=== PATIENT | female | born 1935 | race Caucasian/White ===

== ENCOUNTER 2016-07-31 08:41 | Outpatient (RCR) | payer MEDICARE ==
--- OUTSIDE RECORDS SUMMARY | 2016-07-03 09:04 | XMS REPORT | Continuity of Care Document ---
Author Author [facility] Organization [facility] Address Unknown Phone Unavailable Care Team Providers Care Senior Java Web Developer Name Role Phone Eugene Mcneill PCP [phone] Source Comments Some departments are not documenting in the electronic medical record. If you do not see the information that you expected, contact Release of Information in the Health Information Management department at [phone] for further assistance in locating additional records.[facility] Active Allergies and Adverse Reactions No Known Allergies Current Medications Prescription Sig. Disp. Refills Start End Date Status Date insulin glargine (LANTUS Inject 40 Units into Active SOLOSTAR) 100 unit/mL (3 area(s) as directed at mL) injection PEN bedtime daily. insulin lispro(+) Inject 12 Units into Active (HUMALOG) 100 unit/mL area(s) as directed three injection times daily before meals. amLODIPine (NORVASC) 10 Take 10 mg by mouth Active mg tablet daily. telmisartan (MICARDIS) 80 Take 80 mg by mouth Active mg tablet daily. levothyroxine (SYNTHROID) Take 150 mcg by mouth Active 150 mcg tablet daily. simvastatin (ZOCOR) 20 mg Take 20 mg by mouth at Active tablet bedtime daily. estrogens, conjugated Take 1.25 mg by mouth Active (PREMARIN) 1.25 mg tablet daily. esomeprazole DR(+) Take 40 mg by mouth every Active (NEXIUM) 40 mg capsule morning. tolterodine LA(+) (DETROL Take 4 mg by mouth daily. Active LA) 4 mg capsule clorazepate (TRANXENE Take 7.5 mg by mouth Active T-TAB) 7.5 mg tablet twice daily. gabapentin (NEURONTIN) Take 300 mg by mouth Active 300 mg capsule three times daily. carbidopa/levodopa Take 1 Tab by mouth three Active (SINEMET) 25/100 mg times daily. tablet oxyCODONE SR (OXYCONTIN) Take 20 mg by mouth every Active 20 mg tablet 12 hours oxyCODONE SR (OXYCONTIN) Take 10 mg by mouth every Active 10 mg tablet 12 hours [place]-3 Acid Ethyl Esters Take 1 g by mouth twice Active (LOVAZA) 1 gram cap daily with meals. GUAIFENESIN (MUCINEX PO) Take 600 mg by mouth. Active ascorbic acid (VITAMIN-C) Take 500 mg by mouth Active 500 mg tablet daily. CALCIUM CARBONATE/VITAMIN Take by mouth. Active D3 (CALCIUM + D PO) MULTIVITAMINS W/C PO Take by mouth. Active BLOOD GLUCOSE CONTROL Use as directed. Active HIGH&LOW (ASCENSIA AUTODISC MISC) ALPRAZolam (XANAX) 0.25 Take 0.25 mg by mouth at Active mg tablet bedtime as needed. fexofenadine(+) (DAGOBERTO) Take 180 mg by mouth Active 180 mg tablet daily. furosemide (LASIX) 20 mg Take 20 mg by mouth Active tablet daily. potassium chloride SR Take 20 mEq by mouth Active (K-DUR) 20 mEq tablet daily. hydrOXYzine (ATARAX) 25 Take 25 mg by mouth three Active mg tablet times daily as needed. diazepam (VALIUM) 5 mg Take 1 tab with only 1 oz 1 Tab 0 08/17/19 Active tablet of water 1 hour before 15 your MRI. Active Problems Problem Noted Date Abdominal pain 11/15/2014 Hypertension 07/28/2014 Diabetes mellitus (HCC) 07/28/2014 Social History Tobacco Use Types Packs/Day Years Used Date Never Smoker Alcohol Use Drinks/Week oz/Week Comments No Last Filed Vital Signs Vital Sign Reading Time Taken Blood Pressure 173/74 11/09/2014 11:06 AM CDT Pulse 70 11/09/2014 11:06 AM CDT Temperature 36.8 C (98.3 F) 11/09/2014 11:01 AM CDT Respiratory Rate 14 11/09/2014 11:01 AM CDT Height 1.58 m (5' 2.21") 11/09/2014 11:01 AM CDT Weight 94.348 kg (208 lb) 11/09/2014 11:01 AM CDT Body Mass Index 37.79 11/09/2014 11:01 AM CDT Oxygen Saturation - - Plan of Care Health Maintenance Due Date Last Done Comments Physical (Comprehensive) 1942 Exam Pertussis Vaccine 1946 Tetanus Vaccine 1952 Breast Cancer Screening 1975 Shingles Vaccine 1995 Osteoporosis Screening 2000 Prevnar/Pneumovax (#1) 2000 Influenza Vaccine 03/21/2015 Results from Last 3 Months Not on file
[~2016-07-31 08:41] MED LIST: ACCURETIC PO; ALPR.25T PO; ALPR0.254 PO; ALPR0.5T22; AML5T PO; AMLO10TA2 PO; AMLO10TA82 PO; AMOX-355 PO; ASCO10006 PO; ATR20T; AZEL137S2 NS; C250T PO; CARB1TAB19 PO; CARB1TAB6 PO; CARV12.5; CLD600T PO; CLN.1T; CLOB15OI2 TOP; CLON0.1T PO; CLOR7.5T3 PO; CLR7.5T PO; CTLP20T PO; DICL100G20 TOP; DM/P1CAP51 PO; ESOM40CA52 PO; EST1.25T PO; FEXO180T PO; FURO20TA4 PO; GABA-488 PO; GBPN100C; GBPN100C PO; GBPN300C PO; GFN600TCR; GFN600TCR PO; GLUCOVANCE; GUAI120013 PO; HYDR-34; HYDR-707 PO; INSASP10V; INSASP10V SQ; INSU100C4 SQ; INSU100I10 SQ; INSU100I23 SQ; INSU100V6 SQ; INSU100V8; LEVO125T PO; LEVO125T6 PO; LEVO137T17 PO; LEVO150T PO; LEVO25TA5 PO; LOVAZA; LVCR25100; LVT.1T; MULT1TAB63 PO; NF-ESOM40C PO; NF-LOVAZAC PO; NF-METANX; OMEG-105 PO; ONDA8TAB9 PO; OXYC10TA7 PO; OXYC20TA63 PO; OXYM30SP NS; PATANOL 0.1%; POLY17PO23 PO; POTA20TA15 PO; POTA20TA8 PO; PRD1T PO; PRD20T PO; PROP1TAB77; SCR1T1 PO; SIMV20TA3 PO; SIMV40TA2 PO; TELM80TA5 PO; TOLT4CAP13 PO; TOLTA4 PO; VITAMIN C 1000MG PO; [UNRECOGNIZED DRUG - CODE] PO; [UNRECOGNIZED DRUG - CODE] TOP
== END 2016-07-31 16:00 | disposition home or self-care (01) ==
LOC: WOUNDCARE 08:41
PROVIDERS: ATTEND Surgery
DX: L12.0 Bullous pemphigoid (principal); L97.222 Non-pressure chronic ulcer of left calf with fat layer exposed; D69.3 Immune thrombocytopenic purpura
CPT/HCPCS: 11042; 87070; 87075; 87077; 87186; 87205; 99212

== ENCOUNTER → 2016-08-07 | Outpatient (CLI) | payer MEDICARE ==
--- OUTSIDE RECORDS SUMMARY | 2016-08-07 08:55 | XMS REPORT | Continuity of Care Document ---
Author Author [facility] Organization [facility] Address Unknown Phone Unavailable Care Team Providers Care Agent Ticketing Gate Name Role Phone Eugene Mcneill PCP [phone] Source Comments Some departments are not documenting in the electronic medical record. If you do not see the information that you expected, contact Release of Information in the Health Information Management department at [phone] for further assistance in locating additional records.[facility] Active Allergies and Adverse Reactions No Known [...] every Active 10 mg tablet 12 hours [place]-3 Acid Ethyl Esters Take 1 g by [...]
--- NOTE | 2016-08-07 10:03 | Diagnostic Imaging Report ---
PROCEDURE: US abdomen complete. TECHNIQUE: Multiple real-time grayscale images were obtained over the abdomen in various projections. INDICATION: Abdominal pain after eating. FINDINGS: The dome of the liver is not well visualized due to patient's body habitus. There is diffuse increased echogenicity of the liver compatible with fatty infiltration. The gallbladder is surgically absent. There is mild prominence of the common bile duct up to 8 mm. This is likely reflective of previous cholecystectomy and the patient's age. The pancreas is obscured by bowel gas. Spleen is normal in size. The distal aorta is normal in caliber; however, the proximal aorta is not well seen. IVC is not well seen. Both kidneys are unremarkable. There is no ascites. IMPRESSION: Fatty infiltration of the liver. Previous cholecystectomy. Otherwise unremarkable abdominal ultrasound. Dictated by: Dictated on workstation # [id number]
== END ==
LOC: RAD 08:52
PROVIDERS: ATTEND Internal Medicine
DX: K55.9 Vascular disorder of intestine, unspecified (principal)
CPT/HCPCS: 76700

== ENCOUNTER → 2016-08-19 | Outpatient (CLI) | payer MEDICARE, BC ==
--- OUTSIDE RECORDS SUMMARY | 2016-08-19 09:52 | XMS REPORT | Continuity of Care Document ---
Author Author [facility] Organization [facility] Address Unknown Phone Unavailable Care Team Providers Care Instrument Tech Name Role Phone Eugene Mcneill PCP [phone] Source Comments Some departments are not documenting in the electronic medical record. If you do not see the information that you expected, contact Release of Information in the Health Information Management department at [phone] for further assistance in locating additional records.[facility] Active Allergies and Adverse Reactions [...] every Active 10 mg tablet 12 hours [place]-3 Acid Ethyl Esters Take 1 g by [...]
--- NOTE | 2016-08-19 13:28 | Diagnostic Imaging Report ---
INDICATION: Abdominal pain. TECHNIQUE: Duplex evaluation of the aorta and mesenteric branches was performed. FINDINGS: The aorta is normal in caliber and has normal blood flow. There is detectable flow in the superior mesenteric artery. The celiac axis could not be located or assessed. IMPRESSION: The upper abdominal ultrasound to evaluate the vascular structures is limited. The aorta is patent but its branches are obscured by bowel gas. Dictated by: Dictated on workstation # [id number]
== END ==
LOC: RAD 09:49
PROVIDERS: ATTEND Internal Medicine
DX: R10.84 Generalized abdominal pain (principal)
CPT/HCPCS: 93975

== ENCOUNTER → 2017-01-14 | Outpatient (CLI) | payer MEDICARE, BC ==
--- NOTE | 2017-01-14 17:19 | Diagnostic Imaging Report ---
INDICATION: Right foot pain and swelling. TECHNIQUE: AP, oblique, and lateral views of the right foot are obtained. FINDINGS: There are minimally displaced fractures involving the proximal shafts of the second and third metatarsal bones. There is associated degenerative change of the first through third tarsometatarsal joints. There is also rather advanced degenerative change in the great toe with flexion contractures of second through fifth toes. There is plantar calcaneal spurring. Swelling is noted about the midfoot. IMPRESSION: Minimally displaced fractures involving the proximal shafts of second and third metatarsal bones. Intra-articular extension is not excluded. Otherwise, there are degenerative changes in the right foot without other acute fracture or dislocation detected. Dictated by: Dictated on workstation # [id number]
== END ==
LOC: RAD 14:22
PROVIDERS: ATTEND Internal Medicine
DX: S92.321A Displaced fracture of second metatarsal bone, right foot, initial encounter for closed fracture (principal); S92.331A Displaced fracture of third metatarsal bone, right foot, initial encounter for closed fracture; M19.071 Primary osteoarthritis, right ankle and foot; X58.XXXA Exposure to other specified factors, initial encounter; Y99.8 Other external cause status
CPT/HCPCS: 73630

== ENCOUNTER → 2017-02-06 | Outpatient (CLI) | payer MEDICARE, BC ==
[2017-02-06 10:11] LABS: BASOPHILS # (AUTO) 0.1 10^3/uL (0.0-0.1); BASOPHILS % (AUTO) 1 % (0-10); EOSINOPHILS # (AUTO) 0.2 10^3/uL (0.0-0.3); EOSINOPHILS % (AUTO) 3 % (0-10); LYMPHOCYTES # (AUTO) 2.1 X 10^3 (1.0-4.0); LYMPHOCYTES % (AUTO) 32 % (12-44); MEAN CORPUSCULAR HEMOGLOBIN 29 PG (25-34); MEAN CORPUSCULAR HGB CONC 32 G/DL (32-36); MEAN CORPUSCULAR VOLUME 91 FL (80-99); MONOCYTES # (AUTO) 0.6 X 10^3 (0.0-1.0); MONOCYTES % (AUTO) 9 % (0-12); NEUTROPHILS # (AUTO) 3.7 X 10^3 (1.8-7.8); NEUTROPHILS % (AUTO) 55 % (42-75); PLATELET COUNT 206 10^3/uL (130-400); RED BLOOD COUNT 4.66 10^6/uL (4.35-5.85); RED CELL DISTRIBUTION WIDTH 14.6 % (10.0-14.5); WHITE BLOOD COUNT 6.7 10^3/uL (4.3-11.0)
[2017-02-06 10:39] LABS: ALANINE AMINOTRANSFERASE 17 U/L (0-55); ALBUMIN 3.5 GM/DL (3.2-4.5); ANION GAP 9 MMOL/L (5-14); ASPARTATE AMINO TRANSFERASE 15 U/L (5-34); BILIRUBIN,TOTAL 0.5 MG/DL (0.1-1.0); BLOOD UREA NITROGEN 13 MG/DL (7-18); BUN/CREATININE RATIO 15; CARBON DIOXIDE 29 MMOL/L (21-32); CHLORIDE 102 MMOL/L (98-107); CREATININE SERUM 0.89 MG/DL (0.60-1.30); GFR ESTIMATED > 60; GLUCOSE 275 MG/DL (70-105); LACTATE DEHYDROGENASE 183 U/L (125-220); POTASSIUM 3.6 MMOL/L (3.6-5.0); SODIUM 140 MMOL/L (135-145); TOTAL PROTEIN 6.7 GM/DL (6.4-8.2)
== END ==
LOC: ONC 09:43
PROVIDERS: ATTEND Internal Medicine Hematology & Oncology
DX: D69.3 Immune thrombocytopenic purpura (principal); D64.9 Anemia, unspecified; E11.9 Type 2 diabetes mellitus without complications; Z79.4 Long term (current) use of insulin; Z79.899 Other long term (current) drug therapy
CPT/HCPCS: 36415; 80053; 83615; 85025; 99213

== ENCOUNTER → 2017-10-08 | Outpatient (CLI) | payer MEDICARE, BC | LOC: WOUNDCARE 12:40 | PROVIDERS: ATTEND Surgery | DX: L98.491 Non-pressure chronic ulcer of skin of other sites limited to breakdown of skin (principal); L22 Diaper dermatitis | CPT/HCPCS: 99213 ==

== ENCOUNTER → 2017-10-13 | Outpatient (CLI) | payer MEDICARE, BC | LOC: WOUNDCARE 09:37 | PROVIDERS: ATTEND Surgery | DX: L98.491 Non-pressure chronic ulcer of skin of other sites limited to breakdown of skin (principal); L22 Diaper dermatitis | CPT/HCPCS: 99212 ==

== ENCOUNTER 2018-02-16 09:24 | Outpatient (RCR) | payer MEDICARE, BC ==
[~2018-02-16 09:24] MED LIST changes: -AMLO10TA2 PO; +AMLO10TA6 PO; -TELM80TA5 PO; +TELM80TA8 PO
[2018-02-16 09:38] LABS: BASOPHILS # (AUTO) 0.1 10^3/uL (0.0-0.1); BASOPHILS % (AUTO) 1 % (0-10); EOSINOPHILS # (AUTO) 0.2 10^3/uL (0.0-0.3); EOSINOPHILS % (AUTO) 3 % (0-10); HEMATOCRIT 41 % (35-52); HEMOGLOBIN 13.9 G/DL (11.5-16.0); LYMPHOCYTES # (AUTO) 2.3 X 10^3 (1.0-4.0); LYMPHOCYTES % (AUTO) 29 % (12-44); MEAN CORPUSCULAR HEMOGLOBIN 31 PG (25-34); MEAN CORPUSCULAR HGB CONC 34 G/DL (32-36); MEAN CORPUSCULAR VOLUME 91 FL (80-99); MEAN PLATELET VOLUME 11.2 FL (7.4-10.4); MONOCYTES # (AUTO) 0.6 X 10^3 (0.0-1.0); MONOCYTES % (AUTO) 7 % (0-12); NEUTROPHILS # (AUTO) 4.6 X 10^3 (1.8-7.8); NEUTROPHILS % (AUTO) 60 % (42-75); PLATELET COUNT 178 10^3/uL (130-400); RED BLOOD COUNT 4.51 10^6/uL (4.35-5.85); RED CELL DISTRIBUTION WIDTH 13.6 % (10.0-14.5); WHITE BLOOD COUNT 7.7 10^3/uL (4.3-11.0)
[2018-02-16 09:55] LABS: ALBUMIN 3.7 GM/DL (3.2-4.5); BILIRUBIN,TOTAL 0.3 MG/DL (0.1-1.0); CALCIUM 8.9 MG/DL (8.5-10.1); POTASSIUM 4.1 MMOL/L (3.6-5.0); TOTAL PROTEIN 6.9 GM/DL (6.4-8.2)
[2018-02-16] MEDS ORDERED: inSUlin (REGULAR) HUMAN 1 UNIT/0.01 ML (CHARGE PER UNIT) SC ONE (11:05)
== END 2018-02-17 | disposition home or self-care (01) ==
LOC: ONC 09:24
PROVIDERS: ATTEND Internal Medicine Hematology & Oncology
DX: D69.3 Immune thrombocytopenic purpura (principal); D64.9 Anemia, unspecified; E11.9 Type 2 diabetes mellitus without complications; Z79.4 Long term (current) use of insulin; Z79.899 Other long term (current) drug therapy
CPT/HCPCS: 36415; 80053; 83615; 85025; 96372

== ENCOUNTER → 2018-04-09 | Outpatient (CLI) | payer MEDICARE, BC ==
[~2018-04-09] MED LIST changes: +IOHEXOL 350 MG/ML 100 ML (OMNIPAQUE 350) VIAL IV ONE; +NS 250 ML (IVPB) BAG IV ONE
[2018-04-09 08:08] LABS: BASOPHILS # (AUTO) 0.1 10^3/uL (0.0-0.1); BASOPHILS % (AUTO) 1 % (0-10); EOSINOPHILS # (AUTO) 0.3 10^3/uL (0.0-0.3); EOSINOPHILS % (AUTO) 4 % (0-10); HEMATOCRIT 40 % (35-52); LYMPHOCYTES # (AUTO) 3.4 X 10^3 (1.0-4.0); LYMPHOCYTES % (AUTO) 48 % (12-44); MEAN CORPUSCULAR HEMOGLOBIN 31 PG (25-34); MEAN CORPUSCULAR HGB CONC 35 G/DL (32-36); MEAN CORPUSCULAR VOLUME 88 FL (80-99); MEAN PLATELET VOLUME 10.7 FL (7.4-10.4); MONOCYTES # (AUTO) 0.5 X 10^3 (0.0-1.0); MONOCYTES % (AUTO) 7 % (0-12); NEUTROPHILS # (AUTO) 2.9 X 10^3 (1.8-7.8); NEUTROPHILS % (AUTO) 41 % (42-75); PLATELET COUNT 193 10^3/uL (130-400); RED BLOOD COUNT 4.57 10^6/uL (4.35-5.85); RED CELL DISTRIBUTION WIDTH 14.2 % (10.0-14.5)
[2018-04-09 08:33] LABS: ALBUMIN 3.7 GM/DL (3.2-4.5); BILIRUBIN,TOTAL 0.3 MG/DL (0.1-1.0); CALCIUM 9.4 MG/DL (8.5-10.1); CREATININE SERUM 0.96 MG/DL (0.60-1.30); POTASSIUM 3.3 MMOL/L (3.6-5.0); TOTAL PROTEIN 6.6 GM/DL (6.4-8.2)
--- NOTE | 2018-04-09 10:50 | Diagnostic Imaging Report ---
PROCEDURE: CT abdomen and pelvis with contrast. TECHNIQUE: Multiple contiguous axial images were obtained through the abdomen and pelvis after administration of intravenous contrast. INDICATION: Mid and upper abdominal pain. Comparison is made with prior CT from 06/09/2014. The lung bases are clear. Areas of hypodensity noted on previous exam within the liver are not apparent on today's study. No discrete liver mass is seen. Gallbladder is surgically absent. The pancreas is atrophic. The spleen is unremarkable. No adrenal mass is detected. The kidneys are unremarkable. There appear to be post surgical changes to the abdomen of a right hemicolectomy with ileocolic anastomosis. The visualized small bowel loops are normal caliber. No definite small bowel obstruction is seen. There is some moderate fluid-filled distention of the colon. No free fluid is identified. No inflammatory process is seen. Aorta is non-aneurysmal. Bladder is unremarkable. No abdominal or pelvic lymphadenopathy is seen. IMPRESSION: 1. Postsurgical changes in abdomen. No acute feature in the abdomen or pelvis is seen. Dictated by: Dictated on workstation # [id number]
== END ==
LOC: RAD 07:49
PROVIDERS: ATTEND Internal Medicine
DX: R10.84 Generalized abdominal pain (principal); E11.65 Type 2 diabetes mellitus with hyperglycemia; E03.9 Hypothyroidism, unspecified; E78.00 Pure hypercholesterolemia, unspecified
CPT/HCPCS: 36415; 74177; 80053; 82150; 83690; 85025

== ENCOUNTER 2018-04-10 05:36 | Outpatient (CLI) | payer MEDICARE, BC ==
[~2018-04-10] VITALS: Ht 157.5 cm; Wt 101.6 kg
[~2018-04-10 05:36] MED LIST changes: -IOHEXOL 350 MG/ML 100 ML (OMNIPAQUE 350) VIAL IV ONE; -NS 250 ML (IVPB) BAG IV ONE
== END 2018-04-10 09:28 | disposition home or self-care (01) ==
LOC: PREOP 05:36
PROVIDERS: ATTEND Surgery
DX: Z01.818 Encounter for other preprocedural examination (principal)

== ENCOUNTER 2018-04-13 06:30 | Day surgery (SDC) | payer MEDICARE, BC ==
[~2018-04-13] VITALS: Ht 157.5 cm; Wt 101.6 kg
--- OUTSIDE RECORDS SUMMARY | 2018-04-13 06:36 | XMS REPORT | Clinical Summary ---
Author Author [facility] Organization [facility] Address Unknown Phone Unavailable Care Team Providers Care Structural Steel Painter Name Role Phone Eugene Mcneill MD Unavailable Eugene Mcneill MD PCP Devin Stevens MD Unavailable Source Comments Some departments are not documenting in the electronic medical record. If you do not see the information that you expected, contact Release of Information in the Health Information Management department at [phone] for further assistance in locating additional records.[facility] Allergies No Known Allergies Current Medications Prescription Sig. [...] every Active 10 mg tablet 12 hours [place]-3 Acid Ethyl Esters Take 1 g by [...] 11/15/2014 Hypertension 07/28/2014 Diabetes mellitus (HCC) 07/28/2014 Family History Relation Name Status Comments Social History Tobacco Use Types Packs/Day Years Used Date Never Smoker Alcohol Use Drinks/Week oz/Week Comments No Sex Assigned at Date Recorded Not on file Last Filed Vital Signs Vital Sign Reading Time Taken Blood Pressure 173/74 11/09/2014 11:06 AM CDT Pulse 70 11/09/2014 11:06 AM CDT Temperature 36.8 C (98.3 F) 11/09/2014 11:01 AM CDT Respiratory Rate 14 11/09/2014 11:01 AM CDT Oxygen Saturation - - Inhaled Oxygen - - Concentration Weight 94.3 kg (208 lb) 11/09/2014 11:01 AM CDT Height 158 cm (5' 2.21") 11/09/2014 11:01 AM CDT Body Mass Index 37.79 11/09/2014 11:01 AM CDT Plan of Treatment Health Maintenance Due Date Last Done Comments PHYSICAL (COMPREHENSIVE) 1942 EXAM PERTUSSIS VACCINE 1946 TETANUS VACCINE 1952 SHINGLES RECOMBINANT 1985 VACCINE (1 of 2) OSTEOPOROSIS SCREENING 2000 PNEUMONIA (PCV13/PPSV23) 2000 VACCINES (1 of 2 - PCV13) INFLUENZA VACCINE 04/20/2018 Results Not on filefrom Last 3 Months
--- OUTSIDE RECORDS SUMMARY | 2018-04-13 06:38 | XMS REPORT | Clinical Summary ---
Author Author User, ALEXANDREA Organization [facility] Physician [place] Address Unknown Phone Unavailable Allergies, Adverse Reactions, Alerts Allergy Name Reaction Description Start Date Severity Status Provider ANNETTE Critical No Longer Active Tressa Stephens Conditions or Problems Problem Name Problem Code Onset Date Status Entry Date Provider Comment Standard Description Annotate DIABETES MELLITUS, TYPE II, UNCONTROLLED, W/VASCULAR COMPS 250.72 Active Tressa Stephens Diabetes mellitus with peripheral circulatory disorders, type II or unspecified type, uncontrolled HYPOTHYROIDISM 244.9 Active Tressa Stephens Unspecified hypothyroidism HYPERCHOLESTEROLEMIA 272.0 Active Tressa Stephens Pure hypercholesterolemia HYPERTENSION, ACCELERATED OR MALIGNANT 401.0 Active Tressa Stephens Malignant essential hypertension OSTEOARTHRITIS 715.90 Active Tressa Stephens Osteoarthrosis, unspecified whether generalized or localized, involving unspecified site GASTROESOPHAGEAL REFLUX DISEASE, CHRONIC 530.81 Active Tressa Stephens Esophageal reflux HRT V07.4 Active Tressa Stephens Hormone replacement therapy (postmenopausal) BACK PAIN 724.5 Resolved Tressa Stephens Backache, unspecified FOOT PAIN, RIGHT 729.5 Resolved Tressa Stephens Pain in limb DIARRHEA, ACUTE 787.91 Resolved Tressa Stephens Diarrhea DISORDER, VOLUME DEPLETION, HYPOVOLEMIA 276.52 Resolved Tressa Stephens Hypovolemia 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 Resolved Tressa Stephens Herpes zoster with other nervous system complications right shoulder DYSPNEA 786.09 Resolved Tressa Stephens Other dyspnea and respiratory abnormality HYPERTONICITY, BLADDER 596.51 Resolved Tressa Stephens Hypertonicity of bladder EDEMA LEG 782.3 Resolved Tressa Stephens Edema SINUS CONGESTION, CHRONIC 478.1 Resolved Tressa Stephens Other diseases of nasal cavity and sinuses SLEEP APNEA, OBSTRUCTIVE 780.57 Active Tressa Stephens Unspecified sleep apnea CYST, SYNOVIAL, OTHER 727.49 Resolved Tressa Stephens Other ganglion and cyst of synovium, tendon, and bursa right wrist VACCINE AGAINST INFLUENZA V04.81 Resolved Tressa Stephens Need for prophylactic vaccination and inoculation against influenza DYSPHAGIA 787.2 Resolved Tressa Stephens Dysphagia OTHER DYSPHAGIA 787.29 Resolved Tressa Stephens Other dysphagia PNEUMONIA 486 Resolved Tressa Stephens Pneumonia, organism unspecified DEHYDRATION 276.51 Resolved Tressa Stephens Dehydration WHEEZING 786.07 Resolved Tressa Stephens Wheezing BRONCHIECTASIS 494.0 Resolved Tressa Stephens Bronchiectasis without acute exacerbation COUGH 786.2 Resolved Tressa Stephens Cough LEG PAIN, BILATERAL 729.5 Resolved Tressa Stephens Pain in limb SINUSITIS, SPHENOIDAL, ACUTE 461.3 Resolved Tressa Stephens Acute sphenoidal sinusitis 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 Resolved Tressa Stephens Benign neoplasm of adrenal gland PETECHIAE 782.7 Resolved Tressa Stephens Spontaneous ecchymoses 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 Tressa Stephens 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 Tressa Stephens Pemphigoid LYMPHEDEMA 457.1 Active Tressa Stephens Other lymphedema ABDOMINAL PAIN, EPIGASTRIC 789.06 Resolved Tressa Stephens Abdominal pain, epigastric VACCINE AGAINST STREPTOCOCCUS PNEUMONIAE V03.82 Resolved Tressa Stephens Need for prophylactic vaccination against Streptococcus pneumoniae [pneumococcus] SYNCOPE 780.2 Resolved Tressa Stephens Syncope and collapse SICK SINUS SYNDROME 427.81 Resolved Tressa Stephens Sinoatrial node dysfunction CHRONIC PAIN V15.89 Active Tressa Stephens Other specified personal history presenting hazards to health MUSCLE PAIN 729.1 Resolved Tressa Stephens Myalgia and myositis, unspecified POLYMYALGIA RHEUMATICA 725 Resolved Tressa Stephens Polymyalgia rheumatica EDEMA LEG 782.3 Active Tressa Stephens Edema DEHYDRATION 276.51 Resolved Tressa Stephens Dehydration VOMITING, PERSISTENT 536.2 Resolved Tressa Stephens Persistent vomiting PHLEBITIS, SUPERFICIAL ARM VEINS 451.82 Resolved Tressa Stephens Phlebitis and thrombophlebitis of superficial veins of upper extremities COLITIS 558.9 Resolved Tressa Stephens Other and unspecified noninfectious gastroenteritis and colitis ENCEPHALOPATHY, UNSPECIFIED 348.30 Resolved Tressa Stephens Encephalopathy, unspecified COLONIC POLYPS 211.3 Resolved Tressa Stephens Benign neoplasm of colon CELLULITIS 682.9 Inactive Tressa Stephens Cellulitis and abscess of unspecified sites CELLULITIS 682.9 Resolved Tressa Stephens Cellulitis and abscess of unspecified sites KNEE PAIN 719.46 Resolved Tressa Stephesn Pain in joint involving lower leg PETECHIAE 782.7 Resolved Tressa Stephens Spontaneous ecchymoses ABDOMINAL PAIN, EPIGASTRIC 789.06 Active Tressa Stephens Abdominal pain, epigastric POLYMYALGIA RHEUMATICA 725 Resolved Tressa Stephens Polymyalgia rheumatica KNEE PAIN 719.46 Active Tressa Stephens Pain in joint involving lower leg 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 DIARRHEA, RECURRENT 787.91 Active Tressa Stephens Diarrhea Medication List Medication Instructions Start Date Stop Date Generic Name NDC Status Provider Patient Instruction POTASSIUM CHLORIDE ER 20 MEQ CR-TABS 1 PO DAILY POTASSIUM CHLORIDE 61509199093 Active Carlyn Marks HYDROXYZINE HCL 25 MG TABS 1 PO TID prn HYDROXYZINE HCL 82354116923 No Longer Active Tressa Stephens VALIUM 2 MG TAB 1-2 PO before MRI procedure DIAZEPAM 63818199158 No Longer Active Tressa Stephens OXYCONTIN 20 MG [id number] 1 PO Q 12hrs scheduled OXYCODONE HCL No Longer Active Tressa Stephens HUMALOG KWIKPEN 100 UNIT/ML SOPN 12 units before each meal INSULIN LISPRO (HUMAN) 97745570145 Active Tressa Danica Setphens PREDNISONE 20 MG TAB 3 PO at one time daily PREDNISONE 63425384729 No Longer Active Tressa Danica Stephens ZOSTAVAX 38301 UNT/0.65ML SOLR 1 injection once to prevent Shingles ZOSTER VACCINE LIVE 83985028322 No Longer Active Tressa Danica Stephens VOLTAREN 1 % GEL Apply to affected area twice daily prn pain. DICLOFENAC SODIUM 78579980100 No Longer Active Tressaino Stephens ASTEPRO 0.15 % SOLN 1 puff each nostril TID AZELASTINE HCL 30807136420 No Longer Active Tressa Danica Stephens CELEXA 20 MG TABS 1 PO daily CITALOPRAM HYDROBROMIDE 12276910085 No Longer Active Tressa Danica Stephens KEFLEX 500 MG CAP 1 PO TID for 7 days CEPHALEXIN 27473318697 No Longer Active Carlyn Marks SYNTHROID 150 MCG TABS 1 PO Daily LEVOTHYROXINE SODIUM 86853808211 Active Carlyn Marks NEURONTIN 300 MG CAP 1-2 PO BID GABAPENTIN 99866677273 Active Tressa Danica ACEVEDO ODT 8 MG TBDP 1 po q 6hrs prn nausea ONDANSETRON 07940921782 No Longer Active Tressa Danica Stephens CARAFATE 1 GM TABS 1 PO 30 minutes before meals and at bedtime SUCRALFATE 12043050373 No Longer Active Tressa Danica Stephens SYNTHROID 150 MCG TABS 1 PO every other day alternating with 137mcg LEVOTHYROXINE SODIUM 19291999241 No Longer Active Tressa Danica Stephens INDOMETHACIN 50 MG CAPS 1 PO TID for 5 days INDOMETHACIN 83234986588 No Longer Active Tressaino Stephens PREDNISONE 5 MG TABS 2 Po daily for 2 weeks and then change to 1 PO daily for 2 weeks. PREDNISONE 96547674487 No Longer Active Tressa Danica Stephens XANAX 0.25 MG TABS 1-2 PO Q6hrs prn ALPRAZOLAM 58640163416 Active Tressa Danica Stephens LASIX 20 MG TAB 1 PO BID prn swelling FUROSEMIDE 88331823983 Active Tressa Danica Stephens PREDNISONE 20 MG TAB 1 PO daily PREDNISONE 54931897095 No Longer Active Tressaino Stephens FLUDROCORTISONE ACETATE 0.1 MG TABS 1 PO daily FLUDROCORTISONE ACETATE 40123302001 No Longer Active Tressaino Stephens ACCURETIC 20-12.5 MG TABS 1 PO daily QUINAPRIL- HYDROCHLOROTHIAZIDE 55157375586 No Longer Active Tressaino Stephens SYNTHROID 150 MCG TABS 1 PO alternating with 137 mcg every other day LEVOTHYROXINE SODIUM 25590367646 No Longer Active Tressaino Stephens OXYCODONE HCL 10 MG TABS 2 PO Q4hrs prn OXYCODONE HCL 98208203837 Active Tressaino Stephens OXYCONTIN 20 MG [id number] 1 PO Q12hrs scheduled OXYCODONE HCL 90437981043 No Longer Active Tressa Danica Stephens COREG 12.5 MG TABS 1 PO BID for Blood pressure (on hold 04/30) CARVEDILOL 65453360135 No Longer Active Tressa Danica Stephens DAGOBERTO 180 MG TABS 1 PO QD FEXOFENADINE HCL Active Tressaino Stephens ZOCOR 20 MG TAB 1 PO daily SIMVASTATIN 49805554752 Active Tressa Danica Stephens MIRALAX POWD 1 scoop in 4oz of water PO BID POLYETHYLENE GLYCOL 3350 16883065047 Active Susanna Bruno DARVOCET-N 100 100-650 MG TAB 1 PO Q6hrs prn pain PROPOXYPHENE N-APAP 35040414606 No Longer Active Tressa Danica LAW'Wero NASAL SPRAY (DEXAMETHASONE, GENTAMICIN, SALINE) 2 puffs each nostril TID x [address] MYERS NASAL SPRAY ( DEXAMETHASONE, GENTAMICIN, SALINE) No Longer Active Tressa Danica Stephens SINEMET 25-100 MG TABS 1 po TID CARBIDOPA-LEVODOPA 86658941676 Active Tressa Danica Stephens BENADRYL 25 MG CAP 1 PO Q6hrs prn itching DIPHENHYDRAMINE HCL 23052783410 No Longer Active Tressa Danica Stephens NEXIUM 40 MG CPDR 1 PO daily ESOMEPRAZOLE MAGNESIUM 39304971590 Active Tressa Danica Stephens K-PHOS TABS 1 po BID POTASSIUM PHOSPHATE MONOBASIC TABS 89601795101 No Longer Active Tressa Danica Stephens MICARDIS 80 MG TABS 1 po daily TELMISARTAN 05535280104 Active Tressa Danica Stephens MULTIVITAMINS TABS 1 PO QD MULTIPLE VITAMIN 51350440082 No Longer Active Tressaino Stephens LANTUS SOLOSTAR 100 UNIT/ML SOLN 40 units SQ QHS INSULIN GLARGINE 10385812234 Active Tressa Danica Stephens PATANOL 0.1 % SOLN 2 drops in each eye BID prn OLOPATADINE HCL 74145286160 No Longer Active Tressa Danica Stephens FISH OIL 1000 MG CAPS 2 tabs po TID OMEGA-3 FATTY ACIDS 43772464644 No Longer Active Tressa Danica Stephens PREMARIN 1.25 MG TAB 1 PO daily ESTROGENS CONJUGATED 56487738463 Active Tressa Danica Stephens PEN NEEDLES 1/2" 29G X 12MM MISC as directed on the Lantus Pen INSULIN PEN NEEDLE 31330043787 No Longer Active Tressa Danica Stephens BD INSULIN SYRINGE ULTRAFINE 29G X 1/2" 1 ML MISC as directed DX: Diabetes INSULIN SYRINGE-NEEDLE U-100 41434854273 No Longer Active Tressa Danica Stephens LOVAZA 1 GM CAPS 2 po BID [id number] ETHYL ESTERS 06038998222 Active Tressa Danica Stephens PREDNISONE 10 MG TAB 1 PO daily PREDNISONE 47990521915 No Longer Active Tressa Danica Stephens ALPRAZOLAM 0.25 MG TABS 1/2 to 1 tab po q 8 hrs prn anxiety 07/24 ALPRAZOLAM 33475868799 No Longer Active Tressa Danica Stephens TRANXENE-T 7.5 MG TABS 1 po BID prn CLORAZEPATE DIPOTASSIUM 46371190162 Active Tressa Danica Stephens ZESTRIL 20 MG TABS 1 po daily LISINOPRIL 97581253101 No Longer Active Tressa Danica Stephens MUCINEX 600 MG [id number] 1 po TID GUAIFENESIN 81574936950 Active Tressa Danica Stephens DARVOCET-N 100 100-650 MG TAB 1 PO Q6hrs prn pain PROPOXYPHENE N-APAP 87793250907 No Longer Active Tressa Danica Stephens METANX 2.8-25-2 MG TABS 1 PO daily [id number] 14065242607 No Longer Active Tressa Danica Stephens SINEMET 25-100 MG TABS 2 PO BID prn CARBIDOPA-LEVODOPA 45139074945 No Longer Active Tressa Danica Stephens LOVAZA 1 GM CAPS 2 po BID [id number] ETHYL ESTERS 49594167914 No Longer Active Tressa Danica Stephens LORTAB 10 TABS 1 po q 4 hrs prn pain HYDROCODONE- ACETAMINOPHEN TABS 47189758623 No Longer Active Tressa Danica Stephens CALCIUM 600 + D 600-200 MG-UNIT TABS 1 po daily CALCIUM CARBONATE-VITAMIN D 88026333213 Active Tressa Danica Stephens VITAMIN C 500 MG TABS 1 po BID ASCORBIC ACID 93672896628 Active Tressa Danica Stephens CLORAZEPATE DIPOTASSIUM 3.75 MG TABS 1 tab 2 times daily prn CLORAZEPATE DIPOTASSIUM 89137050477 No Longer Active Tressa Danica Stephens PRILOSEC 20 MG CAP CR 1 PO QD OMEPRAZOLE 31453414186 No Longer Active Tressa Danica Stephens PREMARIN 1.25 MG TABS 1 po daily ESTROGENS CONJUGATED 73778144020 No Longer Active Tressa Danica Stephens LIPITOR 20 MG TABS 1 po daily ATORVASTATIN CALCIUM 47913633457 No Longer Active Tressa Danica Stephens CLONIDINE HCL 0.1 MG TAB 1 po BID CLONIDINE HCL 68299170721 No Longer Active Tressa Danica Stephens ACCURETIC 20-12.5 MG TABS 2 PO QAM QUINAPRIL- HYDROCHLOROTHIAZIDE 55471949997 No Longer Active Tressa Danica Stephens MICARDIS 80 MG TABS 1 PO QPM TELMISARTAN 85731704703 No Longer Active Tressa Danica Stephens GLUCOVANCE 5-500 MG TABS 1 tab po BID GLYBURIDE-METFORMIN 11102655413 No Longer Active Tressa Danica Stephens LEVEMIR 100 UNIT/ML SOLN 40 units at HS INSULIN DETEMIR 20741889630 No Longer Active Tressa Danica Stephens TAMIFLU 75 MG CAPS 1 PO daily for 10 days OSELTAMIVIR PHOSPHATE 97759764606 No Longer Active Matthieu Dawson PREDNISONE 10 MG TABS 1 PO Daily PREDNISONE 82184958486 No Longer Active Tressa Danica Stephens LANTUS 100 UNIT/ML SOLN (INSULIN GLARGINE) PEN Take 32 units SQ QHS LANTUS 100 UNIT/ML SOLN (INSULIN GLARGINE) PEN No Longer Active Tressa Stephens CEFTIN 250 MG TABS 1 PO BID CEFUROXIME AXETIL 97062466519 No Longer Active Tressa Danica LAW'Wero NASAL SPRAY (DEXAMETHASONE, GENTAMICIN, SALINE) 2 puffs each nostril TID for [address] MYERS NASAL SPRAY ( DEXAMETHASONE, GENTAMICIN, SALINE) No Longer Active Tressaino Stephens ATROVENT 0.06 % SOLN 2 puffs each nostril TID prn runny nose and sinus drainage IPRATROPIUM BROMIDE 04916817997 No Longer Active Tressaino Stephens MUCINEX DM 30-600 MG TB12 1 PO Q12hrs DEXTROMETHORPHAN- GUAIFENESIN 53401953440 No Longer Active Tressa Stephens ADVAIR DISKUS 100-50 MCG/DOSE MISC 1 puff BID FLUTICASONE-SALMETEROL 90945587748 No Longer Active Tressaino Stephens ROBITUSSIN A-C 10-100 MG/5ML SYRUP 1 teaspoon PO Q 4-6 hr prn ROBITUSSIN A-C 10-100 MG/5ML SYRUP 30775742499 No Longer Active Tressaino Stephens TESSALON 200 MG CAPS 1 PO TID prn cough BENZONATATE 80892099991 No Longer Active Bhumi Merando ROBITUSSIN A-C 10-100 MG/5ML SYRUP 1 teaspoon PO Q 4-6 hr prn ROBITUSSIN A-C 10-100 MG/5ML SYRUP 86257052871 No Longer Active Bhumi Mermayao DARVOCET-N 100 100-650 MG TABS 1 po q 4 hrs. prn PROPOXYPHENE N-APAP 17239191564 No Longer Active Tressa Danica Stephens SALSALATE 750 MG TABS 1 po QID prn SALSALATE 55047118047 No Longer Active Tressa Danica Stephens DAGOBERTO 180 MG TABS 1 PO QD FEXOFENADINE HCL 60109588090 No Longer Active Tressa Danica LAW'Wero NASAL SPRAY (DEXAMETHASONE, GENTAMICIN, SALINE) 2 puffs each nostril TID DR. MYERS NASAL SPRAY (DEXAMETHASONE, GENTAMICIN, SALINE) No Longer Active Tressa Danica Stephens AMOXICILLIN 500 MG CAP 1 PO TID AMOXICILLIN 17963792009 No Longer Active Tressa Danica Stephens AVANDIA 8 MG TABS 1 po daily ROSIGLITAZONE MALEATE 94156203640 No Longer Active Tressa Danica Stephens DICLOFENAC POTASSIUM 50 MG TABS 1 po TID DICLOFENAC POTASSIUM 48452718132 No Longer Active Tressa Danica Stephens DAGOBERTO 180 MG TABS 1 PO QD FEXOFENADINE HCL 44531676625 No Longer Active Tressa Danica Stephens DRIXORAL 6-120 MG TB12 1 sparingly DEXBROMPHENIRAMINE -PSEUDOEPH 56487984153 No Longer Active Tressa Danica Stephens TOY PLUS EXTRA STRENGTH 500 MG TABS 1 PO daily ASPIRIN BUFFERED 15293915707 No Longer Active Tressa Danica Stephens DETROL LA 4 MG CP24 1 PO daily TOLTERODINE TARTRATE 13402976368 Active Tressa Danica Stephens B-D U/F PEN NEEDLE 31G X 8 MM MISC 1 PO daily Dx: DM Type II INSULIN PEN NEEDLE 93467097705 Active Tressa Danica Stephens OMACOR 1 PO daily OMACOR No Longer Active Tressa Danica Stephens ASCENSIA AUTODISC STRIPS STRP as directed TID Dx: DM Type II GLUCOSE BLOOD 79852444730 Active Narayan Fortune LOVENOX 40 MG/0.4ML SOLN 1 injection daily. Begin Friday05/03/05. ENOXAPARIN SODIUM 10166224641 No Longer Active Tressa Stephens FLUVIRIN INJ done at health dept INFLUENZA VAC TYP A& B SURF ANT 10501061962 No Longer Active Tressa Stephens PNEUMOVAX 23 25 MCG/0.5ML INJ done from health dept PNEUMOCOCCAL VAC POLYVALENT 52863113743 No Longer Active Tressa Stephens MUCINEX 600 MG TB12 1 PO Q12hrs GUAIFENESIN 11414944265 No Longer Active Tressa Stephens HUMALOG MIX 75/25 75-25 % SUSP 26 units in am, 19 units in pm INSULIN LISP & LISP PROT (HUM) 31557267383 No Longer Active Tressa Stephens MULTIVITAMINS TABS 1 po daily MULTIPLE VITAMIN 13934617590 Active Tressa Stephens NEXIUM 40 MG CPDR 1 po daily ESOMEPRAZOLE MAGNESIUM 84625628602 No Longer Active Tressa Stephens NORVASC 10 MG TABS 1 po daily AMLODIPINE BESYLATE 14021051464 Active Tressa Stephens Immunizations Vaccine Administration Date Value Standard Description Influenza vaccine given DONE influenza virus vaccine, unspecified formulation Influenza vaccine given received influenza virus vaccine, unspecified formulation pneumococcal immunization administered Dr. Stephens pneumococcal polysaccharide vaccine, 23 valent Influenza vaccine given Done influenza virus vaccine, unspecified formulation Comvax, combined Hemophilus influenza B and Hepatitis B virus vaccine Done Haemophilus influenzae type b conjugate and Hepatitis B vaccine Vital Signs Date Name Value Unit Range Description blood pressure, diastolic - 8462-4 70 mm[Hg] BP gallardo blood pressure, systolic - 8480-6 140 mm[Hg] BP sys pulse rate E&M - 8867-4 60 /min Heart rate respiratory rate E&M - 9279-1 14 /min Resp rate weight E&M - 3141-9 208 [lb_av] Weight Measured blood pressure, diastolic - 8462-4 65 mm[Hg] BP gallardo blood pressure, systolic - 8480-6 132 mm[Hg] BP sys pulse rate E&M - 8867-4 50 /min Heart rate respiratory rate E&M - 9279-1 14 /min Resp rate temperature E&M 97.7 [degF] Body temperature weight E&M - 3141-9 210 [lb_av] Weight Measured blood pressure, diastolic - 8462-4 84 mm[Hg] BP gallardo blood pressure, systolic - 8480-6 134 mm[Hg] BP sys pulse rate E&M - 8867-4 60 /min Heart rate respiratory rate E&M - 9279-1 13 /min Resp rate temperature E&M 98.6 [degF] Body temperature weight E&M - 3141-9 201 [lb_av] Weight Measured blood pressure, diastolic - 8462-4 94 mm[Hg] BP gallardo blood pressure, systolic - 8480-6 152 mm[Hg] BP sys pulse rate E&M - 8867-4 60 /min Heart rate respiratory rate E&M - 9279-1 14 /min Resp rate weight E&M - 3141-9 198 [lb_av] Weight Measured blood pressure, diastolic - 8462-4 94 mm[Hg] BP gallardo blood pressure, systolic - 8480-6 122 mm[Hg] BP sys pulse rate E&M - 8867-4 72 /min Heart rate respiratory rate E&M - 9279-1 12 /min Resp rate temperature E&M 97.9 [degF] Body temperature weight E&M - 3141-9 210 [lb_av] Weight Measured blood pressure, diastolic - 8462-4 80 mm[Hg] BP gallardo blood pressure, systolic - 8480-6 128 mm[Hg] BP sys pulse rate E&M - 8867-4 60 /min Heart rate respiratory rate E&M - 9279-1 14 /min Resp rate temperature E&M 97.2 [degF] Body temperature weight E&M - 3141-9 210 [lb_av] Weight Measured blood pressure, diastolic - 8462-4 90 mm[Hg] BP gallardo blood pressure, systolic - 8480-6 152 mm[Hg] BP sys pulse rate E&M - 8867-4 66 /min Heart rate respiratory rate E&M - 9279-1 14 /min Resp rate temperature E&M 98.6 [degF] Body temperature weight E&M - 3141-9 211 [lb_av] Weight Measured blood pressure, diastolic - 8462-4 82 mm[Hg] BP gallardo blood pressure, systolic - 8480-6 162 mm[Hg] BP sys pulse rate E&M - 8867-4 70 /min Heart rate respiratory rate E&M - 9279-1 16 /min Resp rate temperature E&M 98.6 [degF] Body temperature blood pressure, diastolic - 8462-4 74 mm[Hg] BP gallardo blood pressure, systolic - 8480-6 118 mm[Hg] BP sys pulse rate E&M - 8867-4 60 /min Heart rate respiratory rate E&M - 9279-1 14 /min Resp rate temperature E&M 98.6 [degF] Body temperature weight E&M - 3141-9 221 [lb_av] Weight Measured blood pressure, diastolic - 8462-4 70 mm[Hg] BP gallardo blood pressure, systolic - 8480-6 140 mm[Hg] BP sys pulse rate E&M - 8867-4 64 /min Heart rate respiratory rate E&M - 9279-1 14 /min Resp rate temperature E&M 98.6 [degF] Body temperature weight E&M - 3141-9 200 [lb_av] Weight Measured Diagnostic Results Date Name Value Unit Range Description Clinical Lists Update: CBC,CMP,Chol,Trig,TSH,Free T4 - Chemistry Estimated Glomerular Filtration Rate (calc) >60 mL/min/1.73m2 albumin, serum 3.5 g/dL sodium, serum 141 mmol/L triglyceride, serum, fasting 193 mg/dL bilirubin, serum, total 0.5 mg/dL alanine aminotransferase (SGPT), serum 19 U/L aspartate aminotransferase (SGOT), serum 17 U/L protein, total, serum 6.7 g/dL potassium, serum 4.1 mmol/L thyroid stimulating hormone, serum 2.37 u[iU]/mL thyroxine, serum, free 1.13 ng/dL creatinine, serum 0.76 mg/dL carbon dioxide, venous blood 25 mmol/L cholesterol, serum 127 mg/dL chloride, serum 106 mmol/L calcium, serum 8.8 mg/dL urea nitrogen, blood 13 mg/dL alkaline phosphatase, serum 80 U/L glucose, plasma fasting 162 mg/dL Clinical Lists Update: CBC,CMP,Chol,Trig,TSH,Free T4 - Hematology platelet count 187 10*3/mm3 hemoglobin, blood 13.4 g/dL hematocrit, blood 41.6 % red blood cell distribution width 14.9 % mean corpuscular volume, RBC 92.7 fL leukocyte count, blood 6.0 10*3/mm3 erythrocyte (RBC) count 4.49 10*6/mm3 Clinical Lists Update: CBC,CMP,ESR - Chemistry protein, total, serum 0.6 g/dL aspartate aminotransferase (SGOT), serum 19 U/L albumin, serum 3.4 g/dL alkaline phosphatase, serum 82 U/L urea nitrogen, blood 16 mg/dL calcium, serum 8.8 mg/dL chloride, serum 100 mmol/L carbon dioxide, venous blood 29 mmol/L creatinine, serum 0.79 mg/dL alanine aminotransferase (SGPT), serum 16 U/L bilirubin, serum, total 6.8 mg/dL sodium, serum 138 mmol/L glucose, plasma fasting 291 mg/dL Estimated Glomerular Filtration Rate (calc) >60 mL/min/1.73m2 potassium, serum 4.2 mmol/L Clinical Lists Update: CBC,CMP,ESR - Hematology mean corpuscular volume, RBC 92.4 fL red blood cell distribution width 14.4 % erythrocyte sedimentation rate 10 mm/h hemoglobin, blood 13.8 g/dL platelet count 157 10*3/mm3 erythrocyte (RBC) count 4.61 10*6/mm3 leukocyte count, blood 5.6 10*3/mm3 hematocrit, blood 42.6 % Clinical Lists Update: CBC,CMP,PT,INR - Chemistry albumin, serum 3.7 g/dL alkaline phosphatase, serum 149 U/L urea nitrogen, blood 18 mg/dL calcium, serum 9.4 mg/dL chloride, serum 99 mmol/L carbon dioxide, venous blood 32 mmol/L creatinine, serum 1.1 mg/dL potassium, serum 3.7 mmol/L protein, total, serum 8.0 g/dL aspartate aminotransferase (SGOT), serum 14 U/L alanine aminotransferase (SGPT), serum 38 U/L bilirubin, serum, total 0.3 mg/dL sodium, serum 136 mmol/L Estimated Glomerular Filtration Rate (calc) 48 mL/min/1.73m2 glucose, plasma fasting 294 mg/dL Clinical Lists Update: CBC,CMP,PT,INR - Coagulation PTT patient 25 s international normalized ratio (INR) 1.0 prothrombin time (patient) 12.7 s Clinical Lists Update: CBC,CMP,PT,INR - Hematology leukocyte count, blood 6.9 10*3/mm3 mean corpuscular volume, RBC 91 fL red blood cell distribution width 14.6 % erythrocyte (RBC) count 4.74 10*6/mm3 hemoglobin, blood 14.0 g/dL hematocrit, blood 43 % platelet count 168 10*3/mm3 Clinical Lists Update: CMP,CHOL,TRIG,TSH,FREE T4,HGA1C - Chemistry Estimated Glomerular Filtration Rate (calc) >60 mL/min/1.73m2 glucose, plasma fasting 172 mg/dL sodium, serum 138 mmol/L triglyceride, serum, fasting 202 mg/dL bilirubin, serum, total 0.3 mg/dL alanine aminotransferase (SGPT), serum 17 U/L aspartate aminotransferase (SGOT), serum 23 U/L protein, total, serum 7.0 g/dL potassium, serum 3.8 mmol/L thyroid stimulating hormone, serum 6.44 u[iU]/mL hemoglobin A1C, blood, as % of total hemoglobin 9.1 % thyroxine, serum, free 0.85 ng/dL creatinine, serum 0.71 mg/dL carbon dioxide, venous blood 29 mmol/L cholesterol, serum 146 mg/dL chloride, serum 101 mmol/L calcium, serum 8.9 mg/dL urea nitrogen, blood 13 mg/dL alkaline phosphatase, serum 88 U/L albumin, serum 3.2 g/dL Estimated Glomerular Filtration Rate (calc) >60 mL/min/1.73m2 albumin, serum 3.1 g/dL sodium, serum 139 mmol/L triglyceride, serum, fasting 152 mg/dL bilirubin, serum, total 0.6 mg/dL alanine aminotransferase (SGPT), serum 15 U/L aspartate aminotransferase (SGOT), serum 16 U/L protein, total, serum 6.6 g/dL potassium, serum 4.2 mmol/L thyroid stimulating hormone, serum 8.58 u[iU]/mL hemoglobin A1C, blood, as % of total hemoglobin 9.3 % thyroxine, serum, free 1.08 ng/dL creatinine, serum 0.74 mg/dL carbon dioxide, venous blood 30 mmol/L cholesterol, serum 111 mg/dL chloride, serum 104 mmol/L calcium, serum 8.4 mg/dL urea nitrogen, blood 9 mg/dL alkaline phosphatase, serum 69 U/L glucose, plasma fasting 197 mg/dL Clinical Lists Update: CMP,FLP,HgA1c,TSH,Free T4,Microalbumin - Chemistry glucose, plasma fasting 257 mg/dL anion gap, serum 7 albumin, serum 3.3 g/dL sodium, serum 137 mmol/L triglyceride, serum, fasting 211 mg/dL bilirubin, serum, total 0.3 mg/dL alanine aminotransferase (SGPT), serum 17 U/L aspartate aminotransferase (SGOT), serum 22 U/L protein, total, serum 6.4 g/dL potassium, serum 4.0 mmol/L LDL cholesterol, serum 33 mg/dL thyroid stimulating hormone, serum 3.62 u[iU]/mL hemoglobin A1C, blood, as % of total hemoglobin 9.4 % HDL cholesterol, serum 62 mg/dL thyroxine, serum, free 1.11 ng/dL creatinine, serum 0.83 mg/dL carbon dioxide, venous blood 29 mmol/L cholesterol, serum 137 mg/dL chloride, serum 101 mmol/L calcium, serum 8.7 mg/dL urea nitrogen, blood 13 mg/dL alkaline phosphatase, serum 76 U/L Clinical Lists Update: CMP,FLP,HgA1c,TSH,Free T4,Microalbumin - Urinalysis microalbumin, urine, semiquantitative 1.5 mg/dL Clinical Lists Update: HgA1c - Chemistry hemoglobin A1C, blood, as % of total hemoglobin 8.6 % Encounters Code Encounter Date Provider Facility CPT-41747 Ofc Vst, Est Level III 15:18:13 CDT Tressa Stephens DO, FACP CPT-16997 Ofc Vst, Est Level IV 17:19:02 [employer] Tressa Stephens DO, FACP CPT-88749 Ofc Vst, Est Level IV 16:15:30 [employer] Tressa Stephens DO, FACP CPT-35628 Ofc Vst, Est Level IV 17:12:11 [employer] Tressa Stephens DO, FACP CPT-60017 Ofc Vst, Est Level IV 16:52:17 [employer] Tressaino Conteh Stephens, DO, FACP CPT-82663 Ofc Vst, Est Level III 16:30:23 CDT Tressa Danica Conteh Stephens, DO, FACP CPT-09368 Ofc Vst, Est Level III 17:01:51 CDT Tressa Danica Conteh Stephens, DO, FACP CPT-78780 Ofc Vst, Est Level IV 17:35:57 CDT Tressa Danica Conteh Stephens, DO, FACP CPT-83770 Ofc Vst, Est Level III 12:47:22 CDT Tressa Danica Conteh Stephens, DO, FACP CPT-94146 Ofc Vst, Est Level IV 13:16:37 CDT Tressa Danica Conteh Stephens, DO, FACP CPT-98784 Ofc Vst, Est Level III 21:22:47 CDT Tressa Danica Conteh Stephens, DO, FACP CPT-98355 Ofc Vst, Est Level III 20:42:44 [employer] Tressa Conteh Stephens, DO, FACP CPT-20788 Ofc Vst, Est Level III 13:42:40 [employer] Tressa Danica Conteh Stephens, DO, FACP CPT-87193 Ofc Vst, Est Level IV 12:48:28 [employer] Tressa Danica Conteh Stephens, DO, FACP CPT-79662 Ofc Vst, Est Level III 15:04:48 CDT Tressa Danica Bustillos S Stephens, DO, FACP CPT-01641 Ofc Vst, Est Level IV 17:19:18 CDT Tressa Danica Conteh Kat, DO, FACP CPT-08547 Ofc Vst, Est Level III 09:04:25 CDT Tressa Conteh Stephens, DO, FACP CPT-91164 Ofc Vst, Est Level III 16:10:44 CDT Tressa Danica Conteh Stephens, DO, FACP CPT-78538 Ofc Vst, Est Level IV 20:58:16 [employer] Tressa Conteh Stephens, DO, FACP CPT-68130 Ofc Vst, Est Level IV 10:28:49 [employer] Tressa Conteh Stephens, DO, FACP CPT-90159 Ofc Vst, Est Level III 14:30:37 [employer] Tressa Conteh Stephens, DO, FACP CPT-29588 Ofc Vst, Est Level IV 11:15:48 CDT Tressaino Conteh Stephens, DO, FACP CPT-95470 Ofc Vst, Est Level IV 11:15:33 CDT Tressaino Conteh Stephens, DO, FACP CPT-14767 Ofc Vst, Est Level IV 11:30:32 CDT Tressa Danica Conteh Stephens, DO, FACP CPT-46201 Ofc Vst, Est Level IV 11:44:55 CDT Tressa Conteh Stephens, DO, FACP CPT-36514 Ofc Vst, Est Level IV 14:27:05 CDT Tressa Danica Conteh Stephens, DO, FACP CPT-94838 Ofc Vst, Est Level V 14:28:06 [employer] Tressa Bustillos S Stephens, DO, FACP CPT-54172 Ofc Vst, Est Level IV 12:03:43 [employer] Tressa Conteh Stephens, DO, FACP CPT-84500 Ofc Vst, Est Level V 15:06:48 [employer] Tressa Conteh Stephens, DO, FACP CPT-51717 Ofc Vst, Est Level III 15:36:23 [employer] Tressa Conteh Kat, DO, FACP CPT-86532 Ofc Vst, Est Level V 15:39:00 CDT Tressa Danica Conteh Kat, DO, FACP CPT-96514 Ofc Vst, Est Level V 14:02:35 CDT Tressa Danica Conteh Kat, DO, FACP CPT-69849 Ofc Vst, Est Level III 15:00:21 CDT Tressa Danica Conteh Kat, DO, FACP CPT-75042 Ofc Vst, Est Level IV 13:45:16 CDT Tressaino Conteh Kat, DO, FACP CPT-85977 Ofc Vst, Est Level IV 14:31:48 CDT Tressa Danica Conteh Kat, DO, FACP CPT-43121 Ofc Vst, Est Level IV 11:14:51 CDT Tressa Danica Conteh Kat, DO, FACP CPT-86734 Ofc Vst, Est Level IV 14:36:19 CDT Tressa Conteh Kat, DO, FACP CPT-55051 Ofc Vst, Est Level IV 15:56:12 [employer] Tressaino Conteh Kat, DO, FACP CPT-58292 Ofc Vst, Est Level IV 11:37:02 CDT Tressa Danica Conteh Kat, DO, FACP CPT-93009 Ofc Vst, Est Level III 11:05:27 CDT Tressa Danica Conteh Kat, DO, FACP CPT-84022 Ofc Vst, Est Level IV 12:12:37 CDT Tressa Danica Conteh Kat, DO, FACP CPT-28716 Ofc Vst, Est Level IV 11:55:51 CDT Tressaino Conteh Stephens, DO, FACP CPT-01336 Ofc Vst, Est Level V 13:46:43 CDT Tressa Danica Conteh Stephens, DO, FACP CPT-70767 Ofc Vst, Est Level IV 14:23:36 CDT Tressa Danica Conteh Stephens, DO, FACP CPT-24923 Ofc Vst, Est Level III 14:59:12 CDT Tressa Danica Conteh Stephens, DO, FACP CPT-80402 Ofc Vst, Est Level IV 16:01:19 CDT Tressa Conteh Stephens, DO, FACP CPT-69027 Ofc Vst, Est Level IV 15:21:33 [employer] Tressa Conteh Kat, DO, FACP CPT-69158 Ofc Vst, Est Level IV 10:21:01 [employer] Tressa Conteh Stephens, DO, FACP CPT-67964 Ofc Vst, Est Level V 12:53:03 [employer] Tressa Conteh Stephens, DO, FACP CPT-37155 Ofc Vst, Est Level IV 10:54:43 CDT Tressaino Conteh Stephens, DO, FACP CPT-78221 Ofc Vst, Est Level V 10:18:33 CDT Tressaino Conteh Stephens, DO, FACP CPT-18022 Ofc Vst, Est Level V 14:14:31 CDT Tressa Danica Conteh Stephens, DO, FACP CPT-33692 Ofc Vst, Est Level IV 12:25:33 CDT Tressaino Conteh Kat, DO, FACP CPT-58135 Ofc Vst, Est Level IV 15:27:17 CDT Tressa Danica Conteh Stephens, DO, FACP CPT-09522 Ofc Vst, Est Level IV 14:47:24 CDT Tressa Danica Conteh Stephens, DO, FACP CPT-17414 Ofc Vst, Est Level V 15:19:25 CDT Tressa Danica [facility] CPT-50269 Ofc Vst, Est Level V 11:41:37 CDT Tressa Danica Conteh Stephens, DO, FACP CPT-53994 Ofc Vst, Est Level V 11:12:22 CDT Tressa Danica Conteh Stephens, DO, FACP CPT-91383 Ofc Vst, Est Level IV 14:51:16 [employer] Tressa Danica Conteh Stephens, DO, FACP CPT-06313 Ofc Vst, Est Level IV 11:31:20 [employer] Tressa Danica Conteh Stephens, DO, FACP CPT-48473 Ofc Vst, Est Level IV 10:35:51 [employer] Tressa Danica Conteh Stephens, DO, FACP CPT-56124 Ofc Vst, Est Level IV 11:46:27 [employer] Tressa Danica Conteh Stephens, DO, FACP CPT-44467 Ofc Vst, Est Level IV 09:34:16 [employer] Tressa Danica Conteh Stephens, DO, FACP CPT-27301 Ofc Vst, Est Level V 11:34:06 [employer] Tressa Danica Nicki S Stephens, DO, FACP CPT-87345 Ofc Vst, Est Level IV 13:57:23 CDT Tressa Danica Bustillos S Stephens, DO, FACP CPT-42418 Ofc Vst, Est Level IV 12:34:42 CDT Tressa Danica Conteh Stephens, DO, FACP CPT-20351 Ofc Vst, Est Level IV 10:18:20 CDT Tressa Danica Kat Tressa Conteh Kat, DO, FACP CPT-40227 Ofc Vst, Est Level IV 10:10:02 [employer] Tressa Mishra Kat Tressa Wero Kat, DO, FACP CPT-58054 Ofc Vst, Est Level IV 15:36:41 [employer] Tressa Jorgensenner Tressa Conteh Kat, DO, FACP CPT-14746 Ofc Vst, Est Level III 10:41:26 [employer] Tressa Mishra Kat Tressa Wero Kat, DO, FACP CPT-97239 Ofc Vst, Est Level IV 13:29:32 CDT Tressa Danica Kat Bustillos Wero Kat, DO, FACP CPT-99507 Ofc Vst, Est Level IV 10:30:12 CDT Tressaino Stephens [facility] [place] CPT-43357 Ofc Vst, Est Level IV 11:11:37 [employer] Tressa Stephens [facility] [place] CPT-05266 Ofc Vst, Est Level IV 11:06:40 [employer] Tressa Stephens [facility] [place] CPT-15593 Ofc Vst, Est Level IV 12:01:24 CDT Tressa Stephens [facility] [place] CPT-75774 Ofc Vst, Est Level IV 11:43:30 CDT Tressa Stephens [facility] [place] CPT-21275 Ofc Vst, Est Level IV 14:22:04 CDT Tressa Stephens [facility] [place] CPT-63575 Ofc Vst, Est Level IV 13:59:46 CDT Tressa Stephens [facility] [place] CPT-75851 Ofc Vst, Est Level IV 14:02:19 [employer] Tressa Stephens [facility] [place] CPT-87337 Ofc Vst, Est Level IV 15:07:12 [employer] Tressa Danicamahsa Stephens [facility] [place] CPT-66053 Ofc Vst, Est Level IV 15:11:06 [employer] Tressa Davisanndre JorgensenStephens [facility] [place] CPT-46703 Ofc Vst, Est Level IV 15:30:27 [employer] Tressa Davisanndre JorgensenStephens [facility] [place] CPT-70632 Ofc Vst, Est Level IV 11:04:18 [employer] Tressa Davisanndre JorgensenStephens [facility] [place] CPT-70998 Ofc Vst, Est Level IV 13:50:55 [employer] Tressa Davisanne Stephens [facility] [place] CPT-69444 Ofc Vst, Est Level IV 16:27:37 CDT Tressa Danica Jorgensenner [facility] [place] CPT-46316 Ofc Vst, Est Level IV 14:19:58 CDT Tressa Danica Stephens [facility] [place] CPT-71922 Ofc Vst, New Level IV 14:53:27 CDT Tressa Davisanndre JorgensenStephens [facility] [place] Procedures Code Procedure Name Date Entry Date Standard Description CPT-G0439 Medicare Annual Wellness Visit 17:05:42 [employer] CPT-G8446 E-Prescribing not done due to controlled substance 21:22 :47 CDT CPT-G8446 E-Prescribing not done due to controlled substance 20:42 :44 [employer] CPT-G8445 E-Prescribing Not sent due to no medication given 13:42: 40 [employer] CPT-G8445 E-Prescribing Not sent due to no medication given 12:48: 28 [employer] CPT-G8445 E-Prescribing Not sent due to no medication given 21:29: 51 [employer] CPT-G0439 Medicare Annual Wellness Visit 21:29:51 [employer] CPT-G8443 E-Prescribing Medication Sent 15:04:48 CDT CPT-G8446 E-Prescribing not done due to controlled substance 17:19 :18 CDT CPT-G8446 E-Prescribing not done due to controlled substance 09:04 :25 CDT CPT-G8445 E-Prescribing Not sent due to no medication given 16:10: 44 CDT CPT-G8445 E-Prescribing Not sent due to no medication given 20:58: 16 [employer] CPT-G8446 E-Prescribing not done due to controlled substance 10:28 :49 [employer] CPT-G8443 E-Prescribing Medication Sent 14:30:37 [employer] CPT-G8446 E-Prescribing not done due to controlled substance 15:30 :57 CDT CPT-G0438 Medicare Annual Wellness Visit Initial 15:30:57 CDT CPT-32785 Injection, Pneumovax 11:37:02 CDT CPT-8445 E-Prescribing Not sent due to no medication given 15:19: 25 CDT CPT-8445 E-Prescribing Not sent due to no medication given 11:41: 37 CDT CPT-83751 Influenza Vaccine 10:38:35 [employer] CPT-G0008 Administration Influenza Vaccine 10:38:35 [employer] CPT-71483 Influenza Vaccine 10:03:07 CDT CPT-G0008 Administration Influenza Vaccine 10:03:07 CDT
--- OUTSIDE RECORDS SUMMARY | 2018-04-13 06:39 | XMS REPORT | Clinical Summary ---
Author Author User, [employer] Organization [facility] [place] Address Unknown Phone Unavailable Allergies, Adverse Reactions, [...] Pain in limb DIARRHEA, ACUTE 787.91 Resolved Terssa Stephens Diarrhea DISORDER, VOLUME DEPLETION, HYPOVOLEMIA 276.52 [...] unspecified sites KNEE PAIN 719.46 Resolved Tressa Stephens Pain in joint involving lower leg PETECHIAE 782.7 Resolved Tressa Stephens Spontaneous ecchymoses ABDOMINAL PAIN, EPIGASTRIC 789.06 Active Tressa Stephens Abdominal pain, epigastric POLYMYALGIA RHEUMATICA 725 Resolved Tressa Stephnes Polymyalgia rheumatica KNEE PAIN 719.46 Active Tressa Stephens Pain in joint involving lower leg 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 DIARRHEA, RECURRENT 787.91 Active Tressa Stephens Diarrhea Medication List Medication Instructions Start Date Stop Date Generic Name NDC Status Provider Patient Instruction POTASSIUM CHLORIDE ER 20 MEQ CR-TABS 1 PO DAILY POTASSIUM CHLORIDE 38463327537 Active Carlyn Marks HYDROXYZINE HCL 25 MG TABS 1 PO TID prn HYDROXYZINE HCL 40608219707 No Longer Active Tressa Stephens VALIUM 2 MG TAB 1-2 PO before MRI procedure DIAZEPAM 15370054339 No Longer Active Tressa Stephens OXYCONTIN 20 MG [id number] 1 PO Q 12hrs scheduled OXYCODONE HCL No Longer Active Tressa Stephens HUMALOG KWIKPEN 100 UNIT/ML SOPN 12 units before each meal INSULIN LISPRO (HUMAN) 20845072544 Active Tressa Danica Stephens PREDNISONE 20 MG TAB 3 PO at one time daily PREDNISONE 42814429303 No Longer Active Tressa Danica Stephens ZOSTAVAX 57104 UNT/0.65ML SOLR 1 injection once to prevent Shingles ZOSTER VACCINE LIVE 26697247138 No Longer Active Tressa Danica Stephens VOLTAREN 1 % GEL Apply to affected area twice daily prn pain. DICLOFENAC SODIUM 88029054528 No Longer Active Tressaino Stephens ASTEPRO 0.15 % SOLN 1 puff each nostril TID AZELASTINE HCL 52704741577 No Longer Active Tressa Danica Stephens CELEXA 20 MG TABS 1 PO daily CITALOPRAM HYDROBROMIDE 61150313098 No Longer Active Tressa Danica Stephens KEFLEX 500 MG CAP 1 PO TID for 7 days CEPHALEXIN 98918304269 No Longer Active Carlyn Marks SYNTHROID 150 MCG TABS 1 PO Daily LEVOTHYROXINE SODIUM 75389750001 Active Carlyn Marks NEURONTIN 300 MG CAP 1-2 PO BID GABAPENTIN 97978621675 Active Tressa Danica ACEVEDO ODT 8 MG TBDP 1 po q 6hrs prn nausea ONDANSETRON 67872568838 No Longer Active Tressa Danica Stephens CARAFATE 1 GM TABS 1 PO 30 minutes before meals and at bedtime SUCRALFATE 49737317681 No Longer Active Tressa Danica Stephens SYNTHROID 150 MCG TABS 1 PO every other day alternating with 137mcg LEVOTHYROXINE SODIUM 87667261486 No Longer Active Tressa Danica Stephens INDOMETHACIN 50 MG CAPS 1 PO TID for 5 days INDOMETHACIN 70478798566 No Longer Active Tressa Stephens PREDNISONE 5 MG TABS 2 Po daily for 2 weeks and then change to 1 PO daily for 2 weeks. PREDNISONE 73261346645 No Longer Active Tressa Stephens XANAX 0.25 MG TABS 1-2 PO Q6hrs prn ALPRAZOLAM 45883688350 Active Tressa Stephens LASIX 20 MG TAB 1 PO BID prn swelling FUROSEMIDE 96784097104 Active Tressaino Stephens PREDNISONE 20 MG TAB 1 PO daily PREDNISONE 50364380086 No Longer Active Tressa Stephens FLUDROCORTISONE ACETATE 0.1 MG TABS 1 PO daily FLUDROCORTISONE ACETATE 27640202547 No Longer Active Tressa Stephens ACCURETIC 20-12.5 MG TABS 1 PO daily QUINAPRIL- HYDROCHLOROTHIAZIDE 19447864298 No Longer Active Tressa Stephens SYNTHROID 150 MCG TABS 1 PO alternating with 137 mcg every other day LEVOTHYROXINE SODIUM 99580014269 No Longer Active Tressa Stephens OXYCODONE HCL 10 MG TABS 2 PO Q4hrs prn OXYCODONE HCL 28159489316 Active Carlyn Marks OXYCONTIN 20 MG [id number] 1 PO Q12hrs scheduled OXYCODONE HCL 68786327355 No Longer Active Tressa Stephens COREG 12.5 MG TABS 1 PO BID for Blood pressure (on hold 04/30) CARVEDILOL 19846880782 No Longer Active Tressa Stephens DAGOBERTO 180 MG TABS 1 PO QD FEXOFENADINE HCL Active Tressaino Stephens ZOCOR 20 MG TAB 1 PO daily SIMVASTATIN 40333549228 Active Tressa Stephens MIRALAX POWD 1 scoop in 4oz of water PO BID POLYETHYLENE GLYCOL 3350 85048521510 Active Susanna Bruno DARVOCET-N 100 100-650 MG TAB 1 PO Q6hrs prn pain PROPOXYPHENE N-APAP 11813803663 No Longer Active Tressa Danica LAW'Wero NASAL SPRAY (DEXAMETHASONE, GENTAMICIN, SALINE) 2 puffs each nostril TID x [address] MYERS NASAL SPRAY ( DEXAMETHASONE, GENTAMICIN, SALINE) No Longer Active Tressa Danica Stephens SINEMET 25-100 MG TABS 1 po TID CARBIDOPA-LEVODOPA 28834357164 Active Tressa Danica Stephens BENADRYL 25 MG CAP 1 PO Q6hrs prn itching DIPHENHYDRAMINE HCL 75608993246 No Longer Active Tressa Danica Stephens NEXIUM 40 MG CPDR 1 PO daily ESOMEPRAZOLE MAGNESIUM 48155450999 Active Tressa Danica Stephens K-PHOS TABS 1 po BID POTASSIUM PHOSPHATE MONOBASIC TABS 45427113297 No Longer Active Tressa Danica Stephens MICARDIS 80 MG TABS 1 po daily TELMISARTAN 05809773318 Active Tressa Danica Stephens MULTIVITAMINS TABS 1 PO QD MULTIPLE VITAMIN 87533905168 No Longer Active Tressaino Stephens LANTUS SOLOSTAR 100 UNIT/ML SOLN 40 units SQ QHS INSULIN GLARGINE 05038435918 Active Tressa Danica Stephens PATANOL 0.1 % SOLN 2 drops in each eye BID prn OLOPATADINE HCL 24148595620 No Longer Active Tressa Danica Stephens FISH OIL 1000 MG CAPS 2 tabs po TID OMEGA-3 FATTY ACIDS 24339303616 No Longer Active Tressa Danica Stephens PREMARIN 1.25 MG TAB 1 PO daily ESTROGENS CONJUGATED 41483406862 Active Tressa Danica Stephens PEN NEEDLES 1/2" 29G X 12MM MISC as directed on the Lantus Pen INSULIN PEN NEEDLE 58716687153 No Longer Active Tressa Danica Stephens BD INSULIN SYRINGE ULTRAFINE 29G X 1/2" 1 ML MISC as directed DX: Diabetes INSULIN SYRINGE-NEEDLE U-100 82898901129 No Longer Active Tressa Danica Stephens LOVAZA 1 GM CAPS 2 po BID [id number] ETHYL ESTERS 58909166596 Active Tressa Danica Stephens PREDNISONE 10 MG TAB 1 PO daily PREDNISONE 50143611453 No Longer Active Tressa Danica Stephens ALPRAZOLAM 0.25 MG TABS 1/2 to 1 tab po q 8 hrs prn anxiety 07/24 ALPRAZOLAM 17020873107 No Longer Active Tressa Danica Stephens TRANXENE-T 7.5 MG TABS 1 po BID prn CLORAZEPATE DIPOTASSIUM 81121611043 Active Tressa Danica Stephens ZESTRIL 20 MG TABS 1 po daily LISINOPRIL 05324629456 No Longer Active Tressa Danica Stephens MUCINEX 600 MG BK43G-IFT 1 po TID GUAIFENESIN 91722646560 Active Tressa Danica Stephens DARVOCET-N 100 100-650 MG TAB 1 PO Q6hrs prn pain PROPOXYPHENE N-APAP 00587072587 No Longer Active Tressa Danica Stephens METANX 2.8-25-2 MG TABS 1 PO daily [id number] 58042236774 No Longer Active Tressa Danica Stephens SINEMET 25-100 MG TABS 2 PO BID prn CARBIDOPA-LEVODOPA 24183589633 No Longer Active Tressa Danica Stephens LOVAZA 1 GM CAPS 2 po BID OXRHP-5-[id number] ETHYL ESTERS 78407117746 No Longer Active Tressa Danica Stephens LORTAB 10 TABS 1 po q 4 hrs prn pain HYDROCODONE- ACETAMINOPHEN TABS 43755209585 No Longer Active Tressa Danica Stephens CALCIUM 600 + D 600-200 MG-UNIT TABS 1 po daily CALCIUM CARBONATE-VITAMIN D 11531408669 Active Tressa Danica Stephens VITAMIN C 500 MG TABS 1 po BID ASCORBIC ACID 59003002892 Active Tressa Danica Stephens CLORAZEPATE DIPOTASSIUM 3.75 MG TABS 1 tab 2 times daily prn CLORAZEPATE DIPOTASSIUM 19956769144 No Longer Active Tressa Danica Stephens PRILOSEC 20 MG CAP CR 1 PO QD OMEPRAZOLE 35625310668 No Longer Active Tressa Danica Stephens PREMARIN 1.25 MG TABS 1 po daily ESTROGENS CONJUGATED 97913479441 No Longer Active Tressa Danica Stephens LIPITOR 20 MG TABS 1 po daily ATORVASTATIN CALCIUM 57000304797 No Longer Active Tressa Danica Stephens CLONIDINE HCL 0.1 MG TAB 1 po BID CLONIDINE HCL 19118933113 No Longer Active Tressa Danica Stephens ACCURETIC 20-12.5 MG TABS 2 PO QAM QUINAPRIL- HYDROCHLOROTHIAZIDE 07485279800 No Longer Active Tressa Danica Stephens MICARDIS 80 MG TABS 1 PO QPM TELMISARTAN 20903670639 No Longer Active Tressa Danica Stephens GLUCOVANCE 5-500 MG TABS 1 tab po BID GLYBURIDE-METFORMIN 81623809703 No Longer Active Tressa Danica Stephens LEVEMIR 100 UNIT/ML SOLN 40 units at HS INSULIN DETEMIR 65821318793 No Longer Active Tressa Danica Stephens TAMIFLU 75 MG CAPS 1 PO daily for 10 days OSELTAMIVIR PHOSPHATE 28576551512 No Longer Active Matthieu Sonya PREDNISONE 10 MG TABS 1 PO Daily PREDNISONE 06329659745 No Longer Active Tressa Danica Stephens LANTUS 100 UNIT/ML SOLN (INSULIN GLARGINE) PEN Take 32 units SQ QHS LANTUS 100 UNIT/ML SOLN (INSULIN GLARGINE) PEN No Longer Active Tressa Stephens CEFTIN 250 MG TABS 1 PO BID CEFUROXIME AXETIL 80314824641 No Longer Active Tressaino LAW'Wero NASAL SPRAY (DEXAMETHASONE, GENTAMICIN, SALINE) 2 puffs each nostril TID for [address] MYERS NASAL SPRAY ( DEXAMETHASONE, GENTAMICIN, SALINE) No Longer Active Tressaino Stephens ATROVENT 0.06 % SOLN 2 puffs each nostril TID prn runny nose and sinus drainage IPRATROPIUM BROMIDE 58274700238 No Longer Active Tressaino Stephens MUCINEX DM 30-600 MG TB12 1 PO Q12hrs DEXTROMETHORPHAN- GUAIFENESIN 03196055725 No Longer Active Tressa Stephens ADVAIR DISKUS 100-50 MCG/DOSE MISC 1 puff BID FLUTICASONE-SALMETEROL 83448922871 No Longer Active Tressaino Stephens ROBITUSSIN A-C 10-100 MG/5ML SYRUP 1 teaspoon PO Q 4-6 hr prn ROBITUSSIN A-C 10-100 MG/5ML SYRUP 73805557103 No Longer Active Tressaino Stephens TESSALON 200 MG CAPS 1 PO TID prn cough BENZONATATE 07222127479 No Longer Active Bhumi Merando ROBITUSSIN A-C 10-100 MG/5ML SYRUP 1 teaspoon PO Q 4-6 hr prn ROBITUSSIN A-C 10-100 MG/5ML SYRUP 07600132241 No Longer Active Bhumi Mermayao DARVOCET-N 100 100-650 MG TABS 1 po q 4 hrs. prn PROPOXYPHENE N-APAP 26909761689 No Longer Active Tressa Danica Stephens SALSALATE 750 MG TABS 1 po QID prn SALSALATE 21751649969 No Longer Active Tressa Danica Stephens DAGOBERTO 180 MG TABS 1 PO QD FEXOFENADINE HCL 95502413900 No Longer Active Tressa Danica LAW'S NASAL SPRAY (DEXAMETHASONE, GENTAMICIN, SALINE) 2 puffs each nostril TID DR. MYERS NASAL SPRAY (DEXAMETHASONE, GENTAMICIN, SALINE) No Longer Active Tressa Danica Stephens AMOXICILLIN 500 MG CAP 1 PO TID AMOXICILLIN 69520773041 No Longer Active Tressa Danica Stephens AVANDIA 8 MG TABS 1 po daily ROSIGLITAZONE MALEATE 80739231065 No Longer Active Tressa Danica Stephens DICLOFENAC POTASSIUM 50 MG TABS 1 po TID DICLOFENAC POTASSIUM 11424612910 No Longer Active Tressa Danica Stephens DAGOBERTO 180 MG TABS 1 PO QD FEXOFENADINE HCL 75016929969 No Longer Active Tressa Danica Stephens DRIXORAL 6-120 MG TB12 1 sparingly DEXBROMPHENIRAMINE -PSEUDOEPH 89070123052 No Longer Active Tressa Danica Stephens TOY PLUS EXTRA STRENGTH 500 MG TABS 1 PO daily ASPIRIN BUFFERED 56425679995 No Longer Active Tressa Danica Stephens DETROL LA 4 MG CP24 1 PO daily TOLTERODINE TARTRATE 04096161177 Active Tressa Danica Stephens B-Aba U/F PEN NEEDLE 31G X 8 MM MISC 1 PO daily Dx: DM Type II INSULIN PEN NEEDLE 43747719934 Active Tressa Danica Stephens OMACOR 1 PO daily OMACOR No Longer Active Tressa Danica Stephens ASCENSIA AUTODISC STRIPS STRP as directed TID Dx: DM Type II GLUCOSE BLOOD 99165691073 Active Narayan Fortune LOVENOX 40 MG/0.4ML SOLN 1 injection daily. Begin Friday05/03/05. ENOXAPARIN SODIUM 91703954948 No Longer Active Tressa Stephens FLUVIRIN INJ done at health dept INFLUENZA VAC TYP A& B SURF ANT 45318875692 No Longer Active Tressa Stephens PNEUMOVAX 23 25 MCG/0.5ML INJ done from health dept PNEUMOCOCCAL VAC POLYVALENT 81871285219 No Longer Active Tressa Stephens MUCINEX 600 MG TB12 1 PO Q12hrs GUAIFENESIN 53264997757 No Longer Active Tressa Stephens HUMALOG MIX 75/25 75-25 % SUSP 26 units in am, 19 units in pm INSULIN LISP & LISP PROT (HUM) 32982387973 No Longer Active Tressa Stephens MULTIVITAMINS TABS 1 po daily MULTIPLE VITAMIN 39200694813 Active Tressa Stephens NEXIUM 40 MG CPDR 1 po daily ESOMEPRAZOLE MAGNESIUM 33189571903 No Longer Active Tressa Stephens NORVASC 10 MG TABS 1 po daily AMLODIPINE BESYLATE 50173710384 Active Tressa Stephens Immunizations Vaccine Administration Date [...] Range Description blood pressure, diastolic - 8462-4 65 mm[Hg] [...] E&M - 3141-9 200 [lb_av] Weight Measured blood pressure, diastolic - 8462-4 68 mm[Hg] BP gallardo blood pressure, systolic - 8480-6 140 mm[Hg] BP sys pulse rate E&M - 8867-4 50 /min Heart rate respiratory rate E&M - 9279-1 14 /min Resp rate weight E&M - 3141-9 204 [lb_av] Weight Measured Diagnostic Results Date Name Value Unit Range Description Clinical Lists Update: CBC,CMP,Chol,Trig,TSH,Free T4 - Chemistry potassium, serum 4.1 mmol/L aspartate aminotransferase (SGOT), serum 17 U/L thyroid stimulating hormone, serum 2.37 u[iU]/mL alkaline phosphatase, serum 80 U/L albumin, serum 3.5 g/dL urea nitrogen, blood 13 mg/dL calcium, serum 8.8 mg/dL Estimated Glomerular Filtration Rate (calc) >60 mL/min/1.73m2 chloride, serum 106 mmol/L glucose, plasma fasting 162 mg/dL cholesterol, serum 127 mg/dL sodium, serum 141 mmol/L carbon dioxide, venous blood 25 mmol/L triglyceride, serum, fasting 193 mg/dL bilirubin, serum, total 0.5 mg/dL creatinine, serum 0.76 mg/dL alanine aminotransferase (SGPT), serum 19 U/L thyroxine, serum, free 1.13 ng/dL protein, total, serum 6.7 g/dL Clinical Lists Update: CBC,CMP,Chol,Trig,TSH,Free T4 - Hematology hematocrit, blood 41.6 % hemoglobin, blood 13.4 g/dL platelet count 187 10*3/mm3 erythrocyte (RBC) count 4.49 10*6/mm3 leukocyte count, blood 6.0 10*3/mm3 mean corpuscular volume, RBC 92.7 fL red blood cell distribution width 14.9 % Clinical Lists Update: CBC,CMP,ESR - Chemistry bilirubin, serum, total 6.8 mg/dL protein, total, serum 0.6 g/dL sodium, serum 138 mmol/L carbon dioxide, venous blood 29 mmol/L glucose, plasma fasting 291 mg/dL Estimated Glomerular Filtration Rate (calc) >60 mL/min/1.73m2 chloride, serum 100 mmol/L creatinine, serum 0.79 mg/dL potassium, serum 4.2 mmol/L aspartate aminotransferase (SGOT), serum 19 U/L alanine aminotransferase (SGPT), serum 16 U/L albumin, serum 3.4 g/dL alkaline phosphatase, serum 82 U/L urea nitrogen, blood 16 mg/dL calcium, serum 8.8 mg/dL Clinical Lists Update: CBC,CMP,ESR - Hematology mean corpuscular volume, RBC 92.4 fL platelet count 157 10*3/mm3 leukocyte count, blood 5.6 10*3/mm3 hemoglobin, blood 13.8 g/dL red blood cell distribution width 14.4 % hematocrit, blood 42.6 % erythrocyte (RBC) count 4.61 10*6/mm3 erythrocyte sedimentation rate 10 mm/h Clinical Lists Update: CBC,CMP,PT,INR - Chemistry Estimated Glomerular Filtration Rate (calc) 48 mL/min/1.73m2 glucose, plasma fasting 294 mg/dL sodium, serum 136 mmol/L bilirubin, serum, total 0.3 mg/dL alanine aminotransferase (SGPT), serum 38 U/L aspartate aminotransferase (SGOT), serum 14 U/L protein, total, serum 8.0 g/dL potassium, serum 3.7 mmol/L creatinine, serum 1.1 mg/dL carbon dioxide, venous blood 32 mmol/L chloride, serum 99 mmol/L calcium, serum 9.4 mg/dL urea nitrogen, blood 18 mg/dL alkaline phosphatase, serum 149 U/L albumin, serum 3.7 g/dL Clinical Lists Update: CBC,CMP,PT,INR - Coagulation PTT patient 25 s prothrombin time (patient) 12.7 s international normalized ratio (INR) 1.0 Clinical Lists Update: CBC,CMP,PT,INR - Hematology mean corpuscular volume, RBC 91 fL erythrocyte (RBC) count 4.74 10*6/mm3 leukocyte count, blood 6.9 10*3/mm3 red blood cell distribution width 14.6 % hematocrit, blood 43 % hemoglobin, blood 14.0 g/dL platelet count 168 10*3/mm3 Clinical Lists Update: CMP,CHOL,TRIG,TSH,FREE T4,HGA1C - Chemistry Estimated Glomerular Filtration Rate (calc) >60 mL/min/1.73m2 albumin, serum 3.2 g/dL sodium, serum 138 mmol/L triglyceride, serum, fasting [...] 13 mg/dL alkaline phosphatase, serum 88 U/L glucose, plasma fasting 172 mg/dL Clinical Lists Update: CMP,Chol,Trig,HgA1c,TSH,Free T4 - Chemistry Estimated Glomerular Filtration Rate (calc) >60 mL/min/1.73m2 glucose, plasma fasting 192 mg/dL sodium, serum 135 mmol/L triglyceride, serum, fasting 264 mg/dL bilirubin, serum, total 0.4 mg/dL alanine aminotransferase (SGPT), serum 33 U/L aspartate aminotransferase (SGOT), serum 36 U/L protein, total, serum 7.0 g/dL potassium, serum 4.6 mmol/L thyroid stimulating hormone, serum 5.68 u[iU]/mL hemoglobin A1C, blood, as % of total hemoglobin 9.1 % thyroxine, serum, free 0.94 ng/dL creatinine, serum 0.80 mg/dL carbon dioxide, venous blood 28 mmol/L cholesterol, serum 143 mg/dL chloride, serum 98 mmol/L calcium, serum 9.1 mg/dL urea nitrogen, blood 15 mg/dL alkaline phosphatase, serum 113 U/L albumin, serum 3.5 g/dL Clinical Lists Update: CMP,FLP,HgA1c,TSH,Free T4,Microalbumin - Chemistry [...] % Encounters Code Encounter Date Provider Facility CPT-77452 Ofc Vst, Est Level IV 17:19:02 TO[facility] REPAIR[facility]EN[facility] Tressa Stephens DO, FACP CPT-53675 Ofc Vst, Est Level IV 16:15:30 [facility] Tressa Stephens DO, FACP CPT-06744 Ofc Vst, Est Level IV 17:12:11 [facility] [employer] Tressa Stephens DO, FACP CPT-49415 Ofc Vst, Est Level IV 16:52:17 [facility] REPA[facility] Tressa Danica Stephens Tressa S Stephens, DO, FACP CPT-15694 Ofc Vst, Est Level III 16:30:23 CDT Tressa Danica Conteh Setphens, DO, FACP CPT-36967 Ofc Vst, Est Level III 17:01:51 CDT Tressa Danica Conteh Stephens, DO, FACP CPT-70356 Ofc Vst, Est Level IV 17:35:57 CDT Tressa Danica Conteh Stephens, DO, FACP CPT-29037 Ofc Vst, Est Level III 12:47:22 CDT Tressa Danica Conteh Kat, DO, FACP CPT-66808 Ofc Vst, Est Level IV 13:16:37 CDT Tressa Danica Conteh Kat, DO, FACP CPT-32155 Ofc Vst, Est Level III 21:22:47 CDT Tressa Danica Conteh Kat, DO, FACP CPT-78807 Ofc Vst, Est Level III 20:42:44 [facility] [employer] Tressa Danica Conteh Kat, DO, FACP CPT-69721 Ofc Vst, Est Level III 13:42:40 [employer] REPA[employer] Tressa Danica Conteh Stephens, DO, FACP CPT-70491 Ofc Vst, Est Level IV 12:48:28 [employer] REPA[employer] [facility] Tressa Danica Conteh Kat, DO, FACP CPT-46099 Ofc Vst, Est Level III 15:04:48 CDT Tressa Danica Bustillos S Kat, DO, FACP CPT-18446 Ofc Vst, Est Level IV 17:19:18 CDT Tressa Danica Conteh Kat, DO, FACP CPT-91509 Ofc Vst, Est Level III 09:04:25 CDT Tressa Danica Conteh Kat, DO, FACP CPT-60463 Ofc Vst, Est Level III 16:10:44 CDT Tressaino Conteh Stephens, DO, FACP CPT-61834 Ofc Vst, Est Level IV 20:58:16 [employer] REPAIR[facility] Tressa Conteh Stephens, DO, FACP CPT-21861 Ofc Vst, Est Level IV 10:28:49 TO[employer] REPAIR[employer] [facility] Tressa Conteh Stephens, DO, FACP CPT-16793 Ofc Vst, Est Level III 14:30:37 TOOL REPAIR[employer] [facility] Tressa Conteh Stephens, DO, FACP CPT-50428 Ofc Vst, Est Level IV 11:15:48 CDT Tressa Conteh Stephens, DO, FACP CPT-63188 Ofc Vst, Est Level IV 11:15:33 CDT Tressa Danica Conteh Stephens, DO, FACP CPT-42723 Ofc Vst, Est Level IV 11:30:32 CDT Tressaino Conteh Stephens, DO, FACP CPT-49257 Ofc Vst, Est Level IV 11:44:55 CDT Tressaino Conteh Stephens, DO, FACP CPT-34283 Ofc Vst, Est Level IV 14:27:05 CDT Tressaino Conteh Stephens, DO, FACP CPT-71951 Ofc Vst, Est Level V 14:28:06 TOOL REPAIR[employer] [facility]ENCH Tressa Conteh Stephens, DO, FACP CPT-95348 Ofc Vst, Est Level IV 12:03:43 TOOL REPAIR[employer] [facility]ENCH Tressa Conteh Stephens, DO, FACP CPT-53463 Ofc Vst, Est Level V 15:06:48 TOOL REPAIR[employer] [facility]ENCH Tressa Conteh Stephens, DO, FACP CPT-62891 Ofc Vst, Est Level III 15:36:23 TOOL REPAIRER BENCH Tressa Conteh Stephens, DO, FACP CPT-07142 Ofc Vst, Est Level V 15:39:00 CDT Tressa Danica Conteh Stephens, DO, FACP CPT-65698 Ofc Vst, Est Level V 14:02:35 CDT Tressa Danica Conteh Stephens, DO, FACP CPT-50389 Ofc Vst, Est Level III 15:00:21 CDT Tressaino Conteh Stephens, DO, FACP CPT-70197 Ofc Vst, Est Level IV 13:45:16 CDT Tressa Danica Conteh Kat, DO, FACP CPT-63798 Ofc Vst, Est Level IV 14:31:48 CDT Tressaino Conteh Kat, DO, FACP CPT-28364 Ofc Vst, Est Level IV 11:14:51 CDT Tressaino Conteh Kat, DO, FACP CPT-67839 Ofc Vst, Est Level IV 14:36:19 CDT Tressaino Conteh Kat, DO, FACP CPT-06256 Ofc Vst, Est Level IV 15:56:12 TOOL REPAIRER BENCH Tressa Conteh Kat, DO, FACP CPT-99658 Ofc Vst, Est Level IV 11:37:02 CDT Tressa Danica Conteh Stephens, DO, FACP CPT-91677 Ofc Vst, Est Level III 11:05:27 CDT Tressa Danica Bustillos S Stephens, DO, FACP CPT-83603 Ofc Vst, Est Level IV 12:12:37 CDT Tressaino Conteh Kat, DO, FACP CPT-05165 Ofc Vst, Est Level IV 11:55:51 CDT Tressa Danica Conteh Stephens, DO, FACP CPT-75687 Ofc Vst, Est Level V 13:46:43 CDT Tressa Danica Conteh Stephens, DO, FACP CPT-16177 Ofc Vst, Est Level IV 14:23:36 CDT Tressa Danica Conteh Stephens, DO, FACP CPT-17359 Ofc Vst, Est Level III 14:59:12 CDT Tressa Danica Conteh Kat, DO, FACP CPT-11611 Ofc Vst, Est Level IV 16:01:19 CDT Tressa Danica Conteh Kat, DO, FACP CPT-46210 Ofc Vst, Est Level IV 15:21:33 TOOL REPAIRER BENCH Tressa Conteh Kat, DO, FACP CPT-22282 Ofc Vst, Est Level IV 10:21:01 TOOL REPAIRER BENCH Tressaino Conteh Kat, DO, FACP CPT-60356 Ofc Vst, Est Level V 12:53:03 TOOL REPAIRER [facility]ENCH Tressa Conteh Stephens, DO, FACP CPT-22644 Ofc Vst, Est Level IV 10:54:43 CDT Tressaino Conteh Kat, DO, FACP CPT-66673 Ofc Vst, Est Level V 10:18:33 CDT Tressa Danica Conteh Kat, DO, FACP CPT-57139 Ofc Vst, Est Level V 14:14:31 CDT Tressa Danica Conteh Kat, DO, FACP CPT-30965 Ofc Vst, Est Level IV 12:25:33 CDT Tressa Danica Conteh Kat, DO, FACP CPT-05373 Ofc Vst, Est Level IV 15:27:17 CDT Tressa Danica Conteh Kat, DO, FACP CPT-32932 Ofc Vst, Est Level IV 14:47:24 CDT Tressaino Conteh Stephens, DO, FACP CPT-83449 Ofc Vst, Est Level V 15:19:25 CDT Tressa Danica [facility] CPT-62084 Ofc Vst, Est Level V 11:41:37 CDT Tressa Danica Conteh Stephens, DO, FACP CPT-75821 Ofc Vst, Est Level V 11:12:22 CDT Tressa Danica Conteh Stephens, DO, FACP CPT-47049 Ofc Vst, Est Level IV 14:51:16 TOOL REPAIRER BENCH Tressa Conteh Kat, DO, FACP CPT-18883 Ofc Vst, Est Level IV 11:31:20 TOOL REPAIRER BENCH Tressaino Conteh Kat, DO, FACP CPT-63048 Ofc Vst, Est Level IV 10:35:51 TOOL REPAIRER BENCH Tressaino Conteh Stephens, DO, FACP CPT-30429 Ofc Vst, Est Level IV 11:46:27 TOOL REPAIRER BENCH Tressa Conteh Stephens, DO, FACP CPT-26405 Ofc Vst, Est Level IV 09:34:16 TOOL REPAIRER BENCH Tressa Conteh Stephens, DO, FACP CPT-85182 Ofc Vst, Est Level V 11:34:06 TOOL REPAIRER BENCH Tressa Conteh Stephens, DO, FACP CPT-87767 Ofc Vst, Est Level IV 13:57:23 CDT Tressa Conteh Stephens, DO, FACP CPT-97062 Ofc Vst, Est Level IV 12:34:42 CDT Tressaino Conteh Kat, DO, FACP CPT-73264 Ofc Vst, Est Level IV 10:18:20 CDT Tressa Stephens, DO, FACP CPT-43910 Ofc Vst, Est Level IV 10:10:02 TOOL REPAIRER BENCH Tressa Danica Kat Stephens, DO, FACP CPT-47424 Ofc Vst, Est Level IV 15:36:41 TOOL REPAIR[employer] [facility]ENCH Tressa Danica Kat Stephens, DO, FACP CPT-09504 Ofc Vst, Est Level III 10:41:26 TOOL REPAIR[employer] [facility]CH Tressa Mishra Kat Stephens, DO, FACP CPT-90588 Ofc Vst, Est Level IV 13:29:32 CDT Tressa Danica Kat Stephens, DO, FACP CPT-71185 Ofc Vst, Est Level IV 10:30:12 CDT Tressa Stephens [facility] [place] CPT-38750 Ofc Vst, Est Level IV 11:11:37 TOOL REPAIRER BENCH Tressa Stephens [facility] [place] CPT-25948 Ofc Vst, Est Level IV 11:06:40 TOOL REPAIRER BENCH Tressa Stephens [facility] [place] CPT-57081 Ofc Vst, Est Level IV 12:01:24 CDT Tressa Stephens [facility] [place] CPT-09849 Ofc Vst, Est Level IV 11:43:30 CDT Tressa Stephens [facility] [place] CPT-06598 Ofc Vst, Est Level IV 14:22:04 CDT Tressa Stephens [facility] [place] CPT-11508 Ofc Vst, Est Level IV 13:59:46 CDT Tressa Stephens [facility] [place] CPT-28171 Ofc Vst, Est Level IV 14:02:19 TOOL REPAIRER BENCH Tressa Stephens [facility] [place] CPT-66223 Ofc Vst, Est Level IV 15:07:12 TOOL REPAIRER BENCH Tressa Stephens [facility] [place] CPT-89234 Ofc Vst, Est Level IV 15:11:06 TOOL REPAIRER BENCH Tressa Davisanndre JorgensenStephens [facility] [place] CPT-07614 Ofc Vst, Est Level IV 15:30:27 TOOL REPAIRER BENCH Tressa Jorgensenner [facility] [place] CPT-25910 Ofc Vst, Est Level IV 11:04:18 TOOL REPAIRER BENCH Tressa Davisanndre JorgensenStephens [facility] [place] CPT-18025 Ofc Vst, Est Level IV 13:50:55 TOOL REPAIRER BENCH Tressa Jorgensenner [facility] [place] CPT-58984 Ofc Vst, Est Level IV 16:27:37 CDT Tressa Danica Jorgensenner [facility] State Physician [place] CPT-54815 Ofc Vst, Est Level IV 14:19:58 CDT Tressa Jorgensenner [facility] State Phys[place] CPT-02932 Ofc Vst, New Level IV 14:53:27 CDT Tressa Danica Stephens [facility] State Phys[place] Procedures Code Procedure Name Date Entry Date Standard Description CPT-G0439 Medicare Annual Wellness Visit 17:05:42 TOOL REPAIRER [facility] CPT-G8446 E-Prescribing not done due to controlled substance 21:22 :47 CDT CPT-G8446 E-Prescribing not done due to controlled substance 20:42 :44 TOOL REPAIRER [facility] CPT-G8445 E-Prescribing Not sent due to no medication given 13:42: 40 TOOL REPAIRER [facility] CPT-G8445 E-Prescribing Not sent due to no medication given 12:48: 28 TOOL REPAIRER [facility] CPT-G8445 E-Prescribing Not sent due to no medication given 21:29: 51 TOOL REPAIRER [facility] CPT-G0439 Medicare Annual Wellness Visit 21:29:51 TOOL REPAIRER [facility] CPT-G8443 E-Prescribing Medication Sent 15:04:48 CDT CPT-G8446 E-Prescribing not done due to controlled substance 17:19 :18 CDT CPT-G8446 E-Prescribing not done due to controlled substance 09:04 :25 CDT CPT-G8445 E-Prescribing Not sent due to no medication given 16:10: 44 CDT CPT-G8445 E-Prescribing Not sent due to no medication given 20:58: 16 TOOL REPAIRER [facility] CPT-G8446 E-Prescribing not done due to controlled substance 10:28 :49 TOOL REPAIRER [facility] CPT-G8443 E-Prescribing Medication Sent 14:30:37 TOOL REPAIRER [facility] CPT-G8446 E-Prescribing not done due to controlled substance 15:30 :57 CDT CPT-G0438 Medicare Annual Wellness Visit Initial 15:30:57 CDT CPT-23461 Injection, Pneumovax 11:37:02 CDT CPT-8445 E-Prescribing Not sent due to no medication given 15:19: 25 CDT CPT-8445 E-Prescribing Not sent due to no medication given 11:41: 37 CDT CPT-65773 Influenza Vaccine 10:38:35 TOOL REPAIRER [facility] CPT-G0008 Administration Influenza Vaccine 10:38:35 TOOL REPAIRER [facility] CPT-90870 Influenza Vaccine 10:03:07 CDT CPT-G0008 Administration Influenza Vaccine 10:03:07 CDT
--- OUTSIDE RECORDS SUMMARY | 2018-04-13 06:40 | XMS REPORT ---
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 Tressa Stehpens Sinoatrial node dysfunction CHRONIC PAIN V15.89 Active [...] Generic Name NDC Status Provider Patient Instruction DURAGESIC-25 25 MCG/HR PT72 1 patch Q72 hours FENTANYL 25057834134 Active Tressa Stephens SYNTHROID 0.025 MG TAB 1 PO Daily along with 150mcg to equal 175mcg daily LEVOTHYROXINE SODIUM 68902682401 Active Tressa Stephens POTASSIUM CHLORIDE ER 20 MEQ CR-TABS 1 PO DAILY POTASSIUM CHLORIDE 43856574189 Active Carlyn Marks HYDROXYZINE HCL 25 MG TABS 1 PO TID prn HYDROXYZINE HCL 42715128160 No Longer Active Tressa Stephens VALIUM 2 MG TAB 1-2 PO before MRI procedure DIAZEPAM 11444089452 No Longer Active Tressa Stephens OXYCONTIN 20 MG [id number] 1 PO Q 12hrs scheduled OXYCODONE HCL No Longer Active Tressa Stephens HUMALOG KWIKPEN 100 UNIT/ML SOPN 12 units before each meal INSULIN LISPRO (HUMAN) 98198042887 Active Tressaino Stephens PREDNISONE 20 MG TAB 3 PO at one time daily PREDNISONE 53607272679 No Longer Active Tressa Stephens ZOSTAVAX 04786 UNT/0.65ML SOLR 1 injection once to prevent Shingles ZOSTER VACCINE LIVE 97981244406 No Longer Active Tressaino Stephens VOLTAREN 1 % GEL Apply to affected area twice daily prn pain. DICLOFENAC SODIUM 43973557387 No Longer Active Tressa Stephens ASTEPRO 0.15 % SOLN 1 puff each nostril TID AZELASTINE HCL 68515774926 No Longer Active Tressa Stephens CELEXA 20 MG TABS 1 PO daily CITALOPRAM HYDROBROMIDE 88661763737 No Longer Active Tressa Stephens KEFLEX 500 MG CAP 1 PO TID for 7 days CEPHALEXIN 60147110516 No Longer Active Carlyn Thompsontis SYNTHROID 150 MCG TABS 1 PO Daily LEVOTHYROXINE SODIUM 02581133305 Active Carlyn Thompsontis NEURONTIN 300 MG CAP 1-2 PO BID GABAPENTIN 11580497993 Active Tressa TRANAN ODT 8 MG TBDP 1 po q 6hrs prn nausea ONDANSETRON 45953987195 No Longer Active Tressa Stephens CARAFATE 1 GM TABS 1 PO 30 minutes before meals and at bedtime SUCRALFATE 84601726770 No Longer Active Tressa Danica Stephens SYNTHROID 150 MCG TABS 1 PO every other day alternating with 137mcg LEVOTHYROXINE SODIUM 86059505442 No Longer Active Tressa Danica Stephens INDOMETHACIN 50 MG CAPS 1 PO TID for 5 days INDOMETHACIN 60921628384 No Longer Active Tressa Danica Stephens PREDNISONE 5 MG TABS 2 Po daily for 2 weeks and then change to 1 PO daily for 2 weeks. PREDNISONE 12482009653 No Longer Active Tressa Danica Stephens XANAX 0.25 MG TABS 1-2 PO Q6hrs prn ALPRAZOLAM 61908766487 Active Carlyn [place] LASIX 20 MG TAB 1 PO BID prn swelling FUROSEMIDE 24727972006 Active Tressa Danica Stephens PREDNISONE 20 MG TAB 1 PO daily PREDNISONE 64790795677 No Longer Active Tressa Danica Stephens FLUDROCORTISONE ACETATE 0.1 MG TABS 1 PO daily FLUDROCORTISONE ACETATE 05073299102 No Longer Active Tressa Danica Stephens ACCURETIC 20-12.5 MG TABS 1 PO daily QUINAPRIL- HYDROCHLOROTHIAZIDE 50750876416 No Longer Active Tressaino Stephens SYNTHROID 150 MCG TABS 1 PO alternating with 137 mcg every other day LEVOTHYROXINE SODIUM 75574318829 No Longer Active Tressa Danica Stephens OXYCODONE HCL 10 MG TABS 2 PO Q4hrs prn OXYCODONE HCL 23737694668 Active Tressa Danica Stephens OXYCONTIN 20 MG [id number] 1 PO Q12hrs scheduled OXYCODONE HCL 93787119953 No Longer Active Tressa Danica Stephens COREG 12.5 MG TABS 1 PO BID for Blood pressure (on hold 04/30) CARVEDILOL 89314133953 No Longer Active Tressa Danica Stephens DAGOBERTO 180 MG TABS 1 PO QD FEXOFENADINE HCL Active Tressa Danica Stephens ZOCOR 20 MG TAB 1 PO daily SIMVASTATIN 27825141707 Active Tressa Danica Stephens MIRALAX POWD 1 scoop in 4oz of water PO BID POLYETHYLENE GLYCOL 3350 70113366426 Active Susanna Bruno DARVOCET-N 100 100-650 MG TAB 1 PO Q6hrs prn pain PROPOXYPHENE N-APAP 04324665099 No Longer Active Tressa Danica LAW'S NASAL SPRAY (DEXAMETHASONE, GENTAMICIN, SALINE) 2 puffs each nostril TID x [address] LAW'Wero NASAL SPRAY ( DEXAMETHASONE, GENTAMICIN, SALINE) No Longer Active Tressa Danica Stephens SINEMET 25-100 MG TABS 1 po TID CARBIDOPA-LEVODOPA 98995155731 Active Tressa Danica Stephens BENADRYL 25 MG CAP 1 PO Q6hrs prn itching DIPHENHYDRAMINE HCL 75598391118 No Longer Active Tressa Danica Stephens NEXIUM 40 MG CPDR 1 PO daily ESOMEPRAZOLE MAGNESIUM 11678871960 Active Tressaino Stephens K-PHOS TABS 1 po BID POTASSIUM PHOSPHATE MONOBASIC TABS 65935549321 No Longer Active Tressa Danica Stephens MICARDIS 80 MG TABS 1 po daily TELMISARTAN 45948599657 Active Tressa Danica Stephens MULTIVITAMINS TABS 1 PO QD MULTIPLE VITAMIN 38962447401 No Longer Active Tressa Danica Stephens LANTUS SOLOSTAR 100 UNIT/ML SOLN 40 units SQ QHS INSULIN GLARGINE 73122770620 Active Tressa Danica Stephens PATANOL 0.1 % SOLN 2 drops in each eye BID prn OLOPATADINE HCL 47942988645 No Longer Active Tressa Danica Stephens FISH OIL 1000 MG CAPS 2 tabs po TID OMEGA-3 FATTY ACIDS 15611689653 No Longer Active Tressa Danica Stephens PREMARIN 1.25 MG TAB 1 PO daily ESTROGENS CONJUGATED 68299273001 Active Tressa Danica Stephens PEN NEEDLES 1/2" 29G X 12MM MISC as directed on the Lantus Pen INSULIN PEN NEEDLE 91487673388 No Longer Active Tressa Danica Stephens BD INSULIN SYRINGE ULTRAFINE 29G X 1/2" 1 ML MISC as directed DX: Diabetes INSULIN SYRINGE-NEEDLE U-100 61105391423 No Longer Active Tressa Danica Stephens LOVAZA 1 GM CAPS 2 po BID DTODC-1-ILQH ETHYL ESTERS 81430503387 Active Tressa Danica Stephens PREDNISONE 10 MG TAB 1 PO daily PREDNISONE 06438335704 No Longer Active Tressa Danica Stephens ALPRAZOLAM 0.25 MG TABS 1/2 to 1 tab po q 8 hrs prn anxiety 07/24 ALPRAZOLAM 44008651042 No Longer Active Tressa Danica Stephens TRANXENE-T 7.5 MG TABS 1 po BID prn CLORAZEPATE DIPOTASSIUM 92721503225 Active Carlyn Marks ZESTRIL 20 MG TABS 1 po daily LISINOPRIL 43243490034 No Longer Active Tressa Danica Stephens MUCINEX 600 MG [id number] 1 po TID GUAIFENESIN 51800988963 Active Tressa Danica Stephens DARVOCET-N 100 100-650 MG TAB 1 PO Q6hrs prn pain PROPOXYPHENE N-APAP 04066088911 No Longer Active Tressa Danica Stephens METANX 2.8-25-2 MG TABS 1 PO daily [id number] 60775052216 No Longer Active Tressa Danica Stephens SINEMET 25-100 MG TABS 2 PO BID prn CARBIDOPA-LEVODOPA 56933841674 No Longer Active Tressa Danica Stephens LOVAZA 1 GM CAPS 2 po BID [id number] ETHYL ESTERS 46460010308 No Longer Active Tressa Danica Stephens LORTAB 10 TABS 1 po q 4 hrs prn pain HYDROCODONE- ACETAMINOPHEN TABS 17140489430 No Longer Active Tressa Danica Stephens CALCIUM 600 + D 600-200 MG-UNIT TABS 1 po daily CALCIUM CARBONATE-VITAMIN D 21414624654 Active Tressa Danica Stephens VITAMIN C 500 MG TABS 1 po BID ASCORBIC ACID 62202682957 Active Tressa Danica Stephens CLORAZEPATE DIPOTASSIUM 3.75 MG TABS 1 tab 2 times daily prn CLORAZEPATE DIPOTASSIUM 55987791189 No Longer Active Tressa Danica Stephens PRILOSEC 20 MG CAP CR 1 PO QD OMEPRAZOLE 90330589953 No Longer Active Tressa Danica Stephens PREMARIN 1.25 MG TABS 1 po daily ESTROGENS CONJUGATED 23264212484 No Longer Active Tressa Danica Stephens LIPITOR 20 MG TABS 1 po daily ATORVASTATIN CALCIUM 38204696703 No Longer Active Tressa Danica Stephens CLONIDINE HCL 0.1 MG TAB 1 po BID CLONIDINE HCL 10311532079 No Longer Active Tressa Danica Stephens ACCURETIC 20-12.5 MG TABS 2 PO QAM QUINAPRIL- HYDROCHLOROTHIAZIDE 94187134800 No Longer Active Tressa Danica Stephens MICARDIS 80 MG TABS 1 PO QPM TELMISARTAN 56359482410 No Longer Active Tressa Danica Stephens GLUCOVANCE 5-500 MG TABS 1 tab po BID GLYBURIDE-METFORMIN 20468959493 No Longer Active Tressa Danica Stephens LEVEMIR 100 UNIT/ML SOLN 40 units at HS INSULIN DETEMIR 26723370586 No Longer Active Tressa Danica Stephens TAMIFLU 75 MG CAPS 1 PO daily for 10 days OSELTAMIVIR PHOSPHATE 10283774905 No Longer Active Matthieu Sonya PREDNISONE 10 MG TABS 1 PO Daily PREDNISONE 31316808474 No Longer Active Tressaino Stephens LANTUS 100 UNIT/ML SOLN (INSULIN GLARGINE) PEN Take 32 units SQ QHS LANTUS 100 UNIT/ML SOLN (INSULIN GLARGINE) PEN No Longer Active Tressa Danica Stephens CEFTIN 250 MG TABS 1 PO BID CEFUROXIME AXETIL 85541859713 No Longer Active Tressa Danica LAW'S NASAL SPRAY (DEXAMETHASONE, GENTAMICIN, SALINE) 2 puffs each nostril TID for [address] LAW'Wero NASAL SPRAY ( DEXAMETHASONE, GENTAMICIN, SALINE) No Longer Active Tressa Danica Stephens ATROVENT 0.06 % SOLN 2 puffs each nostril TID prn runny nose and sinus drainage IPRATROPIUM BROMIDE 34720441507 No Longer Active Tressa Danica Stephens MUCINEX DM 30-600 MG TB12 1 PO Q12hrs DEXTROMETHORPHAN- GUAIFENESIN 47456996758 No Longer Active Tressaino Stephens ADVAIR DISKUS 100-50 MCG/DOSE MISC 1 puff BID FLUTICASONE-SALMETEROL 71154880477 No Longer Active Tressaino Stephens ROBITUSSIN A-C 10-100 MG/5ML SYRUP 1 teaspoon PO Q 4-6 hr prn ROBITUSSIN A-C 10-100 MG/5ML SYRUP 83827991187 No Longer Active Tressa Danica Stephens TESSALON 200 MG CAPS 1 PO TID prn cough BENZONATATE 55047561786 No Longer Active Bhumi Ryan ROBITUSSIN A-C 10-100 MG/5ML SYRUP 1 teaspoon PO Q 4-6 hr prn ROBITUSSIN A-C 10-100 MG/5ML SYRUP 86802519391 No Longer Active Bhumi URRUTIACET-N 100 100-650 MG TABS 1 po q 4 hrs. prn PROPOXYPHENE N-APAP 56292675266 No Longer Active Tressa Danica Stephens SALSALATE 750 MG TABS 1 po QID prn SALSALATE 93287294987 No Longer Active Tressa Danica Stephens DAGOBERTO 180 MG TABS 1 PO QD FEXOFENADINE HCL 54955924863 No Longer Active Tressa Danica LAW'S NASAL SPRAY (DEXAMETHASONE, GENTAMICIN, SALINE) 2 puffs each nostril TID DR. LAW'Wero NASAL SPRAY (DEXAMETHASONE, GENTAMICIN, SALINE) No Longer Active Tressa Danica Stephens AMOXICILLIN 500 MG CAP 1 PO TID AMOXICILLIN 09890405819 No Longer Active Tressa Danica Stephens AVANDIA 8 MG TABS 1 po daily ROSIGLITAZONE MALEATE 77341806973 No Longer Active Tressa Danica Stephens DICLOFENAC POTASSIUM 50 MG TABS 1 po TID DICLOFENAC POTASSIUM 38131964029 No Longer Active Tressa Danica Stephens DAGOBERTO 180 MG TABS 1 PO QD FEXOFENADINE HCL 16503529155 No Longer Active Tressa Danica Stephens DRIXORAL 6-120 MG TB12 1 sparingly DEXBROMPHENIRAMINE -PSEUDOEPH 83286934971 No Longer Active Tressa Danica Stephens TOY PLUS EXTRA STRENGTH 500 MG TABS 1 PO daily ASPIRIN BUFFERED 05121588177 No Longer Active Tressa Danica Stephens DETROL LA 4 MG CP24 1 PO daily TOLTERODINE TARTRATE 70842164926 Active Tressa Danica Stephens B-D U/F PEN NEEDLE 31G X 8 MM MISC 1 PO daily Dx: DM Type II INSULIN PEN NEEDLE 43311629067 Active Tressa Stephens OMACOR 1 PO daily OMACOR No Longer Active Tressa Stephens ASCENSIA AUTODISC STRIPS STRP as directed TID Dx: DM Type II GLUCOSE BLOOD 16656446912 Active Narayan Fortune LOVENOX 40 MG/0.4ML SOLN 1 injection daily. Begin Friday05/03/05. ENOXAPARIN SODIUM 78114187727 No Longer Active Tressa Stephens FLUVIRIN INJ done at health dept INFLUENZA VAC TYP A& B SURF ANT 51158868589 No Longer Active Tressa Stephens PNEUMOVAX 23 25 MCG/0.5ML INJ done from health dept PNEUMOCOCCAL VAC POLYVALENT 60404551580 No Longer Active Tressa Stephens MUCINEX 600 MG TB12 1 PO Q12hrs GUAIFENESIN 93934634575 No Longer Active Tressa Stephens HUMALOG MIX 75/25 75-25 % SUSP 26 units in am, 19 units in pm INSULIN LISP & LISP PROT (HUM) 21762316323 No Longer Active Tressa Stephens MULTIVITAMINS TABS 1 po daily MULTIPLE VITAMIN 25698759142 Active Tressa Stephens NEXIUM 40 MG CPDR 1 po daily ESOMEPRAZOLE MAGNESIUM 32274889824 No Longer Active Tressa Stephesn NORVASC 10 MG TABS 1 po daily AMLODIPINE BESYLATE 93649526651 Active Tressa Stephens Immunizations Vaccine Administration Date [...] Range Description blood pressure, diastolic - 8462-4 80 mm[Hg] BP gallardo blood pressure, systolic - 8480-6 146 mm[Hg] BP sys pulse rate E&M - 8867-4 60 /min Heart rate respiratory rate E&M - 9279-1 14 /min Resp rate weight E&M - 3141-9 211 [lb_av] Weight Measured blood pressure, diastolic - 8462-4 78 mm[Hg] BP gallardo blood pressure, systolic - 8480-6 152 mm[Hg] BP sys pulse rate E&M - 8867-4 66 /min Heart rate respiratory rate E&M - 9279-1 14 /min Resp rate temperature E&M 98.6 [degF] Body temperature weight E&M - 3141-9 212 [lb_av] Weight Measured blood pressure, diastolic - [...] E&M - 3141-9 221 [lb_av] Weight Measured Diagnostic Results Date Name Value Unit Range Description Clinical Lists Update: CBC,CMP,Chol,Trig,TSH,Free T4 - Chemistry albumin, serum 3.5 g/dL triglyceride, serum, fasting 193 mg/dL urea nitrogen, blood 13 mg/dL calcium, serum 8.8 mg/dL chloride, serum 106 mmol/L cholesterol, serum 127 mg/dL carbon dioxide, venous blood 25 mmol/L creatinine, serum 0.76 mg/dL thyroxine, serum, free 1.13 ng/dL thyroid stimulating hormone, serum 2.37 u[iU]/mL potassium, serum 4.1 mmol/L protein, total, serum 6.7 g/dL aspartate aminotransferase (SGOT), serum 17 U/L alanine aminotransferase (SGPT), serum 19 U/L bilirubin, serum, total 0.5 mg/dL Estimated Glomerular Filtration Rate (calc) >60 mL/min/1.73m2 glucose, plasma fasting 162 mg/dL sodium, serum 141 mmol/L alkaline phosphatase, serum 80 U/L Clinical Lists Update: CBC,CMP,Chol,Trig,TSH,Free T4 - Hematology hemoglobin, blood 13.4 g/dL hematocrit, blood 41.6 % platelet count 187 10*3/mm3 erythrocyte (RBC) count 4.49 10*6/mm3 leukocyte count, blood 6.0 10*3/mm3 mean corpuscular volume, RBC 92.7 fL red blood cell distribution width 14.9 % Clinical Lists Update: CBC,CMP,ESR - Chemistry potassium, serum 4.2 mmol/L albumin, serum 3.4 g/dL aspartate aminotransferase (SGOT), serum 19 U/L alanine aminotransferase (SGPT), serum 16 U/L bilirubin, serum, total 6.8 mg/dL sodium, serum 138 mmol/L glucose, plasma fasting 291 mg/dL Estimated Glomerular Filtration Rate (calc) >60 mL/min/1.73m2 protein, total, serum 0.6 g/dL alkaline phosphatase, serum 82 U/L urea nitrogen, blood 16 mg/dL calcium, serum 8.8 mg/dL chloride, serum 100 mmol/L carbon dioxide, venous blood 29 mmol/L creatinine, serum 0.79 mg/dL Clinical Lists Update: CBC,CMP,ESR - Hematology erythrocyte sedimentation rate 10 mm/h hematocrit, blood 42.6 % hemoglobin, blood 13.8 g/dL platelet count 157 10*3/mm3 erythrocyte (RBC) count 4.61 10*6/mm3 leukocyte count, blood 5.6 10*3/mm3 mean corpuscular volume, RBC 92.4 fL red blood cell distribution width 14.4 % Clinical Lists Update: CMP,CHOL,TRIG,HGA1C - Chemistry Estimated Glomerular Filtration Rate (calc) >60 mL/min/1.73m2 glucose, plasma fasting 234 mg/dL albumin, serum 3.4 g/dL alkaline phosphatase, serum 78 U/L urea nitrogen, blood 20 mg/dL calcium, serum 8.9 mg/dL chloride, serum 101 mmol/L cholesterol, serum 121 mg/dL carbon dioxide, venous blood 27 mmol/L creatinine, serum 0.85 mg/dL thyroxine, serum, free 1.19 ng/dL hemoglobin A1C, blood, as % of total hemoglobin 8.3 % thyroid stimulating hormone, serum 3.34 u[iU]/mL potassium, serum 4.0 mmol/L protein, total, serum 6.7 g/dL aspartate aminotransferase (SGOT), serum 24 U/L alanine aminotransferase (SGPT), serum 20 U/L bilirubin, serum, total 0.5 mg/dL triglyceride, serum, fasting 233 mg/dL sodium, serum 136 mmol/L anion gap, serum 8 Clinical Lists Update: CMP,CHOL,TRIG,TSH,FREE T4,HGA1C - Chemistry alkaline phosphatase, serum 88 U/L albumin, serum 3.2 g/dL calcium, serum 8.9 mg/dL chloride, serum 101 mmol/L cholesterol, serum 146 mg/dL carbon dioxide, venous blood 29 mmol/L creatinine, serum 0.71 mg/dL thyroxine, serum, free 0.85 ng/dL hemoglobin A1C, blood, as % of total hemoglobin 9.1 % thyroid stimulating hormone, serum 6.44 u[iU]/mL potassium, serum 3.8 mmol/L protein, total, serum 7.0 g/dL aspartate aminotransferase (SGOT), serum 23 U/L alanine aminotransferase (SGPT), serum 17 U/L bilirubin, serum, total 0.3 mg/dL triglyceride, serum, fasting 202 mg/dL sodium, serum 138 mmol/L glucose, plasma fasting 172 mg/dL Estimated Glomerular Filtration Rate (calc) >60 mL/min/1.73m2 urea nitrogen, blood 13 mg/dL Estimated Glomerular Filtration Rate (calc) >60 mL/min/1.73m2 glucose, plasma fasting 197 mg/dL sodium, serum 139 mmol/L triglyceride, serum, fasting [...] 9 mg/dL alkaline phosphatase, serum 69 U/L albumin, serum 3.1 g/dL Clinical Lists Update: CMP,FLP,HgA1c,TSH,Free T4,Microalbumin - [...] % Encounters Code Encounter Date Provider Facility CPT-46500 Ofc Vst, Est Level III 18:13:30 CDT Tressa Stephens DO, FACP CPT-66760 Ofc Vst, Est Level III 16:51:35 CDT Tressaino Conteh Stephens, DO, FACP CPT-55153 Ofc Vst, Est Level III 15:18:13 CDT Tressa Danica Conteh Stephens, DO, FACP CPT-78810 Ofc Vst, Est Level IV 17:19:02 PROCESS SPECIALIST Tressa Conteh Stephens, DO, FACP CPT-23891 Ofc Vst, Est Level IV 16:15:30 PROCESS SPECIALIST Tressa Conteh Stephens, DO, FACP CPT-10633 Ofc Vst, Est Level IV 17:12:11 PROCESS SPECIALIST Tressa Bustillos S Stephens, DO, FACP CPT-21868 Ofc Vst, Est Level IV 16:52:17 PROCESS SPECIALIST Tressa Conteh Stephens, DO, FACP CPT-86096 Ofc Vst, Est Level III 16:30:23 CDT Tressaino Conteh Stephens, DO, FACP CPT-27212 Ofc Vst, Est Level III 17:01:51 CDT Tressaino Conteh Stephens, DO, FACP CPT-53102 Ofc Vst, Est Level IV 17:35:57 CDT Tressa Conteh Stephens, DO, FACP CPT-74464 Ofc Vst, Est Level III 12:47:22 CDT Tressa Danica Conteh Stephens, DO, FACP CPT-86386 Ofc Vst, Est Level IV 13:16:37 CDT Tressa Danica Bustillos S Stephens, DO, FACP CPT-61702 Ofc Vst, Est Level III 21:22:47 CDT Tressaino Bustillos S Stephens, DO, FACP CPT-76401 Ofc Vst, Est Level III 20:42:44 PROCESS SPECIALIST Tressa Danica Conteh Stephens, DO, FACP CPT-14236 Ofc Vst, Est Level III 13:42:40 PROCESS SPECIALIST Tressa Conteh Stephens, DO, FACP CPT-28166 Ofc Vst, Est Level IV 12:48:28 PROCESS SPECIALIST Tressa Conteh Stephens, DO, FACP CPT-77611 Ofc Vst, Est Level III 15:04:48 CDT Tressa Danica Conteh Stephens, DO, FACP CPT-11992 Ofc Vst, Est Level IV 17:19:18 CDT Tressa Danica Conteh Stephens, DO, FACP CPT-79041 Ofc Vst, Est Level III 09:04:25 CDT Tressa Danica Conteh Stephens, DO, FACP CPT-28450 Ofc Vst, Est Level III 16:10:44 CDT Tressaino Conteh Stephens, DO, FACP CPT-44143 Ofc Vst, Est Level IV 20:58:16 PROCESS SPECIALIST Tressa Conteh Stephens, DO, FACP CPT-98645 Ofc Vst, Est Level IV 10:28:49 PROCESS SPECIALIST Tressa Conteh Stephens, DO, FACP CPT-19200 Ofc Vst, Est Level III 14:30:37 PROCESS SPECIALIST Tressa Conteh Stephens, DO, FACP CPT-91210 Ofc Vst, Est Level IV 11:15:48 CDT Tressa Danica Conteh Stephens, DO, FACP CPT-16966 Ofc Vst, Est Level IV 11:15:33 CDT Tressa Danica Conteh Stephens, DO, FACP CPT-22027 Ofc Vst, Est Level IV 11:30:32 CDT Tressa Danica Conteh Kat, DO, FACP CPT-70790 Ofc Vst, Est Level IV 11:44:55 CDT Tressaino Conteh Stephens, DO, FACP CPT-30280 Ofc Vst, Est Level IV 14:27:05 CDT Tressa Danica Conteh Stephens, DO, FACP CPT-22599 Ofc Vst, Est Level V 14:28:06 PROCESS SPECIALIST Tressaino Conteh Stephens, DO, FACP CPT-44291 Ofc Vst, Est Level IV 12:03:43 PROCESS SPECIALIST Tressa Conteh Stephens, DO, FACP CPT-66937 Ofc Vst, Est Level V 15:06:48 PROCESS SPECIALIST Tressa Conteh Kat, DO, FACP CPT-83235 Ofc Vst, Est Level III 15:36:23 PROCESS SPECIALIST Tressa Conteh Kat, DO, FACP CPT-83951 Ofc Vst, Est Level V 15:39:00 CDT Tressaino Conteh Kat, DO, FACP CPT-82807 Ofc Vst, Est Level V 14:02:35 CDT Tressaino Conteh Kat, DO, FACP CPT-70113 Ofc Vst, Est Level III 15:00:21 CDT Tressaino Conteh Kat, DO, FACP CPT-84649 Ofc Vst, Est Level IV 13:45:16 CDT Tressaino Conteh Kat, DO, FACP CPT-93658 Ofc Vst, Est Level IV 14:31:48 CDT Tressaino Conteh Kat, DO, FACP CPT-28812 Ofc Vst, Est Level IV 11:14:51 CDT Tressaino Conteh Kat, DO, FACP CPT-26852 Ofc Vst, Est Level IV 14:36:19 CDT Tressaino Conteh Stephens, DO, FACP CPT-65316 Ofc Vst, Est Level IV 15:56:12 PROCESS SPECIALIST Tressa Danica Conteh Stephens, DO, FACP CPT-23819 Ofc Vst, Est Level IV 11:37:02 CDT Tressa Danica Conteh Stephens, DO, FACP CPT-03347 Ofc Vst, Est Level III 11:05:27 CDT Tressaino Conteh Stephens, DO, FACP CPT-98629 Ofc Vst, Est Level IV 12:12:37 CDT Tressa Danica Conteh Stephens, DO, FACP CPT-62093 Ofc Vst, Est Level IV 11:55:51 CDT Tressa Danica Conteh Kat, DO, FACP CPT-15558 Ofc Vst, Est Level V 13:46:43 CDT Tressaino Conteh Stephens, DO, FACP CPT-79993 Ofc Vst, Est Level IV 14:23:36 CDT Tressa Danica Conteh Stephens, DO, FACP CPT-53996 Ofc Vst, Est Level III 14:59:12 CDT Tressaino Conteh Kat, DO, FACP CPT-40802 Ofc Vst, Est Level IV 16:01:19 CDT Tressaino Conteh Stephens, DO, FACP CPT-56895 Ofc Vst, Est Level IV 15:21:33 PROCESS SPECIALIST Tressa Danica Conteh Stephens, DO, FACP CPT-29507 Ofc Vst, Est Level IV 10:21:01 PROCESS SPECIALIST Tressa Bustillos S Stephens, DO, FACP CPT-09924 Ofc Vst, Est Level V 12:53:03 PROCESS SPECIALIST Tressa Danica Conteh Stephens, DO, FACP CPT-36914 Ofc Vst, Est Level IV 10:54:43 CDT Tressa Danica Conteh Stephens, DO, FACP CPT-58923 Ofc Vst, Est Level V 10:18:33 CDT Tressa Danica Conteh Stephens, DO, FACP CPT-05460 Ofc Vst, Est Level V 14:14:31 CDT Tressa Danica Conteh Stephens, DO, FACP CPT-73145 Ofc Vst, Est Level IV 12:25:33 CDT Tressa Danica Conteh Stephens, DO, FACP CPT-92076 Ofc Vst, Est Level IV 15:27:17 CDT Tressa Danica Conteh Stephens, DO, FACP CPT-61901 Ofc Vst, Est Level IV 14:47:24 CDT Tressa Danica Stephens, DO, FACP CPT-94714 Ofc Vst, Est Level V 15:19:25 CDT Tressa Danica [facility] CPT-09821 Ofc Vst, Est Level V 11:41:37 CDT Tressa Danica Conteh Stephens, DO, FACP CPT-10129 Ofc Vst, Est Level V 11:12:22 CDT Tressa Danica Conteh Stephens, DO, FACP CPT-32416 Ofc Vst, Est Level IV 14:51:16 PROCESS SPECIALIST Tressa Danica Conteh Stephens, DO, FACP CPT-37847 Ofc Vst, Est Level IV 11:31:20 PROCESS SPECIALIST Tressa Danica Conteh Stephens, DO, FACP CPT-10736 Ofc Vst, Est Level IV 10:35:51 PROCESS SPECIALIST Tressa Danica Conteh Stephens, DO, FACP CPT-78480 Ofc Vst, Est Level IV 11:46:27 PROCESS SPECIALIST Tressa Danica Conteh Stephens, DO, FACP CPT-15452 Ofc Vst, Est Level IV 09:34:16 PROCESS SPECIALIST Tressa Danica Conteh Stephens, DO, FACP CPT-89222 Ofc Vst, Est Level V 11:34:06 PROCESS SPECIALIST Tressa Danica Conteh Stephens, DO, FACP CPT-96265 Ofc Vst, Est Level IV 13:57:23 CDT Tressa Danica Conteh Kat, DO, FACP CPT-63536 Ofc Vst, Est Level IV 12:34:42 CDT Tressa Danica Conteh Kat, DO, FACP CPT-99889 Ofc Vst, Est Level IV 10:18:20 CDT Tressa Danica Conteh Kat, DO, FACP CPT-04692 Ofc Vst, Est Level IV 10:10:02 PROCESS SPECIALIST Tressa Danica Conteh Stephens, DO, FACP CPT-28635 Ofc Vst, Est Level IV 15:36:41 PROCESS SPECIALIST Tressa Conteh Kat, DO, FACP CPT-83376 Ofc Vst, Est Level III 10:41:26 PROCESS SPECIALIST Tressa Mishra Stephens Tressa Conteh Kat, DO, FACP CPT-00016 Ofc Vst, Est Level IV 13:29:32 CDT Tressa Danica Jorgensenner Tressa Conteh Kat, DO, FACP CPT-97132 Ofc Vst, Est Level IV 10:30:12 CDT Tressa Stephens [facility] [place] CPT-60294 Ofc Vst, Est Level IV 11:11:37 PROCESS SPECIALIST Tressa Stephens [facility] [place] CPT-80938 Ofc Vst, Est Level IV 11:06:40 PROCESS SPECIALIST Tressa Stephens [facility] [place] CPT-83410 Ofc Vst, Est Level IV 12:01:24 CDT Tressa Stephens [facility] [place] CPT-54615 Ofc Vst, Est Level IV 11:43:30 CDT Tressa Stephens [facility] [place] CPT-01840 Ofc Vst, Est Level IV 14:22:04 CDT Tressa Stephens [facility] [place] CPT-64832 Ofc Vst, Est Level IV 13:59:46 CDT Tressa Danica Stephens [facility] [place] CPT-02228 Ofc Vst, Est Level IV 14:02:19 PROCESS SPECIALIST Tressa Stephens [facility] [place] CPT-60953 Ofc Vst, Est Level IV 15:07:12 PROCESS SPECIALIST Tressa Stephens [facility] [place] CPT-78457 Ofc Vst, Est Level IV 15:11:06 PROCESS SPECIALIST Tressa Stephens [facility] [place] CPT-41403 Ofc Vst, Est Level IV 15:30:27 PROCESS SPECIALIST Tressa Stephens [facility] [place] CPT-34154 Ofc Vst, Est Level IV 11:04:18 PROCESS SPECIALIST Tressa Stephens [facility] [place] CPT-45316 Ofc Vst, Est Level IV 13:50:55 PROCESS SPECIALIST Tressa Stephens [facility] [place] CPT-40665 Ofc Vst, Est Level IV 16:27:37 CDT Tressa Stephens [facility] [place] CPT-98328 Ofc Vst, Est Level IV 14:19:58 CDT Tressa Stephens [facility] [place] CPT-96075 Ofc Vst, New Level IV 14:53:27 CDT Tressa Stephens [facility] [place] Procedures Code Procedure Name Date Entry Date Standard Description CPT-G0439 Medicare Annual Wellness Visit 17:05:42 PROCESS SPECIALIST CPT-G8446 E-Prescribing not done due to controlled substance 21:22 :47 CDT CPT-G8446 E-Prescribing not done due to controlled substance 20:42 :44 PROCESS SPECIALIST CPT-G8445 E-Prescribing Not sent due to no medication given 13:42: 40 PROCESS SPECIALIST CPT-G8445 E-Prescribing Not sent due to no medication given 12:48: 28 PROCESS SPECIALIST CPT-G8445 E-Prescribing Not sent due to no medication given 21:29: 51 PROCESS SPECIALIST CPT-G0439 Medicare Annual Wellness Visit 21:29:51 PROCESS SPECIALIST CPT-G8443 E-Prescribing Medication Sent 15:04:48 CDT CPT-G8446 E-Prescribing not done due to controlled substance 17:19 :18 CDT CPT-G8446 E-Prescribing not done due to controlled substance 09:04 :25 CDT CPT-G8445 E-Prescribing Not sent due to no medication given 16:10: 44 CDT CPT-G8445 E-Prescribing Not sent due to no medication given 20:58: 16 PROCESS SPECIALIST CPT-G8446 E-Prescribing not done due to controlled substance 10:28 :49 PROCESS SPECIALIST CPT-G8443 E-Prescribing Medication Sent 14:30:37 PROCESS SPECIALIST CPT-G8446 E-Prescribing not done due to controlled substance 15:30 :57 CDT CPT-G0438 Medicare Annual Wellness Visit Initial 15:30:57 CDT CPT-58186 Injection, Pneumovax 11:37:02 CDT CPT-8445 E-Prescribing Not sent due to no medication given 15:19: 25 CDT CPT-8445 E-Prescribing Not sent due to no medication given 11:41: 37 CDT CPT-26212 Influenza Vaccine 10:38:35 PROCESS SPECIALIST CPT-G0008 Administration Influenza Vaccine 10:38:35 PROCESS SPECIALIST CPT-52682 Influenza Vaccine 10:03:07 CDT CPT-G0008 Administration Influenza Vaccine 10:03:07 CDT
--- OUTSIDE RECORDS SUMMARY | 2018-04-13 06:41 | XMS REPORT | Clinical Summary ---
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 Tressa [...] Generic Name NDC Status Provider Patient Instruction HYDROXYZINE HCL 25 MG TABS 1 PO TID prn HYDROXYZINE HCL 47880894962 No Longer Active Tressa Stephens VALIUM 2 MG TAB 1-2 PO before MRI procedure DIAZEPAM 55230168630 No Longer Active Tressa Stephens OXYCONTIN 20 MG [id number] 1 PO Q 12hrs scheduled OXYCODONE HCL No Longer Active Tressa Stephens HUMALOG KWIKPEN 100 UNIT/ML SOPN 12 units before each meal INSULIN LISPRO (HUMAN) 56506521258 Active Tressa Stephens PREDNISONE 20 MG TAB 3 PO at one time daily PREDNISONE 07576473827 No Longer Active Tressa Danica Stephens ZOSTAVAX 75862 UNT/0.65ML SOLR 1 injection once to prevent Shingles ZOSTER VACCINE LIVE 55718030847 No Longer Active Tressaino Stephens VOLTAREN 1 % GEL Apply to affected area twice daily prn pain. DICLOFENAC SODIUM 86105028913 No Longer Active Tressa Danica Stephens ASTEPRO 0.15 % SOLN 1 puff each nostril TID AZELASTINE HCL 12899632783 No Longer Active Tressa Danica Stephens CELEXA 20 MG TABS 1 PO daily CITALOPRAM HYDROBROMIDE 10539784004 No Longer Active Tressa Danica Stephens KEFLEX 500 MG CAP 1 PO TID for 7 days CEPHALEXIN 42645664263 No Longer Active Carlyn Marks SYNTHROID 150 MCG TABS 1 PO Daily LEVOTHYROXINE SODIUM 26727361647 Active Carlyn Marks NEURONTIN 300 MG CAP 1-2 PO BID GABAPENTIN 28925741557 Active Tressaino ACEVEDO ODT 8 MG TBDP 1 po q 6hrs prn nausea ONDANSETRON 59456525018 No Longer Active Tressaino Stephens CARAFATE 1 GM TABS 1 PO 30 minutes before meals and at bedtime SUCRALFATE 58461423654 No Longer Active Tressa Danica Stephens SYNTHROID 150 MCG TABS 1 PO every other day alternating with 137mcg LEVOTHYROXINE SODIUM 05896319732 No Longer Active Tressaino Stephens INDOMETHACIN 50 MG CAPS 1 PO TID for 5 days INDOMETHACIN 52775335650 No Longer Active Tressaino Stephens PREDNISONE 5 MG TABS 2 Po daily for 2 weeks and then change to 1 PO daily for 2 weeks. PREDNISONE 31880400087 No Longer Active Tressa Stephens XANAX 0.25 MG TABS 1-2 PO Q6hrs prn ALPRAZOLAM 24220722787 Active Tressaino Stephens LASIX 20 MG TAB 1 PO BID prn swelling FUROSEMIDE 29494596690 Active Tressaino Stephens K-DUR 20 MEQ TAB CR 1 PO daily POTASSIUM CHLORIDE Active Tressaino Stephens PREDNISONE 20 MG TAB 1 PO daily PREDNISONE 37949703337 No Longer Active Tressa Stephens FLUDROCORTISONE ACETATE 0.1 MG TABS 1 PO daily FLUDROCORTISONE ACETATE 00515753229 No Longer Active Tressa Stephens ACCURETIC 20-12.5 MG TABS 1 PO daily QUINAPRIL- HYDROCHLOROTHIAZIDE 35852962587 No Longer Active Tressa Stephens SYNTHROID 150 MCG TABS 1 PO alternating with 137 mcg every other day LEVOTHYROXINE SODIUM 70779973173 No Longer Active Tressa Stephens OXYCODONE HCL 10 MG TABS 2 PO Q4hrs prn OXYCODONE HCL 10004237105 Active Carlyn Marks OXYCONTIN 20 MG [id number] 1 PO Q12hrs scheduled OXYCODONE HCL 41388589803 No Longer Active Tressa Stephens COREG 12.5 MG TABS 1 PO BID for Blood pressure (on hold 04/30) CARVEDILOL 04640615569 No Longer Active Tressa Stephens DAGOBERTO 180 MG TABS 1 PO QD FEXOFENADINE HCL Active Tressaino Stephens ZOCOR 20 MG TAB 1 PO daily SIMVASTATIN 92213788425 Active Tressaino Stephens MIRALAX POWD 1 scoop in 4oz of water PO BID POLYETHYLENE GLYCOL 3350 22719200296 Active Susanna Bruno DARVOCET-N 100 100-650 MG TAB 1 PO Q6hrs prn pain PROPOXYPHENE N-APAP 52932425945 No Longer Active Tressa Danica LAW'Wero NASAL SPRAY (DEXAMETHASONE, GENTAMICIN, SALINE) 2 puffs each nostril TID x [address] MYERS NASAL SPRAY ( DEXAMETHASONE, GENTAMICIN, SALINE) No Longer Active Tressa Danica Stephens SINEMET 25-100 MG TABS 1 po TID CARBIDOPA-LEVODOPA 88132965836 Active Tressa Danica Stephens BENADRYL 25 MG CAP 1 PO Q6hrs prn itching DIPHENHYDRAMINE HCL 80995188816 No Longer Active Tressa Danica Stephens NEXIUM 40 MG CPDR 1 PO daily ESOMEPRAZOLE MAGNESIUM 32542949968 Active Tressa Danica Stephens K-PHOS TABS 1 po BID POTASSIUM PHOSPHATE MONOBASIC TABS 30337899586 No Longer Active Tressa Danica Stephens MICARDIS 80 MG TABS 1 po daily TELMISARTAN 68964425311 Active Tressa Danica Stephens MULTIVITAMINS TABS 1 PO QD MULTIPLE VITAMIN 39076148599 No Longer Active Tressaino Stephens LANTUS SOLOSTAR 100 UNIT/ML SOLN 40 units SQ QHS INSULIN GLARGINE 26166413339 Active Tressa Danica Stephens PATANOL 0.1 % SOLN 2 drops in each eye BID prn OLOPATADINE HCL 01646136568 No Longer Active Tressa Danica Stephens FISH OIL 1000 MG CAPS 2 tabs po TID OMEGA-3 FATTY ACIDS 79758711005 No Longer Active Tressa Danica Stephens PREMARIN 1.25 MG TAB 1 PO daily ESTROGENS CONJUGATED 57401239285 Active Tressa Danica Stephens PEN NEEDLES 1/2" 29G X 12MM MISC as directed on the Lantus Pen INSULIN PEN NEEDLE 77809695377 No Longer Active Tressa Danica Stephens BD INSULIN SYRINGE ULTRAFINE 29G X 1/2" 1 ML MISC as directed DX: Diabetes INSULIN SYRINGE-NEEDLE U-100 69725089735 No Longer Active Tressa Danica Stephens LOVAZA 1 GM CAPS 2 po BID [id number] ETHYL ESTERS 30636651570 Active Tressa Danica Stephens PREDNISONE 10 MG TAB 1 PO daily PREDNISONE 15261341477 No Longer Active Tressa Danica Stephens ALPRAZOLAM 0.25 MG TABS 1/2 to 1 tab po q 8 hrs prn anxiety 07/24 ALPRAZOLAM 44559422766 No Longer Active Tressa Danica Stephens TRANXENE-T 7.5 MG TABS 1 po BID prn CLORAZEPATE DIPOTASSIUM 21579129467 Active Tressa Danica Stephens ZESTRIL 20 MG TABS 1 po daily LISINOPRIL 91964520606 No Longer Active Tressa Danica Stephens MUCINEX 600 MG [id number] 1 po TID GUAIFENESIN 94948484746 Active Tressa Danica Stephens DARVOCET-N 100 100-650 MG TAB 1 PO Q6hrs prn pain PROPOXYPHENE N-APAP 30928843253 No Longer Active Tressa Danica Stephens METANX 2.8-25-2 MG TABS 1 PO daily [id number] 22805876239 No Longer Active Tressa Danica Stephens SINEMET 25-100 MG TABS 2 PO BID prn CARBIDOPA-LEVODOPA 40955851390 No Longer Active Tressa Danica Stephens LOVAZA 1 GM CAPS 2 po BID [id number] ETHYL ESTERS 10317527426 No Longer Active Tressa Danica Stephens LORTAB 10 TABS 1 po q 4 hrs prn pain HYDROCODONE- ACETAMINOPHEN TABS 02546476521 No Longer Active Tressa Danica Stephens CALCIUM 600 + D 600-200 MG-UNIT TABS 1 po daily CALCIUM CARBONATE-VITAMIN D 20201186666 Active Tressa Danica Stephens VITAMIN C 500 MG TABS 1 po BID ASCORBIC ACID 55837704901 Active Tressa Danica Stephens CLORAZEPATE DIPOTASSIUM 3.75 MG TABS 1 tab 2 times daily prn CLORAZEPATE DIPOTASSIUM 25779480394 No Longer Active Tressa Danica Stephens PRILOSEC 20 MG CAP CR 1 PO QD OMEPRAZOLE 56215856940 No Longer Active Tressa Daniac Stephens PREMARIN 1.25 MG TABS 1 po daily ESTROGENS CONJUGATED 33857245408 No Longer Active Tressa Danica Stephens LIPITOR 20 MG TABS 1 po daily ATORVASTATIN CALCIUM 02743587309 No Longer Active Tressa Danica Stephens CLONIDINE HCL 0.1 MG TAB 1 po BID CLONIDINE HCL 05566292847 No Longer Active Tressa Danica Stephens ACCURETIC 20-12.5 MG TABS 2 PO QAM QUINAPRIL- HYDROCHLOROTHIAZIDE 90687885199 No Longer Active Tressa Danica Stephens MICARDIS 80 MG TABS 1 PO QPM TELMISARTAN 71174558648 No Longer Active Tressa Danica Stephens GLUCOVANCE 5-500 MG TABS 1 tab po BID GLYBURIDE-METFORMIN 22307184770 No Longer Active Tressa Danica Stephens LEVEMIR 100 UNIT/ML SOLN 40 units at HS INSULIN DETEMIR 90031353550 No Longer Active Tressa Danica Stephens TAMIFLU 75 MG CAPS 1 PO daily for 10 days OSELTAMIVIR PHOSPHATE 50668969239 No Longer Active Matthieu Sonya PREDNISONE 10 MG TABS 1 PO Daily PREDNISONE 63645642799 No Longer Active Tressa Danica Stephens LANTUS 100 UNIT/ML SOLN (INSULIN GLARGINE) PEN Take 32 units SQ QHS LANTUS 100 UNIT/ML SOLN (INSULIN GLARGINE) PEN No Longer Active Tressa Stephens CEFTIN 250 MG TABS 1 PO BID CEFUROXIME AXETIL 22395143682 No Longer Active Tressa Danica LAW'S NASAL SPRAY (DEXAMETHASONE, GENTAMICIN, SALINE) 2 puffs each nostril TID for [address] MYERS NASAL SPRAY ( DEXAMETHASONE, GENTAMICIN, SALINE) No Longer Active Tressa Danica Stephens ATROVENT 0.06 % SOLN 2 puffs each nostril TID prn runny nose and sinus drainage IPRATROPIUM BROMIDE 79535995878 No Longer Active Tressa Danica Stephens MUCINEX DM 30-600 MG TB12 1 PO Q12hrs DEXTROMETHORPHAN- GUAIFENESIN 81055243019 No Longer Active Tressaino Stephens ADVAIR DISKUS 100-50 MCG/DOSE MISC 1 puff BID FLUTICASONE-SALMETEROL 85515716096 No Longer Active Tressaino Stephens ROBITUSSIN A-C 10-100 MG/5ML SYRUP 1 teaspoon PO Q 4-6 hr prn ROBITUSSIN A-C 10-100 MG/5ML SYRUP 10910551827 No Longer Active Tressa Danica Stephens TESSALON 200 MG CAPS 1 PO TID prn cough BENZONATATE 71382727316 No Longer Active Bhumi Merando ROBITUSSIN A-C 10-100 MG/5ML SYRUP 1 teaspoon PO Q 4-6 hr prn ROBITUSSIN A-C 10-100 MG/5ML SYRUP 05117009024 No Longer Active Bhumi Merando DARVOCET-N 100 100-650 MG TABS 1 po q 4 hrs. prn PROPOXYPHENE N-APAP 63855231391 No Longer Active Tressa Danica Stephens SALSALATE 750 MG TABS 1 po QID prn SALSALATE 55966977945 No Longer Active Tressa Danica Stephens DAGOBERTO 180 MG TABS 1 PO QD FEXOFENADINE HCL 15543764188 No Longer Active Tressa Danica LAW'Wero NASAL SPRAY (DEXAMETHASONE, GENTAMICIN, SALINE) 2 puffs each nostril TID DR. MYERS NASAL SPRAY (DEXAMETHASONE, GENTAMICIN, SALINE) No Longer Active Tressaino Stephens AMOXICILLIN 500 MG CAP 1 PO TID AMOXICILLIN 87181722671 No Longer Active Tressa Danica Stephens AVANDIA 8 MG TABS 1 po daily ROSIGLITAZONE MALEATE 59922928619 No Longer Active Tressa Danica Stephens DICLOFENAC POTASSIUM 50 MG TABS 1 po TID DICLOFENAC POTASSIUM 49164906070 No Longer Active Tressa Danica Stephens DAGOBERTO 180 MG TABS 1 PO QD FEXOFENADINE HCL 74120056481 No Longer Active Tressa Danica Stephens DRIXORAL 6-120 MG TB12 1 sparingly DEXBROMPHENIRAMINE -PSEUDOEPH 87266999958 No Longer Active Tressa Danica Stephens TOY PLUS EXTRA STRENGTH 500 MG TABS 1 PO daily ASPIRIN BUFFERED 59211666486 No Longer Active Tressa Danica Stephens DETROL LA 4 MG CP24 1 PO daily TOLTERODINE TARTRATE 24589525107 Active Tressa Danica Stephens B-D U/F PEN NEEDLE 31G X 8 MM MISC 1 PO daily Dx: DM Type II INSULIN PEN NEEDLE 95694248468 Active Tressa Danica Stephens OMACOR 1 PO daily OMACOR No Longer Active Tressa Danica Stephens [employer] STRIPS STRP as directed TID Dx: DM Type II GLUCOSE BLOOD 64716839106 Active Narayan Fortune LOVENOX 40 MG/0.4ML SOLN 1 injection daily. Begin Friday05/03/05. ENOXAPARIN SODIUM 16214956618 No Longer Active Tressa Stephens FLUVIRIN INJ done at health dept INFLUENZA VAC TYP A& B SURF ANT 62263584801 No Longer Active Tressa Stephens PNEUMOVAX 23 25 MCG/0.5ML INJ done from health dept PNEUMOCOCCAL VAC POLYVALENT 02886236555 No Longer Active Tressa Stephens MUCINEX 600 MG TB12 1 PO Q12hrs GUAIFENESIN 52334457117 No Longer Active Tressa Stephens HUMALOG MIX 75/25 75-25 % SUSP 26 units in am, 19 units in pm INSULIN LISP & LISP PROT (HUM) 36928350347 No Longer Active Tressa Stephens MULTIVITAMINS TABS 1 po daily MULTIPLE VITAMIN 06470171775 Active Tressa Stephens NEXIUM 40 MG CPDR 1 po daily ESOMEPRAZOLE MAGNESIUM 76440400985 No Longer Active Tressa Stephens NORVASC 10 MG TABS 1 po daily AMLODIPINE BESYLATE 32121006940 Active Tressa Stephens Immunizations Vaccine Administration Date [...] % Encounters Code Encounter Date Provider Facility CPT-13679 Ofc Vst, Est Level IV 17:19:02 FOOD TECHNOLOGIST Tressa Stephens DO, FACP CPT-97463 Ofc Vst, Est Level IV 16:15:30 FOOD TECHNOLOGIST Tressa Stephens DO, FACP CPT-32091 Ofc Vst, Est Level IV 17:12:11 FOOD TECHNOLOGIST Tressa Stephens DO, FACP CPT-22751 Ofc Vst, Est Level IV 16:52:17 FOOD TECHNOLOGIST Tressa Danica Stephens Tressa S Stephens, DO, FACP CPT-86213 Ofc Vst, Est Level III 16:30:23 CDT Tressa Danica Conteh Stephens, DO, FACP CPT-63433 Ofc Vst, Est Level III 17:01:51 CDT Tressa Danica Conteh Stephens, DO, FACP CPT-02879 Ofc Vst, Est Level IV 17:35:57 CDT Tressa Danica Conteh Stephens, DO, FACP CPT-88636 Ofc Vst, Est Level III 12:47:22 CDT Tressa Danica Conteh Stephens, DO, FACP CPT-96965 Ofc Vst, Est Level IV 13:16:37 CDT Tressa Danica Conteh Stephens, DO, FACP CPT-51547 Ofc Vst, Est Level III 21:22:47 CDT Tressa Danica Conteh Stephens, DO, FACP CPT-10761 Ofc Vst, Est Level III 20:42:44 FOOD TECHNOLOGIST Tressa Danica Conteh Stephens, DO, FACP CPT-20097 Ofc Vst, Est Level III 13:42:40 FOOD TECHNOLOGIST Tressa Danica Conteh Stephens, DO, FACP CPT-90318 Ofc Vst, Est Level IV 12:48:28 FOOD TECHNOLOGIST Tressa Danica Conteh Stephens, DO, FACP CPT-76058 Ofc Vst, Est Level III 15:04:48 CDT Tressa Danica Conteh Stephens, DO, FACP CPT-97465 Ofc Vst, Est Level IV 17:19:18 CDT Tressa Danica Bustillos S Stephens, DO, FACP CPT-43613 Ofc Vst, Est Level III 09:04:25 CDT Tressa Danica Conteh Kat, DO, FACP CPT-93640 Ofc Vst, Est Level III 16:10:44 CDT Tressa Danica Conteh Stephens, DO, FACP CPT-49055 Ofc Vst, Est Level IV 20:58:16 FOOD TECHNOLOGIST Tressa Danica Conteh Stephens, DO, FACP CPT-03919 Ofc Vst, Est Level IV 10:28:49 FOOD TECHNOLOGIST Tressa Danica Conteh Stephens, DO, FACP CPT-21450 Ofc Vst, Est Level III 14:30:37 FOOD TECHNOLOGIST Tressa Danica Conteh Stephens, DO, FACP CPT-13426 Ofc Vst, Est Level IV 11:15:48 CDT Tressa Danica Conteh Kat, DO, FACP CPT-87394 Ofc Vst, Est Level IV 11:15:33 CDT Tressa Danica Conteh Kat, DO, FACP CPT-17129 Ofc Vst, Est Level IV 11:30:32 CDT Tressa Danica Conteh Stephens, DO, FACP CPT-76575 Ofc Vst, Est Level IV 11:44:55 CDT Tressa Danica Conteh Kat, DO, FACP CPT-02513 Ofc Vst, Est Level IV 14:27:05 CDT Tressaino Conteh Kat, DO, FACP CPT-17737 Ofc Vst, Est Level V 14:28:06 FOOD TECHNOLOGIST Tressa Danica Conteh Stephens, DO, FACP CPT-84443 Ofc Vst, Est Level IV 12:03:43 FOOD TECHNOLOGIST Tressa Bustillos S Kat, DO, FACP CPT-95780 Ofc Vst, Est Level V 15:06:48 FOOD TECHNOLOGIST Tressa Conteh Kat, DO, FACP CPT-06501 Ofc Vst, Est Level III 15:36:23 FOOD TECHNOLOGIST Tressa Conteh Stephens, DO, FACP CPT-03519 Ofc Vst, Est Level V 15:39:00 CDT Tressa Danica Conteh Stephens, DO, FACP CPT-08999 Ofc Vst, Est Level V 14:02:35 CDT Tressaino Conteh Stephens, DO, FACP CPT-34734 Ofc Vst, Est Level III 15:00:21 CDT Tressaino Conteh Stephens, DO, FACP CPT-22619 Ofc Vst, Est Level IV 13:45:16 CDT Tressa Danica Conteh Stephens, DO, FACP CPT-97726 Ofc Vst, Est Level IV 14:31:48 CDT Tressaino Conteh Kat, DO, FACP CPT-15920 Ofc Vst, Est Level IV 11:14:51 CDT Tressaino Conteh Kat, DO, FACP CPT-19368 Ofc Vst, Est Level IV 14:36:19 CDT Tressaino Conteh Stephens, DO, FACP CPT-68544 Ofc Vst, Est Level IV 15:56:12 FOOD TECHNOLOGIST Tressa Conteh Kat, DO, FACP CPT-16291 Ofc Vst, Est Level IV 11:37:02 CDT Tressaino Conteh Stephens, DO, FACP CPT-65039 Ofc Vst, Est Level III 11:05:27 CDT Tressa Danica Conteh Stephens, DO, FACP CPT-45796 Ofc Vst, Est Level IV 12:12:37 CDT Tressaino Conteh Stephens, DO, FACP CPT-57537 Ofc Vst, Est Level IV 11:55:51 CDT Tressaino Conteh Stephens, DO, FACP CPT-80830 Ofc Vst, Est Level V 13:46:43 CDT Tressa Danica Conteh Stephens, DO, FACP CPT-87080 Ofc Vst, Est Level IV 14:23:36 CDT Tressa Danica Conteh Stephens, DO, FACP CPT-44352 Ofc Vst, Est Level III 14:59:12 CDT Tressa Danica Conteh Stephens, DO, FACP CPT-49510 Ofc Vst, Est Level IV 16:01:19 CDT Tressa Danica Conteh Kat, DO, FACP CPT-82302 Ofc Vst, Est Level IV 15:21:33 FOOD TECHNOLOGIST Tressa Conteh Kat, DO, FACP CPT-20498 Ofc Vst, Est Level IV 10:21:01 FOOD TECHNOLOGIST Tressa Conteh Kat, DO, FACP CPT-84945 Ofc Vst, Est Level V 12:53:03 FOOD TECHNOLOGIST Tressa Conteh Kat, DO, FACP CPT-72457 Ofc Vst, Est Level IV 10:54:43 CDT Tressa Conteh Kat, DO, FACP CPT-87092 Ofc Vst, Est Level V 10:18:33 CDT Tressaino Conteh Kat, DO, FACP CPT-64043 Ofc Vst, Est Level V 14:14:31 CDT Tressa Danica Conteh Kat, DO, FACP CPT-80327 Ofc Vst, Est Level IV 12:25:33 CDT Tressa Conteh Kat, DO, FACP CPT-60211 Ofc Vst, Est Level IV 15:27:17 CDT Tressa Danica Conteh Kat, DO, FACP CPT-70423 Ofc Vst, Est Level IV 14:47:24 CDT Tressa Danica Conteh Kat, DO, FACP CPT-10507 Ofc Vst, Est Level V 15:19:25 CDT Tressa Danica [facility] CPT-09118 Ofc Vst, Est Level V 11:41:37 CDT Tressa Danica Conteh Stephens, DO, FACP CPT-19174 Ofc Vst, Est Level V 11:12:22 CDT Tressa Danica Conteh Kat, DO, FACP CPT-17516 Ofc Vst, Est Level IV 14:51:16 FOOD TECHNOLOGIST Tressa Conteh Kat, DO, FACP CPT-42534 Ofc Vst, Est Level IV 11:31:20 FOOD TECHNOLOGIST Tressa Danica Conteh Kat, DO, FACP CPT-96126 Ofc Vst, Est Level IV 10:35:51 FOOD TECHNOLOGIST Tressa Conteh Kat, DO, FACP CPT-46682 Ofc Vst, Est Level IV 11:46:27 FOOD TECHNOLOGIST Tressa Conteh Kat, DO, FACP CPT-91136 Ofc Vst, Est Level IV 09:34:16 FOOD TECHNOLOGIST Tressa Conteh Kat, DO, FACP CPT-90982 Ofc Vst, Est Level V 11:34:06 FOOD TECHNOLOGIST Tressa Conteh Kat, DO, FACP CPT-07949 Ofc Vst, Est Level IV 13:57:23 CDT Tressa Danica Bustillos S Kat, DO, FACP CPT-75083 Ofc Vst, Est Level IV 12:34:42 CDT Tressa Danica Conteh Kat, DO, FACP CPT-49500 Ofc Vst, Est Level IV 10:18:20 CDT Tressa Stephens, DO, FACP CPT-30192 Ofc Vst, Est Level IV 10:10:02 FOOD TECHNOLOGIST Tressa Davisanne Kat Stephens, DO, FACP CPT-64408 Ofc Vst, Est Level IV 15:36:41 FOOD TECHNOLOGIST Tressa Stephens, DO, FACP CPT-61314 Ofc Vst, Est Level III 10:41:26 FOOD TECHNOLOGIST Tressa Danica Kat Stephens, DO, FACP CPT-72616 Ofc Vst, Est Level IV 13:29:32 CDT Tressa Stephens, DO, FACP CPT-61043 Ofc Vst, Est Level IV 10:30:12 CDT Tressa Stephens [facility] CPT-33005 Ofc Vst, Est Level IV 11:11:37 FOOD TECHNOLOGIST Tressa Stephens [facility] [place] CPT-53816 Ofc Vst, Est Level IV 11:06:40 FOOD TECHNOLOGIST Tressa Stephens [facility] [place] CPT-69380 Ofc Vst, Est Level IV 12:01:[address] [facility] [place] CPT-35481 Ofc Vst, Est Level IV 11:43:30 CDT Tressa Stephens [facility] [place] CPT-18267 Ofc Vst, Est Level IV 14:22:04 CDT Tressa Stephens [facility] [place] CPT-05544 Ofc Vst, Est Level IV 13:59:46 CDT Tressa Stephens [facility] [place] CPT-97094 Ofc Vst, Est Level IV 14:02:19 FOOD TECHNOLOGIST Tressa Stephens [facility] [place] CPT-72538 Ofc Vst, Est Level IV 15:07:12 FOOD TECHNOLOGIST Tressa Stephens [facility] [place] CPT-78395 Ofc Vst, Est Level IV 15:11:06 FOOD TECHNOLOGIST Tressa Davisanndre JorgensenStephens [facility] [place] CPT-30889 Ofc Vst, Est Level IV 15:30:27 FOOD TECHNOLOGIST Tressa Jorgensenner [facility] [place] CPT-95230 Ofc Vst, Est Level IV 11:04:18 FOOD TECHNOLOGIST Tressa Davisanndre JorgensenStephens [facility] [place] CPT-46911 Ofc Vst, Est Level IV 13:50:55 FOOD TECHNOLOGIST Tressa Davisanndre JorgensenStephens [facility] [place] CPT-49486 Ofc Vst, Est Level IV 16:27:[address] [facility] [place] CPT-53639 Ofc Vst, Est Level IV 14:19:[address] [facility] [place] CPT-52254 Ofc Vst, New Level IV 14:53:27 CDT Tressa Davisanndre JorgensenStephens [facility] [place] Procedures Code Procedure Name Date Entry Date Standard Description CPT-G0439 Medicare Annual Wellness Visit 17:05:42 FOOD TECHNOLOGIST CPT-G8446 E-Prescribing not done due to controlled substance 21:22 :47 CDT CPT-G8446 E-Prescribing not done due to controlled substance 20:42 :44 FOOD TECHNOLOGIST CPT-G8445 E-Prescribing Not sent due to no medication given 13:42: 40 FOOD TECHNOLOGIST CPT-G8445 E-Prescribing Not sent due to no medication given 12:48: 28 FOOD TECHNOLOGIST CPT-G8445 E-Prescribing Not sent due to no medication given 21:29: 51 FOOD TECHNOLOGIST CPT-G0439 Medicare Annual Wellness Visit 21:29:51 FOOD TECHNOLOGIST CPT-G8443 E-Prescribing Medication Sent 15:04:48 CDT CPT-G8446 E-Prescribing not done due to controlled substance 17:19 :18 CDT CPT-G8446 E-Prescribing not done due to controlled substance 09:04 :25 CDT CPT-G8445 E-Prescribing Not sent due to no medication given 16:10: 44 CDT CPT-G8445 E-Prescribing Not sent due to no medication given 20:58: 16 FOOD TECHNOLOGIST CPT-G8446 E-Prescribing not done due to controlled substance 10:28 :49 FOOD TECHNOLOGIST CPT-G8443 E-Prescribing Medication Sent 14:30:37 FOOD TECHNOLOGIST CPT-G8446 E-Prescribing not done due to controlled substance 15:30 :57 CDT CPT-G0438 Medicare Annual Wellness Visit Initial 15:30:57 CDT CPT-61423 Injection, Pneumovax 11:37:02 CDT CPT-8445 E-Prescribing Not sent due to no medication given 15:19: 25 CDT CPT-8445 E-Prescribing Not sent due to no medication given 11:41: 37 CDT CPT-44527 Influenza Vaccine 10:38:35 FOOD TECHNOLOGIST CPT-G0008 Administration Influenza Vaccine 10:38:35 FOOD TECHNOLOGIST CPT-17542 Influenza Vaccine 10:03:07 CDT CPT-G0008 Administration Influenza Vaccine 10:03:07 CDT
--- OUTSIDE RECORDS SUMMARY | 2018-04-13 06:42 | XMS REPORT | Clinical Summary ---
Author Author User, ALEXANDREA Organization [facility] Address Unknown Phone Unavailable Allergies, Adverse Reactions, [...] and colitis ENCEPHALOPATHY, UNSPECIFIED 348.30 Resolved Tressa Stephnes Encephalopathy, unspecified COLONIC POLYPS 211.3 Resolved Tressa [...] TABS 1 PO TID prn HYDROXYZINE HCL 98089318429 No Longer Active Tressa Stephens VALIUM 2 MG TAB 1-2 PO before MRI procedure DIAZEPAM 73111092542 No Longer Active Tressa Stephens OXYCONTIN 20 MG [id number] 1 PO Q 12hrs scheduled OXYCODONE HCL No Longer Active Tressa Stephens HUMALOG KWIKPEN 100 UNIT/ML SOPN 12 units before each meal INSULIN LISPRO (HUMAN) 77749689954 Active Tressa Stephens PREDNISONE 20 MG TAB 3 PO at one time daily PREDNISONE 63203075892 No Longer Active Tressa Danica Stephens ZOSTAVAX 85504 UNT/0.65ML SOLR 1 injection once to prevent Shingles ZOSTER VACCINE LIVE 18773130358 No Longer Active Tressaino Stephens VOLTAREN 1 % GEL Apply to affected area twice daily prn pain. DICLOFENAC SODIUM 02284898506 No Longer Active Tressa Danica Stephens ASTEPRO 0.15 % SOLN 1 puff each nostril TID AZELASTINE HCL 59771132598 No Longer Active Tressa Danica Stephens CELEXA 20 MG TABS 1 PO daily CITALOPRAM HYDROBROMIDE 86611458384 No Longer Active Tressa Danica Stephens KEFLEX 500 MG CAP 1 PO TID for 7 days CEPHALEXIN 49432553092 No Longer Active Carlyn Marks SYNTHROID 150 MCG TABS 1 PO Daily LEVOTHYROXINE SODIUM 06060222456 Active Carlyn Marks NEURONTIN 300 MG CAP 1-2 PO BID GABAPENTIN 17543891866 Active Tressaino ACEVEDO ODT 8 MG TBDP 1 po q 6hrs prn nausea ONDANSETRON 43714785626 No Longer Active Tressaino Stephens CARAFATE 1 GM TABS 1 PO 30 minutes before meals and at bedtime SUCRALFATE 64899650689 No Longer Active Tressa Danica Stephens SYNTHROID 150 MCG TABS 1 PO every other day alternating with 137mcg LEVOTHYROXINE SODIUM 12147118673 No Longer Active Tressaino Stephens INDOMETHACIN 50 MG CAPS 1 PO TID for 5 days INDOMETHACIN 91962152887 No Longer Active Tressaino Stephens PREDNISONE 5 MG TABS 2 Po daily for 2 weeks and then change to 1 PO daily for 2 weeks. PREDNISONE 47861783482 No Longer Active Tressa Stephens XANAX 0.25 MG TABS 1-2 PO Q6hrs prn ALPRAZOLAM 23110697784 Active Tressaino Stephens LASIX 20 MG TAB 1 PO BID prn swelling FUROSEMIDE 23480786023 Active Tressaino Stephens K-DUR 20 MEQ TAB CR 1 PO daily POTASSIUM CHLORIDE Active Tressaino Stephens PREDNISONE 20 MG TAB 1 PO daily PREDNISONE 15492977198 No Longer Active Tressa Stephens FLUDROCORTISONE ACETATE 0.1 MG TABS 1 PO daily FLUDROCORTISONE ACETATE 56304528934 No Longer Active Tressa Stephens ACCURETIC 20-12.5 MG TABS 1 PO daily QUINAPRIL- HYDROCHLOROTHIAZIDE 64204789169 No Longer Active Tressa Stephens SYNTHROID 150 MCG TABS 1 PO alternating with 137 mcg every other day LEVOTHYROXINE SODIUM 51567146351 No Longer Active Tressa Stephens OXYCODONE HCL 10 MG TABS 2 PO Q4hrs prn OXYCODONE HCL 83660334949 Active Carlyn Marks OXYCONTIN 20 MG [id number] 1 PO Q12hrs scheduled OXYCODONE HCL 65625156462 No Longer Active Tressa Stephens COREG 12.5 MG TABS 1 PO BID for Blood pressure (on hold 04/30) CARVEDILOL 67814816484 No Longer Active Tressa Stephens DAGOBERTO 180 MG TABS 1 PO QD FEXOFENADINE HCL Active Tressaino Stephens ZOCOR 20 MG TAB 1 PO daily SIMVASTATIN 62829349440 Active Tressaino Stephens MIRALAX POWD 1 scoop in 4oz of water PO BID POLYETHYLENE GLYCOL 3350 48776894127 Active Susanna Bruno DARVOCET-N 100 100-650 MG TAB 1 PO Q6hrs prn pain PROPOXYPHENE N-APAP 00279975954 No Longer Active Tressa Dancia LAW'Wero NASAL SPRAY (DEXAMETHASONE, GENTAMICIN, SALINE) 2 puffs each nostril TID x [address] MYERS NASAL SPRAY ( DEXAMETHASONE, GENTAMICIN, SALINE) No Longer Active Tressa Danica Stephens SINEMET 25-100 MG TABS 1 po TID CARBIDOPA-LEVODOPA 63032866879 Active Tressa Danica Stephens BENADRYL 25 MG CAP 1 PO Q6hrs prn itching DIPHENHYDRAMINE HCL 15749289233 No Longer Active Tressa Danica Stephens NEXIUM 40 MG CPDR 1 PO daily ESOMEPRAZOLE MAGNESIUM 96102619301 Active Tressa Danica Stephens K-PHOS TABS 1 po BID POTASSIUM PHOSPHATE MONOBASIC TABS 65082601937 No Longer Active Tressa Danica Stephens MICARDIS 80 MG TABS 1 po daily TELMISARTAN 96274363776 Active Tressa Danica Stephens MULTIVITAMINS TABS 1 PO QD MULTIPLE VITAMIN 03478566609 No Longer Active Tressaino Stephens LANTUS SOLOSTAR 100 UNIT/ML SOLN 40 units SQ QHS INSULIN GLARGINE 60073968085 Active Tressa Danica Stephens PATANOL 0.1 % SOLN 2 drops in each eye BID prn OLOPATADINE HCL 04719184626 No Longer Active Tressa Danica Stephens FISH OIL 1000 MG CAPS 2 tabs po TID OMEGA-3 FATTY ACIDS 04259662943 No Longer Active Tressa Danica Stephens PREMARIN 1.25 MG TAB 1 PO daily ESTROGENS CONJUGATED 21839917611 Active Tressa Danica Stephens PEN NEEDLES 1/2" 29G X 12MM MISC as directed on the Lantus Pen INSULIN PEN NEEDLE 78054556719 No Longer Active Tressa Danica Stephens BD INSULIN SYRINGE ULTRAFINE 29G X 1/2" 1 ML MISC as directed DX: Diabetes INSULIN SYRINGE-NEEDLE U-100 15768151831 No Longer Active Tressa Danica Stephens LOVAZA 1 GM CAPS 2 po BID [id number] ETHYL ESTERS 46241026072 Active Tressa Danica Stephens PREDNISONE 10 MG TAB 1 PO daily PREDNISONE 12327228854 No Longer Active Tressa Danica Stephens ALPRAZOLAM 0.25 MG TABS 1/2 to 1 tab po q 8 hrs prn anxiety 07/24 ALPRAZOLAM 99979361456 No Longer Active Tressa Danica Stephens TRANXENE-T 7.5 MG TABS 1 po BID prn CLORAZEPATE DIPOTASSIUM 47042482448 Active Tressa Danica Stephens ZESTRIL 20 MG TABS 1 po daily LISINOPRIL 96532936889 No Longer Active Tressa Danica Stephens MUCINEX 600 MG [id number] 1 po TID GUAIFENESIN 20392401784 Active Tressa Danica Stephens DARVOCET-N 100 100-650 MG TAB 1 PO Q6hrs prn pain PROPOXYPHENE N-APAP 21132984428 No Longer Active Tressa Danica Stephens METANX 2.8-25-2 MG TABS 1 PO daily [id number] 70412029524 No Longer Active Tressa Danica Stephens SINEMET 25-100 MG TABS 2 PO BID prn CARBIDOPA-LEVODOPA 57733283707 No Longer Active Tressa Danica Stephens LOVAZA 1 GM CAPS 2 po BID [id number] ETHYL ESTERS 44744087458 No Longer Active Tressa Danica Stephens LORTAB 10 TABS 1 po q 4 hrs prn pain HYDROCODONE- ACETAMINOPHEN TABS 75861772380 No Longer Active Tressa Danica Stephens CALCIUM 600 + D 600-200 MG-UNIT TABS 1 po daily CALCIUM CARBONATE-VITAMIN D 53481981730 Active Tressa Danica Stephens VITAMIN C 500 MG TABS 1 po BID ASCORBIC ACID 80774871072 Active Tressa Danica Stephens CLORAZEPATE DIPOTASSIUM 3.75 MG TABS 1 tab 2 times daily prn CLORAZEPATE DIPOTASSIUM 58522248010 No Longer Active Tressa Danica Stephens PRILOSEC 20 MG CAP CR 1 PO QD OMEPRAZOLE 52942253769 No Longer Active Tressa Danica Stephens PREMARIN 1.25 MG TABS 1 po daily ESTROGENS CONJUGATED 64265929289 No Longer Active Tressa Danica Stephens LIPITOR 20 MG TABS 1 po daily ATORVASTATIN CALCIUM 42407126943 No Longer Active Tressa Danica Stephens CLONIDINE HCL 0.1 MG TAB 1 po BID CLONIDINE HCL 95810112625 No Longer Active Tressa Danica Stephens ACCURETIC 20-12.5 MG TABS 2 PO QAM QUINAPRIL- HYDROCHLOROTHIAZIDE 68603166993 No Longer Active Tressa Danica Stephens MICARDIS 80 MG TABS 1 PO QPM TELMISARTAN 02991891497 No Longer Active Tressa Danica Stephens GLUCOVANCE 5-500 MG TABS 1 tab po BID GLYBURIDE-METFORMIN 04523157561 No Longer Active Tressa Danica Stephens LEVEMIR 100 UNIT/ML SOLN 40 units at HS INSULIN DETEMIR 88026286753 No Longer Active Tressa Danica Stephens TAMIFLU 75 MG CAPS 1 PO daily for 10 days OSELTAMIVIR PHOSPHATE 22173551175 No Longer Active Matthieu Sonya PREDNISONE 10 MG TABS 1 PO Daily PREDNISONE 69749245581 No Longer Active Tressa Danica Stephens LANTUS 100 UNIT/ML SOLN (INSULIN GLARGINE) PEN Take 32 units SQ QHS LANTUS 100 UNIT/ML SOLN (INSULIN GLARGINE) PEN No Longer Active Tressa Stephens CEFTIN 250 MG TABS 1 PO BID CEFUROXIME AXETIL 36826298468 No Longer Active Tressa Danica LAW'S NASAL SPRAY (DEXAMETHASONE, GENTAMICIN, SALINE) 2 puffs each nostril TID for [address] MYERS NASAL SPRAY ( DEXAMETHASONE, GENTAMICIN, SALINE) No Longer Active Tressa Danica Stephens ATROVENT 0.06 % SOLN 2 puffs each nostril TID prn runny nose and sinus drainage IPRATROPIUM BROMIDE 37586015119 No Longer Active Tressa Danica Stephens MUCINEX DM 30-600 MG TB12 1 PO Q12hrs DEXTROMETHORPHAN- GUAIFENESIN 21589763854 No Longer Active Tressaino Stephens ADVAIR DISKUS 100-50 MCG/DOSE MISC 1 puff BID FLUTICASONE-SALMETEROL 98480158043 No Longer Active Tressaino Stephens ROBITUSSIN A-C 10-100 MG/5ML SYRUP 1 teaspoon PO Q 4-6 hr prn ROBITUSSIN A-C 10-100 MG/5ML SYRUP 58846238206 No Longer Active Tressa Danica Stephens TESSALON 200 MG CAPS 1 PO TID prn cough BENZONATATE 77286951626 No Longer Active Bhumi Merando ROBITUSSIN A-C 10-100 MG/5ML SYRUP 1 teaspoon PO Q 4-6 hr prn ROBITUSSIN A-C 10-100 MG/5ML SYRUP 58390701622 No Longer Active Bhumi Merando DARVOCET-N 100 100-650 MG TABS 1 po q 4 hrs. prn PROPOXYPHENE N-APAP 36007718370 No Longer Active Tressa Danica Stephens SALSALATE 750 MG TABS 1 po QID prn SALSALATE 62015140227 No Longer Active Tressa Danica Stephens DAGOBERTO 180 MG TABS 1 PO QD FEXOFENADINE HCL 40447607014 No Longer Active Tressa Danica LAW'Wero NASAL SPRAY (DEXAMETHASONE, GENTAMICIN, SALINE) 2 puffs each nostril TID DR. MYERS NASAL SPRAY (DEXAMETHASONE, GENTAMICIN, SALINE) No Longer Active Tressaino Stephens AMOXICILLIN 500 MG CAP 1 PO TID AMOXICILLIN 31571619782 No Longer Active Tressa Danica Stephens AVANDIA 8 MG TABS 1 po daily ROSIGLITAZONE MALEATE 14670816993 No Longer Active Tressa Danica Stephens DICLOFENAC POTASSIUM 50 MG TABS 1 po TID DICLOFENAC POTASSIUM 89482429441 No Longer Active Tressa Danica Stephens DAGOBERTO 180 MG TABS 1 PO QD FEXOFENADINE HCL 84268553667 No Longer Active Tressa Danica Stephens DRIXORAL 6-120 MG TB12 1 sparingly DEXBROMPHENIRAMINE -PSEUDOEPH 42109600200 No Longer Active Tressa Danica Stephens TOY PLUS EXTRA STRENGTH 500 MG TABS 1 PO daily ASPIRIN BUFFERED 73539923948 No Longer Active Tressa Danica Stephens DETROL LA 4 MG CP24 1 PO daily TOLTERODINE TARTRATE 81828269357 Active Tressa Danica Stephens B-D U/F PEN NEEDLE 31G X 8 MM MISC 1 PO daily Dx: DM Type II INSULIN PEN NEEDLE 90350297470 Active Tressa Danica Stephens OMACOR 1 PO daily OMACOR No Longer Active Tressa Danica Stephens [employer] STRIPS STRP as directed TID Dx: DM Type II GLUCOSE BLOOD 57842340057 Active Narayan Fortune LOVENOX 40 MG/0.4ML SOLN 1 injection daily. Begin Friday05/03/05. ENOXAPARIN SODIUM 39527980291 No Longer Active Tressa Stephens FLUVIRIN INJ done at health dept INFLUENZA VAC TYP A& B SURF ANT 18086088853 No Longer Active Tressa Stephens PNEUMOVAX 23 25 MCG/0.5ML INJ done from health dept PNEUMOCOCCAL VAC POLYVALENT 01475496629 No Longer Active Tressa Stephens MUCINEX 600 MG TB12 1 PO Q12hrs GUAIFENESIN 31035183524 No Longer Active Tressa Stephens HUMALOG MIX 75/25 75-25 % SUSP 26 units in am, 19 units in pm INSULIN LISP & LISP PROT (HUM) 89618794097 No Longer Active Tressa Stephens MULTIVITAMINS TABS 1 po daily MULTIPLE VITAMIN 98758093834 Active Tressa Stephens NEXIUM 40 MG CPDR 1 po daily ESOMEPRAZOLE MAGNESIUM 59953520174 No Longer Active Tressa Stephens NORVASC 10 MG TABS 1 po daily AMLODIPINE BESYLATE 18863935324 Active Tressa Stephens Immunizations Vaccine Administration Date [...] % Encounters Code Encounter Date Provider Facility CPT-55191 Ofc Vst, Est Level IV 17:19:02 OPERATIONAL METEOROLOGIST Tressa Stephens DO, FACP CPT-91645 Ofc Vst, Est Level IV 16:15:30 OPERATIONAL METEOROLOGIST Tressa Stephens DO, FACP CPT-25568 Ofc Vst, Est Level IV 17:12:11 OPERATIONAL METEOROLOGIST Tressa Stephens DO, FACP CPT-02106 Ofc Vst, Est Level IV 16:52:17 OPERATIONAL METEOROLOGIST Tressa Danica Stephens Tressa S Stephens, DO, FACP CPT-94585 Ofc Vst, Est Level III 16:30:23 CDT Tressa Danica Conteh Stephens, DO, FACP CPT-35616 Ofc Vst, Est Level III 17:01:51 CDT Tressa Danica Conteh Stephens, DO, FACP CPT-38527 Ofc Vst, Est Level IV 17:35:57 CDT Tressa Danica Conteh Stephens, DO, FACP CPT-62151 Ofc Vst, Est Level III 12:47:22 CDT Tressa Danica Conteh Stephens, DO, FACP CPT-29126 Ofc Vst, Est Level IV 13:16:37 CDT Tressa Danica Conteh Stephens, DO, FACP CPT-15780 Ofc Vst, Est Level III 21:22:47 CDT Tressa Danica Conteh Stephens, DO, FACP CPT-70918 Ofc Vst, Est Level III 20:42:44 OPERATIONAL METEOROLOGIST Tressa Danica Conteh Stephens, DO, FACP CPT-66165 Ofc Vst, Est Level III 13:42:40 OPERATIONAL METEOROLOGIST Tressa Danica Conteh Stephens, DO, FACP CPT-19004 Ofc Vst, Est Level IV 12:48:28 OPERATIONAL METEOROLOGIST Tressa Danica Conteh Stephens, DO, FACP CPT-70646 Ofc Vst, Est Level III 15:04:48 CDT Tressa Danica Conteh Stephens, DO, FACP CPT-28307 Ofc Vst, Est Level IV 17:19:18 CDT Tressa Danica Bustillos S Stephens, DO, FACP CPT-53609 Ofc Vst, Est Level III 09:04:25 CDT Tressa Danica Conteh Kat, DO, FACP CPT-10452 Ofc Vst, Est Level III 16:10:44 CDT Tressa Danica Conteh Stephens, DO, FACP CPT-00736 Ofc Vst, Est Level IV 20:58:16 OPERATIONAL METEOROLOGIST Tressa Danica Conteh Stephens, DO, FACP CPT-97226 Ofc Vst, Est Level IV 10:28:49 OPERATIONAL METEOROLOGIST Tressa Danica Conteh Stephens, DO, FACP CPT-93559 Ofc Vst, Est Level III 14:30:37 OPERATIONAL METEOROLOGIST Tressa Danica Conteh Stephens, DO, FACP CPT-82305 Ofc Vst, Est Level IV 11:15:48 CDT Tressa Danica Conteh Kat, DO, FACP CPT-97236 Ofc Vst, Est Level IV 11:15:33 CDT Tressa Danica Conteh Kat, DO, FACP CPT-86519 Ofc Vst, Est Level IV 11:30:32 CDT Tressa Danica Conteh Stephens, DO, FACP CPT-45311 Ofc Vst, Est Level IV 11:44:55 CDT Tressa Danica Conteh Kat, DO, FACP CPT-48359 Ofc Vst, Est Level IV 14:27:05 CDT Tressaino Conteh Kat, DO, FACP CPT-14646 Ofc Vst, Est Level V 14:28:06 OPERATIONAL METEOROLOGIST Tressa Danica Conteh Stephens, DO, FACP CPT-58570 Ofc Vst, Est Level IV 12:03:43 OPERATIONAL METEOROLOGIST Tressa Bustillos S Kat, DO, FACP CPT-98520 Ofc Vst, Est Level V 15:06:48 OPERATIONAL METEOROLOGIST Tressa Conteh Kat, DO, FACP CPT-12624 Ofc Vst, Est Level III 15:36:23 OPERATIONAL METEOROLOGIST Tressa Conteh Stephens, DO, FACP CPT-25306 Ofc Vst, Est Level V 15:39:00 CDT Tressa Danica Conteh Stephens, DO, FACP CPT-92681 Ofc Vst, Est Level V 14:02:35 CDT Tressaino Conteh Stephens, DO, FACP CPT-36911 Ofc Vst, Est Level III 15:00:21 CDT Tressaino Conteh Stephens, DO, FACP CPT-35993 Ofc Vst, Est Level IV 13:45:16 CDT Tressa Danica Conteh Stephens, DO, FACP CPT-19655 Ofc Vst, Est Level IV 14:31:48 CDT Tressaino Conteh Kat, DO, FACP CPT-66483 Ofc Vst, Est Level IV 11:14:51 CDT Tressaino Conteh Kat, DO, FACP CPT-14501 Ofc Vst, Est Level IV 14:36:19 CDT Tressaino Conteh Stephens, DO, FACP CPT-25056 Ofc Vst, Est Level IV 15:56:12 OPERATIONAL METEOROLOGIST Tressa Conteh Kat, DO, FACP CPT-67049 Ofc Vst, Est Level IV 11:37:02 CDT Tressaino Conteh Stephens, DO, FACP CPT-77044 Ofc Vst, Est Level III 11:05:27 CDT Tressa Danica Conteh Stephens, DO, FACP CPT-87449 Ofc Vst, Est Level IV 12:12:37 CDT Tressaino Conteh Stephens, DO, FACP CPT-84221 Ofc Vst, Est Level IV 11:55:51 CDT Tressaino Conteh Stephens, DO, FACP CPT-44824 Ofc Vst, Est Level V 13:46:43 CDT Tressa Danica Conteh Stephens, DO, FACP CPT-00304 Ofc Vst, Est Level IV 14:23:36 CDT Tressa Danica Conteh Stephens, DO, FACP CPT-19255 Ofc Vst, Est Level III 14:59:12 CDT Tressa Danica Conteh Stephens, DO, FACP CPT-31259 Ofc Vst, Est Level IV 16:01:19 CDT Tressa Danica Conteh Kat, DO, FACP CPT-50767 Ofc Vst, Est Level IV 15:21:33 OPERATIONAL METEOROLOGIST Trsesa Conteh Kat, DO, FACP CPT-60355 Ofc Vst, Est Level IV 10:21:01 OPERATIONAL METEOROLOGIST Tressa Conteh Kat, DO, FACP CPT-52762 Ofc Vst, Est Level V 12:53:03 OPERATIONAL METEOROLOGIST Tressa Conteh Kat, DO, FACP CPT-04992 Ofc Vst, Est Level IV 10:54:43 CDT Tressa Conteh Kat, DO, FACP CPT-95932 Ofc Vst, Est Level V 10:18:33 CDT Tressaino Conteh Kat, DO, FACP CPT-09677 Ofc Vst, Est Level V 14:14:31 CDT Tressa Danica Conteh Kat, DO, FACP CPT-73052 Ofc Vst, Est Level IV 12:25:33 CDT Tressa Conteh Kat, DO, FACP CPT-79972 Ofc Vst, Est Level IV 15:27:17 CDT Tressa Danica Conteh Kat, DO, FACP CPT-02490 Ofc Vst, Est Level IV 14:47:24 CDT Tressa Danica Conteh Kat, DO, FACP CPT-65884 Ofc Vst, Est Level V 15:19:25 CDT Tressa Danica [facility] CPT-93221 Ofc Vst, Est Level V 11:41:37 CDT Tressa Danica Conteh Stephens, DO, FACP CPT-02314 Ofc Vst, Est Level V 11:12:22 CDT Tressa Danica Conteh Kat, DO, FACP CPT-27177 Ofc Vst, Est Level IV 14:51:16 OPERATIONAL METEOROLOGIST Tressa Conteh Kat, DO, FACP CPT-94660 Ofc Vst, Est Level IV 11:31:20 OPERATIONAL METEOROLOGIST Tressa Danica Conteh Kat, DO, FACP CPT-65776 Ofc Vst, Est Level IV 10:35:51 OPERATIONAL METEOROLOGIST Tressa Conteh Kat, DO, FACP CPT-04000 Ofc Vst, Est Level IV 11:46:27 OPERATIONAL METEOROLOGIST Tressa Conteh Kat, DO, FACP CPT-08172 Ofc Vst, Est Level IV 09:34:16 OPERATIONAL METEOROLOGIST Tressa Conteh Kat, DO, FACP CPT-36732 Ofc Vst, Est Level V 11:34:06 OPERATIONAL METEOROLOGIST Tressa Conteh Kat, DO, FACP CPT-44253 Ofc Vst, Est Level IV 13:57:23 CDT Tressa Danica Bustillos S Kat, DO, FACP CPT-69111 Ofc Vst, Est Level IV 12:34:42 CDT Tressa Danica Conteh Kat, DO, FACP CPT-45521 Ofc Vst, Est Level IV 10:18:20 CDT Tressa Stephens, DO, FACP CPT-96433 Ofc Vst, Est Level IV 10:10:02 OPERATIONAL METEOROLOGIST Tressa Davisanne Kat Stephens, DO, FACP CPT-02437 Ofc Vst, Est Level IV 15:36:41 OPERATIONAL METEOROLOGIST Tressa Stephens, DO, FACP CPT-39492 Ofc Vst, Est Level III 10:41:26 OPERATIONAL METEOROLOGIST Tressa Danica Kat Stephens, DO, FACP CPT-52452 Ofc Vst, Est Level IV 13:29:32 CDT Tressa Stephens, DO, FACP CPT-36804 Ofc Vst, Est Level IV 10:30:12 CDT Tressa Stephens [facility] CPT-60606 Ofc Vst, Est Level IV 11:11:37 OPERATIONAL METEOROLOGIST Tressa Stephens [facility] CPT-92060 Ofc Vst, Est Level IV 11:06:40 OPERATIONAL METEOROLOGIST Tressa Stephens [facility] CPT-98326 Ofc Vst, Est Level IV 12:01:24 CDT Tressa Stephens [facility] CPT-45478 Ofc Vst, Est Level IV 11:43:30 CDT Tressa Stephens [facility] CPT-53553 Ofc Vst, Est Level IV 14:22:04 CDT Tressa Stephens [facility] CPT-30956 Ofc Vst, Est Level IV 13:59:46 CDT Tressa Stephens [facility] CPT-94586 Ofc Vst, Est Level IV 14:02:19 OPERATIONAL METEOROLOGIST Tressa Stephens [facility] CPT-00586 Ofc Vst, Est Level IV 15:07:12 OPERATIONAL METEOROLOGIST Tressa Stephens [facility] CPT-44333 Ofc Vst, Est Level IV 15:11:06 OPERATIONAL METEOROLOGIST Tressa Davisanndre JorgensenStephens [facility] CPT-37400 Ofc Vst, Est Level IV 15:30:27 OPERATIONAL METEOROLOGIST Tressa Jorgensenner [facility] CPT-62008 Ofc Vst, Est Level IV 11:04:18 OPERATIONAL METEOROLOGIST Tressa Davisanndre JorgensenStephens [facility] CPT-63566 Ofc Vst, Est Level IV 13:50:55 OPERATIONAL METEOROLOGIST Tressa Davisanndre JorgensenStephens [facility] CPT-36958 Ofc Vst, Est Level IV 16:27:37 CDT Tressa Danica Stephens [facility] CPT-13330 Ofc Vst, Est Level IV 14:19:58 CDT Tressa Jorgensenner [facility] CPT-13370 Ofc Vst, New Level IV 14:53:27 CDT Tressa Davisanndre JorgensenStephens [facility] Procedures Code Procedure Name Date Entry Date Standard Description CPT-G0439 Medicare Annual Wellness Visit 17:05:42 OPERATIONAL METEOROLOGIST CPT-G8446 E-Prescribing not done due to controlled substance 21:22 :47 CDT CPT-G8446 E-Prescribing not done due to controlled substance 20:42 :44 OPERATIONAL METEOROLOGIST CPT-G8445 E-Prescribing Not sent due to no medication given 13:42: 40 OPERATIONAL METEOROLOGIST CPT-G8445 E-Prescribing Not sent due to no medication given 12:48: 28 OPERATIONAL METEOROLOGIST CPT-G8445 E-Prescribing Not sent due to no medication given 21:29: 51 OPERATIONAL METEOROLOGIST CPT-G0439 Medicare Annual Wellness Visit 21:29:51 OPERATIONAL METEOROLOGIST CPT-G8443 E-Prescribing Medication Sent 15:04:48 CDT CPT-G8446 E-Prescribing not done due to controlled substance 17:19 :18 CDT CPT-G8446 E-Prescribing not done due to controlled substance 09:04 :25 CDT CPT-G8445 E-Prescribing Not sent due to no medication given 16:10: 44 CDT CPT-G8445 E-Prescribing Not sent due to no medication given 20:58: 16 OPERATIONAL METEOROLOGIST CPT-G8446 E-Prescribing not done due to controlled substance 10:28 :49 OPERATIONAL METEOROLOGIST CPT-G8443 E-Prescribing Medication Sent 14:30:37 OPERATIONAL METEOROLOGIST CPT-G8446 E-Prescribing not done due to controlled substance 15:30 :57 CDT CPT-G0438 Medicare Annual Wellness Visit Initial 15:30:57 CDT CPT-14388 Injection, Pneumovax 11:37:02 CDT CPT-8445 E-Prescribing Not sent due to no medication given 15:19: 25 CDT CPT-8445 E-Prescribing Not sent due to no medication given 11:41: 37 CDT CPT-19463 Influenza Vaccine 10:38:35 OPERATIONAL METEOROLOGIST CPT-G0008 Administration Influenza Vaccine 10:38:35 OPERATIONAL METEOROLOGIST CPT-41959 Influenza Vaccine 10:03:07 CDT CPT-G0008 Administration Influenza Vaccine 10:03:07 CDT
--- OUTSIDE RECORDS SUMMARY | 2018-04-13 06:44 | XMS REPORT | Clinical Summary ---
Author Author User, ALEXANDREA Organization [facility] [place] Address Unknown Phone Unavailable Allergies, Adverse Reactions, [...] TABS 1 PO TID prn HYDROXYZINE HCL 99438053225 No Longer Active Tressa Stephens VALIUM 2 MG TAB 1-2 PO before MRI procedure DIAZEPAM 24171913811 No Longer Active Tressa Stephens OXYCONTIN 20 MG [id number] 1 PO Q 12hrs scheduled OXYCODONE HCL No Longer Active Tressa Stephens HUMALOG KWIKPEN 100 UNIT/ML SOPN 12 units before each meal INSULIN LISPRO (HUMAN) 70549485202 Active Tressa Stephens PREDNISONE 20 MG TAB 3 PO at one time daily PREDNISONE 79529136597 No Longer Active Tressa Danica Stephens ZOSTAVAX 36668 UNT/0.65ML SOLR 1 injection once to prevent Shingles ZOSTER VACCINE LIVE 24180697499 No Longer Active Tressaino Stephens VOLTAREN 1 % GEL Apply to affected area twice daily prn pain. DICLOFENAC SODIUM 37197515818 No Longer Active Tressa Danica Stephens ASTEPRO 0.15 % SOLN 1 puff each nostril TID AZELASTINE HCL 56061961539 No Longer Active Tressa Danica Stephens CELEXA 20 MG TABS 1 PO daily CITALOPRAM HYDROBROMIDE 31469712279 No Longer Active Tressa Danica Stephens KEFLEX 500 MG CAP 1 PO TID for 7 days CEPHALEXIN 85155872579 No Longer Active Carlyn Marks SYNTHROID 150 MCG TABS 1 PO Daily LEVOTHYROXINE SODIUM 61264162640 Active Carlyn Marks NEURONTIN 300 MG CAP 1-2 PO BID GABAPENTIN 32137988899 Active Tressaino ACEVEDO ODT 8 MG TBDP 1 po q 6hrs prn nausea ONDANSETRON 17990998229 No Longer Active Tressaino Stephens CARAFATE 1 GM TABS 1 PO 30 minutes before meals and at bedtime SUCRALFATE 71950511769 No Longer Active Tressa Danica Stephens SYNTHROID 150 MCG TABS 1 PO every other day alternating with 137mcg LEVOTHYROXINE SODIUM 32041314177 No Longer Active Tressaino Stephens INDOMETHACIN 50 MG CAPS 1 PO TID for 5 days INDOMETHACIN 76024240956 No Longer Active Tressaino Stephens PREDNISONE 5 MG TABS 2 Po daily for 2 weeks and then change to 1 PO daily for 2 weeks. PREDNISONE 69137999686 No Longer Active Tressa Stephens XANAX 0.25 MG TABS 1-2 PO Q6hrs prn ALPRAZOLAM 15647807513 Active Tressaino Stephens LASIX 20 MG TAB 1 PO BID prn swelling FUROSEMIDE 46069897579 Active Tressaino Stephens K-DUR 20 MEQ TAB CR 1 PO daily POTASSIUM CHLORIDE Active Tressaino Stephens PREDNISONE 20 MG TAB 1 PO daily PREDNISONE 12452797888 No Longer Active Tressa Stephens FLUDROCORTISONE ACETATE 0.1 MG TABS 1 PO daily FLUDROCORTISONE ACETATE 05838568007 No Longer Active Tressa Stephens ACCURETIC 20-12.5 MG TABS 1 PO daily QUINAPRIL- HYDROCHLOROTHIAZIDE 32211983928 No Longer Active Tressa Stephens SYNTHROID 150 MCG TABS 1 PO alternating with 137 mcg every other day LEVOTHYROXINE SODIUM 96055363707 No Longer Active Tressa Stephens OXYCODONE HCL 10 MG TABS 2 PO Q4hrs prn OXYCODONE HCL 96647540651 Active Carlyn Marks OXYCONTIN 20 MG [id number] 1 PO Q12hrs scheduled OXYCODONE HCL 81207901850 No Longer Active Tressa Stephens COREG 12.5 MG TABS 1 PO BID for Blood pressure (on hold 04/30) CARVEDILOL 94835185958 No Longer Active Tressa Stephens DAGOBERTO 180 MG TABS 1 PO QD FEXOFENADINE HCL Active Tressaino Stephens ZOCOR 20 MG TAB 1 PO daily SIMVASTATIN 31934484166 Active Tressaino Stephens MIRALAX POWD 1 scoop in 4oz of water PO BID POLYETHYLENE GLYCOL 3350 22458721801 Active Susanna Bruno DARVOCET-N 100 100-650 MG TAB 1 PO Q6hrs prn pain PROPOXYPHENE N-APAP 30758739959 No Longer Active Tressa Danica LAW'Wero NASAL SPRAY (DEXAMETHASONE, GENTAMICIN, SALINE) 2 puffs each nostril TID x [address] MYERS NASAL SPRAY ( DEXAMETHASONE, GENTAMICIN, SALINE) No Longer Active Tressa Danica Stephens SINEMET 25-100 MG TABS 1 po TID CARBIDOPA-LEVODOPA 99245447126 Active Tressa Danica Stephens BENADRYL 25 MG CAP 1 PO Q6hrs prn itching DIPHENHYDRAMINE HCL 07509058278 No Longer Active Tressa Danica Stephens NEXIUM 40 MG CPDR 1 PO daily ESOMEPRAZOLE MAGNESIUM 58119565401 Active Tressa Danica Stephens K-PHOS TABS 1 po BID POTASSIUM PHOSPHATE MONOBASIC TABS 88703802326 No Longer Active Tressa Danica Stephens MICARDIS 80 MG TABS 1 po daily TELMISARTAN 74318059000 Active Tressa Danica Stephens MULTIVITAMINS TABS 1 PO QD MULTIPLE VITAMIN 81398769917 No Longer Active Tressaino Stephens LANTUS SOLOSTAR 100 UNIT/ML SOLN 40 units SQ QHS INSULIN GLARGINE 31764966025 Active Tressa Danica Stephens PATANOL 0.1 % SOLN 2 drops in each eye BID prn OLOPATADINE HCL 78220386114 No Longer Active Tressa Danica Stephens FISH OIL 1000 MG CAPS 2 tabs po TID OMEGA-3 FATTY ACIDS 61150912127 No Longer Active Tressa Danica Stephens PREMARIN 1.25 MG TAB 1 PO daily ESTROGENS CONJUGATED 63503110760 Active Tressa Danica Stephens PEN NEEDLES 1/2" 29G X 12MM MISC as directed on the Lantus Pen INSULIN PEN NEEDLE 30328755355 No Longer Active Tressa Danica Stephens BD INSULIN SYRINGE ULTRAFINE 29G X 1/2" 1 ML MISC as directed DX: Diabetes INSULIN SYRINGE-NEEDLE U-100 95989891258 No Longer Active Tressa Danica Stephens LOVAZA 1 GM CAPS 2 po BID [id number] ETHYL ESTERS 24353271524 Active Tressa Danica Stephens PREDNISONE 10 MG TAB 1 PO daily PREDNISONE 41144456099 No Longer Active Tressa Danica Stephens ALPRAZOLAM 0.25 MG TABS 1/2 to 1 tab po q 8 hrs prn anxiety 07/24 ALPRAZOLAM 39579892298 No Longer Active Tressa Danica Stephens TRANXENE-T 7.5 MG TABS 1 po BID prn CLORAZEPATE DIPOTASSIUM 09598850900 Active Tressa Danica Stephens ZESTRIL 20 MG TABS 1 po daily LISINOPRIL 57741238837 No Longer Active Tressa Danica Stephens MUCINEX 600 MG [id number] 1 po TID GUAIFENESIN 47027616004 Active Tressa Danica Stephens DARVOCET-N 100 100-650 MG TAB 1 PO Q6hrs prn pain PROPOXYPHENE N-APAP 60230266010 No Longer Active Tressa Danica Stephens METANX 2.8-25-2 MG TABS 1 PO daily [id number] 59385088937 No Longer Active Tressa Danica Stephens SINEMET 25-100 MG TABS 2 PO BID prn CARBIDOPA-LEVODOPA 74377254570 No Longer Active Tressa Danica Stephens LOVAZA 1 GM CAPS 2 po BID [id number] ETHYL ESTERS 64107393051 No Longer Active Tressa Danica Stephens LORTAB 10 TABS 1 po q 4 hrs prn pain HYDROCODONE- ACETAMINOPHEN TABS 98529152653 No Longer Active Tressa Danica Stephens CALCIUM 600 + D 600-200 MG-UNIT TABS 1 po daily CALCIUM CARBONATE-VITAMIN D 86067784052 Active Tressa Danica Stephens VITAMIN C 500 MG TABS 1 po BID ASCORBIC ACID 81922527320 Active Tressa Danica Stephens CLORAZEPATE DIPOTASSIUM 3.75 MG TABS 1 tab 2 times daily prn CLORAZEPATE DIPOTASSIUM 02982378873 No Longer Active Tressa Danica Stephens PRILOSEC 20 MG CAP CR 1 PO QD OMEPRAZOLE 03894471035 No Longer Active Tressa Danica Stephens PREMARIN 1.25 MG TABS 1 po daily ESTROGENS CONJUGATED 37122379838 No Longer Active Tressa Danica Stephens LIPITOR 20 MG TABS 1 po daily ATORVASTATIN CALCIUM 89957822687 No Longer Active Tressa Danica Stephens CLONIDINE HCL 0.1 MG TAB 1 po BID CLONIDINE HCL 67698604993 No Longer Active Tressa Danica Stephens ACCURETIC 20-12.5 MG TABS 2 PO QAM QUINAPRIL- HYDROCHLOROTHIAZIDE 52053093490 No Longer Active Tressa Danica Stephens MICARDIS 80 MG TABS 1 PO QPM TELMISARTAN 19676066660 No Longer Active Tressa Danica Stephens GLUCOVANCE 5-500 MG TABS 1 tab po BID GLYBURIDE-METFORMIN 87298235114 No Longer Active Tressa Danica Stephens LEVEMIR 100 UNIT/ML SOLN 40 units at HS INSULIN DETEMIR 66719981989 No Longer Active Tressa Danica Stephens TAMIFLU 75 MG CAPS 1 PO daily for 10 days OSELTAMIVIR PHOSPHATE 98954227045 No Longer Active Matthieu Sonya PREDNISONE 10 MG TABS 1 PO Daily PREDNISONE 28244552342 No Longer Active Tressa Danica Stephens LANTUS 100 UNIT/ML SOLN (INSULIN GLARGINE) PEN Take 32 units SQ QHS LANTUS 100 UNIT/ML SOLN (INSULIN GLARGINE) PEN No Longer Active Tressa Stephens CEFTIN 250 MG TABS 1 PO BID CEFUROXIME AXETIL 39469463808 No Longer Active Tressa Danica LAW'S NASAL SPRAY (DEXAMETHASONE, GENTAMICIN, SALINE) 2 puffs each nostril TID for [address] MYERS NASAL SPRAY ( DEXAMETHASONE, GENTAMICIN, SALINE) No Longer Active Tressa Danica Stehpens ATROVENT 0.06 % SOLN 2 puffs each nostril TID prn runny nose and sinus drainage IPRATROPIUM BROMIDE 63214215780 No Longer Active Tressa Danica Stephens MUCINEX DM 30-600 MG TB12 1 PO Q12hrs DEXTROMETHORPHAN- GUAIFENESIN 80635523224 No Longer Active Tressaino Stephens ADVAIR DISKUS 100-50 MCG/DOSE MISC 1 puff BID FLUTICASONE-SALMETEROL 91178181976 No Longer Active Tressaino Stephens ROBITUSSIN A-C 10-100 MG/5ML SYRUP 1 teaspoon PO Q 4-6 hr prn ROBITUSSIN A-C 10-100 MG/5ML SYRUP 08068130281 No Longer Active Tressa Danica Stephens TESSALON 200 MG CAPS 1 PO TID prn cough BENZONATATE 88000439663 No Longer Active Bhumi Merando ROBITUSSIN A-C 10-100 MG/5ML SYRUP 1 teaspoon PO Q 4-6 hr prn ROBITUSSIN A-C 10-100 MG/5ML SYRUP 20763634328 No Longer Active Bhumi Merando DARVOCET-N 100 100-650 MG TABS 1 po q 4 hrs. prn PROPOXYPHENE N-APAP 84437245312 No Longer Active Tressa Danica Stephens SALSALATE 750 MG TABS 1 po QID prn SALSALATE 77870931908 No Longer Active Tressa Danica Stephens DAGOBERTO 180 MG TABS 1 PO QD FEXOFENADINE HCL 91586965426 No Longer Active Tressa Danica LAW'Wero NASAL SPRAY (DEXAMETHASONE, GENTAMICIN, SALINE) 2 puffs each nostril TID DR. MYERS NASAL SPRAY (DEXAMETHASONE, GENTAMICIN, SALINE) No Longer Active Tressaino Stephens AMOXICILLIN 500 MG CAP 1 PO TID AMOXICILLIN 07991955610 No Longer Active Tressa Danica Stephens AVANDIA 8 MG TABS 1 po daily ROSIGLITAZONE MALEATE 36267200672 No Longer Active Tressa Danica Stephens DICLOFENAC POTASSIUM 50 MG TABS 1 po TID DICLOFENAC POTASSIUM 73690138424 No Longer Active Tressa Danica Stephens DAGOBERTO 180 MG TABS 1 PO QD FEXOFENADINE HCL 40096836740 No Longer Active Tressa Danica Stephens DRIXORAL 6-120 MG TB12 1 sparingly DEXBROMPHENIRAMINE -PSEUDOEPH 98870026087 No Longer Active Tressa Danica Stephens TOY PLUS EXTRA STRENGTH 500 MG TABS 1 PO daily ASPIRIN BUFFERED 53681443865 No Longer Active Tressa Danica Stephens DETROL LA 4 MG CP24 1 PO daily TOLTERODINE TARTRATE 13760885453 Active Tressa Danica Stephens B-D U/F PEN NEEDLE 31G X 8 MM MISC 1 PO daily Dx: DM Type II INSULIN PEN NEEDLE 15371948915 Active Tressa Danica Stephens OMACOR 1 PO daily OMACOR No Longer Active Tressa Danica Stephens [employer] STRIPS STRP as directed TID Dx: DM Type II GLUCOSE BLOOD 33036955073 Active Narayan Fortune LOVENOX 40 MG/0.4ML SOLN 1 injection daily. Begin Friday05/03/05. ENOXAPARIN SODIUM 20437150838 No Longer Active Tressa Stephens FLUVIRIN INJ done at health dept INFLUENZA VAC TYP A& B SURF ANT 58417566291 No Longer Active Tressa Stephens PNEUMOVAX 23 25 MCG/0.5ML INJ done from health dept PNEUMOCOCCAL VAC POLYVALENT 76075472912 No Longer Active Tressa Stephens MUCINEX 600 MG TB12 1 PO Q12hrs GUAIFENESIN 01942373062 No Longer Active Tressa Stephens HUMALOG MIX 75/25 75-25 % SUSP 26 units in am, 19 units in pm INSULIN LISP & LISP PROT (HUM) 21503796054 No Longer Active Tressa Stephens MULTIVITAMINS TABS 1 po daily MULTIPLE VITAMIN 79326754343 Active Tressa Stephens NEXIUM 40 MG CPDR 1 po daily ESOMEPRAZOLE MAGNESIUM 47419899884 No Longer Active Tressa Stephens NORVASC 10 MG TABS 1 po daily AMLODIPINE BESYLATE 20212339015 Active Tressa Stephens Immunizations Vaccine Administration Date [...] % Encounters Code Encounter Date Provider Facility CPT-24562 Ofc Vst, Est Level IV 17:19:02 PREPRINT ANALYST Tressa Stephens DO, FACP CPT-05038 Ofc Vst, Est Level IV 16:15:30 PREPRINT ANALYST Tressa Stephens DO, FACP CPT-95202 Ofc Vst, Est Level IV 17:12:11 PREPRINT ANALYST Tressa Stephens DO, FACP CPT-65748 Ofc Vst, Est Level IV 16:52:17 PREPRINT ANALYST Tressa Danica Stephens Tressa S Stephens, DO, FACP CPT-42859 Ofc Vst, Est Level III 16:30:23 CDT Tressa Danica Conteh Stephens, DO, FACP CPT-89197 Ofc Vst, Est Level III 17:01:51 CDT Tressa Danica Conteh Stephens, DO, FACP CPT-48031 Ofc Vst, Est Level IV 17:35:57 CDT Tressa Danica Conteh Stephens, DO, FACP CPT-33942 Ofc Vst, Est Level III 12:47:22 CDT Tressa Danica Conteh Stephens, DO, FACP CPT-33359 Ofc Vst, Est Level IV 13:16:37 CDT Tressa Danica Conteh Stephens, DO, FACP CPT-66149 Ofc Vst, Est Level III 21:22:47 CDT Tressa Danica Conteh Stephens, DO, FACP CPT-96559 Ofc Vst, Est Level III 20:42:44 PREPRINT ANALYST Tressa Danica Conteh Stephens, DO, FACP CPT-19636 Ofc Vst, Est Level III 13:42:40 PREPRINT ANALYST Tressa Danica Conteh Stephens, DO, FACP CPT-57231 Ofc Vst, Est Level IV 12:48:28 PREPRINT ANALYST Tressa Danica Conteh Stephens, DO, FACP CPT-90408 Ofc Vst, Est Level III 15:04:48 CDT Tressa Danica Conteh Stephens, DO, FACP CPT-06593 Ofc Vst, Est Level IV 17:19:18 CDT Tressa Danica Bustillos S Stephens, DO, FACP CPT-11266 Ofc Vst, Est Level III 09:04:25 CDT Tressa Danica Conteh Kat, DO, FACP CPT-05007 Ofc Vst, Est Level III 16:10:44 CDT Tressa Danica Conteh Stephens, DO, FACP CPT-46607 Ofc Vst, Est Level IV 20:58:16 PREPRINT ANALYST Tressa Danica Conteh Stephens, DO, FACP CPT-80897 Ofc Vst, Est Level IV 10:28:49 PREPRINT ANALYST Tressa Danica Conteh Stephens, DO, FACP CPT-40813 Ofc Vst, Est Level III 14:30:37 PREPRINT ANALYST Tressa Danica Conteh Stephens, DO, FACP CPT-71225 Ofc Vst, Est Level IV 11:15:48 CDT Tressa Danica Conteh Kat, DO, FACP CPT-22810 Ofc Vst, Est Level IV 11:15:33 CDT Tressa Danica Conteh Kat, DO, FACP CPT-81226 Ofc Vst, Est Level IV 11:30:32 CDT Tressa Danica Conteh Stephens, DO, FACP CPT-20443 Ofc Vst, Est Level IV 11:44:55 CDT Tressa Danica Conteh Kat, DO, FACP CPT-73624 Ofc Vst, Est Level IV 14:27:05 CDT Tressaino Conteh Kat, DO, FACP CPT-72180 Ofc Vst, Est Level V 14:28:06 PREPRINT ANALYST Tressa Danica Conteh Stephens, DO, FACP CPT-00269 Ofc Vst, Est Level IV 12:03:43 PREPRINT ANALYST Tressa Bustillos S Kat, DO, FACP CPT-10062 Ofc Vst, Est Level V 15:06:48 PREPRINT ANALYST Tressa Conteh Kat, DO, FACP CPT-12869 Ofc Vst, Est Level III 15:36:23 PREPRINT ANALYST Tressa Conteh Stephens, DO, FACP CPT-41211 Ofc Vst, Est Level V 15:39:00 CDT Tressa Danica Conteh Stephens, DO, FACP CPT-85037 Ofc Vst, Est Level V 14:02:35 CDT Tressaino Conteh Stephens, DO, FACP CPT-66064 Ofc Vst, Est Level III 15:00:21 CDT Tressaino Conteh Stephens, DO, FACP CPT-59902 Ofc Vst, Est Level IV 13:45:16 CDT Tressa Danica Conteh Stephens, DO, FACP CPT-56440 Ofc Vst, Est Level IV 14:31:48 CDT Tressaino Conteh Kat, DO, FACP CPT-06855 Ofc Vst, Est Level IV 11:14:51 CDT Tressaino Conteh Kat, DO, FACP CPT-57002 Ofc Vst, Est Level IV 14:36:19 CDT Tressaino Conteh Stephens, DO, FACP CPT-68117 Ofc Vst, Est Level IV 15:56:12 PREPRINT ANALYST Tressa Conteh Kat, DO, FACP CPT-11008 Ofc Vst, Est Level IV 11:37:02 CDT Tressaino Conteh Stephens, DO, FACP CPT-57877 Ofc Vst, Est Level III 11:05:27 CDT Tressa Danica Conteh Stephens, DO, FACP CPT-59245 Ofc Vst, Est Level IV 12:12:37 CDT Tressaino Conteh Stephens, DO, FACP CPT-38047 Ofc Vst, Est Level IV 11:55:51 CDT Tressaino Conteh Stephens, DO, FACP CPT-22893 Ofc Vst, Est Level V 13:46:43 CDT Tressa Danica Conteh Stephens, DO, FACP CPT-19186 Ofc Vst, Est Level IV 14:23:36 CDT Tressa Danica Conteh Stephens, DO, FACP CPT-60300 Ofc Vst, Est Level III 14:59:12 CDT Tressa Danica Conteh Stephens, DO, FACP CPT-67293 Ofc Vst, Est Level IV 16:01:19 CDT Tressa Danica Conteh Kat, DO, FACP CPT-88452 Ofc Vst, Est Level IV 15:21:33 PREPRINT ANALYST Tressa Conteh Kat, DO, FACP CPT-21594 Ofc Vst, Est Level IV 10:21:01 PREPRINT ANALYST Tressa Conteh Kat, DO, FACP CPT-23237 Ofc Vst, Est Level V 12:53:03 PREPRINT ANALYST Tressa Conteh Kat, DO, FACP CPT-28033 Ofc Vst, Est Level IV 10:54:43 CDT Tressa Conteh Kat, DO, FACP CPT-27004 Ofc Vst, Est Level V 10:18:33 CDT Tressaino Conteh Kat, DO, FACP CPT-27804 Ofc Vst, Est Level V 14:14:31 CDT Tressa Danica Conteh Kat, DO, FACP CPT-14318 Ofc Vst, Est Level IV 12:25:33 CDT Tressa Conteh Kat, DO, FACP CPT-32755 Ofc Vst, Est Level IV 15:27:17 CDT Tressa Danica Conteh Kat, DO, FACP CPT-87252 Ofc Vst, Est Level IV 14:47:24 CDT Tressa Danica Conteh Kat, DO, FACP CPT-34712 Ofc Vst, Est Level V 15:19:25 CDT Tressa Danica [facility] CPT-28956 Ofc Vst, Est Level V 11:41:37 CDT Tressa Danica Conteh Stephens, DO, FACP CPT-32938 Ofc Vst, Est Level V 11:12:22 CDT Tressa Danica Conteh Kat, DO, FACP CPT-54283 Ofc Vst, Est Level IV 14:51:16 PREPRINT ANALYST Tressa Conteh Kat, DO, FACP CPT-22158 Ofc Vst, Est Level IV 11:31:20 PREPRINT ANALYST Tressa Danica Conteh Kat, DO, FACP CPT-25686 Ofc Vst, Est Level IV 10:35:51 PREPRINT ANALYST Tressa Conteh Kat, DO, FACP CPT-20853 Ofc Vst, Est Level IV 11:46:27 PREPRINT ANALYST Tressa Conteh Kat, DO, FACP CPT-57062 Ofc Vst, Est Level IV 09:34:16 PREPRINT ANALYST Tressa Conteh Kat, DO, FACP CPT-65085 Ofc Vst, Est Level V 11:34:06 PREPRINT ANALYST Tressa Conteh Kat, DO, FACP CPT-06141 Ofc Vst, Est Level IV 13:57:23 CDT Tressa Danica Bustillos S Kat, DO, FACP CPT-34514 Ofc Vst, Est Level IV 12:34:42 CDT Tressa Danica Conteh Kat, DO, FACP CPT-14250 Ofc Vst, Est Level IV 10:18:20 CDT Tressa Stephens, DO, FACP CPT-64713 Ofc Vst, Est Level IV 10:10:02 PREPRINT ANALYST Tressa Davisanne Kat Stephens, DO, FACP CPT-26732 Ofc Vst, Est Level IV 15:36:41 PREPRINT ANALYST Tressa Stephens, DO, FACP CPT-43241 Ofc Vst, Est Level III 10:41:26 PREPRINT ANALYST Tressa Danica Kat Stephens, DO, FACP CPT-66499 Ofc Vst, Est Level IV 13:29:32 CDT Tressa Stephens, DO, FACP CPT-05061 Ofc Vst, Est Level IV 10:30:12 CDT Tressa Stephens [facility] [place] CPT-43231 Ofc Vst, Est Level IV 11:11:37 PREPRINT ANALYST Tressa Stephens [facility] [place] CPT-32308 Ofc Vst, Est Level IV 11:06:40 PREPRINT ANALYST Tressa Stephens [facility] [place] CPT-00335 Ofc Vst, Est Level IV 12:01:24 CDT Tressa Stephens [facility] [place] CPT-87111 Ofc Vst, Est Level IV 11:43:30 CDT Tressa Stephens [facility] [place] CPT-43209 Ofc Vst, Est Level IV 14:22:04 CDT Tressa Stephens [facility] [place] CPT-18453 Ofc Vst, Est Level IV 13:59:46 CDT Tressa Stephens [facility] [place] CPT-12135 Ofc Vst, Est Level IV 14:02:19 PREPRINT ANALYST Tressa Stephens [facility] [place] CPT-20306 Ofc Vst, Est Level IV 15:07:12 PREPRINT ANALYST Tressa Stephens [facility] [place] CPT-94065 Ofc Vst, Est Level IV 15:11:06 PREPRINT ANALYST Tressa Davisanndre JorgensenStephens [facility] [place] CPT-20425 Ofc Vst, Est Level IV 15:30:27 PREPRINT ANALYST Tressa Jorgensenner [facility] [place] CPT-78808 Ofc Vst, Est Level IV 11:04:18 PREPRINT ANALYST Tressa Davisanndre JorgensenStephens [facility] [place] CPT-27892 Ofc Vst, Est Level IV 13:50:55 PREPRINT ANALYST Tressa Davisanndre JorgensenStephens [facility] [place] CPT-07152 Ofc Vst, Est Level IV 16:27:37 CDT Tressa Danica Stephens [facility] [place] CPT-59058 Ofc Vst, Est Level IV 14:19:58 CDT Tressa Jorgensenner [facility] [place] CPT-08020 Ofc Vst, New Level IV 14:53:27 CDT Tressa Davisanndre JorgensenStephens [facility] [place] Procedures Code Procedure Name Date Entry Date Standard Description CPT-G0439 Medicare Annual Wellness Visit 17:05:42 PREPRINT ANALYST CPT-G8446 E-Prescribing not done due to controlled substance 21:22 :47 CDT CPT-G8446 E-Prescribing not done due to controlled substance 20:42 :44 PREPRINT ANALYST CPT-G8445 E-Prescribing Not sent due to no medication given 13:42: 40 PREPRINT ANALYST CPT-G8445 E-Prescribing Not sent due to no medication given 12:48: 28 PREPRINT ANALYST CPT-G8445 E-Prescribing Not sent due to no medication given 21:29: 51 PREPRINT ANALYST CPT-G0439 Medicare Annual Wellness Visit 21:29:51 PREPRINT ANALYST CPT-G8443 E-Prescribing Medication Sent 15:04:48 CDT CPT-G8446 E-Prescribing not done due to controlled substance 17:19 :18 CDT CPT-G8446 E-Prescribing not done due to controlled substance 09:04 :25 CDT CPT-G8445 E-Prescribing Not sent due to no medication given 16:10: 44 CDT CPT-G8445 E-Prescribing Not sent due to no medication given 20:58: 16 PREPRINT ANALYST CPT-G8446 E-Prescribing not done due to controlled substance 10:28 :49 PREPRINT ANALYST CPT-G8443 E-Prescribing Medication Sent 14:30:37 PREPRINT ANALYST CPT-G8446 E-Prescribing not done due to controlled substance 15:30 :57 CDT CPT-G0438 Medicare Annual Wellness Visit Initial 15:30:57 CDT CPT-07536 Injection, Pneumovax 11:37:02 CDT CPT-8445 E-Prescribing Not sent due to no medication given 15:19: 25 CDT CPT-8445 E-Prescribing Not sent due to no medication given 11:41: 37 CDT CPT-74277 Influenza Vaccine 10:38:35 PREPRINT ANALYST CPT-G0008 Administration Influenza Vaccine 10:38:35 PREPRINT ANALYST CPT-01455 Influenza Vaccine 10:03:07 CDT CPT-G0008 Administration Influenza Vaccine 10:03:07 CDT
--- OUTSIDE RECORDS SUMMARY | 2018-04-13 06:46 | XMS REPORT ---
Author Author User, ALEXANDREA Organization [facility], [facility] [place] [facility] [place] Address Unknown Phone Unavailable Allergies, Adverse Reactions, [...] TABS 1 PO TID prn HYDROXYZINE HCL [id number] No Longer Active Tressa Stephens VALIUM 2 MG TAB 1-2 PO before MRI procedure DIAZEPAM 30023522157 No Longer Active Tressa Stephens OXYCONTIN 20 MG [id number] 1 PO Q 12hrs scheduled OXYCODONE HCL No Longer Active Tressa Stephens HUMALOG KWIKPEN 100 UNIT/ML SOPN 12 units before each meal INSULIN LISPRO (HUMAN) 72048051553 Active Tressa Stephens PREDNISONE 20 MG TAB 3 PO at one time daily PREDNISONE 25214057950 No Longer Active Tressa Danica Stephens ZOSTAVAX 93753 UNT/0.65ML SOLR 1 injection once to prevent Shingles ZOSTER VACCINE LIVE 31989885786 No Longer Active Tressaino Stephens VOLTAREN 1 % GEL Apply to affected area twice daily prn pain. DICLOFENAC SODIUM 45357815850 No Longer Active Tressa Danica Stephens ASTEPRO 0.15 % SOLN 1 puff each nostril TID AZELASTINE HCL 51196151245 No Longer Active Tressa Danica Stephens CELEXA 20 MG TABS 1 PO daily CITALOPRAM HYDROBROMIDE 19142219622 No Longer Active Tressa Danica Stephens KEFLEX 500 MG CAP 1 PO TID for 7 days CEPHALEXIN 76200110014 No Longer Active Carlyn Marks SYNTHROID 150 MCG TABS 1 PO Daily LEVOTHYROXINE SODIUM 59006800404 Active Carlyn Marks NEURONTIN 300 MG CAP 1-2 PO BID GABAPENTIN 23261346935 Active Tressaino ACEVEDO ODT 8 MG TBDP 1 po q 6hrs prn nausea ONDANSETRON 18288956305 No Longer Active Tressaino Stephens CARAFATE 1 GM TABS 1 PO 30 minutes before meals and at bedtime SUCRALFATE 30170101939 No Longer Active Tressa Danica Stephens SYNTHROID 150 MCG TABS 1 PO every other day alternating with 137mcg LEVOTHYROXINE SODIUM 39472253376 No Longer Active Tressaino Stephens INDOMETHACIN 50 MG CAPS 1 PO TID for 5 days INDOMETHACIN 72054770743 No Longer Active Tressaino Stephens PREDNISONE 5 MG TABS 2 Po daily for 2 weeks and then change to 1 PO daily for 2 weeks. PREDNISONE 42994398927 No Longer Active Tressa Stephens XANAX 0.25 MG TABS 1-2 PO Q6hrs prn ALPRAZOLAM 92089616066 Active Tressaino Stephens LASIX 20 MG TAB 1 PO BID prn swelling FUROSEMIDE 66561099799 Active Tressaino Stephens K-DUR 20 MEQ TAB CR 1 PO daily POTASSIUM CHLORIDE Active Tressaino Stephens PREDNISONE 20 MG TAB 1 PO daily PREDNISONE 54510896961 No Longer Active Tressa Stephens FLUDROCORTISONE ACETATE 0.1 MG TABS 1 PO daily FLUDROCORTISONE ACETATE 77294913733 No Longer Active Tressa Stephens ACCURETIC 20-12.5 MG TABS 1 PO daily QUINAPRIL- HYDROCHLOROTHIAZIDE 93025615656 No Longer Active Tressa Stephens SYNTHROID 150 MCG TABS 1 PO alternating with 137 mcg every other day LEVOTHYROXINE SODIUM 25938127593 No Longer Active Tressa Stephens OXYCODONE HCL 10 MG TABS 2 PO Q4hrs prn OXYCODONE HCL 85901362325 Active Carlyn Marks OXYCONTIN 20 MG [id number] 1 PO Q12hrs scheduled OXYCODONE HCL 46447585328 No Longer Active Tressa Stephens COREG 12.5 MG TABS 1 PO BID for Blood pressure (on hold 04/30) CARVEDILOL 87190946025 No Longer Active Tressa Stephens DAGOBERTO 180 MG TABS 1 PO QD FEXOFENADINE HCL Active Tressaino Stephens ZOCOR 20 MG TAB 1 PO daily SIMVASTATIN 72234330029 Active Tressaino Stephens MIRALAX POWD 1 scoop in 4oz of water PO BID POLYETHYLENE GLYCOL 3350 80152608777 Active Susanna Bruno DARVOCET-N 100 100-650 MG TAB 1 PO Q6hrs prn pain PROPOXYPHENE N-APAP 93330220729 No Longer Active Tressa Danica LAW'Wero NASAL SPRAY (DEXAMETHASONE, GENTAMICIN, SALINE) 2 puffs each nostril TID x [address] MYERS NASAL SPRAY ( DEXAMETHASONE, GENTAMICIN, SALINE) No Longer Active Tressa Danica Stephens SINEMET 25-100 MG TABS 1 po TID CARBIDOPA-LEVODOPA 85689608646 Active Tressa Danica Stephens BENADRYL 25 MG CAP 1 PO Q6hrs prn itching DIPHENHYDRAMINE HCL 64396946284 No Longer Active Tressa Danica Stephens NEXIUM 40 MG CPDR 1 PO daily ESOMEPRAZOLE MAGNESIUM 69021391491 Active Tressa Danica Stephens K-PHOS TABS 1 po BID POTASSIUM PHOSPHATE MONOBASIC TABS 16897322866 No Longer Active Tressa Danica Stephens MICARDIS 80 MG TABS 1 po daily TELMISARTAN 42046362132 Active Tressa Danica Stephens MULTIVITAMINS TABS 1 PO QD MULTIPLE VITAMIN 17146153722 No Longer Active Tressaino Stephens LANTUS SOLOSTAR 100 UNIT/ML SOLN 40 units SQ QHS INSULIN GLARGINE 67195690180 Active Tressa Danica Stephens PATANOL 0.1 % SOLN 2 drops in each eye BID prn OLOPATADINE HCL 08486033824 No Longer Active Tressa Danica Stephens FISH OIL 1000 MG CAPS 2 tabs po TID OMEGA-3 FATTY ACIDS 60425799669 No Longer Active Tressa Danica Stephens PREMARIN 1.25 MG TAB 1 PO daily ESTROGENS CONJUGATED 24099563279 Active Tressa Danica Stephens PEN NEEDLES 1/2" 29G X 12MM MISC as directed on the Lantus Pen INSULIN PEN NEEDLE 37120793061 No Longer Active Tressa Danica Stephens BD INSULIN SYRINGE ULTRAFINE 29G X 1/2" 1 ML MISC as directed DX: Diabetes INSULIN SYRINGE-NEEDLE U-100 28925753216 No Longer Active Tressa Danica Stephens LOVAZA 1 GM CAPS 2 po BID [id number] ETHYL ESTERS 53377597723 Active Tressa Danica Stephens PREDNISONE 10 MG TAB 1 PO daily PREDNISONE 72071188500 No Longer Active Tressa Danica Stephens ALPRAZOLAM 0.25 MG TABS 1/2 to 1 tab po q 8 hrs prn anxiety 07/24 ALPRAZOLAM 47922545033 No Longer Active Tressa Danica Stephens TRANXENE-T 7.5 MG TABS 1 po BID prn CLORAZEPATE DIPOTASSIUM 01286457766 Active Tressa Danica Stephens ZESTRIL 20 MG TABS 1 po daily LISINOPRIL 36882608322 No Longer Active Tressa Danica Stephens MUCINEX 600 MG [id number] 1 po TID GUAIFENESIN 16805627564 Active Tressa Danica Stephens DARVOCET-N 100 100-650 MG TAB 1 PO Q6hrs prn pain PROPOXYPHENE N-APAP 56359078926 No Longer Active Tressa Danica Stephens METANX 2.8-25-2 MG TABS 1 PO daily [id number] 98931491265 No Longer Active Tressa Danica Stephens SINEMET 25-100 MG TABS 2 PO BID prn CARBIDOPA-LEVODOPA 45180047989 No Longer Active Tressa Danica Stephens LOVAZA 1 GM CAPS 2 po BID [id number] ETHYL ESTERS 93754740458 No Longer Active Tressa Danica Stephens LORTAB 10 TABS 1 po q 4 hrs prn pain HYDROCODONE- ACETAMINOPHEN TABS 60179258339 No Longer Active Tressa Danica Stephens CALCIUM 600 + D 600-200 MG-UNIT TABS 1 po daily CALCIUM CARBONATE-VITAMIN D 19941277480 Active Tressa Danica Stephens VITAMIN C 500 MG TABS 1 po BID ASCORBIC ACID 10737472093 Active Tressa Danica Stephens CLORAZEPATE DIPOTASSIUM 3.75 MG TABS 1 tab 2 times daily prn CLORAZEPATE DIPOTASSIUM 23221488315 No Longer Active Tressa Danica Stephens PRILOSEC 20 MG CAP CR 1 PO QD OMEPRAZOLE 44007165049 No Longer Active Tressa Danica tSephens PREMARIN 1.25 MG TABS 1 po daily ESTROGENS CONJUGATED 42253780642 No Longer Active Tressa Danica Stephens LIPITOR 20 MG TABS 1 po daily ATORVASTATIN CALCIUM 34752989432 No Longer Active Tressa Danica Stephens CLONIDINE HCL 0.1 MG TAB 1 po BID CLONIDINE HCL 71627619013 No Longer Active Tressa Danica Stephens ACCURETIC 20-12.5 MG TABS 2 PO QAM QUINAPRIL- HYDROCHLOROTHIAZIDE 03995874839 No Longer Active Tressa Danica Stephens MICARDIS 80 MG TABS 1 PO QPM TELMISARTAN 25085274681 No Longer Active Tressa Danica Stephens GLUCOVANCE 5-500 MG TABS 1 tab po BID GLYBURIDE-METFORMIN 42300680668 No Longer Active Tressa Danica Stephens LEVEMIR 100 UNIT/ML SOLN 40 units at HS INSULIN DETEMIR 20301794167 No Longer Active Tressa Danica Stephens TAMIFLU 75 MG CAPS 1 PO daily for 10 days OSELTAMIVIR PHOSPHATE 73550545583 No Longer Active Matthieu Sonya PREDNISONE 10 MG TABS 1 PO Daily PREDNISONE 50825024680 No Longer Active Tressa Danica Stephens LANTUS 100 UNIT/ML SOLN (INSULIN GLARGINE) PEN Take 32 units SQ QHS LANTUS 100 UNIT/ML SOLN (INSULIN GLARGINE) PEN No Longer Active Tressa Stephens CEFTIN 250 MG TABS 1 PO BID CEFUROXIME AXETIL 44377631907 No Longer Active Tressa Danica LAW'S NASAL SPRAY (DEXAMETHASONE, GENTAMICIN, SALINE) 2 puffs each nostril TID for [address] MYERS NASAL SPRAY ( DEXAMETHASONE, GENTAMICIN, SALINE) No Longer Active Tressa Danica Stephens ATROVENT 0.06 % SOLN 2 puffs each nostril TID prn runny nose and sinus drainage IPRATROPIUM BROMIDE 57072767720 No Longer Active Tressa Danica Stephens MUCINEX DM 30-600 MG TB12 1 PO Q12hrs DEXTROMETHORPHAN- GUAIFENESIN 29237674087 No Longer Active Tressaino Stephens ADVAIR DISKUS 100-50 MCG/DOSE MISC 1 puff BID FLUTICASONE-SALMETEROL 49856188505 No Longer Active Tressaino Stephens ROBITUSSIN A-C 10-100 MG/5ML SYRUP 1 teaspoon PO Q 4-6 hr prn ROBITUSSIN A-C 10-100 MG/5ML SYRUP 39190847299 No Longer Active Tressa Danica Stephens TESSALON 200 MG CAPS 1 PO TID prn cough BENZONATATE 39526935031 No Longer Active Bhumi Merando ROBITUSSIN A-C 10-100 MG/5ML SYRUP 1 teaspoon PO Q 4-6 hr prn ROBITUSSIN A-C 10-100 MG/5ML SYRUP 21929686716 No Longer Active Bhumi Merando DARVOCET-N 100 100-650 MG TABS 1 po q 4 hrs. prn PROPOXYPHENE N-APAP 33727482220 No Longer Active Tressa Danica Stephens SALSALATE 750 MG TABS 1 po QID prn SALSALATE 13505246973 No Longer Active Tressa Danica Stephens DAGOBERTO 180 MG TABS 1 PO QD FEXOFENADINE HCL 91317544148 No Longer Active Tressa Danica LAW'Wero NASAL SPRAY (DEXAMETHASONE, GENTAMICIN, SALINE) 2 puffs each nostril TID DR. MYERS NASAL SPRAY (DEXAMETHASONE, GENTAMICIN, SALINE) No Longer Active Tressaino Stephens AMOXICILLIN 500 MG CAP 1 PO TID AMOXICILLIN 06278737212 No Longer Active Tressa Danica Stephens AVANDIA 8 MG TABS 1 po daily ROSIGLITAZONE MALEATE 14727188671 No Longer Active Tressa Danica Stephens DICLOFENAC POTASSIUM 50 MG TABS 1 po TID DICLOFENAC POTASSIUM 25784155727 No Longer Active Tressa Danica Stephens DAGOBERTO 180 MG TABS 1 PO QD FEXOFENADINE HCL 93220732472 No Longer Active Tressa Danica Stephens DRIXORAL 6-120 MG TB12 1 sparingly DEXBROMPHENIRAMINE -PSEUDOEPH 27050635372 No Longer Active Tressa Danica Stephens TOY PLUS EXTRA STRENGTH 500 MG TABS 1 PO daily ASPIRIN BUFFERED 36259297665 No Longer Active Tressa Danica Stephens DETROL LA 4 MG CP24 1 PO daily TOLTERODINE TARTRATE 24818773677 Active Tressa Danica Stephens B-D U/F PEN NEEDLE 31G X 8 MM MISC 1 PO daily Dx: DM Type II INSULIN PEN NEEDLE 50114572958 Active Tressa Danica Stephens OMACOR 1 PO daily OMACOR No Longer Active Tressa Danica Stephens [employer] STRIPS STRP as directed TID Dx: DM Type II GLUCOSE BLOOD 38298845717 Active Narayan Fortune LOVENOX 40 MG/0.4ML SOLN 1 injection daily. Begin Friday05/03/05. ENOXAPARIN SODIUM 42694816374 No Longer Active Tressa Stephens FLUVIRIN INJ done at health dept INFLUENZA VAC TYP A& B SURF ANT 82336709459 No Longer Active Tressa Stephens PNEUMOVAX 23 25 MCG/0.5ML INJ done from health dept PNEUMOCOCCAL VAC POLYVALENT 98716307080 No Longer Active Tressa Stephens MUCINEX 600 MG TB12 1 PO Q12hrs GUAIFENESIN 48735999199 No Longer Active Tressa Stephens HUMALOG MIX 75/25 75-25 % SUSP 26 units in am, 19 units in pm INSULIN LISP & LISP PROT (HUM) 79942872844 No Longer Active Tressa Stephens MULTIVITAMINS TABS 1 po daily MULTIPLE VITAMIN 37457391979 Active Tressa Stephens NEXIUM 40 MG CPDR 1 po daily ESOMEPRAZOLE MAGNESIUM 17783201672 No Longer Active Tressa Stephens NORVASC 10 MG TABS 1 po daily AMLODIPINE BESYLATE 61754902332 Active Tressa Stephens Immunizations Vaccine Administration Date [...] % Encounters Code Encounter Date Provider Facility CPT-34278 Ofc Vst, Est Level IV 17:19:02 PRINTING SPECIALIST Tressa Stephens DO, FACP CPT-20832 Ofc Vst, Est Level IV 16:15:30 PRINTING SPECIALIST Tressa Stephens DO, FACP CPT-79690 Ofc Vst, Est Level IV 17:12:11 PRINTING SPECIALIST Tressa Stephens DO, FACP CPT-41885 Ofc Vst, Est Level IV 16:52:17 PRINTING SPECIALIST Tressa Danica Stephens Tressa S Stephens, DO, FACP CPT-77256 Ofc Vst, Est Level III 16:30:23 CDT Tressa Danica Conteh Stephens, DO, FACP CPT-37260 Ofc Vst, Est Level III 17:01:51 CDT Tressa Danica Conteh Stephens, DO, FACP CPT-33227 Ofc Vst, Est Level IV 17:35:57 CDT Tressa Danica Conteh Stephens, DO, FACP CPT-71836 Ofc Vst, Est Level III 12:47:22 CDT Tressa Danica Conteh Stephens, DO, FACP CPT-34274 Ofc Vst, Est Level IV 13:16:37 CDT Tressa Danica Conteh Stephens, DO, FACP CPT-75549 Ofc Vst, Est Level III 21:22:47 CDT Tressa Danica Conteh Stephens, DO, FACP CPT-21412 Ofc Vst, Est Level III 20:42:44 PRINTING SPECIALIST Tressa Danica Conteh Stephens, DO, FACP CPT-97399 Ofc Vst, Est Level III 13:42:40 PRINTING SPECIALIST Tressa Danica Conteh Stephens, DO, FACP CPT-36914 Ofc Vst, Est Level IV 12:48:28 PRINTING SPECIALIST Tressa Danica Conteh Stephens, DO, FACP CPT-69892 Ofc Vst, Est Level III 15:04:48 CDT Tressa Danica Conteh Stephens, DO, FACP CPT-21482 Ofc Vst, Est Level IV 17:19:18 CDT Tressa Danica Bustillos S Stephens, DO, FACP CPT-23681 Ofc Vst, Est Level III 09:04:25 CDT Tressa Danica Conteh Kat, DO, FACP CPT-23860 Ofc Vst, Est Level III 16:10:44 CDT Tressa Danica Conteh Stephens, DO, FACP CPT-80655 Ofc Vst, Est Level IV 20:58:16 PRINTING SPECIALIST Tressa Danica Conteh Stephens, DO, FACP CPT-91388 Ofc Vst, Est Level IV 10:28:49 PRINTING SPECIALIST Tressa Danica Conteh Stephens, DO, FACP CPT-03558 Ofc Vst, Est Level III 14:30:37 PRINTING SPECIALIST Tressa Danica Conteh Stephens, DO, FACP CPT-45087 Ofc Vst, Est Level IV 11:15:48 CDT Tressa Danica Conteh Kat, DO, FACP CPT-23462 Ofc Vst, Est Level IV 11:15:33 CDT Tressa Danica Conteh Kat, DO, FACP CPT-53080 Ofc Vst, Est Level IV 11:30:32 CDT Tressa Danica Conteh Stephens, DO, FACP CPT-81611 Ofc Vst, Est Level IV 11:44:55 CDT Tressa Danica Conteh Kat, DO, FACP CPT-64290 Ofc Vst, Est Level IV 14:27:05 CDT Tressaino Conteh Kat, DO, FACP CPT-21962 Ofc Vst, Est Level V 14:28:06 PRINTING SPECIALIST Tressa Danica Conteh Stephens, DO, FACP CPT-46934 Ofc Vst, Est Level IV 12:03:43 PRINTING SPECIALIST Tressa Bustillos S Kat, DO, FACP CPT-26286 Ofc Vst, Est Level V 15:06:48 PRINTING SPECIALIST Tressa Conteh Kat, DO, FACP CPT-65225 Ofc Vst, Est Level III 15:36:23 PRINTING SPECIALIST Tressa Conteh Stephens, DO, FACP CPT-76378 Ofc Vst, Est Level V 15:39:00 CDT Tressa Danica Conteh Stephens, DO, FACP CPT-66741 Ofc Vst, Est Level V 14:02:35 CDT Tressaino Conteh Stephens, DO, FACP CPT-17706 Ofc Vst, Est Level III 15:00:21 CDT Tressaino Conteh Stephens, DO, FACP CPT-81773 Ofc Vst, Est Level IV 13:45:16 CDT Tressa Danica Conteh Stephens, DO, FACP CPT-62077 Ofc Vst, Est Level IV 14:31:48 CDT Tressaino Conteh Kat, DO, FACP CPT-56820 Ofc Vst, Est Level IV 11:14:51 CDT Tressaino Conteh Kat, DO, FACP CPT-57568 Ofc Vst, Est Level IV 14:36:19 CDT Tressaino Conteh Stephens, DO, FACP CPT-17719 Ofc Vst, Est Level IV 15:56:12 PRINTING SPECIALIST Tressa Conteh Kat, DO, FACP CPT-13853 Ofc Vst, Est Level IV 11:37:02 CDT Tressaino Conteh Stephens, DO, FACP CPT-62442 Ofc Vst, Est Level III 11:05:27 CDT Tressa Danica Conteh Stephens, DO, FACP CPT-67548 Ofc Vst, Est Level IV 12:12:37 CDT Tressaino Conteh Stephens, DO, FACP CPT-09641 Ofc Vst, Est Level IV 11:55:51 CDT Tressaino Conteh Stephens, DO, FACP CPT-50221 Ofc Vst, Est Level V 13:46:43 CDT Tressa Danica Conteh Stephens, DO, FACP CPT-08885 Ofc Vst, Est Level IV 14:23:36 CDT Tressa Danica Conteh Stephens, DO, FACP CPT-60964 Ofc Vst, Est Level III 14:59:12 CDT Tressa Danica Conteh Stephens, DO, FACP CPT-06473 Ofc Vst, Est Level IV 16:01:19 CDT Tressa Danica Conteh Kat, DO, FACP CPT-29887 Ofc Vst, Est Level IV 15:21:33 PRINTING SPECIALIST Tressa Conteh Kat, DO, FACP CPT-21727 Ofc Vst, Est Level IV 10:21:01 PRINTING SPECIALIST Tressa Conteh Kat, DO, FACP CPT-20880 Ofc Vst, Est Level V 12:53:03 PRINTING SPECIALIST Tressa Conteh Kat, DO, FACP CPT-30501 Ofc Vst, Est Level IV 10:54:43 CDT Tressa Conteh Kat, DO, FACP CPT-92273 Ofc Vst, Est Level V 10:18:33 CDT Tressaino Conteh Kat, DO, FACP CPT-14633 Ofc Vst, Est Level V 14:14:31 CDT Tressa Danica Conteh Kat, DO, FACP CPT-78683 Ofc Vst, Est Level IV 12:25:33 CDT Tressa Conteh Kat, DO, FACP CPT-18505 Ofc Vst, Est Level IV 15:27:17 CDT Tressa Danica Conteh Kat, DO, FACP CPT-55052 Ofc Vst, Est Level IV 14:47:24 CDT Tressa Danica Conteh Kat, DO, FACP CPT-60879 Ofc Vst, Est Level V 15:19:25 CDT Tressa Danica [facility] CPT-75909 Ofc Vst, Est Level V 11:41:37 CDT Tressa Danica Conteh Stephens, DO, FACP CPT-67309 Ofc Vst, Est Level V 11:12:22 CDT Tressa Danica Conteh Kat, DO, FACP CPT-97258 Ofc Vst, Est Level IV 14:51:16 PRINTING SPECIALIST Tressa Conteh Kat, DO, FACP CPT-18390 Ofc Vst, Est Level IV 11:31:20 PRINTING SPECIALIST Tressa Danica Conteh Kat, DO, FACP CPT-09779 Ofc Vst, Est Level IV 10:35:51 PRINTING SPECIALIST Tressa Conteh Kat, DO, FACP CPT-85216 Ofc Vst, Est Level IV 11:46:27 PRINTING SPECIALIST Tressa Conteh Kat, DO, FACP CPT-29883 Ofc Vst, Est Level IV 09:34:16 PRINTING SPECIALIST Tressa Conteh Kat, DO, FACP CPT-80364 Ofc Vst, Est Level V 11:34:06 PRINTING SPECIALIST Tressa Conteh Kat, DO, FACP CPT-24167 Ofc Vst, Est Level IV 13:57:23 CDT Tressa Danica Bustillos S Kat, DO, FACP CPT-29062 Ofc Vst, Est Level IV 12:34:42 CDT Tressa Danica Conteh Kat, DO, FACP CPT-59933 Ofc Vst, Est Level IV 10:18:20 CDT Tressa Stephens, DO, FACP CPT-74750 Ofc Vst, Est Level IV 10:10:02 PRINTING SPECIALIST Tressa Davisanne Kat Stephens, DO, FACP CPT-27447 Ofc Vst, Est Level IV 15:36:41 PRINTING SPECIALIST Tressa Stephens, DO, FACP CPT-01254 Ofc Vst, Est Level III 10:41:26 PRINTING SPECIALIST Tressa Danica Kat Stephens, DO, FACP CPT-81221 Ofc Vst, Est Level IV 13:29:32 CDT Tressa Stephens, DO, FACP CPT-67508 Ofc Vst, Est Level IV 10:30:12 CDT Tressa Stephens [facility] CPT-51812 Ofc Vst, Est Level IV 11:11:37 PRINTING SPECIALIST Tressa Stephens [facility] CPT-52893 Ofc Vst, Est Level IV 11:06:40 PRINTING SPECIALIST Tressa Stephens [facility] CPT-48701 Ofc Vst, Est Level IV 12:01:24 CDT Tressa Stephens [facility] CPT-95744 Ofc Vst, Est Level IV 11:43:30 CDT Tressa Stephens [facility] CPT-58656 Ofc Vst, Est Level IV 14:22:04 CDT Tressa Stephens [facility] CPT-84594 Ofc Vst, Est Level IV 13:59:46 CDT Trsesa Stephens [facility] CPT-13810 Ofc Vst, Est Level IV 14:02:19 PRINTING SPECIALIST Tressa Stephens [facility] CPT-03522 Ofc Vst, Est Level IV 15:07:12 PRINTING SPECIALIST Tressa Stephens [facility] CPT-48849 Ofc Vst, Est Level IV 15:11:06 PRINTING SPECIALIST Tressa Davisanndre JorgensenStephens [facility] CPT-62421 Ofc Vst, Est Level IV 15:30:27 PRINTING SPECIALIST Tressa Jorgensenner [facility] CPT-36461 Ofc Vst, Est Level IV 11:04:18 PRINTING SPECIALIST Tressa Davisanndre JorgensenStephens [facility] CPT-17570 Ofc Vst, Est Level IV 13:50:55 PRINTING SPECIALIST Tressa Davisanndre JorgensenStephens [facility] CPT-73200 Ofc Vst, Est Level IV 16:27:37 CDT Tressa Danica Stephens [facility] CPT-53927 Ofc Vst, Est Level IV 14:19:58 CDT Tressa Jorgensenner [facility] CPT-83867 Ofc Vst, New Level IV 14:53:27 CDT Tressa Davisanndre JorgensenStephens [facility] [place] Procedures Code Procedure Name Date Entry Date Standard Description CPT-G0439 Medicare Annual Wellness Visit 17:05:42 PRINTING SPECIALIST CPT-G8446 E-Prescribing not done due to controlled substance 21:22 :47 CDT CPT-G8446 E-Prescribing not done due to controlled substance 20:42 :44 PRINTING SPECIALIST CPT-G8445 E-Prescribing Not sent due to no medication given 13:42: 40 PRINTING SPECIALIST CPT-G8445 E-Prescribing Not sent due to no medication given 12:48: 28 PRINTING SPECIALIST CPT-G8445 E-Prescribing Not sent due to no medication given 21:29: 51 PRINTING SPECIALIST CPT-G0439 Medicare Annual Wellness Visit 21:29:51 PRINTING SPECIALIST CPT-G8443 E-Prescribing Medication Sent 15:04:48 CDT CPT-G8446 E-Prescribing not done due to controlled substance 17:19 :18 CDT CPT-G8446 E-Prescribing not done due to controlled substance 09:04 :25 CDT CPT-G8445 E-Prescribing Not sent due to no medication given 16:10: 44 CDT CPT-G8445 E-Prescribing Not sent due to no medication given 20:58: 16 PRINTING SPECIALIST CPT-G8446 E-Prescribing not done due to controlled substance 10:28 :49 PRINTING SPECIALIST CPT-G8443 E-Prescribing Medication Sent 14:30:37 PRINTING SPECIALIST CPT-G8446 E-Prescribing not done due to controlled substance 15:30 :57 CDT CPT-G0438 Medicare Annual Wellness Visit Initial 15:30:57 CDT CPT-67954 Injection, Pneumovax 11:37:02 CDT CPT-8445 E-Prescribing Not sent due to no medication given 15:19: 25 CDT CPT-8445 E-Prescribing Not sent due to no medication given 11:41: 37 CDT CPT-07775 Influenza Vaccine 10:38:35 PRINTING SPECIALIST CPT-G0008 Administration Influenza Vaccine 10:38:35 PRINTING SPECIALIST CPT-07005 Influenza Vaccine 10:03:07 CDT CPT-G0008 Administration Influenza Vaccine 10:03:07 CDT
--- OUTSIDE RECORDS SUMMARY | 2018-04-13 06:50 | XMS REPORT | Clinical Summary ---
Author Author User, ALEXANDREA Organization [facility] Physician [place] Address Unknown Phone Unavailable Allergies, Adverse Reactions, [...] MEQ CR-TABS 1 PO DAILY POTASSIUM CHLORIDE 82066282044 Active Carlyn Marks HYDROXYZINE HCL 25 MG TABS 1 PO TID prn HYDROXYZINE HCL 57322352065 No Longer Active Tressa Stephens VALIUM 2 MG TAB 1-2 PO before MRI procedure DIAZEPAM 00923424500 No Longer Active Tressa Stephens OXYCONTIN 20 MG [id number] 1 PO Q 12hrs scheduled OXYCODONE HCL No Longer Active Tressa Stephens HUMALOG KWIKPEN 100 UNIT/ML SOPN 12 units before each meal INSULIN LISPRO (HUMAN) 53470632523 Active Tressa Danica Stephens PREDNISONE 20 MG TAB 3 PO at one time daily PREDNISONE 60588783778 No Longer Active Tressa Danica Stephens ZOSTAVAX 18309 UNT/0.65ML SOLR 1 injection once to prevent Shingles ZOSTER VACCINE LIVE 68502104437 No Longer Active Tressa Danica Stephens VOLTAREN 1 % GEL Apply to affected area twice daily prn pain. DICLOFENAC SODIUM 00554765856 No Longer Active Tressaino Stephens ASTEPRO 0.15 % SOLN 1 puff each nostril TID AZELASTINE HCL 02015955872 No Longer Active Tressa Danica Stephens CELEXA 20 MG TABS 1 PO daily CITALOPRAM HYDROBROMIDE 10253093138 No Longer Active Tressa Danica Stephens KEFLEX 500 MG CAP 1 PO TID for 7 days CEPHALEXIN 44228017077 No Longer Active Carlyn Marks SYNTHROID 150 MCG TABS 1 PO Daily LEVOTHYROXINE SODIUM 63361838999 Active Carlyn Marks NEURONTIN 300 MG CAP 1-2 PO BID GABAPENTIN 29990910839 Active Tressa Danica ACEVEDO ODT 8 MG TBDP 1 po q 6hrs prn nausea ONDANSETRON 47948171425 No Longer Active Tressa Danica Stephens CARAFATE 1 GM TABS 1 PO 30 minutes before meals and at bedtime SUCRALFATE 79209105123 No Longer Active Tressa Danica Stephens SYNTHROID 150 MCG TABS 1 PO every other day alternating with 137mcg LEVOTHYROXINE SODIUM 56594474282 No Longer Active Tressa Danica Stephens INDOMETHACIN 50 MG CAPS 1 PO TID for 5 days INDOMETHACIN 60113286324 No Longer Active Tressa Stephens PREDNISONE 5 MG TABS 2 Po daily for 2 weeks and then change to 1 PO daily for 2 weeks. PREDNISONE 14685596985 No Longer Active Tressa Stephens XANAX 0.25 MG TABS 1-2 PO Q6hrs prn ALPRAZOLAM 97973134490 Active Tressa Stephens LASIX 20 MG TAB 1 PO BID prn swelling FUROSEMIDE 69067437596 Active Tressaino Stephens PREDNISONE 20 MG TAB 1 PO daily PREDNISONE 90317140771 No Longer Active Tressa Stpehens FLUDROCORTISONE ACETATE 0.1 MG TABS 1 PO daily FLUDROCORTISONE ACETATE 63248222518 No Longer Active Tressa Stephens ACCURETIC 20-12.5 MG TABS 1 PO daily QUINAPRIL- HYDROCHLOROTHIAZIDE 44748823463 No Longer Active Tressa Stephens SYNTHROID 150 MCG TABS 1 PO alternating with 137 mcg every other day LEVOTHYROXINE SODIUM 88046395938 No Longer Active Tressa Stephens OXYCODONE HCL 10 MG TABS 2 PO Q4hrs prn OXYCODONE HCL 91387975492 Active Carlyn Marks OXYCONTIN 20 MG [id number] 1 PO Q12hrs scheduled OXYCODONE HCL 29355961450 No Longer Active Tressa Stephens COREG 12.5 MG TABS 1 PO BID for Blood pressure (on hold 04/30) CARVEDILOL 32407136515 No Longer Active Tressa Stephens DAGOBERTO 180 MG TABS 1 PO QD FEXOFENADINE HCL Active Tressaino Stephens ZOCOR 20 MG TAB 1 PO daily SIMVASTATIN 03218928405 Active Tressa Stephens MIRALAX POWD 1 scoop in 4oz of water PO BID POLYETHYLENE GLYCOL 3350 31537134955 Active Susanna Bruno DARVOCET-N 100 100-650 MG TAB 1 PO Q6hrs prn pain PROPOXYPHENE N-APAP 86500806277 No Longer Active Tressa Danica LAW'Wero NASAL SPRAY (DEXAMETHASONE, GENTAMICIN, SALINE) 2 puffs each nostril TID x [address] MYERS NASAL SPRAY ( DEXAMETHASONE, GENTAMICIN, SALINE) No Longer Active Tressa Danica Stephens SINEMET 25-100 MG TABS 1 po TID CARBIDOPA-LEVODOPA 61370019407 Active Tressa Danica Stephens BENADRYL 25 MG CAP 1 PO Q6hrs prn itching DIPHENHYDRAMINE HCL 46938380014 No Longer Active Tressa Danica Stephens NEXIUM 40 MG CPDR 1 PO daily ESOMEPRAZOLE MAGNESIUM 76623145003 Active Tressa Danica Stephens K-PHOS TABS 1 po BID POTASSIUM PHOSPHATE MONOBASIC TABS 79320523752 No Longer Active Tressa Danica Stephens MICARDIS 80 MG TABS 1 po daily TELMISARTAN 35052616184 Active Tressa Danica Stephens MULTIVITAMINS TABS 1 PO QD MULTIPLE VITAMIN 34217329610 No Longer Active Tressaino Stephens LANTUS SOLOSTAR 100 UNIT/ML SOLN 40 units SQ QHS INSULIN GLARGINE 67938669891 Active Tressa Danica Stephens PATANOL 0.1 % SOLN 2 drops in each eye BID prn OLOPATADINE HCL 89790595993 No Longer Active Tressa Danica Stephens FISH OIL 1000 MG CAPS 2 tabs po TID OMEGA-3 FATTY ACIDS 37222365958 No Longer Active Tressa Danica Stephens PREMARIN 1.25 MG TAB 1 PO daily ESTROGENS CONJUGATED 61658605969 Active Tressa Danica Stephens PEN NEEDLES 1/2" 29G X 12MM MISC as directed on the Lantus Pen INSULIN PEN NEEDLE 35209505652 No Longer Active Tressa Danica Stephens BD INSULIN SYRINGE ULTRAFINE 29G X 1/2" 1 ML MISC as directed DX: Diabetes INSULIN SYRINGE-NEEDLE U-100 01458122858 No Longer Active Tressa Danica Stephens LOVAZA 1 GM CAPS 2 po BID [id number] ETHYL ESTERS 68488620034 Active Tressa Danica Stephens PREDNISONE 10 MG TAB 1 PO daily PREDNISONE 82249048691 No Longer Active Tressa Danica Stephens ALPRAZOLAM 0.25 MG TABS 1/2 to 1 tab po q 8 hrs prn anxiety 07/24 ALPRAZOLAM 93021769651 No Longer Active Tressa Danica Stephens TRANXENE-T 7.5 MG TABS 1 po BID prn CLORAZEPATE DIPOTASSIUM 75651090461 Active Tressa Danica Stephens ZESTRIL 20 MG TABS 1 po daily LISINOPRIL 16278905104 No Longer Active Tressa Danica Stephens MUCINEX 600 MG [id number] 1 po TID GUAIFENESIN 06091427235 Active Tressa Danica Stephens DARVOCET-N 100 100-650 MG TAB 1 PO Q6hrs prn pain PROPOXYPHENE N-APAP 16766795988 No Longer Active Tressa Danica Stephens METANX 2.8-25-2 MG TABS 1 PO daily [id number] 98633469019 No Longer Active Tressa Danica Stephens SINEMET 25-100 MG TABS 2 PO BID prn CARBIDOPA-LEVODOPA 93145712872 No Longer Active Tressa Danica Stephens LOVAZA 1 GM CAPS 2 po BID [id number] ETHYL ESTERS 02217779641 No Longer Active Tressa Danica Stephens LORTAB 10 TABS 1 po q 4 hrs prn pain HYDROCODONE- ACETAMINOPHEN TABS 27939247304 No Longer Active Tressa Danica Stephens CALCIUM 600 + D 600-200 MG-UNIT TABS 1 po daily CALCIUM CARBONATE-VITAMIN D 84051659315 Active Tressa Danica Stephens VITAMIN C 500 MG TABS 1 po BID ASCORBIC ACID 30874127519 Active Tressa Danica Stephens CLORAZEPATE DIPOTASSIUM 3.75 MG TABS 1 tab 2 times daily prn CLORAZEPATE DIPOTASSIUM 65505527828 No Longer Active Tressa Danica Stephens PRILOSEC 20 MG CAP CR 1 PO QD OMEPRAZOLE 04792995547 No Longer Active Tressa Danica Stephens PREMARIN 1.25 MG TABS 1 po daily ESTROGENS CONJUGATED 51440548585 No Longer Active Tressa Danica Stephens LIPITOR 20 MG TABS 1 po daily ATORVASTATIN CALCIUM 63971723996 No Longer Active Tressa Danica Stephens CLONIDINE HCL 0.1 MG TAB 1 po BID CLONIDINE HCL 96854226357 No Longer Active Tressa Danica Stephens ACCURETIC 20-12.5 MG TABS 2 PO QAM QUINAPRIL- HYDROCHLOROTHIAZIDE 75056389714 No Longer Active Tressa Danica Stephens MICARDIS 80 MG TABS 1 PO QPM TELMISARTAN 75539849190 No Longer Active Tressa Danica Stephens GLUCOVANCE 5-500 MG TABS 1 tab po BID GLYBURIDE-METFORMIN 57873049682 No Longer Active Tressa Danica Stephens LEVEMIR 100 UNIT/ML SOLN 40 units at HS INSULIN DETEMIR 87062474765 No Longer Active Tressa Danica Stephens TAMIFLU 75 MG CAPS 1 PO daily for 10 days OSELTAMIVIR PHOSPHATE 87633888271 No Longer Active Matthieu Sonya PREDNISONE 10 MG TABS 1 PO Daily PREDNISONE 80890017209 No Longer Active Tressa Danica Stephens LANTUS 100 UNIT/ML SOLN (INSULIN GLARGINE) PEN Take 32 units SQ QHS LANTUS 100 UNIT/ML SOLN (INSULIN GLARGINE) PEN No Longer Active Tressa Stephens CEFTIN 250 MG TABS 1 PO BID CEFUROXIME AXETIL 50091374303 No Longer Active Tressaino LAW'Wero NASAL SPRAY (DEXAMETHASONE, GENTAMICIN, SALINE) 2 puffs each nostril TID for [address] MYERS NASAL SPRAY ( DEXAMETHASONE, GENTAMICIN, SALINE) No Longer Active Tressaino Stephens ATROVENT 0.06 % SOLN 2 puffs each nostril TID prn runny nose and sinus drainage IPRATROPIUM BROMIDE 60547425372 No Longer Active Tressaino Stephens MUCINEX DM 30-600 MG TB12 1 PO Q12hrs DEXTROMETHORPHAN- GUAIFENESIN 63436794790 No Longer Active Tressa Stephens ADVAIR DISKUS 100-50 MCG/DOSE MISC 1 puff BID FLUTICASONE-SALMETEROL 17259288906 No Longer Active Tressaino Stephens ROBITUSSIN A-C 10-100 MG/5ML SYRUP 1 teaspoon PO Q 4-6 hr prn ROBITUSSIN A-C 10-100 MG/5ML SYRUP 69127326292 No Longer Active Tressaino Stephens TESSALON 200 MG CAPS 1 PO TID prn cough BENZONATATE 10347984788 No Longer Active Bhumi Merando ROBITUSSIN A-C 10-100 MG/5ML SYRUP 1 teaspoon PO Q 4-6 hr prn ROBITUSSIN A-C 10-100 MG/5ML SYRUP 83749196356 No Longer Active Bhumi Mermayao DARVOCET-N 100 100-650 MG TABS 1 po q 4 hrs. prn PROPOXYPHENE N-APAP 52940057237 No Longer Active Tressa Danica Stephens SALSALATE 750 MG TABS 1 po QID prn SALSALATE 29162722753 No Longer Active Tressa Danica Stephens DAGOBERTO 180 MG TABS 1 PO QD FEXOFENADINE HCL 95488263607 No Longer Active Tressa Danica LAW'S NASAL SPRAY (DEXAMETHASONE, GENTAMICIN, SALINE) 2 puffs each nostril TID DR. MYERS NASAL SPRAY (DEXAMETHASONE, GENTAMICIN, SALINE) No Longer Active Tressa Danica Stephens AMOXICILLIN 500 MG CAP 1 PO TID AMOXICILLIN 47537879542 No Longer Active Tressa Danica Stephens AVANDIA 8 MG TABS 1 po daily ROSIGLITAZONE MALEATE 05409216644 No Longer Active Tressa Danica Stephens DICLOFENAC POTASSIUM 50 MG TABS 1 po TID DICLOFENAC POTASSIUM 88483250995 No Longer Active Tressa Danica Stephens DAGOBERTO 180 MG TABS 1 PO QD FEXOFENADINE HCL 58313003345 No Longer Active Tressa Danica Stephens DRIXORAL 6-120 MG TB12 1 sparingly DEXBROMPHENIRAMINE -PSEUDOEPH 33829792989 No Longer Active Tressa Danica Stephens TOY PLUS EXTRA STRENGTH 500 MG TABS 1 PO daily ASPIRIN BUFFERED 92399053888 No Longer Active Tressa Danica Stephens DETROL LA 4 MG CP24 1 PO daily TOLTERODINE TARTRATE 79924745949 Active Tressa Danica Stephens B-Aba U/F PEN NEEDLE 31G X 8 MM MISC 1 PO daily Dx: DM Type II INSULIN PEN NEEDLE 31378897603 Active Tressa Danica Stephens OMACOR 1 PO daily OMACOR No Longer Active Tressa Danica Stephens [employer]OD[employer] STRIPS STRP as directed TID Dx: DM Type II GLUCOSE BLOOD 37714798916 Active Narayan Fortune LOVENOX 40 MG/0.4ML SOLN 1 injection daily. Begin Friday05/03/05. ENOXAPARIN SODIUM 14801576999 No Longer Active Tressa Stephens FLUVIRIN INJ done at health dept INFLUENZA VAC TYP A& B SURF ANT 42237107098 No Longer Active Tressa Stephens PNEUMOVAX 23 25 MCG/0.5ML INJ done from health dept PNEUMOCOCCAL VAC POLYVALENT 03667144608 No Longer Active Tressa Stephens MUCINEX 600 MG TB12 1 PO Q12hrs GUAIFENESIN 27401615820 No Longer Active Tressa Stephens HUMALOG MIX 75/25 75-25 % SUSP 26 units in am, 19 units in pm INSULIN LISP & LISP PROT (HUM) 05988373158 No Longer Active Tressa Stephens MULTIVITAMINS TABS 1 po daily MULTIPLE VITAMIN 64683630072 Active Tressa Stephens NEXIUM 40 MG CPDR 1 po daily ESOMEPRAZOLE MAGNESIUM 14658060075 No Longer Active Tressa Stephens NORVASC 10 MG TABS 1 po daily AMLODIPINE BESYLATE 28943375558 Active Tressa Stephens Immunizations Vaccine Administration Date [...] % Encounters Code Encounter Date Provider Facility CPT-92010 Ofc Vst, Est Level IV 17:19:02 MEDICAL SOCIAL WORKER Tressa Stephens DO, FACP CPT-24695 Ofc Vst, Est Level IV 16:15:30 MEDICAL SOCIAL WORKER Tressa Stephens DO, FACP CPT-00129 Ofc Vst, Est Level IV 17:12:11 MEDICAL SOCIAL WORKER Tressa Stephens DO, FACP CPT-76037 Ofc Vst, Est Level IV 16:52:17 MEDICAL SOCIAL WORKER Tressa Danica Stephens Tressa S Stephens, DO, FACP CPT-03329 Ofc Vst, Est Level III 16:30:23 CDT Tressa Danica Conteh Stephens, DO, FACP CPT-18705 Ofc Vst, Est Level III 17:01:51 CDT Tressa Danica Conteh Stephens, DO, FACP CPT-39432 Ofc Vst, Est Level IV 17:35:57 CDT Tressa Danica Conteh Stephens, DO, FACP CPT-48387 Ofc Vst, Est Level III 12:47:22 CDT Tressa Danica Conteh Kat, DO, FACP CPT-77012 Ofc Vst, Est Level IV 13:16:37 CDT Tressa Danica Conteh Kat, DO, FACP CPT-21932 Ofc Vst, Est Level III 21:22:47 CDT Tressa Danica Conteh Kat, DO, FACP CPT-20496 Ofc Vst, Est Level III 20:42:44 MEDICAL SOCIAL WORKER Tressa Danica Conteh Kat, DO, FACP CPT-00192 Ofc Vst, Est Level III 13:42:40 MEDICAL SOCIAL WORKER Tressa Danica Conteh Stephens, DO, FACP CPT-52485 Ofc Vst, Est Level IV 12:48:28 MEDICAL SOCIAL WORKER Tressa Danica Conteh Kat, DO, FACP CPT-35028 Ofc Vst, Est Level III 15:04:48 CDT Tressa Danica Bustillos S Kat, DO, FACP CPT-84299 Ofc Vst, Est Level IV 17:19:18 CDT Tressa Danica Conteh Kat, DO, FACP CPT-42339 Ofc Vst, Est Level III 09:04:25 CDT Tressa Danica Conteh Kat, DO, FACP CPT-21948 Ofc Vst, Est Level III 16:10:44 CDT Tressaino Conteh Stephens, DO, FACP CPT-60261 Ofc Vst, Est Level IV 20:58:16 MEDICAL SOCIAL WORKER Tressa Conteh Stephens, DO, FACP CPT-29136 Ofc Vst, Est Level IV 10:28:49 MEDICAL SOCIAL WORKER Tressa Conteh Stephens, DO, FACP CPT-77414 Ofc Vst, Est Level III 14:30:37 MEDICAL SOCIAL WORKER Tressa Conteh Stephens, DO, FACP CPT-63016 Ofc Vst, Est Level IV 11:15:48 CDT Tressa Conteh Stephens, DO, FACP CPT-78375 Ofc Vst, Est Level IV 11:15:33 CDT Tressa Danica Conteh Stephens, DO, FACP CPT-63972 Ofc Vst, Est Level IV 11:30:32 CDT Tressaino Conteh Stephens, DO, FACP CPT-58062 Ofc Vst, Est Level IV 11:44:55 CDT Tressaino Conteh Stephens, DO, FACP CPT-35272 Ofc Vst, Est Level IV 14:27:05 CDT Tressaino Conteh Stephens, DO, FACP CPT-65720 Ofc Vst, Est Level V 14:28:06 MEDICAL SOCIAL WORKER Tressa Conteh Stephens, DO, FACP CPT-37789 Ofc Vst, Est Level IV 12:03:43 MEDICAL SOCIAL WORKER Tressa Conteh Stephens, DO, FACP CPT-00893 Ofc Vst, Est Level V 15:06:48 MEDICAL SOCIAL WORKER Tressa Conteh Stephens, DO, FACP CPT-00473 Ofc Vst, Est Level III 15:36:23 MEDICAL SOCIAL WORKER Tressa Conteh Stephens, DO, FACP CPT-30385 Ofc Vst, Est Level V 15:39:00 CDT Tressa Danica Conteh Stephens, DO, FACP CPT-91604 Ofc Vst, Est Level V 14:02:35 CDT Tressa Danica Conteh Stephens, DO, FACP CPT-01227 Ofc Vst, Est Level III 15:00:21 CDT Tressaino Conteh Stephens, DO, FACP CPT-62414 Ofc Vst, Est Level IV 13:45:16 CDT Tressa Danica Conteh Kat, DO, FACP CPT-17830 Ofc Vst, Est Level IV 14:31:48 CDT Tressaino Conteh Kat, DO, FACP CPT-94553 Ofc Vst, Est Level IV 11:14:51 CDT Tressaino Conteh Kat, DO, FACP CPT-66992 Ofc Vst, Est Level IV 14:36:19 CDT Tressaino Conteh Kat, DO, FACP CPT-42166 Ofc Vst, Est Level IV 15:56:12 MEDICAL SOCIAL WORKER Tressa Conteh Kat, DO, FACP CPT-32218 Ofc Vst, Est Level IV 11:37:02 CDT Tressa Danica Conteh Stephens, DO, FACP CPT-09734 Ofc Vst, Est Level III 11:05:27 CDT Tressa Danica Bustillos S Stephens, DO, FACP CPT-29955 Ofc Vst, Est Level IV 12:12:37 CDT Tressaino Conteh Kat, DO, FACP CPT-71453 Ofc Vst, Est Level IV 11:55:51 CDT Tressa Danica Conteh Stephens, DO, FACP CPT-21085 Ofc Vst, Est Level V 13:46:43 CDT Tressa Danica Conteh Stephens, DO, FACP CPT-28192 Ofc Vst, Est Level IV 14:23:36 CDT Tressa Danica Conteh Stephens, DO, FACP CPT-70327 Ofc Vst, Est Level III 14:59:12 CDT Tressa Danica Conteh Kat, DO, FACP CPT-20424 Ofc Vst, Est Level IV 16:01:19 CDT Tressa Danica Conteh Kat, DO, FACP CPT-82976 Ofc Vst, Est Level IV 15:21:33 MEDICAL SOCIAL WORKER Tressa Conteh Kat, DO, FACP CPT-08603 Ofc Vst, Est Level IV 10:21:01 MEDICAL SOCIAL WORKER Tressaino Conteh Kat, DO, FACP CPT-37212 Ofc Vst, Est Level V 12:53:03 MEDICAL SOCIAL WORKER Tressa Conteh Stephens, DO, FACP CPT-45374 Ofc Vst, Est Level IV 10:54:43 CDT Tressaino Conteh Kat, DO, FACP CPT-62644 Ofc Vst, Est Level V 10:18:33 CDT Tressa Danica Conteh Kat, DO, FACP CPT-91038 Ofc Vst, Est Level V 14:14:31 CDT Tressa Danica Conteh Kat, DO, FACP CPT-59428 Ofc Vst, Est Level IV 12:25:33 CDT Tressa Danica Conteh Kat, DO, FACP CPT-28577 Ofc Vst, Est Level IV 15:27:17 CDT Tressa Danica Conteh Kat, DO, FACP CPT-04976 Ofc Vst, Est Level IV 14:47:24 CDT Tressaino Conteh Stephens, DO, FACP CPT-71044 Ofc Vst, Est Level V 15:19:25 CDT Tressa Danica [facility] CPT-22632 Ofc Vst, Est Level V 11:41:37 CDT Tressa Danica Conteh Stephens, DO, FACP CPT-10090 Ofc Vst, Est Level V 11:12:22 CDT Tressa Danica Conteh Stephens, DO, FACP CPT-17264 Ofc Vst, Est Level IV 14:51:16 MEDICAL SOCIAL WORKER Tressa Conteh Kat, DO, FACP CPT-24980 Ofc Vst, Est Level IV 11:31:20 MEDICAL SOCIAL WORKER Tressaino Conteh Kat, DO, FACP CPT-95009 Ofc Vst, Est Level IV 10:35:51 MEDICAL SOCIAL WORKER Tressaino Conteh Stephens, DO, FACP CPT-31988 Ofc Vst, Est Level IV 11:46:27 MEDICAL SOCIAL WORKER Tressa Conteh Stephens, DO, FACP CPT-06086 Ofc Vst, Est Level IV 09:34:16 MEDICAL SOCIAL WORKER Tressa Conteh Stephens, DO, FACP CPT-47652 Ofc Vst, Est Level V 11:34:06 MEDICAL SOCIAL WORKER Tressa Conteh Stephens, DO, FACP CPT-38917 Ofc Vst, Est Level IV 13:57:23 CDT Tressa oCnteh Stephens, DO, FACP CPT-21407 Ofc Vst, Est Level IV 12:34:42 CDT Tressaino Conteh Kat, DO, FACP CPT-51542 Ofc Vst, Est Level IV 10:18:20 CDT Tressa Stephens, DO, FACP CPT-05505 Ofc Vst, Est Level IV 10:10:02 MEDICAL SOCIAL WORKER Tressa Danica Kat Stephens, DO, FACP CPT-66883 Ofc Vst, Est Level IV 15:36:41 MEDICAL SOCIAL WORKER Tressa Danica Kat Stephens, DO, FACP CPT-26947 Ofc Vst, Est Level III 10:41:26 MEDICAL SOCIAL WORKER Tressa Mishra Kat Stephens, DO, FACP CPT-80300 Ofc Vst, Est Level IV 13:29:32 CDT Tressa Danica Kat Stephens, DO, FACP CPT-05080 Ofc Vst, Est Level IV 10:30:12 CDT Tressa Stephens [facility] [place] CPT-16513 Ofc Vst, Est Level IV 11:11:37 MEDICAL SOCIAL WORKER Tressa Stephens [facility] [place] CPT-48123 Ofc Vst, Est Level IV 11:06:40 MEDICAL SOCIAL WORKER Tressa Stephens [facility] [place] CPT-11404 Ofc Vst, Est Level IV 12:01:24 CDT Tressa Stephens [facility] [place] CPT-02273 Ofc Vst, Est Level IV 11:43:30 CDT Tressa Stephens [facility] [place] CPT-64832 Ofc Vst, Est Level IV 14:22:04 CDT Tressa Stephens [facility] [place] CPT-87814 Ofc Vst, Est Level IV 13:59:46 CDT Tressa Stephens [facility] [place] CPT-67406 Ofc Vst, Est Level IV 14:02:19 MEDICAL SOCIAL WORKER Tressa Stephens [facility] [place] CPT-73260 Ofc Vst, Est Level IV 15:07:12 MEDICAL SOCIAL WORKER Tressa Stephens [facility] [place] CPT-65745 Ofc Vst, Est Level IV 15:11:06 MEDICAL SOCIAL WORKER Tressa Davisanndre JorgensenStephens [facility] [place] CPT-10323 Ofc Vst, Est Level IV 15:30:27 MEDICAL SOCIAL WORKER Tressa Jorgensenner [facility] [place] CPT-64801 Ofc Vst, Est Level IV 11:04:18 MEDICAL SOCIAL WORKER Tressa Davisanndre JorgensenStephens [facility] [place] CPT-08469 Ofc Vst, Est Level IV 13:50:55 MEDICAL SOCIAL WORKER Tressa Jorgensenner [facility] [place] CPT-69150 Ofc Vst, Est Level IV 16:27:37 CDT Tressa Danica [facility] [place] CPT-08641 Ofc Vst, Est Level IV 14:19:58 CDT Tressa [facility]orgensenner [facility] [place] CPT-08647 Ofc Vst, New Level IV 14:53:27 CDT Tressa Danica Stephens [facility] [place] Procedures Code Procedure Name Date Entry Date Standard Description CPT-G0439 Medicare Annual Wellness Visit 17:05:42 MEDICAL SOCIAL WORKER CPT-G8446 E-Prescribing not done due to controlled substance 21:22 :47 CDT CPT-G8446 E-Prescribing not done due to controlled substance 20:42 :44 MEDICAL SOCIAL WORKER CPT-G8445 E-Prescribing Not sent due to no medication given 13:42: 40 MEDICAL SOCIAL WORKER CPT-G8445 E-Prescribing Not sent due to no medication given 12:48: 28 MEDICAL SOCIAL WORKER CPT-G8445 E-Prescribing Not sent due to no medication given 21:29: 51 MEDICAL SOCIAL WORKER CPT-G0439 Medicare Annual Wellness Visit 21:29:51 MEDICAL SOCIAL WORKER CPT-G8443 E-Prescribing Medication Sent 15:04:48 CDT CPT-G8446 E-Prescribing not done due to controlled substance 17:19 :18 CDT CPT-G8446 E-Prescribing not done due to controlled substance 09:04 :25 CDT CPT-G8445 E-Prescribing Not sent due to no medication given 16:10: 44 CDT CPT-G8445 E-Prescribing Not sent due to no medication given 20:58: 16 MEDICAL SOCIAL WORKER CPT-G8446 E-Prescribing not done due to controlled substance 10:28 :49 MEDICAL SOCIAL WORKER CPT-G8443 E-Prescribing Medication Sent 14:30:37 MEDICAL SOCIAL WORKER CPT-G8446 E-Prescribing not done due to controlled substance 15:30 :57 CDT CPT-G0438 Medicare Annual Wellness Visit Initial 15:30:57 CDT CPT-82399 Injection, Pneumovax 11:37:02 CDT CPT-8445 E-Prescribing Not sent due to no medication given 15:19: 25 CDT CPT-8445 E-Prescribing Not sent due to no medication given 11:41: 37 CDT CPT-70001 Influenza Vaccine 10:38:35 MEDICAL SOCIAL WORKER CPT-G0008 Administration Influenza Vaccine 10:38:35 MEDICAL SOCIAL WORKER CPT-80350 Influenza Vaccine 10:03:07 CDT CPT-G0008 Administration Influenza Vaccine 10:03:07 CDT
--- OUTSIDE RECORDS SUMMARY | 2018-04-13 06:54 | XMS REPORT | Clinical Summary ---
Author Author User, ALEXANDREA Organization [facility] [place] Address Unknown Phone Unavailable Allergies, Adverse Reactions, [...] Tressa Stephens Dysphagia OTHER DYSPHAGIA 787.29 Resolved rTessa Stephens Other dysphagia PNEUMONIA 486 Resolved Tressa [...] of unspecified sites CELLULITIS 682.9 Resolved Tressa Stephnes Cellulitis and abscess of unspecified sites KNEE [...] TABS 1 PO TID prn HYDROXYZINE HCL 90265321315 No Longer Active Tressa Stephens VALIUM 2 MG TAB 1-2 PO before MRI procedure DIAZEPAM 76708132306 No Longer Active Tressa Stephens OXYCONTIN 20 MG [id number] 1 PO Q 12hrs scheduled OXYCODONE HCL No Longer Active Tressa Stephens HUMALOG KWIKPEN 100 UNIT/ML SOPN 12 units before each meal INSULIN LISPRO (HUMAN) 24806358737 Active Tressa Stephens PREDNISONE 20 MG TAB 3 PO at one time daily PREDNISONE 87129381120 No Longer Active Tressa Danica Stephens ZOSTAVAX 35265 UNT/0.65ML SOLR 1 injection once to prevent Shingles ZOSTER VACCINE LIVE 72255415851 No Longer Active Tressaino Stephens VOLTAREN 1 % GEL Apply to affected area twice daily prn pain. DICLOFENAC SODIUM 28782681134 No Longer Active Tressa Danica Stephens ASTEPRO 0.15 % SOLN 1 puff each nostril TID AZELASTINE HCL 13506288691 No Longer Active Tressa Danica Stephens CELEXA 20 MG TABS 1 PO daily CITALOPRAM HYDROBROMIDE 63671215835 No Longer Active Tressa Danica Stephens KEFLEX 500 MG CAP 1 PO TID for 7 days CEPHALEXIN 54981838628 No Longer Active Carlyn Marks SYNTHROID 150 MCG TABS 1 PO Daily LEVOTHYROXINE SODIUM 51262221982 Active Carlyn Marks NEURONTIN 300 MG CAP 1-2 PO BID GABAPENTIN 47950164316 Active Tressaino ACEVEDO ODT 8 MG TBDP 1 po q 6hrs prn nausea ONDANSETRON 36835099285 No Longer Active Tressaino Stephens CARAFATE 1 GM TABS 1 PO 30 minutes before meals and at bedtime SUCRALFATE 91170172868 No Longer Active Tressa Danica Stephens SYNTHROID 150 MCG TABS 1 PO every other day alternating with 137mcg LEVOTHYROXINE SODIUM 27915249427 No Longer Active Tressaino Stephens INDOMETHACIN 50 MG CAPS 1 PO TID for 5 days INDOMETHACIN 81890526727 No Longer Active Tressaino Stephens PREDNISONE 5 MG TABS 2 Po daily for 2 weeks and then change to 1 PO daily for 2 weeks. PREDNISONE 79482677229 No Longer Active Tressa Stepehns XANAX 0.25 MG TABS 1-2 PO Q6hrs prn ALPRAZOLAM 11750345200 Active Tressaino Stephens LASIX 20 MG TAB 1 PO BID prn swelling FUROSEMIDE 61993814558 Active Tressaino Stephens K-DUR 20 MEQ TAB CR 1 PO daily POTASSIUM CHLORIDE Active Tressaino Stephens PREDNISONE 20 MG TAB 1 PO daily PREDNISONE 60376532409 No Longer Active Tressa Stephens FLUDROCORTISONE ACETATE 0.1 MG TABS 1 PO daily FLUDROCORTISONE ACETATE 76832314326 No Longer Active Tressa Stephens ACCURETIC 20-12.5 MG TABS 1 PO daily QUINAPRIL- HYDROCHLOROTHIAZIDE 20232364875 No Longer Active Tressa Stephens SYNTHROID 150 MCG TABS 1 PO alternating with 137 mcg every other day LEVOTHYROXINE SODIUM 61575619550 No Longer Active Tressa Stephens OXYCODONE HCL 10 MG TABS 2 PO Q4hrs prn OXYCODONE HCL 78549574672 Active Carlyn Marks OXYCONTIN 20 MG [id number] 1 PO Q12hrs scheduled OXYCODONE HCL 03471823241 No Longer Active Tressa Stephens COREG 12.5 MG TABS 1 PO BID for Blood pressure (on hold 04/30) CARVEDILOL 93875750077 No Longer Active Tressa Stephens DAGOBERTO 180 MG TABS 1 PO QD FEXOFENADINE HCL Active Tressaino Stephens ZOCOR 20 MG TAB 1 PO daily SIMVASTATIN 71610492163 Active Tressaino Stephens MIRALAX POWD 1 scoop in 4oz of water PO BID POLYETHYLENE GLYCOL 3350 03560669427 Active Susanna Bruno DARVOCET-N 100 100-650 MG TAB 1 PO Q6hrs prn pain PROPOXYPHENE N-APAP 55084112819 No Longer Active Rtessa Danica LAW'Wero NASAL SPRAY (DEXAMETHASONE, GENTAMICIN, SALINE) 2 puffs each nostril TID x [address] MYERS NASAL SPRAY ( DEXAMETHASONE, GENTAMICIN, SALINE) No Longer Active Tressa Danica Stephens SINEMET 25-100 MG TABS 1 po TID CARBIDOPA-LEVODOPA 41718181497 Active Tressa Danica Stephens BENADRYL 25 MG CAP 1 PO Q6hrs prn itching DIPHENHYDRAMINE HCL 50751511603 No Longer Active Tressa Danica Stephens NEXIUM 40 MG CPDR 1 PO daily ESOMEPRAZOLE MAGNESIUM 29955777329 Active Tressa Danica Stephens K-PHOS TABS 1 po BID POTASSIUM PHOSPHATE MONOBASIC TABS 56978117631 No Longer Active Tressa Danica Stephens MICARDIS 80 MG TABS 1 po daily TELMISARTAN 03550264929 Active Tressa Danica Stephens MULTIVITAMINS TABS 1 PO QD MULTIPLE VITAMIN 08929992214 No Longer Active Tressaino Stephens LANTUS SOLOSTAR 100 UNIT/ML SOLN 40 units SQ QHS INSULIN GLARGINE 12890467252 Active Tressa Danica Stephens PATANOL 0.1 % SOLN 2 drops in each eye BID prn OLOPATADINE HCL 03999260537 No Longer Active Tressa Danica Stephens FISH OIL 1000 MG CAPS 2 tabs po TID OMEGA-3 FATTY ACIDS 66022432138 No Longer Active Tressa Danica Stephens PREMARIN 1.25 MG TAB 1 PO daily ESTROGENS CONJUGATED 12873144796 Active Tressa Danica Stephens PEN NEEDLES 1/2" 29G X 12MM MISC as directed on the Lantus Pen INSULIN PEN NEEDLE 14216115037 No Longer Active Tressa Danica Stephens BD INSULIN SYRINGE ULTRAFINE 29G X 1/2" 1 ML MISC as directed DX: Diabetes INSULIN SYRINGE-NEEDLE U-100 13669466534 No Longer Active Tressa Danica Stephens LOVAZA 1 GM CAPS 2 po BID [id number] ETHYL ESTERS 05839669220 Active Tressa Danica Stephens PREDNISONE 10 MG TAB 1 PO daily PREDNISONE 38221036395 No Longer Active Tressa Danica Stephens ALPRAZOLAM 0.25 MG TABS 1/2 to 1 tab po q 8 hrs prn anxiety 07/24 ALPRAZOLAM 22974893909 No Longer Active Tressa Danica Stephens TRANXENE-T 7.5 MG TABS 1 po BID prn CLORAZEPATE DIPOTASSIUM 43935651834 Active Tressa Danica Stephens ZESTRIL 20 MG TABS 1 po daily LISINOPRIL 93337600925 No Longer Active Tressa Danica Stephens MUCINEX 600 MG [id number] 1 po TID GUAIFENESIN 10736884586 Active Tressa Danica Stephens DARVOCET-N 100 100-650 MG TAB 1 PO Q6hrs prn pain PROPOXYPHENE N-APAP 95494528284 No Longer Active Tressa Danica Stephens METANX 2.8-25-2 MG TABS 1 PO daily [id number] 56047179009 No Longer Active Tressa Danica Stephens SINEMET 25-100 MG TABS 2 PO BID prn CARBIDOPA-LEVODOPA 45303253112 No Longer Active Tressa Danica Stephens LOVAZA 1 GM CAPS 2 po BID KIUMH-3-VELE ETHYL ESTERS 05486543459 No Longer Active Tressa Danica Stephens LORTAB 10 TABS 1 po q 4 hrs prn pain HYDROCODONE- ACETAMINOPHEN TABS 17218379698 No Longer Active Tressa Danica Stephens CALCIUM 600 + D 600-200 MG-UNIT TABS 1 po daily CALCIUM CARBONATE-VITAMIN D 64706901075 Active Tressa Danica Stephens VITAMIN C 500 MG TABS 1 po BID ASCORBIC ACID 67691684841 Active Tressa Daniac Stephens CLORAZEPATE DIPOTASSIUM 3.75 MG TABS 1 tab 2 times daily prn CLORAZEPATE DIPOTASSIUM 24545131336 No Longer Active Tressa Danica Stephens PRILOSEC 20 MG CAP CR 1 PO QD OMEPRAZOLE 04820049926 No Longer Active Tressa Danica Stephens PREMARIN 1.25 MG TABS 1 po daily ESTROGENS CONJUGATED 79212696778 No Longer Active Tressa Danica Stephens LIPITOR 20 MG TABS 1 po daily ATORVASTATIN CALCIUM 29995334674 No Longer Active Tressa Danica Stephens CLONIDINE HCL 0.1 MG TAB 1 po BID CLONIDINE HCL 04256790960 No Longer Active Tressa Danica Stephens ACCURETIC 20-12.5 MG TABS 2 PO QAM QUINAPRIL- HYDROCHLOROTHIAZIDE 83971577193 No Longer Active Tressa Danica Stephens MICARDIS 80 MG TABS 1 PO QPM TELMISARTAN 81416721287 No Longer Active Tressa Danica Stephens GLUCOVANCE 5-500 MG TABS 1 tab po BID GLYBURIDE-METFORMIN 88927506670 No Longer Active Tressa Danica Stephens LEVEMIR 100 UNIT/ML SOLN 40 units at HS INSULIN DETEMIR 57078909064 No Longer Active Tressa Danica Stephens TAMIFLU 75 MG CAPS 1 PO daily for 10 days OSELTAMIVIR PHOSPHATE 25615918267 No Longer Active Matthieu Sonya PREDNISONE 10 MG TABS 1 PO Daily PREDNISONE 57566895565 No Longer Active Tressa Danica Stephens LANTUS 100 UNIT/ML SOLN (INSULIN GLARGINE) PEN Take 32 units SQ QHS LANTUS 100 UNIT/ML SOLN (INSULIN GLARGINE) PEN No Longer Active Tressa Stephens CEFTIN 250 MG TABS 1 PO BID CEFUROXIME AXETIL 84172543335 No Longer Active Tressa Danica LAW'S NASAL SPRAY (DEXAMETHASONE, GENTAMICIN, SALINE) 2 puffs each nostril TID for [address] MYERS NASAL SPRAY ( DEXAMETHASONE, GENTAMICIN, SALINE) No Longer Active Tressa Danica Stephens ATROVENT 0.06 % SOLN 2 puffs each nostril TID prn runny nose and sinus drainage IPRATROPIUM BROMIDE 21941327882 No Longer Active Tressa Danica Stephens MUCINEX DM 30-600 MG TB12 1 PO Q12hrs DEXTROMETHORPHAN- GUAIFENESIN 06216468733 No Longer Active Tressaino Stephens ADVAIR DISKUS 100-50 MCG/DOSE MISC 1 puff BID FLUTICASONE-SALMETEROL 54836664766 No Longer Active Tressaino Stephens ROBITUSSIN A-C 10-100 MG/5ML SYRUP 1 teaspoon PO Q 4-6 hr prn ROBITUSSIN A-C 10-100 MG/5ML SYRUP 77402034988 No Longer Active Tressa Danica Stephens TESSALON 200 MG CAPS 1 PO TID prn cough BENZONATATE 46397879117 No Longer Active Bhumi Merando ROBITUSSIN A-C 10-100 MG/5ML SYRUP 1 teaspoon PO Q 4-6 hr prn ROBITUSSIN A-C 10-100 MG/5ML SYRUP 69460207217 No Longer Active Bhumi Merando DARVOCET-N 100 100-650 MG TABS 1 po q 4 hrs. prn PROPOXYPHENE N-APAP 81862750201 No Longer Active Tressa Danica Stephens SALSALATE 750 MG TABS 1 po QID prn SALSALATE 91060688784 No Longer Active Tressa Danica Stephens DAGOBERTO 180 MG TABS 1 PO QD FEXOFENADINE HCL 72750472075 No Longer Active Tressa Danica LAW'Wero NASAL SPRAY (DEXAMETHASONE, GENTAMICIN, SALINE) 2 puffs each nostril TID DR. MYERS NASAL SPRAY (DEXAMETHASONE, GENTAMICIN, SALINE) No Longer Active Tressaino Stephens AMOXICILLIN 500 MG CAP 1 PO TID AMOXICILLIN 57848434471 No Longer Active Tressa Danica Stephens AVANDIA 8 MG TABS 1 po daily ROSIGLITAZONE MALEATE 68621194750 No Longer Active Tressa Danica Stephens DICLOFENAC POTASSIUM 50 MG TABS 1 po TID DICLOFENAC POTASSIUM 14150172296 No Longer Active Tressa Danica Stephens DAGOBERTO 180 MG TABS 1 PO QD FEXOFENADINE HCL 07535255437 No Longer Active Tressa Danica Stephens DRIXORAL 6-120 MG TB12 1 sparingly DEXBROMPHENIRAMINE -PSEUDOEPH 03840039538 No Longer Active Tressa Danica Stephens TOY PLUS EXTRA STRENGTH 500 MG TABS 1 PO daily ASPIRIN BUFFERED 09221259406 No Longer Active Tressa Danica Stephens DETROL LA 4 MG CP24 1 PO daily TOLTERODINE TARTRATE 85107140557 Active Tressa Danica Stephnes B-D U/F PEN NEEDLE 31G X 8 MM MISC 1 PO daily Dx: DM Type II INSULIN PEN NEEDLE 49517749440 Active Tressa Danica Stephens OMACOR 1 PO daily OMACOR No Longer Active Tressa Danica Stephens [employer] AUTOD[employer] STRIPS STRP as directed TID Dx: DM Type II GLUCOSE BLOOD 59500734449 Active Narayan Fortune LOVENOX 40 MG/0.4ML SOLN 1 injection daily. Begin Friday05/03/05. ENOXAPARIN SODIUM 35720587419 No Longer Active Tressa Stephens FLUVIRIN INJ done at health dept INFLUENZA VAC TYP A& B SURF ANT 80009855143 No Longer Active Tressa Stephens PNEUMOVAX 23 25 MCG/0.5ML INJ done from health dept PNEUMOCOCCAL VAC POLYVALENT 03753789947 No Longer Active Tressa Stephens MUCINEX 600 MG TB12 1 PO Q12hrs GUAIFENESIN 64667424468 No Longer Active Tressa Stephens HUMALOG MIX 75/25 75-25 % SUSP 26 units in am, 19 units in pm INSULIN LISP & LISP PROT (HUM) 43071689876 No Longer Active Tressa Stephens MULTIVITAMINS TABS 1 po daily MULTIPLE VITAMIN 26011240790 Active Tressa Stephens NEXIUM 40 MG CPDR 1 po daily ESOMEPRAZOLE MAGNESIUM 73046084306 No Longer Active Tressa Stephens NORVASC 10 MG TABS 1 po daily AMLODIPINE BESYLATE 03192129887 Active Tressa Stephens Immunizations Vaccine Administration Date [...] % Encounters Code Encounter Date Provider Facility CPT-20564 Ofc Vst, Est Level IV 17:19:02 MACHINE PRESSER Tressa Stephens DO, FACP CPT-06929 Ofc Vst, Est Level IV 16:15:30 MACHINE PRESSER Tressa Stephens DO, FACP CPT-10872 Ofc Vst, Est Level IV 17:12:11 MACHINE PRESSER Tressa Stephens DO, FACP CPT-00050 Ofc Vst, Est Level IV 16:52:17 MACHINE PRESSER Tressa Danica Stephens Tressa S Stephens, DO, FACP CPT-26764 Ofc Vst, Est Level III 16:30:23 CDT Tressa Danica Conteh Stephens, DO, FACP CPT-24669 Ofc Vst, Est Level III 17:01:51 CDT Tressa Danica Conteh Stephens, DO, FACP CPT-71999 Ofc Vst, Est Level IV 17:35:57 CDT Tressa Danica Conteh Stephens, DO, FACP CPT-84661 Ofc Vst, Est Level III 12:47:22 CDT Tressa Danica Conteh Stephens, DO, FACP CPT-85187 Ofc Vst, Est Level IV 13:16:37 CDT Tressa Danica Conteh Stephens, DO, FACP CPT-25848 Ofc Vst, Est Level III 21:22:47 CDT Tressa Danica Conteh Stephens, DO, FACP CPT-68646 Ofc Vst, Est Level III 20:42:44 MACHINE PRESSER Tressa Danica Conteh Stephens, DO, FACP CPT-44618 Ofc Vst, Est Level III 13:42:40 MACHINE PRESSER Tressa Danica Conteh Stephens, DO, FACP CPT-66917 Ofc Vst, Est Level IV 12:48:28 MACHINE PRESSER Tressa Danica Conteh Stephens, DO, FACP CPT-83061 Ofc Vst, Est Level III 15:04:48 CDT Tressa Danica Conteh Stephens, DO, FACP CPT-31006 Ofc Vst, Est Level IV 17:19:18 CDT Tressa Danica Bustillos S Stephens, DO, FACP CPT-69941 Ofc Vst, Est Level III 09:04:25 CDT Tressa Danica Conteh Kat, DO, FACP CPT-63773 Ofc Vst, Est Level III 16:10:44 CDT Tressa Danica Conteh Stephens, DO, FACP CPT-16628 Ofc Vst, Est Level IV 20:58:16 MACHINE PRESSER Tressa Danica Conteh Stephens, DO, FACP CPT-62816 Ofc Vst, Est Level IV 10:28:49 MACHINE PRESSER Tressa Danica Conteh Stephens, DO, FACP CPT-09237 Ofc Vst, Est Level III 14:30:37 MACHINE PRESSER Tressa Danica Conteh Stephens, DO, FACP CPT-07724 Ofc Vst, Est Level IV 11:15:48 CDT Tressa Danica Conteh Kat, DO, FACP CPT-71967 Ofc Vst, Est Level IV 11:15:33 CDT Tressa Danica Conteh Kat, DO, FACP CPT-02630 Ofc Vst, Est Level IV 11:30:32 CDT Tressa Danica Conteh Stephens, DO, FACP CPT-28748 Ofc Vst, Est Level IV 11:44:55 CDT Tressa Danica Conteh Kat, DO, FACP CPT-38969 Ofc Vst, Est Level IV 14:27:05 CDT Tressaino Conteh Kat, DO, FACP CPT-65304 Ofc Vst, Est Level V 14:28:06 MACHINE PRESSER Tressa Danica Conteh Stephens, DO, FACP CPT-32220 Ofc Vst, Est Level IV 12:03:43 MACHINE PRESSER Tressa Bustillos S Kat, DO, FACP CPT-70804 Ofc Vst, Est Level V 15:06:48 MACHINE PRESSER Tressa Conteh Kat, DO, FACP CPT-13790 Ofc Vst, Est Level III 15:36:23 MACHINE PRESSER Tressa Conteh Stephens, DO, FACP CPT-73700 Ofc Vst, Est Level V 15:39:00 CDT Tressa Danica Conteh Stephens, DO, FACP CPT-26552 Ofc Vst, Est Level V 14:02:35 CDT Tressaino Conteh Stephens, DO, FACP CPT-58216 Ofc Vst, Est Level III 15:00:21 CDT Tressaino Conteh Stephens, DO, FACP CPT-03590 Ofc Vst, Est Level IV 13:45:16 CDT Tressa Danica Conteh Stephens, DO, FACP CPT-02933 Ofc Vst, Est Level IV 14:31:48 CDT Tressaino Conteh Kat, DO, FACP CPT-09357 Ofc Vst, Est Level IV 11:14:51 CDT Tressaino Conteh Kat, DO, FACP CPT-49967 Ofc Vst, Est Level IV 14:36:19 CDT Tressaino Conteh Stephens, DO, FACP CPT-98348 Ofc Vst, Est Level IV 15:56:12 MACHINE PRESSER Tressa Conteh Kat, DO, FACP CPT-98565 Ofc Vst, Est Level IV 11:37:02 CDT Tressaino Conteh Stephens, DO, FACP CPT-42555 Ofc Vst, Est Level III 11:05:27 CDT Tressa Danica Conteh Stephens, DO, FACP CPT-95400 Ofc Vst, Est Level IV 12:12:37 CDT Tressaino Conteh Stephens, DO, FACP CPT-92070 Ofc Vst, Est Level IV 11:55:51 CDT Tressaino Conteh Stephens, DO, FACP CPT-63106 Ofc Vst, Est Level V 13:46:43 CDT Tressa Danica Conteh Stephens, DO, FACP CPT-47868 Ofc Vst, Est Level IV 14:23:36 CDT Tressa Danica Conteh Stephens, DO, FACP CPT-78453 Ofc Vst, Est Level III 14:59:12 CDT Tressa Danica Conteh Stephens, DO, FACP CPT-25689 Ofc Vst, Est Level IV 16:01:19 CDT Tressa Danica Conteh Kat, DO, FACP CPT-24829 Ofc Vst, Est Level IV 15:21:33 MACHINE PRESSER Tressa Conteh Kat, DO, FACP CPT-42932 Ofc Vst, Est Level IV 10:21:01 MACHINE PRESSER Tressa Conteh Kat, DO, FACP CPT-47961 Ofc Vst, Est Level V 12:53:03 MACHINE PRESSER Tressa Conteh Kat, DO, FACP CPT-04470 Ofc Vst, Est Level IV 10:54:43 CDT Tressa Conteh Kat, DO, FACP CPT-83742 Ofc Vst, Est Level V 10:18:33 CDT Tressaino Conteh Kat, DO, FACP CPT-67437 Ofc Vst, Est Level V 14:14:31 CDT Tressa Danica Conteh Kat, DO, FACP CPT-41004 Ofc Vst, Est Level IV 12:25:33 CDT Tressa Conteh Kat, DO, FACP CPT-14201 Ofc Vst, Est Level IV 15:27:17 CDT Tressa Danica Conteh Kat, DO, FACP CPT-87756 Ofc Vst, Est Level IV 14:47:24 CDT Tressa Danica Conteh Kat, DO, FACP CPT-23436 Ofc Vst, Est Level V 15:19:25 CDT Tressa Danica [facility] CPT-63247 Ofc Vst, Est Level V 11:41:37 CDT Tressa Danica Conteh Stephens, DO, FACP CPT-02508 Ofc Vst, Est Level V 11:12:22 CDT Tressa Danica Conteh Kat, DO, FACP CPT-01916 Ofc Vst, Est Level IV 14:51:16 MACHINE PRESSER Tressa Conteh Kat, DO, FACP CPT-67447 Ofc Vst, Est Level IV 11:31:20 MACHINE PRESSER Tressa Danica Conteh Kat, DO, FACP CPT-20562 Ofc Vst, Est Level IV 10:35:51 MACHINE PRESSER Tressa Conteh Kat, DO, FACP CPT-57745 Ofc Vst, Est Level IV 11:46:27 MACHINE PRESSER Tressa Conteh Kat, DO, FACP CPT-00893 Ofc Vst, Est Level IV 09:34:16 MACHINE PRESSER Tressa Conteh Kat, DO, FACP CPT-97999 Ofc Vst, Est Level V 11:34:06 MACHINE PRESSER Tressa Conteh Kat, DO, FACP CPT-78305 Ofc Vst, Est Level IV 13:57:23 CDT Tressa Danica Bustillos S Kat, DO, FACP CPT-36972 Ofc Vst, Est Level IV 12:34:42 CDT Tressa Danica Conteh Kat, DO, FACP CPT-88767 Ofc Vst, Est Level IV 10:18:20 CDT Tressa Stephens, DO, FACP CPT-08060 Ofc Vst, Est Level IV 10:10:02 MACHINE PRESSER Tressa Davisanne Kat Stephens, DO, FACP CPT-95593 Ofc Vst, Est Level IV 15:36:41 MACHINE PRESSER Tressa Stephens, DO, FACP CPT-84091 Ofc Vst, Est Level III 10:41:26 MACHINE PRESSER Tressa Danica Kat Stephnes, DO, FACP CPT-54228 Ofc Vst, Est Level IV 13:29:32 CDT Tressa Stephens, DO, FACP CPT-73034 Ofc Vst, Est Level IV 10:30:12 CDT Tressa Stephens [facility] CPT-85565 Ofc Vst, Est Level IV 11:11:37 MACHINE PRESSER Tressa Stephens [facility] [place] CPT-90139 Ofc Vst, Est Level IV 11:06:40 MACHINE PRESSER Tressa [facility] [place] CPT-79858 Ofc Vst, Est Level IV 12:01:24 CDT Tressa Stephens [facility] [place] CPT-93813 Ofc Vst, Est Level IV 11:43:30 CDT Tressa Stephens [facility] [place] CPT-63840 Ofc Vst, Est Level IV 14:22:04 CDT Tressa Stephens [facility] [place] CPT-91743 Ofc Vst, Est Level IV 13:59:46 CDT Tressa Stephens [facility] [place] CPT-66974 Ofc Vst, Est Level IV 14:02:19 MACHINE PRESSER Tressa Stephens [facility] CPT-07529 Ofc Vst, Est Level IV 15:07:12 MACHINE PRESSER Tressa Stephens [facility] CPT-90106 Ofc Vst, Est Level IV 15:11:06 MACHINE PRESSER Tressa Davisanndre JorgensenStephens [facility] [place] CPT-72599 Ofc Vst, Est Level IV 15:30:27 MACHINE PRESSER Tressa Jorgensenner [facility] CPT-59397 Ofc Vst, Est Level IV 11:04:18 MACHINE PRESSER Tressa [facility]anndre [facility] [place] CPT-80984 Ofc Vst, Est Level IV 13:50:55 MACHINE PRESSER Tressa Davisanndre JorgensenStephens [facility] [place] CPT-84854 Ofc Vst, Est Level IV 16:27:37 CDT Tressa Danica [facility] [place] CPT-83294 Ofc Vst, Est Level IV 14:19:58 CDT [facility] [place] CPT-15404 Ofc Vst, New Level IV 14:53:27 CDT Tressa Davisanndre [facility] [place] Procedures Code Procedure Name Date Entry Date Standard Description CPT-G0439 Medicare Annual Wellness Visit 17:05:42 MACHINE PRESSER CPT-G8446 E-Prescribing not done due to controlled substance 21:22 :47 CDT CPT-G8446 E-Prescribing not done due to controlled substance 20:42 :44 MACHINE PRESSER CPT-G8445 E-Prescribing Not sent due to no medication given 13:42: 40 MACHINE PRESSER CPT-G8445 E-Prescribing Not sent due to no medication given 12:48: 28 MACHINE PRESSER CPT-G8445 E-Prescribing Not sent due to no medication given 21:29: 51 MACHINE PRESSER CPT-G0439 Medicare Annual Wellness Visit 21:29:51 MACHINE PRESSER CPT-G8443 E-Prescribing Medication Sent 15:04:48 CDT CPT-G8446 E-Prescribing not done due to controlled substance 17:19 :18 CDT CPT-G8446 E-Prescribing not done due to controlled substance 09:04 :25 CDT CPT-G8445 E-Prescribing Not sent due to no medication given 16:10: 44 CDT CPT-G8445 E-Prescribing Not sent due to no medication given 20:58: 16 MACHINE PRESSER CPT-G8446 E-Prescribing not done due to controlled substance 10:28 :49 MACHINE PRESSER CPT-G8443 E-Prescribing Medication Sent 14:30:37 MACHINE PRESSER CPT-G8446 E-Prescribing not done due to controlled substance 15:30 :57 CDT CPT-G0438 Medicare Annual Wellness Visit Initial 15:30:57 CDT CPT-88673 Injection, Pneumovax 11:37:02 CDT CPT-8445 E-Prescribing Not sent due to no medication given 15:19: 25 CDT CPT-8445 E-Prescribing Not sent due to no medication given 11:41: 37 CDT CPT-07469 Influenza Vaccine 10:38:35 MACHINE PRESSER CPT-G0008 Administration Influenza Vaccine 10:38:35 MACHINE PRESSER CPT-94599 Influenza Vaccine 10:03:07 CDT CPT-G0008 Administration Influenza Vaccine 10:03:07 CDT
--- OUTSIDE RECORDS SUMMARY | 2018-04-13 06:58 | XMS REPORT | Clinical Summary ---
Author Author User, [facility] Organization [facility] Address Unknown Phone Unavailable Allergies, Adverse Reactions, [...] MEQ CR-TABS 1 PO DAILY POTASSIUM CHLORIDE [id number] Active Carlyn Marks HYDROXYZINE HCL 25 MG TABS 1 PO TID prn HYDROXYZINE HCL 75910238946 No Longer Active Tressa Stephens VALIUM 2 MG TAB 1-2 PO before MRI procedure DIAZEPAM 84006650983 No Longer Active Tressa Stephens OXYCONTIN 20 MG [id number] 1 PO Q 12hrs scheduled OXYCODONE HCL No Longer Active Tressa Stephens HUMALOG KWIKPEN 100 UNIT/ML SOPN 12 units before each meal INSULIN LISPRO (HUMAN) 50327128952 Active Tressa Danica Stephens PREDNISONE 20 MG TAB 3 PO at one time daily PREDNISONE 81187858295 No Longer Active Tressa Danica Stephens ZOSTAVAX 08394 UNT/0.65ML SOLR 1 injection once to prevent Shingles ZOSTER VACCINE LIVE 97287396836 No Longer Active Tressa Danica Stephens VOLTAREN 1 % GEL Apply to affected area twice daily prn pain. DICLOFENAC SODIUM 37130076865 No Longer Active Tressaino Stephens ASTEPRO 0.15 % SOLN 1 puff each nostril TID AZELASTINE HCL 91211086647 No Longer Active Tressa Danica Stephens CELEXA 20 MG TABS 1 PO daily CITALOPRAM HYDROBROMIDE 39286206728 No Longer Active Tressa Danica Stephens KEFLEX 500 MG CAP 1 PO TID for 7 days CEPHALEXIN 16334577279 No Longer Active Carlyn Marks SYNTHROID 150 MCG TABS 1 PO Daily LEVOTHYROXINE SODIUM 44133655446 Active Carlyn Marks NEURONTIN 300 MG CAP 1-2 PO BID GABAPENTIN 21811330705 Active Tressa aDnica ACEVEDO ODT 8 MG TBDP 1 po q 6hrs prn nausea ONDANSETRON 54083519060 No Longer Active Tressa Danica Stephens CARAFATE 1 GM TABS 1 PO 30 minutes before meals and at bedtime SUCRALFATE 02926215052 No Longer Active Tressa Danica Stephens SYNTHROID 150 MCG TABS 1 PO every other day alternating with 137mcg LEVOTHYROXINE SODIUM 15468909874 No Longer Active Tressa Danica Stephens INDOMETHACIN 50 MG CAPS 1 PO TID for 5 days INDOMETHACIN 43682256102 No Longer Active Tressaino Stephens PREDNISONE 5 MG TABS 2 Po daily for 2 weeks and then change to 1 PO daily for 2 weeks. PREDNISONE 85314256087 No Longer Active Tressa Danica Stephens XANAX 0.25 MG TABS 1-2 PO Q6hrs prn ALPRAZOLAM 15500941143 Active Tressa Danica Stephens LASIX 20 MG TAB 1 PO BID prn swelling FUROSEMIDE 41778505912 Active Tressa Danica Stephens PREDNISONE 20 MG TAB 1 PO daily PREDNISONE 73423645512 No Longer Active Tressaino Stephens FLUDROCORTISONE ACETATE 0.1 MG TABS 1 PO daily FLUDROCORTISONE ACETATE 08068696692 No Longer Active Tressaino Stephens ACCURETIC 20-12.5 MG TABS 1 PO daily QUINAPRIL- HYDROCHLOROTHIAZIDE 58042470879 No Longer Active Tressaino Stephens SYNTHROID 150 MCG TABS 1 PO alternating with 137 mcg every other day LEVOTHYROXINE SODIUM 03851954916 No Longer Active Tressaino Stephens OXYCODONE HCL 10 MG TABS 2 PO Q4hrs prn OXYCODONE HCL 70694178696 Active Tressaino Stephens OXYCONTIN 20 MG [id number] 1 PO Q12hrs scheduled OXYCODONE HCL 37607056357 No Longer Active Tressa Danica Stephens COREG 12.5 MG TABS 1 PO BID for Blood pressure (on hold 04/30) CARVEDILOL 55910228867 No Longer Active Tressa Danica Stephens DAGOBERTO 180 MG TABS 1 PO QD FEXOFENADINE HCL Active Tressaino Stephens ZOCOR 20 MG TAB 1 PO daily SIMVASTATIN 26773118770 Active Tressa Danica Stephens MIRALAX POWD 1 scoop in 4oz of water PO BID POLYETHYLENE GLYCOL 3350 77544077208 Active Susanna Bruno DARVOCET-N 100 100-650 MG TAB 1 PO Q6hrs prn pain PROPOXYPHENE N-APAP 53906099036 No Longer Active Tressa Danica LAW'Wero NASAL SPRAY (DEXAMETHASONE, GENTAMICIN, SALINE) 2 puffs each nostril TID x [address] MYERS NASAL SPRAY ( DEXAMETHASONE, GENTAMICIN, SALINE) No Longer Active Tressa Danica Stephens SINEMET 25-100 MG TABS 1 po TID CARBIDOPA-LEVODOPA 15620537480 Active Tressa Danica Stephens BENADRYL 25 MG CAP 1 PO Q6hrs prn itching DIPHENHYDRAMINE HCL 37765454091 No Longer Active Tressa Danica Stephens NEXIUM 40 MG CPDR 1 PO daily ESOMEPRAZOLE MAGNESIUM 16752344540 Active Tressa Danica Stephens K-PHOS TABS 1 po BID POTASSIUM PHOSPHATE MONOBASIC TABS 84367037128 No Longer Active Tressa Danica Stephens MICARDIS 80 MG TABS 1 po daily TELMISARTAN 65922570724 Active Tressa Danica Stephens MULTIVITAMINS TABS 1 PO QD MULTIPLE VITAMIN 07508639776 No Longer Active Tressaino Stephens LANTUS SOLOSTAR 100 UNIT/ML SOLN 40 units SQ QHS INSULIN GLARGINE 83667742318 Active Tressa Danica Stephens PATANOL 0.1 % SOLN 2 drops in each eye BID prn OLOPATADINE HCL 31791109874 No Longer Active Tressa Danica Stephens FISH OIL 1000 MG CAPS 2 tabs po TID OMEGA-3 FATTY ACIDS 88015352487 No Longer Active Tressa Danica Stephens PREMARIN 1.25 MG TAB 1 PO daily ESTROGENS CONJUGATED 64229934937 Active Tressa Danica Stephens PEN NEEDLES 1/2" 29G X 12MM MISC as directed on the Lantus Pen INSULIN PEN NEEDLE 87009682470 No Longer Active Tressa Danica Stephens BD INSULIN SYRINGE ULTRAFINE 29G X 1/2" 1 ML MISC as directed DX: Diabetes INSULIN SYRINGE-NEEDLE U-100 66542651928 No Longer Active Tressa Danica Stephens LOVAZA 1 GM CAPS 2 po BID LOTAA-4-LPMT ETHYL ESTERS 51337003804 Active Tressa Danica Stephens PREDNISONE 10 MG TAB 1 PO daily PREDNISONE 92515507062 No Longer Active Tressa Danica Stephens ALPRAZOLAM 0.25 MG TABS 1/2 to 1 tab po q 8 hrs prn anxiety 07/24 ALPRAZOLAM 00300317769 No Longer Active Tressa Danica Stephens TRANXENE-T 7.5 MG TABS 1 po BID prn CLORAZEPATE DIPOTASSIUM 23418684284 Active Tressa Danica Stephens ZESTRIL 20 MG TABS 1 po daily LISINOPRIL 98109405899 No Longer Active Tressa Danica Stephens MUCINEX 600 MG [id number] 1 po TID GUAIFENESIN 52391699357 Active Tressa Danica Stephens DARVOCET-N 100 100-650 MG TAB 1 PO Q6hrs prn pain PROPOXYPHENE N-APAP 46776902970 No Longer Active Tressa Danica Stephens METANX 2.8-25-2 MG TABS 1 PO daily [id number] 48304835399 No Longer Active Tressa Danica Stephens SINEMET 25-100 MG TABS 2 PO BID prn CARBIDOPA-LEVODOPA 11149950467 No Longer Active Tressa Danica Stephens LOVAZA 1 GM CAPS 2 po BID UQREH-[id number] ETHYL ESTERS 08873443266 No Longer Active Tressa Danica Stephens LORTAB 10 TABS 1 po q 4 hrs prn pain HYDROCODONE- ACETAMINOPHEN TABS 84442304488 No Longer Active Tressa Danica Stephens CALCIUM 600 + D 600-200 MG-UNIT TABS 1 po daily CALCIUM CARBONATE-VITAMIN D 74556400291 Active Tressa Danica Stephens VITAMIN C 500 MG TABS 1 po BID ASCORBIC ACID 00705468186 Active Tressa Danica Stephens CLORAZEPATE DIPOTASSIUM 3.75 MG TABS 1 tab 2 times daily prn CLORAZEPATE DIPOTASSIUM 88366270222 No Longer Active Tressa Danica Stephens PRILOSEC 20 MG CAP CR 1 PO QD OMEPRAZOLE 88415108275 No Longer Active Tressa Danica Stephens PREMARIN 1.25 MG TABS 1 po daily ESTROGENS CONJUGATED 49679077079 No Longer Active Tressa Danica Stephens LIPITOR 20 MG TABS 1 po daily ATORVASTATIN CALCIUM 87214201127 No Longer Active Tressa Danica Stephens CLONIDINE HCL 0.1 MG TAB 1 po BID CLONIDINE HCL 45448310717 No Longer Active Tressa Danica Stephens ACCURETIC 20-12.5 MG TABS 2 PO QAM QUINAPRIL- HYDROCHLOROTHIAZIDE 34726992730 No Longer Active Tressa Danica Stephens MICARDIS 80 MG TABS 1 PO QPM TELMISARTAN 91159577831 No Longer Active Tressa Danica Stephens GLUCOVANCE 5-500 MG TABS 1 tab po BID GLYBURIDE-METFORMIN 29607316836 No Longer Active Tressa Danica Stephens LEVEMIR 100 UNIT/ML SOLN 40 units at HS INSULIN DETEMIR 02063864687 No Longer Active Tressa Danica Stephens TAMIFLU 75 MG CAPS 1 PO daily for 10 days OSELTAMIVIR PHOSPHATE 85761676992 No Longer Active Matthieu Brandon PREDNISONE 10 MG TABS 1 PO Daily PREDNISONE 84591016914 No Longer Active Tressa Danica Stephens LANTUS 100 UNIT/ML SOLN (INSULIN GLARGINE) PEN Take 32 units SQ QHS LANTUS 100 UNIT/ML SOLN (INSULIN GLARGINE) PEN No Longer Active Tressa Stephens CEFTIN 250 MG TABS 1 PO BID CEFUROXIME AXETIL 46685268162 No Longer Active Tressa Danica LAW'Wero NASAL SPRAY (DEXAMETHASONE, GENTAMICIN, SALINE) 2 puffs each nostril TID for [address] MYERS NASAL SPRAY ( DEXAMETHASONE, GENTAMICIN, SALINE) No Longer Active Tressaino Stephens ATROVENT 0.06 % SOLN 2 puffs each nostril TID prn runny nose and sinus drainage IPRATROPIUM BROMIDE 59666784951 No Longer Active Tressaino Stephens MUCINEX DM 30-600 MG TB12 1 PO Q12hrs DEXTROMETHORPHAN- GUAIFENESIN 65107581997 No Longer Active Tressa Stephens ADVAIR DISKUS 100-50 MCG/DOSE MISC 1 puff BID FLUTICASONE-SALMETEROL 69145163084 No Longer Active Tressaino Stephens ROBITUSSIN A-C 10-100 MG/5ML SYRUP 1 teaspoon PO Q 4-6 hr prn ROBITUSSIN A-C 10-100 MG/5ML SYRUP 75711499388 No Longer Active Tressaino Stephens TESSALON 200 MG CAPS 1 PO TID prn cough BENZONATATE 62040757681 No Longer Active Bhumi Merando ROBITUSSIN A-C 10-100 MG/5ML SYRUP 1 teaspoon PO Q 4-6 hr prn ROBITUSSIN A-C 10-100 MG/5ML SYRUP 09456099807 No Longer Active Bhumi Mermayao DARVOCET-N 100 100-650 MG TABS 1 po q 4 hrs. prn PROPOXYPHENE N-APAP 51803706135 No Longer Active Tressa Danica Stephens SALSALATE 750 MG TABS 1 po QID prn SALSALATE 18247141987 No Longer Active Tressa Danica Stephens DAGOBERTO 180 MG TABS 1 PO QD FEXOFENADINE HCL 50774236431 No Longer Active Tressa Danica LAW'Wero NASAL SPRAY (DEXAMETHASONE, GENTAMICIN, SALINE) 2 puffs each nostril TID DR. MYERS NASAL SPRAY (DEXAMETHASONE, GENTAMICIN, SALINE) No Longer Active Tressa Danica Stephens AMOXICILLIN 500 MG CAP 1 PO TID AMOXICILLIN 10992492786 No Longer Active Tressa Danica Stephens AVANDIA 8 MG TABS 1 po daily ROSIGLITAZONE MALEATE 91947424883 No Longer Active Tressa Danica Stephens DICLOFENAC POTASSIUM 50 MG TABS 1 po TID DICLOFENAC POTASSIUM 80182725365 No Longer Active Tressa Danica Stephens DAGOBERTO 180 MG TABS 1 PO QD FEXOFENADINE HCL 20441948365 No Longer Active Tressa Danica Stephens DRIXORAL 6-120 MG TB12 1 sparingly DEXBROMPHENIRAMINE -PSEUDOEPH 19929514202 No Longer Active Tressa Danica Stephens TOY PLUS EXTRA STRENGTH 500 MG TABS 1 PO daily ASPIRIN BUFFERED 33620126113 No Longer Active Tressa Danica Stephens DETROL LA 4 MG CP24 1 PO daily TOLTERODINE TARTRATE 94840838886 Active Tressa Danica Stephens B-D U/F PEN NEEDLE 31G X 8 MM MISC 1 PO daily Dx: DM Type II INSULIN PEN NEEDLE 92187340347 Active Tressa Danica Stephens OMACOR 1 PO daily OMACOR No Longer Active Tressa Danica Stephens [employer] STRIPS STRP as directed TID Dx: DM Type II GLUCOSE BLOOD 72798131852 Active Narayan Fortune LOVENOX 40 MG/0.4ML SOLN 1 injection daily. Begin Friday05/03/05. ENOXAPARIN SODIUM 89580711603 No Longer Active Tressa Stephens FLUVIRIN INJ done at health dept INFLUENZA VAC TYP A& B SURF ANT 62847592977 No Longer Active Tressa Stephens PNEUMOVAX 23 25 MCG/0.5ML INJ done from health dept PNEUMOCOCCAL VAC POLYVALENT 84354698000 No Longer Active Tressa Stephens MUCINEX 600 MG TB12 1 PO Q12hrs GUAIFENESIN 19628927309 No Longer Active Tressa Stephens HUMALOG MIX 75/25 75-25 % SUSP 26 units in am, 19 units in pm INSULIN LISP & LISP PROT (HUM) 69186162658 No Longer Active Tressa Stephens MULTIVITAMINS TABS 1 po daily MULTIPLE VITAMIN 72723670185 Active Tressa Stephens NEXIUM 40 MG CPDR 1 po daily ESOMEPRAZOLE MAGNESIUM 33676837425 No Longer Active Tressa Stephens NORVASC 10 MG TABS 1 po daily AMLODIPINE BESYLATE 28785637422 Active Tressa Stephens Immunizations Vaccine Administration Date [...] % Encounters Code Encounter Date Provider Facility CPT-05551 Ofc Vst, Est Level III 15:18:13 YAYAT Tressa Stephens DO, FACP CPT-07437 Ofc Vst, Est Level IV 17:19:02 [employer] Tressa Conteh Stephens, DO, FACP CPT-69026 Ofc Vst, Est Level IV 16:15:30 [employer] Tressa Conteh Stephens, DO, FACP CPT-89185 Ofc Vst, Est Level IV 17:12:11 [employer] Tressa Conteh Stephens, DO, FACP CPT-77919 Ofc Vst, Est Level IV 16:52:17 [employer] Tressa Conteh Stephens, DO, FACP CPT-08864 Ofc Vst, Est Level III 16:30:23 CDT Tressa Conteh Stephens, DO, FACP CPT-64837 Ofc Vst, Est Level III 17:01:51 CDT Tressa Danica Conteh Stephens, DO, FACP CPT-86021 Ofc Vst, Est Level IV 17:35:57 CDT Tressaino Conteh Stephens, DO, FACP CPT-54796 Ofc Vst, Est Level III 12:47:22 CDT Tressaino Conteh Stephens, DO, FACP CPT-57236 Ofc Vst, Est Level IV 13:16:37 CDT Tressaino Cnoteh Stephens, DO, FACP CPT-32448 Ofc Vst, Est Level III 21:22:47 CDT Tressa Danica Conteh Stephens, DO, FACP CPT-18723 Ofc Vst, Est Level III 20:42:44 [employer] Tressa Conteh Stephens, DO, FACP CPT-13212 Ofc Vst, Est Level III 13:42:40 [employer] Tressa Danica Conteh Stephens, DO, FACP CPT-50900 Ofc Vst, Est Level IV 12:48:28 [employer] Tressa Conteh Stephens, DO, FACP CPT-29453 Ofc Vst, Est Level III 15:04:48 CDT Tressa Danica Conteh Stephens, DO, FACP CPT-93519 Ofc Vst, Est Level IV 17:19:18 CDT Tressa Danica Conteh Stephens, DO, FACP CPT-91419 Ofc Vst, Est Level III 09:04:25 CDT Tressa Danica Conteh Stephens, DO, FACP CPT-51992 Ofc Vst, Est Level III 16:10:44 CDT Tressa Danica Conteh Stephens, DO, FACP CPT-33305 Ofc Vst, Est Level IV 20:58:16 [employer] Tressa Conteh Kat, DO, FACP CPT-51933 Ofc Vst, Est Level IV 10:28:49 [employer] Tressa Conteh Stephens, DO, FACP CPT-62553 Ofc Vst, Est Level III 14:30:37 [employer] Tressa Conteh Stephens, DO, FACP CPT-02299 Ofc Vst, Est Level IV 11:15:48 CDT Tressa Conteh Kat, DO, FACP CPT-89423 Ofc Vst, Est Level IV 11:15:33 CDT Tressa Danica Conteh Stephens, DO, FACP CPT-01111 Ofc Vst, Est Level IV 11:30:32 CDT Tressa Danica Bustillos S Stephens, DO, FACP CPT-28042 Ofc Vst, Est Level IV 11:44:55 CDT Tressa Conteh Stephens, DO, FACP CPT-41305 Ofc Vst, Est Level IV 14:27:05 CDT Tressa Danica Bustillos S Stephens, DO, FACP CPT-19113 Ofc Vst, Est Level V 14:28:06 [employer] Tressa Conteh Stephens, DO, FACP CPT-31824 Ofc Vst, Est Level IV 12:03:43 [employer] Tressa Conteh Stephens, DO, FACP CPT-42809 Ofc Vst, Est Level V 15:06:48 [employer] Tressa Conteh Stephens, DO, FACP CPT-76661 Ofc Vst, Est Level III 15:36:23 [employer] Tressa Conteh Kat, DO, FACP CPT-55254 Ofc Vst, Est Level V 15:39:00 CDT Tressa Conteh Kat, DO, FACP CPT-87903 Ofc Vst, Est Level V 14:02:35 CDT Tressa Danica Conteh Kat, DO, FACP CPT-29687 Ofc Vst, Est Level III 15:00:21 CDT Tressaino Conteh Kat, DO, FACP CPT-37596 Ofc Vst, Est Level IV 13:45:16 CDT Tressa Conteh Kat, DO, FACP CPT-46585 Ofc Vst, Est Level IV 14:31:48 CDT Tressa Danica Conteh Kat, DO, FACP CPT-62961 Ofc Vst, Est Level IV 11:14:51 CDT Tressa Danica Jorgensenner Tressa Conteh Kat, DO, FACP CPT-28806 Ofc Vst, Est Level IV 14:36:19 CDT Tressa Danica Conteh Kat, DO, FACP CPT-10368 Ofc Vst, Est Level IV 15:56:12 [employer] Tressa Danica Conteh Kat, DO, FACP CPT-86510 Ofc Vst, Est Level IV 11:37:02 CDT Tressaino Conteh Stephens, DO, FACP CPT-77696 Ofc Vst, Est Level III 11:05:27 CDT Tressa Danica Conteh Stephens, DO, FACP CPT-42116 Ofc Vst, Est Level IV 12:12:37 CDT Tressa Danica Conteh Stephens, DO, FACP CPT-25745 Ofc Vst, Est Level IV 11:55:51 CDT Tressa Danica Conteh Stephens, DO, FACP CPT-89136 Ofc Vst, Est Level V 13:46:43 CDT Tressaino Conteh Stephens, DO, FACP CPT-33745 Ofc Vst, Est Level IV 14:23:36 CDT Tressa Danica Conteh Kat, DO, FACP CPT-06232 Ofc Vst, Est Level III 14:59:12 CDT Tressa Danica Conteh Stephens, DO, FACP CPT-36291 Ofc Vst, Est Level IV 16:01:19 CDT Tressa Conteh Stephens, DO, FACP CPT-81513 Ofc Vst, Est Level IV 15:21:33 [employer] Tressa Conteh Stephens, DO, FACP CPT-60458 Ofc Vst, Est Level IV 10:21:01 [employer] Tressa Conteh Stephens, DO, FACP CPT-98380 Ofc Vst, Est Level V 12:53:03 [employer] Tressa Conteh Stephens, DO, FACP CPT-46850 Ofc Vst, Est Level IV 10:54:43 CDT Tressaino Conteh Kat, DO, FACP CPT-28328 Ofc Vst, Est Level V 10:18:33 CDT Tressa Danica Conteh Stephens, DO, FACP CPT-48113 Ofc Vst, Est Level V 14:14:31 CDT Tressa Danica Conteh Stephens, DO, FACP CPT-33718 Ofc Vst, Est Level IV 12:25:33 CDT Tressa Danica Conteh Stephens, DO, FACP CPT-04717 Ofc Vst, Est Level IV 15:27:17 CDT Tressa Danica Nicki Wero Stephens, DO, FACP CPT-37703 Ofc Vst, Est Level IV 14:47:24 CDT Tressa Danica Conteh Stephens, DO, FACP CPT-90711 Ofc Vst, Est Level V 15:19:25 CDT Tressa Danica [facility] CPT-84222 Ofc Vst, Est Level V 11:41:37 CDT Tressa Danica Conteh Stephens, DO, FACP CPT-92935 Ofc Vst, Est Level V 11:12:22 CDT Tressa Danica Conteh Stephens, DO, FACP CPT-93711 Ofc Vst, Est Level IV 14:51:16 [employer] Tressa Danica Conteh Stephens, DO, FACP CPT-30353 Ofc Vst, Est Level IV 11:31:20 [employer] Tressa Danica Conteh Stephens, DO, FACP CPT-69199 Ofc Vst, Est Level IV 10:35:51 [employer] Tressa Danica Nicki S Stephens, DO, FACP CPT-45720 Ofc Vst, Est Level IV 11:46:27 [employer] Tressa Danica Nicki S Stephens, DO, FACP CPT-05268 Ofc Vst, Est Level IV 09:34:16 [employer] Tressa Danica Nicki S Stephens, DO, FACP CPT-37090 Ofc Vst, Est Level V 11:34:06 [employer] Tressa Conteh Kat, DO, FACP CPT-03797 Ofc Vst, Est Level IV 13:57:23 CDT Tresas Danica Jorgensenner Tressa Wero Kat, DO, FACP CPT-50110 Ofc Vst, Est Level IV 12:34:42 CDT Tressa Danica Conteh Kat, DO, FACP CPT-07278 Ofc Vst, Est Level IV 10:18:20 CDT Tressa Danica Kat Bustillos Wero Kat, DO, FACP CPT-64012 Ofc Vst, Est Level IV 10:10:02 [employer] Tressa Mishra Kat Bustillos Wero Kat, DO, FACP CPT-23305 Ofc Vst, Est Level IV 15:36:41 [employer] Tressa Conteh Kat, DO, FACP CPT-95606 Ofc Vst, Est Level III 10:41:26 [employer] Tressa Mishra Kat Stephens, DO, FACP CPT-80919 Ofc Vst, Est Level IV 13:29:32 CDT Tressa Mishra Kat Stephens, DO, FACP CPT-16077 Ofc Vst, Est Level IV 10:30:12 CDT Tressa Stephens [facility] CPT-73137 Ofc Vst, Est Level IV 11:11:37 [employer] Tressa Stephens [facility] CPT-02929 Ofc Vst, Est Level IV 11:06:40 [employer] Tressa Stephens [facility] CPT-80632 Ofc Vst, Est Level IV 12:01:24 CDT Tressa Stephens [facility] CPT-40494 Ofc Vst, Est Level IV 11:43:30 CDT Tressa Danica Stephens [facility] CPT-63141 Ofc Vst, Est Level IV 14:22:04 CDT Tressa Danica Stephens [facility] CPT-22739 Ofc Vst, Est Level IV 13:59:46 CDT Tressa Stephens [facility] CPT-43038 Ofc Vst, Est Level IV 14:02:19 [employer] Tressa Stephens [facility] CPT-01748 Ofc Vst, Est Level IV 15:07:12 [employer] Tressa Stephens [facility] CPT-36525 Ofc Vst, Est Level IV 15:11:06 [employer] Tressa Stephens [facility] CPT-23888 Ofc Vst, Est Level IV 15:30:27 [employer] Tressa Stephens [facility] CPT-91537 Ofc Vst, Est Level IV 11:04:18 [employer] Tressa Stephens [facility] CPT-57548 Ofc Vst, Est Level IV 13:50:55 [employer] Tressa Stephens [facility] CPT-12021 Ofc Vst, Est Level IV 16:27:37 CDT Tressa Stephens [facility] CPT-76047 Ofc Vst, Est Level IV 14:19:58 CDT Tressa Stephens [facility] CPT-38034 Ofc Vst, New Level IV 14:53:27 CDT Tressa Danica Stephens [facility] Procedures Code Procedure Name Date Entry Date Standard Description CPT-G0439 Medicare Annual Wellness Visit 17:05:42 [employer] CPT-G8446 E-Prescribing not done due to controlled substance 21:22 :47 CDT CPT-G8446 E-Prescribing not done due to controlled substance 20:42 :44 [employer] CPT-G8445 E-Prescribing Not sent due to no medication given 13:42: 40 [employer] CPT-G8445 E-Prescribing Not sent due to no medication given 12:48: 28 [employer] CPT-G8445 E-Prescribing Not sent due to no medication given 21:29: 51 [employer] CPT-G0439 Medicare Annual Wellness Visit 21:29:51 [employer] CPT-G8443 E-Prescribing Medication Sent 15:04:48 CDT CPT-G8446 E-Prescribing not done due to controlled substance 17:19 :18 CDT CPT-G8446 E-Prescribing not done due to controlled substance 09:04 :25 CDT CPT-G8445 E-Prescribing Not sent due to no medication given 16:10: 44 CDT CPT-G8445 E-Prescribing Not sent due to no medication given 20:58: 16 [employer] CPT-G8446 E-Prescribing not done due to controlled substance 10:28 :49 [employer] CPT-G8443 E-Prescribing Medication Sent 14:30:37 [employer] CPT-G8446 E-Prescribing not done due to controlled substance 15:30 :57 CDT CPT-G0438 Medicare Annual Wellness Visit Initial 15:30:57 CDT CPT-37167 Injection, Pneumovax 11:37:02 CDT CPT-8445 E-Prescribing Not sent due to no medication given 15:19: 25 CDT CPT-8445 E-Prescribing Not sent due to no medication given 11:41: 37 CDT CPT-68756 Influenza Vaccine 10:38:35 [employer] CPT-G0008 Administration Influenza Vaccine 10:38:35 [employer] CPT-36723 Influenza Vaccine 10:03:07 CDT CPT-G0008 Administration Influenza Vaccine 10:03:07 CDT
--- OUTSIDE RECORDS SUMMARY | 2018-04-13 07:01 | XMS REPORT | Clinical Summary ---
Author Author User, [employer] Organization [facility] Address Unknown Phone Unavailable Allergies, Adverse Reactions, [...] Stephens Unspecified hypothyroidism HYPERCHOLESTEROLEMIA 272.0 Active Tressa Stephnes Pure hypercholesterolemia HYPERTENSION, ACCELERATED OR MALIGNANT 401.0 Active Tressa Stephens Malignant essential hypertension OSTEOARTHRITIS 715.90 Active Tressa Stephens Osteoarthrosis, unspecified whether generalized or localized, involving unspecified site GASTROESOPHAGEAL REFLUX DISEASE, CHRONIC 530.81 Active Tressa Stephens Esophageal reflux HRT V07.4 Active Tressa tSephens Hormone replacement therapy (postmenopausal) BACK PAIN 724.5 [...] joint involving lower leg 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 DIARRHEA, RECURRENT 787.91 Resolved Tressa Stephens Diarrhea Medication List Medication Instructions Start Date Stop Date Generic Name NDC Status Provider Patient Instruction DURAGESIC-25 25 MCG/HR PT72 1 patch Q72 hours FENTANYL 99207147301 No Longer Active Tressa Stephens SYNTHROID 0.025 MG TAB 1 PO Daily along with 150mcg to equal 175mcg daily LEVOTHYROXINE SODIUM 60848675124 Active Tressa Stephens POTASSIUM CHLORIDE ER 20 MEQ CR-TABS 1 PO DAILY POTASSIUM CHLORIDE 87253489517 Active Carlyn Marks HYDROXYZINE HCL 25 MG TABS 1 PO TID prn HYDROXYZINE HCL 09881607408 No Longer Active Tressa Stephens VALIUM 2 MG TAB 1-2 PO before MRI procedure DIAZEPAM 43710034763 No Longer Active Tressaino Stephens OXYCONTIN 20 MG [id number] 1 PO Q 12hrs scheduled OXYCODONE HCL No Longer Active Tressa Danica Stephens HUMALOG KWIKPEN 100 UNIT/ML SOPN 12 units before each meal INSULIN LISPRO (HUMAN) 66897575247 Active Tressa Danica Stephens PREDNISONE 20 MG TAB 3 PO at one time daily PREDNISONE 56645074607 No Longer Active Tressa Danica Stephens ZOSTAVAX 11215 UNT/0.65ML SOLR 1 injection once to prevent Shingles ZOSTER VACCINE LIVE 01769521122 No Longer Active Tressaino Stephens VOLTAREN 1 % GEL Apply to affected area twice daily prn pain. DICLOFENAC SODIUM 54281518790 No Longer Active Tressa Stephens ASTEPRO 0.15 % SOLN 1 puff each nostril TID AZELASTINE HCL 87051195138 No Longer Active Tressaino Stephens CELEXA 20 MG TABS 1 PO daily CITALOPRAM HYDROBROMIDE 33611046323 No Longer Active Tressa Stephens KEFLEX 500 MG CAP 1 PO TID for 7 days CEPHALEXIN 18990856385 No Longer Active Carlyn Marks SYNTHROID 150 MCG TABS 1 PO Daily LEVOTHYROXINE SODIUM 22185252680 Active Carlyn Marks NEURONTIN 300 MG CAP 1-2 PO BID GABAPENTIN 74912255224 Active Tressa Danica LINFRAN ODT 8 MG TBDP 1 po q 6hrs prn nausea ONDANSETRON 24978375981 No Longer Active Tressa Stephens CARAFATE 1 GM TABS 1 PO 30 minutes before meals and at bedtime SUCRALFATE 69703525685 No Longer Active Tressaino Stephens SYNTHROID 150 MCG TABS 1 PO every other day alternating with 137mcg LEVOTHYROXINE SODIUM 82337199622 No Longer Active Tressa Danica Stephens INDOMETHACIN 50 MG CAPS 1 PO TID for 5 days INDOMETHACIN 78388989704 No Longer Active Tressaino Stephens PREDNISONE 5 MG TABS 2 Po daily for 2 weeks and then change to 1 PO daily for 2 weeks. PREDNISONE 08259649172 No Longer Active Tressaino Stephens XANAX 0.25 MG TABS 1-2 PO Q6hrs prn ALPRAZOLAM 69156060308 Active Carlyn [place] LASIX 20 MG TAB 1 PO BID prn swelling FUROSEMIDE 80801672761 Active Tressaino Stephens PREDNISONE 20 MG TAB 1 PO daily PREDNISONE 50349325164 No Longer Active Tressa Danica Stephens FLUDROCORTISONE ACETATE 0.1 MG TABS 1 PO daily FLUDROCORTISONE ACETATE 76715717330 No Longer Active Tressaino Stephens ACCURETIC 20-12.5 MG TABS 1 PO daily QUINAPRIL- HYDROCHLOROTHIAZIDE 43733744537 No Longer Active Tressaino Stephens SYNTHROID 150 MCG TABS 1 PO alternating with 137 mcg every other day LEVOTHYROXINE SODIUM 88214134005 No Longer Active Tressaino Stephens OXYCODONE HCL 10 MG TABS 2 PO Q4hrs prn OXYCODONE HCL 30662572274 Active Tressaino Stephens OXYCONTIN 20 MG [id number] 1 PO Q12hrs scheduled OXYCODONE HCL 92192290932 No Longer Active Tressaino Stephens COREG 12.5 MG TABS 1 PO BID for Blood pressure (on hold 04/30) CARVEDILOL 09767804500 No Longer Active Tressa Danica Stephens DAGOBERTO 180 MG TABS 1 PO QD FEXOFENADINE HCL Active Tressa Danica Stephens ZOCOR 20 MG TAB 1 PO daily SIMVASTATIN 02748189713 Active Tressa Danica Stephens MIRALAX POWD 1 scoop in 4oz of water PO BID POLYETHYLENE GLYCOL 3350 99675101665 Active Susanna Bruno DARVOCET-N 100 100-650 MG TAB 1 PO Q6hrs prn pain PROPOXYPHENE N-APAP 21625741105 No Longer Active Tressa Danica LAW'S NASAL SPRAY (DEXAMETHASONE, GENTAMICIN, SALINE) 2 puffs each nostril TID x [address] LAW'Wero NASAL SPRAY ( DEXAMETHASONE, GENTAMICIN, SALINE) No Longer Active Tressa Danica Stephens SINEMET 25-100 MG TABS 1 po TID CARBIDOPA-LEVODOPA 80822404489 Active Tressa Danica Stephens BENADRYL 25 MG CAP 1 PO Q6hrs prn itching DIPHENHYDRAMINE HCL 81334021784 No Longer Active Tressa Danica Stephens NEXIUM 40 MG CPDR 1 PO daily ESOMEPRAZOLE MAGNESIUM 58465458191 Active Tressa Danica Stephens K-PHOS TABS 1 po BID POTASSIUM PHOSPHATE MONOBASIC TABS 33615025794 No Longer Active Tressa Danica Stephens MICARDIS 80 MG TABS 1 po daily TELMISARTAN 21835978092 Active Tressa Danica Stephens MULTIVITAMINS TABS 1 PO QD MULTIPLE VITAMIN 99111642011 No Longer Active Tressa Danica Stephens LANTUS SOLOSTAR 100 UNIT/ML SOLN 40 units SQ QHS INSULIN GLARGINE 08249057446 Active Tressa Danica Stephens PATANOL 0.1 % SOLN 2 drops in each eye BID prn OLOPATADINE HCL 45463181260 No Longer Active Tressa Danica Stephens FISH OIL 1000 MG CAPS 2 tabs po TID OMEGA-3 FATTY ACIDS 22919648247 No Longer Active Tressa Danica Stephens PREMARIN 1.25 MG TAB 1 PO daily ESTROGENS CONJUGATED 59611362808 Active Tressa Danica Stephens PEN NEEDLES 1/2" 29G X 12MM MISC as directed on the Lantus Pen INSULIN PEN NEEDLE 25489112920 No Longer Active Tressa Danica Kat BD INSULIN SYRINGE ULTRAFINE 29G X 1/2" 1 ML MISC as directed DX: Diabetes INSULIN SYRINGE-NEEDLE U-100 28978503863 No Longer Active Tressa Danica Stephens LOVAZA 1 GM CAPS 2 po BID [id number] ETHYL ESTERS 41244648782 Active Tressa Danica Stephens PREDNISONE 10 MG TAB 1 PO daily PREDNISONE 70951095239 No Longer Active Tressa Danica Stephens ALPRAZOLAM 0.25 MG TABS 1/2 to 1 tab po q 8 hrs prn anxiety 07/24 ALPRAZOLAM 79401260758 No Longer Active Tressa Danica Stephens TRANXENE-T 7.5 MG TABS 1 po BID prn CLORAZEPATE DIPOTASSIUM 96877432434 Active Carlyn Selina ZESTRIL 20 MG TABS 1 po daily LISINOPRIL 05899464652 No Longer Active Tressa Danica Stephens MUCINEX 600 MG [id number] 1 po TID GUAIFENESIN 29157197619 Active Tressa Danica Stephens DARVOCET-N 100 100-650 MG TAB 1 PO Q6hrs prn pain PROPOXYPHENE N-APAP 16558305346 No Longer Active Tressa Danica Stephens METANX 2.8-25-2 MG TABS 1 PO daily [id number] 22389158833 No Longer Active Tressa Danica Stephens SINEMET 25-100 MG TABS 2 PO BID prn CARBIDOPA-LEVODOPA 89061070618 No Longer Active Tressa Danica Stephens LOVAZA 1 GM CAPS 2 po BID [id number]-7-[id number] ETHYL ESTERS 63758444852 No Longer Active Tressa Danica Stephens LORTAB 10 TABS 1 po q 4 hrs prn pain HYDROCODONE- ACETAMINOPHEN TABS 61480088384 No Longer Active Tressa Danica Stephens CALCIUM 600 + D 600-200 MG-UNIT TABS 1 po daily CALCIUM CARBONATE-VITAMIN D 48675292656 Active Tressa Danica Stephens VITAMIN C 500 MG TABS 1 po BID ASCORBIC ACID 04205698265 Active Tressa Danica Stephens CLORAZEPATE DIPOTASSIUM 3.75 MG TABS 1 tab 2 times daily prn CLORAZEPATE DIPOTASSIUM 44574572688 No Longer Active Tressa Danica Stephens PRILOSEC 20 MG CAP CR 1 PO QD OMEPRAZOLE 09120268018 No Longer Active Tressa Danica Stephens PREMARIN 1.25 MG TABS 1 po daily ESTROGENS CONJUGATED 00096174924 No Longer Active Tressa Danica Stephens LIPITOR 20 MG TABS 1 po daily ATORVASTATIN CALCIUM 69518326984 No Longer Active Tressa Danica Stephens CLONIDINE HCL 0.1 MG TAB 1 po BID CLONIDINE HCL 86225619095 No Longer Active Tressa Danica Stephens ACCURETIC 20-12.5 MG TABS 2 PO QAM QUINAPRIL- HYDROCHLOROTHIAZIDE 99288552611 No Longer Active Tressa Danica Stephens MICARDIS 80 MG TABS 1 PO QPM TELMISARTAN 08550250448 No Longer Active Tressa Danica Stephens GLUCOVANCE 5-500 MG TABS 1 tab po BID GLYBURIDE-METFORMIN 62064458105 No Longer Active Tressa Danica Stephens LEVEMIR 100 UNIT/ML SOLN 40 units at HS INSULIN DETEMIR 11624151958 No Longer Active Tressaino Stephens TAMIFLU 75 MG CAPS 1 PO daily for 10 days OSELTAMIVIR PHOSPHATE 96929981588 No Longer Active Matthieu Sonya PREDNISONE 10 MG TABS 1 PO Daily PREDNISONE 78331027964 No Longer Active Tressaino Stephens LANTUS 100 UNIT/ML SOLN (INSULIN GLARGINE) PEN Take 32 units SQ QHS LANTUS 100 UNIT/ML SOLN (INSULIN GLARGINE) PEN No Longer Active Tressaino Stephens CEFTIN 250 MG TABS 1 PO BID CEFUROXIME AXETIL 83020540707 No Longer Active Tressa LAW'S NASAL SPRAY (DEXAMETHASONE, GENTAMICIN, SALINE) 2 puffs each nostril TID for [address] LAW'Wero NASAL SPRAY ( DEXAMETHASONE, GENTAMICIN, SALINE) No Longer Active Tressa Stephens ATROVENT 0.06 % SOLN 2 puffs each nostril TID prn runny nose and sinus drainage IPRATROPIUM BROMIDE 15973849213 No Longer Active Tressaino Stephens MUCINEX DM 30-600 MG TB12 1 PO Q12hrs DEXTROMETHORPHAN- GUAIFENESIN 60635037032 No Longer Active Tressa Stephens ADVAIR DISKUS 100-50 MCG/DOSE MISC 1 puff BID FLUTICASONE-SALMETEROL 31315178125 No Longer Active Tressaino Stephens ROBITUSSIN A-C 10-100 MG/5ML SYRUP 1 teaspoon PO Q 4-6 hr prn ROBITUSSIN A-C 10-100 MG/5ML SYRUP 16967530201 No Longer Active Tressaino Stephens TESSALON 200 MG CAPS 1 PO TID prn cough BENZONATATE 11925626446 No Longer Active Bhumi Ryan ROBITUSSIN A-C 10-100 MG/5ML SYRUP 1 teaspoon PO Q 4-6 hr prn ROBITUSSIN A-C 10-100 MG/5ML SYRUP 58454655529 No Longer Active Bhumi URRUTIACET-N 100 100-650 MG TABS 1 po q 4 hrs. prn PROPOXYPHENE N-APAP 32588605465 No Longer Active Tressa Danica Stephens SALSALATE 750 MG TABS 1 po QID prn SALSALATE 25354626985 No Longer Active Tressa Danica Stephens DAGOBERTO 180 MG TABS 1 PO QD FEXOFENADINE HCL 07851375468 No Longer Active Tressa Danica LAW'S NASAL SPRAY (DEXAMETHASONE, GENTAMICIN, SALINE) 2 puffs each nostril TID DR. LAW'Wero NASAL SPRAY (DEXAMETHASONE, GENTAMICIN, SALINE) No Longer Active Tressa Danica Stephens AMOXICILLIN 500 MG CAP 1 PO TID AMOXICILLIN 09759233562 No Longer Active Tressa Danica Stephens AVANDIA 8 MG TABS 1 po daily ROSIGLITAZONE MALEATE 00585256366 No Longer Active Tressa Danica Stephens DICLOFENAC POTASSIUM 50 MG TABS 1 po TID DICLOFENAC POTASSIUM 70990532235 No Longer Active Tressa Danica Stephens DAGOBERTO 180 MG TABS 1 PO QD FEXOFENADINE HCL 12822043827 No Longer Active Tressa Danica Stephens DRIXORAL 6-120 MG TB12 1 sparingly DEXBROMPHENIRAMINE -PSEUDOEPH 20257029319 No Longer Active Tressa Danica Stephens TOY PLUS EXTRA STRENGTH 500 MG TABS 1 PO daily ASPIRIN BUFFERED 57098631907 No Longer Active Tressa Danica Stephens DETROL LA 4 MG CP24 1 PO daily TOLTERODINE TARTRATE 77358093992 Active Tressa Danica Stephens B-D U/F PEN NEEDLE 31G X 8 MM MISC 1 PO daily Dx: DM Type II INSULIN PEN NEEDLE 20821083584 Active Tressa Stephens OMACOR 1 PO daily OMACOR No Longer Active Tressa Stephens [employer] STRIPS STRP as directed TID Dx: DM Type II GLUCOSE BLOOD 51891204370 Active Narayan Fortune LOVENOX 40 MG/0.4ML SOLN 1 injection daily. Begin Friday05/03/05. ENOXAPARIN SODIUM 78589711682 No Longer Active Tressa Stephens FLUVIRIN INJ done at health dept INFLUENZA VAC TYP A& B SURF ANT 75145486066 No Longer Active Tressa Stephens PNEUMOVAX 23 25 MCG/0.5ML INJ done from health dept PNEUMOCOCCAL VAC POLYVALENT 17386112798 No Longer Active Tressa Stephens MUCINEX 600 MG TB12 1 PO Q12hrs GUAIFENESIN 47863408590 No Longer Active Tressa Stephens HUMALOG MIX 75/25 75-25 % SUSP 26 units in am, 19 units in pm INSULIN LISP & LISP PROT (HUM) 32332819996 No Longer Active Tressa Stephens MULTIVITAMINS TABS 1 po daily MULTIPLE VITAMIN 53904569170 Active Tressa Stephens NEXIUM 40 MG CPDR 1 po daily ESOMEPRAZOLE MAGNESIUM 11852899094 No Longer Active Tressa Stephens NORVASC 10 MG TABS 1 po daily AMLODIPINE BESYLATE 50311842283 Active Tressa Stephens Immunizations Vaccine Administration Date [...] Range Description blood pressure, diastolic - 8462-4 82 mm[Hg] BP gallardo blood pressure, systolic - 8480-6 138 mm[Hg] BP sys pulse rate E&M - 8867-4 64 /min Heart rate respiratory rate E&M - 9279-1 14 /min Resp rate temperature E&M 98.6 [degF] Body temperature weight E&M - 3141-9 220 [lb_av] Weight Measured blood pressure, diastolic - [...] % Encounters Code Encounter Date Provider Facility CPT-24084 Ofc Vst, Est Level IV 13:49:21 CDT Tressa Danica Jorgensenner, DO, FACP CPT-66571 Ofc Vst, Est Level III 18:13:30 CDT Tressa Danica Stephens, DO, FACP CPT-63779 Ofc Vst, Est Level III 16:51:35 CDT Tressa Stephens, DO, FACP CPT-35667 Ofc Vst, Est Level III 15:18:13 CDT Tressa Stephens, DO, FACP CPT-55231 Ofc Vst, Est Level IV 17:19:02 BILINGUAL SPEECH LANGUAGE PATHOLOGIST Tressa Jorgensenner, DO, FACP CPT-86520 Ofc Vst, Est Level IV 16:15:30 BILINGUAL SPEECH LANGUAGE PATHOLOGIST Tressa Jorgensenner, DO, FACP CPT-68584 Ofc Vst, Est Level IV 17:12:11 BILINGUAL SPEECH LANGUAGE PATHOLOGIST Tressa Stephens, DO, FACP CPT-62298 Ofc Vst, Est Level IV 16:52:17 BILINGUAL SPEECH LANGUAGE PATHOLOGIST Tressa Stephens, DO, FACP CPT-33827 Ofc Vst, Est Level III 16:30:23 CDT Tressa Stephens, DO, FACP CPT-68458 Ofc Vst, Est Level III 17:01:51 CDT Tressa Stephens, DO, FACP CPT-71171 Ofc Vst, Est Level IV 17:35:57 CDT Tressa Conteh Stephens, DO, FACP CPT-33866 Ofc Vst, Est Level III 12:47:22 CDT Tressa Danica Conteh Stephens, DO, FACP CPT-24760 Ofc Vst, Est Level IV 13:16:37 CDT Tressaino Conteh Stephens, DO, FACP CPT-36477 Ofc Vst, Est Level III 21:22:47 CDT Tressa Danica Conteh Stephens, DO, FACP CPT-30591 Ofc Vst, Est Level III 20:42:44 BILINGUAL SPEECH LANGUAGE PATHOLOGIST Tressa Conteh Kat, DO, FACP CPT-49494 Ofc Vst, Est Level III 13:42:40 BILINGUAL SPEECH LANGUAGE PATHOLOGIST Tressa Conteh Kat, DO, FACP CPT-37540 Ofc Vst, Est Level IV 12:48:28 BILINGUAL SPEECH LANGUAGE PATHOLOGIST Tressa Conteh Kat, DO, FACP CPT-21673 Ofc Vst, Est Level III 15:04:48 CDT Tressa Conteh Stephens, DO, FACP CPT-33873 Ofc Vst, Est Level IV 17:19:18 CDT Tressa Conteh Kat, DO, FACP CPT-25363 Ofc Vst, Est Level III 09:04:25 CDT Tressaino Conteh Stephens, DO, FACP CPT-36751 Ofc Vst, Est Level III 16:10:44 CDT Tressa Conteh Stephens, DO, FACP CPT-88916 Ofc Vst, Est Level IV 20:58:16 BILINGUAL SPEECH LANGUAGE PATHOLOGIST Tressa Conteh Kat, DO, FACP CPT-18907 Ofc Vst, Est Level IV 10:28:49 BILINGUAL SPEECH LANGUAGE PATHOLOGIST Tressa Conteh Kat, DO, FACP CPT-10295 Ofc Vst, Est Level III 14:30:37 BILINGUAL SPEECH LANGUAGE PATHOLOGIST Tressa Conteh Stephens, DO, FACP CPT-00274 Ofc Vst, Est Level IV 11:15:48 CDT Tressa Conteh Stephens, DO, FACP CPT-48795 Ofc Vst, Est Level IV 11:15:33 CDT Tressa Danica Conteh Stephens, DO, FACP CPT-42866 Ofc Vst, Est Level IV 11:30:32 CDT Tressa Danica Conteh Stephens, DO, FACP CPT-85851 Ofc Vst, Est Level IV 11:44:55 CDT Tressa Conteh Stephens, DO, FACP CPT-88835 Ofc Vst, Est Level IV 14:27:05 CDT Tressaino Conteh Stephens, DO, FACP CPT-91392 Ofc Vst, Est Level V 14:28:06 BILINGUAL SPEECH LANGUAGE PATHOLOGIST Tressa Conteh Stephens, DO, FACP CPT-30444 Ofc Vst, Est Level IV 12:03:43 BILINGUAL SPEECH LANGUAGE PATHOLOGIST Tressa Conteh Stephens, DO, FACP CPT-21363 Ofc Vst, Est Level V 15:06:48 BILINGUAL SPEECH LANGUAGE PATHOLOGIST Tressa Conteh Stephens, DO, FACP CPT-69812 Ofc Vst, Est Level III 15:36:23 BILINGUAL SPEECH LANGUAGE PATHOLOGIST Tressa Conteh Stephens, DO, FACP CPT-43186 Ofc Vst, Est Level V 15:39:00 CDT Tressa Conteh Stephens, DO, FACP CPT-52260 Ofc Vst, Est Level V 14:02:35 CDT Tressa Conteh Kat, DO, FACP CPT-32713 Ofc Vst, Est Level III 15:00:21 CDT Tressa Danica Conteh Stephens, DO, FACP CPT-96342 Ofc Vst, Est Level IV 13:45:16 CDT Tressa Danica Conteh Stephens, DO, FACP CPT-17745 Ofc Vst, Est Level IV 14:31:48 CDT Tressa Danica Conteh Stephens, DO, FACP CPT-99997 Ofc Vst, Est Level IV 11:14:51 CDT Tressa Danica Conteh Stephens, DO, FACP CPT-30921 Ofc Vst, Est Level IV 14:36:19 CDT Tressa Danica Conteh Stephens, DO, FACP CPT-12562 Ofc Vst, Est Level IV 15:56:12 BILINGUAL SPEECH LANGUAGE PATHOLOGIST Tressa Danica Conteh Kat, DO, FACP CPT-10938 Ofc Vst, Est Level IV 11:37:02 CDT Tressa Danica Conteh Kat, DO, FACP CPT-48425 Ofc Vst, Est Level III 11:05:27 CDT Tressa Danica Conteh Stephens, DO, FACP CPT-54006 Ofc Vst, Est Level IV 12:12:37 CDT Tressa Danica Conteh Kat, DO, FACP CPT-87362 Ofc Vst, Est Level IV 11:55:51 CDT Tressa Danica Conteh Stephens, DO, FACP CPT-84874 Ofc Vst, Est Level V 13:46:43 CDT Tressa Danica Bustillos S Kat, DO, FACP CPT-84500 Ofc Vst, Est Level IV 14:23:36 CDT Tressa Danica Conteh Kat, DO, FACP CPT-27796 Ofc Vst, Est Level III 14:59:12 CDT Tressaino Conteh Stephens, DO, FACP CPT-59385 Ofc Vst, Est Level IV 16:01:19 CDT Tressa Danica Conteh Stephens, DO, FACP CPT-59688 Ofc Vst, Est Level IV 15:21:33 BILINGUAL SPEECH LANGUAGE PATHOLOGIST Tressa Conteh Stephens, DO, FACP CPT-07893 Ofc Vst, Est Level IV 10:21:01 BILINGUAL SPEECH LANGUAGE PATHOLOGIST Tressa Conteh Stephens, DO, FACP CPT-45140 Ofc Vst, Est Level V 12:53:03 BILINGUAL SPEECH LANGUAGE PATHOLOGIST Tressa Conteh Stephens, DO, FACP CPT-24190 Ofc Vst, Est Level IV 10:54:43 CDT Tressa Danica Conteh Stephens, DO, FACP CPT-21548 Ofc Vst, Est Level V 10:18:33 CDT Tressaino Conteh Stephens, DO, FACP CPT-10092 Ofc Vst, Est Level V 14:14:31 CDT Tressa Danica Conteh Stephens, DO, FACP CPT-14941 Ofc Vst, Est Level IV 12:25:33 CDT Tressaino Conteh Stephens, DO, FACP CPT-25128 Ofc Vst, Est Level IV 15:27:17 CDT Tressa Danica Conteh Stephens, DO, FACP CPT-02039 Ofc Vst, Est Level IV 14:47:24 CDT Tressa Danica Conteh Stephens, DO, FACP CPT-94931 Ofc Vst, Est Level V 15:19:25 CDT Tressaino [facility] CPT-40531 Ofc Vst, Est Level V 11:41:37 CDT Tressa Danica Conteh Stephens, DO, FACP CPT-80924 Ofc Vst, Est Level V 11:12:22 CDT Tressa Conteh Stephens, DO, FACP CPT-19026 Ofc Vst, Est Level IV 14:51:16 BILINGUAL SPEECH LANGUAGE PATHOLOGIST Tressa Conteh Stephens, DO, FACP CPT-18152 Ofc Vst, Est Level IV 11:31:20 BILINGUAL SPEECH LANGUAGE PATHOLOGIST Tressa Conteh Stephens, DO, FACP CPT-97736 Ofc Vst, Est Level IV 10:35:51 BILINGUAL SPEECH LANGUAGE PATHOLOGIST Tressa Conteh Stephens, DO, FACP CPT-60271 Ofc Vst, Est Level IV 11:46:27 BILINGUAL SPEECH LANGUAGE PATHOLOGIST Tressa Conteh Stephens, DO, FACP CPT-86039 Ofc Vst, Est Level IV 09:34:16 BILINGUAL SPEECH LANGUAGE PATHOLOGIST Tressa Conteh Stephens, DO, FACP CPT-20019 Ofc Vst, Est Level V 11:34:06 BILINGUAL SPEECH LANGUAGE PATHOLOGIST Tressa Conteh Stephens, DO, FACP CPT-34241 Ofc Vst, Est Level IV 13:57:23 CDT Tressa Conteh Stephens, DO, FACP CPT-31602 Ofc Vst, Est Level IV 12:34:42 CDT Tressaino Conteh Stephens, DO, FACP CPT-50428 Ofc Vst, Est Level IV 10:18:20 CDT Tressa Conteh Stephens, DO, FACP CPT-71147 Ofc Vst, Est Level IV 10:10:02 BILINGUAL SPEECH LANGUAGE PATHOLOGIST Tressa Bustillos S Stephens, DO, FACP CPT-45052 Ofc Vst, Est Level IV 15:36:41 BILINGUAL SPEECH LANGUAGE PATHOLOGIST Tressa Conteh Stephens, DO, FACP CPT-19531 Ofc Vst, Est Level III 10:41:26 BILINGUAL SPEECH LANGUAGE PATHOLOGIST Tressa Stephens, DO, FACP CPT-99197 Ofc Vst, Est Level IV 13:29:32 CDT Tressa Stephens, DO, FACP CPT-13804 Ofc Vst, Est Level IV 10:30:12 CDT Tressa Stephens [facility] CPT-33208 Ofc Vst, Est Level IV 11:11:37 BILINGUAL SPEECH LANGUAGE PATHOLOGIST Tressa Stephens [facility] CPT-20597 Ofc Vst, Est Level IV 11:06:40 BILINGUAL SPEECH LANGUAGE PATHOLOGIST Tressa Stephens [facility] CPT-75445 Ofc Vst, Est Level IV 12:01:24 CDT Tressa Stephens [facility] CPT-08986 Ofc Vst, Est Level IV 11:43:30 CDT Tressa Stephens [facility] CPT-14883 Ofc Vst, Est Level IV 14:22:04 CDT Tressa Stephens [facility] CPT-44766 Ofc Vst, Est Level IV 13:59:46 CDT Tressa Stephens [facility] CPT-39159 Ofc Vst, Est Level IV 14:02:19 BILINGUAL SPEECH LANGUAGE PATHOLOGIST Tressa Stephens [facility] CPT-92835 Ofc Vst, Est Level IV 15:07:12 BILINGUAL SPEECH LANGUAGE PATHOLOGIST Tressa Stephens [facility] CPT-64045 Ofc Vst, Est Level IV 15:11:06 BILINGUAL SPEECH LANGUAGE PATHOLOGIST Tressa Stephens [facility] CPT-60876 Ofc Vst, Est Level IV 15:30:27 BILINGUAL SPEECH LANGUAGE PATHOLOGIST Tressa Stephens [facility] CPT-89744 Ofc Vst, Est Level IV 11:04:18 BILINGUAL SPEECH LANGUAGE PATHOLOGIST Tressa Stephens [facility] CPT-26167 Ofc Vst, Est Level IV 13:50:55 BILINGUAL SPEECH LANGUAGE PATHOLOGIST Tressaino Stephens [facility] CPT-63278 Ofc Vst, Est Level IV 16:27:37 CDT Tressa Danica Stephens [facility] CPT-69849 Ofc Vst, Est Level IV 14:19:58 CDT Tressa Danica Jorgensenner [facility] CPT-72744 Ofc Vst, New Level IV 14:53:27 CDT Tressaino Gomeze Kat [facility] Procedures Code Procedure Name Date Entry Date Standard Description CPT-G0439 Medicare Annual Wellness Visit 17:05:42 BILINGUAL SPEECH LANGUAGE PATHOLOGIST CPT-G8446 E-Prescribing not done due to controlled substance 21:22 :47 CDT CPT-G8446 E-Prescribing not done due to controlled substance 20:42 :44 BILINGUAL SPEECH LANGUAGE PATHOLOGIST CPT-G8445 E-Prescribing Not sent due to no medication given 13:42: 40 BILINGUAL SPEECH LANGUAGE PATHOLOGIST CPT-G8445 E-Prescribing Not sent due to no medication given 12:48: 28 BILINGUAL SPEECH LANGUAGE PATHOLOGIST CPT-G8445 E-Prescribing Not sent due to no medication given 21:29: 51 BILINGUAL SPEECH LANGUAGE PATHOLOGIST CPT-G0439 Medicare Annual Wellness Visit 21:29:51 BILINGUAL SPEECH LANGUAGE PATHOLOGIST CPT-G8443 E-Prescribing Medication Sent 15:04:48 CDT CPT-G8446 E-Prescribing not done due to controlled substance 17:19 :18 CDT CPT-G8446 E-Prescribing not done due to controlled substance 09:04 :25 CDT CPT-G8445 E-Prescribing Not sent due to no medication given 16:10: 44 CDT CPT-G8445 E-Prescribing Not sent due to no medication given 20:58: 16 BILINGUAL SPEECH LANGUAGE PATHOLOGIST CPT-G8446 E-Prescribing not done due to controlled substance 10:28 :49 [employer] PATHOLOGIST CPT-G8443 E-Prescribing Medication Sent 14:30:37 [employer] PATHOLOGIST CPT-G8446 E-Prescribing not done due to controlled substance 15:30 :57 CDT CPT-G0438 Medicare Annual Wellness Visit Initial 15:30:57 CDT CPT-51915 Injection, Pneumovax 11:37:02 CDT CPT-8445 E-Prescribing Not sent due to no medication given 15:19: 25 CDT CPT-8445 E-Prescribing Not sent due to no medication given 11:41: 37 CDT CPT-76496 Influenza Vaccine 10:38:35 [employer] PATHOLOGIST CPT-G0008 Administration Influenza Vaccine 10:38:35 [employer] PATHOLOGIST CPT-91980 Influenza Vaccine 10:03:07 CDT CPT-G0008 Administration Influenza Vaccine 10:03:07 CDT
--- OUTSIDE RECORDS SUMMARY | 2018-04-13 07:09 | XMS REPORT | Clinical Summary ---
Author Author nicole steele [facility] [place] [address] Phone Unavailable Allergies, Adverse Reactions, Alerts Allergy Name Reaction Description Start Date Severity Status Provider No Known Allergies Anabel Main Conditions or Problems Problem Name Problem Code Onset Date Status Entry Date Provider Comment Standard Description Annotate DIABETES MELLITUS, TYPE II, UNCONTROLLED, W/VASCULAR COMPS 250.72 Active Tressa Stephens DIABETES WITH PERIPHERAL CIRCULATORY DISORDERS, TYPE II OR UNSPECIFIED TYPE, UNCONTROLLED HYPOTHYROIDISM 244.9 Active Tressa Stephens UNSPECIFIED HYPOTHYROIDISM HYPERCHOLESTEROLEMIA 272.0 Active Tressa Stephens PURE HYPERCHOLESTEROLEMIA HYPERTENSION, ACCELERATED OR MALIGNANT 401.0 Active Tressa Stephens ESSENTIAL HYPERTENSION, MALIGNANT OSTEOARTHRITIS 715.90 Active Tressa Stephens OSTEOARTHROSIS, UNSPECIFIED WHETHER GENERALIZED OR LOCALIZED, UNSPECIFIED SITE GASTROESOPHAGEAL REFLUX DISEASE, CHRONIC 530.81 Active Tressa Stephens ESOPHAGEAL REFLUX HRT V07.4 Active Tressa Stephens HORMONE REPLACEMENT THERAPY (POSTMENOPAUSAL) SLEEP APNEA, OBSTRUCTIVE 780.57 Active Tressa Stephens UNSPECIFIED SLEEP APNEA 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 Tressa Stephens IMMUNE THROMBOCYTOPENIC PURPURA BULLOUS PEMPHIGOID 694.5 Active Tressa Stephens 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 Tressa Stephens OTHER NONINFECTIOUS LYMPHEDEMA CHRONIC PAIN V15.89 Active Tressa Stephens OTHER SPECIFIED PERSONAL HISTORY PRESENTING HAZARDS TO HEALTH EDEMA LEG 782.3 Active Tressa Stephens EDEMA ABDOMINAL PAIN, EPIGASTRIC 789.06 Active Tressa Stephens ABDOMINAL PAIN, EPIGASTRIC KNEE PAIN 719.46 Active Tressa Stephens PAIN IN JOINT, LOWER LEG Medication List Medication Instructions Start Date Stop Date Generic Name NDC Status Provider Patient Instruction NORVASC 10 MG TABS 1 po daily AMLODIPINE BESYLATE 96282948604 Active Tressa Stephens MULTIVITAMINS TABS 1 po daily MULTIPLE VITAMIN 12414307660 Active Tressa Stephens ASCENSIA AUTODISC STRIPS STRP as directed TID Dx: DM Type II GLUCOSE BLOOD 04352008588 Active Narayan Fortune B-Aba U/F PEN NEEDLE 31G X 8 MM MISC 1 PO daily Dx: DM Type II INSULIN PEN NEEDLE 15393633995 Active Tressa Stephens DETROL LA 4 MG CP24 1 PO daily TOLTERODINE TARTRATE 45705804959 Active Tressa Stephens VITAMIN C 500 MG TABS 1 po BID ASCORBIC ACID 84985491052 Active Tressa Stephens CALCIUM 600 + D 600-200 MG-UNIT TABS 1 po daily CALCIUM CARBONATE-VITAMIN D 18769647174 Active Tressa Stephens MUCINEX 600 MG [id number] 1 po TID GUAIFENESIN 39094557178 Active Tressa Stephens TRANXENE-T 7.5 MG TABS 1 po BID prn CLORAZEPATE DIPOTASSIUM 65417260686 Active Tressa Stephens LOVAZA 1 GM CAPS 2 po BID UPAYE-4-MOPC ETHYL ESTERS 20090627852 Active Tressa Stephens HUMALOG PEN 100 UNIT/ML SOLN 12 units before each meal INSULIN LISPRO ( HUMAN) Active Tressa Stephens PREMARIN 1.25 MG TAB 1 PO daily ESTROGENS CONJUGATED 66455132873 Active Tressa Danica Stephens LANTUS SOLOSTAR 100 UNIT/ML SOLN 40 units SQ QHS INSULIN GLARGINE 20917436350 Active Tressa Danicamahsa Stephens MICARDIS 80 MG TABS 1 po daily TELMISARTAN 24732738659 Active Tressa Danica Stephens NEXIUM 40 MG CPDR 1 PO daily ESOMEPRAZOLE MAGNESIUM 98755660443 Active Tressa Danica Kat SINEMET 25-100 MG TABS 1 po TID CARBIDOPA-LEVODOPA 32666616611 Active Tressa Danica Kat MIRALAX POWD 1 scoop in 4oz of water PO BID POLYETHYLENE GLYCOL 3350 23254101755 Active Susanna Bruno ZOCOR 20 MG TAB 1 PO daily SIMVASTATIN 64276187620 Active Tressa Danica Stephens DAGOBERTO 180 MG TABS 1 PO QD FEXOFENADINE HCL Active Tressa Danica Stephens OXYCODONE HCL 10 MG TABS 2 PO Q4hrs prn OXYCODONE HCL 71111609127 Active Tressa Danica Stephens OXYCONTIN 20 MG [id number] 1 PO Q 12hrs scheduled OXYCODONE HCL Active Tressa Danica Stephens K-DUR 20 MEQ TAB CR 1 PO daily POTASSIUM CHLORIDE Active Tressa Danica Stephens LASIX 20 MG TAB 1 PO BID prn swelling FUROSEMIDE 72828922535 Active Tressa Danica Stephens XANAX 0.25 MG TABS 1-2 PO Q6hrs prn ALPRAZOLAM 92245576384 Active Tressa Danica Stephens NEURONTIN 300 MG CAP 1-2 PO BID GABAPENTIN 05458520366 Active Tressa Danica Stephens SYNTHROID 150 MCG TABS 1 PO Daily LEVOTHYROXINE SODIUM 35386085351 Active Tressa Danica Stephens HYDROXYZINE HCL 25 MG TABS 1 PO TID prn HYDROXYZINE HCL 22422704685 Active Tressa Stephens Immunizations Vaccine Administration Date Value Standard Description Influenza vaccine DONE influenza virus vaccine, unspecified formulation Influenza vaccine received influenza virus vaccine, unspecified formulation pneumococcal immunization administered Dr. Stephens pneumococcal polysaccharide vaccine, 23 valent Influenza vaccine Done influenza virus vaccine, unspecified formulation Comvax, combined Hemophilus influenza B and Hepatitis B virus vaccine Done Haemophilus influenzae type b conjugate and Hepatitis B vaccine Vital Signs Date Name Value Unit Range Description blood pressure, diastolic 80 mm[Hg] BP gallardo blood pressure, systolic 128 mm[Hg] BP sys pulse rate E&M 60 /min Heart rate respiratory rate E&M 14 /min Resp rate temperature E&M 97.2 [degF] Body temperature weight E&M 210 [lb_av] Weight Measured blood pressure, diastolic 90 mm[Hg] BP gallardo blood pressure, systolic 152 mm[Hg] BP sys pulse rate E&M 66 /min Heart rate respiratory rate E&M 14 /min Resp rate temperature E&M 98.6 [degF] Body temperature weight E&M 211 [lb_av] Weight Measured blood pressure, diastolic 82 mm[Hg] BP gallardo blood pressure, systolic 162 mm[Hg] BP sys pulse rate E&M 70 /min Heart rate respiratory rate E&M 16 /min Resp rate temperature E&M 98.6 [degF] Body temperature blood pressure, diastolic 74 mm[Hg] BP gallardo blood pressure, systolic 118 mm[Hg] BP sys pulse rate E&M 60 /min Heart rate respiratory rate E&M 14 /min Resp rate temperature E&M 98.6 [degF] Body temperature weight E&M 221 [lb_av] Weight Measured blood pressure, diastolic 70 mm[Hg] BP gallardo blood pressure, systolic 140 mm[Hg] BP sys pulse rate E&M 64 /min Heart rate respiratory rate E&M 14 /min Resp rate temperature E&M 98.6 [degF] Body temperature weight E&M 200 [lb_av] Weight Measured blood pressure, diastolic 68 mm[Hg] BP gallardo blood pressure, systolic 140 mm[Hg] BP sys pulse rate E&M 50 /min Heart rate respiratory rate E&M 14 /min Resp rate weight E&M 204 [lb_av] Weight Measured blood pressure, diastolic 65 mm[Hg] BP gallardo blood pressure, systolic 140 mm[Hg] BP sys pulse rate E&M 60 /min Heart rate respiratory rate E&M 14 /min Resp rate weight E&M 200 [lb_av] Weight Measured blood pressure, diastolic 70 mm[Hg] BP gallardo blood pressure, systolic 145 mm[Hg] BP sys pulse rate E&M 60 /min Heart rate respiratory rate E&M 14 /min Resp rate weight E&M 200 [lb_av] Weight Measured blood pressure, diastolic 80 mm[Hg] BP gallardo blood pressure, systolic 146 mm[Hg] BP sys pulse rate E&M 58 /min Heart rate respiratory rate E&M 14 /min Resp rate weight E&M 200 [lb_av] Weight Measured blood pressure, diastolic 90 mm[Hg] BP gallardo blood pressure, systolic 142 mm[Hg] BP sys pulse rate E&M 80 /min Heart rate respiratory rate E&M 14 /min Resp rate temperature E&M 97.7 [degF] Body temperature weight E&M 187 [lb_av] Weight Measured blood pressure, diastolic 90 mm[Hg] BP gallardo blood pressure, systolic 150 mm[Hg] BP sys pulse rate E&M 55 /min Heart rate respiratory rate E&M 14 /min Resp rate temperature E&M 98.6 [degF] Body temperature weight E&M 200 [lb_av] Weight Measured Diagnostic Results Date [...] platelet count 168 10*3/mm3 Clinical Lists Update: CMP,Chol,Trig,HgA1c,TSH,Free T4 - Chemistry Estimated Glomerular Filtration Rate (calc) >60 mL/min/1.73m2 albumin, serum 3.5 g/dL sodium, serum 135 mmol/L triglyceride, serum, fasting [...] 15 mg/dL alkaline phosphatase, serum 113 U/L glucose, plasma fasting 192 mg/dL Clinical Lists Update: CMP,FLP,HgA1c - Chemistry Estimated Glomerular Filtration Rate (calc) >60 mL/min/1.73m2 glucose, plasma fasting 197 mg/dL sodium, serum 137 mmol/L triglyceride, serum, fasting 144 mg/dL bilirubin, serum, total 0.3 mg/dL alanine aminotransferase (SGPT), serum 17 U/L aspartate aminotransferase (SGOT), serum 41 U/L protein, total, serum 6.2 g/dL potassium, serum 4.1 mmol/L LDL cholesterol, serum 15 mg/dL hemoglobin A1C, blood, as % of total hemoglobin 8.1 % HDL cholesterol, serum 68 mg/dL creatinine, serum 0.67 mg/dL carbon dioxide, venous blood 30 mmol/L cholesterol, serum 112 mg/dL chloride, serum 101 mmol/L calcium, serum 8.6 mg/dL urea nitrogen, blood 15 mg/dL alkaline phosphatase, serum 101 U/L albumin, serum 3.2 g/dL Clinical Lists Update: CMP,FLP,HgA1c,TSH,Free T4,Microalbumin - Chemistry glucose, plasma fasting 257 mg/dL anion gap, serum 7 albumin, serum 3.3 g/dL alkaline phosphatase, serum 76 U/L urea nitrogen, blood 13 mg/dL sodium, serum 137 mmol/L triglyceride, serum, fasting [...] serum 101 mmol/L calcium, serum 8.7 mg/dL Clinical Lists Update: CMP,FLP,HgA1c,TSH,Free T4,Microalbumin - Urinalysis microalbumin, urine, semiquantitative 1.5 mg/dL Clinical Lists Update: HgA1c - Chemistry hemoglobin A1C, blood, as % of total hemoglobin 8.6 % Clinical Lists Update: TSH,.Free T4 - Chemistry thyroxine, serum, free 0.84 ng/dL thyroid stimulating hormone, serum 4.36 u[iU]/mL
--- OUTSIDE RECORDS SUMMARY | 2018-04-13 07:12 | XMS REPORT | Clinical Summary ---
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 Active Tressa Stephens DIARRHEA Medication List Medication Instructions Start Date Stop Date Generic Name NDC Status Provider Patient Instruction NORVASC 10 MG TABS 1 po daily AMLODIPINE BESYLATE 97580736735 Active Tressa Stephens MULTIVITAMINS TABS 1 po daily MULTIPLE VITAMIN 11029016922 Active Tressa Stephens ASCENSIA AUTODISC STRIPS STRP as directed TID Dx: DM Type II GLUCOSE BLOOD 55352983883 Active Narayan Mcbride U/F PEN NEEDLE 31G X 8 MM MISC 1 PO daily Dx: DM Type II INSULIN PEN NEEDLE 59234998546 Active Tressa Stephens DETROL LA 4 MG CP24 1 PO daily TOLTERODINE TARTRATE 02171533805 Active Tressa Stephens VITAMIN C 500 MG TABS 1 po BID ASCORBIC ACID 10147559773 Active Tressa Stephens CALCIUM 600 + D 600-200 MG-UNIT TABS 1 po daily CALCIUM CARBONATE-VITAMIN D 05368347085 Active Tressa Stephens MUCINEX 600 MG [id number] 1 po TID GUAIFENESIN 26128553156 Active Tressa Stephens TRANXENE-T 7.5 MG TABS 1 po BID prn CLORAZEPATE DIPOTASSIUM 59906385021 Active Tressa Stephens LOVAZA 1 GM CAPS 2 po BID LRRQM-1-MSAT ETHYL ESTERS 57214356728 Active Tressaino Mishra Stephens HUMALOG PEN 100 UNIT/ML SOLN 12 units before each meal INSULIN LISPRO ( HUMAN) Active Tressa Danica Stephens PREMARIN 1.25 MG TAB 1 PO daily ESTROGENS CONJUGATED 33174744335 Active Tressaino Stephens LANTUS SOLOSTAR 100 UNIT/ML SOLN 40 units SQ QHS INSULIN GLARGINE 92753722956 Active Tressa Danica Kat MICARDIS 80 MG TABS 1 po daily TELMISARTAN 96312227829 Active Tressa Danica Kat NEXIUM 40 MG CPDR 1 PO daily ESOMEPRAZOLE MAGNESIUM 95687812134 Active Tressa Dnaica Kat SINEMET 25-100 MG TABS 1 po TID CARBIDOPA-LEVODOPA 97340800097 Active Tressaino Mishra Kat MIRALAX POWD 1 scoop in 4oz of water PO BID POLYETHYLENE GLYCOL 3350 09001919479 Active Susanna Bruno ZOCOR 20 MG TAB 1 PO daily SIMVASTATIN 16679642174 Active Tressa Danica Kat DAGOBERTO 180 MG TABS 1 PO QD FEXOFENADINE HCL Active Tressa Danica Stephens OXYCODONE HCL 10 MG TABS 2 PO Q4hrs prn OXYCODONE HCL 02639984595 Active Tressaino Stephens OXYCONTIN 20 MG [id number] 1 PO Q 12hrs scheduled OXYCODONE HCL Active Tressaino Stephens K-DUR 20 MEQ TAB CR 1 PO daily POTASSIUM CHLORIDE Active Tressaino Stephens LASIX 20 MG TAB 1 PO BID prn swelling FUROSEMIDE 23434021386 Active Tressa Danica Stepehns XANAX 0.25 MG TABS 1-2 PO Q6hrs prn ALPRAZOLAM 44350681011 Active Tressaino Stephens NEURONTIN 300 MG CAP 1-2 PO BID GABAPENTIN 46124011133 Active Tressa Danica Stephens SYNTHROID 150 MCG TABS 1 PO Daily LEVOTHYROXINE SODIUM 15161993054 Active Tressa Stephens HYDROXYZINE HCL 25 MG TABS 1 PO TID prn HYDROXYZINE HCL 89814734359 Active Tressa Stephens Immunizations Vaccine Administration Date [...] Value Unit Range Description blood pressure, diastolic 94 mm[Hg] BP gallardo blood pressure, systolic 122 mm[Hg] BP sys pulse rate E&M 72 /min Heart rate respiratory rate E&M 12 /min Resp rate temperature E&M 97.9 [degF] Body temperature weight E&M 210 [lb_av] Weight Measured blood pressure, diastolic 80 [...] albumin, serum 3.5 g/dL Clinical Lists Update: CMP,FLP,HgA1c - Chemistry Estimated Glomerular Filtration Rate (calc) >60 mL/min/1.73m2 glucose, plasma fasting 197 mg/dL albumin, serum 3.2 g/dL alkaline phosphatase, serum 101 U/L urea nitrogen, blood 15 mg/dL calcium, serum 8.6 mg/dL chloride, serum 101 mmol/L cholesterol, serum 112 mg/dL carbon dioxide, venous blood 30 mmol/L creatinine, serum 0.67 mg/dL HDL cholesterol, serum 68 mg/dL hemoglobin A1C, blood, as % of total hemoglobin 8.1 % LDL cholesterol, serum 15 mg/dL potassium, serum 4.1 mmol/L protein, total, serum 6.2 g/dL aspartate aminotransferase (SGOT), serum 41 U/L alanine aminotransferase (SGPT), serum 17 U/L bilirubin, serum, total 0.3 mg/dL triglyceride, serum, fasting 144 mg/dL sodium, serum 137 mmol/L Clinical Lists Update: CMP,FLP,HgA1c,TSH,Free T4,Microalbumin - Chemistry thyroid stimulating hormone, serum 3.62 u[iU]/mL glucose, plasma fasting 257 mg/dL anion gap, serum 7 sodium, serum 137 mmol/L urea nitrogen, blood 13 mg/dL hemoglobin A1C, blood, as % of total hemoglobin 9.4 % chloride, serum 101 mmol/L HDL cholesterol, serum 62 mg/dL LDL cholesterol, serum 33 mg/dL cholesterol, serum 137 mg/dL potassium, serum 4.0 mmol/L alkaline phosphatase, serum 76 U/L protein, total, serum 6.4 g/dL carbon dioxide, venous blood 29 mmol/L aspartate aminotransferase (SGOT), serum 22 U/L calcium, serum 8.7 mg/dL alanine aminotransferase (SGPT), serum 17 U/L creatinine, serum 0.83 mg/dL bilirubin, serum, total 0.3 mg/dL albumin, serum 3.3 g/dL triglyceride, serum, fasting 211 mg/dL thyroxine, serum, free 1.11 ng/dL Clinical Lists Update: CMP,FLP,HgA1c,TSH,Free T4,Microalbumin - Urinalysis microalbumin, urine, semiquantitative 1.5 mg/dL Clinical Lists Update: HgA1c - Chemistry hemoglobin A1C, blood, as % of total hemoglobin 8.6 % Clinical Lists Update: TSH,.Free T4 - Chemistry thyroxine, serum, free 0.84 ng/dL thyroid stimulating hormone, serum 4.36 u[iU]/mL
--- OUTSIDE RECORDS SUMMARY | 2018-04-13 07:14 | XMS REPORT | Continuity of Care Document ---
Author Author Via [facility] Organization Via [facility] Address Unknown Phone Unavailable Allergies Active Description Code Type Severity Reaction Onset Reported/Identified Relationship to Patient Clinical Status Yes No Known Drug Allergies [id number] Drug Allergy Unknown N/A 10/07/2008 Medications There is no data. 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 06/19/1199 CODY STALLWORTH MD Ot I89.0 LYMPHEDEMA, NOT ELSEWHERE CLASSIFIED 06/19/1199 CODY STALLWORTH MD Ot L10.0 PEMPHIGUS VULGARIS 06/19/1199 CODY STALLWORTH MD Ot L97.211 NON-PRS CHRONIC ULCER OF RIGHT [place] 07/30/2011 Ot 244.9 HYPOTHYROIDISM NOS 07/30/2011 Ot 250.02 DIAB CORAL WO COMPL, TYPE II OR UNSPEC TY 07/30/2011 Ot 272.4 HYPERLIPIDEMIA NEC/NOS 07/30/2011 Ot 276.51 DEHYDRATION 07/30/2011 Ot 300.00 ANXIETY STATE NOS 07/30/2011 Ot 338.29 OTHER CHRONIC PAIN 07/30/2011 Ot 401.9 HYPERTENSION NOS 07/30/2011 Ot 725 POLYMYALGIA RHEUMATICA 07/30/2011 Ot V07.4 HORMONE REPLACEMENT THERAPY (POSTMENOPAU 07/30/2011 Ot V58.67 LONG-TERM ( 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 07/30/2011 Ot V58.69 OTH MED,LT, CURRENT USE 07/20/2012 Ot 783.0 ANOREXIA 07/20/2012 Ot 787.91 DIARRHEA 07/20/2012 Ot 789.06 ABDOMINAL PAIN, EPIGASTRIC 08/24/2012 Ot 211.1 BENIGN NEOPLASM STOMACH 08/24/2012 Ot 553.3 DIAPHRAGMATIC HERNIA 08/24/2012 Ot 562.10 DIVERTICULOSIS COLON (W/O MENT OF HEMORR 08/24/2012 Ot 569.89 INTESTINAL DISORDERS NEC 08/24/2012 Ot V76.51 SCREEN MAL NEOP-COLON 09/17/2012 Ot 211.3 BENIGN NEOPLASM LG BOWEL 09/17/2012 Ot 244.9 HYPOTHYROIDISM NOS 09/17/2012 Ot 250.00 DIAB CORAL WO COMPL, TYPE II OR UNSPEC TY 09/17/2012 Ot 300.00 ANXIETY STATE NOS 09/17/2012 Ot 333.94 RESTLESS LEGS SYNDROME 09/17/2012 Ot 356.9 IDIO PERIPH NEURPTHY NOS 09/17/2012 Ot 401.9 HYPERTENSION NOS 09/17/2012 Ot 414.01 CORONARY ATHEROSCLEROSIS OF [place] CORON 09/17/2012 Ot 457.1 OTHER LYMPHEDEMA 09/17/2012 Ot 530.81 ESOPHAGEAL REFLUX 09/17/2012 Ot 568.0 PERITONEAL [id number]/INF 09/17/2012 Ot 715.90 OSTEOARTHROS NOS-UNSPEC 09/17/2012 Ot 725 POLYMYALGIA RHEUMATICA 09/17/2012 Ot 780.57 UNSPECIFIED SLEEP APNEA 09/17/2012 Ot 996.59 MECH. COMPLIC, OTH. IMPLANT INTERNAL D 09/17/2012 Ot V04.81 ND FOR PROPHYLACTIC VACCIN AND INOCULATI 09/17/2012 Ot V12.3 HX-BLOOD DISEASES 09/17/2012 Ot V13.3 HX-SKIN/ SUBCUTAN TIS DIS 09/17/2012 Ot V58.67 LONG-TERM ( 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 09/17/2012 Ot V64.41 LAPAROSCOPIC SURGICAL PROC CONVERTED TO 06/28/2013 JOY SORENSEN DO Ot 244.9 HYPOTHYROIDISM NOS 06/28/2013 JOY SORENSEN DO Ot 250.02 DIAB CORAL WO COMPL, TYPE II OR UNSPEC TY 06/28/2013 JOY SORENSEN DO Ot 272.0 PURE HYPERCHOLESTEROLEM 06/28/2013 EDU NEWELL JOY Ot 272.4 HYPERLIPIDEMIA NEC/NOS 06/28/2013 EDU NEWELL JOY Ot 275.2 DIS MAGNESIUM METABOLISM 06/28/2013 EDU NEWELL JOY Ot 276.8 HYPOPOTASSEMIA 06/28/2013 HU SORENSEN DOI Ot 327.23 OBSTRUCTIVE SLEEP APNEA (ADULT) (PEDIATR 06/28/2013 EDU NEWELL JOY Ot 338.29 OTHER CHRONIC PAIN 06/28/2013 JOY SORENSEN DO Ot 356.9 IDIO PERIPH NEURPTHY NOS 06/28/2013 SORENSEN DO, JOY Ot 401.9 HYPERTENSION NOS 06/28/2013 SORENSEN DO, JOY Ot 427.89 CARDIAC DYSRHYTHMIAS NEC 06/28/2013 SORENSEN DO, JOY Ot 530.81 ESOPHAGEAL REFLUX 06/28/2013 SORENSEN DO, JOY Ot 682.2 CELLULITIS OF TRUNK 06/28/2013 SORENSEN DO, JOY Ot 694.5 PEMPHIGOID 06/28/2013 SORENSEN DO, JOY Ot 715.90 OSTEOARTHROS NOS-UNSPEC 06/28/2013 SORENSEN DO, JOY Ot 724.5 BACKACHE NOS 06/28/2013 SORENSEN DO, JOY Ot 942.03 BURN NOS ABDOMINAL WALL 06/28/2013 SORENSEN DO, JOY Ot E000.8 OTHER EXTERNAL CAUSE STATUS 06/28/2013 SORENSEN DO, JOY Ot E849.0 ACCIDENT IN HOME 06/28/2013 SORENSEN DO JOY Ot E924.8 HOT SUBSTANCE ACCID NEC 12/22/2013 SORENSEN DO, JOY Ot 250.00 DIAB CORAL WO COMPL, TYPE II OR UNSPEC TY 06/03/2014 CECILY JAY VALIDATION ANALYST Ot 250.00 06/03/2014 CECILY JAY VALIDATION ANALYST Ot 285.9 06/03/2014 CECILY JAY VALIDATION ANALYST Ot 287.31 06/03/2014 CECILY JAY VALIDATION ANALYST Ot V12.72 06/03/2014 CECILY JAY VALIDATION ANALYST Ot V58.67 06/03/2014 CECILY JAY VALIDATION ANALYST Ot V58.69 06/09/2014 CECILY JAY VALIDATION ANALYST Ot 250.00 06/09/2014 CECILY JAY VALIDATION ANALYST Ot 285.9 06/09/2014 CECILY JAY VALIDATION ANALYST Ot 287.31 06/09/2014 CECILY JAY VALIDATION ANALYST Ot V12.72 06/09/2014 CECILY JAY VALIDATION ANALYST Ot V58.67 06/09/2014 CECILY JAY VALIDATION ANALYST Ot V58.69 07/07/2014 EDU NEWELL JOY Ot 789.00 07/11/2014 SORENSEN DO JOY Ot 789.00 05/03/2015 SORENSEN DO JOY Ot V76.12 06/12/2015 DEVANTE WHELAN Ot D64.9 06/12/2015 DEVANTE WHELAN N Ot D69.3 06/12/2015 TIPDEVANTE ALVAREZ N Ot E11.9 06/12/2015 DEVANTE WHELAN N Ot Z79.4 06/12/2015 DEVANTE WHELAN N Ot Z79.899 06/14/2015 DEVANTE WHELAN N Ot D64.9 06/14/2015 TIPDEVANTE ALVAREZ N Ot D69.3 06/14/2015 TIPDEVANTE ALVAREZ N Ot E11.9 06/14/2015 TIPDEVANTE ALVAREZ N Ot Z79.4 06/14/2015 DEVANTE WHELAN N Ot Z79.899 11/19/2015 JOY SORENSEN DO Ot D69.3 IMMUNE THROMBOCYTOPENIC PURPURA 11/19/2015 JOY SORENSEN DO Ot E03.9 HYPOTHYROIDISM, UNSPECIFIED 11/19/2015 HU SORENSEN DOI Ot E11.9 TYPE 2 DIABETES MELLITUS WITHOUT COMPLIC 11/19/2015 HU SORENSEN DOI Ot E66.9 OBESITY, UNSPECIFIED 11/19/2015 HU SORENSEN DOI Ot E78.0 PURE HYPERCHOLESTEROLEMIA 11/19/2015 HU SORENSEN DOI Ot F32.9 MAJOR DEPRESSIVE DISORDER, SINGLE EPISOD 11/19/2015 HU SORENSEN DOI Ot F41.9 ANXIETY DISORDER, UNSPECIFIED 11/19/2015 HU SORENSEN DOI Ot G62.9 POLYNEUROPATHY, UNSPECIFIED 11/19/2015 EDU NEWELL JOY Ot I10 ESSENTIAL (PRIMARY) HYPERTENSION 11/19/2015 HU SORENSEN DOI Ot I89.0 LYMPHEDEMA, NOT ELSEWHERE CLASSIFIED 11/19/2015 HU SOERNSEN DOI Ot K21.9 GASTRO-ESOPHAGEAL REFLUX DISEASE WITHOUT 11/19/2015 EDU NEWELL JOY Ot K58.9 IRRITABLE BOWEL SYNDROME WITHOUT DIARRHE 11/19/2015 HU SORENSEN DOI Ot M19.071 PRIMARY OSTEOARTHRITIS, RIGHT ANKLE AND 11/19/2015 HU SORENSEN DOI Ot M19.072 PRIMARY OSTEOARTHRITIS, LEFT ANKLE AND F 11/19/2015 HU SORENSEN DOI Ot N32.81 OVERACTIVE BLADDER 11/19/2015 HU SORENSEN DOI Ot 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 11/20/2015 OJY SORENSEN DO Ot D69.3 IMMUNE THROMBOCYTOPENIC PURPURA 11/20/2015 HU SORENSEN DOI Ot E03.9 HYPOTHYROIDISM, UNSPECIFIED 11/20/2015 JOY SORENSEN DO Ot E11.9 TYPE 2 DIABETES MELLITUS WITHOUT COMPLIC 11/20/2015 JOY SORENSEN DO Ot E66.9 OBESITY, UNSPECIFIED 11/20/2015 HU SORENSEN DOI Ot E78.0 PURE HYPERCHOLESTEROLEMIA 11/20/2015 HU SORENSEN DOI Ot E78.5 HYPERLIPIDEMIA, UNSPECIFIED 11/20/2015 JOY SORENSEN DO Ot F32.9 MAJOR DEPRESSIVE DISORDER, SINGLE EPISOD 11/20/2015 HU SORENSEN DOI Ot F41.9 ANXIETY DISORDER, UNSPECIFIED 11/20/2015 HU SORENSEN DOI Ot G47.33 OBSTRUCTIVE SLEEP APNEA (ADULT) (PEDIATR 11/20/2015 HU SORENSEN DOI Ot G62.9 POLYNEUROPATHY, UNSPECIFIED 11/20/2015 JOY SORENSEN DO Ot I10 ESSENTIAL (PRIMARY) HYPERTENSION 11/20/2015 JOY SORENSEN DO Ot I89.0 LYMPHEDEMA, NOT ELSEWHERE CLASSIFIED 11/20/2015 JOY SORENSEN DO Ot K21.9 GASTRO-ESOPHAGEAL REFLUX DISEASE WITHOUT 11/20/2015 JOY SORENSEN DO Ot 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 11/20/2015 JOY SORENSEN DO Ot K58.9 IRRITABLE BOWEL SYNDROME WITHOUT DIARRHE 11/20/2015 JOY SORENSEN DO Ot L12.0 BULLOUS PEMPHIGOID 11/20/2015 JOY SORENSEN DO Ot M19.071 PRIMARY OSTEOARTHRITIS, RIGHT ANKLE AND 11/20/2015 JOY SORENSEN DO Ot M19.072 PRIMARY OSTEOARTHRITIS, LEFT ANKLE AND F 11/20/2015 JOY SORENSEN DO Ot N32.81 OVERACTIVE BLADDER 11/20/2015 JOY SORENSEN DO Ot 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 11/20/2015 Ot 250.00 DIAB CORAL WO COMPL, TYPE II OR UNSPEC TY 11/20/2015 Ot 287.31 IMMUNE THROMBOCYTOPENIC PURPURA 11/20/2015 Ot 401.9 HYPERTENSION NOS 11/20/2015 Ot 457.1 OTHER LYMPHEDEMA 11/20/2015 Ot 287.31 IMMUNE THROMBOCYTOPENIC PURPURA 11/20/2015 Ot V43.65 KNEE JOINT REPLACEMENT STATUS 11/20/2015 Ot V58.67 LONG-TERM ( 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 11/20/2015 Ot V58.69 OTH MED,LT, CURRENT USE 11/20/2015 Ot 287.31 IMMUNE THROMBOCYTOPENIC PURPURA 11/20/2015 Ot V43.65 KNEE JOINT REPLACEMENT STATUS 11/20/2015 Ot V58.69 OTH MED,LT, CURRENT USE 11/20/2015 Ot V76.12 OTH SCREEN MAMMO-MALIGN NEOPLASM OF [place] 11/20/2015 Ot 250.00 DIAB CORAL WO COMPL, TYPE II OR UNSPEC TY 11/20/2015 Ot 287.31 IMMUNE THROMBOCYTOPENIC PURPURA 11/20/2015 Ot 585.3 CHRONIC KIDNEY DISEASE, STAGE III (MODER 11/20/2015 Ot 715.90 OSTEOARTHROS NOS-UNSPEC 11/20/2015 Ot V07.4 HORMONE REPLACEMENT THERAPY (POSTMENOPAU 11/20/2015 Ot V12.3 HX-BLOOD DISEASES 11/20/2015 Ot V58.67 LONG-TERM ( 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 11/20/2015 Ot V58.69 OTH MED,LT, CURRENT USE 11/20/2015 Ot V76.12 OTH SCREEN MAMMO-MALIGN NEOPLASM OF [place] 11/20/2015 Ot V72.84 EXAM PRE- OPERATIVE NOS 11/20/2015 Ot 569.9 INTESTINAL DISORDER NOS 11/20/2015 Ot V72.63 PRE- PROCEDURAL LABORATORY EXAMINATION 11/20/2015 Ot V74.8 SCREEN- BACTERIAL DIS NEC 11/20/2015 Ot 786.09 RESPIRATORY ABNORM NEC 11/20/2015 Ot 397.0 TRICUSPID VALVE DISEASE 11/20/2015 Ot 416.8 CHR PULMON HEART DIS NEC 11/20/2015 Ot 429.3 CARDIOMEGALY 11/20/2015 Ot 786.09 RESPIRATORY ABNORM NEC 11/20/2015 DEVANTE WHELAN Ot 250.00 DIAB CORAL WO COMPL, TYPE II OR UNSPEC TY 11/20/2015 DEVANTE WHELAN Ot 285.9 ANEMIA NOS 11/20/2015 DEVANTE WHELAN Ot 287.31 IMMUNE THROMBOCYTOPENIC PURPURA 11/20/2015 DEVANTE WHELAN Ot V12.72 PERSONAL HISTORY OF COLONIC POLYPS 11/20/2015 DEVANTE WHELAN Ot V58.67 LONG-TERM (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 11/20/2015 DEVANTE WHELAN Ot V58.69 OTH MED,LT,CURRENT USE 11/20/2015 JOY SORENSEN DO Ot V76.12 OTH SCREEN MAMMO-MALIGN NEOPLASM OF [place] 11/20/2015 Ot 250.00 DIAB CORAL WO COMPL, TYPE II OR UNSPEC TY 11/20/2015 SORENSENLUISA NEWELL JOY Ot 250.00 DIAB CORAL WO COMPL, TYPE II OR UNSPEC TY 11/20/2015 HU SORENSEN DOI Ot 287.31 IMMUNE THROMBOCYTOPENIC PURPURA 11/20/2015 HU SORENSEN DOI Ot 782.1 NONSPECIF SKIN ERUPT NEC 11/20/2015 JOY SORENSEN DO Ot V58.69 OTH MED,LT,CURRENT USE 11/20/2015 JOY SORENSEN DO Ot V58.83 ENCOUNTER FOR THERAPEUTIC DRUG MONITORIN 11/20/2015 CECILY JAY VALIDATION ANALYST Ot 250.00 DIAB CORAL WO COMPL, TYPE II OR UNSPEC TY 11/20/2015 CECILY JAY VALIDATION ANALYST Ot 285.9 ANEMIA NOS 11/20/2015 CECILY JAY VALIDATION ANALYST Ot 287.31 IMMUNE THROMBOCYTOPENIC PURPURA 11/20/2015 CECILY JAY VALIDATION ANALYST Ot V12.72 PERSONAL HISTORY OF COLONIC POLYPS 11/20/2015 CECILY JAY VALIDATION ANALYST Ot V58.67 LONG-TERM (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 11/20/2015 CECILY JAY VALIDATION ANALYST Ot V58.69 OTH MED,LT,CURRENT USE 11/20/2015 SORENSENJOY MORAN DO Ot 789.00 ABDOMINAL PAIN, UNSPECIFIED SITE 11/20/2015 JOY SORENSEN DO Ot V76.12 OTH SCREEN MAMMO-MALIGN NEOPLASM OF [place] 11/20/2015 DEVANTE WHELAN Ot D64.9 ANEMIA, UNSPECIFIED 11/20/2015 DEVANTE WHELAN Ot D69.3 IMMUNE THROMBOCYTOPENIC PURPURA 11/20/2015 DEVANTE WHELAN Ot E11.9 TYPE 2 DIABETES MELLITUS WITHOUT COMPLIC 11/20/2015 DEVANTE WHELAN Ot Z79.4 SHELTER (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 11/20/2015 DEVANTE WHELAN Ot Z79.899 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 11/20/2015 SORENSEN DO, JOY Ot D69.3 IMMUNE THROMBOCYTOPENIC PURPURA 11/20/2015 SORENSEN DO, JOY Ot E03.9 HYPOTHYROIDISM, UNSPECIFIED 11/20/2015 SORENSEN DO JOY Ot E11.9 TYPE 2 DIABETES MELLITUS WITHOUT COMPLIC 11/20/2015 SORENSEN DO JOY Ot E66.9 OBESITY, UNSPECIFIED 11/20/2015 SORENSEN DO, JOY Ot E78.0 PURE HYPERCHOLESTEROLEMIA 11/20/2015 SORENSEN DO JOY Ot F32.9 MAJOR DEPRESSIVE DISORDER, SINGLE EPISOD 11/20/2015 SORENSEN DO JOY Ot F41.9 ANXIETY DISORDER, UNSPECIFIED 11/20/2015 SORENSEN DO, JOY Ot G62.9 POLYNEUROPATHY, UNSPECIFIED 11/20/2015 SORENSEN DO JOY Ot I10 ESSENTIAL (PRIMARY) HYPERTENSION 11/20/2015 EDU DO JOY Ot I89.0 LYMPHEDEMA, NOT ELSEWHERE CLASSIFIED 11/20/2015 EDU DO JOY Ot K21.9 GASTRO-ESOPHAGEAL REFLUX DISEASE WITHOUT 11/20/2015 SORENSEN DO JOY Ot K58.9 IRRITABLE BOWEL SYNDROME WITHOUT DIARRHE 11/20/2015 SORENSEN DO JOY Ot M19.071 PRIMARY OSTEOARTHRITIS, RIGHT ANKLE AND 11/20/2015 SORENSEN DO JOY Ot M19.072 PRIMARY OSTEOARTHRITIS, LEFT ANKLE AND F 11/20/2015 EDU NEWELL JOY Ot N32.81 OVERACTIVE BLADDER 11/20/2015 EDU NEWELL JOY Ot Z79.4 SHELTER (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 11/20/2015 EDU NEWELL JOY Ot D69.3 IMMUNE THROMBOCYTOPENIC PURPURA 11/20/2015 EDU DO JOY Ot E03.9 HYPOTHYROIDISM, UNSPECIFIED 11/20/2015 SORENSEN DO JOY Ot E11.9 TYPE 2 DIABETES MELLITUS WITHOUT COMPLIC 11/20/2015 SORENSEN DO JOY Ot E66.9 OBESITY, UNSPECIFIED 11/20/2015 SORENSEN DO JOY Ot E78.0 PURE HYPERCHOLESTEROLEMIA 11/20/2015 SORENSEN DO JOY Ot F32.9 MAJOR DEPRESSIVE DISORDER, SINGLE EPISOD 11/20/2015 SORENSEN DO JOY Ot F41.9 ANXIETY DISORDER, UNSPECIFIED 11/20/2015 SORENSEN DO JOY Ot G62.9 POLYNEUROPATHY, UNSPECIFIED 11/20/2015 SORENSENJOY MORAN DO Ot I10 ESSENTIAL (PRIMARY) HYPERTENSION 11/20/2015 SORENSENLUISA NEWELL JOY Ot I89.0 LYMPHEDEMA, NOT ELSEWHERE CLASSIFIED 11/20/2015 SORENSENJOY MORAN DO Ot K21.9 GASTRO-ESOPHAGEAL REFLUX DISEASE WITHOUT 11/20/2015 SORENSENLUISA NEWELL JOY Ot K58.9 IRRITABLE BOWEL SYNDROME WITHOUT DIARRHE 11/20/2015 SORENSEN DO JOY Ot M19.071 PRIMARY OSTEOARTHRITIS, RIGHT ANKLE AND 11/20/2015 SORENSEN DO JOY Ot M19.072 PRIMARY OSTEOARTHRITIS, LEFT ANKLE AND F 11/20/2015 SORENSENJOY MORAN DO Ot N32.81 OVERACTIVE BLADDER 11/20/2015 JOY SORENSEN DO Ot Z79.4 SHELTER (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 11/22/2015 BASIM ZHU, CODY Jewell Ot D69.3 IMMUNE THROMBOCYTOPENIC PURPURA 11/22/2015 BASIM ZHU, CODY Jewell Ot I87.321 CHRONIC VENOUS HYPERTENSION W INFLAMMATI 11/22/2015 BASIM ZHU, CODY Jewell Ot L97.211 NON-PRS CHRONIC ULCER OF RIGHT [place] 12/14/2015 Ot D64.9 ANEMIA, UNSPECIFIED 12/14/2015 Ot D69.3 IMMUNE THROMBOCYTOPENIC PURPURA 12/14/2015 Ot E11.9 TYPE 2 DIABETES MELLITUS WITHOUT COMPLIC 12/14/2015 Ot Z79.4 SHELTER ( 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 12/14/2015 Ot Z79.899 OTHER SHELTER (CURRENT) DRUG THERAPY 01/08/2016 Ot D64.9 ANEMIA, UNSPECIFIED 01/08/2016 Ot D69.3 IMMUNE THROMBOCYTOPENIC PURPURA 01/08/2016 Ot E11.9 TYPE 2 DIABETES MELLITUS WITHOUT COMPLIC 01/08/2016 Ot Z79.4 SHELTER ( 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 01/08/2016 Ot Z79.899 OTHER SHELTER (CURRENT) DRUG THERAPY 01/16/2016 Ot D64.9 ANEMIA, UNSPECIFIED 01/16/2016 Ot D69.3 IMMUNE THROMBOCYTOPENIC PURPURA 01/16/2016 Ot E11.9 TYPE 2 DIABETES MELLITUS WITHOUT COMPLIC 01/16/2016 Ot 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 ASSISTANT ( 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 01/16/2016 Ot Z79.899 OTHER SHELTER (CURRENT) DRUG THERAPY 02/06/2016 CODY STALLWORTH MD Ot I87.331 CHRONIC VENOUS HTN W ULCER AND INFLAMMAT 02/06/2016 CODY STALLWORTH MD Ot I89.0 LYMPHEDEMA, NOT ELSEWHERE CLASSIFIED 02/06/2016 CODY STALLWORTH MD Ot L10.0 PEMPHIGUS VULGARIS 02/06/2016 CODY STALLWORTH MD Ot L97.211 NON-PRS CHRONIC ULCER OF RIGHT [place] 03/11/2016 CECILY JAY VALIDATION ANALYST Ot D64.9 ANEMIA, UNSPECIFIED 03/11/2016 CECILY JAY VALIDATION ANALYST Ot D69.3 IMMUNE THROMBOCYTOPENIC PURPURA 03/11/2016 CECILY JAY VALIDATION ANALYST Ot E11.9 TYPE 2 DIABETES MELLITUS WITHOUT COMPLIC 03/11/2016 CECILY JAY VALIDATION ANALYST Ot Z79.4 SHELTER (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 03/11/2016 CECILY JAY VALIDATION ANALYST Ot Z79.899 OTHER SHELTER (CURRENT) DRUG THERAPY 03/13/2016 CECILY JAY VALIDATION ANALYST Ot D64.9 ANEMIA, UNSPECIFIED 03/13/2016 CECILY JAY VALIDATION ANALYST Ot D69.3 IMMUNE THROMBOCYTOPENIC PURPURA 03/13/2016 CECILY JAY VALIDATION ANALYST Ot E11.9 TYPE 2 DIABETES MELLITUS WITHOUT COMPLIC 03/13/2016 CECILY JAY VALIDATION ANALYST Ot 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 03/13/2016 CECILY JAY VALIDATION ANALYST Ot Z79.899 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 07/31/2016 CODY STALLWORTH MD Ot D69.3 IMMUNE THROMBOCYTOPENIC PURPURA 07/31/2016 CODY STALLWORTH MD Ot L12.0 BULLOUS PEMPHIGOID 07/31/2016 CODY STALLWORTH MD Ot L97.222 NON-PRESSURE CHRONIC ULCER OF LEFT CALF 08/07/2016 Ot 287.31 IMMUNE THROMBOCYTOPENIC PURPURA 08/07/2016 Ot V43.65 KNEE JOINT REPLACEMENT STATUS 08/07/2016 Ot V58.69 OTH MED,LT, CURRENT USE 08/07/2016 Ot V76.12 OTH SCREEN MAMMO-MALIGN NEOPLASM OF [place] 08/07/2016 Ot 250.00 DIAB CORAL WO COMPL, TYPE II OR UNSPEC TY 08/07/2016 Ot 287.31 IMMUNE THROMBOCYTOPENIC PURPURA 08/07/2016 Ot 585.3 CHRONIC KIDNEY DISEASE, STAGE III (MODER 08/07/2016 Ot 715.90 OSTEOARTHROS NOS-UNSPEC 08/07/2016 Ot V07.4 HORMONE REPLACEMENT THERAPY (POSTMENOPAU 08/07/2016 Ot V12.3 HX-BLOOD DISEASES 08/07/2016 Ot V58.67 LONG-TERM ( 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 08/07/2016 Ot V58.69 OTH MED,LT, CURRENT USE 08/07/2016 Ot V76.12 OTH SCREEN MAMMO-MALIGN NEOPLASM OF [place] 08/07/2016 Ot V72.84 EXAM PRE- OPERATIVE NOS 08/07/2016 Ot 569.9 INTESTINAL DISORDER NOS 08/07/2016 Ot V72.63 PRE- PROCEDURAL LABORATORY EXAMINATION 08/07/2016 Ot V74.8 SCREEN- BACTERIAL DIS NEC 08/07/2016 Ot 786.09 RESPIRATORY ABNORM NEC 08/07/2016 Ot 397.0 TRICUSPID VALVE DISEASE 08/07/2016 Ot 416.8 CHR PULMON HEART DIS NEC 08/07/2016 Ot 429.3 CARDIOMEGALY 08/07/2016 Ot 786.09 RESPIRATORY ABNORM NEC 08/07/2016 DEVANTE WHELAN Ot 250.00 DIAB CORAL WO COMPL, TYPE II OR UNSPEC TY 08/07/2016 DEVANTE WHELAN Ot 285.9 ANEMIA NOS 08/07/2016 DEVANTE WHELAN Ot 287.31 IMMUNE THROMBOCYTOPENIC PURPURA 08/07/2016 DEVANTE WHELAN Ot V12.72 PERSONAL HISTORY OF COLONIC POLYPS 08/07/2016 DEVANTE WHELAN Ot V58.67 LONG-TERM (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 08/07/2016 DEVANTE WHELAN Ot V58.69 OTH MED,LT,CURRENT USE 08/07/2016 JOY SORENSEN DO Ot V76.12 OTH SCREEN MAMMO-MALIGN NEOPLASM OF [place] 08/07/2016 Ot 250.00 DIAB CORAL WO COMPL, TYPE II OR UNSPEC TY 08/07/2016 SORENSENLUISA NEWELL JOY Ot 250.00 DIAB CORAL WO COMPL, TYPE II OR UNSPEC TY 08/07/2016 EDU NEWELL JOY Ot 287.31 IMMUNE THROMBOCYTOPENIC PURPURA 08/07/2016 JOY SORENSEN DO Ot 782.1 NONSPECIF SKIN ERUPT NEC 08/07/2016 JOY SORENSEN DO Ot V58.69 OTH MED,LT,CURRENT USE 08/07/2016 JOY SORENSEN DO Ot V58.83 ENCOUNTER FOR THERAPEUTIC DRUG MONITORIN 08/07/2016 CECILY JAYP Ot 250.00 DIAB CORAL WO COMPL, TYPE II OR UNSPEC TY 08/07/2016 CECILY JAY VALIDATION ANALYST Ot 285.9 ANEMIA NOS 08/07/2016 CECILY JAYP Ot 287.31 IMMUNE THROMBOCYTOPENIC PURPURA 08/07/2016 CECILY JAY VALIDATION ANALYST Ot V12.72 PERSONAL HISTORY OF COLONIC POLYPS 08/07/2016 CECILY JAYP Ot V58.67 LONG-TERM (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 08/07/2016 CECILY JAY Ot V58.69 OTH MED,LT,CURRENT USE 08/07/2016 JYO SORENSEN DO Ot 789.00 ABDOMINAL PAIN, UNSPECIFIED SITE 08/07/2016 JOY SORENSEN DO Ot V76.12 OTH SCREEN MAMMO-MALIGN NEOPLASM OF [place] 08/07/2016 DEVANTE WHELAN Ot D64.9 ANEMIA, UNSPECIFIED 08/07/2016 DEVANTE WHELAN Ot D69.3 IMMUNE THROMBOCYTOPENIC PURPURA 08/07/2016 DEVANTE WHELAN Ot E11.9 TYPE 2 DIABETES MELLITUS WITHOUT COMPLIC 08/07/2016 DEVANTE WHELAN Ot 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 08/07/2016 DEVANTE WHELAN Ot Z79.899 OTHER SHELTER (CURRENT) DRUG THERAPY 08/07/2016 Ot D64.9 ANEMIA, UNSPECIFIED 08/07/2016 Ot D69.3 IMMUNE THROMBOCYTOPENIC PURPURA 08/07/2016 Ot E11.9 TYPE 2 DIABETES MELLITUS WITHOUT COMPLIC 08/07/2016 Ot 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 ASSISTANT ( 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 08/07/2016 Ot Z79.899 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 08/07/2016 CECILY JAY Ot D64.9 ANEMIA, UNSPECIFIED 08/07/2016 CECILY JAY Ot D69.3 IMMUNE THROMBOCYTOPENIC PURPURA 08/07/2016 CECILY JAY Ot E11.9 TYPE 2 DIABETES MELLITUS WITHOUT COMPLIC 08/07/2016 MISTY CECILY Conteh 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 Ot Z79.899 OTHER SHELTER (CURRENT) DRUG THERAPY 08/08/2016 JOY SORENSEN DO Ot K55.9 VASCULAR DISORDER OF INTESTINE, UNSPECIF 08/19/2016 Ot 287.31 IMMUNE THROMBOCYTOPENIC PURPURA 08/19/2016 Ot V43.65 KNEE JOINT REPLACEMENT STATUS 08/19/2016 Ot V58.69 OTH MED,LT, CURRENT USE 08/19/2016 Ot V76.12 OTH SCREEN MAMMO-MALIGN NEOPLASM OF [place] 08/19/2016 Ot 250.00 DIAB CORAL WO COMPL, TYPE II OR UNSPEC TY 08/19/2016 Ot 287.31 IMMUNE THROMBOCYTOPENIC PURPURA 08/19/2016 Ot 585.3 CHRONIC KIDNEY DISEASE, STAGE III (MODER 08/19/2016 Ot 715.90 OSTEOARTHROS NOS-UNSPEC 08/19/2016 Ot V07.4 HORMONE REPLACEMENT THERAPY (POSTMENOPAU 08/19/2016 Ot V12.3 HX-BLOOD DISEASES 08/19/2016 Ot V58.67 LONG-TERM ( 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 08/19/2016 Ot V58.69 OTH MED,LT, CURRENT USE 08/19/2016 Ot V76.12 OTH SCREEN MAMMO-MALIGN NEOPLASM OF [place] 08/19/2016 Ot V72.84 EXAM PRE- OPERATIVE NOS 08/19/2016 Ot 569.9 INTESTINAL DISORDER NOS 08/19/2016 Ot V72.63 PRE- PROCEDURAL LABORATORY EXAMINATION 08/19/2016 Ot V74.8 SCREEN- BACTERIAL DIS NEC 08/19/2016 Ot 786.09 RESPIRATORY ABNORM NEC 08/19/2016 Ot 397.0 TRICUSPID VALVE DISEASE 08/19/2016 Ot 416.8 CHR PULMON HEART DIS NEC 08/19/2016 Ot 429.3 CARDIOMEGALY 08/19/2016 Ot 786.09 RESPIRATORY ABNORM NEC 08/19/2016 DEVANTE WHELAN Ot 250.00 DIAB CORAL WO COMPL, TYPE II OR UNSPEC TY 08/19/2016 DEVANTE WHELAN Ot 285.9 ANEMIA NOS 08/19/2016 DEVANTE WHELAN Ot 287.31 IMMUNE THROMBOCYTOPENIC PURPURA 08/19/2016 DEVANTE WHELAN Ot V12.72 PERSONAL HISTORY OF COLONIC POLYPS 08/19/2016 DEVANTE WHELAN Ot V58.67 LONG-TERM (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 08/19/2016 DEVANTE WHELAN Ot V58.69 OTH MED,LT,CURRENT USE 08/19/2016 SORENSENJOY MORAN DO Ot V76.12 OTH SCREEN MAMMO-MALIGN NEOPLASM OF [place] 08/19/2016 Ot 250.00 DIAB CORAL WO COMPL, TYPE II OR UNSPEC TY 08/19/2016 SORENSENLUISA NEWELL JOY Ot 250.00 DIAB CORAL WO COMPL, TYPE II OR UNSPEC TY 08/19/2016 SORENSENLUISA NEWELL JOY Ot 287.31 IMMUNE THROMBOCYTOPENIC PURPURA 08/19/2016 EDU NEWELL JOY Ot 782.1 NONSPECIF SKIN ERUPT NEC 08/19/2016 JOY SORENSEN DO Ot V58.69 OTH MED,LT,CURRENT USE 08/19/2016 JOY SORENSEN DO Ot V58.83 ENCOUNTER FOR THERAPEUTIC DRUG MONITORIN 08/19/2016 CECILY JAY VALIDATION ANALYST Ot 250.00 DIAB CORAL WO COMPL, TYPE II OR UNSPEC TY 08/19/2016 CECILY JAY VALIDATION ANALYST Ot 285.9 ANEMIA NOS 08/19/2016 CECILY JAY VALIDATION ANALYST Ot 287.31 IMMUNE THROMBOCYTOPENIC PURPURA 08/19/2016 CECILY JAY VALIDATION ANALYST Ot V12.72 PERSONAL HISTORY OF COLONIC POLYPS 08/19/2016 CECILY JAY VALIDATION ANALYST Ot V58.67 LONG-TERM (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 08/19/2016 CECILY JAY VALIDATION ANALYST Ot V58.69 OTH MED,LT,CURRENT USE 08/19/2016 HU SORENSEN DOI Ot 789.00 ABDOMINAL PAIN, UNSPECIFIED SITE 08/19/2016 JOY SORENSEN DO Ot V76.12 OTH SCREEN MAMMO-MALIGN NEOPLASM OF [place] 08/19/2016 DEVANTE WHELAN Ot D64.9 ANEMIA, UNSPECIFIED 08/19/2016 DEVANTE WHELAN Ot D69.3 IMMUNE THROMBOCYTOPENIC PURPURA 08/19/2016 DEVANTE WHELAN Ot E11.9 TYPE 2 DIABETES MELLITUS WITHOUT COMPLIC 08/19/2016 DEVANTE WHELAN Ot Z79.4 SHELTER (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 08/19/2016 DEVANTE WHELAN Ot Z79.899 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 08/19/2016 Ot D64.9 ANEMIA, UNSPECIFIED 08/19/2016 Ot D69.3 IMMUNE THROMBOCYTOPENIC PURPURA 08/19/2016 Ot E11.9 TYPE 2 DIABETES MELLITUS WITHOUT COMPLIC 08/19/2016 Ot Z79.4 SHELTER ( 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 08/19/2016 Ot Z79.899 OTHER SHELTER (CURRENT) DRUG THERAPY 08/19/2016 CECILY JAY Ot D64.9 ANEMIA, UNSPECIFIED 08/19/2016 CECILY JAY VALIDATION ANALYST Ot D69.3 IMMUNE THROMBOCYTOPENIC PURPURA 08/19/2016 CECILY JAYP Ot E11.9 TYPE 2 DIABETES MELLITUS WITHOUT COMPLIC 08/19/2016 CECILY JAY VALIDATION ANALYST Ot Z79.4 SHELTER (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 08/19/2016 CECILY JAY VALIDATION ANALYST Ot Z79.899 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 08/19/2016 JOY SORENSEN DO Ot K55.9 VASCULAR DISORDER OF INTESTINE, UNSPECIF 08/19/2016 EDU NEWELL JOY Ot R10.84 GENERALIZED ABDOMINAL PAIN 08/19/2016 EDU NEWELL JOY Ot R10.84 GENERALIZED ABDOMINAL PAIN 08/20/2016 EDU NEWELL JOY Ot R10.84 GENERALIZED ABDOMINAL PAIN 08/20/2016 EDU NEWELL JOY Ot R10.84 GENERALIZED ABDOMINAL PAIN 08/29/2016 HU SORENSEN DOI Ot K55.9 VASCULAR DISORDER OF INTESTINE, UNSPECIF 09/04/2016 EDU NEWELL JOY Ot K55.9 VASCULAR DISORDER OF INTESTINE, UNSPECIF 09/11/2016 EDU NEWELL JOY Ot R10.84 GENERALIZED ABDOMINAL PAIN 09/18/2016 HU SORENSEN DOI Ot R10.84 GENERALIZED ABDOMINAL PAIN 01/15/2017 JOY SORENSEN DO Ot M19.071 PRIMARY OSTEOARTHRITIS, RIGHT ANKLE AND 01/15/2017 JOY SORENSEN DO Ot S92.321A DISP FX OF SECOND METATARSAL BONE, RIGHT 01/15/2017 JOY SORENSEN DO Ot S92.331A DISP FX OF THIRD METATARSAL BONE, RIGHT 01/15/2017 EDU NEWELL JOY Ot X58.XXXA EXPOSURE TO OTHER SPECIFIED FACTORS, INI 01/15/2017 SORENSEN DO, JOY Ot Y99.8 OTHER EXTERNAL CAUSE STATUS 02/06/2017 EDU DO JOY Ot M19.071 PRIMARY OSTEOARTHRITIS, RIGHT ANKLE AND 02/06/2017 EDU NEWELL JOY Ot S92.321A DISP FX OF SECOND METATARSAL BONE, RIGHT 02/06/2017 EDU DO JOY Ot S92.331A DISP FX OF THIRD METATARSAL BONE, RIGHT 02/06/2017 EDU DO JOY Ot X58.XXXA EXPOSURE TO OTHER SPECIFIED FACTORS, INI 02/06/2017 SORENSEN DO JOY Ot Y99.8 OTHER EXTERNAL CAUSE STATUS 02/07/2017 DEVANTE WHELAN Ot D64.9 ANEMIA, UNSPECIFIED 02/07/2017 DEVANTE WHELAN N Ot D69.3 IMMUNE THROMBOCYTOPENIC PURPURA 02/07/2017 DEVANTE WHELAN N Ot E11.9 TYPE 2 DIABETES MELLITUS WITHOUT COMPLIC 02/07/2017 DEVANTE WHELAN N Ot Z79.4 SHELTER (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 02/07/2017 DEVANTE WHELAN N Ot Z79.899 OTHER SHELTER (CURRENT) DRUG THERAPY 02/14/2017 EDU NEWELL JOY Ot M19.071 PRIMARY OSTEOARTHRITIS, RIGHT ANKLE AND 02/14/2017 EDU DO JOY Ot S92.321A DISP FX OF SECOND METATARSAL BONE, RIGHT 02/14/2017 EDU NEWELLHUI Ot S92.331A DISP FX OF THIRD METATARSAL BONE, RIGHT 02/14/2017 SORENSEN HU NEWELLI Ot X58.XXXA EXPOSURE TO OTHER SPECIFIED FACTORS, INI 02/14/2017 SORENSENLUISA NEWELL JOY Ot Y99.8 OTHER EXTERNAL CAUSE STATUS 02/27/2017 DEVANTE WHELAN N Ot D64.9 ANEMIA, UNSPECIFIED 02/27/2017 DEVANTE WHELAN N Ot D69.3 IMMUNE THROMBOCYTOPENIC PURPURA 02/27/2017 DEVANTE WHELAN N Ot E11.9 TYPE 2 DIABETES MELLITUS WITHOUT COMPLIC 02/27/2017 DEVANTE WHELAN N Ot 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 02/27/2017 DEVANTE WHELAN N Ot Z79.899 OTHER SHELTER (CURRENT) DRUG THERAPY 03/11/2017 DEVANTE WHELAN Kg Ot D64.9 ANEMIA, UNSPECIFIED 03/11/2017 DEVANTE WHELAN Kg Ot D69.3 IMMUNE THROMBOCYTOPENIC PURPURA 03/11/2017 DEVANTE WHELAN Kg Ot E11.9 TYPE 2 DIABETES MELLITUS WITHOUT COMPLIC 03/11/2017 DEVANTE WHELAN Kg Ot 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 03/11/2017 DEVANTE WHELAN Kg Ot Z79.899 OTHER SHELTER (CURRENT) DRUG THERAPY 10/09/2017 BASIM ZHU, CODY Jewell Ot L22 DIAPER DERMATITIS 10/09/2017 BASIM ZHU, CODY Jewell Ot L98.491 NON-PRS CHRONIC ULCER SKIN/ SITES LIMITE 10/09/2017 BASIM ZHU, CODY Jewell Ot L22 DIAPER DERMATITIS 10/09/2017 BASIM ZHU, CODY Jewell Ot L98.491 NON-PRS CHRONIC ULCER SKIN/ SITES LIMITE 11/06/2017 BASIM ZHU, CODY Jewell Ot L22 DIAPER DERMATITIS 11/06/2017 BASIM ZHU, CODY Jewell Ot L98.491 NON-PRS CHRONIC ULCER SKIN/ SITES LIMITE 11/07/2017 BASIM ZHU, CODY Jewell Ot L22 DIAPER DERMATITIS 11/07/2017 BASIM ZHU, CODY Jewell Ot L98.491 NON-PRS CHRONIC ULCER SKIN/ SITES LIMITE 11/12/2017 BASIM ZHU, CODY Jewell Ot L22 DIAPER DERMATITIS 11/12/2017 BASIM ZHU, CODY Jewell Ot L98.491 NON-PRS CHRONIC ULCER SKIN/ SITES LIMITE 02/16/2018 Ot 569.9 INTESTINAL DISORDER NOS 02/16/2018 Ot V72.63 PRE- PROCEDURAL LABORATORY EXAMINATION 02/16/2018 Ot V74.8 SCREEN- BACTERIAL DIS NEC 02/16/2018 Ot 786.09 RESPIRATORY ABNORM NEC 02/16/2018 Ot 397.0 TRICUSPID VALVE DISEASE 02/16/2018 Ot 416.8 CHR PULMON HEART DIS NEC 02/16/2018 Ot 429.3 CARDIOMEGALY 02/16/2018 Ot 786.09 RESPIRATORY ABNORM NEC 02/16/2018 TIP, DEVANTE Saul Ot 250.00 DIAB CORAL WO COMPL, TYPE II OR UNSPEC TY 02/16/2018 DEVANTE WHELAN Ot 285.9 ANEMIA NOS 02/16/2018 DEVANTE WHELAN Ot 287.31 IMMUNE THROMBOCYTOPENIC PURPURA 02/16/2018 TIPDEVANTE Ot V12.72 PERSONAL HISTORY OF COLONIC POLYPS 02/16/2018 DEVANTE WHELAN Ot V58.67 LONG-TERM (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 02/16/2018 DEVANTE WHELAN Ot V58.69 OTH MED,LT,CURRENT USE 02/16/2018 SORENSENLUISA NEWELL JOY Ot V76.12 OTH SCREEN MAMMO-MALIGN NEOPLASM OF BRENDEN 02/16/2018 Ot 250.00 DIAB CORAL WO COMPL, TYPE II OR UNSPEC TY 02/16/2018 SORENSEN DO JOY Ot 250.00 DIAB CORAL WO COMPL, TYPE II OR UNSPEC TY 02/16/2018 SORENSENLUISA NEWELL JOY Ot 287.31 IMMUNE THROMBOCYTOPENIC PURPURA 02/16/2018 SORENSENLUISA NEWELL JOY Ot 782.1 NONSPECIF SKIN ERUPT NEC 02/16/2018 EDU NEWELL JOY Ot V58.69 OTH MED,LT,CURRENT USE 02/16/2018 EDU NEWELL JOY Ot V58.83 ENCOUNTER FOR THERAPEUTIC DRUG MONITORIN 02/16/2018 CECILY JAY VALIDATION ANALYST Ot 250.00 DIAB CORAL WO COMPL, TYPE II OR UNSPEC TY 02/16/2018 CECILY JAY VALIDATION ANALYST Ot 285.9 ANEMIA NOS 02/16/2018 CECILY JAY VALIDATION ANALYST Ot 287.31 IMMUNE THROMBOCYTOPENIC PURPURA 02/16/2018 CECILY JAY VALIDATION ANALYST Ot V12.72 PERSONAL HISTORY OF COLONIC POLYPS 02/16/2018 CECILY JAY VALIDATION ANALYST Ot V58.67 LONG-TERM (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 02/16/2018 CECILY JAY VALIDATION ANALYST Ot V58.69 OTH MED,LT,CURRENT USE 02/16/2018 EDU NEWELL JOY Ot 789.00 ABDOMINAL PAIN, UNSPECIFIED SITE 02/16/2018 EDU NEWELL JOY Ot V76.12 OTH SCREEN MAMMO-MALIGN NEOPLASM OF BRENDEN 02/16/2018 DEVANTE WHELAN Ot D64.9 ANEMIA, UNSPECIFIED 02/16/2018 DEVANTE WHELAN Ot D69.3 IMMUNE THROMBOCYTOPENIC PURPURA 02/16/2018 DEVANTE WHELAN Ot E11.9 TYPE 2 DIABETES MELLITUS WITHOUT COMPLIC 02/16/2018 DEVANTE WHELAN Kg Ot Z79.4 SHELTER (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 02/16/2018 DEVANTE WHELAN Kg Ot Z79.899 OTHER SHELTER (CURRENT) DRUG THERAPY 02/16/2018 Ot D64.9 ANEMIA, UNSPECIFIED 02/16/2018 Ot D69.3 IMMUNE THROMBOCYTOPENIC PURPURA 02/16/2018 Ot E11.9 TYPE 2 DIABETES MELLITUS WITHOUT COMPLIC 02/16/2018 Ot Z79.4 SHELTER ( 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 02/16/2018 Ot Z79.899 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 02/16/2018 CECILY JAY VALIDATION ANALYST Ot D64.9 ANEMIA, UNSPECIFIED 02/16/2018 CECILY JAY VALIDATION ANALYST Ot D69.3 IMMUNE THROMBOCYTOPENIC PURPURA 02/16/2018 CECILY JAY VALIDATION ANALYST Ot E11.9 TYPE 2 DIABETES MELLITUS WITHOUT COMPLIC 02/16/2018 CECILY JAY VALIDATION ANALYST Ot 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8 OTHER EXTERNAL CAUSE STATUS 02/16/2018 TIP DEVANTE Saul Ot D64.9 ANEMIA, UNSPECIFIED 02/16/2018 DEVANTE WHELAN Kg Ot D69.3 IMMUNE THROMBOCYTOPENIC PURPURA 02/16/2018 TIP DEVANTE Saul Ot E11.9 TYPE 2 DIABETES MELLITUS WITHOUT COMPLIC 02/16/2018 TIP, DEVANTE Saul Ot Z79.4 SHELTER (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 02/16/2018 DEVANTE WHELAN Ot Z79.899 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 02/16/2018 BASIM ZHU, CODY Jewell Ot L22 DIAPER DERMATITIS 02/16/2018 BASIM ZHU, CODY Jewell Ot L98.491 NON-PRS CHRONIC ULCER SKIN/ SITES LIMITE 02/16/2018 BASIM ZHU, CODY Jewell Ot L22 DIAPER DERMATITIS 02/16/2018 BASIM ZHU, CODY Jewell Ot L98.491 NON-PRS CHRONIC ULCER SKIN/ SITES LIMITE 04/08/2018 DEVANTE WHELAN Ot D64.9 ANEMIA, UNSPECIFIED 04/08/2018 DEVANTE WHELAN Ot D69.3 IMMUNE THROMBOCYTOPENIC PURPURA 04/08/2018 DEVANTE WHELAN Ot E11.9 TYPE 2 DIABETES MELLITUS WITHOUT COMPLIC 04/08/2018 DEVANTE WHELAN Ot 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 04/08/2018 DEVANTE WHELAN Ot Z79.899 OTHER SHELTER (CURRENT) DRUG THERAPY 04/10/2018 EDU NEWELL JOY Ot E03.9 HYPOTHYROIDISM, UNSPECIFIED 04/10/2018 EDU NEWELL JOY Ot E11.65 TYPE 2 DIABETES MELLITUS WITH HYPERGLYCE 04/10/2018 EDU NEWELL JOY Ot E78.00 PURE HYPERCHOLESTEROLEMIA, UNSPECIFIED 04/10/2018 EDU NEWELL JOY Ot R10.84 GENERALIZED ABDOMINAL PAIN 04/10/2018 DEVANTE WHELAN Ot 250.00 DIAB CORAL WO COMPL, TYPE II OR UNSPEC TY 04/10/2018 DEVANTE WHELAN Ot 285.9 ANEMIA NOS 04/10/2018 DEVANTE WHELAN N Ot 287.31 IMMUNE THROMBOCYTOPENIC PURPURA 04/10/2018 DEVANTE WHELAN Ot V12.72 PERSONAL HISTORY OF COLONIC POLYPS 04/10/2018 DEVANTE WHELAN Ot V58.67 LONG-TERM (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 04/10/2018 DEVANTE WHELAN Ot V58.69 OTH MED,LT,CURRENT USE 04/10/2018 EDU NEWELL JOY Ot V76.12 OTH SCREEN MAMMO-MALIGN NEOPLASM OF BRENDEN 04/10/2018 Ot 250.00 DIAB CORAL WO COMPL, TYPE II OR UNSPEC TY 04/10/2018 EDU NEWELL JOY Ot 250.00 DIAB CORAL WO COMPL, TYPE II OR UNSPEC TY 04/10/2018 EDU NEWELL JOY Ot 287.31 IMMUNE THROMBOCYTOPENIC PURPURA 04/10/2018 EDU NEWELL JOY Ot 782.1 NONSPECIF SKIN ERUPT NEC 04/10/2018 EDU NEWELL JOY Ot V58.69 OTH MED,LT,CURRENT USE 04/10/2018 EDU NEWELL JOY Ot V58.83 ENCOUNTER FOR THERAPEUTIC DRUG MONITORIN 04/10/2018 CECILY JAY VALIDATION ANALYST Ot 250.00 DIAB CORAL WO COMPL, TYPE II OR UNSPEC TY 04/10/2018 CECILY JAY VALIDATION ANALYST Ot 285.9 ANEMIA NOS 04/10/2018 CECILY JAY VALIDATION ANALYST Ot 287.31 IMMUNE THROMBOCYTOPENIC PURPURA 04/10/2018 CECILY JAY VALIDATION ANALYST Ot V12.72 PERSONAL HISTORY OF COLONIC POLYPS 04/10/2018 CECILY JAY VALIDATION ANALYST Ot V58.67 LONG-TERM (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 04/10/2018 CECILY JAYP Ot V58.69 OTH MED,LT,CURRENT USE 04/10/2018 EDU NEWELL JOY Ot 789.00 ABDOMINAL PAIN, UNSPECIFIED SITE 04/10/2018 EDU NEWELL JOY Ot V76.12 OTH SCREEN MAMMO-MALIGN NEOPLASM OF BRENDEN 04/10/2018 DEVANTE WHELAN Ot D64.9 ANEMIA, UNSPECIFIED 04/10/2018 DEVANTE WHELAN Ot D69.3 IMMUNE THROMBOCYTOPENIC PURPURA 04/10/2018 DEVANTE WHELAN Ot E11.9 TYPE 2 DIABETES MELLITUS WITHOUT COMPLIC 04/10/2018 DEVANTE WHELAN Ot 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 04/10/2018 DEVANTE WHELAN Ot Z79.899 OTHER SHELTER (CURRENT) DRUG THERAPY 04/10/2018 Ot D64.9 ANEMIA, UNSPECIFIED 04/10/2018 Ot D69.3 IMMUNE THROMBOCYTOPENIC PURPURA 04/10/2018 Ot E11.9 TYPE 2 DIABETES MELLITUS WITHOUT COMPLIC 04/10/2018 Ot Z79.4 SHELTER ( 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 04/10/2018 Ot Z79.899 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 04/10/2018 CECILY JAYP Ot D64.9 ANEMIA, UNSPECIFIED 04/10/2018 CECILY JAY VALIDATION ANALYST Ot D69.3 IMMUNE THROMBOCYTOPENIC PURPURA 04/10/2018 CECILY JAY VALIDATION ANALYST Ot E11.9 TYPE 2 DIABETES MELLITUS WITHOUT COMPLIC 04/10/2018 CECILY JAY VALIDATION ANALYST Ot 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 04/10/2018 CECILY JAYP Ot Z79.899 OTHER SHELTER (CURRENT) DRUG THERAPY 04/10/2018 SORENSEN DO JOY Ot K55.9 VASCULAR DISORDER OF INTESTINE, UNSPECIF 04/10/2018 SORENSEN DO, JOY Ot R10.84 GENERALIZED ABDOMINAL PAIN 04/10/2018 SORENSEN DO JOY Ot M19.071 PRIMARY OSTEOARTHRITIS, RIGHT ANKLE AND 04/10/2018 SORENSEN DO JOY Ot S92.321A DISP FX OF SECOND METATARSAL BONE, RIGHT 04/10/2018 SORENSEN DO JOY Ot S92.331A DISP FX OF THIRD METATARSAL BONE, RIGHT 04/10/2018 SORENSEN DO JOY Ot X58.XXXA EXPOSURE TO OTHER SPECIFIED FACTORS, INI 04/10/2018 SORENSEN DO JOY Ot Y99.8 OTHER EXTERNAL CAUSE STATUS 04/10/2018 DEVANTE WHELAN Ot D64.9 ANEMIA, UNSPECIFIED 04/10/2018 DEVANTE WHELAN Ot D69.3 IMMUNE THROMBOCYTOPENIC PURPURA 04/10/2018 DEVANTE WHELAN Ot E11.9 TYPE 2 DIABETES MELLITUS WITHOUT COMPLIC 04/10/2018 DEVANTE WHELAN Ot 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 04/10/2018 DEVANTE WHELAN Ot Z79.899 OTHER SHELTER (CURRENT) DRUG THERAPY 04/10/2018 CODY STALLWORTH MD Ot L22 DIAPER DERMATITIS 04/10/2018 CODY STALLWORTH MD Ot L98.491 NON-PRS CHRONIC ULCER SKIN/ SITES LIMITE 04/10/2018 CODY STALLWORTH MD Ot L22 DIAPER DERMATITIS 04/10/2018 CODY STALWLORTH MD Ot L98.491 NON-PRS CHRONIC ULCER SKIN/ SITES LIMITE 04/10/2018 DEVANTE WHELAN Ot D64.9 ANEMIA, UNSPECIFIED 04/10/2018 DEVANTE WHELAN Ot D69.3 IMMUNE THROMBOCYTOPENIC PURPURA 04/10/2018 DEVANTE WHELAN Ot E11.9 TYPE 2 DIABETES MELLITUS WITHOUT COMPLIC 04/10/2018 DEVANTE WHELAN Ot Z79.4 SHELTER (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 04/10/2018 DEVANTE WHELAN Ot Z79.899 OTHER SHELTER (CURRENT) DRUG THERAPY 04/10/2018 JOY SORENSEN DO Ot E03.9 HYPOTHYROIDISM, UNSPECIFIED 04/10/2018 HU SORENSEN DOI Ot E11.65 TYPE 2 DIABETES MELLITUS WITH HYPERGLYCE 04/10/2018 HU SORENSEN DOI Ot E78.00 PURE HYPERCHOLESTEROLEMIA, UNSPECIFIED 04/10/2018 HU SORENSEN DOI Ot R10.84 GENERALIZED ABDOMINAL PAIN Procedures Code Description Performed By Performed On 38.93 VENOUS CATHETERIZATION NEC 09/09/2012 45.62 PART SM BOWEL RESECT NEC 09/09/2012 45.73 OPEN AND OTHER RIGHT HEMICOLECTOMY 09/09/2012 45.93 [id number] BOWEL NEC 09/09/2012 99.15 PARENTERAL INFUSION OF CONCENTRATED NUT. 09/11/2012 Results Test Result Range Bacteria identification in isolate by anaerobe culture - 07/03/16 10:25 Bacteria identification in isolate by anaerobe culture NOANA NRG Gram stain microscopy - 07/03/16 10:25 GRAM STAIN RESULT RARE GRAM POSITIVE COCCI NRG Bacteria identification in wound by culture - 07/03/16 10:25 Bacteria identification in wound by culture [id number] NR FREE TEXT EXTERNAL SENSITIVITY REPORTED AT 0717, 07-05-16 NRG QUANTITY OF GROWTH Scant Growth NRG MRSA AGAR MRSA isolated (Screening test for MRSA is positive) NR CALL POSITIVES (F1 HELP) CALLED TO MICKIE/GABRIEL AT 0918, 07-05-16/KD NRG Bacterial susceptibility panel - 07/03/16 10:25 Oxacillin susceptibility test by minimum inhibitory concentration > = NRG Gentamicin susceptibility test by minimum inhibitory concentration < = NRG Clindamycin susceptibility test by minimum inhibitory concentration <= NRG Erythromycin susceptibility test by minimum inhibitory concentration <= NRG Trimethoprim/sulfamethoxazole susceptibility test by minimum inhibitoryconcentration <= NRG Vancomycin susceptibility test by minimum inhibitory concentration 1 NRG Levofloxacin susceptibility test by minimum inhibitory concentration <= NRG Rifampin susceptibility test by minimum inhibitory concentration <= NRG Tetracycline susceptibility test by minimum inhibitory concentration <= NRG Complete blood count (CBC) with automated white blood cell (WBC) differential - 04/09/18 08:00 Blood leukocytes automated count (number/volume) 7.0 10*3/uL 4.3-11.0 Blood erythrocytes automated count (number/volume) 4.57 10*6/uL 4.35-5.85 Venous blood hemoglobin measurement (mass/volume) 14.0 g/dL 11.5-16.0 Blood hematocrit (volume fraction) 40 % 35-52 Automated erythrocyte mean corpuscular volume 88 [foz_us] 80-99 Automated erythrocyte mean corpuscular hemoglobin (mass per erythrocyte) 31 pg 25-34 Automated erythrocyte mean corpuscular hemoglobin concentration measurement ( mass/volume) 35 g/dL 32-36 Automated erythrocyte distribution width ratio 14.2 % 10.0-14.5 Automated blood platelet count (count/volume) 193 10*3/uL 130-400 Automated blood platelet mean volume measurement 10.7 [foz_us] 7.4-10.4 Automated blood neutrophils/100 leukocytes 41 % 42-75 Automated blood lymphocytes/100 leukocytes 48 % 12-44 Blood monocytes/100 leukocytes 7 % 0-12 Automated blood eosinophils/100 leukocytes 4 % 0-10 Automated blood basophils/100 leukocytes 1 % 0-10 Blood neutrophils automated count (number/volume) 2.9 10*3 1.8-7.8 Blood lymphocytes automated count (number/volume) 3.4 10*3 1.0-4.0 Blood monocytes automated count (number/volume) 0.5 10*3 0.0-1.0 Automated eosinophil count 0.3 10*3/uL 0.0-0.3 Automated blood basophil count (count/volume) 0.1 10*3/uL 0.0-0.1 Comprehensive metabolic panel - 04/09/18 08:00 Serum or plasma sodium measurement (moles/volume) 135 mmol/L 135-145 Serum or plasma potassium measurement (moles/volume) 3.3 mmol/L 3.6-5.0 Serum or plasma chloride measurement (moles/volume) 101 mmol/L 98-107 Carbon dioxide 23 mmol/L 21-32 Serum or plasma anion gap determination (moles/volume) 11 mmol/L 5-14 Serum or plasma urea nitrogen measurement (mass/volume) 7 mg/dL 7-18 Serum or plasma creatinine measurement (mass/volume) 0.96 mg/dL 0.60-1.30 Serum or plasma urea nitrogen/creatinine mass ratio 7 NRG Serum or plasma creatinine measurement with calculation of estimated glomerular filtration rate 56 NRG Serum or plasma glucose measurement (mass/volume) 489 mg/dL 70-105 Serum or plasma calcium measurement (mass/volume) 9.4 mg/dL 8.5-10.1 Serum or plasma total bilirubin measurement (mass/volume) 0.3 mg/dL 0.1-1.0 Serum or plasma alkaline phosphatase measurement (enzymatic activity/volume) 77 U/L 40-136 Serum or plasma aspartate aminotransferase measurement (enzymatic activity/ volume) 10 U/L 5-34 Serum or plasma alanine aminotransferase measurement (enzymatic activity/volume ) 16 U/L 0-55 Serum or plasma protein measurement (mass/volume) 6.6 g/dL 6.4-8.2 Serum or plasma albumin measurement (mass/volume) 3.7 g/dL 3.2-4.5 CALCIUM CORRECTED 9.6 mg/dL 8.5-10.1 Serum or plasma amylase measurement (enzymatic activity/volume) - 04/09/18 08: 00 Serum or plasma amylase measurement (enzymatic activity/volume) 8 U/ L 25-125 Lipase - 04/09/18 08:00 Lipase 32 U/L 8-78 Encounters ACCT No. Visit Date/Time Discharge Status Pt. Type Provider Facility Loc./Unit Complaint [id number] 04/10/2018 05:36:00 04/10/2018 09:28:00 DIS Outpatient GERARDO ZHU, KATHLEEN Mead [facility] PREOP COLONOSCOPY/EGD [id number] 04/09/2018 07:49:00 04/09/2018 23:59:59 CLS Outpatient JOY SORENSEN DO [facility] RAD R10.84 GENERALIZED ABD PAIN [id number] 02/16/2018 09:24:00 02/16/2018 23:59:59 CLS Outpatient DEVANTE WHELAN [facility] ONC [id number] 10/13/2017 09:37:00 10/13/2017 23:59:59 CLS Outpatient CODY STALLWORTH MD [facility] WOUNDCARE [id number] 10/08/2017 12:40:00 10/08/2017 23:59:59 CLS Outpatient CODY STALLWORTH MD [facility] WOUNDCARE [id number] 02/06/2017 09:43:00 02/06/2017 23:59:59 CLS Outpatient DEVANTE WHELAN [facility] ONC [id number] 01/14/2017 14:22:00 01/14/2017 23:59:59 CLS Outpatient SORENSEN DO, JOY [facility] RAD PAIN IN RIGHT LUIS AND JOINTS OF RIGHT FOOT [id number] 08/19/2016 09:49:00 08/19/2016 23:59:59 CLS Outpatient SORENSEN DO, JOY [facility] RAD GERNALIZED ABDOMINAL PAIN [id number] 08/07/2016 08:52:00 08/07/2016 23:59:59 CLS Outpatient SORENSEN DO, JOY [facility] RAD VASCULAR DISORDER OF INTESTINE [id number] 07/31/2016 08:41:00 07/31/2016 16:00:00 DIS Outpatient CODY STALLWORTH MD [facility] WOUNDCARE [id number] 02/15/2016 10:46:00 02/15/2016 23:59:59 CLS Outpatient CECILY JAY [facility] ONC [id number] 02/06/2016 08:41:00 02/06/2016 12:00:00 DIS Outpatient CODY STALLWORTH MD [facility] WOUNDCARE [id number] 11/22/2015 08:41:00 11/22/2015 12:00:00 DIS Outpatient CODY STALLWORTH MD [facility] WOUNDCARE [id number] 11/16/2015 15:50:00 11/20/2015 14:00:00 DIS Inpatient SORENSEN DO, JOY [facility] 4TH ITT [id number] 05/11/2015 12:39:00 05/11/2015 23:59:59 CLS Outpatient DEVANTE WHELAN [facility] ONC [id number] 04/13/2015 12:39:00 04/13/2015 23:59:59 CLS Outpatient SORENSEN DO, JOY [facility] RAD SCREENING [id number] 06/09/2014 09:41:00 06/09/2014 23:59:59 CLS Outpatient SORENSEN DO, JOY [facility] RAD ABD PAIN [id number] 05/12/2014 13:02:00 05/12/2014 23:59:59 CLS Outpatient CECILY JAY VALIDATION ANALYST [facility] ONC [id number] 01/18/2014 11:43:00 01/18/2014 23:59:59 CLS Outpatient SORENSEN DO, JOY [facility] LAB LOW PLATELETS,ITP,RASH [id number] 10/11/2013 18:00:00 12/22/2013 00:01:00 DIS Outpatient SORENSEN DO, JOY [facility] DSME DIABETES [id number] 08/04/2013 09:40:00 08/04/2013 23:59:59 CLS Outpatient SORENSEN DO, JOY [facility] RAD SCREENING [id number] 06/24/2013 15:06:00 06/28/2013 13:40:00 DIS Inpatient SORENSEN DO, JOY [facility] 4TH ACCUTE BULLOUS PEMPHIGOID OF R FLANK,CELLULITIS R [id number] 05/06/2013 13:26:00 05/06/2013 23:59:59 CLS Outpatient DEVANTE WHELAN N [facility] ONC [id number] 04/13/2018 09:45:00 DONAL CARRILLO MD, KATHLEEN Mead [facility] ENDO HX POLYPS/EPIGASTRIC PAIN/DIARRHEA [id number] 12/13/2015 10:37:00 Document Registration [id number] 12/23/2013 13:00:00 Document Registration [id number] 09/09/2012 07:51:00 Document Registration [id number] 09/04/2012 08:23:00 Document Registration [id number] 09/02/2012 08:33:00 Document Registration [id number] 09/01/2012 08:45:00 Document Registration [id number] 08/24/2012 10:19:00 Document Registration [id number] 08/18/2012 14:12:00 Document Registration [id number] 08/04/2012 08:42:00 Document Registration [id number] 07/20/2012 11:16:00 Document Registration [id number] 04/30/2012 09:46:00 Document Registration [id number] 07/29/2011 15:30:00 Document Registration [id number] 05/27/2011 09:58:00 Document Registration [id number] 05/13/2011 12:58:00 Document Registration [id number] 11/19/2010 13:57:00 Document Registration [id number] 09/21/2010 08:40:00 Document Registration [id number] 04/13/2015 12:39:36 ACT Document Registration
[2018-04-13] MEDS ORDERED: NS IV 500 ML 500 ML ONE (07:21)
[2018-04-13] MEDS ORDERED: NS IV 500 ML 500 ML IV PRN (07:52)
[2018-04-13] MEDS ORDERED: fentaNYL INJECTION 100 MCG/2 ML AMP IVP ONE (08:00)
[2018-04-13] MEDS ORDERED: HURRICAINE EXT TUBE (BENZOCAINE) XX PRN (08:00)
[2018-04-13] MEDS ORDERED: MIDAZOLAM 2 MG/2 ML (VERSED) VIAL IVP ONE (08:00)
[2018-04-13] MEDS ORDERED: TOLTA4 PO (08:08)
[2018-04-13 08:14] VITALS: BP 162/70
[2018-04-13] MEDS ORDERED: MIDAZOLAM 2 MG/2 ML (VERSED) VIAL ONE ×3 (08:15)
[2018-04-13] MEDS ORDERED: HURRICAINE EXT TUBE (BENZOCAINE) ONE (08:15)
[2018-04-13] MEDS ORDERED: fentaNYL INJECTION 100 MCG/2 ML AMP ONE (08:15)
[2018-04-13] MEDS ORDERED: inSUlin (REGULAR) HUMAN 1 UNIT/0.01 ML (CHARGE PER UNIT) ONE (08:22)
--- NOTE | 2018-04-13 08:50 | Conscious Sedation/ASA ---
Conscious Sedation Pre-Proced Time Reviewed: 08:08 ASA Class: 2 Airway Mallampati Classification: ([place] appropriate class) I. II. III, IV Lungs Heart ASA score ASA 1: a normal healthy patient ASA 2: a patient with a mild systemic disease (mid diabetes, controlled hypertension, obesity ASA 3: a patient with a severe systemic disease that limits activity (angina , COPD, prior Myocardial infarction) ASA 4: a patient with an incapacitating disease that is a constant threat to life (CHF, renal failure) ASA 5: a moribund patient not expected to survive 24 hrs. (ruptured aneurysm) ASA 6: a declared brain patient whose organs are being harvested. For emergent operations, add the letter E after the classification Grade 2 Sedation Plan: Discussed options with patient/fam Note The patient is an appropriate candidate to undergo the planned procedure, sedation, and anesthesia. The patient immediately re-assessed prior to indication. KATHLEEN CARRILLO MD Apr 13, 2018 08:50
--- NOTE | 2018-04-13 08:56 | Endo Procedure Record ---
Endo Procedure Report Date of Procedure Last Colonoscopy: Yes Apr 13, 2018 Surgeon (s) KATHLEEN CARRILLO MD Post Procedure/Op Diagnosis EGD: Hiatal hernia with grade 2 esophagitis. Multiple distal gastric erosions. Severe distal gastritis. A few, small gastric polyps Colonoscopy:sigmoid diverticulosis Procedure Performed EGD with antral biopsy for H. pylori Hot biopsy excision of gastric polyp Colonoscopy to ileocolic anastomosis Description of Procedure Anesthesia Type: Conscious Sedation Specimen(s) collected/removed antral mucosa for H. pylori. Gastric polyp Description of the Procedure indication for the procedures: This lady came in for an upper endoscopy to evaluate severe epigastric pain and colonoscopy for the dual purpose of investigating diarrhea and polyp surveillance. In 2012, she underwent right hemicolectomy to manage a large sessile polyp of the ascending colon. Informed consent was obtained after reviewing the procedures in detail. Description of procedures: EGD/antral biopsy/gastric polypectomy: She was placed in left lateral decubitus position and her vital signs were monitored. Conscious sedation was achieved using Versed and fentanyl. The flexible gastroscope was introduced down the esophagus, past the stomach, into the proximal duodenum. Findings: Esophagus: Hiatal hernia with grade 2 esophagitis. Stomach: 1. A few, shallow erosions of the antrum. 2. Severe distal gastritis .Biopsy for H. pylori was obtained from the antrum. 3. 2 small polyps along the greater curvature, about a millimeter in size. One of them was excised with hot biopsy forceps. Duodenum: Mild duodenitis. She tolerated the procedure well and was turned around in preparation for colonoscopy. Impression: Epigastric pain. Esophagitis, gastric erosions. Gastric polyps. H. pylori status pending. Colonoscopy: Digital rectal examination was unremarkable. The colonoscope was then introduced into the rectum and advanced to the ileocolic anastomosis. The quality of bowel preparation was reasonable. The scope was then withdrawn slowly and the mucosa examined in a systematic fashion. Findings: Uncomplicated sigmoid diverticulosis. No inflammation was found. No recurrent polyps either. she tolerated the procedures well and was taken to the recovery room in a stable condition. Impression: Polyp surveillance. No recurrence. Diarrhea. No obvious mucosal abnormality discovered. Copy Copies To 1: JOY SORENSEN DO Copies To 2: DEVANTE WHELAN XAVIER M MD Apr 13, 2018 08:56
--- NOTE | 2018-04-13 08:59 | Discharge Inst-Simple/Standard ---
Discharge Inst-Standard Discharge Medications New, Converted or Re-Newed RX: Other Patient Instructions/Follow Up Plan of Care/Instructions/FU: please call for QUESTRON 1 g 3 times a day to her pharmacy with 3 refills, 1 month supply. Follow-up with her primary physician in 3 weeks Activity as Tolerated: Yes Discharge Diet: ADA KATHLEEN Sahni MD Apr 13, 2018 08:59
[2018-04-13 09:10] VITALS: BP 172/77
[2018-04-13 09:40] VITALS: BP 162/67
[2018-04-13 10:25] VITALS: BP 162/67
== END 2018-04-13 10:25 | disposition home or self-care (01) ==
LOC: ENDO 06:30
PROVIDERS: ATTEND Surgery
DX: K31.7 Polyp of stomach and duodenum (principal); K57.30 Diverticulosis of large intestine without perforation or abscess without bleeding; K29.70 Gastritis, unspecified, without bleeding; K20.9 Esophagitis, unspecified; K25.9 Gastric ulcer, unspecified as acute or chronic, without hemorrhage or perforation; K31.9 Disease of stomach and duodenum, unspecified; Z86.010 Personal history of colon polyps; E11.40 Type 2 diabetes mellitus with diabetic neuropathy, unspecified; E78.5 Hyperlipidemia, unspecified; N18.3 Chronic kidney disease, stage 3 (moderate); I12.9 Hypertensive chronic kidney disease with stage 1 through stage 4 chronic kidney disease, or unspecified chronic kidney disease; E03.9 Hypothyroidism, unspecified
CPT/HCPCS: 82962

== ENCOUNTER 2019-02-16 09:38 | Outpatient (RCR) | payer MEDICARE, BC ==
[~2019-02-16 09:38] MED LIST changes: -AMLO10TA6 PO; +AMLO10TA7 PO
[2019-02-16 09:51] LABS: BASOPHILS % (AUTO) 1 % (0-10); EOSINOPHILS # (AUTO) 0.2 10^3/uL (0.0-0.3); EOSINOPHILS % (AUTO) 3 % (0-10); HEMATOCRIT 43 % (35-52); HEMOGLOBIN 13.7 G/DL (11.5-16.0); LYMPHOCYTES # (AUTO) 1.3 X 10^3 (1.0-4.0); LYMPHOCYTES % (AUTO) 19 % (12-44); MEAN CORPUSCULAR HEMOGLOBIN 29 PG (25-34); MEAN CORPUSCULAR HGB CONC 32 G/DL (32-36); MEAN CORPUSCULAR VOLUME 90 FL (80-99); MEAN PLATELET VOLUME 10.3 FL (7.4-10.4); MONOCYTES # (AUTO) 0.5 X 10^3 (0.0-1.0); MONOCYTES % (AUTO) 8 % (0-12); NEUTROPHILS # (AUTO) 4.6 X 10^3 (1.8-7.8); NEUTROPHILS % (AUTO) 69 % (42-75); PLATELET COUNT 203 10^3/uL (130-400); RED CELL DISTRIBUTION WIDTH 14.9 % (10.0-14.5); WHITE BLOOD COUNT 6.6 10^3/uL (4.3-11.0)
[2019-02-16 10:10] LABS: BUN/CREATININE RATIO 8; CALCIUM 9.5 MG/DL (8.5-10.1); CARBON DIOXIDE 24 MMOL/L (21-32); CHLORIDE 97 MMOL/L (98-107); CREATININE SERUM 1.15 MG/DL (0.60-1.30); GFR ESTIMATED 45; POTASSIUM 3.8 MMOL/L (3.6-5.0); SODIUM 134 MMOL/L (135-145)
[2019-02-16 10:11] LABS: ALANINE AMINOTRANSFERASE < 6 U/L (0-55); ALBUMIN 3.7 GM/DL (3.2-4.5); ALKALINE PHOSPHATASE 94 U/L (40-136); BILIRUBIN,TOTAL 0.4 MG/DL (0.1-1.0)
[2019-02-16 10:15] LABS: GLUCOSE 437 MG/DL (70-105)
[2019-02-16] MEDS ORDERED: inSUlin (REGULAR) HUMAN 1 UNIT/0.01 ML DOSE CANCER CTR SC ONE (10:37)
[2019-05-06] MEDS ORDERED: CLON0.1T PO (16:40)
[2019-05-06] MEDS ORDERED: SIMV40TA4 PO (16:40)
[2019-05-06] MEDS ORDERED: LEVO50TA PO (16:40)
[2019-05-06] MEDS ORDERED: LEVO25TA2 PO (16:40)
[2019-05-06] MEDS ORDERED: OXYC10TA7 PO (16:40)
[2019-05-07] MEDS ORDERED: FEXO-46 PO (10:17)
[2019-05-07] MEDS ORDERED: GUAI600T43 PO (10:17)
[2019-05-07] MEDS ORDERED: ASPI-816 PO (10:17)
[2019-05-07] MEDS ORDERED: CALC-6 PO (10:17)
[2019-05-07] MEDS ORDERED: GABA-488 PO (10:17)
[2019-05-07] MEDS ORDERED: MULT1TAB69 PO (10:17)
[2019-05-07] MEDS ORDERED: LOPE2TAB34 PO (10:17)
[2019-05-07] MEDS ORDERED: MAGN1TAB31 PO (10:17)
[2019-05-07] MEDS ORDERED: INSU100I29 SC (10:17)
== END 2019-05-17 | disposition home or self-care (01) ==
LOC: ONC 09:38
PROVIDERS: ATTEND Internal Medicine Hematology & Oncology
DX: D69.3 Immune thrombocytopenic purpura (principal); D64.9 Anemia, unspecified; E11.9 Type 2 diabetes mellitus without complications; Z79.4 Long term (current) use of insulin; Z79.899 Other long term (current) drug therapy
CPT/HCPCS: 36415; 80053; 83615; 85025; 96372

== ENCOUNTER 2019-05-06 11:47 | Inpatient (IN) | payer MEDICARE, BC ==
[~2019-05-06] VITALS: Ht 160 cm; Wt 90.2 kg
[2019-05-06] MEDS ORDERED: NS IV 1000 ML 1,000 ML IV SCH ×3 (12:00→14:45)
--- NOTE | 2019-05-06 12:00 | NUR ---
Unable to preform safety assessment on pt at this time due to AMS.
--- NOTE | 2019-05-06 12:01 | ED General ---
General Stated Complaint: AMS Source of Information: EMS, Family Exam Limitations: No Limitations (ELSA GILBERT APRN) History of Present Illness Date Seen by Provider: May 06, 2019 Time Seen by Provider: 11:56 Initial Comments To ER per [facility] with reports of altered mental status. She was reportedly found by her son on the floor in her house this morning, found to be confused, EMS was summoned and transported here. She was last seen last night with a blood sugar in the 500s, family administered her insulin last night and got that down to the 200 range. She's been refusing insulin for the past few days. Her daughter, Pauly Macedo (dietitian here at via [facility]), states that she's been somewhat "out of it" for the past couple of days. Blood sugar was 112 per EMS on arrival. Patient is unable to contribute to review of systems or his tory of present illness at all, she has a history of diabetes and reportedly her sugar was in the 500 range yesterday. Her temperature upon arrival to ER is 100.8. Timing/Duration: Other Severity: Moderate (ELSA GILBERT APRN) Allergies and Home Medications Allergies Coded Allergies: No Known Drug Allergies (Verified , 10/07/08) Home Medications Alprazolam 0.25 Mg Tablet, 0.25-0.5 MG PO Q6H PRN for ANXIETY, (Reported) TAKES 1 TO 2 (0.25 MG) TABLETS Amlodipine Besylate 10 Mg Tablet, 10 MG PO DAILY, (Reported) Ascorbic Acid 1,000 Mg Tablet, 1,000 MG PO DAILY, (Reported) Calcium/Vitamin D 600 Mg Tab, 1 TAB PO BID, (Reported) Carbidopa/Levodopa 1 Each Tablet, 1 TAB PO TID, (Reported) Clobetasol Propionate 15 Gm Oint...g., 0 GM TOP BID Prescribed by: JOY SORENSEN on 11/20/15 9843 Clorazepate Dipotassium 7.5 Mg Tablet, 7.5 MG PO BID PRN for ANXIETY, (Reported) Esomeprazole Magnesium 40 Mg Capsule.dr, 40 MG PO DAILY, (Reported) Estrogens Conjugated 1.25 Mg Tab, 1.25 MG PO DAILY, (Reported) Fexofenadine Hcl 180 Mg Tablet, 180 MG PO HS PRN for ALLERGIES, (Reported) Furosemide 20 Mg Tablet, 20 MG PO BID PRN for SWELLING, (Reported) Gabapentin 300 Mg Capsule, 300-600 MG PO BID, (Reported) Guaifenesin 1,200 Mg Tbmp.12hr, 1,200 MG PO HS PRN for CONGESTION, (Reported) Insulin Glargine,Hum.rec.anlog 100 Unit/1 Ml Insuln.pen, 30 UNITS SQ HS, (Reported) Insulin Lispro 100 Unit/1 Ml Insuln.pen, 16 UNITS SQ AC, (Reported) WILL HOLD DEPENDING ON BLOOD SUGAR Levothyroxine Sodium 25 Mcg Tablet, 25 MCG PO DAILY, (Reported) TAKES ALONG WITH SYNTHROID 150 MCG TO EQUAL 175 MCG TOTAL DOSE Levothyroxine Sodium 150 Mcg Tablet, 150 MCG PO DAILY, (Reported) TAKES ALONG WITH SYNTHROID 25 MCG TO EQUAL 175 MCG TOTAL DOSE Multivitamins 1 Ea Tablet, 1 TAB PO DAILY, (Reported) Grapevine-3 Acid Ethyl Esters 1 Gm Capsule, 2 GM PO BID, (Reported) Potassium Chloride 20 Meq Tab.er.prt, 20 MEQ PO DAILY, (Reported) Simvastatin 20 Mg Tablet, 20 MG PO HS, (Reported) Telmisartan 80 Mg Tablet, 80 MG PO HS, (Reported) Tolterodine Tartrate 4 Mg Cap.er.24h, 4 MG PO HS, (Reported) Patient Home Medication List Home Medication List Reviewed: Yes (ELSA GILBERT APRN) Review of Systems Review of Systems Constitutional: see HPI ( unable to obtain due to altered mental status) (ELSA GILBERT APRN) Past Swxpcem-Tzlohw-Cnktmj Hx Patient Social History Recent Hopitalizations: Yes (ELSA GILBERT APRN) Immunizations Up To Date Tetanus Booster (TDap): Unknown PED Vaccines UTD: No Date of Pneumonia Vaccine: Aug 21, 2009 Date of Influenza Vaccine: Apr 20, 2011 (ELSA GILBERT APRN) Past Medical History Appendectomy, Gallbladder Chronic Edema/Swelling, High Cholesterol, Hypertension Neuropathy Reproductive Disorders: No Female Reproductive Disorders: Denies Sexually Transmitted Disease: No HIV/AIDS: No Gastroesophageal Reflux, Hiatal Hernia, Irritable Bowel Degenerate Disk Disease, Chronic Back Pain Diabetes, Insulin dep, Hypothyroidsim Cataract Loss of Vision: Denies Hearing Impairment: Denies Anxiety, Depression (ELSA GILBERT APRN) Family Medical History Cancer 03 MOTHER (STOMACH COLON ESOPHAGEAL) Cancer of colon 03 MOTHER 09 SISTER Family history: Cardiovascular disease 09 SISTER (HAS PACEMAKER) Family history: Diabetes mellitus 03 FATHER Myocardial infarction 03 FATHER No Family History of: Abdominal aortic aneurysm Dayton's disease Alcoholism Aphasia Cataract Chest pain Congenital heart disease Congestive heart failure Cystic fibrosis Dementia Dysphagia Family history: Allergy Family history: Alzheimer's disease Family history: Arthritis Family history: Asthma Family history: Coronary thrombosis Family history: Gastrointestinal disease Family history: Glaucoma Family history: Hypertension Family history: Osteoporosis Family history: Thyroid disorder Headache Hearing loss Heart disease Hereditary disease History of - anemia History of - respiratory disease History of drug abuse Human immunodeficiency virus (HIV) seropositivity Hypercholesterolemia Infertile Kidney disease Malignant neoplasm of lung Parkinson's disease Prostate cancer Psychotic disorder Seizure disorder Stroke Tuberculosis Visual impairment No Pertinent Family Hx (ELSA GILBERT APRN) Physical Exam Vital Signs Vital Signs - First Documented 05/06/19 05/06/19 11:47 13:41 Temp 38.2 Pulse 74 Resp 26 B/P (MAP) 122/108 (113) Pulse Ox 96 O2 Delivery Room Air O2 Flow Rate 2.00 (WINDY WARD MD) Vital Signs Capillary Refill : (ELSA GILBERT APRN) Height, Weight, BMI Height: 5'2.00" Weight: 224lbs. 0.9oz. 101.294504cg; 41.0 BMI Method:Stated General Appearance: Obese, Other (oral cavity is terribly dry. There is an apparent disconjugate gaze, the right eye being medially deviated, she does not move her eyes to the right, with any speech or voice she looks up and to the left looking for the source of the voice or sound. She does not follow commands. Unknown to me if she has baseline strabismus of the right eye.) Eyes: Bilateral Eye PERRL HEENT: PERRL/EOMI Neck: Full Range of Motion, Normal Inspection Respiratory: Normal Breath Sounds, No Accessory Muscle Use, No Respiratory Distress Gastrointestinal: Normal Bowel Sounds, Non Tender, Soft Extremity: Normal Capillary Refill, Normal Inspection Neurologic/Psychiatric: Alert Skin: Normal Color, Warm/Dry (ELSA GILBERT APRN) Focused Exam Lactate Level 05/06/19 12:13: Lactic Acid Level 2.68*H (WINDY WARD MD) Lactic Acid Level Laboratory Tests Test 05/06/19 12:13 Lactic Acid Level 2.68 MMOL/L (0.50-2.00) *H (WINDY WARD MD) Progress/Results/Core Measures Suspected Sepsis SIRS Temperature: Pulse: Respiratory Rate: Laboratory Tests 05/06/19 11:50: White Blood Count 11.1H Blood Pressure / Mean: 05/06/19 12:13: Lactic Acid Level 2.68*H Laboratory Tests 05/06/19 00:00: 05/06/19 11:50: Creatinine 0.85, Platelet Count 229, Total Bilirubin 0.3 (ELSA GILBERT APRN) Results/Orders Lab Results Laboratory Tests Test 05/06/19 00:00 05/06/19 11:50 05/06/19 11:59 05/06/19 12:13 Range/Units White Blood Count 11.1 H 4.3-11.0 10^3/uL Red Blood Count 4.98 4.35-5.85 10^6/uL Hemoglobin 14.6 11.5-16.0 G/DL Hematocrit 44 35-52 % Mean Corpuscular Volume 88 80-99 FL Mean Corpuscular Hemoglobin 29 25-34 PG Mean Corpuscular Hemoglobin Concent 33 32-36 G/DL Red Cell Distribution Width 15.3 H 10.0-14.5 % Platelet Count 229 130-400 10^3/uL Mean Platelet Volume 10.7 H 7.4-10.4 FL Neutrophils (%) (Auto) 81 H 42-75 % Lymphocytes (%) (Auto) 11 L 12-44 % Monocytes (%) (Auto) 7 0-12 % Eosinophils (%) (Auto) 0 0-10 % Basophils (%) (Auto) 0 0-10 % Neutrophils # (Auto) 9.0 H 1.8-7.8 X 10^3 Lymphocytes # (Auto) 1.3 1.0-4.0 X 10^3 Monocytes # (Auto) 0.8 0.0-1.0 X 10^3 Eosinophils # (Auto) 0.0 0.0-0.3 10^3/uL Basophils # (Auto) 0.1 0.0-0.1 10^3/uL Sodium Level 141 135-145 MMOL/L Potassium Level 2.5 *L 3.6-5.0 MMOL/L Chloride Level 100 98-107 MMOL/L Carbon Dioxide Level 30 21-32 MMOL/L Anion Gap 11 5-14 MMOL/L Blood Urea Nitrogen 7 7-18 MG/DL Creatinine 0.85 0.60-1.30 MG/DL Estimat Glomerular Filtration Rate > 60 BUN/Creatinine Ratio 8 Glucose Level 110 H 70-105 MG/DL Calcium Level 8.8 8.5-10.1 MG/DL Corrected Calcium 9.0 8.5-10.1 MG/DL Total Bilirubin 0.3 0.1-1.0 MG/DL Aspartate Amino Transf (AST/SGOT) 30 5-34 U/L Alanine Aminotransferase (ALT/SGPT) 18 0-55 U/L Alkaline Phosphatase 107 40-136 U/L Troponin I 0.028 <0.028 NG/ML Total Protein 6.9 6.4-8.2 GM/DL Albumin 3.8 3.2-4.5 GM/DL Urine Color YELLOW Urine Clarity CLEAR Urine pH 6 5-9 Urine Specific Joiner 1.010 L 1.016-1.022 Urine Protein 3+ H NEGATIVE Urine Glucose (UA) NEGATIVE NEGATIVE Urine Ketones NEGATIVE NEGATIVE Urine Nitrite NEGATIVE NEGATIVE Urine Bilirubin NEGATIVE NEGATIVE Urine Urobilinogen NORMAL NORMAL MG/DL Urine Leukocyte Esterase NEGATIVE NEGATIVE Urine RBC (Auto) 2+ H NEGATIVE Urine RBC 0-2 /HPF Urine WBC 0-2 /HPF Urine Squamous Epithelial Cells 2-5 /HPF Urine Crystals NONE /LPF Urine Bacteria TRACE /HPF Urine Casts PRESENT /LPF Urine Hyaline Casts 0-2 H /LPF Urine Mucus SMALL H /LPF Urine Culture Indicated NO Glucometer 98 70-110 MG/DL Lactic Acid Level 2.68 *H 0.50-2.00 MMOL/L (WINDY WARD MD) My Orders Orders - WINDY WARD MD Ns Iv 1000 Ml (Sodium Chloride 0.9%) (05/06/19 12:00) Potassium Cl 10meq/50ml Ivpb (Kcl 10 Meq (05/06/19 12:45) (WINDY WARD MD) Medications Given in ED Current Medications Medications Dose Ordered Sig/Alonzo Route Start Time Stop Time Status Last Admin Dose Admin Acetaminophen [address] 05/06/19 12:15 05/06/19 12:16 DC 05/06/19 12:39 650 MG Potassium Chloride 50 ml @ 50 mls/hr ONCE ONCE IV 05/06/19 13:30 05/06/19 14:29 05/06/19 13:20 50 MLS/HR (WINDY WARD MD) Vital Signs/I&O 05/06/19 05/06/19 05/06/19 11:47 12:39 13:41 Temp 38.2 38.2 Pulse 74 Resp 26 B/P (MAP) 122/108 (113) Pulse Ox 96 98 O2 Delivery Room Air Nasal Cannula O2 Flow Rate 2.00 (WINDY WARD MD) Vital Signs/I&O Capillary Refill : (ELSA GILBERT APRN) Diagnostic Imaging Diagonstic Imaging: CT Comments NAME: VERÓNICA RICHARD [facility] REC#: [id number] PT STATUS: REG ER : 1935 PHYSICIAN: ELSA GILBERT APRN ADMIT DATE: 05/06/19/ER Draft Date of Exam:05/06/19 CT HEAD/CERVICAL SPINE WO Clinical indication: Patient with altered mental status and dehydrated. Exam: Head CT without IV contrast. Axial CT scan of the cervical spine with sagittal and coronal reformations. Auto Exposure Controls were utilized during the CT exam to meet ALARA standards for radiation dose reduction. Comparison: None. Findings: Head CT: There is no evidence of acute cerebral infarct, intracranial hemorrhage, or gross mass effect. The brain parenchymal volume appears appropriate for patient's age. There are small patchy and confluent areas of low attenuation white matter changes involving both cerebral hemispheres suspect to represent chronic small vessel ischemic disease and mild leukoaraiosis. There is normal goode-white matter distinction. There is no significant midline shift or herniation. There is no evidence of hydrocephalus. The basal cisterns are unremarkable. The skull, extracranial soft tissue, and orbits are unremarkable. There is moderate consolidation involving the ethmoid sinus. Temporal bones show no significant abnormality. Cervical spine: There is no acute cervical spine fracture. There is grade I anterolisthesis of C2 on C3, C3 on C4 and C6 on C7. There are hypertrophic spurs involving the cervical spine and facet arthropathy/hypertrophy. There is severe bilateral neural foramen narrowing at the C3-C4 level and moderate left C4-C5 neural foramen narrowing. There is no significant neck soft tissue abnormality. Visualized upper lung duncan are clear. Impression: 1: There is no evidence of acute intracranial process. There is no skull fracture. 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 There is degenerative grade I anterolisthesis of C2 on C3, C3 on C4, and C6 on C7. 3: Age-related brain parenchymal changes. 4: Ethmoid sinus disease. Dictated on workstation # [id number] Dict: 05/06/19 1229 Trans: 05/06/19 1237 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 (ELSA GILBERT APRN) 3 separate draws for a d-dimer have hemolyzed and the effort is discontinued. [address] Sorensen and she will accept the patient in admission. Chest x-ray has been ordered and will be ACQquired. Blood cultures are ordered. Discussed the findings with the patient's family. She appears more alert but her confusion has not changed. She is not felt to be a thrombolytic candidate by virtue of unknown onset and metabolic disarray. There is no apparent source of fever however the CBC was minimally elevated in regard to WBCs. (WINDY WARD MD) Impression Primary Impression: fever Additional Impression: Hypokalemia Disposition: ADMITTED INPATIENT Condition: Stable/Unchanged Admissions Decision to Admit Reason: Admit from ER (General) Decision to Admit/Date: May 06, 2019 Time/Decision to Admit Time: 13:35 (WINDY WARD MD) Departure-Patient Inst. Referrals: JOY SORENSEN DO (PCP/Family) Primary Care Physician ELSA GILBERT APRN May 06, 2019 12:01 WINDY WARD MD May 06, 2019 13:24
[2019-05-06 12:03] LABS: BASOPHILS # (AUTO) 0.1 10^3/uL (0.0-0.1); BASOPHILS % (AUTO) 0 % (0-10); EOSINOPHILS % (AUTO) 0 % (0-10); HEMATOCRIT 44 % (35-52); HEMOGLOBIN 14.6 G/DL (11.5-16.0); LYMPHOCYTES # (AUTO) 1.3 X 10^3 (1.0-4.0); LYMPHOCYTES % (AUTO) 11 % (12-44); MEAN CORPUSCULAR HEMOGLOBIN 29 PG (25-34); MEAN CORPUSCULAR HGB CONC 33 G/DL (32-36); MEAN CORPUSCULAR VOLUME 88 FL (80-99); MEAN PLATELET VOLUME 10.7 FL (7.4-10.4); MONOCYTES # (AUTO) 0.8 X 10^3 (0.0-1.0); MONOCYTES % (AUTO) 7 % (0-12); NEUTROPHILS % (AUTO) 81 % (42-75); PLATELET COUNT 229 10^3/uL (130-400); RED CELL DISTRIBUTION WIDTH 15.3 % (10.0-14.5); WHITE BLOOD COUNT 11.1 10^3/uL (4.3-11.0)
[2019-05-06] MEDS ORDERED: ACETAMINOPHEN 650 MG SUPP (TYLENOL) PR ONE (12:15)
[2019-05-06 12:25] LABS: ALANINE AMINOTRANSFERASE 18 U/L (0-55); ALBUMIN 3.8 GM/DL (3.2-4.5); ALKALINE PHOSPHATASE 107 U/L (40-136); BILIRUBIN,TOTAL 0.3 MG/DL (0.1-1.0); BUN/CREATININE RATIO 8; CALCIUM 8.8 MG/DL (8.5-10.1); CARBON DIOXIDE 30 MMOL/L (21-32); CHLORIDE 100 MMOL/L (98-107); CREATININE SERUM 0.85 MG/DL (0.60-1.30); GFR ESTIMATED > 60; GLUCOSE 110 MG/DL (70-105); SODIUM 141 MMOL/L (135-145); TOTAL PROTEIN 6.9 GM/DL (6.4-8.2)
[2019-05-06 12:31] LABS: POTASSIUM 2.5 MMOL/L (3.6-5.0)
--- NOTE | 2019-05-06 12:37 | Diagnostic Imaging Report ---
Clinical indication: Patient with altered mental status and dehydrated. Exam: Head CT without IV contrast. Axial CT scan of the cervical spine with sagittal and coronal reformations. Auto Exposure Controls were utilized during the CT exam to meet ALARA standards for radiation dose reduction. Comparison: None. Findings: Head CT: There is no evidence of acute cerebral infarct, intracranial hemorrhage, or gross mass effect. The brain parenchymal volume appears appropriate for patient's age. There are small patchy and confluent areas of low attenuation white matter changes involving both cerebral hemispheres suspect to represent chronic small vessel ischemic disease and mild leukoaraiosis. There is normal goode-white matter distinction. There is no significant midline shift or herniation. There is no evidence of hydrocephalus. The basal cisterns are unremarkable. The skull, extracranial soft tissue, and orbits are unremarkable. There is moderate consolidation involving the ethmoid sinus. Temporal bones show no significant abnormality. Cervical spine: There is no acute cervical spine fracture. There is grade I anterolisthesis of C2 on C3, C3 on C4 and C6 on C7. There are hypertrophic spurs involving the cervical spine and facet arthropathy/hypertrophy. There is severe bilateral neural foramen narrowing at the C3-C4 level and moderate left C4-C5 neural foramen narrowing. There is no significant neck soft tissue abnormality. Visualized upper lung duncan are clear. Impression: 1: There is no evidence of acute intracranial process. There is no skull fracture. 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 There is degenerative grade I anterolisthesis of C2 on C3, C3 on C4, and C6 on C7. 3: Age-related brain parenchymal changes. 4: Ethmoid sinus disease. Dictated by: Dictated on workstation # [id number]
[2019-05-06] MEDS ORDERED: POTASSIUM CL 10MEQ/50ML IVPB 50 ML IV SCH (12:45)
[2019-05-06 12:58] LABS: BILIRUBIN,URINE NEGATIVE (NEGATIVE); CLARITY,URINE CLEAR; COLOR,URINE YELLOW; GLUCOSE, URINE (UA) NEGATIVE (NEGATIVE); KETONES,URINE NEGATIVE (NEGATIVE); LEUKOCYTE ESTERASE ,URINE NEGATIVE (NEGATIVE); NITRITE,URINE NEGATIVE (NEGATIVE); PH,URINE 6 (5-9); PROTEIN,URINE 3+ (NEGATIVE)
[2019-05-06 13:06] LABS: BACTERIA,URINE TRACE /HPF; RBC,URINE 0-2 /HPF; WBC,URINE 0-2 /HPF
[2019-05-06 13:07] LABS: HYALINE CASTS, URINE 0-2 /LPF
[2019-05-06] MEDS ORDERED: POTASSIUM CL 10MEQ/50ML IVPB 50 ML IV ONE (13:30)
--- NOTE | 2019-05-06 13:37 | NUR ---
Pt's temp 38.5 at this time. [facility] notified.
--- NOTE | 2019-05-06 13:53 | Diagnostic Imaging Report ---
INDICATION: Patient found down. Frontal chest obtained at 0122 p.m., compared to 09/09/2012. Heart and mediastinal silhouette are normal. There is mild central vascular prominence. There is no overt consolidation or pneumothorax or pleural fluid. IMPRESSION: Mild central vascular prominence. No focal infiltrate or pneumothorax or pleural fluid. Dictated by: Dictated on workstation # [id number]
[2019-05-06] MEDS ORDERED: CEFEPIME INJECTION 1,000 MG in WATER (STERILE) FOR INJECTION 10 ML IV ONE (14:15)
[2019-05-06] MEDS: NS W/KCL 20 MEQ/L 1,000 ML IV SCH (14:15)
[2019-05-06] MEDS ORDERED: WATER (STERILE) FOR INJECTION 10 ML ONE (14:35)
[2019-05-06] MEDS ORDERED: CEFEPIME 1 GM (MAXIPIME) VIAL ONE (14:35)
--- NOTE | 2019-05-06 15:22 | NUR ---
VERÓNICA RICHARD admitted to room 418-1, with an admitting diagnosis of SEPSIS CONFUSION, on 05/06/19 from er [facility] accompanied by ED STAFF.VERÓNICA RICHARD introduced to surroundings, call light, bed controls, phone, TV, temperature control, lights, meal times, smoking policy, visitor policy, side rail policy, bathrooms and showers. Patient Rights given to patient in the handbook. VERÓNICA RICHARD verbalizes understanding that [facility] is not responsible for the loss or damage to any personal effects or valuables that are kept in the patients posession during their hospitalization. VERÓNICA RICHARD verbalizes understanding of Interdisciplinary Patient Education. Patient and/or family were informed about the Rapid Response Team and its purpose.
[2019-05-06 15:40] VITALS: BP 165/95
[2019-05-06 15:44] VITALS: BP 165/95
[2019-05-06 15:44] LABS: FIBRIN DEGRADATION PRODUCTS 1.6 UG/ML (0.00-0.49); PROTHROMBIN TIME PATIENT 13.9 SEC (12.2-14.7)
[2019-05-06] MEDS ORDERED: SIMV40TA4 PO (16:40)
[2019-05-06] MEDS ORDERED: LEVO50TA PO (16:40)
[2019-05-06] MEDS ORDERED: OXYC10TA7 PO (16:40)
[2019-05-06] MEDS ORDERED: LEVO25TA2 PO (16:40)
[2019-05-06] MEDS ORDERED: CLON0.1T PO (16:40)
--- NOTE | 2019-05-06 16:40 | NUR ---
SPOKE WITH FAMILY IN THE ROOM REGARDING MEDICATIONS. SHE ASKED THAT I CALL THE PATIENTS DAUGHTER CAROL. I CALLED AND LEFT A VOICEMAIL FOR CAROL BUT DID NOT RECEIVE A CALL BACK PRIOR TO END OF MY SHIFT. I UPDATED THE MED REC WITH WHAT MEDICATIONS HAVE BEEN FILLED RECENTLY THROUGH [facility] MAIL ORDER [facility] ACCORDING TO THE EXT MED HX BUT THERE ARE SEVERAL MEDICATIONS OF FILE FROM PREVIOUS VISITS THAT HAVE NOT BEEN FILLED RECENTLY. I WILL FOLLOW UP WITH CAROL TOMORROW. I PASSED THIS INFORMATION ON THE NURSE RONALD AT THIS TIME. Addendum: 05/07/19 at 1053 by KEVIN ZAVALA [facility] CALLED THE PATIENTS DAUGHTER CAROL AGAIN THIS MORNING. SHE STATES HER MOM HAS NOT LET HER HELP WITH HER MEDICATIONS BUT AFTER THIS STAY AT THE HOSPITAL SHE IS GOING TO START GETTING INVOLVED. CAROL ASKED THAT I GET A LIST FROM DR. SORENSEN'S OFFICE THAT IS PROBABLY THE MOST ACCURATE LIST OF WHAT THE PATIENT IS SUPPOSED TO BE TAKING BUT ADMITS SHE MAY NOT HAVE BEEN TAKING THE MEDICATIONS PRESCRIBED. I HAD A LIST FAXED OVER FROM DR. SORENSEN'S OFFICE AND COMPARED IT WITH THE EXT MED HX. I CALLED [facility] AND VERIFIED THEY HAVE NOT FILLED ANY MEDICATION MORE RECENTLY THAN SHOWN ON THE EXT MED HX, THEY CAN SEE MAIL ORDER AND RETAIL CLAIMS. I ALSO VERIFIED WITH [facility] THEY FILLED THE OXYCODONE IN FEBRUARY AND PRIOR TO THAT FILL IT WAS JULY SINCE THEY DISPENSED ANY MEDICATION. I NOTED THE PAST DUE FILL DATES ON SEVERAL MEDICATIONS: 11-27-18 HUMALOG KWIKPEN #45 11-27-18 LEVEMIR FLEXTOUCH #45 11-12-18 GABAPENTIN 300MG #450 09-14-18 MICARDIS 80MG DAILY #90 09-14-18 AMLODIPINE 10MG DAILY #[address] SORENSEN'S OFFICE SHOWS LEVOTHYROXINE 50MCG AND 200MCG - [facility]ANLEY[facility] FILLED THE 50MCG AND A 25MCG TABLET BUT DID NOT HAVE RECORD OF FILLING A 200MCG. I UPDATED THE MED REC WITH THE 50 AND 25. THE LIST FROM DR. SORENSEN'S OFFICE ALSO INCLUDED THE FOLLOWING THAT I REMOVED FROM THE MED REC BECAUSE OF NOT BEING FILLED: 05-26-18 BENTYL 10MG #60 07-25-17 XANAX 0.25MG #180 (ACCORDING TO [facility]) 12-26-16 TRANXENE 7.5MG #180 (ACCORDING TO [facility]) NOT ON FILE - LOVAZA 2 CAPS BID NOT ON FILE SINEMET 25-100 TID NOT ON FILED- SYNTHROID 200MCG DAILY OTC MEDS REPORTED ON LIST: IMODIUM QID PRN TOY BACK AND BODY 2 BID PRN VITAMIN C 1000MG BID GAVISCON CHEW 1-2 QID PRN CALCIUM +D BID DAGOBERTO 180MG DAILY (PRN) MTV DAILY MUCINEX 600MG TID PRN
--- NOTE | 2019-05-06 18:15 | NUR ---
MOVED TO ROOM 414 TO BE CLOSER TO DESK FOR PT SAFETY.
[2019-05-06] MEDS ORDERED: diphenhydrAMINE 25 MG TAB (BENADRYL) PO PRN (18:30)
[2019-05-06] MEDS ORDERED: MELATONIN 3 MG TABLET PO PRN (18:30)
[2019-05-06] MEDS ORDERED: LORazepam INJ 2 MG/ML (ATIVAN) VIAL IVP PRN (18:30)
[2019-05-06] MEDS ORDERED: DOCUSATE SODIUM 100 MG (COLACE) CAP PO PRN (18:30)
[2019-05-06] MEDS ORDERED: ONDANSETRON 4 MG/2 ML (SDV) Z0FRAN IVP PRN (18:30)
[2019-05-06] MEDS ORDERED: fentaNYL INJECTION 100 MCG/2 ML AMP IVP PRN (18:30)
[2019-05-06] MEDS ORDERED: ONDANSETRON 4 MG (ZOFRAN) ORAL DISSOLVE TAB PO PRN (18:30)
[2019-05-06] MEDS ORDERED: CALCIUM CARBONATE 500 MG (TUMS) TAB.CHEW PO PRN (18:30)
[2019-05-06] MEDS ORDERED: HALOPERIDOL 5 MG/ML (HALDOL) AMP IM PRN (18:30)
[2019-05-06] MEDS ORDERED: ACETAMINOPHEN 500 MG TAB (TYLENOL) PO PRN (18:30)
--- NOTE | 2019-05-06 18:30 | History & Physical ---
History of Present Illness HPI/Chief Complaint Chief complaint: Altered mental status with profound dehydration History of present illness: This is an 83-year-old white female clinic patient of mine for the past 13 years who has severe medical problems including insulin- dependent diabetes mellitus [id number] usual hemoglobin A1c of 11, bullous pemphigoid remote history, chronic abdominal pain dependent on narcotics, and severe neuropathy with Charcot feet who has had a rapid decline in her health although she was severely chronically ill on an ongoing basis. She began missing appointments because of falls recently we did speak with her daughter Pauly and just in the last week she has had such significant decline that this morning it decompensated to be found on the floor paramedics were called brought her to the ER and was found to have such severe dehydration that her tongue was shrunken. Her last creatinine was 1.22 weeks ago but her creatinine today was normal which was surprising. Patient was found to have an elevated lactic acid patient was pancultured UA and chest x-ray showed no evidence of the source so likely hypovolemia and vasoconstriction was the cause. Currently patient is confused and does not appear to even recognize me. We will continue aggressive IV fluids cover with broad-spectrum antibiotic of Rocephin in case the cultures or urine ends up being a source of infection and will closely follow but patient has a very grave prognosis. Source: old records Exam Limitations: clinical condition Date Seen 05/06/19 Time Seen by a Provider: 18:20 Attending Physician Tressa Stephens DO PCP Tressa Stephens DO Referring Physician Date of Admission May 06, 2019 at 14:10 Home Medications & Allergies Home Medications Reviewed patient Home Medication Reconciliation performed by pharmacy medication reconciliations emergency room technician and/or nursing. Patients Allergies have been reviewed. Allergies Allergies Coded Allergies No Known Drug Allergies ([id number]/17/19) Past Qigsupp-Ijzfud-Pjgpew Hx Past Med/Social Hx: Reviewed Nursing Past Med/Soc Hx, Reviewed and Corrections made Patient Social History Marrital Status: Employed/Student: retired Alcohol Use: Denies Use Recreational Drug Use: No Smoking Status: Never a Smoker 2nd Hand Smoke Exposure: No Recent Foreign Travel: No Contact w/other who traveled: No Recent Hopitalizations: Yes Recent Infectious Disease Expo: No Immunizations Up To Date Tetanus Booster (TDap): Unknown Pediatric: No Date of Pneumonia Vaccine: Aug 21, 2009 Date of Influenza Vaccine: Apr 20, 2011 Past Medical History Surgeries: Appendectomy, Gallbladder Cardiac: Chronic Edema/Swelling, High Cholesterol, Hypertension Neurological: Neuropathy Reproductive: No Sexually Transmitted Disease: No HIV/AIDS: No Female Reproductive Disorders: Denies Gastrointestinal: Gastroesophageal Reflux, Hiatal Hernia, Irritable Bowel Musculoskeletal: Degenerate Disk Disease, Chronic Back Pain Endocrine: Diabetes, Insulin dep, Hypothyroidsim HEENT: Cataract Loss of Vision: Denies Hearing Impairment: Denies Psychosocial: Anxiety, Depression History of Blood Disorders: No Family History Cancer 03 MOTHER (STOMACH COLON ESOPHAGEAL) Cancer of colon 03 MOTHER 09 SISTER Family history: Cardiovascular disease 09 SISTER (HAS PACEMAKER) Family history: Diabetes mellitus 03 FATHER Myocardial infarction 03 FATHER No Family History of: Abdominal aortic aneurysm Shirley's disease Alcoholism Aphasia Cataract Chest pain Congenital heart disease Congestive heart failure Cystic fibrosis Dementia Dysphagia Family history: Allergy Family history: Alzheimer's disease Family history: Arthritis Family history: Asthma Family history: Coronary thrombosis Family history: Gastrointestinal disease Family history: Glaucoma Family history: Hypertension Family history: Osteoporosis Family history: Thyroid disorder Headache Hearing loss Heart disease Hereditary disease History of - anemia History of - respiratory disease History of drug abuse Human immunodeficiency virus (HIV) seropositivity Hypercholesterolemia Infertile Kidney disease Malignant neoplasm of lung Parkinson's disease Prostate cancer Psychotic disorder Seizure disorder Stroke Tuberculosis Visual impairment No Pertinent Family Hx Review of Systems Constitutional: see HPI Physical Exam Physical Exam Vital Signs Vital Signs - First Documented 05/06/19 05/06/19 11:47 13:41 Temp 38.2 Pulse 74 Resp 26 B/P (MAP) 122/108 (113) Pulse Ox 96 O2 Delivery Room Air O2 Flow Rate 2.00 Capillary Refill : Less Than 3 SecondsLess Than 3 Seconds Height, Weight, BMI Height: 5'2.00" Weight: 224lbs. 0.9oz. [id number]; 35.23 BMI Method:Stated General Appearance: Anxious, Chronically ill, Moderate Distress, Obese, Other (oral cavity is terribly dry. There is an apparent disconjugate gaze, the right eye being medially deviated, she does not move her eyes to the right, with any speech or voice she looks up and to the left looking for the source of the voice or sound. She does not follow commands. Unknown to me if she has baseline strabismus of the right eye.) Eyes: Bilateral Eye PERRL HEENT: PERRL/EOMI, Other (dry MM) Neck: Full Range of Motion, Normal Inspection, Non Tender, Supple Respiratory: Normal Breath Sounds, No Accessory Muscle Use, No Respiratory Distress Cardiovascular: Regular Rate, Rhythm, No Edema, No Gallop, No JVD, No Murmur, Normal Peripheral Pulses Gastrointestinal: Normal Bowel Sounds, Non Tender, Soft Extremity: Normal Capillary Refill, Normal Inspection Neurologic/Psychiatric: Alert, Disoriented Skin: Normal Color, Warm/Dry Results Results/Procedures Labs Laboratory Tests 05/06/19 11:50 Patient resulted labs reviewed. Assessment/Plan Admission Diagnosis Assessment: AMS Profound dehydration Fall found down DM OOC usually HGA1C 11 h/o bullous pemphigoid HTN Neuropathy Chronic abdominal pain Anxiety Depression Obesity Plan: IVF Rocephin empirically Accuchecks PT/OT Lovenox 40mg SQ daily with SCD's Pain control Very poor prognosis if she does not respond to aggressive treatment Admission Status: Inpatient Order (span 2 midnights) Reason for Inpatient Admission: Severe AMS and profound dehydration Diagnosis/Problems Diagnosis/Problems (1) Altered mental status Status: Acute Qualifiers: Altered mental status type: unspecified Qualified Codes: R41.82 - Altered mental status, unspecified (2) Dehydration determined by examination (3) Hypoglycemia (4) Hyperglycemia (5) Diabetes (6) Neuropathy (7) Hypertension (8) Anxiety (9) Bullous pemphigoid (10) Hypokalemia Status: Acute Clinical Quality Measures DVT/VTE Risk/Contraindication: Risk Factor Score Per Nursin RFS Level Per Nursing on Admit: 4+=Very High TRESSA STEPHENS DO May 06, 2019 18:30
[2019-05-06] MEDS ORDERED: ENOXAPARIN 40 MG/0.4 ML (LOVENOX) SYR SC SCH (19:30)
[2019-05-06 19:35] VITALS: BP 158/77
[2019-05-06] MEDS ORDERED: ACETAMINOPHEN 650 MG SUPP (TYLENOL) PR PRN (20:45)
[2019-05-06] MEDS: inSUlin ASPART (NovoLOG) 1 UNIT/0.01 ML (CHARGE PER UNIT) SC SCH (20:48)
[2019-05-06] MEDS: SENNA W/DOCUSATE (SENOKOT S) TABLET PO SCH (21:02)
[2019-05-07] VITALS: BP 162/73
[2019-05-07] MEDS: NS W/KCL 20 MEQ/L 1,000 ML IV SCH ×2 (00:14→10:31)
[2019-05-07 04:14] LABS: BASOPHILS % (AUTO) 1 % (0-10); EOSINOPHILS % (AUTO) 0 % (0-10); HEMATOCRIT 43 % (35-52); HEMOGLOBIN 14.4 G/DL (11.5-16.0); LYMPHOCYTES # (AUTO) 1.3 X 10^3 (1.0-4.0); LYMPHOCYTES % (AUTO) 20 % (12-44); MEAN CORPUSCULAR HEMOGLOBIN 29 PG (25-34); MEAN CORPUSCULAR HGB CONC 34 G/DL (32-36); MEAN CORPUSCULAR VOLUME 86 FL (80-99); MONOCYTES # (AUTO) 0.3 X 10^3 (0.0-1.0); MONOCYTES % (AUTO) 5 % (0-12); NEUTROPHILS % (AUTO) 75 % (42-75); RED CELL DISTRIBUTION WIDTH 15.3 % (10.0-14.5); WHITE BLOOD COUNT 6.7 10^3/uL (4.3-11.0)
[2019-05-07 04:18] VITALS: BP 120/74
[2019-05-07 04:21] LABS: PLATELET COUNT 40 10^3/uL (130-400)
[2019-05-07 04:38] LABS: ALANINE AMINOTRANSFERASE 32 U/L (0-55); ALBUMIN 3.3 GM/DL (3.2-4.5); ALKALINE PHOSPHATASE 80 U/L (40-136); BILIRUBIN,TOTAL 0.6 MG/DL (0.1-1.0); BUN/CREATININE RATIO 6; CALCIUM 7.6 MG/DL (8.5-10.1); CARBON DIOXIDE 24 MMOL/L (21-32); CHLORIDE 93 MMOL/L (98-107); CHOLESTEROL 144 MG/DL (< 200); CREATININE SERUM 0.89 MG/DL (0.60-1.30); GFR ESTIMATED > 60; GLUCOSE 269 MG/DL (70-105); HDL CHOLESTEROL 45 MG/DL (40-60); POTASSIUM 3.3 MMOL/L (3.6-5.0); SODIUM 134 MMOL/L (135-145); TOTAL PROTEIN 6.3 GM/DL (6.4-8.2); TRIGLYCERIDES 162 MG/DL (<150); VLDL CHOLESTEROL 32 MG/DL (5-40)
[2019-05-07] MEDS: inSUlin ASPART (NovoLOG) 1 UNIT/0.01 ML (CHARGE PER UNIT) SC SCH ×3 (05:39→20:40)
[2019-05-07] MEDS ORDERED: cefTRIAXone FOR IV USE 1,000 MG in WATER (STERILE) FOR INJECTION 10 ML IV SCH (07:00)
--- NOTE | 2019-05-07 07:27 | History & Physical ---
History of Present Illness History of Present Illness Date of Admission May 06, 2019 at 14:10 I consulted on this patient on 05/07/19 07:26 Attending Physician Tressa Stephens DO Admitting Physician Tressa Stephens DO Consult Allergies and Home Medications Allergies Coded Allergies: No Known Drug Allergies (Verified , 05/06/19) Home Medications Alprazolam 0.25 Mg Tablet, 0.25-0.5 MG PO Q6H PRN for ANXIETY, (Reported) TAKES 1 TO 2 (0.25 MG) TABLETS Amlodipine Besylate 10 Mg Tablet, 10 MG PO DAILY, (Reported) LAST FILLED #90 09-14-18 Ascorbic Acid 1,000 Mg Tablet, 1,000 MG PO DAILY, (Reported) Aspirin/Caffeine 1 Each Tablet, 2 TAB PO BID PRN for PAIN-MILD, (Reported) Calcium Carbonate/Vitamin D3 1 Each Tablet, 1 TAB PO BID, (Reported) Carbidopa/Levodopa 1 Each Tablet, 1 TAB PO TID, (Reported) Clonidine HCl 0.1 Mg Tablet, 0.1 MG PO TID PRN for SYSTOLIC BLOOD PRESSURE, (Reported) Clorazepate Dipotassium 7.5 Mg Tablet, 7.5 MG PO BID PRN for ANXIETY, (Reported) Esomeprazole Magnesium 40 Mg Capsule.dr, 40 MG PO DAILY, (Reported) Fexofenadine HCl 180 Mg Tablet, 180 MG PO HS PRN for ALLERGIES, (Reported) Gabapentin 300 Mg Capsule, 300-600 MG PO TID, (Reported) LAST FILLED #450 11-12-18 Gabapentin 300 Mg Capsule, 900 MG PO HS, (Reported) LAST FILLED #450 11-12-18 TAKES 3 (300MG) CAPSULES Guaifenesin 600 Mg Tab.er.12h, 600 MG PO TID PRN for CONGESTION, (Reported) Insulin Detemir 100 Unit/1 Ml Insuln.pen, 40 UNITS SC HS, (Reported) Insulin Lispro 100 Unit/1 Ml Insuln.pen, 16 UNITS SQ TIDAC, (Reported) Levothyroxine Sodium 25 Mcg Tablet, 25 MCG PO DAILY, (Reported) Levothyroxine Sodium 50 Mcg Tablet, 50 MCG PO DAILY, (Reported) Loperamide HCl 2 Mg Tablet, 2 MG PO QID PRN for DIARRHEA, (Reported) Magnesium Carbonate/Al Hydrox 1 Each Tab.chew, 1-2 TAB.CHEW PO QID PRN for HEARTBURN, (Reported) Multivitamin 1 Each Tablet, 1 TAB PO DAILY, (Reported) [place]-3 Acid Ethyl Esters 1 Gm Capsule, 2 GM PO BID, (Reported) Oxycodone HCl 10 Mg Tablet, 10-20 MG PO BID PRN for PAIN-SEVERE, (Reported) Simvastatin 40 Mg Tablet, 40 MG PO HS, (Reported) Telmisartan 80 Mg Tablet, 80 MG PO HS, (Reported) LAST FILLED #90 09-14-18 Tolterodine Tartrate 4 Mg Cap.er.24h, 4 MG PO HS, (Reported) Past Dwdbowe-Xxnwec-Ycaoac Hx Patient Social History Marrital Status: Employed/Student: retired Alcohol Use: Denies Use Recreational Drug Use: No Smoking Status: Never a Smoker 2nd Hand Smoke Exposure: No ( smoked but quit many years ago) Recent Foreign Travel: No Contact w/other who traveled: No Recent Hopitalizations: Yes Recent Infectious Disease Expo: No Immunizations Up To Date Tetanus Booster (TDap): Unknown Pediatric: No Date of Pneumonia Vaccine: Aug 21, 2009 Date of Influenza Vaccine: Apr 20, 2011 Surgeries Yes (R KNEE REPLACEMENT, hernia w/mesh placement Dr Jones ) Appendectomy, Gallbladder Respiratory No Cardiovascular Yes Chronic Edema/Swelling, High Cholesterol, Hypertension Neurological Yes Neuropathy Reproductive System Hx Reproductive Disorders: No Sexually Transmitted Disease: No HIV/AIDS: No Female Reproductive Disorders: Denies Gastrointestinal Yes (GERD) Gastroesophageal Reflux, Hiatal Hernia, Irritable Bowel Musculoskeletal Yes (ARTHRITIS) Degenerate Disk Disease, Chronic Back Pain Endocrine History of Endocrine Disorders: Yes Endocrine Disorders: Diabetes, Insulin dep, Hypothyroidsim HEENT HEENT Disorders: Cataract Loss of Vision: Denies Hearing Impairment: Denies Cancer No Psychosocial History of Psychiatric Problem: Yes Behavioral Health Disorders: Anxiety, Depression Integumentary History of Skin or Integumenta: Yes (bullous pemphigoid) Blood Transfusions History of Blood Disorders: No Family Medical History Significant Family History: No Pertinent Family Hx Family Hx: Cancer 03 MOTHER (STOMACH COLON ESOPHAGEAL) Cancer of colon 03 MOTHER 09 SISTER Family history: Cardiovascular disease 09 SISTER (HAS PACEMAKER) Family history: Diabetes mellitus 03 FATHER Myocardial infarction 03 FATHER No Family History of: Abdominal aortic aneurysm Levy's disease Alcoholism Aphasia Cataract Chest pain Congenital heart disease Congestive heart failure Cystic fibrosis Dementia Dysphagia Family history: Allergy Family history: Alzheimer's disease Family history: Arthritis Family history: Asthma Family history: Coronary thrombosis Family history: Gastrointestinal disease Family history: Glaucoma Family history: Hypertension Family history: Osteoporosis Family history: Thyroid disorder Headache Hearing loss Heart disease Hereditary disease History of - anemia History of - respiratory disease History of drug abuse Human immunodeficiency virus (HIV) seropositivity Hypercholesterolemia Infertile Kidney disease Malignant neoplasm of lung Parkinson's disease Prostate cancer Psychotic disorder Seizure disorder Stroke Tuberculosis Visual impairment Physical Exam Vital Signs Vital Signs - First Documented 05/06/19 05/06/19 11:47 13:41 Temp 38.2 Pulse 74 Resp 26 B/P (MAP) 122/108 (113) Pulse Ox 96 O2 Delivery Room Air O2 Flow Rate 2.00 Capillary Refill : Less Than 3 SecondsLess Than 3 Seconds Height, Weight, BMI Height: 5'2.00" Weight: 224lbs. 0.9oz. [id number]; 35.23 BMI Method:Stated General Appearance: Chronically ill, Obese Neck: Normal Inspection, Supple Respiratory: Lungs Clear, Normal Breath Sounds (snoring) Cardiovascular: Regular Rate, Rhythm, No Gallop, No Murmur, Normal Peripheral Pulses Gastrointestinal: Normal Bowel Sounds Extremity: No Pedal Edema Neurologic/Psychiatric: No Alert (asleep, would not wake) Skin: Warm/Dry Lymphatic: No Adenopathy Assessment/Plan Assessment and Plan Problems: (1) Altered mental status Status: Acute Qualifiers: Qualified Codes: R41.82 - Altered mental status, unspecified (2) Dehydration determined by examination (3) Hypoglycemia (4) Hyperglycemia (5) Diabetes (6) Neuropathy (7) Hypertension (8) Anxiety (9) Bullous pemphigoid (10) Hypokalemia Status: Acute Clinical Quality Measures DVT/VTE Risk/Contraindication: Risk Factor Score Per Nursin RFS Level Per Nursing on Admit: 4+=Very High TODD MCNAIR MED STUDENT May 07, 2019 07:27
[2019-05-07 08:00] VITALS: BP 116/66
[2019-05-07] MEDS: SENNA W/DOCUSATE (SENOKOT S) TABLET PO SCH (08:04)
[2019-05-07] MEDS ORDERED: MAGNESIUM 1 GM/100 ML IVPB 100 ML IV ONE ×2 (08:39→09:45)
[2019-05-07] MEDS ORDERED: POTASSIUM CL 10MEQ/50ML IVPB 50 ML IV ONE (08:39)
[2019-05-07] MEDS: POTASSIUM CL 10MEQ/50ML IVPB 50 ML IV SCH ×4 (08:42→13:32)
[2019-05-07 09:18] LABS: MAGNESIUM 1.1 MG/DL (1.6-2.4)
--- NOTE | 2019-05-07 09:18 | NUR ---
CRITICAL MAG CALLED TO DR. SORENSEN. 1.1.
[2019-05-07 09:30] LABS: ABG BASE EXCESS 4.7 MMOL/L (-2.5-2.5); ABG OXYGEN SATURATION 96 % (94-100); ABG PCO2 33 MMHG (35-45); ABG PH 7.53 (7.37-7.43); ABG PO2 75 MMHG (79-93); ABG TCO2 28.2 MMOL/L (21.0-31.0)
[2019-05-07 09:34] LABS: ALLENS TEST YES-POS
[2019-05-07 09:35] LABS: INSPIRED O2 21 L; VENTILATOR NO
[2019-05-07 09:36] LABS: PATIENT TEMP 38.5
--- NOTE | 2019-05-07 09:40 | Progress Note ---
Subjective Date Seen by a Provider: May 07, 2019 Time Seen by a Provider: 09:00 Subjective/Events-last exam Pt still in a very declined state Unsure if this is going to recover at the bedside and he is aware of the grave prognosis Labs appear to be stable Creatinine remains normal I did consult Dr. Harvey since it appears that the ITP is back Rocephin on board empirically Ammonia level is ordered ABG reviewed and that didn't show any significant hint on the source of her encephalopathy Very complicated medical problems for many years and it appears that everything has added up and this very well may be a process that she is experiencing Maintain on IV fluids and supportive care After rounds another visit at 1215: MRI could not provide meaningful data due to movement Patient aspirated after arriving to floor from lying flat for MRI I updated Dr Harvey on comfort care process Met with family with RN and updated on the fact that she has multi-system organ failure and no recovery potential and appears that is imminent Patient comatose currently Patient goode and ashen and unresponsive Daughter will call her siblings Review of Systems General: Fatigue Neurological: Confusion Focused Exam Lactate Level 05/06/19 12:13: Lactic Acid Level 2.68*H 05/06/19 14:31: Lactic Acid Level 2.03*H Objective Exam Last Set of Vital Signs Vital Signs Date Time Temp Pulse Resp B/P (MAP) Pulse Ox O2 Delivery O2 Flow Rate FiO2 05/07/19 08:00 38.6 71 24 116/66 (83) 96 Nasal Cannula 2.00 Capillary Refill : Less Than 3 SecondsLess Than 3 Seconds I&O Intake and Output 05/07/19 00:00 Intake Total 1060 ml Output Total 2600 ml Balance -1540 ml Intake Oral 0 ml IV Total 1060 ml Output Urine Total 2600 ml # Bowel Movements 1 Daily Weight Change Unsure Unsure General: Other (unresponsive, goode, ashen, extremely ill) Lungs: Other (apneic) Results Lab Laboratory Tests 05/06/19 11:50: White Blood Count 11.1H, Red Blood Count 4.98, Hemoglobin 14.6, Hematocrit 44, Mean Corpuscular Volume 88, Mean Corpuscular Hemoglobin 29, Mean Corpuscular Hemoglobin Concent 33, Red Cell Distribution Width 15.3H, Platelet Count 229, Mean Platelet Volume 10.7H, Neutrophils (%) (Auto) 81H, Lymphocytes (%) (Auto) 11L, Monocytes (%) (Auto) 7, Eosinophils (%) (Auto) 0, Basophils (%) (Auto) 0, Neutrophils # (Auto) 9.0H, Lymphocytes # (Auto) 1.3, Monocytes # (Auto) 0.8, Eosinophils # (Auto) 0.0, Basophils # (Auto) 0.1, Sodium Level 141, Potassium Level 2.5*L, Chloride Level 100, Carbon Dioxide Level 30, Anion Gap 11, Blood Urea Nitrogen 7, Creatinine 0.85, Estimat Glomerular Filtration Rate > 60, BUN/Creatinine Ratio 8, Glucose Level 110H, Calcium Level 8.8, Corrected Calcium 9.0, Total Bilirubin 0.3, Aspartate Amino Transf (AST/SGOT) 30, Alanine Aminotransferase (ALT/SGPT) 18, Alkaline Phosphatase 107, Troponin I 0.028, Total Protein 6.9, Albumin 3.8 05/06/19 11:59: Urine Color YELLOW, Urine Clarity CLEAR, Urine pH 6, Urine Specific [place] 1.010L, Urine Protein 3+H, Urine Glucose (UA) NEGATIVE, Urine Ketones NEGATIVE, Urine Nitrite NEGATIVE, Urine Bilirubin NEGATIVE, Urine Urobilinogen NORMAL, Urine Leukocyte Esterase NEGATIVE, Urine RBC (Auto) 2+H, Urine RBC 0-2, Urine WBC 0-2, Urine Squamous Epithelial Cells 2-5, Urine Crystals NONE, Urine Bacteria TRACE, Urine Casts PRESENT, Urine Hyaline Casts 0-2H, Urine Mucus SMALLH, Urine Culture Indicated NO 05/06/19 12:13: Glucometer 98, Lactic Acid Level 2.68*H 05/06/19 14:31: Lactic Acid Level 2.03*H, Prothrombin Time 13.9, INR Comment 1.0, Activated Partial Thromboplast Time 24, D-Dimer 1.60H 05/06/19 20:48: Glucometer 121H 05/07/19 03:55: White Blood Count 6.7, Red Blood Count 4.94, Hemoglobin 14.4, Hematocrit 43, Mean Corpuscular Volume 86, Mean Corpuscular Hemoglobin 29, Mean Corpuscular Hemoglobin Concent 34, Red Cell Distribution Width 15.3H, Platelet Count 40L, Mean Platelet Volume , Neutrophils (%) (Auto) 75, Lymphocytes (%) (Auto) 20, Monocytes (%) (Auto) 5, Eosinophils (%) (Auto) 0, Basophils (%) (Auto) 1, Neutrophils # (Auto) 5.0, Lymphocytes # (Auto) 1.3, Monocytes # (Auto) 0.3, Eosinophils # (Auto) 0.0, Basophils # (Auto) 0.0, Absolute Reticulocyte Count 46, Percent Reticulocyte Count 1.28, Sodium Level 134L, Potassium Level 3.3L, Chloride Level 93L, Carbon Dioxide Level 24, Anion Gap 17H, Blood Urea Nitrogen 5L, Creatinine 0.89, Estimat Glomerular Filtration Rate > 60, BUN/Creatinine Ratio 6, Glucose Level 269H, Calcium Level 7.6L, Corrected Calcium 8.2L, Magnesium Level 1.1*L, Total Bilirubin 0.6, Aspartate Amino Transf (AST/SGOT) 75H, Alanine Aminotransferase (ALT/SGPT) 32, Alkaline Phosphatase 80, Lactate Dehydrogenase 470H, Total Creatine Kinase 407H, Total Protein 6.3L, Albumin 3.3, Triglycerides Level 162H, Cholesterol Level 144, LDL Cholesterol Direct 75, VLDL Cholesterol 32, HDL Cholesterol 45 05/07/19 04:32: Glucometer 291H 05/07/19 09:18: Blood Gas Puncture Site RT RAD, Blood Gas Patient Temperature 38.5, Arterial Blood pH 7.53H, Arterial Blood Partial Pressure CO2 33L, Arterial Blood Partial Pressure O2 75L, Arterial Blood HCO3 27, Arterial Blood Total CO2 28.2, Arterial Blood Oxygen Saturation 96, Arterial Blood Base Excess 4.7H, Ace Test YES-POS, Blood Gas Ventilator Setting NO, Blood Gas Inspired Oxygen 21 L Microbiology 05/06/19 Influenza Types A,B Antigen ([place]ER) - Final, Complete Assessment/Plan Assessment/Plan Assess & Plan/Chief Complaint Assessment: Severe encephalopathy due to multiple and severe co-morbidities with severe dehydration unresponsive to aggressive treatment now showing signs of comatose and end os life status Plan: Comfort care protocol imminent Diagnosis/Problems Diagnosis/Problems (1) Altered mental status Status: Acute Qualifiers: Qualified Codes: R41.82 - Altered mental status, unspecified (2) Dehydration determined by examination (3) Hypoglycemia (4) Hyperglycemia (5) Diabetes (6) Neuropathy (7) Hypertension (8) Anxiety (9) Bullous pemphigoid (10) Hypokalemia Status: Acute Clinical Quality Measures DVT/VTE Risk/Contraindication: Risk Factor Score Per Nursin RFS Level Per Nursing on Admit: 4+=Very High JOY SORENSEN DO May 07, 2019 09:40
--- NOTE | 2019-05-07 10:00 | NUR ---
LARGE AMT PROJECTILE YELLOW/GOLD EMESIS ON RETURN FROM MRI ON MRI CART. APPEARS TO HAVE ASPIRATED. SUCTIONED WITH VERY LITTLE SUCTIONED OUT. DR. SORENSEN NOTIFIED.
--- NOTE | 2019-05-07 10:12 | Physical Therapy Progress Note ---
Therapy Progress Note Attempted PT eval. Nursing reports pt at MRI. Nurse reports pt is not responsive and to hold PT this date. Will recheck tomorrow. BALAJI BELLO PT May 07, 2019 10:12
[2019-05-07] MEDS ORDERED: MAGN1TAB31 PO (10:17)
[2019-05-07] MEDS ORDERED: CALC-6 PO (10:17)
[2019-05-07] MEDS ORDERED: GUAI600T43 PO (10:17)
[2019-05-07] MEDS ORDERED: GABA-488 PO (10:17)
[2019-05-07] MEDS ORDERED: INSU100I29 SC (10:17)
[2019-05-07] MEDS ORDERED: MULT1TAB69 PO (10:17)
[2019-05-07] MEDS ORDERED: FEXO-46 PO (10:17)
[2019-05-07] MEDS ORDERED: ASPI-816 PO (10:17)
[2019-05-07] MEDS ORDERED: LOPE2TAB34 PO (10:17)
--- NOTE | 2019-05-07 10:27 | Diagnostic Imaging Report ---
PROCEDURE: MR imaging of the brain without contrast. TECHNIQUE: Multiplanar, multisequence MR imaging of the brain was performed without contrast. INDICATION: Confusion and unresponsiveness. Correlation is made with the CT brain study from one day earlier. Study is severely limited due to patient motion. Only abbreviated exam could be performed. Diffusion and T2-weighted axial images were obtained. T1-weighted images are severely limited by motion. No diffusion restriction is seen to suggest acute ischemia. The normal spectral flow voids in the carotid siphons are seen. There are periventricular white matter changes noted consistent with senescent change. No midline shift is detected. No definite hemorrhage is seen. IMPRESSION: Significantly limited study due to patient motion. No acute features detected. Dictated by: Dictated on workstation # [id number]
--- NOTE | 2019-05-07 10:30 | Progress Note ---
TODD MCNAIR MED STUDENT 05/07/19 1030: Progress Note CC: Altered mental status after fall * HPI: Ms. Fry was found on the floor in the metal mockup maker by her . She had been there for an uncertain amount of time, estimates around 30 minutes. She had altered mental status, was awake but would not respond to . Found to be severely dehydrated. UA showed no infection, CXR was negative for source of infection and noted only mild central vascular prominence, CT showed no skull fracture, no evidence of acute intracranial process. MRI was significantly limited study due to patient motion, reports that no acute features detected. * ROS: not able to wake patient * PE: * Patient is asleep, will wake momentarily at times to her name, but will fall asleep and not respond to questions. * Normal inspection of neck, no masses noted, no lymphadenopathy. * Lungs CTAB bilaterally, snoring may have * Heart auscultated, RRR, no murmurs, gallops, clicks noted * Normal bowel sounds on auscultation * Pedal pulses 2+ bilaterally, mild edema bilaterally. Dermatitis noted on bilateral legs and feet. * Differential diagnosis: * Dehydration * TBI * Subdural hematoma * Hyperglycemic hyperosmolar state * Hypokalemia * Hyponatremia * Hypomagnesemia * Hypocalcemia * Viral encephalitis * Myxedema coma * Hemorrhagic stroke * Ischemic stroke * Pneumonia * Seizure * Ana encephalitis * Vasovagal syncope * Orthostatic syncope * Cardiac arrhythmia * Factitious Hypoglycemia * Exogenous hyperthyroidism * Clonidine overdose * Brain tumor * Obstructive hydrocephalus TRESSA SORENSEN DO 05/07/19 1702: Supervisory-Addendum Brief Verification & Attestation Participated in pt care: history, MDM, physical Personally performed: exam, history, MDM, supervision of care Care discussed with: Medical Student Procedures: n/a Results interpretation: Verified all documentation Verification and Attestation of Medical Student E/M Service A medical student performed and documented this service in my presence. I reviewed and verified all information documented by the medical student and made modifications to such information, when appropriate. I personally performed the physical exam and medical decision making. Tressa Sorensen, May 07, 2019,17:02 TODD MCNAIR MED STUDENT May 07, 2019 10:30 TRESSA SORENSEN DO May 07, 2019 17:02
--- NOTE | 2019-05-07 10:37 | Occ Therapy Progress Note ---
Therapy Progress Note Order received for OT eval and treat. Chart review completed. Attempted evaluation at 1010. Pt at MRI. RN requests to hold therapy this date as pt is not alert and is unable to participate. Will continue to follow and initiate therapy as indicated. JOVI ANTUNEZ OT May 07, 2019 10:37
--- NOTE | 2019-05-07 11:24 | NUR ---
Pt is sleeping. confirms she is Oriental Orthodox and would probably like Communion when awake.
[2019-05-07 12:00] VITALS: BP 158/63
--- NOTE | 2019-05-07 12:15 | NUR ---
DR. SORENSEN HERE TO SEE PT AND SPEAK TO AND DAUGHTER CAROL. PT LESS RESPONSIVE AND LUNGS COARSE. FAMILY HAS DECIDED TO AGREE WITH DR. SORENSEN AND TO INITIATE COMFORT CARE. COMFORT CARE ORDERS PLACED BY DR. SORENSEN.
[2019-05-07] MEDS ORDERED: GLYCOPYRROLATE 0.2 MG/ML (ROBINUL) 2 ML VIAL IV PRN (12:30)
[2019-05-07] MEDS ORDERED: ARTIFICAL TEARS 0.4 ML UNIT DOSE (REFRESH PLUS) OU PRN (12:30)
[2019-05-07] MEDS ORDERED: SALIVA STIMULANT MOUTH SPRAY (BIOTENE) 1.5 OZ MM PRN (12:30)
[2019-05-07] MEDS ORDERED: LORazepam INJ 2 MG/ML (ATIVAN) VIAL IVP PRN (12:30)
[2019-05-07] MEDS ORDERED: fentaNYL INJECTION 100 MCG/2 ML AMP IVP PRN (12:45)
[2019-05-07] MEDS ORDERED: POTASSIUM CL 10MEQ/50ML IVPB 50 ML IV SCH (13:30)
--- NOTE | 2019-05-07 14:04 | NUR ---
IRF Evaluation Order received to evaluate patient for the ARU; however, evaluation discontinued as patient is now receiving comfort care. Thank you for this referral.
--- NOTE | 2019-05-07 14:20 | NUR ---
FENTANYL 50MG IV FOR PAIN PER FAMILY REQUEST. OPENS EYES, BUT NO OTHER RESPONSE NOTED.
--- NOTE | 2019-05-07 14:20 | NUR ---
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 I contacted local [place] and they were able to contact low altitude air defense gunner who called pts son, will be out this evening, I offered support and prayer.
[2019-05-07] MEDS ORDERED: NS IV 1000 ML 1,000 ML ONE (15:00)
--- NOTE | 2019-05-07 15:00 | NUR ---
LARGE AMOUNT OF FAMILY AT BEDSIDE. REQUESTING THAT IVF BE RESTARTED ON PT. DR. HUANG NOW CLOUD ENGAGEMENT PARTNER FOR DR. SORENSEN AND NOTIFIED. IVF RESUMED, NS @ 75 CC/HR. HAS SET A TIME FOR FAMILY MEETING FOR 05/08/19 AT 0900.
[2019-05-07] MEDS: NS IV 1000 ML 1,000 ML IV SCH (15:51)
[2019-05-07] MEDS ORDERED: PIPERACILLIN/TAZOBACTAM 4.5 GM in NS (IVPB) 100 ML IV NR (17:00)
[2019-05-07] MEDS ORDERED: BISACODYL 10 MG SUPP (DULCOLAX) PR PRN (17:00)
[2019-05-07] MEDS ORDERED: POLYETHYLENE GLYCOL 17 GM (MIRALAX) PACK PO PRN (17:00)
--- NOTE | 2019-05-07 17:09 | Progress Note - Hospitalist ---
Progress Note Addendum Progress Notes/Assess & Plan Date Seen 05/07/19 Time Seen by Provider: 16:58 Diagonsis/Assessment & Plan Acute encephalopathy SIRS Hypokalemia Hypomagnesemia Lactic acidosis Type 2 diabetes mellitus with hyperglycemia -CT Head without acute abnormality -MRI unrevealing, limited by motion -Lab workup revealed electrolyte abnormalities -XR without cardiopulmonary abnormalities -Blood cultures with no growth -UA without signs of UTI Physical exam: General: ill-appearing, dusky appearance, lethargic, responded to sternal rub th en voice, followed commands HEENT: NCAT, PERRL, dry mucous membranes Neck: supple, no lymphadenopathy Heart: regular rate and rhythm, no murmurs Lungs: decreased breath sounds bilaterally Abdomen: soft, nontender, distended, hypoactive bowel sounds Extremities: 1+ pedal edema Skin: warm and dry Neuro: lethargic, minimally responsive, squeezed fingers with left hand on command Many family members arrived this afternoon. After a long discussion among family (, sons, and daughter), they came to the agreement to continue aggressive care. I was called by DAVID Cartwright and notified of the decision. I came in to have a discussion with the family. After discussing her underlying health problems and current state of health, they chose to discontinue comfort measures only status and pursue more aggressive cares. We discussed that at this time we can treat her with IV fluids, empiric antibiotics, and electrolyte replacement. They would like her to remain a DO NOT RESUSCITATE. If there is no improvement in her clinical status over the next 24-48 hours, we made the plan to revisit her plan of care. All questions were answered and everyone was in agreement with the plan. CHOLO HUANG MD May 07, 2019 17:09
[2019-05-07] MEDS ORDERED: hydrALAZINE (APESOLINE) 20 MG/ML VIAL IV PRN (17:15)
[2019-05-07 17:25] VITALS: BP 143/67
[2019-05-07 17:26] LABS: BASOPHILS % (AUTO) 0 % (0-10); EOSINOPHILS % (AUTO) 0 % (0-10); HEMATOCRIT 40 % (35-52); HEMOGLOBIN 13.5 G/DL (11.5-16.0); LYMPHOCYTES # (AUTO) 1.4 X 10^3 (1.0-4.0); LYMPHOCYTES % (AUTO) 15 % (12-44); MEAN CORPUSCULAR HEMOGLOBIN 29 PG (25-34); MEAN CORPUSCULAR HGB CONC 34 G/DL (32-36); MEAN CORPUSCULAR VOLUME 87 FL (80-99); MEAN PLATELET VOLUME 11.3 FL (7.4-10.4); MONOCYTES # (AUTO) 0.8 X 10^3 (0.0-1.0); MONOCYTES % (AUTO) 8 % (0-12); NEUTROPHILS % (AUTO) 76 % (42-75); PLATELET COUNT 164 10^3/uL (130-400); RED CELL DISTRIBUTION WIDTH 15.2 % (10.0-14.5); WHITE BLOOD COUNT 9.2 10^3/uL (4.3-11.0)
[2019-05-07 17:45] LABS: ALANINE AMINOTRANSFERASE 34 U/L (0-55); ALBUMIN 3.2 GM/DL (3.2-4.5); ALKALINE PHOSPHATASE 69 U/L (40-136); BILIRUBIN,TOTAL 0.8 MG/DL (0.1-1.0); BUN/CREATININE RATIO 9; CALCIUM 7.5 MG/DL (8.5-10.1); CARBON DIOXIDE 25 MMOL/L (21-32); CHLORIDE 94 MMOL/L (98-107); CREATININE SERUM 0.88 MG/DL (0.60-1.30); GFR ESTIMATED > 60; GLUCOSE 278 MG/DL (70-105); MAGNESIUM 1.7 MG/DL (1.6-2.4); PHOSPHORUS 1.6 MG/DL (2.3-4.7); SODIUM 134 MMOL/L (135-145)
--- NOTE | 2019-05-07 17:47 | NUR ---
TRANSFERRED TO ROOM 421 ROOM IS LARGER FOR EXTENDED FAMILY.
[2019-05-07] MEDS ORDERED: SODIUM PHOSPHATE INJ 15 MM in D5W 100 ML IVPB 100 ML IV ONE (18:00)
--- NOTE | 2019-05-07 18:50 | NUR ---
ZOSYN INFUSING. RESTING WITH FAMILY AT BEDSIDE. SNORING RESPIRATIONS AND OFFERS NO RESPONSE TO VERBAL. EYES REMAIN CLOSED.
[2019-05-07 19:37] VITALS: BP 185/78
[2019-05-07] MEDS: ENOXAPARIN 40 MG/0.4 ML (LOVENOX) SYR SC SCH (20:41)
[2019-05-07] MEDS: DOCUSATE SODIUM 100 MG (COLACE) CAP PO SCH (20:41)
[2019-05-07] MEDS: MAGNESIUM 1 GM/100 ML IVPB 100 ML IV SCH ×2 (21:51→22:55)
[2019-05-07] MEDS: PIPERACILLIN/TAZOBACTAM (BULK) 4.5 GM in NS (IVPB) 100 ML IV SCH (22:50)
[2019-05-08] MEDS: POTASSIUM CL 10MEQ/50ML IVPB 50 ML IV SCH ×14 (00:05→15:57)
[2019-05-08 00:47] VITALS: BP 145/71
[2019-05-08 04:07] VITALS: BP 148/73
[2019-05-08] MEDS: NS IV 1000 ML 1,000 ML IV SCH ×2 (04:45→13:32)
[2019-05-08 06:06] LABS: BASOPHILS % (AUTO) 0 % (0-10); EOSINOPHILS % (AUTO) 0 % (0-10); HEMATOCRIT 39 % (35-52); HEMOGLOBIN 12.8 G/DL (11.5-16.0); LYMPHOCYTES % (AUTO) 7 % (12-44); MEAN CORPUSCULAR HEMOGLOBIN 29 PG (25-34); MEAN CORPUSCULAR HGB CONC 33 G/DL (32-36); MEAN CORPUSCULAR VOLUME 88 FL (80-99); MEAN PLATELET VOLUME 11.4 FL (7.4-10.4); MONOCYTES # (AUTO) 0.8 X 10^3 (0.0-1.0); MONOCYTES % (AUTO) 6 % (0-12); NEUTROPHILS # (AUTO) 11.1 X 10^3 (1.8-7.8); NEUTROPHILS % (AUTO) 87 % (42-75); PLATELET COUNT 157 10^3/uL (130-400); RED CELL DISTRIBUTION WIDTH 15.3 % (10.0-14.5); WHITE BLOOD COUNT 12.9 10^3/uL (4.3-11.0)
[2019-05-08 06:26] LABS: MAGNESIUM 2.1 MG/DL (1.6-2.4)
[2019-05-08] MEDS: inSUlin ASPART (NovoLOG) 1 UNIT/0.01 ML (CHARGE PER UNIT) SC SCH ×4 (06:27→20:59)
[2019-05-08] MEDS: PIPERACILLIN/TAZOBACTAM (BULK) 4.5 GM in NS (IVPB) 100 ML IV SCH ×3 (06:27→23:34)
[2019-05-08 06:28] LABS: POTASSIUM 2.5 MMOL/L (3.6-5.0)
--- NOTE | 2019-05-08 06:37 | NUR ---
DR HUANG NOTIFIED OF CRITICAL POTASSIUM AND UPDATED THAT PATIENT IS STILL RECEIVING ORDERED POTASSIUM INFUSIONS, 4 BAGS REMAIN. NNO.
[2019-05-08] MEDS ORDERED: CALCIUM GLUCONATE 10% INJ 4.65 MEQ in NS (IVPB) 50 ML IV ONE (07:30)
[2019-05-08 08:00] VITALS: BP 141/61
[2019-05-08] MEDS ORDERED: MAGNESIUM 1 GM/100 ML IVPB 100 ML IV ONE (08:30)
[2019-05-08] MEDS: DOCUSATE SODIUM 100 MG (COLACE) CAP PO SCH ×2 (09:26→20:43)
[2019-05-08] MEDS ORDERED: ASPIRIN E.C. 81 MG (ECOTRIN) TAB PO ONE (11:15)
[2019-05-08 11:42] LABS: ABSOLUTE RETIC # 56 10e9/L (24-90); RETICULOCYTE % 1.26 % (0.50-2.40)
[2019-05-08 12:00] VITALS: BP 125/67
--- NOTE | 2019-05-08 13:32 | Physical Therapy Evaluation ---
PT Evaluation-General Medical Diagnosis Admission Date May 06, 2019 at 14:10 Medical Diagnosis: severe dehydration, severe confusion Onset Date: May 06, 2019 Therapy Diagnosis Therapy Diagnosis: debility Height/Weight Height (Feet): 5 Height (Inches): 2.00 Weight (Pounds): 224 Weight (Ounces): 0.9 Precautions Precautions/Isolations: Fall Prevention, Standard Precautions Referral Physician: Judie Reason for Referral: Evaluation/Treatment Referral Comments ther ex Medical History Pertinent Medical History: DM, GERD, HTN, Hypothroidism Additional Medical History chronic abdominal pain-narcotics dependent, severe neuropathy with Charcot foot, chronic edema, high cholesterol, hiatal hernia, IBS, DDD, anxiety, depression, bullous pemphigoid Current History Pt found down on floor. To ER with severe dehydration, confusion. Reviewed History: Yes Social History Home: Single Level Current Living Status: Spouse Entry Into Home: Stairs With Railing PT Steps Into Home: 1 Prior Prior Level of Function SCALE: Activities may be completed with or without assistive devices. 1-Vqkaerkqws-hdtvkde completes the activity by him/herself with no assistance from a helper. 5-Set-up or Clean-up Assistance-helper sets up or cleans up; patient completes activity. Brantley assists only prior to or following the activity. 4-Supervision or Touching Assistance-helper provides verbal cues and/or touching/steadying and/or contact guard assistance as patient completes a ctivity. Assistance may be provided throughout the activity or intermittently. 3-Partial/Moderate Assistance-helper does LESS THAN HALF the effort. Brantley lifts, holds or supports trunk or limbs, but provides less than half the effort. 2-Substantial/Maximal Assistance-helper does MORE THAN HALF the effort. Brantley lifts or holds trunk or limbs and provides more than half the effort. 5-Cpusbilab-wnetsm does ALL the effort. Patient does none of the effort to complete the activity. Or, the assistance of 2 or more helpers is required for the patient to complete the activity. If activity was not attempted, code reason: 7-Patient Refused. 9-Not Applicable-not attempted and the patient did not perform the activity before the current illness, exacerbation or injury. 10-Not Attempted due to Environmental Limitations-(lack of equipment, weather restraints, etc.). 88-Not Attempted due to Medical Conditions or Safety Concerns. Bed Mobility: 6 Transfers (B,C,W/C): 6 Gait: 6 Stairs: 6 Indoor Mobility (Ambulation): Independent Stairs: Independent Prior Devices Use: Other-see list below Prior Device Use: SPC PLOF information provided by family. PT Evaluation-Current Subjective Pt in bed, multiple family in room. History obtained from family as Pt did not speak to PT. Pt did nod yes and no occasionally in response to daughter, no response to PT. No purposeful command following this date. Pt/Family Goals At this time, family requested ROM in bed and to attempt further mobility if command following improves. Objective Patient Orientation: Unable to Assess Attachments: Oxygen, Forbes Catheter ROM/Strength ROM Upper Extremities See OT ROM Lower Extremities Pt actively resisting PROM at times. Grossly able to achieve 80-90 degrees of hip and knee flexion (B), DF ROM to neutral. Strength Upper Extremities See OT Strength Lower Extremities No purposeful movement demonstrated while PT in room, no command following this date to formally assess. Integumentary/Posture Integumentary See nurses' notes Bladder Incontinence: Forbes Cath Transfers Not attempted this date as Pt made no active movement in trunk or LE while PT in room and was not following commands. Treatment Evaluation to assess ROM and command following. No transfers attempted this date due to limited to no AROM and no command following. Pt in bed with all needs met, family present. Assessment/Needs Pt with no command following and very limited to no AROM demonstrated in (B) LE this date. PROM grossly WFL for transfers but Pt actively resisting at times. Pt may benefit from skilled PT if cognition, command following improve, continue to monitor. Rehab Potential: Poor PT Short Term Goals Short Term Goals Time Frame: May 15, 2019 Additional Short Term Goals Pt will follow commands to perform LE exercise in bed and allow beginning transfer training. PT Chcf Goals Chcf Goals PT Chcf Goals Time Frame: Jun 05, 2019 Sit to Lying (QC): 3 Lying-Sitting on Side/Bed(QC): 3 Sit to Stand (QC): 2 Roll Left to Right (QC): 4 Chair/Bhp-yy-Wnaar Xfer(QC): 3 Does the Patient Walk: No and Walking Goal IS indicated Distance: 50 Walk 10 feet (QC): 4 Walk 50ft with 2 Turns (QC): 4 Gait Level of Assist: 5 Gait Assistive Device: FWW PT goals established to allow household mobility with family assist. PT Plan Problem List Problem List: Activity Tolerance, Functional Strength, Safety, Balance, Gait, Transfer, Bed Mobility, ROM Treatment/Plan Treatment Plan: Continue Plan of Care Treatment Plan: Bed Mobility, Education, Functional Activity Jaida, Functional Strength, Gait, Safety, Therapeutic Exercise, Transfers Treatment Duration: Jun 05, 2019 Frequency: 6 times per week Estimated Hrs Per Day: .25 hour per day Patient and/or Family Agrees t: Yes Safety Risks/Education Teaching Recipient: Family Teaching Methods: Discussion Response to Teaching: Verbalize Understanding Role of rn radiology intervention, progression of PT POC as Pt participation improves. Role of family/nursing for PROM activities. Discharge Recommendations Target Placement Continue to assess as Pt cognition/participation improves. Time/GCodes Time In: 1219 Time Out: 1244 Total Billed Treatment Time: 25 Total Billed Treatment 1, ISRA[place] x 25' ANATOLIY VILLEGAS DPEliu May 08, 2019 13:32
[2019-05-08 13:38] LABS: BAND NEUTROPHILS 3 %; LYMPHOCYTES % (MANUAL) 5 %; MONOCYTES % (MANUAL) 4 %; NEUTROPHILS % (MANUAL) 88 %
[2019-05-08 13:51] LABS: ANISOCYTOSIS SLIGHT; PLATELET ESTIMATE 189; POIKILOCYTOSIS SLIGHT; SPHEROCYTES SLIGHT; TOXIC GRANULATION/VACUOLAZATIO 1+
[2019-05-08 16:11] VITALS: BP 124/63
--- NOTE | 2019-05-08 16:38 | Progress Note - Hospitalist ---
Subjective HPI/CC On Admission Date Seen by Provider: May 08, 2019 Time Seen by Provider: 09:30 altered mental status Subjective/Events-last exam She is awake and alert this morning. She is speaking but using inappropriate words. She is able to squeeze my fingers on command. She does not follow any ot her commands. Focused Exam Lactate Level 05/06/19 12:13: Lactic Acid Level 2.68*H 05/06/19 14:31: Lactic Acid Level 2.03*H Objective Exam Vital Signs Vital Signs Date Time Temp Pulse Resp B/P (MAP) Pulse Ox O2 Delivery O2 Flow Rate FiO2 05/08/19 16:11 37.2 54 18 124/63 (83) 94 Nasal Cannula 2.00 Capillary Refill : Less Than 3 SecondsLess Than 3 Seconds General Appearance: No Apparent Distress, WD/WN, Obese HEENT: PERRL/EOMI, Pharynx Normal, Moist Mucous Membranes Neck: Normal Inspection, Supple; No Carotid Bruit Respiratory: Lungs Clear, Normal Breath Sounds, No Respiratory Distress Cardiovascular: Regular Rate, Rhythm, No Edema Gastrointestinal: Normal Bowel Sounds, Soft Extremity: Normal Inspection, No Pedal Edema Neurologic/Psychiatric: Alert, Other (dysphasia, inconsistently following commands) Skin: Normal Color, Warm/Dry Results/Procedures Lab Laboratory Tests 05/07/19 17:10 05/08/19 05:35 Patient resulted labs reviewed. Imaging: Reviewed Imaging Report Assessment/Plan Assessment and Plan Assess & Plan/Chief Complaint Acute encephalopathy Likely acute ischemic stroke SIRS Hypokalemia Hypomagnesemia Hypophosphatemia Hypocalcemia Lactic acidosis HTN Type 2 diabetes mellitus with hyperglycemia -Consider repeating CT head tomorrow to reevaluate for stroke -Begin ASA and Lipitor -Echo ordered for Friday -Carotid dopplers ordered for Friday -Hydralazine as needed for SBP >180 -Continue to monitor and replace electrolytes as needed -Continue Zosyn, no infectious source identified to this point -Tolerating pureed diet with thick liquids, no need for NG tube at this time -Continue sliding scale insulin Diagnosis/Problems Diagnosis/Problems (1) Acute encephalopathy Status: Acute (2) Hypomagnesemia Status: Acute (3) Hypocalcemia Status: Acute (4) Hypophosphatemia Status: Acute (5) SIRS (systemic inflammatory response syndrome) Status: Acute (6) Hypertension Status: Chronic (7) Diabetes mellitus Status: Chronic Qualifiers: Diabetes mellitus type: type 2 (8) Hypokalemia Status: Acute Clinical Quality Measures DVT/VTE Risk/Contraindication: Risk Factor Score Per Nursin RFS Level Per Nursing on Admit: 4+=Very High CHOLO HUANG MD May 08, 2019 16:38
[2019-05-08 19:38] VITALS: BP 117/58
[2019-05-08] MEDS: GABAPENTIN 300 MG (NEURONTIN) CAP PO SCH (20:57)
[2019-05-08] MEDS: TOLTERODINE LA 4 MG (DETROL) CAP PO SCH (20:58)
[2019-05-08] MEDS: ENOXAPARIN 40 MG/0.4 ML (LOVENOX) SYR SC SCH (20:58)
--- NOTE | 2019-05-08 23:21 | NUR ---
2314-pt is having loose watery stools-pt requesting that she have a medication to stop these stools dr. noguera notified this rn received order to do c-diff stool specimen 2320-this rn spoke with pt regarding this order-pt agrees & states he understands this plan.
[2019-05-09] VITALS: BP 128/62
[2019-05-09] MEDS: inSUlin ASPART (NovoLOG) 1 UNIT/0.01 ML (CHARGE PER UNIT) SC SCH ×6 (00:59→21:52)
--- NOTE | 2019-05-09 01:01 | NUR ---
0040-this rn received a call from [facility] reporting that pt hr was 40-43 & is staying in the mid to lower 40s. pt resting with eyes closed, respirations even & not labored, no distress noted. family resting at bedside. 0043-this rn contacted dr. noguera to inform him of this change, as pt heart rate has been in the 50's & 60's per minute-no new orders just to continue to monitor pt.
--- NOTE | 2019-05-09 02:28 | NUR ---
PT CALLED STAFF IN TO ROOM TO INFORM THIS RN THAT PT HAD PULLED OUT HER SL IN THE RIGHT AC, PT HAD PLACED THE SL IN THE SHARPS CONTAINER & USED A GAUZE PAD TO STOP THE BLEEDING.
[2019-05-09 04:00] VITALS: BP 125/85
[2019-05-09] MEDS: PIPERACILLIN/TAZOBACTAM (BULK) 4.5 GM in NS (IVPB) 100 ML IV SCH ×3 (06:31→23:10)
[2019-05-09] MEDS: NS IV 1000 ML 1,000 ML IV SCH ×2 (06:31→20:58)
[2019-05-09] MEDS: LEVOTHYROXINE 75 MCG (LEVOTHROID) TABLET PO SCH (06:31)
[2019-05-09 06:36] LABS: BASOPHILS % (AUTO) 1 % (0-10); EOSINOPHILS # (AUTO) 0.2 10^3/uL (0.0-0.3); EOSINOPHILS % (AUTO) 2 % (0-10); HEMATOCRIT 38 % (35-52); HEMOGLOBIN 12.3 G/DL (11.5-16.0); LYMPHOCYTES # (AUTO) 1.3 X 10^3 (1.0-4.0); LYMPHOCYTES % (AUTO) 16 % (12-44); MEAN CORPUSCULAR HEMOGLOBIN 29 PG (25-34); MEAN CORPUSCULAR HGB CONC 32 G/DL (32-36); MEAN CORPUSCULAR VOLUME 89 FL (80-99); MEAN PLATELET VOLUME 11.2 FL (7.4-10.4); MONOCYTES # (AUTO) 0.7 X 10^3 (0.0-1.0); MONOCYTES % (AUTO) 8 % (0-12); NEUTROPHILS % (AUTO) 73 % (42-75); PLATELET COUNT 142 10^3/uL (130-400); RED CELL DISTRIBUTION WIDTH 15.8 % (10.0-14.5); WHITE BLOOD COUNT 8.2 10^3/uL (4.3-11.0)
[2019-05-09 07:05] LABS: BUN/CREATININE RATIO 10; CALCIUM 7.2 MG/DL (8.5-10.1); CARBON DIOXIDE 25 MMOL/L (21-32); CHLORIDE 105 MMOL/L (98-107); CREATININE SERUM 0.82 MG/DL (0.60-1.30); GFR ESTIMATED > 60; GLUCOSE 164 MG/DL (70-105); MAGNESIUM 2.1 MG/DL (1.6-2.4); PHOSPHORUS 1.2 MG/DL (2.3-4.7); POTASSIUM 2.6 MMOL/L (3.6-5.0); SODIUM 138 MMOL/L (135-145)
[2019-05-09 08:00] VITALS: BP 144/86
[2019-05-09] MEDS ORDERED: SODIUM PHOSPHATE INJ 30 MM in NS (IVPB) 250 ML IV ONE (08:00)
[2019-05-09] MEDS: DOCUSATE SODIUM 100 MG (COLACE) CAP PO SCH ×2 (08:26→21:51)
[2019-05-09] MEDS: ASPIRIN E.C. 81 MG (ECOTRIN) TAB PO SCH (08:37)
[2019-05-09] MEDS: PANTOPRAZOLE 40 MG (PROTONIX) TAB PO SCH (08:37)
[2019-05-09] MEDS: GABAPENTIN 300 MG (NEURONTIN) CAP PO SCH ×3 (08:37→21:51)
[2019-05-09] MEDS: amLODIPine 10 MG (NORVASC) TAB PO SCH (08:38)
[2019-05-09] MEDS: POTASSIUM CL 10MEQ/50ML IVPB 50 ML IV SCH ×4 (09:17→12:17)
[2019-05-09 12:00] VITALS: BP 134/80
[2019-05-09] MEDS: MENTHOL/ZINC OXIDE (CALMOSEPTINE) 113 GM TUBE TOP SCH ×2 (12:30→21:52)
--- NOTE | 2019-05-09 13:49 | NUR ---
PT LEFT FLOOR TO CT VIA STRETCHER ACCOMPANIED BY CT STAFF AND ELISSA ZAPATA. O2 AT 2L NC. THIS RN WILL AWAIT PT RETURN.
--- NOTE | 2019-05-09 14:04 | Diagnostic Imaging Report ---
EXAMINATION: CT head without contrast. TECHNIQUE: Multiple contiguous axial images were obtained through the brain without the use of intravenous contrast. All CT scans use one or more of the following dose optimizing techniques: automated exposure control, MA and/or KvP adjustment based on a patient size and exam type, or iterative reconstruction. HISTORY: Strokelike symptoms COMPARISON: 05/06/2019 FINDINGS: The goode-white matter differentiation is normal. No mass effect or midline shift. There is age related cerebral atrophy with ex vacuo dilation of the ventricles. Basilar cisterns are patent. There are no intra- or extra-axial fluid collections. There is no intracranial hemorrhage. There have been bilateral lens replacements. Paranasal sinuses are normal. Mastoid air cells are clear. No soft tissue abnormality is seen. No osseus lesions or fractures are seen. IMPRESSION: 1. No acute intracranial abnormality. Dictated by: Dictated on workstation # [id number]
--- NOTE | 2019-05-09 14:10 | NUR ---
PT TO ROOM 421 VIA STRETCHER ACCOMPANIED BY STAFF.
[2019-05-09 16:00] VITALS: BP 131/62
--- NOTE | 2019-05-09 16:53 | Progress Note - Hospitalist ---
Subjective HPI/CC On Admission Date Seen by Provider: May 09, 2019 Time Seen by Provider: 12:00 altered mental status Subjective/Events-last exam She is awake and able to say some appropriate words today. Upon my arrival, she says "hi". She is unable to answer some of my questions. She is able to r espond by nodding her head yes and no. She denies having any pain. She denies any dyspnea. She denies any abdominal pain or nausea. She nods yes that she is having trouble finding the right words to say. Focused Exam Lactate Level 05/09/19 06:20: Lactic Acid Level 1.48 Objective Exam Vital Signs Vital Signs Date Time Temp Pulse Resp B/P (MAP) Pulse Ox O2 Delivery O2 Flow Rate FiO2 05/09/19 16:00 36.8 49 22 131/62 (85) 97 Nasal Cannula 3.00 Capillary Refill : Less Than 3 SecondsLess Than 3 Seconds General Appearance: No Apparent Distress, WD/WN, Chronically ill HEENT: PERRL/EOMI, Moist Mucous Membranes Respiratory: Lungs Clear, Normal Breath Sounds, No Respiratory Distress Cardiovascular: Regular Rate, Rhythm, No Edema, No Murmur Gastrointestinal: Normal Bowel Sounds, Non Tender, Soft Extremity: Normal Inspection, Non Tender, No Pedal Edema Neurologic/Psychiatric: Alert, Disoriented, Facial Droop, Motor Weakness, Other (Dysphasia) Skin: Normal Color, Warm/Dry Results/Procedures Lab Laboratory Tests 05/09/19 06:20 Patient resulted labs reviewed. Imaging: Reviewed Imaging Films, Reviewed Imaging Report Assessment/Plan Assessment and Plan Assess & Plan/Chief Complaint Acute encephalopathy Likely acute ischemic stroke SIRS Hypokalemia Hypomagnesemia Hypophosphatemia Hypocalcemia Lactic acidosis HTN Type 2 diabetes mellitus with hyperglycemia -Repeat head CT today, family reports she would be unable to undergo MRI due to claustrophobia -Continue ASA and Lipitor -Echo ordered for Friday -Carotid dopplers ordered for Friday -Hydralazine as needed for SBP >180 -Continue to monitor and replace electrolytes as needed -Continue Zosyn, no infectious source identified to this time -Continue pured diet -Continue sliding scale insulin Diagnosis/Problems Diagnosis/Problems (1) Acute encephalopathy Status: Acute (2) Hypomagnesemia Status: Resolved Resolution Date/Time: 05/09/19 @ 16:52 (3) Hypocalcemia Status: Acute (4) Hypophosphatemia Status: Acute (5) SIRS (systemic inflammatory response syndrome) Status: Acute (6) Hypertension Status: Chronic (7) Diabetes mellitus Status: Chronic Qualifiers: Diabetes mellitus type: type 2 (8) Hypokalemia Status: Acute Clinical Quality Measures DVT/VTE Risk/Contraindication: Risk Factor Score Per Nursin RFS Level Per Nursing on Admit: 4+=Very High CHOLO HUANG MD May 09, 2019 16:52
[2019-05-09] MEDS: ENOXAPARIN 40 MG/0.4 ML (LOVENOX) SYR SC SCH (17:45)
[2019-05-09 20:00] VITALS: BP 136/64
[2019-05-09] MEDS: TOLTERODINE LA 4 MG (DETROL) CAP PO SCH (21:51)
[2019-05-10] VITALS (7 sets, daily range): BP systolic 126–163; BP diastolic 58–80
[2019-05-10] MEDS: inSUlin ASPART (NovoLOG) 1 UNIT/0.01 ML (CHARGE PER UNIT) SC SCH ×6 (00:19→20:00)
[2019-05-10] MEDS: LEVOTHYROXINE 75 MCG (LEVOTHROID) TABLET PO SCH (07:04)
[2019-05-10] MEDS: PIPERACILLIN/TAZOBACTAM (BULK) 4.5 GM in NS (IVPB) 100 ML IV SCH ×2 (07:04→16:03)
[2019-05-10] MEDS: DOCUSATE SODIUM 100 MG (COLACE) CAP PO SCH ×2 (09:35→21:20)
[2019-05-10] MEDS: GABAPENTIN 300 MG (NEURONTIN) CAP PO SCH ×3 (09:37→21:00)
[2019-05-10] MEDS: ASPIRIN E.C. 81 MG (ECOTRIN) TAB PO SCH (09:37)
[2019-05-10] MEDS: amLODIPine 10 MG (NORVASC) TAB PO SCH (09:37)
[2019-05-10] MEDS: PANTOPRAZOLE 40 MG (PROTONIX) TAB PO SCH (09:37)
[2019-05-10] MEDS: NS IV 1000 ML 1,000 ML IV SCH (09:39)
[2019-05-10] MEDS: MENTHOL/ZINC OXIDE (CALMOSEPTINE) 113 GM TUBE TOP SCH ×2 (09:40→21:00)
[2019-05-10 10:35] LABS: CALCIUM 7.3 MG/DL (8.5-10.1); CREATININE SERUM 0.99 MG/DL (0.60-1.30); POTASSIUM 2.7 MMOL/L (3.6-5.0)
--- NOTE | 2019-05-10 10:56 | NUR ---
PALLIATIVE CARE RN in to see patient. She has her two daughter's at bedside one being Pauly, who works here. Patient is sitting in bed, is watchful but does not verbalize with this RN. He daughter reports that they are trying aggressive therapy to see if she can get better. It is not fully clear what is going on. She had an acute change in MS having strokelike symptoms. MRI to see if she had an acute stroke. It was thought that she had aspirated p return from MRI. But is unclear. Made CCMO and then family backed off of that to see if she could improve. Daughter's are not ready to talk about next steps including Hospice yet. Pauly, who works here at the hospital will seek my assistance when needed.
--- NOTE | 2019-05-10 12:31 | Occupational Therapy Eval ---
OT Evaluation-General/PLF Medical Diagnosis Admission Date May 06, 2019 at 14:10 Medical Diagnosis: severe dehydration, severe confusion Onset Date: May 06, 2019 Therapy Diagnosis Therapy Diagnosis: Weakness Height/Weight Height (Feet): 5 Height (Inches): 2.00 Weight (Pounds): 224 Weight (Ounces): 0.9 Precautions Precautions/Isolations: Contact Isolation, Fall Prevention Safety Interventions: Notify Family, Bed Exit Alarm, Reorient-Attempt Referral Physician: Judie Referral Reason: Activity Tolerance, Self Care, Evaluation/Treatment, Strengthening/ROM Medical History Pertinent Medical History: DM, GERD, HTN, Hypothroidism Additional Medical History SIRS, Neuropathy Current History Pt. found unresponsive at home. Reviewed History: Yes Social History Home: Single Level Current Living Status: Spouse Entry Into Home: Stairs With Railing Steps Into Home: 3 ADL-Prior Level of Function SCALE: Activities may be completed with or without assistive devices. 2-Ipjmhgbncx-apyolcc completes the activity by him/herself with no assistance from a helper. 5-Set-up or Clean-up Assistance-helper sets up or cleans up; patient completes activity. [place] assists only prior to or following the activity. 4-Supervision or Touching Assistance-helper provides verbal cues and/or touching/steadying and/or contact guard assistance as patient completes ac tivity. Assistance may be provided throughout the activity or intermittently. 3-Partial/Moderate Assistance-helper does LESS THAN HALF the effort. [place] lifts, holds or supports trunk or limbs, but provides less than half the effort. 2-Substantial/Maximal Assistance-helper does MORE THAN HALF the effort. [place] lifts or holds trunk or limbs and provides more than half the effort. 6-Auhczgoee-yojxyg does ALL the effort. Patient does none of the effort to complete the activity. Or, the assistance of 2 or more helpers is required for the patient to complete the activity. If activity was not attempted, code reason: 7-Patient Refused. 9-Not Applicable-not attempted and the patient did not perform the activity before the current illness, exacerbation or injury. 10-Not Attempted due to Environmental Limitations-(lack of equipment, weather restraints, etc.). 88-Not Attempted due to Medical Conditions or Safety Concerns. ADL PLOF Comments Pt. was independent with daily tasks. Uses a cane but has a 4 wheeled walker she doesn't use. Self Care: Independent Functional Cognition: Independent DME/Equipment: Bath Chair, Tub/Shower DME/Equipment Comments Daughter reports that pt. has multiple handrails in bathroom around tub and toilet. Drive Self: No OT Current Status Subjective Pt. winces with pain when either hand is touched or moved. Pt. is unable to verbalize exactly where or what hurts, but daughter reports that pt. has had pain medication. Appearance Pt. is in bed. Daughter reports that pt. has been up this a.m. and ambulated to bathroom with assist of 2 people. Has been up in chair and has just returned to bed prior to OT entering room. Mental Status/Objective Patient Orientation: Unable to Assess, Non-Verbal/Aphasic Attachments: Forbes Catheter, IV Current Hand Dominance: Right Upper Extremity ROM Pt. is unable to follow cues to raise arms on her own. OT attempts to range bilateral UE. Pt. indicates through facial expressions that this hurts. OT attempts to have pt. squeeze OT's hands. Pt. unable to do so, with exception of small squeezes sporadically. Daughter reports that pt. fell years ago and broke right UE. States that since that time, she has only been able to flex right shoulder to approximately 90 degrees. Left UE is actively WFL. Today, pt. is unable to follow cues of raising either UE. Upper Extremity Strength NT ADL-Treatment Pt. in bed when OT enters room. Daughter present. OT brings in communication s heet that speech therapist gave her. Went over this with pt. and family. Pt. looks at OT, and will occasionally attempt to verbalize. OT attempts to assess UE ROM. Attempts to transfer pt. to side of bed. Pt. is unable to participate and does not initiate assisting. Daughter reports that pt.is exhausted from earlier. Re-positioned pt. in bed. Daughter reports that pt. ate some breakfast earlier. When asked if she fed herself, daughter reports that she was unable to hold silverware, but picked up bowl with bilateral hands and brought to mouth. Pt. issued built up handle for utensils. Daughter verbalizes understanding of this. Pt. also issued squeeze ball for hand strength and mobility. Pt. does verbalize "how" at one point. OT asks pt. if she is wondering "how come I have to get up." Pt. nods and OT explains importance of movement is at this point, to gain strength. Pt. is unable to verbalize after this. All needs are met to pt's comfort level. Education OT Patient Education: Correct positioning, Exercise program, Modified ADL techniques, Progress toward Goal/Update tx plan, Purpose of tx/functional activities, Reviewed precautions, Rehab process Teaching Recipient: Patient, Family Teaching Methods: Demonstration, Handout, Discussion Response to Teaching: Unable to Return Demonstration, Unable to Comprehend OT Short Term Goals Short Term Goals Time Frame: May 24, 2019 Eating(FIM): 3 Grooming(FIM): 3 Toileting(FIM): 3 Transfers (B,C,W/C) (FIM): 3 Toilet/Commode Transfer(FIM): 3 Additional Short Term Goals: 1-Demonstrate ADL Tasks, 2-Verbalize Understanding, 3-ImproveStrength/Jaida 1=Demonstrate adherence to instructed precautions during ADL tasks. 2=Patient will verbalize/demonstrate understanding of assistive devices/modific ations for ADL. 3=Patient will improve strength/tolerance for activity to enable patient to perform ADL's. OT Assisted Goals Assisted Goals Time Frame: Jun 07, 2019 Eating (QC): 5 Oral Hygiene (QC): 4 Upper Body Dressing (QC): 4 Toileting Hygiene (QC): 4 Toilet/Commode Transfer (QC): 4 Additional Goals: 1-Demonstrate ADL Tasks, 2-Verbalize Understanding, 3- ImproveStrength/Jaida 1=Demonstrate adherence to instructed precautions during ADL tasks. 2=Patient will verbalize/demonstrate understanding of assistive devices/modifications for ADL. 3=Patient will improve strength/tolerance for activity to enable patient to perform ADL's. OT Education/Plan Problem List/Assessment Assessment: Decreased Activ Tolerance, Decreased UE Strength, Dependent Transfers, Impaired Bed Mobility, Impaired Cognition, Impaired Coordination, Impaired Funct Balance, Impaired I ADL's, Impaired Self-Care Skills, Restricted Funct UE ROM Discharge Recommendations Plan/Recommendations: Continue POC Therapy Discharge Recommendati: 24 Hour Supervision, Post Acute OT Treatment Plan/Plan of Care Treatment,Training & Education: Yes Patient would benefit from OT for education, treatment and training to promote independence in ADL's, mobility, safety and/or upper extremity function for ADL's. Plan of Care: ADL Retraining, Caregiver Training, Functional Mobility, UE Funct Exercise/Act Treatment Duration: Jun 07, 2019 Frequency: 5 times per week Estimated Hrs Per Day: .5 hour per day Agreement: Yes Rehab Potential: Guarded Time/GCodes Start Time: 10:00 Stop Time: 10:37 Total Time Billed (hr/min): 37 Billed Treatment Time 1, SHRUTI GAUTHIER OT May 10, 2019 12:31
--- NOTE | 2019-05-10 13:25 | NUR ---
Pastoral care visit, I observed son in the hallway and offered continued support.
[2019-05-10] MEDS ORDERED: ASPIRIN PO PRN (13:30)
[2019-05-10] MEDS ORDERED: NON-FORMULARY MEDICATION 1 EA EA (Loperamide HCl (Loperamide) 2 MG) PO PRN (13:30)
[2019-05-10] MEDS ORDERED: CAFFEINE PO PRN (13:30)
--- NOTE | 2019-05-10 13:34 | Progress Note - Hospitalist ---
Subjective HPI/CC On Admission Date Seen by Provider: May 10, 2019 Time Seen by Provider: 13:25 altered mental status Subjective/Events-last exam Pt attempts to speak but unable to get more than 1-2 words out at a time. Daughter an dmultiple family members at bedside report she is much improved from last week and was able to say a sentence or two to them. Daughter states overnight she was very agitated and didn't sleep well. Focused Exam Lactate Level 05/09/19 06:20: Lactic Acid Level 1.48 Objective Exam Vital Signs Vital Signs Date Time Temp Pulse Resp B/P (MAP) Pulse Ox O2 Delivery O2 Flow Rate FiO2 05/10/19 14:41 Nasal Cannula 2.00 05/10/19 12:58 59 05/10/19 12:00 36.9 18 154/80 (104) 05/10/19 08:00 97 Capillary Refill : Less Than 3 SecondsLess Than 3 Seconds General Appearance: No Apparent Distress, Chronically ill, Obese Respiratory: Lungs Clear, No Respiratory Distress Cardiovascular: Regular Rate, Rhythm, No Murmur Extremity: No Calf Tenderness, No Pedal Edema Neurologic/Psychiatric: Alert, Aphasia Results/Procedures Lab Laboratory Tests 05/10/19 10:07 Patient resulted labs reviewed. Imaging: Reviewed Imaging Films, Reviewed Imaging Report Assessment/Plan Assessment and Plan Assess & Plan/Chief Complaint Acute encephalopathy -Likely acute ischemic stroke Hypokalemia- refractory Hypomagnesemia Hypophosphatemia Hypocalcemia Lactic acidosis HTN Type 2 diabetes mellitus with hyperglycemia -Likely CVA despite unremarkable imaging, family states she is unable to tolerate another MRI -Continue ASA and Lipitor -Carotid dopplers ordered for Friday -Hydralazine as needed for SBP >180 -Continue to monitor and replace electrolytes as needed -Continue sliding scale insulin -PT/OT/VISUAL DEVELOPER Diagnosis/Problems Diagnosis/Problems (1) Acute encephalopathy Status: Acute (2) Hypomagnesemia Status: Resolved Resolution Date/Time: 05/09/19 @ 16:52 (3) Hypertension Status: Chronic Qualifiers: Hypertension type: essential hypertension Qualified Codes: I10 - Essential (primary) hypertension (4) Diabetes mellitus Status: Chronic Qualifiers: Diabetes mellitus type: type 2 Diabetes mellitus 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
[2019-05-10] MEDS ORDERED: LOPERAMIDE 2 MG (IMODIUM) TABLET PO PRN (14:00)
[2019-05-10] MEDS: POTASSIUM CL 10MEQ/50ML IVPB 50 ML IV SCH ×4 (14:12→19:13)
--- NOTE | 2019-05-10 15:23 | Physical Therapy Daily Note ---
PT Daily Note-Current Subjective Patient and family agree to PT. Patient is very confused. Mental Status Patient Orientation: Confused Transfers SCALE: Activities may be completed with or without assistive devices. 6-Bdrdwdfvjb-wzlpslf completes the activity by him/herself with no assistance from a helper. 5-Set-up or Clean-up Assistance-helper sets up or cleans up; patient completes activity. [place] assists only prior to or following the activity. 4-Supervision or Touching Assistance-helper provides verbal cues and/or touchin g/steadying and/or contact guard assistance as patient completes activity. Assistance may be provided throughout the activity or intermittently. 3-Partial/Moderate Assistance-helper does LESS THAN HALF the effort. [place] lifts, holds or supports trunk or limbs, but provides less than half the effort. 2-Substantial/Maximal Assistance-helper does MORE THAN HALF the effort. [place] lifts or holds trunk or limbs and provides more than half the effort. 9-Rqxdusrdk-iwfgvn does ALL the effort. Patient does none of the effort to complete the activity. Or, the assistance of 2 or more helpers is required for the patient to complete the activity. If activity was not attempted, code reason: 7-Patient Refused. 9-Not Applicable-not attempted and the patient did not perform the activity before the current illness, exacerbation or injury. 10-Not Attempted due to Environmental Limitations-(lack of equipment, weather restraints, etc.). 88-Not Attempted due to Medical Conditions or Safety Concerns. Roll Left to Right (QC): 3 Sit to Lying (QC): 3 Sit to Stand (QC): 3 Chair/Irt-zg-Fehoy Xfer(QC): 3 Bed to/from Chair: 3 Gait Training Does the Patient Walk?: Yes Distance: 20' Walk 10 feet (QC): 3 Gait Assistive Device: FWW shuffle gait sequence/unsteady/PT to advance FWW and for turns due to patient inability to perform simple tasks without tactile cues Exercises Seated Therapy Exercises: Long arc quads Seated Reps: 5 Assessment Patient tolerates minimal activity and is up in recliner with family present. PT will increase activity as tolerated. PT Short Term Goals Short Term Goals Time Frame: May 15, 2019 PT Headwaitress Goals Headwaitress Goals PT Headwaitress Goals Time Frame: Jun 05, 2019 Sit to Lying (QC): 3 Lying-Sitting on Side/Bed(QC): 3 Sit to Stand (QC): 2 Roll Left to Right (QC): 4 Chair/Lye-ik-Dnqjb Xfer(QC): 3 Does the Patient Walk: No and Walking Goal IS indicated Distance: 50 Walk 10 feet (QC): 4 Walk 50ft with 2 Turns (QC): 4 Gait Level of Assist: 5 Gait Assistive Device: FWW PT Plan Treatment/Plan Treatment Plan: Continue Plan of Care Treatment Plan: Bed Mobility, Education, Functional Activity Jaida, Functional Strength, Gait, Safety, Therapeutic Exercise, Transfers Treatment Duration: Jun 05, 2019 Frequency: 6 times per week Estimated Hrs Per Day: .25 hour per day Patient and/or Family Agrees t: Yes Time/GCodes Time In: 1415 Time Out: 1433 Total Billed Treatment Time: 18 Total Billed Treatment 1 visit FA 18 min JACK RYAN PT May 10, 2019 15:23
--- NOTE | 2019-05-10 15:34 | ST Dysphagia Evaluation ---
Speech Evaluation-General Medical Diagnosis severe dehydration, severe confusion Onset Date: May 06, 2019 Therapy Diagnosis Therapy Diagnosis: Oropharyngeal Dysphagia Precautions Precautions: Aspiration Precautions/Isolations: Aspiration, Fall Prevention, Standard Precautions Referral Referring Physician: Dr. Dimas Reason for Referral: Evaluation/Treatment Medical History Pertinent Medical History: DM, GERD, HTN, Hypothroidism Reviewed History: Yes Social History Current Living Status: Spouse Speech PLF/Current-Dysphagia Prior Level of Function Patient lived at home with her where she was independent for most of her daily needs. Subjective Patient was pleasant and cooperative with the Bedside Dysphagia Evaluation Cognitive Status Patient Orientation: Person Patient aphasic, difficult to assess orientation Oral Motor Skills Dentition: Natural Current Food Consistancy: Pureed, Thin Liquids Ability to Follow Directions: Fair Oral Expression Ability: Moderate Impairment Voice Voice Phonatory-Based Quality: Normal Voice Pitch: Normal Voice Loudness: Normal Face Facial Symmetry: Symmetrical Oral-Facial Assessment Oral-Facial Dentition: Normal Labial Seal Description: Normal Smile: Normal Lingual Protrusion: Normal Lingual ROM: Normal Lingual Strength: Normal Pharynx Velopharyngeal Move.: Normal Volitional Dry Swallow: Yes Voluntary Cough: Yes Can Clear Throat Volitionally: Yes Productive Cough: No Productive Throat Clear: No Dysphagia Evaluation Consistencies Presented: Regular, Thin Liquid, Mechanical Soft, Pureed Oral phase is within normal limits Pharyngeal phase is within normal limits Dietary Recommendations: Regular Liquid Recommendations: Thin Swallowing Precautions: Alternate Liquids/Solids, Liquids from Straw, Oral Supervision Caregiver, Small Bites and Sips, Sitting Upright 90 Degrees, Sitting 90 Degrees 30 Post Intake Dysphagia Evaluation Summary Patient is a pleasant 83 year old female who was admitted to the hospital due to decline in function. The patient was placed on Dysphagia I prior to the Bedside Dysphagia Evaluation. The evaluation was completed with 1/2 tsp of each consistency: puree, mechanical soft and regular. Patient tolerated all consistencies without s/s of aspiration. Patient/caregiver will be trained in safety strategies for oral intake. Patient will be upgraded to regular with thin liquids. Barriers to Learning Patient has aphasia and is difficult to understand. She does try to communicate vocally. Speech Short Term Goals Short Term Goals Short Term Goals 1) The patient will tolerate the least restrictive diet level without s/s of aspiration at 90% or greater with 10% cues as needed. 2) The patient/caregiver will utilize compensatory strategies as trained with 90% or greater with 10% cues as needed. Speech Ski Top Trimmer Goals Ski Top Trimmer Goals Patient will maintain adequate nutrition/hydration via safe effective swallow function. Speech-Plan Patient/Family Goals Patient/Family Goals: Patient's plan upon discharge is unknown at this time. Treatment Plan Speech Therapy Treatment Plan: Continue Plan of Care Patient was given a picture communication sheet for use in her room. Treatment Duration: May 13, 2019 Frequency: 4 times per week Estimated Hrs Per Day: .25 hour per day Rehab Potential: Guarded Barriers to Learning: Patient has aphasia, difficulty understanding and speaking Pt/Family Agrees to Plan: Yes Safety Risks/Education Teaching Recipient: Patient, Family Teaching Methods: Discussion Response to Teaching: Verbalize Understanding Education Topics Provided: Safety of oral intake and diet level Time Speech Therapy Time In: 08:30 Speech Therapy Time Out: 08:45 Total Billed Time: 15 Billed Treatment Time 1CIARA BETH[address] ST May 10, 2019 15:34
--- NOTE | 2019-05-10 16:02 | Diagnostic Imaging Report ---
PROCEDURE: US carotid duplex, bilateral. TECHNIQUE: Multiple real-time grayscale images were obtained over the carotid arteries in various projections, bilaterally. Additional spectral analysis and color Doppler duplex images were also obtained. INDICATION: Stroke and speech difficulty. FINDINGS: There is mild plaquing at the carotid bifurcations as well as the origins of the internal and external carotid arteries. Velocities are fairly normal apart from some mild velocity elevation in the distal left internal carotid artery reaching 135 cm/s. Right external carotid artery also shows some velocity elevation at 172 cm/s. Both vertebral arteries demonstrate antegrade flow. IMPRESSION: Mild bilateral carotid plaque. Velocity measurements in the distal left internal carotid artery are consistent with approximately 60-79% diameter stenosis. No other significant abnormality is seen. Parameters based on the consensus panel Luz-Scale and Doppler ultrasound criteria published May 2003, Radiology, Volume 229. DOPPLER (peak systolic velocity M/S Right Left CCA .77 .69 ICA Proximal .60 .61 ICA Mid .86 .90 ICA Distal .96 1.35 RATIO 1.25 1.96 ECA 1.72 1.16 VERT .71 .84 Dictated by: Dictated on workstation # [id number]
[2019-05-10] MEDS: TOLTERODINE LA 4 MG (DETROL) CAP PO SCH (21:00)
[2019-05-10] MEDS ORDERED: risperiDONE 0.25 MG (RisperDAL) TAB PO SCH (21:00)
[2019-05-10] MEDS: ENOXAPARIN 40 MG/0.4 ML (LOVENOX) SYR SC SCH (21:00)
[2019-05-10] MEDS: MELATONIN 3 MG TABLET PO SCH (21:00)
[2019-05-10] MEDS ORDERED: LORazepam INJ 2 MG/ML (ATIVAN) VIAL IVP ONE (23:30)
[2019-05-10] MEDS ORDERED: LORazepam INJ 2 MG/ML (ATIVAN) VIAL ONE (23:33)
[2019-05-11] VITALS (7 sets, daily range): BP systolic 136–149; BP diastolic 63–69
--- NOTE | 2019-05-11 04:53 | NUR ---
[id number] pt restless attempting to get out of bed family at bedside unable to redirect pt.. dr walker notified per family request.. order given for ativan 1mg iv x1
[2019-05-11] MEDS: inSUlin ASPART (NovoLOG) 1 UNIT/0.01 ML (CHARGE PER UNIT) SC SCH ×6 (05:00→20:34)
[2019-05-11] MEDS: PIPERACILLIN/TAZOBACTAM (BULK) 4.5 GM in NS (IVPB) 100 ML IV SCH ×5 (06:17→23:08)
--- NOTE | 2019-05-11 06:17 | NUR ---
pt has rested well tonight after med given. family request that pt not be woke up at this time for medications
--- NOTE | 2019-05-11 11:02 | Progress Note - Hospitalist ---
Subjective HPI/CC On Admission Date Seen by Provider: May 11, 2019 Time Seen by Provider: 09:30 altered mental status Subjective/Events-last exam Pt is quite sedated this morning. Family reports she has been sleeping soundly since ativan given in early AM. Discussed with family about discharge planning and they are hopeful to get her to IRU. Focused Exam Lactate Level 05/09/19 06:20: Lactic Acid Level 1.48 Objective Exam Vital Signs Vital Signs Date Time Temp Pulse Resp B/P (MAP) Pulse Ox O2 Delivery O2 Flow Rate FiO2 05/11/19 08:00 36.4 53 20 137/63 (87) 96 Room Air 05/10/19 20:00 2.00 Capillary Refill : Less Than 3 SecondsLess Than 3 Seconds General Appearance: No Apparent Distress, Chronically ill Respiratory: Lungs Clear, No Respiratory Distress Cardiovascular: Regular Rate, Rhythm, No Murmur Gastrointestinal: Normal Bowel Sounds, Non Tender, Soft Extremity: Pedal Edema Neurologic/Psychiatric: Other (sleeping soundly) Results/Procedures Lab Patient resulted labs reviewed. 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 Diarrhea- predates admission Hypokalemia- refractory Hypomagnesemia - Continue electrolyte replacement as needed - Diarrhea improving Insulin Dependent Type 2 diabetes mellitus with hyperglycemia - Continue home regimen Discharge planning: [facility] as has been declined by IRU at this time Diagnosis/Problems Diagnosis/Problems (1) Acute encephalopathy Status: Acute (2) Hypomagnesemia Status: Resolved Resolution Date/Time: 05/09/19 @ 16:52 (3) Hypertension Status: Chronic Qualifiers: Hypertension type: essential hypertension Qualified Codes: I10 - Essential (primary) hypertension (4) Diabetes mellitus Status: Chronic Qualifiers: Diabetes mellitus type: type 2 Diabetes mellitus 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
[2019-05-11 11:09] LABS: BUN/CREATININE RATIO 4; CALCIUM 7.2 MG/DL (8.5-10.1); CARBON DIOXIDE 25 MMOL/L (21-32); CHLORIDE 112 MMOL/L (98-107); CREATININE SERUM 0.73 MG/DL (0.60-1.30); GFR ESTIMATED > 60; GLUCOSE 92 MG/DL (70-105); MAGNESIUM 1.7 MG/DL (1.6-2.4); POTASSIUM 2.6 MMOL/L (3.6-5.0); SODIUM 146 MMOL/L (135-145)
--- NOTE | 2019-05-11 11:43 | NUR ---
Swing Bed Note: Qualifies for swing bed for Physical, Occupational, and Speech Therapies for (CVA) continued needs to address weakness and cognitive deficits r/t the recent CVA. Ultimate goal is to return home at a safe level. Prior to this spell of illness patient was living independently with her at home. She was independent in her ADL's et required some help with house cleaning and cooking. Anticipate admission to swing bed tomorrow 05/12 a.m. Thank you for this referral!
--- NOTE | 2019-05-11 12:14 | Physical Therapy Daily Note ---
PT Daily Note-Current Subjective Patient family agree to PT at this time. Patient is still in bed and has not been moved or awake all day. Patient is stirring at beginning of tx and asleep again by end of tx. Pain Numeric Pain Scale: 5-Moderate Pain Location: Right Location Body Site: Calf Pain Description: Ache Comment: FLACC Mental Status Patient Orientation: Confused, Non-Verbal/Aphasic Attachments: Forbes Catheter, IV Transfers SCALE: Activities may be completed with or without assistive devices. 5-Jlcqyxbyyn-wzxrrgc completes the activity by him/herself with no assistance from a helper. 5-Set-up or Clean-up Assistance-helper sets up or cleans up; patient completes activity. [place] assists only prior to or following the activity. 4-Supervision or Touching Assistance-helper provides verbal cues and/or touching/steadying and/or contact guard assistance as patient completes activity. Assistance may be provided throughout the activity or intermittently. 3-Partial/Moderate Assistance-helper does LESS THAN HALF the effort. [place] lifts, holds or supports trunk or limbs, but provides less than half the effort. 2-Substantial/Maximal Assistance-helper does MORE THAN HALF the effort. [place] lifts or holds trunk or limbs and provides more than half the effort. 4-Rftxwfmmh-mgcnxk does ALL the effort. Patient does none of the effort to complete the activity. Or, the assistance of 2 or more helpers is required for the patient to complete the activity. If activity was not attempted, code reason: 7-Patient Refused. 9-Not Applicable-not attempted and the patient did not perform the activity before the current illness, exacerbation or injury. 10-Not Attempted due to Environmental Limitations-(lack of equipment, weather restraints, etc.). 88-Not Attempted due to Medical Conditions or Safety Concerns. Exercises Supine Ex: Ankle pumps, Heel Slides, Straight leg raise, Hip abd/add Supine Reps: 15 (AAROM) Assessment Patient was only slightly alert during treatment and assisted some with exercise repetitions with cues. PT performed most movement. Exercises were limited to bed level d/t continued grogginess. Patient appeared to return to sleep by conclusion of treatment. PT Short Term Goals Short Term Goals Time Frame: May 15, 2019 PT Residential Goals Road Grader Goals PT Road Grader Goals Time Frame: Jun 05, 2019 Sit to Lying (QC): 3 Lying-Sitting on Side/Bed(QC): 3 Sit to Stand (QC): 2 Roll Left to Right (QC): 4 Chair/Xxj-gw-Nvdyx Xfer(QC): 3 Does the Patient Walk: No and Walking Goal IS indicated Distance: 50 Walk 10 feet (QC): 4 Walk 50ft with 2 Turns (QC): 4 Gait Level of Assist: 5 Gait Assistive Device: FWW PT Plan Treatment/Plan Treatment Plan: Continue Plan of Care Treatment Plan: Bed Mobility, Education, Functional Activity Jaida, Functional Strength, Gait, Safety, Therapeutic Exercise, Transfers Treatment Duration: Jun 05, 2019 Frequency: 6 times per week Estimated Hrs Per Day: .25 hour per day Patient and/or Family Agrees t: Yes Time/GCodes Time In: 1132 Time Out: 1146 Total Billed Treatment Time: 14 Total Billed Treatment 1 visit EX 14min JACK RYAN PT May 11, 2019 12:14
--- NOTE | 2019-05-11 12:47 | Speech Therapy Progress Note ---
Therapy Progress Note ST attempted to see patient this afternoon. Family present while patient was sound asleep. Family reported she's been eating very well without any problems. ST will follow up with patient tomorrow. JALEN BEAL May 11, 2019 12:47
[2019-05-11] MEDS ORDERED: RT-ALBUTEROL SULF 2.5 MG/3 ML PRE-MIX VIAL INH PRN (14:00)
[2019-05-11] MEDS: ASPIRIN E.C. 81 MG (ECOTRIN) TAB PO SCH (14:05)
[2019-05-11] MEDS: LEVOTHYROXINE 75 MCG (LEVOTHROID) TABLET PO SCH (14:05)
[2019-05-11] MEDS: amLODIPine 10 MG (NORVASC) TAB PO SCH (14:05)
[2019-05-11] MEDS: GABAPENTIN 300 MG (NEURONTIN) CAP PO SCH ×4 (14:05→20:20)
[2019-05-11] MEDS: PANTOPRAZOLE 40 MG (PROTONIX) TAB PO SCH (14:05)
[2019-05-11] MEDS: DOCUSATE SODIUM 100 MG (COLACE) CAP PO SCH ×2 (14:06→20:20)
[2019-05-11] MEDS: MENTHOL/ZINC OXIDE (CALMOSEPTINE) 113 GM TUBE TOP SCH ×2 (14:08→20:34)
--- NOTE | 2019-05-11 14:55 | Occupational Ther Daily Note ---
OT Current Status-Daily Note Subjective Pt sitting in chair with multiple family members present. Pt reports back pain, but does not rate. Mental Status/Objective Attachments: Forbes Catheter, IV ADL-Treatment Pt sitting in chair eating lunch when therapist arrives. Pt able to feed self pudding and peaches with spoon after set up. Pt washed face with SBA and then requests to use restroom. Sit to stand with mod assist. Pt ambulated to restroom with FWW. Assist required to manage FWW and cues for safety. Transfer to toilet with min assist. Pt had BM and attempted to complete hygiene, but requires assist to complete thorough hygiene. Pt returned to bed after treatment. Requi red assist to raise LE onto bed and position upper body. Assist to reposition in bed. Pt moves slowly and requires increased time for ADL and mobility tasks. Pt resting in bed with needs met and family present after session. Therapy Code Descriptions/Definitions Functional [place] Measure: 0=Not Assessed/NA 4=Minimal Assistance 1=Total Assistance 5=Supervision or Setup 2=Maximal Assistance 6=Modified [place] 3=Moderate Assistance 7=Complete IndependenceSCALE: Activities may be completed with or without assistive devices. 2-Yqjamwpbky-oiguyqp completes the activity by him/herself with no assistance from a helper. 5-Set-up or Clean-up Assistance-helper sets up or cleans up; patient completes activity. [place] assists only prior to or following the activity. 4-Supervision or Touching Assistance-helper provides verbal cues and/or touching/steadying and/or contact guard assistance as patient completes activity. Assistance may be provided throughout the activity or intermittently. 3-Partial/Moderate Assistance-helper does LESS THAN HALF the effort. [place] lifts, holds or supports trunk or limbs, but provides less than half the effort. 2-Substantial/Maximal Assistance-helper does MORE THAN HALF the effort. [place] lifts or holds trunk or limbs and provides more than half the effort. 2-Baufcawyl-mpsrms does ALL the effort. Patient does none of the effort to complete the activity. Or, the assistance of 2 or more helpers is required for the patient to complete the activity. If activity was not attempted, code reason: 7-Patient Refused. 9-Not Applicable-not attempted and the patient did not perform the activity before the current illness, exacerbation or injury. 10-Not Attempted due to Environmental Limitations-(lack of equipment, weather restraints, etc.). 88-Not Attempted due to Medical Conditions or Safety Concerns. Eating (QC): 5 Toileting Hygiene (QC): 2 Toilet Transfer (QC): 3 OT Short Term Goals Short Term Goals Time Frame: May 24, 2019 Eating(FIM): 3 Grooming(FIM): 3 Toileting(FIM): 3 Transfers (B,C,W/C) (FIM): 3 Toilet/Commode Transfer(FIM): 3 Additional Short Term Goals: 1-Demonstrate ADL Tasks, 2-Verbalize Understanding, 3-ImproveStrength/Jaida 1=Demonstrate adherence to instructed precautions during ADL tasks. 2=Patient will verbalize/demonstrate understanding of assistive dev ices/modifications for ADL. 3=Patient will improve strength/tolerance for activity to enable patient to perform ADL's. OT Senior Care Goals Flatwork Finisher Hand Goals Time Frame: Jun 07, 2019 Eating (QC): 5 Oral Hygiene (QC): 4 Upper Body Dressing (QC): 4 Toileting Hygiene (QC): 4 Toilet/Commode Transfer (QC): 4 Additional Goals: 1-Demonstrate ADL Tasks, 2-Verbalize Understanding, 3- ImproveStrength/Jaida 1=Demonstrate adherence to instructed precautions during ADL tasks. 2=Patient will verbalize/demonstrate understanding of assistive devices/modifications for ADL. 3=Patient will improve strength/tolerance for activity to enable patient to perform ADL's. OT Education/Plan Discharge Recommendations Plan/Recommendations: Continue POC Treatment Plan/Plan of Care Patient would benefit from OT for education, treatment and training to promote independence in ADL's, mobility, safety and/or upper extremity function for ADL's. Plan of Care: ADL Retraining, Caregiver Training, Functional Mobility, UE Funct Exercise/Act Treatment Duration: Jun 07, 2019 Frequency: 5 times per week Estimated Hrs Per Day: .5 hour per day Agreement: Yes Rehab Potential: Guarded Time/GCodes Start Time: 14:15 Stop Time: 14:46 Total Time Billed (hr/min): 31 Billed Treatment Time 1 visit, ADLx2(31minutes) JOVI ANTUNEZ OT May 11, 2019 14:55
--- NOTE | 2019-05-11 15:17 | NUR ---
Follow up visit with the pt, her daughter Pauly, Sister Yoli, and Clifton. Clifton and the pt have been 63 years and he calls her "the love of his life." The pt's sister said they are two years apart in age, and they remain emotionally close. Her sister moved to [place], [place] this last year to be near her daughter and shared this has been a challenging transition. She says she is thankful to be present for the pt, and be witness to answered prayers. All shared that the pt was on comfort measures last Friday. Her sister shared that she noticed the pt is able to speak, eat, and communicate more clearly since yesterday. Physical therapy was present and assisted the pt by walker to the restroom. Pt was then assisted by the RN and Physical Therapy to her bed. I engaged in rapport building and healing presence.
--- NOTE | 2019-05-11 15:26 | NUR ---
Pt said she would like to receive communion now that she is able to eat. The family mentioned that Fr. Jin visited this weekend and offered sacrament of the sick, after which time the pt has reportedly improved.
--- NOTE | 2019-05-11 16:16 | NUR ---
provided prayer and Communion.
[2019-05-11] MEDS: ENOXAPARIN 40 MG/0.4 ML (LOVENOX) SYR SC SCH (20:19)
[2019-05-11] MEDS: TOLTERODINE LA 4 MG (DETROL) CAP PO SCH (20:20)
[2019-05-11] MEDS: MELATONIN 3 MG TABLET PO SCH (20:20)
[2019-05-11] MEDS ORDERED: LORazepam INJ 2 MG/ML (ATIVAN) VIAL IVP PRN (21:00)
[2019-05-11] MEDS ORDERED: risperiDONE 1 MG (RisperDAL) TAB PO SCH (21:00)
[2019-05-12] VITALS: BP 142/80
[2019-05-12] MEDS: inSUlin ASPART (NovoLOG) 1 UNIT/0.01 ML (CHARGE PER UNIT) SC SCH ×3 (00:53→08:44)
[2019-05-12 04:26] VITALS: BP 122/75
[2019-05-12 05:35] LABS: BASOPHILS % (AUTO) 1 % (0-10); EOSINOPHILS # (AUTO) 0.4 10^3/uL (0.0-0.3); EOSINOPHILS % (AUTO) 7 % (0-10); HEMATOCRIT 38 % (35-52); HEMOGLOBIN 12.4 G/DL (11.5-16.0); LYMPHOCYTES # (AUTO) 1.8 X 10^3 (1.0-4.0); LYMPHOCYTES % (AUTO) 31 % (12-44); MEAN CORPUSCULAR HEMOGLOBIN 29 PG (25-34); MEAN CORPUSCULAR HGB CONC 33 G/DL (32-36); MEAN CORPUSCULAR VOLUME 91 FL (80-99); MONOCYTES # (AUTO) 0.5 X 10^3 (0.0-1.0); MONOCYTES % (AUTO) 9 % (0-12); NEUTROPHILS # (AUTO) 3.1 X 10^3 (1.8-7.8); NEUTROPHILS % (AUTO) 52 % (42-75); PLATELET COUNT 175 10^3/uL (130-400); RED CELL DISTRIBUTION WIDTH 15.1 % (10.0-14.5); WHITE BLOOD COUNT 5.9 10^3/uL (4.3-11.0)
[2019-05-12] MEDS: LEVOTHYROXINE 75 MCG (LEVOTHROID) TABLET PO SCH (05:45)
[2019-05-12] MEDS: GABAPENTIN 300 MG (NEURONTIN) CAP PO SCH ×2 (05:46→08:42)
[2019-05-12] MEDS: PIPERACILLIN/TAZOBACTAM (BULK) 4.5 GM in NS (IVPB) 100 ML IV SCH (05:46)
[2019-05-12 06:02] LABS: BUN/CREATININE RATIO 5; CALCIUM 7.6 MG/DL (8.5-10.1); CARBON DIOXIDE 25 MMOL/L (21-32); CHLORIDE 107 MMOL/L (98-107); CREATININE SERUM 0.83 MG/DL (0.60-1.30); GFR ESTIMATED > 60; GLUCOSE 185 MG/DL (70-105); POTASSIUM 2.6 MMOL/L (3.6-5.0); SODIUM 141 MMOL/L (135-145)
[2019-05-12 08:00] VITALS: BP 162/95
--- NOTE | 2019-05-12 08:30 | NUR ---
patient sitting up in bed eating breakfast, she states she did not need anything at this time, family was at bedside
[2019-05-12] MEDS: amLODIPine 10 MG (NORVASC) TAB PO SCH (08:42)
[2019-05-12] MEDS: PANTOPRAZOLE 40 MG (PROTONIX) TAB PO SCH (08:42)
[2019-05-12] MEDS: ASPIRIN E.C. 81 MG (ECOTRIN) TAB PO SCH (08:42)
[2019-05-12] MEDS: MENTHOL/ZINC OXIDE (CALMOSEPTINE) 113 GM TUBE TOP SCH (08:42)
[2019-05-12] MEDS: DOCUSATE SODIUM 100 MG (COLACE) CAP PO SCH (08:43)
[2019-05-12] MEDS ORDERED: POTASSIUM CL 10MEQ/50ML IVPB 50 ML IV SCH (08:45)
--- NOTE | 2019-05-12 09:08 | Discharge Summary ---
Diagnosis/Chief Complaint Date of Admission May 06, 2019 at 14:10 Date of Discharge Admission Diagnosis AMS Primary Care Tressa Stephens DO Discharge Diagnosis (1) Acute encephalopathy Status: Acute (2) Hypomagnesemia Status: Resolved (3) Hypertension Status: Chronic (4) Diabetes mellitus Status: Chronic (5) Neuropathy Status: Chronic Discharge Summary Procedures/Consulations Dr Zepeda- Cardiology Discharge Physical Exam Allergies: Coded Allergies: No Known Drug Allergies (Verified , 05/06/19) Vitals & I&Os Vital Signs Date Time Temp Pulse Resp B/P (MAP) Pulse Ox O2 Delivery O2 Flow Rate FiO2 05/12/19 13:00 69 05/12/19 08:25 95 Room Air 05/12/19 08:00 36.6 18 162/95 (117) 05/11/19 20:57 2.00 General Appearance: No Apparent Distress, Chronically ill Cardiovascular: Regular Rate, Rhythm, No Murmur Gastrointestinal: Normal Bowel Sounds, Soft Hospital Course Pt is an 83yoCF with a PMH of IDDMI, HTN, insomnia who presented to the ER due to altered mentation. She was admitted for acute encephalopathy and was obtunded. She was originally made comfort care but as she gradually improved family elected to pursue more aggressive measures. She remained weak and had expressive aphasia. There was concern for stroke and CT head was negative. She underwent MRI but there was too much motion artifact. She continued to improve with ST/PT/OT and was ultimately discharged to swing bed status for continued therapy. Labs (last 24 hrs) Microbiology 05/06/19 Blood Culture - Final, Complete No growth 05/09/19 C. difficile GDH Antigen & Toxins - Final, Complete 05/06/19 Influenza Types A,B Antigen (ALEKSANDER) - Final, Complete Patient resulted labs reviewed. Pending Labs Imaging: Reviewed Imaging Films, Reviewed Imaging Report Discussion & Recommendations Discharge Planning: >30 minutes discharge planning Discharge Home Medications: Active Scripts Active Reported Gabapentin 300 Mg Capsule 900 Mg PO HS LAST FILLED #450 11-12-18 TAKES 3 (300MG) CAPSULES Levemir Flextouch (Insulin Detemir) 100 Unit/1 Ml Insuln.pen 40 Units SC HS Gaviscon Es Tablet Chew (Magnesium Carbonate/Al Hydrox) 1 Each Tab.chew 1-2 Tab.chew PO QID PRN Eric Back & Body Caplet (Aspirin/Caffeine) 1 Each Tablet 2 Tab PO BID PRN Loperamide (Loperamide HCl) 2 Mg Tablet 2 Mg PO QID PRN Mucinex (Guaifenesin) 600 Mg Tab.er.12h 600 Mg PO TID PRN Fexofenadine HCl 180 Mg Tablet 180 Mg PO HS PRN Calcium 600 + Vit D 200 Tablet (Calcium Carbonate/Vitamin D3) 1 Each Tablet 1 Tab PO BID Multivitamins (Multivitamin) 1 Each Tablet 1 Tab PO DAILY Synthroid (Levothyroxine Sodium) 50 Mcg Tablet 50 Mcg PO DAILY Synthroid (Levothyroxine Sodium) 25 Mcg Tablet 25 Mcg PO DAILY Oxycodone HCl 10 Mg Tablet 10-20 Mg PO BID PRN Clonidine HCl 0.1 Mg Tablet 0.1 Mg PO TID PRN Simvastatin 40 Mg Tablet 40 Mg PO HS Humalog Kwikpen (Insulin Lispro) 100 Unit/1 Ml Insuln.pen 16 Units SQ TIDAC Vitamin C (Ascorbic Acid) 1,000 Mg Tablet 1,000 Mg PO DAILY Esomeprazole Magnesium 40 Mg Capsule.dr 40 Mg PO DAILY Tolterodine Tartrate ER (Tolterodine Tartrate) 4 Mg Cap.er.24h 4 Mg PO HS Telmisartan 80 Mg Tablet 80 Mg PO HS LAST FILLED #90 09-14-18 Gabapentin 300 Mg Capsule 300-600 Mg PO TID LAST FILLED #450 11-12-18 Amlodipine Besylate 10 Mg Tablet 10 Mg PO DAILY LAST FILLED #90 09-14-18 Instructions to patient/family Please see electronic discharge instructions given to patient. Clinical Quality Measures DVT/VTE Risk/Contraindication: Risk Factor Score Per Nursin RFS Level Per Nursing on Admit: 4+=Very High Problem Qualifiers (1) Hypertension: Hypertension type: essential hypertension Qualified Codes: I10 - Essential (primary) hypertension (2) Diabetes mellitus: Diabetes mellitus type: type 2 Diabetes mellitus detention insulin use: with petroleum terminal plant operator use Diabetes mellitus complication status: with neurologic complications Diabetes mellitus complication detail: with polyneuropathy Qualified Codes: E11.42 - Type 2 diabetes mellitus with diabetic polyneuropathy; 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
[2019-05-12] MEDS ORDERED: NS IV 500 ML 500 ML ONE (09:26)
--- NOTE | 2019-05-17 14:50 | Physician Query Clarification ---
PQ-Conflicting Diagnosis Admission/Discharge Admission Date: May 06, 2019 at 14:10 Discharge Date: May 12, 2019 at 09:36 The medical record reflects the following clinical scenario: History/Risk Factors: HTN, acidosis, DM w/hyperglycemia an neuropathy Clinical Findings: acute encephalopathy, aphasia, facial weakness, CT head - neg, MRI - motion artifact Treatment: Lovenox injection, IV fluids Question: Do you agree with the impression of the likely acute ischemic stroke per Dr. Dimas. Please document a response in Progress Note or Discharge Summary. 1. Yes, likely acute ischemic stroke 2. No, stroke ruled out. Dx is acute encephalopathy etiology undetermined 3. Other, with explanation of clinical findings 4. Clinically undetermined, no explanation for clinical findings. PHYSICIAN RESPONSE Do you agree w/Consulting Dx?: Yes Please remember a lack of response to the above will prompt a phone page by CDI/Coding staff. In responding to this query, please exercise your independent professional judgment. The purpose of this communication is to more accurately reflect the complexity of your patients condition. The fact that a question is asked does not imply that any particular answer is desired or expected. Thank you for your timely response to this clarification. Requestors name: Brandon THIS PHYSICIAN QUERY FORM IS A PERMANENT PART OF THE MEDICAL RECORD BRANDON RIVERA May 17, 2019 14:50 EMMY ROSS MD May 18, 2019 12:17 POS
== END 2019-05-12 09:36 | disposition swing bed (61) | DRG 65 ==
LOC: EDUNIT# 11:47 → ER 11:48 → 4TH 14:10
PROVIDERS: ADMIT Internal Medicine; ATTEND Internal Medicine
DX: I63.9 Cerebral infarction, unspecified (principal); G93.40 Encephalopathy, unspecified; E87.2 Acidosis; E86.0 Dehydration; R47.01 Aphasia; R29.810 Facial weakness; F11.20 Opioid dependence, uncomplicated; H50.9 Unspecified strabismus; D69.3 Immune thrombocytopenic purpura; I10 Essential (primary) hypertension; E86.1 Hypovolemia; E87.6 Hypokalemia; E83.42 Hypomagnesemia; E11.65 Type 2 diabetes mellitus with hyperglycemia; Z66 Do not resuscitate; E83.39 Other disorders of phosphorus metabolism; E83.51 Hypocalcemia; R10.9 Unspecified abdominal pain; E11.40 Type 2 diabetes mellitus with diabetic neuropathy, unspecified; E11.618 Type 2 diabetes mellitus with other diabetic arthropathy; E66.9 Obesity, unspecified; E78.00 Pure hypercholesterolemia, unspecified; K21.9 Gastro-esophageal reflux disease without esophagitis; E03.9 Hypothyroidism, unspecified; F41.9 Anxiety disorder, unspecified; F32.9 Major depressive disorder, single episode, unspecified; M54.9 Dorsalgia, unspecified; Z79.4 Long term (current) use of insulin; Z68.35 Body mass index [BMI] 35.0-35.9, adult; Z91.81 History of falling
CPT/HCPCS: 36415; 51702; 70450; 70551; 71045; 72125; 80048; 80053; 80061; 81000; 82140; 82550; 82805; 82962; 83605; 83615; 83735; 84100; 84443; 84484; 85007; 85025; 85027; 85045; 85379; 85610; 85730; 87040; 87324; 87449; 87804; 93005; 93041; 93306; 93880; 94664; 94760; 96361; 96365

== ENCOUNTER 2019-05-12 10:04 | Inpatient (IN) | payer MEDICARE, BC ==
[~2019-05-12] VITALS: Ht 160 cm; Wt 90.2 kg
[~2019-05-12 10:04] MED LIST changes: +ACETAMINOPHEN 650 MG SUPP (TYLENOL) PR PRN; +ARTIFICAL TEARS 0.4 ML UNIT DOSE (REFRESH PLUS) OU PRN; +ASPI-816 PO; +ASPIRIN PO PRN; +BISACODYL 10 MG SUPP (DULCOLAX) PR PRN; +CAFFEINE PO PRN; +CALC-6 PO; +FEXO-46 PO; +GUAI600T43 PO; +INSU100I29 SC; +LEVO25TA2 PO; +LEVO50TA PO; +LOPE2TAB34 PO; +LOPERAMIDE 2 MG (IMODIUM) TABLET PO PRN; +LORazepam INJ 2 MG/ML (ATIVAN) VIAL IVP PRN; +MAGN1TAB31 PO; +MULT1TAB69 PO; +ONDANSETRON 4 MG/2 ML (SDV) Z0FRAN IVP PRN; +PIPERACILLIN/TAZOBACTAM (BULK) 4.5 GM in NS (IVPB) 100 ML IV SCH; +POLYETHYLENE GLYCOL 17 GM (MIRALAX) PACK PO PRN; +RT-ALBUTEROL SULF 2.5 MG/3 ML PRE-MIX VIAL INH PRN; +SIMV20TA26 PO; -SIMV20TA3 PO; +SIMV40TA25 PO
[2019-05-12] MEDS: POTASSIUM CL 10MEQ/50ML IVPB 50 ML IV SCH ×3 (10:39→13:32)
--- NOTE | 2019-05-12 10:53 | NUR ---
Admission Drug Regimen Review Completed: Date: 05/12/19 Time: 1053 Physician Notified: EMMY ROCKWELL MD Date: 05/12/19 Time: 1053 Issue Identified; Action Plan to Resolve and Any Action Taken: [employer] identified Gabapentin 900mg PO HS as a duplicate medication and auto dc'd this. Contacted Dr. Rockwell et this medication was supposed to continue to the swing bed account. This medication was entered back into [facility].
--- NOTE | 2019-05-12 11:12 | Physical Therapy Evaluation ---
PT Evaluation-General Medical Diagnosis Admission Date May 12, 2019 at 10:04 Medical Diagnosis: stroke/confusion Onset Date: May 06, 2019 Therapy Diagnosis Therapy Diagnosis: decreased strength and endurance, abn gait Height/Weight Height (Feet): 5 Height (Inches): 2.00 Weight (Pounds): 224 Weight (Ounces): 0.9 Precautions Precautions/Isolations: Fall Prevention, Standard Precautions Weight Bear Status Right Lower Extremity: Right Full Weight Bearing Left Lower Extremity: Left Full Weight Bearing Referral Physician: FAWN Reason for Referral: Evaluation/Treatment, Strengthening Medical History Pertinent Medical History: DM, GERD, HTN, Hypothroidism Additional Medical History Medical History Pertinent Medical History: DM, GERD, HTN, Hypothroidism Additional Medical History chronic abdominal pain-narcotics dependent, severe neuropathy with Charcot foot, chronic edema, high cholesterol, hiatal hernia, IBS, DDD, anxiety, depression, bullous pemphigoid Current History Pt found down on floor. To ER with severe dehydration, confusion. Reviewed History: Yes Social History Home: Single Level Current Living Status: Spouse Entry Into Home: Stairs With Railing PT Steps Into Home: 1 Prior Prior Level of Function SCALE: Activities may be completed with or without assistive devices. 3-Eaavuftppv-pdhdknh completes the activity by him/herself with no assistance from a helper. 5-Set-up or Clean-up Assistance-helper sets up or cleans up; patient completes activity. [place] assists only prior to or following the activity. 4-Supervision or Touching Assistance-helper provides verbal cues and/or touching/steadying and/or contact guard assistance as patient completes activity. Assistance may be provided throughout the activity or intermittently. 3-Partial/Moderate Assistance-helper does LESS THAN HALF the effort. [place] lifts, holds or supports trunk or limbs, but provides less than half the effort. 2-Substantial/Maximal Assistance-helper does MORE THAN HALF the effort. [place] lifts or holds trunk or limbs and provides more than half the effort. 7-Swfbeglbn-dvqbqc does ALL the effort. Patient does none of the effort to complete the activity. Or, the assistance of 2 or more helpers is required for the patient to complete the activity. If activity was not attempted, code reason: 7-Patient Refused. 9-Not Applicable-not attempted and the patient did not perform the activity b efore the current illness, exacerbation or injury. 10-Not Attempted due to Environmental Limitations-(lack of equipment, weather restraints, etc.). 88-Not Attempted due to Medical Conditions or Safety Concerns. Bed Mobility: 6 Transfers (B,C,W/C): 6 Gait: 6 Stairs: 6 Indoor Mobility (Ambulation): Independent Stairs: Independent PT Evaluation-Current Subjective Pt in bed pre-tx. Pt agrees to PT this morning. Pt has multiple family member present during tx. pt reports 8/10 pain in L neck and L UE around IV insertion Pt/Family Goals Pt in recliner with feet elevated post-tx. Pt with family present, call light, room phone, and tray table in reach with all needs met at this time. Objective Patient Orientation: Person, [place] Attachments: Forbes Catheter, IV Pt repeats words and has difficulty with word selection and appears to have trouble comprehending communication and directions but tries to comply with this PT's requests. Pt was able to identify her daughter that came to visit during the TX. ROM/Strength Strength Lower Extremities 3-/5 B/L hip flexion 4+/5 B/L knee extension 4+/5 B/L knee flexion Integumentary/Posture Bowel Incontinence: Yes Bladder Incontinence: Yes Sensory Vision: Functional Hearing: Functional Sensation Right Lower Extremit: Intact Sensation Left Lower Extremity: Intact Transfers Roll Left to Right (QC): 4 (SBA) Lying to Sitting/Side of Bed(Q: 3 (MinAx1) Sit to Stand (QC): 3 (modA) Gait Does the Patient Walk?: Yes Distance (FIM): 1=up to 49 ft Walk 10 feet (QC): 4 (CGA) Walk 50 ft with 2 Turns(QC): 88 Walk 150 ft (QC): 88 Walking 10ft/uneven surface-QC: 88 Distance: 40' Gait Assistive Device: FWW Comments/Gait Description Pt ambulates with short choppy steps with B/L out toeing. Pt walks bent over with walker out infront of herself. Obvious charcot foot bilaterally Wheelchair Training Does the Pt Use a Wheelchair?: No Stairs 1 Step (curb) (QC): 88 Balance Sitting Static: Normal Sitting Dynamic: Good Standing Static: Good Standing Dynamic: Fair Treatment Pt performed LE strengthening exercises, bed mobility, skilled ambulation training, transfer training, and education this date. supine ankle pumps, supin e SLR, supine hip abd/add, and seated LAQ 1 set by 10 reps Assessment/Needs Pt with severe fatigue at the end of ambulation. Pt reports light headedness following ambulation. Rehab Potential: Fair PT Skilled Nursing Goals Skilled Nursing Goals PT Communicable Disease Specialist Goals Time Frame: May 19, 2019 Sit to Lying (QC): 4 (SBA) Lying-Sitting on Side/Bed(QC): 4 (SBA) Sit to Stand (QC): 4 (SBA) Roll Left to Right (QC): 6 Distance: 150' Walk 10 feet (QC): 4 (SBA) Walk 50ft with 2 Turns (QC): 4 (SBA) Walk 150 ft (QC): 4 (SBA) Gait Assistive Device: FWW 1 Step (curb) (QC): 3 (Jose) PT Plan Problem List Problem List: Activity Tolerance, Functional Strength, Safety, Balance, Gait, Transfer, Bed Mobility Treatment/Plan Treatment Plan: Continue Plan of Care Treatment Plan: Bed Mobility, Concurrent Therapy, Education, Functional Activity Jaida, Functional Strength, Group Therapy, Gait, Safety, Therapeutic Exercise, Transfers Frequency: 11 times per week Estimated Hrs Per Day: .25 hour per day Patient and/or Family Agrees t: Yes Safety Risks/Education Patient Education: Gait Training, Transfer Techniques, Correct Positioning, Safety Issues Teaching Recipient: Patient, Family Teaching Methods: Demonstration, Discussion Response to Teaching: Return Demonstration, Reinforcement Needed Discharge Recommendations Plan Pt will perform LE functional exercise, Transfer training, skilled ambulation training, bed mobility training, functional step training, and education. Therapy Discharge Recommendati: Assisted Living, Other, See Comments (home with children) Equpiment Recommendations-D/C: Front Wheeled Walker Time/GCodes Time In: 1035 Time Out: 1105 Total Billed Treatment Time: 30 Total Billed Treatment 1 visit EVAlyce 10' FA 20' HAROON INIGUEZ PT May 12, 2019 11:12
--- NOTE | 2019-05-12 11:33 | NUR ---
Weekly swing bed interdisciplinary team meeting held on this date. Patient goal is return home after rehabilitation therapies completed with goals met. Anticipate that patient will be able to reach this goal if she continues to make gains that she has been making. No adaptive equipment identified at this point. Discussed the team meeting findings with family et patient. Daughter Pauly has arranged for care givers when patient is d/c'd from the hospital. I will f/u with resources in [place], [place] to see if there is a daycare teacher list that they keep that family can have available et also try to find out what meal services are available if any.
[2019-05-12] MEDS ORDERED: GABAPENTIN 300 MG (NEURONTIN) CAP ONE (12:02)
[2019-05-12] MEDS ORDERED: inSUlin ASPART (NovoLOG) 1 UNIT/0.01 ML (CHARGE PER UNIT) ONE (12:08)
[2019-05-12] MEDS: GABAPENTIN 300 MG (NEURONTIN) CAP PO SCH ×2 (12:13→18:12)
[2019-05-12] MEDS: inSUlin ASPART (NovoLOG) 1 UNIT/0.01 ML (CHARGE PER UNIT) SC SCH ×3 (12:13→20:57)
--- NOTE | 2019-05-12 12:14 | Occupational Therapy Eval ---
OT Evaluation-General/PLF Medical Diagnosis Admission Date May 12, 2019 at 10:04 Medical Diagnosis: stroke/confusion Onset Date: May 06, 2019 Therapy Diagnosis Therapy Diagnosis: Weakness Height/Weight Height (Feet): 5 Height (Inches): 2.00 Weight (Pounds): 224 Weight (Ounces): 0.9 Precautions Precautions/Isolations: Fall Prevention, Standard Precautions Safety Interventions: Reorient-PRN Weight Bear Status Weight Bearing Restriction: Weight Bearing/Tolerated Referral Physician: FAWN Referral Reason: Activity Tolerance, Self Care, Evaluation/Treatment, Strengthening/ROM Medical History Pertinent Medical History: DM, GERD, HTN, Hypothroidism Additional Medical History Neuropathy, hiatal hernia, depression Current History Pt. found down at home. Came to ER with dehydration and CVA. Reviewed History: Yes Social History Home: Single Level Current Living Status: Spouse Entry Into Home: Stairs With Railing Steps Into Home: 1 ADL-Prior Level of Function SCALE: Activities may be completed with or without assistive devices. 1-Lybyinpczx-bytpshm completes the activity by him/herself with no assistance from a helper. 5-Set-up or Clean-up Assistance-helper sets up or cleans up; patient completes activity. [place] assists only prior to or following the activity. 4-Supervision or Touching Assistance-helper provides verbal cues and/or touching/steadying and/or contact guard assistance as patient completes activity. Assistance may be provided throughout the activity or intermittently. 3-Partial/Moderate Assistance-helper does LESS THAN HALF the effort. [place] lifts, holds or supports trunk or limbs, but provides less than half the effort. 2-Substantial/Maximal Assistance-helper does MORE THAN HALF the effort. [place] lifts or holds trunk or limbs and provides more than half the effort. 2-Nzmyywanh-rpnjas does ALL the effort. Patient does none of the effort to complete the activity. Or, the assistance of 2 or more helpers is required for the patient to complete the activity. If activity was not attempted, code reason: 7-Patient Refused. 9-Not Applicable-not attempted and the patient did not perform the activity before the current illness, exacerbation or injury. 10-Not Attempted due to Environmental Limitations-(lack of equipment, weather restraints, etc.). 88-Not Attempted due to Medical Conditions or Safety Concerns. Self Care: Independent Functional Cognition: Independent OT Current Status Subjective No pain reported but pt. states that she is very tired. Appearance Pt. up in chair. Agrees to work with OT. Mental Status/Objective Patient Orientation: Unable to Assess Pt. is able to verbalize to therapist but words are broken at times and pt. does demonstrate some confusion/poor memory at times. Attachments: Forbes Catheter, IV Current Hand Dominance: Right Upper Extremity ROM Pt. is able to fully flex bilateral shoulders, elbows, wrist, and fingers. Upper Extremity Coordination Impaired due to cognition. Demonstrates difficulty following cues. Upper Extremity Strength Right UE- 3/5 Left- 3+/5 ADL-Treatment Eating (QC): 5 (Family present and room. Family and pt. state that she was able to feed self breakfast with no difficulty after set up.) Oral Hygiene (QC): 7 Shower/Bathe Self (QC): 7 (Pt. states that she is too tired. Declines bathing at this time.) Upper Body Dressing (QC): 7 Lower Body Dressing (QC): 1 (Pt. unable to reach bilateral feet to doff slipper sock. Pt. does attempt to, with scooting to edge of chair and bending forward.) On/Off Footwear (QC): 1 Toileting Hygiene (QC): 7 Toilet Transfer (QC): 7 Other Treatments Pt. up in chair. Verbalizes that she has just had PT. Pt. very fatigued. Declines bathing at this time. Stands with min assist from chair but only able to stand approximately 1 minutes. Requests to sit down. Pt. verbalizes again that she is very tired. OT performed UE ROM assessment as well as manual muscle test. Pt. has full ROM but noticed right sided weakness upon assessement. Pt. handed brush and encouraged to brush hair. Pt. attempts to brush hair with back side of brush. Requires cues to turn brush around and brush correctly. Attempts to perform LE dressing, but is unable to reach feet at this time. Declines need at this time to toilet. Would like to recline back in chair. All needs met. Education OT Patient Education: Correct positioning, Exercise program, Modified ADL techn iques, Progress toward Goal/Update tx plan, Purpose of tx/functional activities, Reviewed precautions, Rehab process, Transfer techniques Teaching Recipient: Patient Teaching Methods: Demonstration, Discussion Response to Teaching: Verbalize Understanding, Return Demonstration OT Short Term Goals Short Term Goals Time Frame: May 19, 2019 Eating(FIM): 6 Grooming(FIM): 5 Bathing(FIM): 3 Upper Body Dressing(FIM): 4 Lower Body Dressing(FIM): 3 Toileting(FIM): 3 Transfers (B,C,W/C) (FIM): 4 Toilet/Commode Transfer(FIM): 4 Shower Transfer(FIM): 4 Additional Short Term Goals: 1-Demonstrate ADL Tasks, 2-Verbalize Understanding, 3-ImproveStrength/Jaida 1=Demonstrate adherence to instructed precautions during ADL tasks. 2=Patient will verbalize/demonstrate understanding of assistive devices/modifications for ADL. 3=Patient will improve strength/tolerance for activity to enable patient to perform ADL's. OT Research Hydraulic Engineer Goals Research Hydraulic Engineer Goals Time Frame: May 26, 2019 Eating (QC): 6 Oral Hygiene (QC): 5 Shower/Bathe Self (QC): 5 Upper Body Dressing (QC): 5 Lower Body Dressing (QC): 5 On/Off Footwear (QC): 5 Toileting Hygiene (QC): 5 Toilet/Commode Transfer (QC): 5 Additional Goals: 1-Demonstrate ADL Tasks, 2-Verbalize Understanding, 3- ImproveStrength/Jaida 1=Demonstrate adherence to instructed precautions during ADL tasks. 2=Patient will verbalize/demonstrate understanding of assistive devices/modifications for ADL. 3=Patient will improve strength/tolerance for activity to enable patient to perform ADL's. OT Education/Plan Problem List/Assessment Assessment: Decreased Activ Tolerance, Decreased UE Strength, Dependent Transfers, Impaired Bed Mobility, Impaired Cognition, Impaired Coordination, Impaired Funct Balance, Impaired I ADL's, Impaired Self-Care Skills, Restricted Funct UE ROM Discharge Recommendations Plan/Recommendations: Continue POC Therapy Discharge Recommendati: Post Acute OT Equpiment Recommendations-D/C: Hip Kit Treatment Plan/Plan of Care Treatment,Training & Education: Yes Patient would benefit from OT for education, treatment and training to promote independence in ADL's, mobility, safety and/or upper extremity function for ADL's. Plan of Care: ADL Retraining, Functional Mobility, UE Funct Exercise/Act Treatment Duration: May 26, 2019 Frequency: 5 times per week Estimated Hrs Per Day: .5 hour per day Agreement: Yes Rehab Potential: Good Time/GCodes Start Time: 11:25 Stop Time: 11:48 Total Time Billed (hr/min): 23 Billed Treatment Time 1, EVH x 10 minutes, ADL x 13 minutes SHRUTI GARBER OT May 12, 2019 12:14
--- NOTE | 2019-05-12 12:56 | Consultation-Cardiology ---
HPI-Cardiology Cardiology Consultation: Date of Consultation 05/12/19 Date of Admission Attending Physician Leena Rockwell MD Admitting Physician Tressa Stephens DO Consulting Physician Alyce ZEPEAD MD HPI: Time Seen by a Provider: 13:30 Chief Complaint: Cryptogenic stroke This is a 83-year-old lady who presented with acute encephalopathy, working diagnosis of acute ischemic stroke however negative carotid Dopplers. Negative telemetry for atrial fibrillation. Echocardiogram showed normal LV size and function. The patient is a poor historian and history is taken from daughter and the family. She denies any chest pain, palpitations, other cardiac symptoms. She was having lunch when I saw her. The patient has history of hypertension, diabetes. Review of Systems-Cardiology Review of Systems Constitutional: As described under HPI; No As described under HPI, No no symptoms reported, No chills, No fever, No lightheadedness Eyes: No As described under HPI, No no symptoms reported, No blindness, No blurred vision, No contact lenses, No drainage, No decreased acuity, No foreign body sensation, No pain, No vision change Ears/Nose/Throat: No As described under HPI, No no symptoms reported, No chronic hearing loss, No ear discharge, No ear pain, No nasal drainage, No ulcerations Respiratory: No no symptoms reported; As described under HPI; No As described under HPI, No cough, No orthopnea, No shortness of breath, No SOB with excertion Cardiovascular: No no symptoms reported; As described under HPI; No As described under HPI, No chest pain, No edema, No irregular heart rate, No lightheadedness, No palpitations Gastrointestinal: No no symptoms reported, No As described under HPI, No abdomen distended, No abdominal pain, No blood streaked bowels, No constipation, No diarrhea, No nausea, No vomiting, No stool coloration changes Genitourinary: No As described under HPI, No burning, No dysuria, No discharge, No frequency, No flank pain, No hematuria, No urgency : Yes : No Skin: No rash, No skin related problems, No ulcerations Psychiatric/Neurological: As described under HPI, other (confusion); No anxiety, No depression, No seizure, No focal weakness, No syncope Hematologic: No bleeding abnormalities SFG-Evtzjy-Cwpbmk Hx Patient Social History 2nd Hand Smoke Exposure: No ( smoked but quit many years ago) Immunizations Up To Date Tetanus Booster (TDap): Unknown Date of Pneumonia Vaccine: Aug 21, 2009 Date of Influenza Vaccine: Apr 20, 2011 Past Medical History PMH As described under Assessment. Family Medical History Family History: Cancer 03 MOTHER (STOMACH COLON ESOPHAGEAL) Cancer of colon 03 MOTHER 09 SISTER Family history: Cardiovascular disease 09 SISTER (HAS PACEMAKER) Family history: Diabetes mellitus 03 FATHER Myocardial infarction 03 FATHER No Family History of: Abdominal aortic aneurysm Bryan's disease Alcoholism Aphasia Cataract Chest pain Congenital heart disease Congestive heart failure Cystic fibrosis Dementia Dysphagia Family history: Allergy Family history: Alzheimer's disease Family history: Arthritis Family history: Asthma Family history: Coronary thrombosis Family history: Gastrointestinal disease Family history: Glaucoma Family history: Hypertension Family history: Osteoporosis Family history: Thyroid disorder Headache Hearing loss Heart disease Hereditary disease History of - anemia History of - respiratory disease History of drug abuse Human immunodeficiency virus (HIV) seropositivity Hypercholesterolemia Infertile Kidney disease Malignant neoplasm of lung Parkinson's disease Prostate cancer Psychotic disorder Seizure disorder Stroke Tuberculosis Visual impairment Allergies and Home Medications Allergies Coded Allergies: No Known Drug Allergies (Verified , 05/06/19) Home Medications Amlodipine Besylate 10 Mg Tablet, 10 MG PO DAILY, (Reported) LAST FILLED #90 09-14-18 Ascorbic Acid 1,000 Mg Tablet, 1,000 MG PO DAILY, (Reported) Aspirin/Caffeine 1 Each Tablet, 2 TAB PO BID PRN for PAIN-MILD, (Reported) Calcium Carbonate/Vitamin D3 1 Each Tablet, 1 TAB PO BID, (Reported) Clonidine HCl 0.1 Mg Tablet, 0.1 MG PO TID PRN for SYSTOLIC BLOOD PRESSURE, ( Reported) Esomeprazole Magnesium 40 Mg Capsule.dr, 40 MG PO DAILY, (Reported) Fexofenadine HCl 180 Mg Tablet, 180 MG PO HS PRN for ALLERGIES, (Reported) Gabapentin 300 Mg Capsule, 300-600 MG PO TID, (Reported) LAST FILLED #450 11-12-18 Gabapentin 300 Mg Capsule, 900 MG PO HS, (Reported) LAST FILLED #450 11-12-18 TAKES 3 (300MG) CAPSULES Guaifenesin 600 Mg Tab.er.12h, 600 MG PO TID PRN for CONGESTION, (Reported) Insulin Detemir 100 Unit/1 Ml Insuln.pen, 40 UNITS SC HS, (Reported) Insulin Lispro 100 Unit/1 Ml Insuln.pen, 16 UNITS SQ TIDAC, (Reported) Levothyroxine Sodium 25 Mcg Tablet, 25 MCG PO DAILY, (Reported) Levothyroxine Sodium 50 Mcg Tablet, 50 MCG PO DAILY, (Reported) Loperamide HCl 2 Mg Tablet, 2 MG PO QID PRN for DIARRHEA, (Reported) Magnesium Carbonate/Al Hydrox 1 Each Tab.chew, 1-2 TAB.CHEW PO QID PRN for HEARTBURN, (Reported) Multivitamin 1 Each Tablet, 1 TAB PO DAILY, (Reported) Oxycodone HCl 10 Mg Tablet, 10-20 MG PO BID PRN for PAIN-SEVERE, (Reported) Simvastatin 40 Mg Tablet, 40 MG PO HS, (Reported) Telmisartan 80 Mg Tablet, 80 MG PO HS, (Reported) LAST FILLED #90 09-14-18 Tolterodine Tartrate 4 Mg Cap.er.24h, 4 MG PO HS, (Reported) Patient Home Medication List Home Medication List Reviewed: Yes Physical Exam-Cardiology Physical Exam Vital Signs/I&O 05/12/19 08:00 O2 Delivery Room Air Capillary Refill : Constitutional: appears stated age; No apparent distress; well-developed, well- nourished HEENT: PERRL; No discharge; hearing is well preserved, oral hygience is good; No ulceration, No xanthelasmas are seen Neck: No carotid bruit; carotid pulses are 2 + bilaterally Respiratory: chest is bilaterally symmetric, lungs clear to auscultation Cardiovascular: regular rate-rhythm, S1 and S2 Gastrointestinal: soft, audible bowel sounds; No spleenomegaly Rectal: deferred Extremities: normal range of motion, non-tender, normal inspection; No clubbing, No cyanosis; no lower extremity edema bilateral; No significant edema Neurologic/Psychiatric: alert, normal mood/affect, disoriented x 3 Skin: normal color, warm/dry; No rash, No ulcerations ECG Impression ECG Initial ECG Rhythm: Normal Sinus A/P-Cardiology Assessment/Admission Diagnosis Cryptogenic stroke, Hypertension, Diabetes, Plan Patient presented with acute encephalopathy and the working diagnosis from the primary team is acute ischemic stroke. Carotids are negative. Telemetry over 48 hours is negative for atrial fibrillation. Echocardiogram showed normal LV size and function. I'll recommend a limited echocardiogram with bubble study to rule out intracardiac shunting. This fulfills a diagnosis of cryptogenic stroke. Implantable loop recorder is recommended. Will be done tomorrow. I discussed at length about atrial fibrillation with the family as well. If the patient does demonstrate atrial fibrillation, she may require oral anticoagulation in the future. Thank you for your consultation. Please call me if you have any questions. Waqas Zepeda MD, FACP, FACC, FSCAI, FHRS, CCDS Interventional Cardiology Cardiac Electrophysiology Vascular Medicine and Endovascular Interventions Clinical Quality Measures DVT/VTE Risk/Contraindication: Risk Factor Score Per Nursin Alyce ZEPEDA MD May 12, 2019 12:55
--- NOTE | 2019-05-12 14:36 | ST Cognitive Linguistic Eval ---
Speech Evaluation-General Medical Diagnosis stroke/confusion Onset Date: May 06, 2019 Therapy Diagnosis Therapy Diagnosis: Cognitive-communication Precautions Precautions: Fall Precautions/Isolations: Fall Prevention, Standard Precautions Referral Referring Physician: Dr. Rockwell Medical History Pertinent Medical History: DM, GERD, HTN, Hypothroidism Reviewed History: Yes Social History Current Living Status: Spouse Speech PLF-Current Status Prior Level of Function Patient lived at home with her and was independent for most of her daily needs. Subjective Patient was pleasant with the evaluation process. Language Eval: Auditory Comprehends Simple Yes/No Ques: Functional Indent/Objects Multiple Mcknight: Functional Ident/Pics in Multiple Mcknight: Functional Follows 1-Step Commands: Functional Follows Complex Directions: Mild Follows General Conversations: Functional Language Eval: Verbal Language Completes Spontaneous Greeting: Functional Produces Auto, Serial Info: Functional Imitates Simple Words/Phrases: Functional Word Finding: Mild Requests Basic Needs: Functional States Basic Personal Info: Functional Expresses Complex Ideas: Mild Cognitive Patient Orientation Patient appears oriented to all concepts. Objective Cognitive Domain Attention: WNL Memory: Mild Problem Solving: Mild Executive Functions: Mild Visuospatial Skills: Mild Composite Severity Rating: Mild Clock Drawing Severity Rating: Mild Objective Formal/Standardized Tests Speech, Language and Cognitive Assessment Tool Results Patient scored in the mild to moderate range of function Oral Motor/Speech Production Grossly within functional limits Impression Patient is a pleasant 83 year old female who was admitted to the hospital s/p CVA. Patient was initially seen for dysphagia, however she is on a regular diet without further issues. Her speech was initially affected to the point she was only able to express one word answers with decreased intelligibility. During the evaluation process today she was utilizing appropriate sentences/answers. Intelligibility is at 80% with occasional word finding difficulties. Patient will receive skilled ST for speech, language and cognitive improvement goals. Speech Short Term Goals Short Term Goals Short Term Goals 1) Patient will demonstrate 90% or greater with confrontational naming of objects with 10% clinician cues. 2) Patient will display 90% or greater with simple, multi-step commands, independently. 3) Patient will improve intelligibility to 100% without cues/repetitions. Speech Custodial Goals Custodial Goals Patient will demonstrate improved expressive and receptive languag skills for increased function and accuracy of ADL's in the least restrictive environment. Speech-Plan Patient/Family Goals Patient/Family Goals: Patient plans on returning home with her upon discharge. Patient has a large attentive family available for assistance as needed. Treatment Plan Speech Therapy Treatment Plan: Continue Plan of Care Patient will receive speech, language and cognitive therapy in order to return safely to her home. Treatment Duration: May 12, 2019 Frequency: 5 times per week Estimated Hrs Per Day: .25 hour per day Rehab Potential: Good Barriers to Learning: Patient has after affects of her new onset CVA. Pt/Family Agrees to Plan: Yes Safety Risks/Education Teaching Recipient: Patient, Family, Significant Other Teaching Methods: Discussion Response to Teaching: Verbalize Understanding Education Topics Provided: Safety within her room, communication of wants and needs. Time Speech Therapy Time In: 11:50 Speech Therapy Time Out: 12:05 Total Billed Time: 15 Billed Treatment Time 1, JALEN Qiu May 12, 2019 14:36
--- NOTE | 2019-05-12 14:52 | NUR ---
Received consult for MST Score. Per pt family, pt is eating well with no recent wt changes. At this time, pt is not at risk for malnutrition per ASPEN guidelines. Kendrick Banegas, MS, RD, LD Ext 133
[2019-05-12] MEDS: PIPERACILLIN/TAZOBACTAM (BULK) 4.5 GM in NS (IVPB) 100 ML IV SCH ×2 (15:54→22:09)
--- NOTE | 2019-05-12 15:54 | Physical Therapy Daily Note ---
PT Daily Note-Current Subjective Pt asleep in bed pre-tx. Pt agrees to PT this afternoon. Pt has spouse and sister present for tx. Pt reports continued 6/10 pain in the L neck Appearance Pt in bed with bed alarm set post-tx. Pt has nurse call light, room phone, and tray table in reach with all need met at this time. Mental Status Patient Orientation: Person, Confused, Mumbles Attachments: Forbes Catheter, IV Pt continues to mumble and repeat words and seems less aware of her surroundings this afternoon. Transfers SCALE: Activities may be completed with or without assistive devices. 6-Ibqmgtmhef-ytgjgvx completes the activity by him/herself with no assistance from a helper. 5-Set-up or Clean-up Assistance-helper sets up or cleans up; patient completes activity. [place] assists only prior to or following the activity. 4-Supervision or Touching Assistance-helper provides verbal cues and/or touching/steadying and/or contact guard assistance as patient completes activity. Assistance may be provided throughout the activity or intermittently. 3-Partial/Moderate Assistance-helper does LESS THAN HALF the effort. [place] lifts, holds or supports trunk or limbs, but provides less than half the effort. 2-Substantial/Maximal Assistance-helper does MORE THAN HALF the effort. [place] lifts or holds trunk or limbs and provides more than half the effort. 5-Nuypchwqx-qteszb does ALL the effort. Patient does none of the effort to complete the activity. Or, the assistance of 2 or more helpers is required for the patient to complete the activity. If activity was not attempted, code reason: 7-Patient Refused. 9-Not Applicable-not attempted and the patient did not perform the activity before the current illness, exacerbation or injury. 10-Not Attempted due to Environmental Limitations-(lack of equipment, weather restraints, etc.). 88-Not Attempted due to Medical Conditions or Safety Concerns. Roll Left to Right (QC): 3 (modA) Sit to Lying (QC): 2 (MaxA) Sit to Stand (QC): 3 (Jose) Pt required increased assist this session Weight Bearing Right Lower Extremity: Right Full Weight Bearing Left Lower Extremity: Left Full Weight Bearing Exercises Supine Ex: Ankle pumps, Heel Slides, Short Arc Quads, Straight leg raise, Hip abd/add Supine Reps: 20 (2 sets of 10) Seated Therapy Exercises: Sit to stand Seated Reps: 1 Treatments Pt performed supine bed exercises, and 1 sit to stand. Assessment Current Status: Poor Progress Pt was less aware of tx this afternoon. Upon sit to stand pt became very dizzy that did no go away with sitting or laying down. Pt was closing eyes and requested going to sleep. PT Weather Clerk Goals Weather Clerk Goals PT Longterm Goals Time Frame: May 19, 2019 Sit to Lying (QC): 4 (SBA) Lying-Sitting on Side/Bed(QC): 4 (SBA) Sit to Stand (QC): 4 (SBA) Roll Left to Right (QC): 6 Distance: 150' Walk 10 feet (QC): 4 (SBA) Walk 50ft with 2 Turns (QC): 4 (SBA) Walk 150 ft (QC): 4 (SBA) Gait Assistive Device: FWW 1 Step (curb) (QC): 3 (Jose) PT Plan Problem List Problem List: Activity Tolerance, Functional Strength, Safety, Balance, Gait, Transfer, Bed Mobility, ROM Treatment/Plan Treatment Plan: Continue Plan of Care Treatment Plan: Bed Mobility, Concurrent Therapy, Education, Functional Activity Jaida, Functional Strength, Gait, Safety, Therapeutic Exercise, Transfers Frequency: 11 times per week Estimated Hrs Per Day: .25 hour per day Patient and/or Family Agrees t: Yes Safety Risks/Education Patient Education: Gait Training, Transfer Techniques, Correct Positioning, Safety Issues Teaching Recipient: Patient Teaching Methods: Demonstration, Discussion Response to Teaching: Return Demonstration, Reinforcement Needed Time/GCodes Time In: 1522 Time Out: 1537 Total Billed Treatment Time: 15 Total Billed Treatment 1 visit FA HAROON APARICIO PT May 12, 2019 15:53
[2019-05-12 17:57] VITALS: BP 148/78
[2019-05-12] MEDS: ENOXAPARIN 40 MG/0.4 ML (LOVENOX) SYR SC SCH (18:12)
[2019-05-12] MEDS: MELATONIN 3 MG TABLET PO SCH (20:55)
[2019-05-12] MEDS: TOLTERODINE LA 4 MG (DETROL) CAP PO SCH (20:55)
[2019-05-12] MEDS: risperiDONE 1 MG (RisperDAL) TAB PO SCH (20:56)
[2019-05-12] MEDS: GABAPENTIN 600 MG (NEURONTIN) TAB PO SCH (20:56)
[2019-05-12] MEDS: MENTHOL/ZINC OXIDE (CALMOSEPTINE) 113 GM TUBE TOP SCH (20:58)
[2019-05-12] MEDS: DOCUSATE SODIUM 100 MG (COLACE) CAP PO SCH (20:59)
[2019-05-13] MEDS: inSUlin ASPART (NovoLOG) 1 UNIT/0.01 ML (CHARGE PER UNIT) SC SCH ×5 (00:46→21:45)
[2019-05-13] MEDS: LEVOTHYROXINE 75 MCG (LEVOTHROID) TABLET PO SCH (05:41)
[2019-05-13] MEDS: GABAPENTIN 300 MG (NEURONTIN) CAP PO SCH ×3 (05:41→17:45)
[2019-05-13 06:07] VITALS: BP 176/72
[2019-05-13 06:45] LABS: BASOPHILS % (AUTO) 1 % (0-10); EOSINOPHILS # (AUTO) 0.4 10^3/uL (0.0-0.3); EOSINOPHILS % (AUTO) 7 % (0-10); HEMATOCRIT 39 % (35-52); HEMOGLOBIN 12.4 G/DL (11.5-16.0); LYMPHOCYTES % (AUTO) 31 % (12-44); MEAN CORPUSCULAR HEMOGLOBIN 29 PG (25-34); MEAN CORPUSCULAR HGB CONC 32 G/DL (32-36); MEAN CORPUSCULAR VOLUME 91 FL (80-99); MEAN PLATELET VOLUME 11.6 FL (7.4-10.4); MONOCYTES # (AUTO) 0.6 X 10^3 (0.0-1.0); MONOCYTES % (AUTO) 10 % (0-12); NEUTROPHILS # (AUTO) 3.3 X 10^3 (1.8-7.8); NEUTROPHILS % (AUTO) 52 % (42-75); PLATELET COUNT 198 10^3/uL (130-400); WHITE BLOOD COUNT 6.3 10^3/uL (4.3-11.0)
[2019-05-13 07:04] LABS: CALCIUM 7.9 MG/DL (8.5-10.1); CREATININE SERUM 0.9 MG/DL (0.60-1.30)
[2019-05-13] MEDS ORDERED: KCL 20 MEQ TAB (K-DUR) PO NR (07:30)
--- NOTE | 2019-05-13 08:37 | Progress Note - Hospitalist ---
Subjective HPI/CC On Admission Date Seen by Provider: May 13, 2019 Time Seen by Provider: 08:33 Subjective/Events-last exam Pt is sleeping but arouses easily. Denies any complaints. No family currently at bedside. Discussed with RN. Objective Exam Vital Signs Vital Signs Date Time Temp Pulse Resp B/P (MAP) Pulse Ox O2 Delivery O2 Flow Rate FiO2 05/13/19 07:00 61 05/13/19 06:07 36.8 22 176/72 (106) 97 Room Air Capillary Refill : General Appearance: No Apparent Distress, Chronically ill Respiratory: Lungs Clear, No Respiratory Distress Cardiovascular: Regular Rate, Rhythm, No Murmur Gastrointestinal: Normal Bowel Sounds, Soft Neurologic/Psychiatric: Alert, Oriented x3 Results/Procedures Lab Laboratory Tests 05/13/19 05:55 Patient resulted labs reviewed. 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
[2019-05-13] MEDS: MAGNESIUM 1 GM/100 ML IVPB 100 ML IV SCH ×2 (09:04→10:29)
[2019-05-13] MEDS: PANTOPRAZOLE 40 MG (PROTONIX) TAB PO SCH (09:05)
[2019-05-13] MEDS: ASPIRIN E.C. 81 MG (ECOTRIN) TAB PO SCH ×2 (09:05→10:30)
[2019-05-13] MEDS: amLODIPine 10 MG (NORVASC) TAB PO SCH (09:05)
--- NOTE | 2019-05-13 09:42 | Physical Therapy Daily Note ---
PT Daily Note-Current Subjective Patient is alert in bed with daughter present and agrees to PT. States she needs to toilet before walking. Pain Numeric Pain Scale: 0-No Pain Location: No Pain Reported Mental Status Patient Orientation: Normal For Age Transfers SCALE: Activities may be completed with or without assistive devices. 2-Zegcwvedos-fjrcbuf completes the activity by him/herself with no assistance from a helper. 5-Set-up or Clean-up Assistance-helper sets up or cleans up; patient completes activity. [place] assists only prior to or following the activity. 4-Supervision or Touching Assistance-helper provides verbal cues and/or touching/steadying and/or contact guard assistance as patient completes ac tivity. Assistance may be provided throughout the activity or intermittently. 3-Partial/Moderate Assistance-helper does LESS THAN HALF the effort. [place] lifts, holds or supports trunk or limbs, but provides less than half the effort. 2-Substantial/Maximal Assistance-helper does MORE THAN HALF the effort. [place] lifts or holds trunk or limbs and provides more than half the effort. 8-Wifetwblt-vjgxgt does ALL the effort. Patient does none of the effort to complete the activity. Or, the assistance of 2 or more helpers is required for the patient to complete the activity. If activity was not attempted, code reason: 7-Patient Refused. 9-Not Applicable-not attempted and the patient did not perform the activity before the current illness, exacerbation or injury. 10-Not Attempted due to Environmental Limitations-(lack of equipment, weather restraints, etc.). 88-Not Attempted due to Medical Conditions or Safety Concerns. Transfers (B, C, W/C): 5 Roll Left to Right (QC): 5 Sit to Stand (QC): 5 Weight Bearing Right Lower Extremity: Right Full Weight Bearing Left Lower Extremity: Left Full Weight Bearing Gait Training Does the Patient Walk?: Yes Gait: 5 Distance: 100' Walk 10 feet (QC): 5 Walk 50 ft with 2 Turns(QC): 5 Gait Assistive Device: FWW Slow karan, step through pattern, bilateral toe out and pronation Assessment Patient able to sit to EOB with minimal assistance and stand without assistance. Patient performed toileting independently. Demonstrated good ambulation [facility] anics with FWW. Transferred patient to sitting in chair at conclusion of treatment. PT Dog Beautician Goals Jail Goals PT Jail Goals Time Frame: May 19, 2019 Sit to Lying (QC): 4 (SBA) Lying-Sitting on Side/Bed(QC): 4 (SBA) Sit to Stand (QC): 4 (SBA) Roll Left to Right (QC): 6 Distance: 150' Walk 10 feet (QC): 4 (SBA) Walk 50ft with 2 Turns (QC): 4 (SBA) Walk 150 ft (QC): 4 (SBA) Gait Assistive Device: FWW 1 Step (curb) (QC): 3 (Jose) PT Plan Treatment/Plan Treatment Plan: Continue Plan of Care Treatment Plan: Bed Mobility, Concurrent Therapy, Education, Functional Activity Jaida, Functional Strength, Gait, Safety, Therapeutic Exercise, Transfers Frequency: 11 times per week Estimated Hrs Per Day: .25 hour per day Patient and/or Family Agrees t: Yes Time/GCodes Time In: 905 Time Out: 921 Total Billed Treatment Time: 16 Total Billed Treatment 1 visit FA 16min JACK RYAN PT May 13, 2019 09:42
[2019-05-13] MEDS: DOCUSATE SODIUM 100 MG (COLACE) CAP PO SCH ×2 (10:22→21:48)
[2019-05-13] MEDS: MENTHOL/ZINC OXIDE (CALMOSEPTINE) 113 GM TUBE TOP SCH ×2 (10:29→21:46)
--- NOTE | 2019-05-13 12:01 | Occupational Ther Daily Note ---
OT Current Status-Daily Note Subjective Pt seen in recliner chair, present. Pt states no pain, but tired. Pt c/o intermittent dizziness since the stroke. Pt stumbles and repeats words throughout session. Pt agreeable to OT tx session. ADL-Treatment Therapy Code Descriptions/Definitions Functional [place] Measure: 0=Not Assessed/NA 4=Minimal Assistance 1=Total Assistance 5=Supervision or Setup 2=Maximal Assistance 6=Modified [place] 3=Moderate Assistance 7=Complete IndependenceSCALE: Activities may be completed with or without assistive devices. 4-Bxmnkybivu-pjudous completes the activity by him/herself with no assistance from a helper. 5-Set-up or Clean-up Assistance-helper sets up or cleans up; patient completes activity. [place] assists only prior to or following the activity. 4-Supervision or Touching Assistance-helper provides verbal cues and/or touching/steadying and/or contact guard assistance as patient completes activity. Assistance may be provided throughout the activity or intermittently. 3-Partial/Moderate Assistance-helper does LESS THAN HALF the effort. [place] lifts, holds or supports trunk or limbs, but provides less than half the effort. 2-Substantial/Maximal Assistance-helper does MORE THAN HALF the effort. [place] lifts or holds trunk or limbs and provides more than half the effort. 8-Uaxdkjgwe-etsyoo does ALL the effort. Patient does none of the effort to complete the activity. Or, the assistance of 2 or more helpers is required for the patient to complete the activity. If activity was not attempted, code reason: 7-Patient Refused. 9-Not Applicable-not attempted and the patient did not perform the activity before the current illness, exacerbation or injury. 10-Not Attempted due to Environmental Limitations-(lack of equipment, weather restraints, etc.). 88-Not Attempted due to Medical Conditions or Safety Concerns. Oral Hygiene (QC): 5 (s/u) Shower/Bathe Self (QC): 3 (Pt completes sponge bath at chair, completes UE with SBA, bottom/ jean with SBA and s/u, and LE with min A. Pt unable to reach BLE.) Upper Body Dressing (QC): 4 (intermittent assist for gown changing.) Lower Body Dressing (QC): 2 (Max A for sock doff/ donning. Pt states she is dizzy and refuses sock completion) Toileting Hygiene (QC): 4 (intermittent assist with s/u for wipes) Toilet Transfer (QC): 4 (CGA) Other Treatment Pt repeats words multiple times, stumbles through words intermittently while conversing. Pt agreeable to sponge bath, completes in / beside chair. present through session, able to provide info not expressed by pt. Pt states, "Polo Marco Antonio" multiple times; expresses pt has skin condition similar to words expressed by pt. Pt nods in agreement and continues talking. Pt unable to reach feet, feet washed by OT and socks changed. Pt's toes curled under; upon further evaluation pt's states toes have been curled since stroke. pt and educated on stroke's effect, muscle inhibition techniques utilized to decrease pull of toe flexors, pt's toes left with toes curled under but less forced flexion than prior. Pt left in chair with call light in reach, all needs met, present. Education OT Patient Education: Correct positioning, Disease process, Instructions to caregiver, Modified ADL techniques, Purpose of tx/functional activities, Safety issues Teaching Recipient: Patient Teaching Methods: Demonstration, Discussion Response to Teaching: Verbalize Understanding, Return Demonstration, Reinforcement Needed OT Short Term Goals Short Term Goals Time Frame: May 19, 2019 Eating(FIM): 6 Grooming(FIM): 5 Bathing(FIM): 3 Upper Body Dressing(FIM): 4 Lower Body Dressing(FIM): 3 Toileting(FIM): 3 Transfers (B,C,W/C) (FIM): 4 Toilet/Commode Transfer(FIM): 4 Shower Transfer(FIM): 4 Additional Short Term Goals: 1-Demonstrate ADL Tasks, 2-Verbalize Understanding, 3-ImproveStrength/Jaida 1=Demonstrate adherence to instructed precautions during ADL tasks. 2=Patient will verbalize/demonstrate understanding of assistive devices/modifications for ADL. 3=Patient will improve strength/tolerance for activity to enable patient to perform ADL's. OT Planning Supervisor Goals Planning Supervisor Goals Time Frame: May 26, 2019 Eating (QC): 6 Oral Hygiene (QC): 5 Shower/Bathe Self (QC): 5 Upper Body Dressing (QC): 5 Lower Body Dressing (QC): 5 On/Off Footwear (QC): 5 Toileting Hygiene (QC): 5 Toilet/Commode Transfer (QC): 5 Additional Goals: 1-Demonstrate ADL Tasks, 2-Verbalize Understanding, 3- ImproveStrength/Jaida 1=Demonstrate adherence to instructed precautions during ADL tasks. 2=Patient will verbalize/demonstrate understanding of assistive devices/modifications for ADL. 3=Patient will improve strength/tolerance for activity to enable patient to perform ADL's. OT Education/Plan Problem List/Assessment Assessment: Decreased Activ Tolerance, Decreased Safety Aware, Decreased UE Strength, Impaired Coordination, Impaired I ADL's, Impaired Self-Care Skills Discharge Recommendations Plan/Recommendations: Continue POC Therapy Discharge Recommendati: Scheduled Assistance, Post Acute OT Treatment Plan/Plan of Care Treatment,Training & Education: Yes Patient would benefit from OT for education, treatment and training to promote independence in ADL's, mobility, safety and/or upper extremity function for ADL's. Plan of Care: ADL Retraining, Functional Mobility, UE Funct Exercise/Act Treatment Duration: May 26, 2019 Frequency: 5 times per week Estimated Hrs Per Day: .5 hour per day Agreement: Yes Rehab Potential: Good Time/GCodes Start Time: 11:30 Stop Time: 11:53 Total Time Billed (hr/min): 23 Billed Treatment Time 1, ADL x2 (23) JUICE WRIGHT OTR May 13, 2019 12:01
--- NOTE | 2019-05-13 12:33 | Speech Therapy Daily Note ---
Speech Daily Progress Note Subjective Date Seen by Provider: May 13, 2019 Time Seen by Provider: 00:15 Patient sitting up in chair waiting on lunch when I entered. Objective Patient completed q/a regarding daily needs with 90% given minimal cues. Assessment Assessment Current Status: Good Progress Treatment Plan Continue Plan of Care Speech Short Term Goals Short Term Goals Short Term Goals 1) Patient will demonstrate 90% or greater with confrontational naming of objects with 10% clinician cues. 2) Patient will display 90% or greater with simple, multi-step commands, inde pendently. 3) Patient will improve intelligibility to 100% without cues/repetitions. Speech Group Home Goals Warranty Manager Goals Patient will demonstrate improved expressive and receptive languag skills for increased function and accuracy of ADL's in the least restrictive environment. Speech-Plan Patient/Family Goals Patient/Family Goals: Patient plans on returning home with her upon discharge. Treatment Plan Speech Therapy Treatment Plan: Continue Plan of Care Patient is doing well. She states she wants to go home. Treatment Duration: May 18, 2019 Frequency: 5 times per week Estimated Hrs Per Day: .25 hour per day Rehab Potential: Good Barriers to Learning: New onset CVA Pt/Family Agrees to Plan: Yes Safety Risks/Education Teaching Recipient: Patient, Significant Other Teaching Methods: Demonstration, Discussion Response to Teaching: Verbalize Understanding, Return Demonstration Education Topics Provided: Continued safety within her room Time Speech Therapy Time In: 12:10 Speech Therapy Time Out: 12:25 Total Billed Time: 15 Billed Treatment Time [address] May 13, 2019 12:33
[2019-05-13] MEDS ORDERED: LIDOCAINE 1% INJ 20 ML 20 ML VIAL ONE (14:02)
--- NOTE | 2019-05-13 14:46 | Physical Therapy Daily Note ---
PT Daily Note-Current Subjective Patient and family agree to PT at this time. Patient is alert and has just returned to bed. Pain Numeric Pain Scale: 0-No Pain Location: No Pain Reported Mental Status Patient Orientation: Normal For Age Transfers SCALE: Activities may be completed with or without assistive devices. 3-Fgctcozsxf-dtkxali completes the activity by him/herself with no assistance from a helper. 5-Set-up or Clean-up Assistance-helper sets up or cleans up; patient completes activity. [place] assists only prior to or following the activity. 4-Supervision or Touching Assistance-helper provides verbal cues and/or touching/steadying and/or contact guard assistance as patient completes activity. Assistance may be provided throughout the activity or intermittently. 3-Partial/Moderate Assistance-helper does LESS THAN HALF the effort. [place] lifts, holds or supports trunk or limbs, but provides less than half the effort. 2-Substantial/Maximal Assistance-helper does MORE THAN HALF the effort. [place] lifts or holds trunk or limbs and provides more than half the effort. 8-Vsogmqats-xkwxan does ALL the effort. Patient does none of the effort to complete the activity. Or, the assistance of 2 or more helpers is required for the patient to complete the activity. If activity was not attempted, code reason: 7-Patient Refused. 9-Not Applicable-not attempted and the patient did not perform the activity before the current illness, exacerbation or injury. 10-Not Attempted due to Environmental Limitations-(lack of equipment, weather restraints, etc.). 88-Not Attempted due to Medical Conditions or Safety Concerns. Transfers (B, C, W/C): 5 Roll Left to Right (QC): 5 Sit to Lying (QC): 5 Sit to Stand (QC): 5 Weight Bearing Right Lower Extremity: Right Full Weight Bearing Left Lower Extremity: Left Full Weight Bearing Gait Training Does the Patient Walk?: Yes Gait: 5 Distance: 225' Walk 10 feet (QC): 5 Walk 50 ft with 2 Turns(QC): 5 Walk 150 ft (QC): 5 Gait Assistive Device: FWW Slightly antalgic, step through pattern, toe out and pronation, required rest breaks. Exercises Seated Therapy Exercises: Ankle pumps, Long arc quads, Hip flexion, Hip abd/add Seated Reps: 10 Assessment Patient able to complete transfers and bed mobility with no assistance and minimal cues. Tolerated exercises sitting at EOB well. Patient demonstrated improved ability to ambulate further distance but required some rest breaks during ambulation d/t dizziness and fatigue. Patient had some neck pain upon return to room and was positioned supine in bed with pillows under neck to support. PT Long-Term Goals Long-Term Goals PT Long-Term Goals Time Frame: May 19, 2019 Sit to Lying (QC): 4 (SBA) Lying-Sitting on Side/Bed(QC): 4 (SBA) Sit to Stand (QC): 4 (SBA) Roll Left to Right (QC): 6 Distance: 150' Walk 10 feet (QC): 4 (SBA) Walk 50ft with 2 Turns (QC): 4 (SBA) Walk 150 ft (QC): 4 (SBA) Gait Assistive Device: FWW 1 Step (curb) (QC): 3 (Jose) PT Plan Treatment/Plan Treatment Plan: Continue Plan of Care Treatment Plan: Bed Mobility, Concurrent Therapy, Education, Functional Activity Jaida, Functional Strength, Gait, Safety, Therapeutic Exercise, Transfers Frequency: 11 times per week Estimated Hrs Per Day: .25 hour per day Patient and/or Family Agrees t: Yes Time/GCodes Time In: 1414 Time Out: 1429 Total Billed Treatment Time: 15 Total Billed Treatment 1 visit FA 15min JACK RYAN PT May 13, 2019 14:46
--- NOTE | 2019-05-13 14:50 | NUR ---
Pt to lab courier via bed
--- NOTE | 2019-05-13 15:23 | Cardiology Progress Note ---
Cardiology SOAP Progress Note Subjective: No cardiac complaints. Objective: I&O/Vital Signs 05/13/19 05/13/19 05/13/19 06:07 07:00 12:30 Temp 36.8 Pulse 71 61 63 Resp 22 B/P (MAP) 176/72 (106) Pulse Ox 97 O2 Delivery Room Air 05/13/19 00:00 Intake Total 2040 ml Output Total 3750 ml Balance -1710 ml Weight (Pounds): 224 Weight (Ounces): 0.9 Weight (Calculated Kilograms): 101.405391 Constitutional: appears stated age; No apparent distress; well-developed, well- nourished Respiratory: chest is bilaterally symmetric, lungs clear to auscultation Cardiovascular: regular rate-rhythm, S1 and S2 Gastrointestional: soft, audible bowel sounds; No spleenomegaly Extremities: normal range of motion, non-tender, normal inspection; No clubbing, No cyanosis; no lower extremity edema bilateral; No significant edema Neurologic/Psychiatric: alert, normal mood/affect, disoriented x 3 Skin: normal color, warm/dry; No rash, No ulcerations Results/Procedures: Labs Laboratory Tests 05/13/19 00:37: Glucometer 323H 05/13/19 04:29: Glucometer 186H 05/13/19 05:55: White Blood Count 6.3, Red Blood Count 4.26L, Hemoglobin 12.4, Hematocrit 39, Mean Corpuscular Volume 91, Mean Corpuscular Hemoglobin 29, Mean Corpuscular Hemoglobin Concent 32, Red Cell Distribution Width 15.0H, Platelet Count 198, Mean Platelet Volume 11.6H, Neutrophils (%) (Auto) 52, Lymphocytes (%) (Auto) 31, Monocytes (%) (Auto) 10, Eosinophils (%) (Auto) 7, Basophils (%) (Auto) 1, Neutrophils # (Auto) 3.3, Lymphocytes # (Auto) 2.0, Monocytes # (Auto) 0.6, Eosinophils # (Auto) 0.4H, Basophils # (Auto) 0.0, Sodium Level 142, Potassium Level 3.0L, Chloride Level 105, Carbon Dioxide Level 26, Anion Gap 11, Blood Urea Nitrogen 4L, Creatinine 0.90, Estimat Glomerular Filtration Rate 60, BUN/Creatinine Ratio 4, Glucose Level 172H, Calcium Level 7.9L, Magnesium Level 1.4L 05/13/19 08:19: Glucometer 165H 05/13/19 11:14: Glucometer 324H A/P: Assessment/Dx: Cryptogenic stroke, Hypertension, Diabetes, Plan: Patient presented with acute encephalopathy and the working diagnosis from the primary team is acute ischemic stroke. Carotids are negative. Telemetry over 48 hours is negative for atrial fibrillation. Echocardiogram showed normal LV size and function. Limited echocardiogram with bubble study was negative for intracardiac shunting. This fulfills a diagnosis of cryptogenic stroke. Implantable loop recorder is recommended. Therefore implantable loop recorder will be done today. I discussed at length about atrial fibrillation with the family as well. If the patient does demonstrate atrial fibrillation, she may require oral anticoagulation in the future. Thank you for your consultation. Please call me if you have any questions. Waqas Zepeda MD, FACP, FACC, FSCAI, FHRS, CCDS Interventional Cardiology Cardiac Electrophysiology Vascular Medicine and Endovascular Interventions Alyce ZEPEDA MD May 13, 2019 3:23 pm
--- NOTE | 2019-05-13 15:24 | Implantation of Loop Monitor ---
Implant of Loop Monitior PROCEDURE PHYSICIAN: Waqas Zepeda MD IMPLANTATION OF LOOP MONITOR REPORT DATE OF PROCEDURE: 05/13/19 PERFORMING PHYSICIAN: Dr. Justino Zepeda. INDICATION: Cryptogenic stroke PREOP DIAGNOSIS: Cryptogenic stroke POSTOP DIAGNOSIS: Cryptogenic stroke, s/p implantation of loop recorder. PROCEDURE DETAILS: The patient is a 83 female with cryptogenic stroke requiring long-term surveillance to rule out atrial fibrillation. Therefore implantable loop recorder was discussed and agreed with the patient. Informed consent was taken. All risks and complications were discussed at length. The patient was draped and prepped in the usual sterile fashion. Local anesthesia was lidocaine, which was given in the substernal area close to the 4th intercostal space. Loop monitor was implanted according to the protocol. Steri-Strips were placed at the end of the procedure. There were no complications and the patient tolerated the procedure well. ANESTHESIA: Local anesthesia with lidocaine. COMPLICATIONS: None CONTRAST/FLUOROSCOPY: None CONCLUSION: 1. Successful implantation of loop monitor for represent extra. 2. No complication and the patient tolerated the procedure well. Waqas Zepeda MD, RS, CCDS Cardiac Electrophysiology Alyce ZEPEDA MD May 13, 2019 3:24 pm
--- NOTE | 2019-05-13 16:00 | NUR ---
Pt arrived back to floor, L chest dressing CDI, pt denies pain or discomfort at this time, will continue to monitor.
[2019-05-13 17:19] VITALS: BP 148/69
[2019-05-13] MEDS: GABAPENTIN 600 MG (NEURONTIN) TAB PO SCH (21:44)
[2019-05-13] MEDS: ENOXAPARIN 40 MG/0.4 ML (LOVENOX) SYR SC SCH (21:44)
[2019-05-13] MEDS: MELATONIN 3 MG TABLET PO SCH (21:44)
[2019-05-13] MEDS: risperiDONE 1 MG (RisperDAL) TAB PO SCH (21:45)
[2019-05-13] MEDS: TOLTERODINE LA 4 MG (DETROL) CAP PO SCH (21:45)
[2019-05-14] VITALS: BP 147/62
[2019-05-14 05:13] VITALS: BP 148/64
[2019-05-14 05:42] LABS: BUN/CREATININE RATIO 6; CALCIUM 8.2 MG/DL (8.5-10.1); CARBON DIOXIDE 28 MMOL/L (21-32); CHLORIDE 104 MMOL/L (98-107); CREATININE SERUM 0.79 MG/DL (0.60-1.30); GFR ESTIMATED > 60; GLUCOSE 183 MG/DL (70-105); MAGNESIUM 1.7 MG/DL (1.6-2.4); POTASSIUM 3.6 MMOL/L (3.6-5.0); SODIUM 141 MMOL/L (135-145)
[2019-05-14] MEDS: inSUlin ASPART (NovoLOG) 1 UNIT/0.01 ML (CHARGE PER UNIT) SC SCH ×4 (05:44→22:00)
[2019-05-14] MEDS: LEVOTHYROXINE 75 MCG (LEVOTHROID) TABLET PO SCH (05:50)
[2019-05-14] MEDS: GABAPENTIN 300 MG (NEURONTIN) CAP PO SCH ×3 (05:50→17:56)
[2019-05-14 08:00] VITALS: BP 195/85
--- NOTE | 2019-05-14 09:00 | NUR ---
Physical Therapist Raysa reports that patient is having some increased word salad et increased weakness today when participating with therapy. She was not able to ambulate as far. This nurse to room to visit with Yanique et Dr. Rockwell also came in et completed a physical assessment. Yanique's strength was equal et strong in all extremities, her smile was equal with no facial drooping noted, her conversational speech was oriented et appropriate, she did have some word salad noted when reading from the script Dr. Rockwell handed her. Yanique did report that she did not sleep at all last night. It is felt that this has contributed to her current physical symptoms however, would like to perform a repeat CT today for further assessment. I notified daughter Pauly who also asked if Yaniqeu had slept at all last night. Daughter feels that this has made Yanique more symptomatic as well. Will continue to follow along et support as needed.
--- NOTE | 2019-05-14 09:07 | Progress Note - Hospitalist ---
Subjective HPI/CC On Admission Date Seen by Provider: May 14, 2019 Time Seen by Provider: 09:05 Subjective/Events-last exam Called to bedside due to slurred speech. PT notes weaker than yesterday. Patient alert and oriented but having more word finding issues. Reports she did not sleep well last night. Objective Exam Vital Signs Vital Signs Date Time Temp Pulse Resp B/P (MAP) Pulse Ox O2 Delivery O2 Flow Rate FiO2 05/14/19 12:31 64 05/14/19 09:25 129/64 (85) 05/14/19 09:00 Room Air 05/14/19 08:00 36.0 20 97 Capillary Refill : Less Than 3 Seconds General Appearance: No Apparent Distress, Chronically ill Respiratory: Lungs Clear, No Respiratory Distress Cardiovascular: Regular Rate, Rhythm, No Murmur Neurologic/Psychiatric: Alert, Oriented x3; No Motor Weakness; Other (stuttering speech, difficulty with word finding) Results/Procedures Lab Laboratory Tests 05/14/19 04:20 Patient resulted labs reviewed. Assessment/Plan Assessment and Plan Assess & Plan/Chief Complaint Slurred Speech - Will repeat CT head to evaluate for ICH - If not improvement consider MRI - Patient reports she thinks it's due to poor sleep - Otherwise no focal deficits - Continue MEDICAL STAFF MANAGER Acute CVA HTN -Likely CVA despite unremarkable imaging, family states she is unable to tolerate another MRI -Continue ASA and Lipitor -Carotid dopplers mild plaque with 60% stenosis -PT/OT/MEDICAL STAFF MANAGER Diarrhea- predates admission Hypokalemia- refractory Hypomagnesemia - Continue electrolyte replacement as needed - Diarrhea improving Insulin Dependent Type 2 diabetes mellitus with hyperglycemia - Continue home regimen-Continue sliding scale insulin and ACHS BS checks Clinical Quality Measures DVT/VTE Risk/Contraindication: Risk Factor Score Per Nursin EMMY AUGUSTINE MD May 14, 2019 09:07
[2019-05-14 09:25] VITALS: BP 129/64
--- NOTE | 2019-05-14 09:41 | Physical Therapy Daily Note ---
PT Daily Note-Current Subjective Patient is alert and agrees to PT at this time. Patient reports that she did not sleep at all last night. During exercise, patient reports severe pain in R foot/toes that she had all night, but reports she had this before hospitalization as well. During tx, patient made some statements that did not make sense. Pain Numeric Pain Scale: 10-Worst Possible Pain Location: Right Location Body Site: Foot Pain Description: Ache Mental Status Patient Orientation: Person, Confused, Place, Time, Situation Patient demonstrates increased word repetition and jumbling of sentences. Makes statements that do not make sense. Transfers SCALE: Activities may be completed with or without assistive devices. 6-Oativmayzt-ygdyvzk completes the activity by him/herself with no assistance from a helper. 5-Set-up or Clean-up Assistance-helper sets up or cleans up; patient completes activity. [place] assists only prior to or following the activity. 4-Supervision or Touching Assistance-helper provides verbal cues and/or touching/steadying and/or contact guard assistance as patient completes activity. Assistance may be provided throughout the activity or intermittently. 3-Partial/Moderate Assistance-helper does LESS THAN HALF the effort. [place] lifts, holds or supports trunk or limbs, but provides less than half the effort. 2-Substantial/Maximal Assistance-helper does MORE THAN HALF the effort. [place] l ifts or holds trunk or limbs and provides more than half the effort. 3-Snpkfegeq-rrkdwu does ALL the effort. Patient does none of the effort to complete the activity. Or, the assistance of 2 or more helpers is required for the patient to complete the activity. If activity was not attempted, code reason: 7-Patient Refused. 9-Not Applicable-not attempted and the patient did not perform the activity before the current illness, exacerbation or injury. 10-Not Attempted due to Environmental Limitations-(lack of equipment, weather restraints, etc.). 88-Not Attempted due to Medical Conditions or Safety Concerns. Transfers (B, C, W/C): 6 Roll Left to Right (QC): 6 Sit to Stand (QC): 6 Weight Bearing Right Lower Extremity: Right Full Weight Bearing Left Lower Extremity: Left Full Weight Bearing Gait Training Does the Patient Walk?: Yes Gait: 5 Distance: 100' Walk 10 feet (QC): 5 Walk 50 ft with 2 Turns(QC): 5 Gait Assistive Device: FWW Step through pattern, toe out/pronation, required rests on walker. Exercises Supine Ex: Ankle pumps, Heel Slides, Straight leg raise, Hip abd/add Supine Reps: 10 Assessment Patient able to tolerate supine exercises with some pain in R foot. During ambulation, patient reported dizziness and was unable to walk as far as previously. Patient demonstrated increased "word salad" and listless behavior compared to previous day; MD was notified. During tx, MD addressed patient's regression in orientation and talking, recommending another CT scan. Patient's and sister present for discussion. PT Chcf Goals Chcf Goals PT Chcf Goals Time Frame: May 19, 2019 Sit to Lying (QC): 4 (SBA) Lying-Sitting on Side/Bed(QC): 4 (SBA) Sit to Stand (QC): 4 (SBA) Roll Left to Right (QC): 6 Distance: 150' Walk 10 feet (QC): 4 (SBA) Walk 50ft with 2 Turns (QC): 4 (SBA) Walk 150 ft (QC): 4 (SBA) Gait Assistive Device: FWW 1 Step (curb) (QC): 3 (Jose) PT Plan Treatment/Plan Treatment Plan: Continue Plan of Care Treatment Plan: Bed Mobility, Concurrent Therapy, Education, Functional Activity Jaida, Functional Strength, Gait, Safety, Therapeutic Exercise, Transfers Frequency: 11 times per week Estimated Hrs Per Day: .25 hour per day Patient and/or Family Agrees t: Yes Time/GCodes Time In: 847 Time Out: 900 Total Billed Treatment Time: 13 Total Billed Treatment 1 visit FA 13min JACK RYAN PT May 14, 2019 09:41
--- NOTE | 2019-05-14 10:39 | Diagnostic Imaging Report ---
PROCEDURE: CT head without contrast. TECHNIQUE: Multiple contiguous axial images were obtained through the brain without the use of intravenous contrast. Auto Exposure Controls were utilized during the CT exam to meet ALARA standards for radiation dose reduction. INDICATION: Slurred speech. Evaluate for stroke. COMPARISON: CT head on 05/09/2019 FINDINGS: No large acute territorial ischemia, mass, or hemorrhage. Chronic microvascular disease is seen in the periventricular and subcortical white matter. The ventricles and cortical sulci are prominent, consistent with generalized volume loss. The basilar cisterns are patent and unremarkable. The calvarium is intact. The visualized paranasal sinuses are clear. IMPRESSION: 1. No large acute territorial ischemia, mass, or hemorrhage. 2. Chronic microvascular disease. 3. Generalized volume loss. Dictated by: Dictated on workstation # [id number]
--- NOTE | 2019-05-14 10:50 | Speech Therapy Daily Note ---
Speech Daily Progress Note Subjective Date Seen by Provider: May 14, 2019 Time Seen by Provider: 00:15 Patient was sitting upright in chair in room. Patient was pleasant and cooperative during today's session. Patient's , sister, and daughter were all present. Objective Patient participated in general question task with 60% success independently requiring minimal-moderate cues for success. Patient demonstrated verbal paraphasias and was 80% intelligible, occasionally requiring direct models and verbal cues. Patient was able to follow all simple commands in today's session. Assessment Assessment Current Status: Good Progress Treatment Plan Continue Plan of Care Speech Short Term Goals Short Term Goals Short Term Goals 1) Patient will demonstrate 90% or greater with confrontational naming of objects with 10% clinician cues. 2) Patient will display 90% or greater with simple, multi-step commands, independently. 3) Patient will improve intelligibility to 100% without cues/repetitions. Speech Fdc Goals Floral Merchandiser Goals Patient will demonstrate improved expressive and receptive languag skills for increased function and accuracy of ADL's in the least restrictive environment. Speech-Plan Patient/Family Goals Patient/Family Goals: Return home to [place] Treatment Plan Speech Therapy Treatment Plan: Continue Plan of Care Patient was cooperative and demonstrates paraphasias which impact verbal expression skills. Patient occasionally requires direct models and verbal cues for intelligibility and moderate assist with general questions targeting cognition and communication. Treatment Duration: May 18, 2019 Frequency: 5 times per week Estimated Hrs Per Day: .25 hour per day Rehab Potential: Good Barriers to Learning: verbal expression and cognition Pt/Family Agrees to Plan: Yes Safety Risks/Education Teaching Recipient: Patient Teaching Methods: Discussion Response to Teaching: Verbalize Understanding Education Topics Provided: therapy goals and safety Time Speech Therapy Time In: 10:00 Speech Therapy Time Out: 10:15 Total Billed Time: 15 Billed Treatment Time 1 AILYN Patricia ARGENIS TEIXEIRA May 14, 2019 10:49
[2019-05-14] MEDS: DOCUSATE SODIUM 100 MG (COLACE) CAP PO SCH ×2 (10:54→21:00)
[2019-05-14] MEDS: amLODIPine 10 MG (NORVASC) TAB PO SCH (10:55)
[2019-05-14] MEDS: PANTOPRAZOLE 40 MG (PROTONIX) TAB PO SCH (10:55)
[2019-05-14] MEDS: MENTHOL/ZINC OXIDE (CALMOSEPTINE) 113 GM TUBE TOP SCH ×2 (10:56→21:00)
--- NOTE | 2019-05-14 10:56 | NUR ---
NOTE THAT COMPUTER FROZE UP -- THIS RN TURNED IT OFF AND BACK ON 2 DIFFERENT TIMES -- CONTINUED TO BE NOT WORK --
--- NOTE | 2019-05-14 11:43 | NUR ---
provided prayer and Communion.
--- NOTE | 2019-05-14 11:45 | Occupational Ther Daily Note ---
OT Current Status-Daily Note Subjective Pt sitting in chair, agrees to treatment. ADL-Treatment Pt declined bathing or dressing at this time, states she was just up to restroom and has already completed grooming tasks this morning. Does agree to UE activity while seated. Pt performed AROM exercises x10 reps at all joints with rest breaks between exercises. Pt reports fatigue with activity. Pt performed sit to stand with supervision and practiced transfer chair <-> EOB with FWW with supervision for safety. Pt requests to remain seated in chair after session. All needs met and family present after session Therapy Code Descriptions/Definitions Functional [place] Measure: 0=Not Assessed/NA 4=Minimal Assistance 1=Total Assistance 5=Supervision or Setup 2=Maximal Assistance 6=Modified [place] 3=Moderate Assistance 7=Complete IndependenceSCALE: Activities may be completed with or without assistive devices. 7-Eoxqaozefq-jexupls completes the activity by him/herself with no assistance from a helper. 5-Set-up or Clean-up Assistance-helper sets up or cleans up; patient completes activity. [place] assists only prior to or following the activity. 4-Supervision or Touching Assistance-helper provides verbal cues and/or touching/steadying and/or contact guard assistance as patient completes activity. Assistance may be provided throughout the activity or intermittently. 3-Partial/Moderate Assistance-helper does LESS THAN HALF the effort. [place] lifts, holds or supports trunk or limbs, but provides less than half the effort. 2-Substantial/Maximal Assistance-helper does MORE THAN HALF the effort. [place] lifts or holds trunk or limbs and provides more than half the effort. 3-Qkrkgawvr-tjogtm does ALL the effort. Patient does none of the effort to complete the activity. Or, the assistance of 2 or more helpers is required for the patient to complete the activity. If activity was not attempted, code reason: 7-Patient Refused. 9-Not Applicable-not attempted and the patient did not perform the activity before the current illness, exacerbation or injury. 10-Not Attempted due to Environmental Limitations-(lack of equipment, weather restraints, etc.). 88-Not Attempted due to Medical Conditions or Safety Concerns. OT Short Term Goals Short Term Goals Time Frame: May 19, 2019 Eating(FIM): 6 Grooming(FIM): 5 Bathing(FIM): 3 Upper Body Dressing(FIM): 4 Lower Body Dressing(FIM): 3 Toileting(FIM): 3 Transfers (B,C,W/C) (FIM): 4 Toilet/Commode Transfer(FIM): 4 Shower Transfer(FIM): 4 Additional Short Term Goals: 1-Demonstrate ADL Tasks, 2-Verbalize Understanding, 3-ImproveStrength/Jaida 1=Demonstrate adherence to instructed precautions during ADL tasks. 2=Patient will verbalize/demonstrate understanding of assistive devices/modifications for ADL. 3=Patient will improve strength/tolerance for activity to enable patient to perform ADL's. OT Intermediate Goals Intermediate Goals Time Frame: May 26, 2019 Eating (QC): 6 Oral Hygiene (QC): 5 Shower/Bathe Self (QC): 5 Upper Body Dressing (QC): 5 Lower Body Dressing (QC): 5 On/Off Footwear (QC): 5 Toileting Hygiene (QC): 5 Toilet/Commode Transfer (QC): 5 Additional Goals: 1-Demonstrate ADL Tasks, 2-Verbalize Understanding, 3- ImproveStrength/Jaida 1=Demonstrate adherence to instructed precautions during ADL tasks. 2=Patient will verbalize/demonstrate understanding of assistive devices/modifications for ADL. 3=Patient will improve strength/tolerance for activity to enable patient to perform ADL's. OT Education/Plan Discharge Recommendations Plan/Recommendations: Continue POC Treatment Plan/Plan of Care Patient would benefit from OT for education, treatment and training to promote independence in ADL's, mobility, safety and/or upper extremity function for ADL's. Plan of Care: ADL Retraining, Functional Mobility, UE Funct Exercise/Act Treatment Duration: May 26, 2019 Frequency: 5 times per week Estimated Hrs Per Day: .5 hour per day Agreement: Yes Rehab Potential: Good Time/GCodes Start Time: 11:25 Stop Time: 11:40 Total Time Billed (hr/min): 15 Billed Treatment Time 1 visit, EX(15minutes) JOVI ANTUNEZ OT May 14, 2019 11:45
--- NOTE | 2019-05-14 12:04 | Cardiology Progress Note ---
Cardiology SOAP Progress Note Subjective: No cardiac complaints. Objective: I&O/Vital Signs 05/14/19 05/14/19 05/14/19 05/14/19 00:44 05:13 07:00 08:00 Temp 36.7 36.0 Pulse 70 67 70 73 Resp 16 20 B/P (MAP) 148/64 (92) 195/85 (121) Pulse Ox 96 97 O2 Delivery Room Air Room Air 05/14/19 05/14/19 09:00 09:25 Pulse 68 B/P (MAP) 129/64 (85) O2 Delivery Room Air 05/14/19 00:00 Intake Total 1440 ml Balance 1440 ml Weight (Pounds): 224 Weight (Ounces): 0.9 Weight (Calculated Kilograms): 101.752035 Constitutional: appears stated age; No apparent distress; well-developed, well- nourished Respiratory: chest is bilaterally symmetric, lungs clear to auscultation Cardiovascular: regular rate-rhythm, S1 and S2 Gastrointestional: soft, audible bowel sounds; No spleenomegaly Extremities: normal range of motion, non-tender, normal inspection; No c lubbing, No cyanosis; no lower extremity edema bilateral; No significant edema Neurologic/Psychiatric: alert, normal mood/affect, disoriented x 3 Skin: normal color, warm/dry; No rash, No ulcerations Results/Procedures: Labs Laboratory Tests 05/13/19 16:22: Glucometer 306H 05/13/19 20:16: Glucometer 351H 05/14/19 04:20: Sodium Level 141, Potassium Level 3.6, Chloride Level 104, Carbon Dioxide Level 28, Anion Gap 9, Blood Urea Nitrogen 5L, Creatinine 0.79, Estimat Glomerular Filtration Rate > 60, BUN/Creatinine Ratio 6, Glucose Level 183H, Calcium Level 8.2L, Magnesium Level 1.7 05/14/19 11:06: Glucometer 362H A/P: Assessment/Dx: Cryptogenic stroke, Hypertension, Diabetes, Plan: Patient presented with acute encephalopathy and the working diagnosis from the primary team is acute ischemic stroke. Carotids are negative. Telemetry over 48 hours is negative for atrial fibrillation. Echocardiogram showed normal LV size and function. Limited echocardiogram with bubble study was negative for intracardiac shunting. This fulfills a diagnosis of cryptogenic stroke. Implantable loop recorder done 05/13/2019. I discussed at length about atrial fibrillation with the family as well. If the patient does demonstrate atrial fibrillation, she may require oral anticoagulation in the future. Thank you for your consultation. Please call me if you have any questions. Waqas Zepeda MD, FACP, FACC, FSCAI, FHRS, CCDS Interventional Cardiology Cardiac Electrophysiology Vascular Medicine and Endovascular Interventions Alyce ZEPEDA MD May 14, 2019 12:04
--- NOTE | 2019-05-14 13:10 | Physical Therapy Daily Note ---
PT Daily Note-Current Subjective Patient and agree to PT at this time. Patient reports she was able to nap earlier today and is feeling better. Pain Numeric Pain Scale: 0-No Pain Location: No Pain Reported Mental Status Patient Orientation: Person, Place, Time, Situation Transfers SCALE: Activities may be completed with or without assistive devices. 8-Kzjoqyytwq-isbqsgj completes the activity by him/herself with no assistance from a helper. 5-Set-up or Clean-up Assistance-helper sets up or cleans up; patient completes activity. [place] assists only prior to or following the activity. 4-Supervision or Touching Assistance-helper provides verbal cues and/or touching/steadying and/or contact guard assistance as patient completes activity. Assistance may be provided throughout the activity or intermittently. 3-Partial/Moderate Assistance-helper does LESS THAN HALF the effort. [place] lifts, holds or supports trunk or limbs, but provides less than half the effort. 2-Substantial/Maximal Assistance-helper does MORE THAN HALF the effort. [place] lifts or holds trunk or limbs and provides more than half the effort. 5-Jdgdizooy-mdndpw does ALL the effort. Patient does none of the effort to complete the activity. Or, the assistance of 2 or more helpers is required for the patient to complete the activity. If activity was not attempted, code reason: 7-Patient Refused. 9-Not Applicable-not attempted and the patient did not perform the activity before the current illness, exacerbation or injury. 10-Not Attempted due to Environmental Limitations-(lack of equipment, weather restraints, etc.). 88-Not Attempted due to Medical Conditions or Safety Concerns. Sit to Stand (QC): 5 Weight Bearing Right Lower Extremity: Right Full Weight Bearing Left Lower Extremity: Left Full Weight Bearing Gait Training Does the Patient Walk?: Yes Gait: 5 Distance: 300' Walk 10 feet (QC): 5 Walk 50 ft with 2 Turns(QC): 5 Walk 150 ft (QC): 5 Gait Assistive Device: FWW Step through, normal pattern. Required rest break towards end of walk d/t fatigue. Exercises Seated Therapy Exercises: Ankle pumps, Sit to stand, Long arc quads, Hip flexion, Hip abd/add Seated Reps: 10 (2 sets) Standing: Marching, Weight shifts Standing Reps: 10 Assessment Patient appears much more aware and able to ambulate further than during previous treatment. Required breaks during ambulation to rest d/t fatigue and was fatigued upon completion of treatment. Patient demonstrated good understanding of seated exercises and able to perform some standing exercises after ambulating. Plan to continue progressing exercises per patient tolerance. PT Retirement Goals Resident Services Supervisor Goals PT Resident Services Supervisor Goals Time Frame: May 19, 2019 Sit to Lying (QC): 4 (SBA) Lying-Sitting on Side/Bed(QC): 4 (SBA) Sit to Stand (QC): 4 (SBA) Roll Left to Right (QC): 6 Distance: 150' Walk 10 feet (QC): 4 (SBA) Walk 50ft with 2 Turns (QC): 4 (SBA) Walk 150 ft (QC): 4 (SBA) Gait Assistive Device: FWW 1 Step (curb) (QC): 3 (Jose) PT Plan Treatment/Plan Treatment Plan: Continue Plan of Care Treatment Plan: Bed Mobility, Concurrent Therapy, Education, Functional Activity Jaida, Functional Strength, Gait, Safety, Therapeutic Exercise, Transfers Frequency: 11 times per week Estimated Hrs Per Day: .25 hour per day Patient and/or Family Agrees t: Yes Time/GCodes Time In: 1234 Time Out: 1249 Total Billed Treatment Time: 15 Total Billed Treatment 1 visit FA 15min JACK RYAN PT May 14, 2019 13:10
--- NOTE | 2019-05-14 16:43 | NUR ---
FSBS WAS 405 -- CALLED DR AUGUSTINE MAXIMUM AMOUNT ON SSI WAS 9 UNITS -- DR AUGUSTINE RETURNED MY CALL TO GIVE THE 9 UNITS
--- NOTE | 2019-05-14 17:27 | NUR ---
NOTE THAT FAMILY AND PT DISCUSSED CODE STATUS AND PT WANTED TO BE FULL CODE -- DR AUGUSTINE WAS CALLED AND SHE WILL ADDRESS ORDER
[2019-05-14] MEDS: ENOXAPARIN 40 MG/0.4 ML (LOVENOX) SYR SC SCH (18:53)
[2019-05-14 18:59] VITALS: BP 163/79
[2019-05-14 19:06] VITALS: BP 148/64
[2019-05-14] MEDS: TOLTERODINE LA 4 MG (DETROL) CAP PO SCH (21:58)
[2019-05-14] MEDS: GABAPENTIN 600 MG (NEURONTIN) TAB PO SCH (21:58)
[2019-05-14] MEDS: risperiDONE 1 MG (RisperDAL) TAB PO SCH (21:58)
[2019-05-14] MEDS: MELATONIN 3 MG TABLET PO SCH (21:59)
[2019-05-15 05:11] LABS: BUN/CREATININE RATIO 11; CALCIUM 8.2 MG/DL (8.5-10.1); CARBON DIOXIDE 26 MMOL/L (21-32); CHLORIDE 102 MMOL/L (98-107); CREATININE SERUM 0.73 MG/DL (0.60-1.30); GFR ESTIMATED > 60; GLUCOSE 190 MG/DL (70-105); MAGNESIUM 1.4 MG/DL (1.6-2.4); POTASSIUM 3.7 MMOL/L (3.6-5.0); SODIUM 139 MMOL/L (135-145)
[2019-05-15 06:18] VITALS: BP 131/68
[2019-05-15] MEDS: inSUlin ASPART (NovoLOG) 1 UNIT/0.01 ML (CHARGE PER UNIT) SC SCH ×4 (06:44→21:27)
[2019-05-15] MEDS: GABAPENTIN 300 MG (NEURONTIN) CAP PO SCH ×3 (06:44→18:50)
[2019-05-15] MEDS: LEVOTHYROXINE 75 MCG (LEVOTHROID) TABLET PO SCH (06:44)
[2019-05-15] MEDS: PANTOPRAZOLE 40 MG (PROTONIX) TAB PO SCH (08:06)
[2019-05-15] MEDS: ASPIRIN E.C. 81 MG (ECOTRIN) TAB PO SCH (08:06)
[2019-05-15] MEDS: DOCUSATE SODIUM 100 MG (COLACE) CAP PO SCH ×2 (08:06→22:26)
[2019-05-15] MEDS: amLODIPine 10 MG (NORVASC) TAB PO SCH (08:06)
--- NOTE | 2019-05-15 09:03 | Physical Therapy Daily Note ---
PT Daily Note-Current Subjective Patient is more alert today and reports she slept last night. Pain Numeric Pain Scale: 0-No Pain Location: No Pain Reported Mental Status Patient Orientation: Person, Time, Situation Transfers SCALE: Activities may be completed with or without assistive devices. 9-Eymhvtosih-zhjzztt completes the activity by him/herself with no assistance from a helper. 5-Set-up or Clean-up Assistance-helper sets up or cleans up; patient completes activity. [place] assists only prior to or following the activity. 4-Supervision or Touching Assistance-helper provides verbal cues and/or touching/steadying and/or contact guard assistance as patient completes activity. Assistance may be provided throughout the activity or intermittently. 3-Partial/Moderate Assistance-helper does LESS THAN HALF the effort. [place] lif ts, holds or supports trunk or limbs, but provides less than half the effort. 2-Substantial/Maximal Assistance-helper does MORE THAN HALF the effort. [place] lifts or holds trunk or limbs and provides more than half the effort. 8-Hmlxaqjpq-tnjdvc does ALL the effort. Patient does none of the effort to complete the activity. Or, the assistance of 2 or more helpers is required for the patient to complete the activity. If activity was not attempted, code reason: 7-Patient Refused. 9-Not Applicable-not attempted and the patient did not perform the activity before the current illness, exacerbation or injury. 10-Not Attempted due to Environmental Limitations-(lack of equipment, weather restraints, etc.). 88-Not Attempted due to Medical Conditions or Safety Concerns. Roll Left to Right (QC): 4 Sit to Lying (QC): 5 Sit to Stand (QC): 5 Chair/Rre-mv-Tjpxx Xfer(QC): 4 Bed to/from Chair: 4 Weight Bearing Right Lower Extremity: Right Full Weight Bearing Left Lower Extremity: Left Full Weight Bearing Gait Training Does the Patient Walk?: Yes Distance: 175' Walk 10 feet (QC): 4 Walk 50 ft with 2 Turns(QC): 4 Walk 150 ft (QC): 4 Gait Assistive Device: FWW extended UE's with FWW use/severely diminished endurance with functional activity Exercises Seated Therapy Exercises: Ankle pumps, Long arc quads Seated Reps: 15 Assessment Patient fatigues with minimal activity and ceases treatment by closing eyes. PT placed breakfast tray in front of patient and she became more alert and began to feed herself. Dr. Rockwell notified of behaviors. PT Firm Administrator Goals Mcc Goals PT Mcc Goals Time Frame: May 19, 2019 Sit to Lying (QC): 4 (SBA) Lying-Sitting on Side/Bed(QC): 4 (SBA) Sit to Stand (QC): 4 (SBA) Roll Left to Right (QC): 6 Distance: 150' Walk 10 feet (QC): 4 (SBA) Walk 50ft with 2 Turns (QC): 4 (SBA) Walk 150 ft (QC): 4 (SBA) Gait Assistive Device: FWW 1 Step (curb) (QC): 3 (Jose) PT Plan Treatment/Plan Treatment Plan: Continue Plan of Care Treatment Plan: Bed Mobility, Concurrent Therapy, Education, Functional Activity Jaida, Functional Strength, Gait, Safety, Therapeutic Exercise, Transfers Frequency: 11 times per week Estimated Hrs Per Day: .25 hour per day Patient and/or Family Agrees t: Yes Time/GCodes Time In: 815 Time Out: 830 Total Billed Treatment Time: 15 Total Billed Treatment 1 visit FA 15 min JACK RYAN PT May 15, 2019 09:03
[2019-05-15] MEDS: MENTHOL/ZINC OXIDE (CALMOSEPTINE) 113 GM TUBE TOP SCH ×2 (09:42→22:26)
[2019-05-15 18:10] VITALS: BP 139/64
[2019-05-15] MEDS: MELATONIN 3 MG TABLET PO SCH (21:14)
[2019-05-15] MEDS: TOLTERODINE LA 4 MG (DETROL) CAP PO SCH (21:15)
[2019-05-15] MEDS: risperiDONE 1 MG (RisperDAL) TAB PO SCH (21:15)
[2019-05-15] MEDS: GABAPENTIN 600 MG (NEURONTIN) TAB PO SCH (21:15)
[2019-05-15] MEDS: ENOXAPARIN 40 MG/0.4 ML (LOVENOX) SYR SC SCH (21:27)
[2019-05-16 05:23] LABS: BUN/CREATININE RATIO 15; CALCIUM 8.4 MG/DL (8.5-10.1); CARBON DIOXIDE 27 MMOL/L (21-32); CHLORIDE 101 MMOL/L (98-107); CREATININE SERUM 0.75 MG/DL (0.60-1.30); GFR ESTIMATED > 60; GLUCOSE 182 MG/DL (70-105); MAGNESIUM 1.3 MG/DL (1.6-2.4); SODIUM 138 MMOL/L (135-145)
[2019-05-16 06:00] VITALS: BP 140/80
[2019-05-16] MEDS: inSUlin ASPART (NovoLOG) 1 UNIT/0.01 ML (CHARGE PER UNIT) SC SCH ×4 (06:02→21:00)
[2019-05-16] MEDS: GABAPENTIN 300 MG (NEURONTIN) CAP PO SCH ×3 (06:08→16:42)
[2019-05-16] MEDS: LEVOTHYROXINE 75 MCG (LEVOTHROID) TABLET PO SCH (06:08)
[2019-05-16] MEDS: PANTOPRAZOLE 40 MG (PROTONIX) TAB PO SCH (09:28)
[2019-05-16] MEDS: ASPIRIN E.C. 81 MG (ECOTRIN) TAB PO SCH (09:28)
[2019-05-16] MEDS: amLODIPine 10 MG (NORVASC) TAB PO SCH (09:28)
[2019-05-16] MEDS: DOCUSATE SODIUM 100 MG (COLACE) CAP PO SCH ×2 (09:29→21:00)
[2019-05-16] MEDS: MENTHOL/ZINC OXIDE (CALMOSEPTINE) 113 GM TUBE TOP SCH ×2 (09:29→21:00)
[2019-05-16] MEDS: FLUTICASONE NASAL SPRAY (FLONASE) 16 GM BTL NS SCH ×2 (11:30→21:00)
[2019-05-16 16:42] VITALS: BP 145/75
[2019-05-16] MEDS ORDERED: fentaNYL INJECTION 100 MCG/2 ML AMP IVP ONE (17:00)
[2019-05-16] MEDS ORDERED: fentaNYL INJECTION 100 MCG/2 ML AMP ONE (17:12)
[2019-05-16 18:30] VITALS: BP 147/63
[2019-05-16] MEDS: risperiDONE 1 MG (RisperDAL) TAB PO SCH (20:58)
[2019-05-16] MEDS: ENOXAPARIN 40 MG/0.4 ML (LOVENOX) SYR SC SCH (20:59)
[2019-05-16] MEDS: TOLTERODINE LA 4 MG (DETROL) CAP PO SCH (20:59)
[2019-05-16] MEDS: GABAPENTIN 600 MG (NEURONTIN) TAB PO SCH (20:59)
[2019-05-16] MEDS: MELATONIN 3 MG TABLET PO SCH (22:49)
[2019-05-17 06:00] VITALS: BP 138/62
[2019-05-17] MEDS: inSUlin ASPART (NovoLOG) 1 UNIT/0.01 ML (CHARGE PER UNIT) SC SCH ×6 (06:04→21:42)
[2019-05-17] MEDS: GABAPENTIN 300 MG (NEURONTIN) CAP PO SCH ×3 (06:11→17:10)
[2019-05-17] MEDS: LEVOTHYROXINE 75 MCG (LEVOTHROID) TABLET PO SCH (06:11)
[2019-05-17 07:25] LABS: CREATININE SERUM 0.92 MG/DL (0.60-1.30); MAGNESIUM 1.2 MG/DL (1.6-2.4); POTASSIUM 4.1 MMOL/L (3.6-5.0)
--- NOTE | 2019-05-17 09:40 | Physical Therapy Daily Note ---
PT Daily Note-Current Subjective Patient c/o fatigue and right gluteal pain at rest. Reluctantly agrees to PT. Begin to cry during treatment due to right gluteal pain. RN and physician notified. Pain Numeric Pain Scale: 10-Worst Possible Pain Location: Right Location Body Site: Back (gluteal) Pain Description: Ache Mental Status Patient Orientation: Confused Transfers SCALE: Activities may be completed with or without assistive devices. 5-Lanvxodbtx-powkcnz completes the activity by him/herself with no assistance from a helper. 5-Set-up or Clean-up Assistance-helper sets up or cleans up; patient completes activity. [place] assists only prior to or following the activity. 4-Supervision or Touching Assistance-helper provides verbal cues and/or touching/steadying and/or contact guard assistance as patient completes activity. Assistance may be provided throughout the activity or intermittently. 3-Partial/Moderate Assistance-helper does LESS THAN HALF the effort. [place] lifts, holds or supports trunk or limbs, but provides less than half the effort. 2-Substantial/Maximal Assistance-helper does MORE THAN HALF the effort. [place] lifts or holds trunk or limbs and provides more than half the effort. 2-Rugvvnkor-gedxaj does ALL the effort. Patient does none of the effort to complete the activity. Or, the assistance of 2 or more helpers is required for the patient to complete the activity. If activity was not attempted, code reason: 7-Patient Refused. 9-Not Applicable-not attempted and the patient did not perform the activity before the current illness, exacerbation or injury. 10-Not Attempted due to Environmental Limitations-(lack of equipment, weather restraints, etc.). 88-Not Attempted due to Medical Conditions or Safety Concerns. Transfers (B, C, W/C): 3 Roll Left to Right (QC): 3 Sit to Lying (QC): 3 Sit to Stand (QC): 3 Chair/Whb-gg-Siqhu Xfer(QC): 3 Bed to/from Chair: 3 patient impulsive to return to sit from standing position and not in alignment with recliner or bed. Education with patient on safety concerns with this hebert hnique Weight Bearing Right Lower Extremity: Right Full Weight Bearing Left Lower Extremity: Left Full Weight Bearing Gait Training Does the Patient Walk?: Yes Distance: 75' Walk 10 feet (QC): 3 Walk 50 ft with 2 Turns(QC): 3 Walk 150 ft (QC): 88 Gait Assistive Device: FWW trunk flexed posture and extended UE's with FWW use with multiple standing recovery periods due to fatigue Exercises Seated Therapy Exercises: Ankle pumps, Long arc quads, Hip flexion Seated Reps: 12 (AAROM due to patient not performing full ROM and ceasing due to fatigue) Assessment Patient is very emotional today. Family present. Patient is not progressing with treatment plan and fatigues with minimal activity. Education with patient and family on increasing activity and OOB activity to increase strength and functional mobility, however, patient demanded to return to bed after treatment. PT Automotive Starter Repairer Goals Automotive Starter Repairer Goals PT Automotive Starter Repairer Goals Time Frame: May 19, 2019 Sit to Lying (QC): 4 (SBA) Lying-Sitting on Side/Bed(QC): 4 (SBA) Sit to Stand (QC): 4 (SBA) Roll Left to Right (QC): 6 Distance: 150' Walk 10 feet (QC): 4 (SBA) Walk 50ft with 2 Turns (QC): 4 (SBA) Walk 150 ft (QC): 4 (SBA) Gait Assistive Device: FWW 1 Step (curb) (QC): 3 (Jose) PT Plan Treatment/Plan Treatment Plan: Continue Plan of Care Treatment Plan: Bed Mobility, Concurrent Therapy, Education, Functional Activity Jaida, Functional Strength, Gait, Safety, Therapeutic Exercise, Transfers Frequency: 11 times per week Estimated Hrs Per Day: .25 hour per day Patient and/or Family Agrees t: Yes Time/GCodes Time In: 840 Time Out: 903 Total Billed Treatment Time: 23 Total Billed Treatment 1 visit EX 10 min FA 13 min JACK RYAN PT May 17, 2019 09:40
[2019-05-17] MEDS: MAGNESIUM 1 GM/100 ML IVPB 100 ML IV SCH ×3 (10:16→13:05)
[2019-05-17] MEDS: ASPIRIN E.C. 81 MG (ECOTRIN) TAB PO SCH (10:21)
[2019-05-17] MEDS: PANTOPRAZOLE 40 MG (PROTONIX) TAB PO SCH (10:21)
[2019-05-17] MEDS: amLODIPine 10 MG (NORVASC) TAB PO SCH (10:21)
[2019-05-17] MEDS: DOCUSATE SODIUM 100 MG (COLACE) CAP PO SCH ×2 (10:22→21:43)
[2019-05-17] MEDS: FLUTICASONE NASAL SPRAY (FLONASE) 16 GM BTL NS SCH ×2 (10:22→21:41)
[2019-05-17] MEDS: MENTHOL/ZINC OXIDE (CALMOSEPTINE) 113 GM TUBE TOP SCH ×2 (10:23→21:41)
--- NOTE | 2019-05-17 13:15 | Cardiology Progress Note ---
Cardiology SOAP Progress Note Subjective: No cardiac complaints. Objective: I&O/Vital Signs 05/17/19 05/17/19 05/17/19 05/17/19 07:00 08:30 09:00 12:12 Pulse 67 68 Pulse Ox 95 O2 Delivery Room Air Room Air 05/17/19 00:00 Intake Total 1660 ml Balance 1660 ml Weight (Pounds): 224 Weight (Ounces): 0.9 Weight (Calculated Kilograms): 101.399104 Constitutional: appears stated age; No apparent distress; well-developed, well- nourished Respiratory: chest is bilaterally symmetric, lungs clear to auscultation Cardiovascular: regular rate-rhythm, S1 and S2 Gastrointestional: soft, audible bowel sounds; No spleenomegaly Extremities: normal range of motion, non-tender, normal inspection; No clubbing, No cyanosis; no lower extremity edema bilateral; No significant edema Neurologic/Psychiatric: alert, normal mood/affect, disoriented x 3 Skin: normal color, warm/dry; No rash, No ulcerations Results/Procedures: Labs Laboratory Tests 05/16/19 16:42: Glucometer 343H 05/16/19 20:53: Glucometer 217H 05/17/19 05:25: Glucometer 203H 05/17/19 06:20: Sodium Level 137, Potassium Level 4.1, Chloride Level 98, Carbon Dioxide Level 28, Anion Gap 11, Blood Urea Nitrogen 9, Creatinine 0.92, Estimat Glomerular Filtration Rate 58, BUN/Creatinine Ratio 10, Glucose Level 190H, Calcium Level 9.0, Magnesium Level 1.2L 05/17/19 11:27: Glucometer 348H A/P: Assessment/Dx: Cryptogenic stroke, Hypertension, Diabetes, Plan: Patient presented with acute encephalopathy and the working diagnosis from the primary team is acute ischemic stroke. Carotids are negative. Telemetry over 48 hours is negative for atrial fibrillation. Echocardiogram showed normal LV size and function. Limited echocardiogram with bubble study was negative for intracardiac shunting. This fulfills a diagnosis of cryptogenic stroke. Implantable loop recorder done 05/13/2019. Thank you for your consultation. Please call me if you have any questions. Waqas Zepeda MD, FACP, FACC, FSCAI, FHRS, CCDS Interventional Cardiology Cardiac Electrophysiology Vascular Medicine and Endovascular Interventions Alyce ZEPEDA MD May 17, 2019 1:15 pm POS
--- NOTE | 2019-05-17 13:39 | Physical Therapy Daily Note ---
PT Daily Note-Current Subjective Much more alert and able to actively participate with therapy this p.m. Pain Numeric Pain Scale: 5-Moderate Pain Location: Right Location Body Site: Back (gluteal region) Pain Description: Ache Mental Status Patient Orientation: Person, Time, Situation Attachments: IV Transfers SCALE: Activities may be completed with or without assistive devices. 4-Zpxpwjzxbn-wckyauy completes the activity by him/herself with no assistance from a helper. 5-Set-up or Clean-up Assistance-helper sets up or cleans up; patient completes activity. [place] assists only prior to or following the activity. 4-Supervision or Touching Assistance-helper provides verbal cues and/or touching/steadying and/or contact guard assistance as patient completes activity . Assistance may be provided throughout the activity or intermittently. 3-Partial/Moderate Assistance-helper does LESS THAN HALF the effort. [place] lifts, holds or supports trunk or limbs, but provides less than half the effort. 2-Substantial/Maximal Assistance-helper does MORE THAN HALF the effort. [place] lifts or holds trunk or limbs and provides more than half the effort. 7-Rjyycatdy-xwpggm does ALL the effort. Patient does none of the effort to complete the activity. Or, the assistance of 2 or more helpers is required for the patient to complete the activity. If activity was not attempted, code reason: 7-Patient Refused. 9-Not Applicable-not attempted and the patient did not perform the activity before the current illness, exacerbation or injury. 10-Not Attempted due to Environmental Limitations-(lack of equipment, weather restraints, etc.). 88-Not Attempted due to Medical Conditions or Safety Concerns. Sit to Stand (QC): 4 Weight Bearing Right Lower Extremity: Right Full Weight Bearing Left Lower Extremity: Left Full Weight Bearing Gait Training Does the Patient Walk?: Yes Distance: 275' Walk 10 feet (QC): 4 Walk 50 ft with 2 Turns(QC): 4 Walk 150 ft (QC): 4 Gait Assistive Device: FWW improved gait sequence and distance Exercises Supine Ex: Ankle pumps, Quad Set, Heel Slides, Straight leg raise Supine Reps: 15 (AAROM in recliner with LE's elevated) Seated Therapy Exercises: Ankle pumps, Long arc quads, Hip flexion Seated Reps: 15 (AAROM) Assessment Patient receiving Magnesium this p.m. Much improved mentation and physical ability this p.m. Physician notified. PT Access Control Specialist Goals Alf Goals PT Alf Goals Time Frame: May 19, 2019 Sit to Lying (QC): 4 (SBA) Lying-Sitting on Side/Bed(QC): 4 (SBA) Sit to Stand (QC): 4 (SBA) Roll Left to Right (QC): 6 Distance: 150' Walk 10 feet (QC): 4 (SBA) Walk 50ft with 2 Turns (QC): 4 (SBA) Walk 150 ft (QC): 4 (SBA) Gait Assistive Device: FWW 1 Step (curb) (QC): 3 (Jose) PT Plan Treatment/Plan Treatment Plan: Continue Plan of Care Treatment Plan: Bed Mobility, Concurrent Therapy, Education, Functional Activity Jaida, Functional Strength, Gait, Safety, Therapeutic Exercise, Transfers Frequency: 11 times per week Estimated Hrs Per Day: .25 hour per day Patient and/or Family Agrees t: Yes Time/GCodes Time In: 1247 Time Out: 1310 Total Billed Treatment Time: 23 Total Billed Treatment 1 visit EX 12 min FA 11 min JACK RYAN PT May 17, 2019 13:39 POS
--- NOTE | 2019-05-17 13:45 | NUR ---
provided prayer and Communion.
--- NOTE | 2019-05-17 14:14 | Occupational Ther Daily Note ---
OT Current Status-Daily Note Subjective Pt. reports that she has soreness in lower right back but does not report a pain level. Pt. has had pain meds. Mental Status/Objective Patient Orientation: Person, Place ADL-Treatment Therapy Code Descriptions/Definitions Functional [place] Measure: 0=Not Assessed/NA 4=Minimal Assistance 1=Total Assistance 5=Supervision or Setup 2=Maximal Assistance 6=Modified [place] 3=Moderate Assistance 7=Complete IndependenceSCALE: Activities may be completed with or without assistive devices. 7-Vpfqkfzugk-dcextqq completes the activity by him/herself with no assistance from a helper. 5-Set-up or Clean-up Assistance-helper sets up or cleans up; patient completes activity. [place] assists only prior to or following the activity. 4-Supervision or Touching Assistance-helper provides verbal cues and/or touching/steadying and/or contact guard assistance as patient completes activity. Assistance may be provided throughout the activity or intermittently. 3-Partial/Moderate Assistance-helper does LESS THAN HALF the effort. [place] lifts, holds or supports trunk or limbs, but provides less than half the effort. 2-Substantial/Maximal Assistance-helper does MORE THAN HALF the effort. [place] lifts or holds trunk or limbs and provides more than half the effort. 8-Ypyowxemv-cmahit does ALL the effort. Patient does none of the effort to complete the activity. Or, the assistance of 2 or more helpers is required for the patient to complete the activity. If activity was not attempted, code reason: 7-Patient Refused. 9-Not Applicable-not attempted and the patient did not perform the activity before the current illness, exacerbation or injury. 10-Not Attempted due to Environmental Limitations-(lack of equipment, weather restraints, etc.). 88-Not Attempted due to Medical Conditions or Safety Concerns. Eating (QC): 5 (Set up) Lower Body Dressing (QC): 3 Pt. seen for two sessions this date. At first session, pt. washing hands at sink with PT after toileting. OT took over at this point and pt. ambulated with CGA to chair. Pt's lunch arrived earlier and she was eager to eat. OT set tray in front of her and observed pt. set up her food. Pt. able to open dressing package and demonstrate ability to use fork to obtain food. Pt. is asked if she feels that she needs to use built up handles for utensils, (brought in last week), and pt. verbalizes that she does not. Pt. left to finish meal at this point. OT came back later in afternoon to assist pt. with dressing. Pt. declines UE clothing as she has telemetry and IV. Agrees to don underwear and pants. Pt. requires mod assist overall to thread over feet, and to don over hips in stance. Pt. is educated about AE to make dressing tasks easier. Pt. verbalizes understanding, and OT will bring in AE at next session. All needs met. Education OT Patient Education: Correct positioning, Modified ADL techniques, Progress toward Goal/Update tx plan, Purpose of tx/functional activities, Reviewed precautions, Rehab process, Transfer techniques Teaching Recipient: Patient, Family Teaching Methods: Demonstration, Discussion Response to Teaching: Verbalize Understanding, Return Demonstration OT Short Term Goals Short Term Goals Time Frame: May 19, 2019 Eating(FIM): 6 Grooming(FIM): 5 Bathing(FIM): 3 Upper Body Dressing(FIM): 4 Lower Body Dressing(FIM): 3 Toileting(FIM): 3 Transfers (B,C,W/C) (FIM): 4 Toilet/Commode Transfer(FIM): 4 Shower Transfer(FIM): 4 Additional Short Term Goals: 1-Demonstrate ADL Tasks, 2-Verbalize Understanding, 3-ImproveStrength/Jaida 1=Demonstrate adherence to instructed precautions during ADL tasks. 2=Patient will verbalize/demonstrate understanding of assistive devices/modifications for ADL. 3=Patient will improve strength/tolerance for activity to enable patient to perform ADL's. OT Half-Way Goals Market Risk Specialist Goals Time Frame: May 26, 2019 Eating (QC): 6 Oral Hygiene (QC): 5 Shower/Bathe Self (QC): 5 Upper Body Dressing (QC): 5 Lower Body Dressing (QC): 5 On/Off Footwear (QC): 5 Toileting Hygiene (QC): 5 Toilet/Commode Transfer (QC): 5 Additional Goals: 1-Demonstrate ADL Tasks, 2-Verbalize Understanding, 3- ImproveStrength/Jaida 1=Demonstrate adherence to instructed precautions during ADL tasks. 2=Patient will verbalize/demonstrate understanding of assistive devices/modifications for ADL. 3=Patient will improve strength/tolerance for activity to enable patient to perform ADL's. OT Education/Plan Problem List/Assessment Assessment: Decreased Activ Tolerance, Impaired I ADL's, Impaired Self-Care Skills Discharge Recommendations Plan/Recommendations: Continue POC Therapy Discharge Recommendati: Post Acute OT Equpiment Recommendations-D/C: Hip Kit Treatment Plan/Plan of Care Treatment,Training & Education: Yes Patient would benefit from OT for education, treatment and training to promote independence in ADL's, mobility, safety and/or upper extremity function for ADL's. Plan of Care: ADL Retraining, Functional Mobility, UE Funct Exercise/Act Treatment Duration: May 26, 2019 Frequency: 5 times per week Estimated Hrs Per Day: .5 hour per day Agreement: Yes Rehab Potential: Good Time/GCodes Start Time: 13:10 Stop Time: 14:05 Total Time Billed (hr/min): 23 Billed Treatment Time 3060-1853 1, ADL x 8minutes 9919-9391 1, ADL x 15minutes SHRUTI GARBER OT May 17, 2019 14:14 POS
--- NOTE | 2019-05-17 15:13 | Speech Therapy Daily Note ---
Speech Daily Progress Note Subjective Date Seen by Provider: May 17, 2019 Time Seen by Provider: 00:10 Patient resting in her chair. Patient's speech is noted to be clearer. Objective Patient completed answering general information questions at 80% with 15% cues. Assessment Assessment Current Status: Good Progress Treatment Plan Continue Plan of Care Speech Short Term Goals Short Term Goals Short Term Goals 1) Patient will demonstrate 90% or greater with confrontational naming of objects with 10% clinician cues. 2) Patient will display 90% or greater with simple, multi-step commands, independently. 3) Patient will improve intelligibility to 100% without cues/repetitions. Speech Wildlife Biostation Research Ecologist Goals Wildlife Biostation Research Ecologist Goals Patient will demonstrate improved expressive and receptive languag skills for increased function and accuracy of ADL's in the least restrictive environment. Speech-Plan Patient/Family Goals Patient/Family Goals: Patient plans on returning home with her upon hospital discharge. Treatment Plan Speech Therapy Treatment Plan: Continue Plan of Care Patient's word finding is coming back again after her decline the past few days. Treatment Duration: May 20, 2019 Frequency: 5 times per week Estimated Hrs Per Day: .25 hour per day Rehab Potential: Good Barriers to Learning: Patient has after affects from her recent Pt/Family Agrees to Plan: Yes Safety Risks/Education Teaching Recipient: Patient, Significant Other Teaching Methods: Demonstration Response to Teaching: Verbalize Understanding, Return Demonstration Education Topics Provided: Continued communication of her wants/needs. Time Speech Therapy Time In: 14:35 Speech Therapy Time Out: 14:45 Total Billed Time: 10 Billed Treatment Time 1, IALYN LINDERCHANEL ANDRADESEGUNDO CHOWDARY May 17, 2019 15:13 POS
--- NOTE | 2019-05-17 15:35 | Progress Note - Hospitalist ---
Subjective HPI/CC On Admission Date Seen by Provider: May 17, 2019 Time Seen by Provider: 09:40 altered mental status Subjective/Events-last exam She is awake and alert. She is speaking in full sentences and responding appropriately. Her only complaint is hip pain. Objective Exam Vital Signs Vital Signs Date Time Temp Pulse Resp B/P (MAP) Pulse Ox O2 Delivery O2 Flow Rate FiO2 05/17/19 14:10 37.6 68 95 21 05/17/19 09:00 Room Air 05/16/19 18:30 22 147/63 (91) Capillary Refill : Less Than 3 Seconds General Appearance: No Apparent Distress, Chronically ill, Obese Respiratory: Lungs Clear, Normal Breath Sounds, No Respiratory Distress Cardiovascular: Regular Rate, Rhythm, No Edema, No Murmur Gastrointestinal: Normal Bowel Sounds, Non Tender, Soft Extremity: Normal Inspection, Non Tender, No Pedal Edema Neurologic/Psychiatric: Alert, Normal Mood/Affect; No Disoriented Skin: Normal Color, Warm/Dry Results/Procedures Lab Laboratory Tests 05/17/19 06:20 Patient resulted labs reviewed. Assessment/Plan Assessment and Plan Assess & Plan/Chief Complaint Cryptogenic stroke -Continue PT/OT -Continue ASA/Lipitor Hypomagnesemia -Monitor and replace as needed Diagnosis/Problems Diagnosis/Problems (1) Cryptogenic stroke Status: Acute (2) Hypomagnesemia Status: Acute Clinical Quality Measures DVT/VTE Risk/Contraindication: Risk Factor Score Per Nursin CHOLO HUANG MD May 17, 2019 15:35 POS
[2019-05-17 18:28] VITALS: BP 142/68
[2019-05-17] MEDS: ENOXAPARIN 40 MG/0.4 ML (LOVENOX) SYR SC SCH (19:45)
[2019-05-17] MEDS: MELATONIN 3 MG TABLET PO SCH (21:42)
[2019-05-17] MEDS: risperiDONE 1 MG (RisperDAL) TAB PO SCH (21:42)
[2019-05-17] MEDS: TOLTERODINE LA 4 MG (DETROL) CAP PO SCH (21:42)
[2019-05-17] MEDS: GABAPENTIN 600 MG (NEURONTIN) TAB PO SCH (21:43)
[2019-05-18 06:32] VITALS: BP 131/75
[2019-05-18] MEDS: inSUlin ASPART (NovoLOG) 1 UNIT/0.01 ML (CHARGE PER UNIT) SC SCH ×7 (06:37→20:27)
[2019-05-18] MEDS: GABAPENTIN 300 MG (NEURONTIN) CAP PO SCH ×3 (06:42→17:40)
[2019-05-18] MEDS: LEVOTHYROXINE 75 MCG (LEVOTHROID) TABLET PO SCH (06:42)
[2019-05-18 08:00] VITALS: BP 139/82
[2019-05-18] MEDS: ASPIRIN E.C. 81 MG (ECOTRIN) TAB PO SCH (09:04)
[2019-05-18] MEDS: amLODIPine 10 MG (NORVASC) TAB PO SCH (09:04)
[2019-05-18] MEDS: DOCUSATE SODIUM 100 MG (COLACE) CAP PO SCH ×2 (09:05→21:15)
[2019-05-18] MEDS: FLUTICASONE NASAL SPRAY (FLONASE) 16 GM BTL NS SCH ×2 (09:05→21:16)
[2019-05-18] MEDS: PANTOPRAZOLE 40 MG (PROTONIX) TAB PO SCH (09:05)
[2019-05-18] MEDS: MENTHOL/ZINC OXIDE (CALMOSEPTINE) 113 GM TUBE TOP SCH ×2 (09:05→21:15)
--- NOTE | 2019-05-18 09:26 | Physical Therapy Daily Note ---
PT Daily Note-Current Subjective Patient is awake and alert with family. All agree to PT at this time. Patient reports that she is feeling better today but reports her pain is moving down her back. Pain Numeric Pain Scale: 8 Location: Right Location Body Site: Back (glute) Pain Description: Ache Mental Status Patient Orientation: Normal For Age Transfers SCALE: Activities may be completed with or without assistive devices. 7-Gxnrnatrgp-gxdehdg completes the activity by him/herself with no assistance from a helper. 5-Set-up or Clean-up Assistance-helper sets up or cleans up; patient completes activity. [place] assists only prior to or following the activity. 4-Supervision or Touching Assistance-helper provides verbal cues and/or touching/steadying and/or contact guard assistance as patient completes activity. Assistance may be provided throughout the activity or intermittently. 3-Partial/Moderate Assistance-helper does LESS THAN HALF the effort. [place] lifts, holds or supports trunk or limbs, but provides less than half the effort. 2-Substantial/Maximal Assistance-helper does MORE THAN HALF the effort. [place] lifts or holds trunk or limbs and provides more than half the effort. 7-Zsgtllqns-qzdhhl does ALL the effort. Patient does none of the effort to complete the activity. Or, the assistance of 2 or more helpers is required for the patient to complete the activity. If activity was not attempted, code reason: 7-Patient Refused. 9-Not Applicable-not attempted and the patient did not perform the activity before the current illness, exacerbation or injury. 10-Not Attempted due to Environmental Limitations-(lack of equipment, weather restraints, etc.). 88-Not Attempted due to Medical Conditions or Safety Concerns. Transfers (B, C, W/C): 4 Sit to Lying (QC): 4 Sit to Stand (QC): 5 Weight Bearing Right Lower Extremity: Right Full Weight Bearing Left Lower Extremity: Left Full Weight Bearing Gait Training Does the Patient Walk?: Yes Gait: 4 Distance: 125' Walk 10 feet (QC): 4 Walk 50 ft with 2 Turns(QC): 4 Gait Assistive Device: FWW Step through, toe out; reported she felt she was "going down" towards end of ambulation d/t fatigue and dizziness. After short break, felt fine again. Exercises Supine Ex: Heel Slides, Straight leg raise Supine Reps: 10 (AAROM) Seated Therapy Exercises: Ankle pumps, Long arc quads, Hip flexion, Hip abd/add Seated Reps: 15 Assessment Patient tolerated seated exercises well and demonstrated good understanding and strength to perform increase repetitions. During ambulation, patient had fatigue and dizziness towards end of walk that was relieved with a short standing break. Patient had difficultly transferring from sitting EOB to supine and required assistance with lifting LEs to bed and shifting upper body. Able to return to sitting EOB and transfer to chair independently. PT Group Home Goals Python Web Developer Goals PT Group Home Goals Time Frame: May 19, 2019 Sit to Lying (QC): 4 (SBA) Lying-Sitting on Side/Bed(QC): 4 (SBA) Sit to Stand (QC): 4 (SBA) Roll Left to Right (QC): 6 Distance: 150' Walk 10 feet (QC): 4 (SBA) Walk 50ft with 2 Turns (QC): 4 (SBA) Walk 150 ft (QC): 4 (SBA) Gait Assistive Device: FWW 1 Step (curb) (QC): 3 (Jose) PT Plan Treatment/Plan Treatment Plan: Continue Plan of Care Treatment Plan: Bed Mobility, Concurrent Therapy, Education, Functional Activity Jaida, Functional Strength, Gait, Safety, Therapeutic Exercise, Transfers Frequency: 11 times per week Estimated Hrs Per Day: .25 hour per day Patient and/or Family Agrees t: Yes Time/GCodes Time In: 852 Time Out: 916 Total Billed Treatment Time: 24 Total Billed Treatment 1 visit EX x10 FA x14 JACK RYAN PT May 18, 2019 09:26 POS
--- NOTE | 2019-05-18 10:17 | NUR ---
ORDERED CBC FOR AM LABS PER PROTOCOL - PT ON ENOXAPARIN
--- NOTE | 2019-05-18 11:15 | NUR ---
provided prayer and Communion.
--- NOTE | 2019-05-18 11:48 | Occupational Ther Daily Note ---
OT Current Status-Daily Note Subjective Pt alert, sitting in recliner. Pt finishing up with PT, GEORGE took over care from PT. Pt agrees to therapy. No c/o pain at this time. Mental Status/Objective Patient Orientation: Person, Place, Time, Situation Attachments: IV ADL-Treatment Pt declines shower, agrees to sponge bath. Pt ambulated with CGA to bathroom and sat at sink to complete sponge bath. Pt able to complete upper body bathing and donned/doffed hospital gown, verbal cues to thread arms. Pt declined to cleanse jean area/buttocks, stating that they were cleaned when she went to bathroom. Assist to bath lower legs/feet. Pt completed oral care sitting at sink, brushed hair but stated that this wore her out. Pt able to doff socks with dressing stick after education. Assist to set up socks on sock aide then verbal cues and 1 physical cue to don socks. Pt was educated on using product promoter retail pet for donning/doffing pants and long handle shoe horn to don shoes. After therapy, pt sitting in recliner with family presents. Call light/phone in reach, all needs met in room. Therapy Code Descriptions/Definitions Functional [place] Measure: 0=Not Assessed/NA 4=Minimal Assistance 1=Total Assistance 5=Supervision or Setup 2=Maximal Assistance 6=Modified [place] 3=Moderate Assistance 7=Complete IndependenceSCALE: Activities may be completed with or without assistive devices. 8-Jdpfvhlexh-tmxwcjw completes the activity by him/herself with no assistance from a helper. 5-Set-up or Clean-up Assistance-helper sets up or cleans up; patient completes activity. [place] assists only prior to or following the activity. 4-Supervision or Touching Assistance-helper provides verbal cues and/or touching/steadying and/or contact guard assistance as patient completes activity. Assistance may be provided throughout the activity or intermittently. 3-Partial/Moderate Assistance-helper does LESS THAN HALF the effort. [place] lifts, holds or supports trunk or limbs, but provides less than half the effort. 2-Substantial/Maximal Assistance-helper does MORE THAN HALF the effort. [place] lifts or holds trunk or limbs and provides more than half the effort. 1-Lyvzhpyba-kkkxyr does ALL the effort. Patient does none of the effort to complete the activity. Or, the assistance of 2 or more helpers is required for the patient to complete the activity. If activity was not attempted, code reason: 7-Patient Refused. 9-Not Applicable-not attempted and the patient did not perform the activity before the current illness, exacerbation or injury. 10-Not Attempted due to Environmental Limitations-(lack of equipment, weather restraints, etc.). 88-Not Attempted due to Medical Conditions or Safety Concerns. Oral Hygiene (QC): 6 Bathing Location: L Arm, R Arm, Chest, Abdomen Shower/Bathe Self (QC): 2 Education OT Patient Education: Modified ADL techniques, Use of adapted equipment Teaching Recipient: Patient, Family Teaching Methods: Demonstration, Discussion Response to Teaching: Verbalize Understanding, Return Demonstration, Reinforcement Needed OT Short Term Goals Short Term Goals Time Frame: May 19, 2019 Eating(FIM): 6 Grooming(FIM): 5 Bathing(FIM): 3 Upper Body Dressing(FIM): 4 Lower Body Dressing(FIM): 3 Toileting(FIM): 3 Transfers (B,C,W/C) (FIM): 4 Toilet/Commode Transfer(FIM): 4 Shower Transfer(FIM): 4 Additional Short Term Goals: 1-Demonstrate ADL Tasks, 2-Verbalize Understanding, 3-ImproveStrength/Jaida 1=Demonstrate adherence to instructed precautions during ADL tasks. 2=Patient will verbalize/demonstrate understanding of assistive de vices/modifications for ADL. 3=Patient will improve strength/tolerance for activity to enable patient to perform ADL's. OT Residential Goals Residential Goals Time Frame: May 26, 2019 Eating (QC): 6 Oral Hygiene (QC): 5 Shower/Bathe Self (QC): 5 Upper Body Dressing (QC): 5 Lower Body Dressing (QC): 5 On/Off Footwear (QC): 5 Toileting Hygiene (QC): 5 Toilet/Commode Transfer (QC): 5 Additional Goals: 1-Demonstrate ADL Tasks, 2-Verbalize Understanding, 3- ImproveStrength/Jaida 1=Demonstrate adherence to instructed precautions during ADL tasks. 2=Patient will verbalize/demonstrate understanding of assistive devices/modifications for ADL. 3=Patient will improve strength/tolerance for activity to enable patient to perform ADL's. OT Education/Plan Problem List/Assessment Assessment: Decreased Activ Tolerance, Decreased UE Strength, Impaired Coordination, Impaired Funct Balance, Impaired Self-Care Skills Discharge Recommendations Plan/Recommendations: Continue POC Treatment Plan/Plan of Care Patient would benefit from OT for education, treatment and training to promote independence in ADL's, mobility, safety and/or upper extremity function for ADL's. Plan of Care: ADL Retraining, Functional Mobility, UE Funct Exercise/Act Treatment Duration: May 26, 2019 Frequency: 5 times per week Estimated Hrs Per Day: .5 hour per day Agreement: Yes Rehab Potential: Good Time/GCodes Start Time: 09:16 Stop Time: 09:56 Total Time Billed (hr/min): 40 Billed Treatment Time 1 visit-ADL 3 (40 min) BALAJI GAMBOA May 18, 2019 11:48 POS
[2019-05-18 12:00] VITALS: BP 154/67
--- NOTE | 2019-05-18 12:33 | Speech Therapy Daily Note ---
Speech Daily Progress Note Subjective Date Seen by Provider: May 18, 2019 Time Seen by Provider: 00:15 Patient resting in her recliner following OT and PT. She was able to participate. Objective Patient's speech has returned fairly well. She is able to express wants/needs with 90%. Paraphasia has decreased. Assessment Assessment Current Status: Good Progress Treatment Plan Continue Plan of Care Speech Short Term Goals Short Term Goals Short Term Goals 1) Patient will demonstrate 90% or greater with confrontational naming of objects with 10% clinician cues. 2) Patient will display 90% or greater with simple, multi-step commands, independently. 3) Patient will improve intelligibility to 100% without cues/repetitions. Speech Usp Goals Usp Goals Patient will demonstrate improved expressive and receptive languag skills for increased function and accuracy of ADL's in the least restrictive environment. Speech-Plan Patient/Family Goals Patient/Family Goals: Family/patient plans on returning home upon hospital discharge. Treatment Plan Speech Therapy Treatment Plan: Continue Plan of Care Patient has made good progress. Treatment Duration: May 20, 2019 Frequency: 5 times per week Estimated Hrs Per Day: .25 hour per day Rehab Potential: Good Barriers to Learning: Patient continues to have after affects of recent CVA. Pt/Family Agrees to Plan: Yes Safety Risks/Education Teaching Recipient: Patient, Family Teaching Methods: Demonstration, Discussion Response to Teaching: Verbalize Understanding, Return Demonstration Education Topics Provided: Continued communication with family and caregivers. Time Speech Therapy Time In: 10:53 Speech Therapy Time Out: 11:08 Total Billed Time: 15 Billed Treatment Time [address]AIL[address] May 18, 2019 12:33 POS
--- NOTE | 2019-05-18 12:52 | NUR ---
CALLED DR BRASHER'S OFFICE PER HIS REQUEST TO NOTIFY HIS RN KATHY ABOUT THE LOOP MONITOR. WITH KATHY'S HELP THIS RN SET UP THE PEDIATRIC RADIOLOGIST/TRANSMITTER AND EDUCATED THE PATIENT AND HER FAMILY.
--- NOTE | 2019-05-18 14:21 | Physical Therapy Daily Note ---
PT Daily Note-Current Subjective Patient agrees to PT at this time. Patient does not remember having PT tx this morning. Reports she is feeling good and having less than pain than earlier today. Pain Numeric Pain Scale: 2 Location: Right Location Body Site: Back (glute) Pain Description: Ache Mental Status Patient Orientation: Normal For Age Transfers SCALE: Activities may be completed with or without assistive devices. 1-Perohjdgbh-ukpzsni completes the activity by him/herself with no assistance from a helper. 5-Set-up or Clean-up Assistance-helper sets up or cleans up; patient completes activity. [place] assists only prior to or following the activity. 4-Supervision or Touching Assistance-helper provides verbal cues and/or touching/steadying and/or contact guard assistance as patient completes activity. Assistance may be provided throughout the activity or intermittently. 3-Partial/Moderate Assistance-helper does LESS THAN HALF the effort. [place] lifts, holds or supports trunk or limbs, but provides less than half the effort. 2-Substantial/Maximal Assistance-helper does MORE THAN HALF the effort. [place] lifts or holds trunk or limbs and provides more than half the effort. 1-Rzwpvdfgp-pcjwys does ALL the effort. Patient does none of the effort to complete the activity. Or, the assistance of 2 or more helpers is required for the patient to complete the activity. If activity was not attempted, code reason: 7-Patient Refused. 9-Not Applicable-not attempted and the patient did not perform the activity before the current illness, exacerbation or injury. 10-Not Attempted due to Environmental Limitations-(lack of equipment, weather restraints, etc.). 88-Not Attempted due to Medical Conditions or Safety Concerns. Sit to Stand (QC): 5 Weight Bearing Right Lower Extremity: Right Full Weight Bearing Left Lower Extremity: Left Full Weight Bearing Gait Training Does the Patient Walk?: Yes Gait: 5 Distance: 125' Walk 10 feet (QC): 5 Walk 50 ft with 2 Turns(QC): 5 Gait Assistive Device: FWW Step through pattern, toe out/pronation, improved gait speed. Exercises Seated Therapy Exercises: Ankle pumps, Sit to stand, Long arc quads, Hip flexion, Hip abd/add Seated Reps: 10 (2 sets) Standing: Hamstring curls, Heel/toe raises, Marching Standing Reps: 10 (2 sets) Assessment Patient performed increased repetitions of seated and standing exercises with less fatigue than previously shown. Patient was able to ambulate with improved speed and did not require a rest break during ambulation or demonstrate fatigue at conclusion of walk. PT [employer] Goals [employer] Goals PT [facility] Goals Time Frame: May 19, 2019 Sit to Lying (QC): 4 (SBA) Lying-Sitting on Side/Bed(QC): 4 (SBA) Sit to Stand (QC): 4 (SBA) Roll Left to Right (QC): 6 Distance: 150' Walk 10 feet (QC): 4 (SBA) Walk 50ft with 2 Turns (QC): 4 (SBA) Walk 150 ft (QC): 4 (SBA) Gait Assistive Device: FWW 1 Step (curb) (QC): 3 (Jose) PT Plan Treatment/Plan Treatment Plan: Continue Plan of Care Treatment Plan: Bed Mobility, Concurrent Therapy, Education, Functional A ctivity Jaida, Functional Strength, Gait, Safety, Therapeutic Exercise, Transfers Frequency: 11 times per week Estimated Hrs Per Day: .25 hour per day Patient and/or Family Agrees t: Yes Time/GCodes Time In: 1324 Time Out: 1341 Total Billed Treatment Time: 17 Total Billed Treatment 1 visit EX 17min JACK RYAN PT May 18, 2019 14:21 POS
--- NOTE | 2019-05-18 15:23 | Cardiology Progress Note ---
Cardiology SOAP Progress Note Subjective: No cardiac complaints. Objective: I&O/Vital Signs 05/18/19 05/18/19 05/18/19 05/18/19 06:32 07:00 08:00 09:00 Temp 36.9 37.0 Pulse 84 60 70 Resp 19 18 B/P (MAP) 131/75 (93) 139/82 (101) Pulse Ox 96 96 96 O2 Delivery Room Air Room Air Room Air 05/18/19 05/18/19 12:00 12:20 Temp 36.8 Pulse 64 68 Resp 20 B/P (MAP) 154/67 (96) Pulse Ox 97 O2 Delivery Room Air 05/18/19 00:00 Intake Total 1040 ml Balance 1040 ml Weight (Pounds): 224 Weight (Ounces): 0.9 Weight (Calculated Kilograms): [id number] Constitutional: appears stated age; No apparent distress; well-developed, well- nourished Respiratory: chest is bilaterally symmetric, lungs clear to auscultation Cardiovascular: regular rate-rhythm, S1 and S2 Gastrointestional: soft, audible bowel sounds; No spleenomegaly Extremities: normal range of motion, non-tender, normal inspection; No clubbing, No cyanosis; no lower extremity edema bilateral; No significant edema Neurologic/Psychiatric: alert, normal mood/affect, disoriented x 3 Skin: normal color, warm/dry; No rash, No ulcerations Results/Procedures: Labs Laboratory Tests 05/17/19 15:46: Glucometer 349H 05/17/19 20:41: Glucometer 282H 05/18/19 06:25: Glucometer 120H 05/18/19 11:28: Glucometer 134H A/P: Assessment/Dx: Cryptogenic stroke, Hypertension, Diabetes, Paroxysmal atrial fibrillation Plan: Patient presented with acute encephalopathy and the working diagnosis from the primary team is acute ischemic stroke. Carotids are negative. Telemetry over 48 hours is negative for atrial fibrillation. Echocardiogram showed normal LV size and function. Limited echocardiogram with bubble study was negative for intracardiac shunting. This fulfills a diagnosis of cryptogenic stroke. Implantable loop recorder done 05/13/2019. Device interrogation today shows brief episodes of paroxysmal atrial fibrillation for total of 8 minutes. The patient denies any symptoms. It is likely that paroxysmal atrial fibrillation could be the reason for the cryptogenic stroke. I will discuss with the patient and family about oral anticoagulation. Thank you for your consultation. Please call me if you have any questions. Waqas Zepeda MD, FACP, FACC, FSCAI, FHRS, CCDS Interventional Cardiology Cardiac Electrophysiology Vascular Medicine and Endovascular Interventions Alyce ZEPEDA MD May 18, 2019 15:23 POS
[2019-05-18 16:12] VITALS: BP 141/63
[2019-05-18 20:00] VITALS: BP 137/61
[2019-05-18] MEDS: ENOXAPARIN 40 MG/0.4 ML (LOVENOX) SYR SC SCH (21:14)
[2019-05-18] MEDS: risperiDONE 1 MG (RisperDAL) TAB PO SCH (21:15)
[2019-05-18] MEDS: GABAPENTIN 600 MG (NEURONTIN) TAB PO SCH (21:15)
[2019-05-18] MEDS: TOLTERODINE LA 4 MG (DETROL) CAP PO SCH (21:15)
[2019-05-18] MEDS: MELATONIN 3 MG TABLET PO SCH (21:15)
[2019-05-19] VITALS: BP 137/61
[2019-05-19 04:00] VITALS: BP 142/71
[2019-05-19 06:37] LABS: HEMOGLOBIN 11.3 G/DL (11.5-16.0); RED CELL DISTRIBUTION WIDTH 14.9 % (10.0-14.5); WHITE BLOOD COUNT 5.5 10^3/uL (4.3-11.0)
[2019-05-19 06:55] LABS: BUN/CREATININE RATIO 14; CALCIUM 8.4 MG/DL (8.5-10.1); CARBON DIOXIDE 27 MMOL/L (21-32); CHLORIDE 104 MMOL/L (98-107); CREATININE SERUM 0.77 MG/DL (0.60-1.30); GFR ESTIMATED > 60; GLUCOSE 126 MG/DL (70-105); MAGNESIUM 1.8 MG/DL (1.6-2.4); POTASSIUM 4.1 MMOL/L (3.6-5.0); SODIUM 139 MMOL/L (135-145)
[2019-05-19] MEDS: GABAPENTIN 300 MG (NEURONTIN) CAP PO SCH ×3 (07:06→17:38)
[2019-05-19] MEDS: LEVOTHYROXINE 75 MCG (LEVOTHROID) TABLET PO SCH (07:06)
[2019-05-19] MEDS: inSUlin ASPART (NovoLOG) 1 UNIT/0.01 ML (CHARGE PER UNIT) SC SCH ×7 (07:09→21:32)
[2019-05-19 08:00] VITALS: BP 149/76
[2019-05-19] MEDS: PANTOPRAZOLE 40 MG (PROTONIX) TAB PO SCH (08:14)
[2019-05-19] MEDS: DOCUSATE SODIUM 100 MG (COLACE) CAP PO SCH ×3 (08:14→20:13)
[2019-05-19] MEDS: ASPIRIN E.C. 81 MG (ECOTRIN) TAB PO SCH (08:15)
[2019-05-19] MEDS: amLODIPine 10 MG (NORVASC) TAB PO SCH (08:15)
[2019-05-19] MEDS: MENTHOL/ZINC OXIDE (CALMOSEPTINE) 113 GM TUBE TOP SCH ×2 (08:15→20:12)
--- NOTE | 2019-05-19 08:41 | NUR ---
IRF Evaluation Order received to evaluate patient for the ARU. Chart review complete and findings discussed with Dr. Stephens - patient denied. This denial is due to patient's inability to tolerate intensive therapies, at this time. Thank you for this referral.
[2019-05-19] MEDS: FLUTICASONE NASAL SPRAY (FLONASE) 16 GM BTL NS SCH ×2 (09:39→20:08)
--- NOTE | 2019-05-19 10:42 | Occupational Ther Daily Note ---
OT Current Status-Daily Note Subjective No pain reported. Appearance Pt. is up in chair. Agrees to sponge bathe, but declines showering. States that she does not like showering at home either, and prefers to sponge bathe. Mental Status/Objective Patient Orientation: Person, Place ADL-Treatment Therapy Code Descriptions/Definitions Functional [place] Measure: 0=Not Assessed/NA 4=Minimal Assistance 1=Total Assistance 5=Supervision or Setup 2=Maximal Assistance 6=Modified [place] 3=Moderate Assistance 7=Complete IndependenceSCALE: Activities may be completed with or without assistive devices. 7-Mczghhwbba-niikqdv completes the activity by him/herself with no assistance from a helper. 5-Set-up or Clean-up Assistance-helper sets up or cleans up; patient completes activity. [place] assists only prior to or following the activity. 4-Supervision or Touching Assistance-helper provides verbal cues and/or touching/steadying and/or contact guard assistance as patient completes activity. Assistance may be provided throughout the activity or intermittently. 3-Partial/Moderate Assistance-helper does LESS THAN HALF the effort. [place] lifts, holds or supports trunk or limbs, but provides less than half the effort. 2-Substantial/Maximal Assistance-helper does MORE THAN HALF the effort. [place] lifts or holds trunk or limbs and provides more than half the effort. 0-Qjahgeake-azbnkb does ALL the effort. Patient does none of the effort to complete the activity. Or, the assistance of 2 or more helpers is required for the patient to complete the activity. If activity was not attempted, code reason: 7-Patient Refused. 9-Not Applicable-not attempted and the patient did not perform the activity before the current illness, exacerbation or injury. 10-Not Attempted due to Environmental Limitations-(lack of equipment, weather restraints, etc.). 88-Not Attempted due to Medical Conditions or Safety Concerns. Shower/Bathe Self (QC): 4 (CGA in stance to wash jean area. Pt. declines washing feet, or having OT wash feet. States, "they were done real well yesterday and I don't bathe everyday.") Upper Body Dressing (QC): 4 (SBA due to telemetry.) Lower Body Dressing (QC): 3 (Mod assist overall to don brief over hips and to don over feet with equipment, over hips in stance.) Other Treatment Pt. agrees to complete ADLs in bathroom. Ambulated into bathroom with CGA and walker. Pt. sat at sink and declined showering. Pt. is able to sponge bathe, and uses dressing stick to don pants over feet. Pt. brushed hair but declined brushing teeth at this time. Declines practicing socks, and requests to ambulate back to chair. Requires CGA to ambulate to chair in room. All needs met back in chair, with alarm and call light in place. Spouse in room with pt. Education OT Patient Education: Correct positioning, Modified ADL techniques, Progress toward Goal/Update tx plan, Purpose of tx/functional activities, Reviewed precautions, Rehab process, Transfer techniques, Use of adapted equipment Teaching Recipient: Patient Teaching Methods: Demonstration, Discussion Response to Teaching: Verbalize Understanding, Return Demonstration OT Short Term Goals Short Term Goals Time Frame: May 19, 2019 Eating(FIM): 6 Grooming(FIM): 5 Bathing(FIM): 3 Upper Body Dressing(FIM): 4 Lower Body Dressing(FIM): 3 Toileting(FIM): 3 Transfers (B,C,W/C) (FIM): 4 Toilet/Commode Transfer(FIM): 4 Shower Transfer(FIM): 4 Additional Short Term Goals: 1-Demonstrate ADL Tasks, 2-Verbalize Understanding, 3-ImproveStrength/Jaida 1=Demonstrate adherence to instructed precautions during ADL tasks. 2=Patient will verbalize/demonstrate understanding of assistive devices/modifications for ADL. 3=Patient will improve strength/tolerance for activity to enable patient to perform ADL's. OT Metallographic Technician Goals Detention Goals Time Frame: May 26, 2019 Eating (QC): 6 Oral Hygiene (QC): 5 Shower/Bathe Self (QC): 5 Upper Body Dressing (QC): 5 Lower Body Dressing (QC): 5 On/Off Footwear (QC): 5 Toileting Hygiene (QC): 5 Toilet/Commode Transfer (QC): 5 Additional Goals: 1-Demonstrate ADL Tasks, 2-Verbalize Understanding, 3- ImproveStrength/Jaida 1=Demonstrate adherence to instructed precautions during ADL tasks. 2=Patient will verbalize/demonstrate understanding of assistive devices/modifications for ADL. 3=Patient will improve strength/tolerance for activity to enable patient to perform ADL's. OT Education/Plan Problem List/Assessment Assessment: Decreased Activ Tolerance, Dependent Transfers, Impaired I ADL's, Impaired Self-Care Skills Discharge Recommendations Plan/Recommendations: Continue POC Therapy Discharge Recommendati: Post Acute OT Equpiment Recommendations-D/C: Hip Kit Treatment Plan/Plan of Care Treatment,Training & Education: Yes Patient would benefit from OT for education, treatment and training to promote independence in ADL's, mobility, safety and/or upper extremity function for ADL's. Plan of Care: ADL Retraining, Functional Mobility, UE Funct Exercise/Act Treatment Duration: May 26, 2019 Frequency: 5 times per week Estimated Hrs Per Day: .5 hour per day Agreement: Yes Rehab Potential: Good Time/GCodes Start Time: 09:30 Stop Time: 10:00 Total Time Billed (hr/min): 30 Billed Treatment Time 1, ADL x 2 SHRUTI GARBER OT May 19, 2019 10:42 POS
--- NOTE | 2019-05-19 11:38 | Physical Therapy Daily Note ---
PT Daily Note-Current Subjective pt in chair pre-tx with in room. pt agrees to PT this morning. Pt denies pain at this time. Appearance Pt in chair post-tx with and daughter in room with chair alarm set. pt with call light, room phone, tray table in reach and all needs met at this time. Mental Status Patient Orientation: Person, Place, Time, Situation Transfers SCALE: Activities may be completed with or without assistive devices. 3-Hgpeqdttad-vsntpid completes the activity by him/herself with no assistance from a helper. 5-Set-up or Clean-up Assistance-helper sets up or cleans up; patient completes activity. [place] assists only prior to or following the activity. 4-Supervision or Touching Assistance-helper provides verbal cues and/or touchin g/steadying and/or contact guard assistance as patient completes activity. Assistance may be provided throughout the activity or intermittently. 3-Partial/Moderate Assistance-helper does LESS THAN HALF the effort. [place] lifts, holds or supports trunk or limbs, but provides less than half the effort. 2-Substantial/Maximal Assistance-helper does MORE THAN HALF the effort. [place] lifts or holds trunk or limbs and provides more than half the effort. 3-Vhmgezqxs-ippjmk does ALL the effort. Patient does none of the effort to complete the activity. Or, the assistance of 2 or more helpers is required for the patient to complete the activity. If activity was not attempted, code reason: 7-Patient Refused. 9-Not Applicable-not attempted and the patient did not perform the activity before the current illness, exacerbation or injury. 10-Not Attempted due to Environmental Limitations-(lack of equipment, weather restraints, etc.). 88-Not Attempted due to Medical Conditions or Safety Concerns. Sit to Stand (QC): 4 (SBA) Weight Bearing Right Lower Extremity: Right Full Weight Bearing Left Lower Extremity: Left Full Weight Bearing Gait Training Distance: 500' Walk 10 feet (QC): 6 Walk 50 ft with 2 Turns(QC): 4 (SBA for turns. Pt gets FWW too far ahead of herself.) Walk 150 ft (QC): 4 (SBA) Gait Assistive Device: FWW Verbal cues to stay inside walker and not let the walker get too far ahead of her. Pt corrected once and needed another cue for next turn. Exercises Seated Therapy Exercises: Long arc quads, Hip flexion Seated Reps: 15 Standing: Hip Abduction, Heel/toe raises Standing Reps: 15 Treatments Pt performed functional LE strengthening, and skilled ambulation training, transfer training. Assessment Current Status: Good Progress Pt turns require CGA as pt lets walker get too far ahead of her and can cause a risk of falling. Pt harlan increased ambulation distance without any SOB. Pt required no standing rest breaks and reports subjectively feeling better with ambulation today than yesterday. Pt required no sit break after ambulation to complete standing exercises. PT Snf Goals Frame Nailer Goals PT Frame Nailer Goals Time Frame: May 19, 2019 Sit to Lying (QC): 4 (SBA) Lying-Sitting on Side/Bed(QC): 4 (SBA) Sit to Stand (QC): 4 (SBA) Roll Left to Right (QC): 6 Distance: 150' Walk 10 feet (QC): 4 (SBA) Walk 50ft with 2 Turns (QC): 4 (SBA) Walk 150 ft (QC): 4 (SBA) Gait Assistive Device: FWW 1 Step (curb) (QC): 3 (Jose) PT Plan Problem List Problem List: Activity Tolerance, Functional Strength, Safety, Balance, Gait, Transfer, Bed Mobility, ROM Treatment/Plan Treatment Plan: Continue Plan of Care Treatment Plan: Bed Mobility, Education, Functional Activity Jaida, Functional Strength, Gait, Safety, Therapeutic Exercise, Transfers Frequency: 11 times per week Estimated Hrs Per Day: .25 hour per day Patient and/or Family Agrees t: Yes Safety Risks/Education Patient Education: Gait Training, Transfer Techniques, Correct Positioning, Safety Issues Teaching Recipient: Patient, Family Teaching Methods: Demonstration, Discussion Response to Teaching: Return Demonstration, Reinforcement Needed Time/GCodes Time In: 1117 Time Out: 1130 Total Billed Treatment Time: 13 Total Billed Treatment 1 visit FA HAROON CASAS PT May 19, 2019 11:38 POS
--- NOTE | 2019-05-19 11:46 | Speech Therapy Daily Note ---
Speech Daily Progress Note Subjective Date Seen by Provider: May 19, 2019 Time Seen by Provider: 00:30 Patient was sitting up in her recliner, alert and oriented. Objective Patient completed a series of speech tasks with 90% given 10% cues/repetitions. Assessment Assessment Current Status: Good Progress Treatment Plan Continue Plan of Care Speech Short Term Goals Short Term Goals Short Term Goals 1) Patient will demonstrate 90% or greater with confrontational naming of objects with 10% clinician cues. 2) Patient will display 90% or greater with simple, multi-step commands, independently. 3) Patient will improve intelligibility to 100% without cues/repetitions. Speech Correction Goals Correction Goals Patient will demonstrate improved expressive and receptive languag skills for increased function and accuracy of ADL's in the least restrictive environment. Speech-Plan Patient/Family Goals Patient/Family Goals: Patient's plans are to return home upon hospital discharge. Treatment Plan Speech Therapy Treatment Plan: Continue Plan of Care Patient is making good progress toward meeting ST goals. Treatment Duration: May 24, 2019 Frequency: 5 times per week Estimated Hrs Per Day: .25 hour per day Rehab Potential: Good Barriers to Learning: Patient has some mild side affects from her recent CVA. Pt/Family Agrees to Plan: Yes Safety Risks/Education Teaching Recipient: Patient, Significant Other Teaching Methods: Demonstration, Discussion Response to Teaching: Verbalize Understanding, Return Demonstration Education Topics Provided: Safety within her room, communication of wants/needs. Time Speech Therapy Time In: 11:00 Speech Therapy Time Out: 11:15 Total Billed Time: 15 Billed Treatment Time 1, JALEN Stubbs May 19, 2019 11:46 POS
[2019-05-19 12:23] VITALS: BP 172/72
--- NOTE | 2019-05-19 13:24 | Physical Therapy Daily Note ---
PT Daily Note-Current Subjective Patient in recliner pre tx, agrees to PT only with encouragement. Patient states she has some minor low back pain. Appearance Patient in toilet post tx, instructed to use nurse call when done, nurse notified that patient is on toilet, she is at the desk right beside her room. Mental Status Patient Orientation: Person Transfers SCALE: Activities may be completed with or without assistive devices. 8-Wgdistzjel-rkdtnrx completes the activity by him/herself with no assistance from a helper. 5-Set-up or Clean-up Assistance-helper sets up or cleans up; patient completes activity. [place] assists only prior to or following the activity. 4-Supervision or Touching Assistance-helper provides verbal cues and/or touching/steadying and/or contact guard assistance as patient completes activity. Assistance may be provided throughout the activity or intermittently. 3-Partial/Moderate Assistance-helper does LESS THAN HALF the effort. [place] lifts, holds or supports trunk or limbs, but provides less than half the effort. 2-Substantial/Maximal Assistance-helper does MORE THAN HALF the effort. [place] lifts or holds trunk or limbs and provides more than half the effort. 3-Kwomvoual-ngdvpy does ALL the effort. Patient does none of the effort to complete the activity. Or, the assistance of 2 or more helpers is required for the patient to complete the activity. If activity was not attempted, code reason: 7-Patient Refused. 9-Not Applicable-not attempted and the patient did not perform the activity before the current illness, exacerbation or injury. 10-Not Attempted due to Environmental Limitations-(lack of equipment, weather restraints, etc.). 88-Not Attempted due to Medical Conditions or Safety Concerns. Sit to Stand (QC): 4 Chair/Tbl-xn-Ufxqb Xfer(QC): 4 SBA Weight Bearing Right Lower Extremity: Right Full Weight Bearing Left Lower Extremity: Left Full Weight Bearing Gait Training Distance: 400' Walk 10 feet (QC): 4 Walk 50 ft with 2 Turns(QC): 4 Walk 150 ft (QC): 4 Gait Persons Needed: 1 Gait Assistive Device: FWW SBA, no LOB or unsteadiness, slow ambulation, needed one standing rest break, patient fatigued after ambulation Treatments transfers and ambulation Assessment Current Status: Fair Progress improving endurance PT Human Development Professor Goals Fpc Goals PT Fpc Goals Time Frame: May 19, 2019 Sit to Lying (QC): 4 (SBA) Lying-Sitting on Side/Bed(QC): 4 (SBA) Sit to Stand (QC): 4 (SBA) Roll Left to Right (QC): 6 Distance: 150' Walk 10 feet (QC): 4 (SBA) Walk 50ft with 2 Turns (QC): 4 (SBA) Walk 150 ft (QC): 4 (SBA) Gait Assistive Device: FWW 1 Step (curb) (QC): 3 (Jose) PT Plan Problem List Problem List: Activity Tolerance, Functional Strength, Safety, Balance, Gait, Transfer, Bed Mobility, ROM Treatment/Plan Treatment Plan: Continue Plan of Care Treatment Plan: Bed Mobility, Education, Functional Activity Jaida, Functional Strength, Gait, Safety, Therapeutic Exercise, Transfers Frequency: 11 times per week Estimated Hrs Per Day: .25 hour per day Patient and/or Family Agrees t: Yes Safety Risks/Education Patient Education: Gait Training, Transfer Techniques, Correct Positioning, Safety Issues Teaching Recipient: Patient Teaching Methods: Demonstration, Discussion Response to Teaching: Reinforcement Needed Time/GCodes Time In: 1112 Time Out: 1122 Total Billed Treatment Time: 10 Total Billed Treatment 1 visit GT Jose Manuel' HAROON INIGUEZ PT May 19, 2019 13:24 POS
--- NOTE | 2019-05-19 14:09 | NUR ---
Swing Bed Note: Interdisciplinary swing bed team meeting held on this date. Patient's family member, daughter Pauly, participated in team meeting. We discussed Yanique's progress with therapy et ultimate goal is to return home at her prior independent level of function. Yanique is making progress with therapy et is increasing her tolerance each day as well. Daughter reports that she has grab bars in her bathroom with a tub transfer bench in her shower, family has talked about need for lift reclining chairs but at this time Yanique is able to stand from a low sitting chair, they have removed all of the lose rugs from inside the house as well. She already has a walker et a cane et there is no further equipment identified at this time. The discharge date was set by Dr. Dimas for 05/24 with home health care to follow for Physical Therapy, Occupational Therapy, et Nursing for medication set up. They have selected [facility] as their Home Health Care provider. Daughter Pauly et patient have both verbalized POC back to this nurse et are in agreement for this plan. I have notified [facility] (Erika) of tentative discharge date.
--- NOTE | 2019-05-19 14:33 | Cardiology Progress Note ---
Cardiology SOAP Progress Note Subjective: No cardiac complaints. Objective: I&O/Vital Signs 05/19/19 05/19/19 05/19/19 05/19/19 09:00 12:23 13:00 15:53 Temp 36.6 36.6 Pulse 74 80 84 Resp 16 20 B/P (MAP) 172/72 (105) 161/74 (103) Pulse Ox 96 96 96 O2 Delivery Room Air Room Air Room Air 05/19/19 05/19/19 18:19 18:40 Temp 36.6 Pulse 84 Resp 20 B/P (MAP) 161/74 (103) Pulse Ox 96 O2 Delivery Room Air Room Air 05/19/19 00:00 Intake Total 1270 ml Balance 1270 ml Weight (Pounds): 224 Weight (Ounces): 0.9 Weight (Calculated Kilograms): 101.628532 Constitutional: appears stated age; No apparent distress; well-developed, well- nourished Respiratory: chest is bilaterally symmetric, lungs clear to auscultation Cardiovascular: regular rate-rhythm, S1 and S2 Gastrointestional: soft, audible bowel sounds; No spleenomegaly Extremities: normal range of motion, non-tender, normal inspection; No clubbing, No cyanosis; no lower extremity edema bilateral; No significant edema Neurologic/Psychiatric: alert, normal mood/affect, disoriented x 3 Skin: normal color, warm/dry; No rash, No ulcerations Results/Procedures: Labs Laboratory Tests 05/18/19 20:25: Glucometer 174H 05/19/19 06:20: White Blood Count 5.5, Red Blood Count 3.92L, Hemoglobin 11.3L, Hematocrit 37, Mean Corpuscular Volume 93, Mean Corpuscular Hemoglobin 29, Mean Corpuscular Hemoglobin Concent 31L, Red Cell Distribution Width 14.9H, Platelet Count 218, Mean Platelet Volume 11.0H, Sodium Level 139, Potassium Level 4.1, Chloride Level 104, Carbon Dioxide Level 27, Anion Gap 8, Blood Urea Nitrogen 11, Creatinine 0.77, Estimat Glomerular Filtration Rate > 60, BUN/Creatinine Ratio 14, Glucose Level 126H, Calcium Level 8.4L, Magnesium Level 1.8 05/19/19 12:09: Glucometer 129H 05/19/19 15:31: Glucometer 160H A/P: Assessment/Dx: Cryptogenic stroke, Hypertension, Diabetes, Paroxysmal atrial fibrillation Plan: Patient presented with acute encephalopathy and the working diagnosis from the primary team is acute ischemic stroke. Carotids are negative. Telemetry over 48 hours is negative for atrial fibrillation. Echocardiogram showed normal LV size and function. Limited echocardiogram with bubble study was negative for intracardiac shunting. This fulfills a diagnosis of cryptogenic stroke. Implantable loop recorder done 05/13/2019. Device interrogation today shows brief episodes of paroxysmal atrial fibrillation for total of 8 minutes. The patient denies any symptoms. It is likely that paroxysmal atrial fibrillation could be the reason for the cryptogenic stroke. I discussed at length with the patient, and daughter about risk of stroke. CHADSVASC score 6 (age over 75, Female gender, HTN, Stroke); OAC is superior to Aspirin for stroke prevention. Patient has three falls in the last one year. I discussed at length about risk of bleeding. The patient and family will discuss and provide a decision till tomorrow. Thank you for your consultation. Please call me if you have any questions. Waqas Zepeda MD, FACP, FACC, FSCAI, FHRS, CCDS Interventional Cardiology Cardiac Electrophysiology Vascular Medicine and Endovascular Interventions Alyce ZEPEDA MD May 19, 2019 14:33 POS
--- NOTE | 2019-05-19 14:45 | NUR ---
DR BRASHER ON THE FLOOR. CALLED CAROL, THE PATIENT'S DAUGHTER PER HIS REQUEST. HE WANTED TO TALK TO HER AND HER PARENTS ABOUT THE LOOP RECORDER RESULTS
--- NOTE | 2019-05-19 15:23 | NUR ---
RD ASSESSMENT PMHx: HTN; DM PT INTERACTION: Pt was awake and pleasant during nutrition assessment for length of stay. Pt states current appetite is good. Note pt is eating well, per chart review. Pt states following a regular diet at home and having no current issues with n/v/c/d at this time. Pt states no recent wt changes. Note unable to determine recent wt hx, per chart review. ABNORMAL NUTRITION-RELATED LAB VALUES: glu 126 (H); Ca 8.4 (L) Est. kcal needs: 1473-7454 kcal (15-20 kcal/kg) Est. Pro needs: 90-108 g Pro (1.0-1.2 g Pro/kg) PES STATEMENT: Given pt's PO intake, no nutrition diagnosis at this time (NO-1.1) INTERVENTION: Continue with current diet order of CHO 60g/m 0snack diet. MONITOR/EVALUATE: PO Intake; Plan of Care; Hydration Status; Weight Status; Lab Values Kendrick Banegas, MS, RD, LD Ext. 133
[2019-05-19 15:53] VITALS: BP 161/74
--- NOTE | 2019-05-19 16:40 | NUR ---
ICU DOWEL POINTER CALLED. THEY ARE NEEDING THE TELEMETRY FOR A DIFFERENT PATIENT. DR HUANG IS OKAY WITH DISCONTINUING THE TELEMETRY. SHE WILL COME DOWN TO GET IT.
[2019-05-19 18:19] VITALS: BP 161/74
[2019-05-19] MEDS: TOLTERODINE LA 4 MG (DETROL) CAP PO SCH (20:05)
[2019-05-19] MEDS: GABAPENTIN 600 MG (NEURONTIN) TAB PO SCH (20:05)
[2019-05-19] MEDS: risperiDONE 1 MG (RisperDAL) TAB PO SCH (20:05)
[2019-05-19] MEDS: MELATONIN 3 MG TABLET PO SCH (20:05)
[2019-05-19] MEDS: ENOXAPARIN 40 MG/0.4 ML (LOVENOX) SYR SC SCH (20:05)
[2019-05-20 05:59] VITALS: BP 173/81
[2019-05-20] MEDS: inSUlin ASPART (NovoLOG) 1 UNIT/0.01 ML (CHARGE PER UNIT) SC SCH ×7 (06:35→21:02)
[2019-05-20] MEDS: GABAPENTIN 300 MG (NEURONTIN) CAP PO SCH ×3 (06:47→17:28)
[2019-05-20] MEDS: LEVOTHYROXINE 75 MCG (LEVOTHROID) TABLET PO SCH (06:47)
[2019-05-20 08:43] VITALS: BP 173/81
[2019-05-20] MEDS: MENTHOL/ZINC OXIDE (CALMOSEPTINE) 113 GM TUBE TOP SCH ×2 (09:00→20:17)
--- NOTE | 2019-05-20 09:37 | Physical Therapy Daily Note ---
PT Daily Note-Current Subjective Patient is awake reclining in chair and agrees to PT. Patient states she is hoping to go home on Friday. Patient reports that she is sore from the hips down. Pain Numeric Pain Scale: 7 Location: Right Location Body Site: Back (glute) Pain Description: Ache Mental Status Patient Orientation: Normal For Age Transfers SCALE: Activities may be completed with or without assistive devices. 7-Huidhndhfz-zyjpvcz completes the activity by him/herself with no assistance from a helper. 5-Set-up or Clean-up Assistance-helper sets up or cleans up; patient completes activity. [place] assists only prior to or following the activity. 4-Supervision or Touching Assistance-helper provides verbal cues and/or touching/steadying and/or contact guard assistance as patient completes activity. Assistance may be provided throughout the activity or intermittently. 3-Partial/Moderate Assistance-helper does LESS THAN HALF the effort. [place] lifts, holds or supports trunk or limbs, but provides less than half the effort. 2-Substantial/Maximal Assistance-helper does MORE THAN HALF the effort. [place] lifts or holds trunk or limbs and provides more than half the effort. 6-Cxerqbfez-tzraej does ALL the effort. Patient does none of the effort to complete the activity. Or, the assistance of 2 or more helpers is required for the patient to complete the activity. If activity was not attempted, code reason: 7-Patient Refused. 9-Not Applicable-not attempted and the patient did not perform the activity before the current illness, exacerbation or injury. 10-Not Attempted due to Environmental Limitations-(lack of equipment, weather restraints, etc.). 88-Not Attempted due to Medical Conditions or Safety Concerns. Sit to Stand (QC): 5 Weight Bearing Right Lower Extremity: Right Full Weight Bearing Left Lower Extremity: Left Full Weight Bearing Gait Training Does the Patient Walk?: Yes Gait: 4 Distance: 300' Walk 10 feet (QC): 4 Walk 50 ft with 2 Turns(QC): 4 Walk 150 ft (QC): 4 Gait Assistive Device: FWW Patient ambulates with normal, step through pattern, toe out/pronation; Patient reported dizziness and LE weakness during walk but recovered with short break. Exercises Seated Therapy Exercises: Ankle pumps, Sit to stand, Long arc quads, Hip flexion, Hip abd/add, Glut set Seated Reps: 10 (2 sets) Standing: Hamstring curls, Heel/toe raises, Marching Standing Reps: 10 Assessment Patient tolerated seated exercises before ambulation. Patient ambulated with FWW but felt dizziness and weakness during ambulation. Patient performed toileting independently. After ambulation, patient was able to perform standing exercises and another set of seated exercises, noting muscle fatigue. Patient returned to chair at conclusion of treatment with feet elevated. PT Military Communications Specialist Goals Military Communications Specialist Goals PT Military Communications Specialist Goals Time Frame: May 19, 2019 Sit to Lying (QC): 4 (SBA) Lying-Sitting on Side/Bed(QC): 4 (SBA) Sit to Stand (QC): 4 (SBA) Roll Left to Right (QC): 6 Distance: 150' Walk 10 feet (QC): 4 (SBA) Walk 50ft with 2 Turns (QC): 4 (SBA) Walk 150 ft (QC): 4 (SBA) Gait Assistive Device: FWW 1 Step (curb) (QC): 3 (Jose) PT Plan Treatment/Plan Treatment Plan: Continue Plan of Care Treatment Plan: Bed Mobility, Education, Functional Activity Jaida, Functional Strength, Gait, Safety, Therapeutic Exercise, Transfers Frequency: 11 times per week Estimated Hrs Per Day: .25 hour per day Patient and/or Family Agrees t: Yes Time/GCodes Time In: 820 Time Out: 843 Total Billed Treatment Time: 23 Total Billed Treatment 1 visit EX 10min FA 13min JACK RYAN PT May 20, 2019 09:37 POS
[2019-05-20] MEDS: ASPIRIN E.C. 81 MG (ECOTRIN) TAB PO SCH (09:48)
--- NOTE | 2019-05-20 09:48 | NUR ---
Received order for pharmacy to dose Eliquis ro Dr Zepeda. Dosed eliquis 5mg po bid. based on age over 80 years old, normal scr and weight greater than 60 (per manufacture recommendations).
[2019-05-20] MEDS: amLODIPine 10 MG (NORVASC) TAB PO SCH (09:49)
[2019-05-20] MEDS: PANTOPRAZOLE 40 MG (PROTONIX) TAB PO SCH (09:49)
[2019-05-20] MEDS: DOCUSATE SODIUM 100 MG (COLACE) CAP PO SCH ×2 (09:51→20:17)
[2019-05-20] MEDS: FLUTICASONE NASAL SPRAY (FLONASE) 16 GM BTL NS SCH ×2 (09:52→20:17)
[2019-05-20] MEDS: APIXABAN 5 MG (ELIQUIS) TABLET PO SCH ×2 (09:58→20:16)
--- NOTE | 2019-05-20 11:25 | NUR ---
Visit and communion provided by Repairer Veneer Sheet.
--- NOTE | 2019-05-20 12:36 | Occupational Ther Daily Note ---
OT Current Status-Daily Note Subjective Pt. reports that she is "sore" all over. States that she didn't sleep well last night, but is doing better now. Appearance Pt. in chair asleep when OT comes into room. Agrees to work with OT. Mental Status/Objective Patient Orientation: Person, Place ADL-Treatment Therapy Code Descriptions/Definitions Functional [place] Measure: 0=Not Assessed/NA 4=Minimal Assistance 1=Total Assistance 5=Supervision or Setup 2=Maximal Assistance 6=Modified [place] 3=Moderate Assistance 7=Complete IndependenceSCALE: Activities may be completed with or without assistive devices. 1-Dmnndtmduh-ntricwn completes the activity by him/herself with no assistance from a helper. 5-Set-up or Clean-up Assistance-helper sets up or cleans up; patient completes activity. [place] assists only prior to or following the activity. 4-Supervision or Touching Assistance-helper provides verbal cues and/or touching/steadying and/or contact guard assistance as patient completes activity. Assistance may be provided throughout the activity or intermittently. 3-Partial/Moderate Assistance-helper does LESS THAN HALF the effort. [place] lifts, holds or supports trunk or limbs, but provides less than half the effort. 2-Substantial/Maximal Assistance-helper does MORE THAN HALF the effort. [place] lifts or holds trunk or limbs and provides more than half the effort. 0-Hguzhzlfx-xgqqxj does ALL the effort. Patient does none of the effort to complete the activity. Or, the assistance of 2 or more helpers is required for the patient to complete the activity. If activity was not attempted, code reason: 7-Patient Refused. 9-Not Applicable-not attempted and the patient did not perform the activity before the current illness, exacerbation or injury. 10-Not Attempted due to Environmental Limitations-(lack of equipment, weather restraints, etc.). 88-Not Attempted due to Medical Conditions or Safety Concerns. Lower Body Dressing (QC): 3 (With cues and min assist to doff/don slipper socks using AE.) Toileting Hygiene (QC): 4 (CGA in stance.) Toilet Transfer (QC): 4 (SBA) Other Treatment Pt. is dressed and declines bathing. States that she is "set for the day." Does ask what the adaptive equipment is in her room. Pt. has used this before but does not remember. Pt. educated on AE and practiced using sock aide, dressing stick, and software applications architect. Pt. is able to doff socks with SBA and don them with min assist and cues. Pt. practices this again, and is able to bring feet up to her and don them with SBA. Pt. agrees to ambulate with OT. Uses walker and requires SBA to ambulate approximately 250 feet. Once pt.is back in her room, she transfers to toilet with SBA, and toilets with CGA in stance to don pants over hips. Pt. ambulates to sink to wash her hands, and then to chair in room. All needs met. Education OT Patient Education: Correct positioning, Exercise program, Modified ADL techniques, Progress toward Goal/Update tx plan, Purpose of tx/functional activities, Reviewed precautions, Rehab process, Transfer techniques, Use of adapted equipment Teaching Recipient: Patient Teaching Methods: Demonstration, Discussion Response to Teaching: Verbalize Understanding, Return Demonstration OT Short Term Goals Short Term Goals Time Frame: May 19, 2019 Eating(FIM): 6 Grooming(FIM): 5 Bathing(FIM): 3 Upper Body Dressing(FIM): 4 Lower Body Dressing(FIM): 3 Toileting(FIM): 3 Transfers (B,C,W/C) (FIM): 4 Toilet/Commode Transfer(FIM): 4 Shower Transfer(FIM): 4 Additional Short Term Goals: 1-Demonstrate ADL Tasks, 2-Verbalize Understanding, 3-ImproveStrength/Jaida 1=Demonstrate adherence to instructed precautions during ADL tasks. 2=Patient will verbalize/demonstrate understanding of assistive devices/modifications for ADL. 3=Patient will improve strength/tolerance for activity to enable patient to perform ADL's. OT Fruit Or Nut Farmworker Goals Fruit Or Nut Farmworker Goals Time Frame: May 26, 2019 Eating (QC): 6 Oral Hygiene (QC): 5 Shower/Bathe Self (QC): 5 Upper Body Dressing (QC): 5 Lower Body Dressing (QC): 5 On/Off Footwear (QC): 5 Toileting Hygiene (QC): 5 Toilet/Commode Transfer (QC): 5 Additional Goals: 1-Demonstrate ADL Tasks, 2-Verbalize Understanding, 3-ImproveStrength/Jaida 1=Demonstrate adherence to instructed precautions during ADL tasks. 2=Patient will verbalize/demonstrate understanding of assistive devices/modifications for ADL. 3=Patient will improve strength/tolerance for activity to enable patient to perform ADL's. OT Education/Plan Problem List/Assessment Assessment: Decreased Activ Tolerance, Impaired I ADL's, Impaired Self-Care Skills Discharge Recommendations Plan/Recommendations: Continue POC Therapy Discharge Recommendati: Post Acute OT Equpiment Recommendations-D/C: Hip Kit Treatment Plan/Plan of Care Treatment,Training & Education: Yes Patient would benefit from OT for education, treatment and training to promote independence in ADL's, mobility, safety and/or upper extremity function for ADL's. Plan of Care: ADL Retraining, Functional Mobility, UE Funct Exercise/Act Treatment Duration: May 26, 2019 Frequency: 5 times per week Estimated Hrs Per Day: .5 hour per day Agreement: Yes Rehab Potential: Good Time/GCodes Start Time: 10:35 Stop Time: 11:05 Total Time Billed (hr/min): 30 Billed Treatment Time 1, ADL x 15minutes, FA x 15minutes SHRUTI GARBER OT May 20, 2019 12:36 POS
--- NOTE | 2019-05-20 14:05 | Speech Therapy Daily Note ---
Speech Daily Progress Note Subjective Date Seen by Provider: May 20, 2019 Time Seen by Provider: 00:15 Patient was sitting up in her chair. She states she's having pain and didn't sleep well last night. Objective Patient completed speech activities with 90% given 5% repetitions or verbal cuing. Assessment Assessment Current Status: Good Progress Treatment Plan Continue Plan of Care Speech Short Term Goals Short Term Goals Short Term Goals 1) Patient will demonstrate 90% or greater with confrontational naming of objects with 10% clinician cues. 2) Patient will display 90% or greater with simple, multi-step commands, independently. 3) Patient will improve intelligibility to 100% without cues/repetitions. Speech Moveman Goals Moveman Goals Patient will demonstrate improved expressive and receptive languag skills for increased function and accuracy of ADL's in the least restrictive environment. Speech-Plan Patient/Family Goals Patient/Family Goals: Patient is hoping to be able to return home on Friday. Treatment Plan Speech Therapy Treatment Plan: Continue Plan of Care Patient has made good progress. Treatment Duration: May 24, 2019 Frequency: 5 times per week Estimated Hrs Per Day: .25 hour per day Rehab Potential: Good Barriers to Learning: Patient has had after affects from her recent CVA. Pt/Family Agrees to Plan: Yes Safety Risks/Education Teaching Recipient: Patient, Significant Other Teaching Methods: Demonstration, Discussion Response to Teaching: Verbalize Understanding, Return Demonstration Education Topics Provided: Continued safety within her room. Time Speech Therapy Time In: 11:10 Speech Therapy Time Out: 11:25 Total Billed Time: 15 Billed Treatment Time 1, JALEN Stubbs May 20, 2019 14:05 POS
--- NOTE | 2019-05-20 15:18 | Physical Therapy Daily Note ---
PT Daily Note-Current Subjective Patient agrees to PT at this time. Patient would like to walk instead of perform exercises in chair. Pain Numeric Pain Scale: 0-No Pain Location: No Pain Reported Mental Status Patient Orientation: Normal For Age Transfers SCALE: Activities may be completed with or without assistive devices. 2-Isyywpxpkr-qkgmcfz completes the activity by him/herself with no assistance from a helper. 5-Set-up or Clean-up Assistance-helper sets up or cleans up; patient completes activity. [place] assists only prior to or following the activity. 4-Supervision or Touching Assistance-helper provides verbal cues and/or touching/steadying and/or contact guard assistance as patient completes activity . Assistance may be provided throughout the activity or intermittently. 3-Partial/Moderate Assistance-helper does LESS THAN HALF the effort. [place] lifts, holds or supports trunk or limbs, but provides less than half the effort. 2-Substantial/Maximal Assistance-helper does MORE THAN HALF the effort. [place] lifts or holds trunk or limbs and provides more than half the effort. 3-Naxuwwnca-czlbtm does ALL the effort. Patient does none of the effort to complete the activity. Or, the assistance of 2 or more helpers is required for the patient to complete the activity. If activity was not attempted, code reason: 7-Patient Refused. 9-Not Applicable-not attempted and the patient did not perform the activity before the current illness, exacerbation or injury. 10-Not Attempted due to Environmental Limitations-(lack of equipment, weather restraints, etc.). 88-Not Attempted due to Medical Conditions or Safety Concerns. Sit to Stand (QC): 5 Weight Bearing Right Lower Extremity: Right Full Weight Bearing Left Lower Extremity: Left Full Weight Bearing Gait Training Does the Patient Walk?: Yes Gait: 5 Distance: 400' Walk 10 feet (QC): 5 Walk 50 ft with 2 Turns(QC): 5 Walk 150 ft (QC): 5 Gait Assistive Device: FWW Patient able to ambulate further than during previous tx. Patient reports no dizziness/SOB during ambulation and did not require a rest break. Assessment Patient able to stand from chair and ambulate with minimal assistance. Patient was able to ambulate further than during morning treatment and without needing to stop. Patient did not have any SOB or fatigue during or after ambulation. PT Central Supply Aide Goals Central Supply Aide Goals PT Custodial Goals Time Frame: May 19, 2019 Sit to Lying (QC): 4 (SBA) Lying-Sitting on Side/Bed(QC): 4 (SBA) Sit to Stand (QC): 4 (SBA) Roll Left to Right (QC): 6 Distance: 150' Walk 10 feet (QC): 4 (SBA) Walk 50ft with 2 Turns (QC): 4 (SBA) Walk 150 ft (QC): 4 (SBA) Gait Assistive Device: FWW 1 Step (curb) (QC): 3 (Jose) PT Plan Treatment/Plan Treatment Plan: Continue Plan of Care Treatment Plan: Bed Mobility, Education, Functional Activity Jaida, Functional Strength, Gait, Safety, Therapeutic Exercise, Transfers Frequency: 11 times per week Estimated Hrs Per Day: .25 hour per day Patient and/or Family Agrees t: Yes Time/GCodes Time In: 1433 Time Out: 1443 Total Billed Treatment Time: 10 Total Billed Treatment 1 visit FA 10min JACK RYAN PT May 20, 2019 15:18 POS
[2019-05-20 18:03] VITALS: BP 185/77
[2019-05-20] MEDS: MELATONIN 3 MG TABLET PO SCH (20:16)
[2019-05-20] MEDS: GABAPENTIN 600 MG (NEURONTIN) TAB PO SCH (20:16)
[2019-05-20] MEDS: TOLTERODINE LA 4 MG (DETROL) CAP PO SCH (20:16)
[2019-05-20] MEDS: risperiDONE 1 MG (RisperDAL) TAB PO SCH (20:16)
[2019-05-21] MEDS: LEVOTHYROXINE 75 MCG (LEVOTHROID) TABLET PO SCH (05:46)
[2019-05-21] MEDS: inSUlin ASPART (NovoLOG) 1 UNIT/0.01 ML (CHARGE PER UNIT) SC SCH ×7 (05:46→21:29)
[2019-05-21] MEDS: GABAPENTIN 300 MG (NEURONTIN) CAP PO SCH ×3 (05:46→17:23)
[2019-05-21 06:01] VITALS: BP 167/72
--- NOTE | 2019-05-21 08:49 | Cardiology Progress Note ---
Cardiology SOAP Progress Note Subjective: No cardiac complaints. Objective: I&O/Vital Signs 05/21/19 06:01 Temp 36.5 Pulse 80 Resp 18 B/P (MAP) 167/72 (103) Pulse Ox 93 O2 Delivery Room Air 05/20/19 23:59 Intake Total 2080 ml Output Total 2800 ml Balance -720 ml Weight (Pounds): 224 Weight (Ounces): 0.9 Weight (Calculated Kilograms): 101.802142 Constitutional: appears stated age; No apparent distress; well-developed, well- nourished Respiratory: chest is bilaterally symmetric, lungs clear to auscultation Cardiovascular: regular rate-rhythm, S1 and S2 Gastrointestional: soft, audible bowel sounds; No spleenomegaly Extremities: normal range of motion, non-tender, normal inspection; No clubbing, No cyanosis; no lower extremity edema bilateral; No significant edema Neurologic/Psychiatric: alert, normal mood/affect, disoriented x 3 Skin: normal color, warm/dry; No rash, No ulcerations Results/Procedures: Labs Laboratory Tests 05/20/19 11:10: Glucometer 204H 05/20/19 17:00: Glucometer 217H 05/20/19 20:28: Glucometer 159H 05/21/19 05:39: Glucometer 262H A/P: Assessment/Dx: Cryptogenic stroke, Hypertension, Diabetes, Paroxysmal atrial fibrillation Plan: Patient presented with acute encephalopathy and the working diagnosis from the primary team is acute ischemic stroke. Carotids are negative. Telemetry over 48 hours is negative for atrial fibrillation. Echocardiogram showed normal LV size and function. Limited echocardiogram with bubble study was negative for intracardiac shunting. This fulfills a diagnosis of cryptogenic stroke. Implantable loop recorder done 05/13/2019. Device interrogation today shows brief episodes of paroxysmal atrial fibrillation for total of 8 minutes. The patient denies any symptoms. There is a possibility that paroxysmal atrial fibrillation could be the reason for the cryptogenic stroke. I discussed at length with the patient, and daughter about risk of stroke. CHADSVASC score 6 (age over 75, Female gender, HTN, Stroke); OAC is superior to Aspirin for stroke prevention. Patient has three falls in the last one year. I discussed at length about risk of bleeding. The patient and family discussed and decided to start oral anticoagulation. We will start Eliquis twice a day. Dr. Faith to cover cardiology services over the weekend. Thank you for your consultation. Please call me if you have any questions. Waqas Zepeda MD, FACP, FACC, FSCAI, FHRS, CCDS Interventional Cardiology Cardiac Electrophysiology Vascular Medicine and Endovascular Interventions Alyce ZEPEDA MD May 21, 2019 08:49 POS
[2019-05-21] MEDS: ASPIRIN E.C. 81 MG (ECOTRIN) TAB PO SCH (09:28)
[2019-05-21] MEDS: PANTOPRAZOLE 40 MG (PROTONIX) TAB PO SCH (09:29)
[2019-05-21] MEDS: amLODIPine 10 MG (NORVASC) TAB PO SCH (09:29)
[2019-05-21] MEDS: APIXABAN 5 MG (ELIQUIS) TABLET PO SCH ×2 (09:29→21:08)
[2019-05-21] MEDS: FLUTICASONE NASAL SPRAY (FLONASE) 16 GM BTL NS SCH ×2 (09:30→21:08)
[2019-05-21] MEDS: DOCUSATE SODIUM 100 MG (COLACE) CAP PO SCH ×2 (09:30→21:08)
--- NOTE | 2019-05-21 09:49 | Physical Therapy Daily Note ---
PT Daily Note-Current Subjective Patient agrees to PT at this time. Patient reports she had significant pain in low back and legs during the night that prevented her from sleeping. Pain Numeric Pain Scale: 5-Moderate Pain Location: Lower Location Body Site: Back (and glutes) Pain Description: Ache Mental Status Patient Orientation: Normal For Age Transfers SCALE: Activities may be completed with or without assistive devices. 5-Ouqxvaajlo-sltmsmh completes the activity by him/herself with no assistance from a helper. 5-Set-up or Clean-up Assistance-helper sets up or cleans up; patient completes activity. [place] assists only prior to or following the activity. 4-Supervision or Touching Assistance-helper provides verbal cues and/or touching/steadying and/or contact guard assistance as patient completes activity. Assistance may be provided throughout the activity or intermittently. 3-Partial/Moderate Assistance-helper does LESS THAN HALF the effort. [place] lifts, holds or supports trunk or limbs, but provides less than half the effort. 2-Substantial/Maximal Assistance-helper does MORE THAN HALF the effort. [place] lifts or holds trunk or limbs and provides more than half the effort. 3-Fdkwrzuee-hamuwv does ALL the effort. Patient does none of the effort to complete the activity. Or, the assistance of 2 or more helpers is required for the patient to complete the activity. If activity was not attempted, code reason: 7-Patient Refused. 9-Not Applicable-not attempted and the patient did not perform the activity before the current illness, exacerbation or injury. 10-Not Attempted due to Environmental Limitations-(lack of equipment, weather restraints, etc.). 88-Not Attempted due to Medical Conditions or Safety Concerns. Sit to Stand (QC): 5 Weight Bearing Right Lower Extremity: Right Full Weight Bearing Left Lower Extremity: Left Full Weight Bearing Gait Training Does the Patient Walk?: Yes Gait: 5 Distance: 300' Walk 10 feet (QC): 5 Walk 50 ft with 2 Turns(QC): 5 Walk 150 ft (QC): 5 Gait Assistive Device: FWW Ambulated at a slower pace than usual, reported dizziness during ambulation but did not want to rest. Exercises Seated Therapy Exercises: Ankle pumps, Long arc quads, Hip flexion, Hip abd/add Seated Reps: 10 Assessment Patient performed all seated exercises well and demonstrates improved strength and endurance when performing exercises. Patient ambulated 200' at a slower pace, reporting dizziness during turn. Patient attributed slow pace and decreased distance to lack of sleep and pain. PT Breaker Mechanic Goals Senior Living Goals PT Breaker Mechanic Goals Time Frame: May 19, 2019 Sit to Lying (QC): 4 (SBA) Lying-Sitting on Side/Bed(QC): 4 (SBA) Sit to Stand (QC): 4 (SBA) Roll Left to Right (QC): 6 Distance: 150' Walk 10 feet (QC): 4 (SBA) Walk 50ft with 2 Turns (QC): 4 (SBA) Walk 150 ft (QC): 4 (SBA) Gait Assistive Device: FWW 1 Step (curb) (QC): 3 (Jose) PT Plan Treatment/Plan Treatment Plan: Continue Plan of Care Treatment Plan: Bed Mobility, Education, Functional Activity Jaida, Functional Strength, Gait, Safety, Therapeutic Exercise, Transfers Frequency: 11 times per week Estimated Hrs Per Day: .25 hour per day Patient and/or Family Agrees t: Yes Time/GCodes Time In: 833 Time Out: 848 Total Billed Treatment Time: 15 Total Billed Treatment 1 visit FA 15min JACK RYAN PT May 21, 2019 09:49 POS
[2019-05-21 12:00] VITALS: BP 144/81
--- NOTE | 2019-05-21 12:16 | Occupational Ther Daily Note ---
OT Current Status-Daily Note Subjective Pt did not complain of pain. Appearance Pt up in recliner. Pt agrees to therapy treatment. Mental Status/Objective Patient Orientation: Person, Place, Time, Situation ADL-Treatment Therapy Code Descriptions/Definitions Functional [place] Measure: 0=Not Assessed/NA 4=Minimal Assistance 1=Total Assistance 5=Supervision or Setup 2=Maximal Assistance 6=Modified [place] 3=Moderate Assistance 7=Complete IndependenceSCALE: Activities may be completed with or without assistive devices. 8-Mlonqvgxkh-zuroisj completes the activity by him/herself with no assistance from a helper. 5-Set-up or Clean-up Assistance-helper sets up or cleans up; patient completes activity. [place] assists only prior to or following the activity. 4-Supervision or Touching Assistance-helper provides verbal cues and/or touching/steadying and/or contact guard assistance as patient completes activity. Assistance may be provided throughout the activity or intermittently. 3-Partial/Moderate Assistance-helper does LESS THAN HALF the effort. [place] lifts, holds or supports trunk or limbs, but provides less than half the effort. 2-Substantial/Maximal Assistance-helper does MORE THAN HALF the effort. [place] lifts or holds trunk or limbs and provides more than half the effort. 3-Ffchzpvnv-wjlafr does ALL the effort. Patient does none of the effort to complete the activity. Or, the assistance of 2 or more helpers is required for the patient to complete the activity. If activity was not attempted, code reason: 7-Patient Refused. 9-Not Applicable-not attempted and the patient did not perform the activity before the current illness, exacerbation or injury. 10-Not Attempted due to Environmental Limitations-(lack of equipment, weather restraints, etc.). 88-Not Attempted due to Medical Conditions or Safety Concerns. Other Treatment Pt dressed for the day. Pt practiced use of AE. Pt participated in donning sock while seated. Pt required verbal cues to complete donning socks, supervision needed for consistency. Pt demonstrated ability to understand task. Pt then stated "I don't like it" when asked if its easier to use. Pt then participated in 3 UE exercises in all planes 2 sets, 10 reps to improve upper body strength for functional task of ADLs. Pt seated in recliner, phone, call light in reach. All needs met. Education OT Patient Education: Exercise program, Home exercise program, Instructions to caregiver, Modified ADL techniques, Progress toward Goal/Update tx plan, Purpose of tx/functional activities, Reviewed precautions, Rehab process, Safety issues, Use of adapted equipment Teaching Recipient: Patient Teaching Methods: Demonstration, Discussion Response to Teaching: Verbalize Understanding, Return Demonstration OT Short Term Goals Short Term Goals Time Frame: May 19, 2019 Eating(FIM): 6 Grooming(FIM): 5 Bathing(FIM): 3 Upper Body Dressing(FIM): 4 Lower Body Dressing(FIM): 3 Toileting(FIM): 3 Transfers (B,C,W/C) (FIM): 4 Toilet/Commode Transfer(FIM): 4 Shower Transfer(FIM): 4 Additional Short Term Goals: 1-Demonstrate ADL Tasks, 2-Verbalize Understanding, 3-ImproveStrength/Jaida 1=Demonstrate adherence to instructed precautions during ADL tasks. 2=Patient will verbalize/demonstrate understanding of assistive devices/modifications for ADL. 3=Patient will improve strength/tolerance for activity to enable patient to perform ADL's. OT Mathematics Academic Chair Goals [facility] Goals Time Frame: May 26, 2019 Eating (QC): 6 Oral Hygiene (QC): 5 Shower/Bathe Self (QC): 5 Upper Body Dressing (QC): 5 Lower Body Dressing (QC): 5 On/Off Footwear (QC): 5 Toileting Hygiene (QC): 5 Toilet/Commode Transfer (QC): 5 Additional Goals: 1-Demonstrate ADL Tasks, 2-Verbalize Understanding, 3- ImproveStrength/Jaida 1=Demonstrate adherence to instructed precautions during ADL tasks. 2=Patient will verbalize/demonstrate understanding of assistive devices/modifications for ADL. 3=Patient will improve strength/tolerance for activity to enable patient to perform ADL's. OT Education/Plan Problem List/Assessment Assessment: Decreased Activ Tolerance, Decreased UE Strength, Dependent Transfers, Impaired Funct Balance, Impaired I ADL's, Impaired Self-Care Skills Discharge Recommendations Plan/Recommendations: Continue POC Therapy Discharge Recommendati: Post Acute OT Equpiment Recommendations-D/C: Sock Aide Treatment Plan/Plan of Care Treatment,Training & Education: Yes Patient would benefit from OT for education, treatment and training to promote independence in ADL's, mobility, safety and/or upper extremity function for ADL's. Plan of Care: ADL Retraining, Functional Mobility, UE Funct Exercise/Act Treatment Duration: May 26, 2019 Frequency: 5 times per week Estimated Hrs Per Day: .5 hour per day Agreement: Yes Rehab Potential: Good Time/GCodes Start Time: 11:42 Stop Time: 12:00 Total Time Billed (hr/min): 18 Billed Treatment Time 1, FA, 18 Minutes BALAJI GAMBOA May 21, 2019 12:16 POS
--- NOTE | 2019-05-21 12:33 | Progress Note - Hospitalist ---
Subjective HPI/CC On Admission Date Seen by Provider: May 21, 2019 Time Seen by Provider: 09:15 altered mental status Subjective/Events-last exam She reports not sleeping well. She has been working with PT. She ate a cookie last night and her blood sugar went up a bit. She denies any fevers, chills, chest pain, dyspnea, abdominal pain, nausea, vomiting, or diarrhea. Objective Exam Vital Signs Vital Signs Date Time Temp Pulse Resp B/P (MAP) Pulse Ox O2 Delivery O2 Flow Rate FiO2 05/21/19 06:01 36.5 80 18 167/72 (103) 93 Room Air 05/17/19 14:10 21 Capillary Refill : Less Than 3 Seconds General Appearance: No Apparent Distress, WD/WN, Obese, Other (sitting in bedside chair) Respiratory: Lungs Clear, Normal Breath Sounds, No Respiratory Distress Cardiovascular: Regular Rate, Rhythm, No Edema, No Murmur Gastrointestinal: Normal Bowel Sounds, Non Tender, Soft Extremity: Normal Inspection, Non Tender Neurologic/Psychiatric: Alert, Oriented x3, No Motor/Sensory Deficits, Normal Mood/Affect Skin: Normal Color, Warm/Dry Lymphatic: No Adenopathy Results/Procedures Lab Patient resulted labs reviewed. Assessment/Plan Assessment and Plan Assess & Plan/Chief Complaint Cryptogenic stroke -Continue PT/OT -Continue ASA/Lipitor Paroxysmal atrial fibrillation -Continue Eliquis Diagnosis/Problems Diagnosis/Problems (1) Cryptogenic stroke Status: Acute (2) Paroxysmal atrial fibrillation Status: Chronic Clinical Quality Measures DVT/VTE Risk/Contraindication: Risk Factor Score Per Nursin CHOLO HUANG MD May 21, 2019 12:33 POS
--- NOTE | 2019-05-21 12:51 | Speech Therapy Daily Note ---
Speech Daily Progress Note Subjective Date Seen by Provider: May 21, 2019 Time Seen by Provider: 00:15 Patient finishing up her breakfast when I entered her room. Objective Patient completed a series of safety awareness cards with unsafe scenarios she may encounter when he returns home at 90% with 5% verbal cues. Assessment Assessment Current Status: Good Progress Treatment Plan Continue Plan of Care Speech Short Term Goals Short Term Goals Short Term Goals 1) Patient will demonstrate 90% or greater with confrontational naming of objects with 10% clinician cues. 2) Patient will display 90% or greater with simple, multi-step commands, independently. 3) Patient will improve intelligibility to 100% without cues/repetitions. Speech Researcher Goals Researcher Goals Patient will demonstrate improved expressive and receptive languag skills for increased function and accuracy of ADL's in the least restrictive environment. Speech-Plan Patient/Family Goals Patient/Family Goals: Patient is planning on returning home where she lives with her . Treatment Plan Speech Therapy Treatment Plan: Continue Plan of Care Patient's speech production has improved without difficulty expressing needs/wants. Treatment Duration: May 24, 2019 Frequency: 5 times per week Estimated Hrs Per Day: .25 hour per day Rehab Potential: Good Barriers to Learning: Patient has had mild after affects from her recent CVA. Pt/Family Agrees to Plan: Yes Safety Risks/Education Teaching Recipient: Patient, Significant Other Teaching Methods: Demonstration, Discussion Response to Teaching: Verbalize Understanding, Return Demonstration Education Topics Provided: Continued safety within her room and upon her return home. Time Speech Therapy Time In: 08:05 Speech Therapy Time Out: 08:20 Total Billed Time: 15 Billed Treatment Time 1, JALEN Stubbs May 21, 2019 12:51 POS
--- NOTE | 2019-05-21 14:11 | Physical Therapy Daily Note ---
PT Daily Note-Current Subjective Patient agrees to PT at this time. Reports she is tired and would like to take a nap after treatment. Pain Numeric Pain Scale: 4 Location: Lower Location Body Site: Back Pain Description: Ache Mental Status Patient Orientation: Normal For Age Transfers SCALE: Activities may be completed with or without assistive devices. 2-Infsaicggd-qzdhmon completes the activity by him/herself with no assistance from a helper. 5-Set-up or Clean-up Assistance-helper sets up or cleans up; patient completes activity. [place] assists only prior to or following the activity. 4-Supervision or Touching Assistance-helper provides verbal cues and/or touching/steadying and/or contact guard assistance as patient completes activity. Assistance may be provided throughout the activity or intermittently. 3-Partial/Moderate Assistance-helper does LESS THAN HALF the effort. [place] lifts, holds or supports trunk or limbs, but provides less than half the effort. 2-Substantial/Maximal Assistance-helper does MORE THAN HALF the effort. [place] lifts or holds trunk or limbs and provides more than half the effort. 1-Drsggnpbg-ceqhxh does ALL the effort. Patient does none of the effort to complete the activity. Or, the assistance of 2 or more helpers is required for the patient to complete the activity. If activity was not attempted, code reason: 7-Patient Refused. 9-Not Applicable-not attempted and the patient did not perform the activity before the current illness, exacerbation or injury. 10-Not Attempted due to Environmental Limitations-(lack of equipment, weather restraints, etc.). 88-Not Attempted due to Medical Conditions or Safety Concerns. Sit to Stand (QC): 5 Weight Bearing Right Lower Extremity: Right Full Weight Bearing Left Lower Extremity: Left Full Weight Bearing Gait Training Does the Patient Walk?: Yes Gait: 5 Distance: 400' Walk 10 feet (QC): 5 Walk 50 ft with 2 Turns(QC): 5 Walk 150 ft (QC): 5 Gait Assistive Device: FWW Normal pace, step through pattern, toe out/pronation, able to ambulate further with no report of dizziness/pain Exercises Seated Therapy Exercises: Ankle pumps, Long arc quads, Hip flexion, Hip abd/add Seated Reps: 10 Standing: Heel/toe raises, Marching, Weight shifts Standing Reps: 10 Assessment Patient able to ambulate 400' with FWW with CGA with no report of pain or dizziness. Patient performed standing and seated exercises after ambulating, reporting fatigue at conclusion of treatment. Patient had increase of LBP with sitting after exercises that subsided some with rest. Patient seated in chair to rest at conclusion of treatment. PT Shelter Goals Accounting Machine Servicer Goals PT Accounting Machine Servicer Goals Time Frame: May 19, 2019 Sit to Lying (QC): 4 (SBA) Lying-Sitting on Side/Bed(QC): 4 (SBA) Sit to Stand (QC): 4 (SBA) Roll Left to Right (QC): 6 Distance: 150' Walk 10 feet (QC): 4 (SBA) Walk 50ft with 2 Turns (QC): 4 (SBA) Walk 150 ft (QC): 4 (SBA) Gait Assistive Device: FWW 1 Step (curb) (QC): 3 (Jose) PT Plan Treatment/Plan Treatment Plan: Continue Plan of Care Treatment Plan: Bed Mobility, Education, Functional Activity Jaida, Functional Strength, Gait, Safety, Therapeutic Exercise, Transfers Frequency: 11 times per week Estimated Hrs Per Day: .25 hour per day Patient and/or Family Agrees t: Yes Time/GCodes Time In: 1348 Time Out: 1403 Total Billed Treatment Time: 15 Total Billed Treatment 1 visit FA 15min JACK RYAN PT May 21, 2019 14:11 POS
[2019-05-21 18:00] VITALS: BP 168/74
[2019-05-21] MEDS: MELATONIN 3 MG TABLET PO SCH (21:08)
[2019-05-21] MEDS: TOLTERODINE LA 4 MG (DETROL) CAP PO SCH (21:08)
[2019-05-21] MEDS: risperiDONE 1 MG (RisperDAL) TAB PO SCH (21:08)
[2019-05-21] MEDS: GABAPENTIN 600 MG (NEURONTIN) TAB PO SCH (21:08)
[2019-05-21] MEDS: MENTHOL/ZINC OXIDE (CALMOSEPTINE) 113 GM TUBE TOP SCH (21:10)
[2019-05-22 05:30] VITALS: BP 188/77
[2019-05-22] MEDS: inSUlin ASPART (NovoLOG) 1 UNIT/0.01 ML (CHARGE PER UNIT) SC SCH ×7 (06:20→21:48)
[2019-05-22] MEDS: GABAPENTIN 300 MG (NEURONTIN) CAP PO SCH ×3 (06:27→18:07)
[2019-05-22] MEDS: LEVOTHYROXINE 75 MCG (LEVOTHROID) TABLET PO SCH (06:27)
[2019-05-22] MEDS: PANTOPRAZOLE 40 MG (PROTONIX) TAB PO SCH (09:10)
[2019-05-22] MEDS: APIXABAN 5 MG (ELIQUIS) TABLET PO SCH ×2 (09:10→21:47)
[2019-05-22] MEDS: amLODIPine 10 MG (NORVASC) TAB PO SCH (09:10)
[2019-05-22] MEDS: DOCUSATE SODIUM 100 MG (COLACE) CAP PO SCH ×3 (09:10→21:46)
[2019-05-22] MEDS: MENTHOL/ZINC OXIDE (CALMOSEPTINE) 113 GM TUBE TOP SCH ×2 (09:11→21:48)
[2019-05-22] MEDS: ASPIRIN E.C. 81 MG (ECOTRIN) TAB PO SCH (09:11)
[2019-05-22] MEDS: FLUTICASONE NASAL SPRAY (FLONASE) 16 GM BTL NS SCH ×3 (09:11→21:46)
--- NOTE | 2019-05-22 11:50 | Physical Therapy Daily Note ---
PT Daily Note-Current Subjective No complaints on arrival. Mental Status Patient Orientation: Person, Place, Time, Situation Transfers SCALE: Activities may be completed with or without assistive devices. 8-Quysiaehmp-sfkjffp completes the activity by him/herself with no assistance from a helper. 5-Set-up or Clean-up Assistance-helper sets up or cleans up; patient completes activity. [place] assists only prior to or following the activity. 4-Supervision or Touching Assistance-helper provides verbal cues and/or touching/steadying and/or contact guard assistance as patient completes activity. Assistance may be provided throughout the activity or intermittently. 3-Partial/Moderate Assistance-helper does LESS THAN HALF the effort. [place] lifts, holds or supports trunk or limbs, but provides less than half the effort. 2-Substantial/Maximal Assistance-helper does MORE THAN HALF the effort. [place] lifts or holds trunk or limbs and provides more than half the effort. 3-Pkkozbvor-zuoffc does ALL the effort. Patient does none of the effort to complete the activity. Or, the assistance of 2 or more helpers is required for the patient to complete the activity. If activity was not attempted, code reason: 7-Patient Refused. 9-Not Applicable-not attempted and the patient did not perform the activity before the current illness, exacerbation or injury. 10-Not Attempted due to Environmental Limitations-(lack of equipment, weather restraints, etc.). 88-Not Attempted due to Medical Conditions or Safety Concerns. Transfers (B, C, W/C): 5 Sit to Stand (QC): 5 Bed to/from Chair: 5 Weight Bearing Right Lower Extremity: Right Full Weight Bearing Left Lower Extremity: Left Full Weight Bearing Gait Training Does the Patient Walk?: Yes Gait: 5 Distance: 200 Gait Persons Needed: 1 Gait Assistive Device: FWW Wheelchair Training Does the Pt Use a Wheelchair?: No Exercises Seated Therapy Exercises: LE Protocol Seated Reps: 20 Assessment Pt showed good stability and no signs of fatigue or dyspnea during gait. PT Shelter Goals Shelter Goals PT Shelter Goals Time Frame: May 19, 2019 Sit to Lying (QC): 4 (SBA) Lying-Sitting on Side/Bed(QC): 4 (SBA) Sit to Stand (QC): 4 (SBA) Roll Left to Right (QC): 6 Distance: 150' Walk 10 feet (QC): 4 (SBA) Walk 50ft with 2 Turns (QC): 4 (SBA) Walk 150 ft (QC): 4 (SBA) Gait Assistive Device: FWW 1 Step (curb) (QC): 3 (Jose) PT Plan Treatment/Plan Treatment Plan: Continue Plan of Care Treatment Plan: Bed Mobility, Education, Functional Activity Jaida, Functional Strength, Gait, Safety, Therapeutic Exercise, Transfers Frequency: 11 times per week Estimated Hrs Per Day: .25 hour per day Patient and/or Family Agrees t: Yes Time/GCodes Time In: 924 Time Out: 09 Total Billed Treatment Time: 15 Total Billed Treatment 1. gt 15 ATUL GONZALEZ PT May 22, 2019 11:50 POS
--- NOTE | 2019-05-22 13:57 | Progress Note - Cardiology ---
Cardiology SOAP Progress Note Subjective: Feels well today No cp or palp or syncope or shortness of breath Objective: I&O/Vital Signs 05/22/19 05/22/19 05/22/19 05/22/19 03:30 05:30 07:45 09:00 Temp 36.8 Pulse 72 Resp 14 B/P (MAP) 188/77 (114) Pulse Ox 94 O2 Delivery Room Air Room Air Room Air Room Air 05/22/19 09:45 Temp 36.8 05/22/19 00:00 Intake Total 2540 ml Output Total 1350 ml Balance 1190 ml Weight (Pounds): 224 Weight (Ounces): 0.9 Weight (Calculated Kilograms): 101.617864 Constitutional: appears stated age, AAO x 3; No apparent distress; well- developed, well-nourished Respiratory: chest is bilaterally symmetric, lungs clear to auscultation Cardiovascular: regular rate-rhythm, S1 and S2 Gastrointestional: soft, audible bowel sounds; No spleenomegaly Extremities: No clubbing, No cyanosis; no lower extremity edema bilateral; No significant edema Neurologic/Psychiatric: alert, oriented x 3, other (moves all limbs equally) Skin: normal color, warm/dry; No rash, No ulcerations Results/Procedures: Labs Laboratory Tests 05/21/19 16:18: Glucometer 225H 05/21/19 21:24: Glucometer 136H 05/22/19 05:07: Glucometer 172H 05/22/19 10:54: Glucometer 153H A/P: Assessment: PAF (on ILR) Suspected recent ischemic stroke Hypertension DM II Obesity with BMI approx 35 Plan: * I interviewed and examined her and reviewed her records * Continue current regimen * Monitor labs from time to time * I answered her CV-related questions SANTOS SHELBY MD FACP FAC CCDS May 22, 2019 13:57 POS
[2019-05-22 18:00] VITALS: BP 150/83
[2019-05-22] MEDS: risperiDONE 1 MG (RisperDAL) TAB PO SCH (21:47)
[2019-05-22] MEDS: GABAPENTIN 600 MG (NEURONTIN) TAB PO SCH (21:47)
[2019-05-22] MEDS: MELATONIN 3 MG TABLET PO SCH (21:47)
[2019-05-22] MEDS: TOLTERODINE LA 4 MG (DETROL) CAP PO SCH (21:47)
[2019-05-23 05:06] VITALS: BP 145/79
[2019-05-23] MEDS: inSUlin ASPART (NovoLOG) 1 UNIT/0.01 ML (CHARGE PER UNIT) SC SCH ×7 (05:34→21:00)
[2019-05-23] MEDS: GABAPENTIN 300 MG (NEURONTIN) CAP PO SCH ×3 (06:04→18:27)
[2019-05-23] MEDS: LEVOTHYROXINE 75 MCG (LEVOTHROID) TABLET PO SCH (06:04)
[2019-05-23] MEDS: PANTOPRAZOLE 40 MG (PROTONIX) TAB PO SCH (09:26)
[2019-05-23] MEDS: ASPIRIN E.C. 81 MG (ECOTRIN) TAB PO SCH (09:26)
[2019-05-23] MEDS: DOCUSATE SODIUM 100 MG (COLACE) CAP PO SCH ×3 (09:26→22:58)
[2019-05-23] MEDS: APIXABAN 5 MG (ELIQUIS) TABLET PO SCH ×2 (09:26→21:20)
[2019-05-23] MEDS: amLODIPine 10 MG (NORVASC) TAB PO SCH (09:26)
[2019-05-23] MEDS: FLUTICASONE NASAL SPRAY (FLONASE) 16 GM BTL NS SCH ×2 (09:27→21:00)
[2019-05-23] MEDS: MENTHOL/ZINC OXIDE (CALMOSEPTINE) 113 GM TUBE TOP SCH ×2 (09:27→21:00)
--- NOTE | 2019-05-23 15:51 | Progress Note - Cardiology ---
Cardiology SOAP Progress Note Subjective: No cp or palp or syncope or shortness of breath Gen malaise is improving Objective: I&O/Vital Signs 05/23/19 05/23/19 05/23/19 05/23/19 05:06 09:00 10:00 11:18 Temp 36.6 36.6 Pulse 69 64 Resp 14 B/P (MAP) 145/79 (101) Pulse Ox 97 95 O2 Delivery Room Air Room Air FiO2 21 05/23/19 11:18 Pulse Ox 95 O2 Delivery Room Air 05/23/19 00:00 Intake Total 2710 ml Output Total 1800 ml Balance 910 ml Weight (Pounds): 224 Weight (Ounces): 0.9 Weight (Calculated Kilograms): 101.210914 Constitutional: appears stated age, AAO x 3; No apparent distress; well- developed, well-nourished Respiratory: chest is bilaterally symmetric, lungs clear to auscultation Cardiovascular: regular rate-rhythm, S1 and S2 Gastrointestional: soft, audible bowel sounds; No spleenomegaly Extremities: No clubbing, No cyanosis; no lower extremity edema bilateral; No significant edema Neurologic/Psychiatric: alert, oriented x 3, other (moves all limbs equally) Skin: normal color, warm/dry; No rash, No ulcerations Results/Procedures: Labs Laboratory Tests 05/22/19 16:04: Glucometer 178H 05/22/19 21:08: Glucometer 326H 05/23/19 05:22: Glucometer 135H 05/23/19 11:26: Glucometer 208H A/P: Assessment: PAF (on ILR) Suspected recent ischemic stroke Hypertension DM II Obesity with BMI approx 35 Plan: * Continue current regimen * Monitor labs from time to time SANTOS SHELBY MD FACP FAC CCDS May 23, 2019 15:51 POS
[2019-05-23 18:00] VITALS: BP 162/93
[2019-05-23] MEDS: MELATONIN 3 MG TABLET PO SCH (21:20)
[2019-05-23] MEDS: TOLTERODINE LA 4 MG (DETROL) CAP PO SCH (21:20)
[2019-05-23] MEDS: risperiDONE 1 MG (RisperDAL) TAB PO SCH (21:20)
[2019-05-23] MEDS: GABAPENTIN 600 MG (NEURONTIN) TAB PO SCH (21:20)
[2019-05-24] MEDS: LEVOTHYROXINE 75 MCG (LEVOTHROID) TABLET PO SCH (05:59)
[2019-05-24] MEDS: GABAPENTIN 300 MG (NEURONTIN) CAP PO SCH ×2 (05:59→11:37)
[2019-05-24] MEDS: inSUlin ASPART (NovoLOG) 1 UNIT/0.01 ML (CHARGE PER UNIT) SC SCH ×4 (06:00→11:37)
[2019-05-24 06:30] VITALS: BP 143/82
[2019-05-24] MEDS: APIXABAN 5 MG (ELIQUIS) TABLET PO SCH (08:49)
[2019-05-24] MEDS: DOCUSATE SODIUM 100 MG (COLACE) CAP PO SCH (08:49)
[2019-05-24] MEDS: amLODIPine 10 MG (NORVASC) TAB PO SCH (08:50)
[2019-05-24] MEDS: ASPIRIN E.C. 81 MG (ECOTRIN) TAB PO SCH (08:50)
[2019-05-24] MEDS: PANTOPRAZOLE 40 MG (PROTONIX) TAB PO SCH (08:50)
[2019-05-24] MEDS: FLUTICASONE NASAL SPRAY (FLONASE) 16 GM BTL NS SCH (08:51)
[2019-05-24] MEDS: MENTHOL/ZINC OXIDE (CALMOSEPTINE) 113 GM TUBE TOP SCH (08:51)
--- NOTE | 2019-05-24 09:00 | NUR ---
Notice of Medicare Non Coverage presented, reviewed, signed and placed in patient's chart. Patient voiced no intention to appeal and deny any needs or further questions at this time.
--- NOTE | 2019-05-24 09:55 | NUR ---
CM DISCHARGE PLANNING: Patient will dismiss to home today with Home Health Care for PT, OT, ST, et nursing. Choices were presented to the patient et she has elected [facility] as her provider. They were notified via telephone that she would be dismissing to home today. She will also have a new drug of Eliquis that she will be dismissing home on. Braulio PharmD will educate patient et family on this new medication when daughter Pauly is available. There has been no equipment needs identified. No further interventions noted.
--- NOTE | 2019-05-24 09:56 | Physical Therapy Daily Note ---
PT Daily Note-Current Subjective Patient agrees to PT at this time. Patient reports she is going home after MD sees her today. Pain Numeric Pain Scale: 2 Location: Right Location Body Site: Back (glute) Pain Description: Ache Mental Status Patient Orientation: Normal For Age Transfers SCALE: Activities may be completed with or without assistive devices. 6-Yevdndhzoi-ifxvxfg completes the activity by him/herself with no assistance from a helper. 5-Set-up or Clean-up Assistance-helper sets up or cleans up; patient completes activity. [place] assists only prior to or following the activity. 4-Supervision or Touching Assistance-helper provides verbal cues and/or touching/steadying and/or contact guard assistance as patient completes activity. Assistance may be provided throughout the activity or intermittently. 3-Partial/Moderate Assistance-helper does LESS THAN HALF the effort. [place] lifts, holds or supports trunk or limbs, but provides less than half the effort. 2-Substantial/Maximal Assistance-helper does MORE THAN HALF the effort. [place] lifts or holds trunk or limbs and provides more than half the effort. 3-Majmvbyhl-xwhxgp does ALL the effort. Patient does none of the effort to complete the activity. Or, the assistance of 2 or more helpers is required for the patient to complete the activity. If activity was not attempted, code reason: 7-Patient Refused. 9-Not Applicable-not attempted and the patient did not perform the activity before the current illness, exacerbation or injury. 10-Not Attempted due to Environmental Limitations-(lack of equipment, weather restraints, etc.). 88-Not Attempted due to Medical Conditions or Safety Concerns. Sit to Stand (QC): 6 Weight Bearing Right Lower Extremity: Right Full Weight Bearing Left Lower Extremity: Left Full Weight Bearing Gait Training Does the Patient Walk?: Yes Gait: 6 Distance: 400' Walk 10 feet (QC): 6 Walk 50 ft with 2 Turns(QC): 6 Walk 150 ft (QC): 6 Gait Assistive Device: FWW Normal pattern and pace, toe out/pronation, no rest breaks required or dizziness reported Exercises Seated Therapy Exercises: Ankle pumps, Long arc quads, Hip flexion, Hip abd/add Seated Reps: 10 Standing: Hamstring curls, Heel/toe raises, Marching Standing Reps: 10 Assessment Patient completed seated and standing exercises without difficulty. Patient able to stand from chair and ambulate without assistance. Ambulated 400' with normal pace and pattern and no reports of dizziness or fatigue. PT Alf Goals Alf Goals PT Mounter Clarinets Goals Time Frame: May 19, 2019 Sit to Lying (QC): 4 (SBA) Lying-Sitting on Side/Bed(QC): 4 (SBA) Sit to Stand (QC): 4 (SBA) Roll Left to Right (QC): 6 Distance: 150' Walk 10 feet (QC): 4 (SBA) Walk 50ft with 2 Turns (QC): 4 (SBA) Walk 150 ft (QC): 4 (SBA) Gait Assistive Device: FWW 1 Step (curb) (QC): 3 (Jose) PT Plan Treatment/Plan Treatment Plan: Discontinue PT, goals met Treatment Plan: Bed Mobility, Education, Functional Activity Jaida, Functional Strength, Gait, Safety, Therapeutic Exercise, Transfers Frequency: 11 times per week Estimated Hrs Per Day: .25 hour per day Patient and/or Family Agrees t: Yes Time/GCodes Time In: 844 Time Out: 859 Total Billed Treatment Time: 15 Total Billed Treatment 1 visit FA 15min JACK RYAN PT May 24, 2019 09:56 POS
[2019-05-24] MEDS ORDERED: RISP1TAB3 PO (10:10)
[2019-05-24] MEDS ORDERED: APIX5TAB PO (10:10)
[2019-05-24] MEDS ORDERED: INSU100V5 SQ (10:10)
[2019-05-24] MEDS ORDERED: ASPI-983 PO (10:10)
[2019-05-24] MEDS ORDERED: INSU100V16 SC (10:10)
[2019-05-24] MEDS ORDERED: ATOR80TA76 PO (10:10)
--- NOTE | 2019-05-24 10:18 | D/C HH Face to Face Order ---
D/C Face to Face Orders Reconcile Patient Problems Problems Reviewed?: Yes Instructions for Patient Via Farida travayl, Patient Instructions/FollowUp: Please continue to take your medications as written. Please follow up with your PCP, Dr Valerio in the next week to follow up this hospital stay and with Dr Zepeda as scheduled. Physician to follow Patient: Dr Valerio Discharge Diet for Home: ADA Diet Patient Data-Allergies,Ht & Wt Patient Allergies: Coded Allergies: No Known Drug Allergies (Verified , 05/06/19) Height (Feet): 5 Height (Inches): 2.00 Weight (Pounds): 224 Weight (Ounces): 0.9 Home Health Need/Face to Face Date of Face to Face: May 24, 2019 Clinical Findings: Generalized weakness and fatigue, Unsteady gait I have seen Pt ltci-so-tjdg: Yes Discharged To: Home Diagnosis/Conditions: Cryptogenic stroke Patient is Homebound due to: [place] fall risk due to instabilty, Muscle weakness Homebound Status Due to the above stated illness, injury or surgical procedure (medical condition or diagnosis) and associated clinical findings, the patient is homebound because of his/her inability to leave home except with aid of a supportive device and/or person AND leaving the home requires a considerable and taxing effort or is medically contraindicated. Pt req the following assistanc: Aid of another person, Walker Home Health Nursing Orders Home Health Services Order: Nursing Services, Optician-Evaluate & Treat, Physical Therapy-Evaluate & Treat Therapy Orders Therapy Orders: OT (must have SN or PT order), Physical Therapy Therapy Specific Orders: Eval assistive deivces, Teach enviro modifications/safety, Gait training, Increase strength/endurance Certify Stmt I certify that this patient is under my care and that I, a nurse practitioner or a physician; a communications assistant working with me, had a face to face encounter that - meets the physician face to face encounter requirements with this patient as dated. EMMY AUGUSTINE MD May 24, 2019 10:18 POS
--- NOTE | 2019-05-24 10:24 | Cardiology Progress Note ---
Cardiology SOAP Progress Note Subjective: No cardiac complaints. Objective: I&O/Vital Signs 05/25/19 00:00 Intake Total 1200 ml Balance 1200 ml Weight (Pounds): 224 Weight (Ounces): 0.9 Weight (Calculated Kilograms): 101.111570 Constitutional: appears stated age, AAO x 3; No apparent distress; well- developed, well-nourished Respiratory: chest is bilaterally symmetric, lungs clear to auscultation Cardiovascular: regular rate-rhythm, S1 and S2 Gastrointestional: soft, audible bowel sounds; No spleenomegaly Extremities: No clubbing, No cyanosis; no lower extremity edema bilateral; No significant edema Neurologic/Psychiatric: alert, oriented x 3, other (moves all limbs equally) Skin: normal color, warm/dry; No rash, No ulcerations Results/Procedures: Labs A/P: Assessment/Dx: Cryptogenic stroke, Hypertension, Diabetes, Paroxysmal atrial fibrillation Plan: Patient presented with acute encephalopathy and the working diagnosis from the primary team is acute ischemic stroke. Carotids are negative. Telemetry over 48 hours is negative for atrial fibrillation. Echocardiogram showed normal LV size and function. Limited echocardiogram with bubble study was negative for intracardiac shunting. This fulfills a diagnosis of cryptogenic stroke. Implantable loop recorder done 05/13/2019. Device interrogation today shows brief episodes of paroxysmal atrial fibrillation for total of 8 minutes. The patient denies any symptoms. There is a possibility that paroxysmal atrial fibrillation could be the reason for the cryptogenic stroke. I discussed at length with the patient, and daughter about risk of stroke. CHADSVASC score 6 (age over 75, Female gender, HTN, Stroke); OAC is superior to Aspirin for stroke prevention. Patient has three falls in the last one year. I discussed at length about risk of bleeding. The patient and family discussed and decided to start oral anticoagulation. We will start Eliquis twice a day. Thank you for your consultation. Please call me if you have any questions. Waqas Zepeda MD, FACP, FACC, FSCAI, FHRS, CCDS Interventional Cardiology Cardiac Electrophysiology Vascular Medicine and Endovascular Interventions Alyce ZEPEDA MD May 24, 2019 10:24 POS
--- NOTE | 2019-05-24 10:49 | NUR ---
provided discharge education to the patient about eliquis (apixaban) We discussed how to take the medication (twice daily, every day) and side effects including bleeding. We discussed the cost of the medication (1st month free with savings card -left in the room) and then fill through prescription insurance. I answered her questions about her medications, and recommended if more questions once discharged to follow up with The pharmacists at [facility] (where her prescriptions are filled at).
--- NOTE | 2019-05-24 12:41 | Therapy Team Discharge Summary ---
Therapy Discharge Summary Discharge Recommendations Date of Discharge 05-24-19 Therapy D/C Recommendations: Home w/ Family Support Occupational Therapy Pt. seen by occupational therapy to increase overall strength and independence with daily tasks. Pt. requires CGA/supervision with most tasks at discharge. Pt. has been educated in use of AE, but states that she does not care for it. Pt. has declined showering at this time, but will agree to sponge bathe. Pt. is discharging home with spouse and with other continued family support. Decreased Activ Tolerance, Impaired I ADL's, Impaired Self-Care Skills PT Practicing Urologist Goals Practicing Urologist Goals PT Jail Goals Time Frame: May 19, 2019 Roll Left to Right (QC): 6 Sit to Lying (QC): 4 (SBA) Lying-Sitting on Side/Bed(QC): 4 (SBA) Sit to Stand (QC): 4 (SBA) Distance: 150' Walk 10 feet (QC): 4 (SBA) Walk 50ft with 2 Turns (QC): 4 (SBA) Walk 150 ft (QC): 4 (SBA) Gait Assistive Device: FWW 1 Step (curb) (QC): 3 (Jose) OT Jail Goals Jail Goals Time Frame: May 26, 2019 Eating (QC): 6 (met) Oral Hygiene (QC): 5 (met) Shower/Bathe Self (QC): 5 (not met) Upper Body Dressing (QC): 5 (met) Lower Body Dressing (QC): 5 (not met) On/Off Footwear (QC): 5 (not met) Toileting Hygiene (QC): 5 (not met) Toilet/Commode Transfer (QC): 5 (not met) Additional Goals: 1-Demonstrate ADL Tasks, 2-Verbalize Understanding, 3- ImproveStrength/Jaida 1=Demonstrate adherence to instructed precautions during ADL tasks. 2=Patient will verbalize/demonstrate understanding of assistive devices/modifications for ADL. 3=Patient will improve strength/tolerance for activity to enable patient to perform ADL's. Speech Jail Goals Practicing Urologist Goals Patient will demonstrate improved expressive and receptive languag skills for increased function and accuracy of ADL's in the least restrictive environment. SHRUTI GARBER OT May 24, 2019 12:41 POS
--- NOTE | 2019-05-24 13:16 | Therapy Team Discharge Summary ---
Therapy Discharge Summary Discharge Recommendations Date of Discharge Therapy D/C Recommendations: Home w/ Family Support Physical Therapy Patient is now independent in bed mobility where she previously required minimal to stand by assistance. Patient previously needed moderate assistance to stand from bed or chair and can now complete independently. Patient ambulated 40' at evaluation with contact guard assistance and now ambulates 400' independently with FWW, requiring fewer breaks and with less fatigue. Goals addressed and attained. Home health to follow upon dismissal. Occupational Therapy Decreased Activ Tolerance, Impaired I ADL's, Impaired Self-Care Skills PT Jail Goals Jail Goals PT Jail Goals Time Frame: May 19, 2019 Roll Left to Right (QC): 6 Sit to Lying (QC): 4 (SBA; goal met) Lying-Sitting on Side/Bed(QC): 4 (SBA; goal met) Sit to Stand (QC): 4 (SBA; goal met) Distance: 150' Walk 10 feet (QC): 4 (SBA; goal met) Walk 50ft with 2 Turns (QC): 4 (SBA; goal met) Walk 150 ft (QC): 4 (SBA; goal met) Gait Assistive Device: FWW 1 Step (curb) (QC): 3 (Jose) OT Bee Breeder Goals Bee Breeder Goals Time Frame: May 26, 2019 Eating (QC): 6 (met) Oral Hygiene (QC): 5 (met) Shower/Bathe Self (QC): 5 (not met) Upper Body Dressing (QC): 5 (met) Lower Body Dressing (QC): 5 (not met) On/Off Footwear (QC): 5 (not met) Toileting Hygiene (QC): 5 (not met) Toilet/Commode Transfer (QC): 5 (not met) Additional Goals: 1-Demonstrate ADL Tasks, 2-Verbalize Understanding, 3- ImproveStrength/Jaida 1=Demonstrate adherence to instructed precautions during ADL tasks. 2=Patient will verbalize/demonstrate understanding of assistive devices/modifications for ADL. 3=Patient will improve strength/tolerance for activity to enable patient to perform ADL's. Speech Bee Breeder Goals Jail Goals Patient will demonstrate improved expressive and receptive languag skills for increased function and accuracy of ADL's in the least restrictive environment. JACK RYAN PT May 24, 2019 13:16 POS
--- NOTE | 2019-05-24 13:36 | Therapy Team Discharge Summary ---
Therapy Discharge Summary Discharge Recommendations Date of Discharge Therapy D/C Recommendations: Home w/ Family Support Occupational Therapy Decreased Activ Tolerance, Impaired I ADL's, Impaired Self-Care Skills Speech-Language Pathology Patient was seen in the Swingbed room for aphasia therapy. The patient has met all ST goals. She is discharging to home this date with skilled ST discharge as well. PT Prison Goals Commercial Credit Officer Goals PT Commercial Credit Officer Goals Time Frame: May 19, 2019 Roll Left to Right (QC): 6 Sit to Lying (QC): 4 (SBA; goal met) Lying-Sitting on Side/Bed(QC): 4 (SBA; goal met) Sit to Stand (QC): 4 (SBA; goal met) Distance: 150' Walk 10 feet (QC): 4 (SBA; goal met) Walk 50ft with 2 Turns (QC): 4 (SBA; goal met) Walk 150 ft (QC): 4 (SBA; goal met) Gait Assistive Device: FWW 1 Step (curb) (QC): 3 (Jose) OT Prison Goals Commercial Credit Officer Goals Time Frame: May 26, 2019 Eating (QC): 6 (met) Oral Hygiene (QC): 5 (met) Shower/Bathe Self (QC): 5 (not met) Upper Body Dressing (QC): 5 (met) Lower Body Dressing (QC): 5 (not met) On/Off Footwear (QC): 5 (not met) Toileting Hygiene (QC): 5 (not met) Toilet/Commode Transfer (QC): 5 (not met) Additional Goals: 1-Demonstrate ADL Tasks, 2-Verbalize Understanding, 3- ImproveStrength/Jaida 1=Demonstrate adherence to instructed precautions during ADL tasks. 2=Patient will verbalize/demonstrate understanding of assistive devices/modifications for ADL. 3=Patient will improve strength/tolerance for activity to enable patient to perform ADL's. Speech Commercial Credit Officer Goals Prison Goals Patient will demonstrate improved expressive and receptive languag skills for increased function and accuracy of ADL's in the least restrictive environment. JALEN BEAL May 24, 2019 13:36 POS
--- NOTE | 2019-05-24 14:04 | NUR ---
provided prayer and Communion.
--- NOTE | 2019-06-07 20:06 | Discharge Summary ---
Diagnosis/Chief Complaint Date of Admission May 12, 2019 at 10:04 Date of Discharge May 24, 2019 at 15:30 Discharge Date: May 24, 2019 Primary Care Tressa Stephens DO Discharge Diagnosis (1) Cryptogenic stroke Status: Acute (2) Paroxysmal atrial fibrillation Status: Chronic Discharge Summary Procedures/Consulations Dr Zepeda- Cardiology Discharge Physical Exam Allergies: Coded Allergies: No Known Drug Allergies (Verified , 05/06/19) General Appearance: No Apparent Distress, Chronically ill Respiratory: Lungs Clear, No Respiratory Distress Cardiovascular: Regular Rate, Rhythm, No Murmur Neurologic/Psychiatric: Alert, Oriented x3 Hospital Course Pt was admitted to [facility] hospital bed for skilled rehab following admission for cryptogenic stroke. She had a loop recorder placed which revealed atrial fibrillation and she was started on anticoagulation after consultation with cardiology. She continued with PT/OT/MECHANICAL PRODUCT ENGINEER and had a remarkable improvement in deficits. Home health was arranged for discharge and she was discharged home in stable condition. She is to follow up with Dr Valerio and Dr Zepeda to follow up this hospital stay. Labs (last 24 hrs) Patient resulted labs reviewed. Discussion & Recommendations Discharge Planning: >30 minutes discharge planning Discharge Home Medications: Active Scripts Active Novolog (Insulin Aspart) 100 Unit/1 Ml Susp 8 Unit SC WM Levemir (Insulin Determir) 1,000 Units/10 Ml Soln 15 Unit SQ HS Risperidone 1 Mg Tablet 1 Mg PO HS Aspirin EC (Aspirin) 81 Mg Tablet. 81 Mg PO DAILY Eliquis (Apixaban) 5 Mg Tablet 5 Mg PO BID Atorvastatin Calcium 80 Mg Tablet 80 Mg PO HS Reported Gabapentin 300 Mg Capsule 900 Mg PO HS LAST FILLED #450 4-25-19 TAKES 3 (300MG) CAPSULES Gaviscon Es Tablet Chew (Magnesium Carbonate/Al Hydrox) 1 Each Tab.chew 1-2 Tab.chew PO QID PRN Loperamide (Loperamide HCl) 2 Mg Tablet 2 Mg PO QID PRN Mucinex (Guaifenesin) 600 Mg Tab.er.12h 600 Mg PO TID PRN Fexofenadine HCl 180 Mg Tablet 180 Mg PO HS PRN Calcium 600 + Vit D 200 Tablet (Calcium Carbonate/Vitamin D3) 1 Each Tablet 1 Tab PO BID Multivitamins (Multivitamin) 1 Each Tablet 1 Tab PO DAILY Synthroid (Levothyroxine Sodium) 50 Mcg Tablet 50 Mcg PO DAILY Synthroid (Levothyroxine Sodium) 25 Mcg Tablet 25 Mcg PO DAILY Oxycodone HCl 10 Mg Tablet 10-20 Mg PO BID PRN Vitamin C (Ascorbic Acid) 1,000 Mg Tablet 1,000 Mg PO DAILY Esomeprazole Magnesium 40 Mg Capsule.dr 40 Mg PO DAILY Tolterodine Tartrate ER (Tolterodine Tartrate) 4 Mg Cap.er.24h 4 Mg PO HS Gabapentin 300 Mg Capsule 300-600 Mg PO TID LAST FILLED #450 11-12-18 Amlodipine Besylate 10 Mg Tablet 10 Mg PO DAILY LAST FILLED #90 09-14-18 Instructions to patient/family Please see electronic discharge instructions given to patient. Clinical Quality Measures DVT/VTE Risk/Contraindication: Risk Factor Score Per Nursin EMMY AUGUSTINE MD Jun 07, 2019 20:06 POS
== END 2019-05-24 15:30 | disposition home health service (06) | DRG 42 ==
LOC: 4TH 10:04
PROVIDERS: ADMIT Family Medicine; ATTEND Family Medicine
PROC: 0JH632Z Insertion of Monitoring Device into Chest Subcutaneous Tissue and Fascia, Percutaneous Approach (ICD-10-PCS; principal; 2019-05-13)
DX: I69.898 Other sequelae of other cerebrovascular disease (principal); I69.821 Dysphasia following other cerebrovascular disease; I48.0 Paroxysmal atrial fibrillation; I65.29 Occlusion and stenosis of unspecified carotid artery; I10 Essential (primary) hypertension; E11.65 Type 2 diabetes mellitus with hyperglycemia; K21.9 Gastro-esophageal reflux disease without esophagitis; E03.9 Hypothyroidism, unspecified; E11.40 Type 2 diabetes mellitus with diabetic neuropathy, unspecified; E11.618 Type 2 diabetes mellitus with other diabetic arthropathy; Z66 Do not resuscitate; E78.00 Pure hypercholesterolemia, unspecified; E87.6 Hypokalemia; E83.42 Hypomagnesemia; R19.7 Diarrhea, unspecified; E66.9 Obesity, unspecified; Z68.35 Body mass index [BMI] 35.0-35.9, adult
CPT/HCPCS: 33285; 36415; 70450; 80048; 82962; 83735; 85025; 85027; 93308; 94760

== ENCOUNTER → 2020-01-24 | Outpatient (CLI) | payer MEDICARE, BC ==
[~2020-01-24] MED LIST changes: -ACETAMINOPHEN 650 MG SUPP (TYLENOL) PR PRN; +APIX5TAB PO; -ARTIFICAL TEARS 0.4 ML UNIT DOSE (REFRESH PLUS) OU PRN; +ASPI-983 PO; -ASPIRIN PO PRN; +ATOR80TA76 PO; -BISACODYL 10 MG SUPP (DULCOLAX) PR PRN; -CAFFEINE PO PRN; +INSU100V16 SC; +INSU100V5 SQ; -LOPERAMIDE 2 MG (IMODIUM) TABLET PO PRN; -LORazepam INJ 2 MG/ML (ATIVAN) VIAL IVP PRN; +MULT-567 PO; -MULT1TAB69 PO; -ONDANSETRON 4 MG/2 ML (SDV) Z0FRAN IVP PRN; -PIPERACILLIN/TAZOBACTAM (BULK) 4.5 GM in NS (IVPB) 100 ML IV SCH; -POLYETHYLENE GLYCOL 17 GM (MIRALAX) PACK PO PRN; +RISP1TAB3 PO; -RT-ALBUTEROL SULF 2.5 MG/3 ML PRE-MIX VIAL INH PRN
[2020-01-24 13:03] LABS: BASOPHILS # (AUTO) 0.1 10^3/uL (0.0-0.1); BASOPHILS % (AUTO) 1 % (0-10); EOSINOPHILS # (AUTO) 0.2 10^3/uL (0.0-0.3); EOSINOPHILS % (AUTO) 4 % (0-10); HEMATOCRIT 37 % (35-52); HEMOGLOBIN 11.6 G/DL (11.5-16.0); LYMPHOCYTES # (AUTO) 1.9 X 10^3 (1.0-4.0); LYMPHOCYTES % (AUTO) 28 % (12-44); MEAN CORPUSCULAR HEMOGLOBIN 27 PG (25-34); MEAN CORPUSCULAR HGB CONC 31 G/DL (32-36); MEAN CORPUSCULAR VOLUME 87 FL (80-99); MEAN PLATELET VOLUME 10.8 FL (7.4-10.4); MONOCYTES # (AUTO) 0.7 X 10^3 (0.0-1.0); MONOCYTES % (AUTO) 10 % (0-12); NEUTROPHILS # (AUTO) 3.9 X 10^3 (1.8-7.8); NEUTROPHILS % (AUTO) 57 % (42-75); PLATELET COUNT 225 10^3/uL (130-400); RED CELL DISTRIBUTION WIDTH 17.6 % (10.0-14.5); WHITE BLOOD COUNT 6.7 10^3/uL (4.3-11.0)
[2020-01-24 13:28] LABS: ALBUMIN 3.4 GM/DL (3.2-4.5); BILIRUBIN,TOTAL 0.4 MG/DL (0.1-1.0); CALCIUM 8.7 MG/DL (8.5-10.1); CREATININE SERUM 1.06 MG/DL (0.60-1.30); POTASSIUM 4.6 MMOL/L (3.6-5.0); TOTAL PROTEIN 7.2 GM/DL (6.4-8.2)
== END ==
LOC: EDSTATUS 05-18 15:00 → ONC 12:45
PROVIDERS: ATTEND Internal Medicine Hematology & Oncology
DX: D69.3 Immune thrombocytopenic purpura (principal); D36.9 Benign neoplasm, unspecified site; Z90.49 Acquired absence of other specified parts of digestive tract; Z87.2 Personal history of diseases of the skin and subcutaneous tissue
CPT/HCPCS: 80053; 83615; 85025; G0463; 99213

== ENCOUNTER 2022-01-24 05:11 | Inpatient (IN) | payer MEDICARE, BC ==
[~2022-01-24] VITALS: Ht 157 cm; Wt 95.8 kg
[2022-01-24] VITALS (14 sets, daily range): BP systolic 119–186; BP diastolic 60–107
[~2022-01-24 05:11] MED LIST changes: -ALPR0.254 PO; +AMLO-251 PO; -AMLO10TA7 PO; +ASCO100024 PO; -ASCO10006 PO; +ASPI-1238 PO; -ASPI-983 PO; +CALC-140 PO; -CALC-6 PO; +CALC1TAB84 PO; +CLN.1T PO; -CLON0.1T PO; +FENT1PAT8 TD; -FEXO-46 PO; +GABA300C PO; +HYDR-700 PO; +INSU100I14 SQ; +INSU100I29 SQ; +LEVO75TA PO; +LOSA50TA63 PO; +METO-333 PO; +MULT-1136 PO; +NF-ALLE180 PO; -OMEG-105 PO; +OMEG-218 PO; +POTA-169 PO; -POTA20TA8 PO; -RISP1TAB3 PO; +RISP1TAB93 PO; -TOLT4CAP13 PO; +TOLT4CAP26 PO; +VENL-48 PO
[2022-01-24] MEDS ORDERED: NITROGLYCERIN 0.4 MG SL TABS BTL 25'S SL PRN (05:15)
[2022-01-24] MEDS ORDERED: ASPIRIN 81 MG CHEW (CHILDREN'S ASA) PO ONE (05:15)
[2022-01-24] MEDS ORDERED: NITROGLYCERIN 2% OINT 1 GM UNIT DOSE PACKET TOP ONE (05:30)
[2022-01-24] MEDS ORDERED: FUROSEMIDE 40 MG/4 ML INJ (LASIX) IVP ONE (05:30)
--- NOTE | 2022-01-24 05:43 | ED Chest Pain ---
General Chief Complaint: Chest Wall Stated Complaint: CP Nursing Triage Note: PT ARRIVAL TO ER [facility]IA [facility] FROM [facility] WITH COMPLAINT OF CHEST PAIN SINCE 0300. PT STATES THATS HE WAS AWAKEN BY THE PAIN. PAIN IS MORE SEVERE WITH DEEP BREATHS. PAIN RADIATES TO BACK, BILATERAL SHOULDERS AND ARMS. PAIN AT 8/10. PT DID GET OXYCODONE AT NURSING FACILITY AT 0400 WITHOUT RELIEF. 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 Source: patient History of Present Illness Date Seen by Provider: Jan 24, 2022 Time Seen by Provider: 05:12 Initial Comments PT ARRIVES VIA EMS FROM [facility] C/O MID STERNAL CHEST PAIN THAT WOKE HER FROM SLEEP AT 0300 PAIN IS SHARP AND WORSE WITH BREATHING NO RADIATION OF PAIN C/O SHORTNESS OF BREATH NO FEVER/SWEATS/CHILLS HAS CHRONIC LEG EDEMA--RIGHT > LEFT--STATES SHE DOES NOT THINK IT IS WORSE THAN NORMAL NO NAUSEA/VOMITING/DIARRHEA OR ABDOMINAL PAIN PT WAS GIVEN OXYCODONE AT 0400 WITHOUT RELIEF PT WAS GIVEN 4 BABY ASPIRIN BY EMS. PT HAS HISTORY OF INTERMITTENT ATRIAL FIBRILLATION, HTN, IDDM, HYPERLIPIDEMIA PT HAS HAD COVID-19 VACCINE X 2 0R 3 ( PT CANNOT RECALL HOW MANY SHE HAS HAD) PCP: DR. SORENSEN COMPLAINT ADJUSTER: DR. SHELBY Allergies and Home Medications Allergies Coded Allergies: No Known Drug Allergies (Verified , 05/06/19) Patient Home Medication List Amlodipine Besylate (Amlodipine Besylate) 10 Mg Tablet, 10 MG PO DAILY, (Reported) Entered as Reported by: ABBY VAZQUEZ on 11/16/15 1717 Apixaban (Eliquis) 5 Mg Tablet, 5 MG PO BID, (Reported) Entered as Reported by: KEITH ROBLEDO on 03/02/21 1454 Atorvastatin Calcium (Atorvastatin Calcium) 80 Mg Tablet, 80 MG PO DAILY, (Reported) Entered as Reported by: KEITH ROBLEDO on 03/02/21 1454 Calcium Carbonate/Vitamin D3 (Calcium + Vitamin D Tablet) 1 Each Tablet, 1 EACH PO DAILY, (Reported) Entered as Reported by: KEITH ROBLEDO on 03/02/21 1455 Esomeprazole Magnesium (Esomeprazole Magnesium) 40 Mg Capsule.dr, 40 MG PO DAILY, (Reported) Entered as Reported by: ABBY VAZQUEZ on 11/16/151716 Fentanyl (Fentanyl Patch 25 MCG) 1 Each Patch.td72, 25 MCG TD Q72H Prescribed by: ENRRIQUE SALAS on 03/06/21 124 Gabapentin (Neurontin) 300 Mg Capsule, 900 MG PO HS, (Reported) Entered as Reported by: KEITH ROBLEDO on 03/02/21 145 Hydroxyzine HCl (Hydroxyzine HCl) 25 Mg Tablet, 25 MG PO TID PRN for ITCHING, (Reported) Entered as Reported by: KEITH ROBLEDO on 03/02/21 145 Insulin Aspart (Novolog Flexpen) 300 Units/3 Ml Solution, 8 UNITS SQ TIDWM, (Reported) Entered as Reported by: KEITH ROBLEDO on 03/02/21 145 Insulin Detemir (Levemir Flextouch) 100 Unit/1 Ml Insuln.pen, 15 UNITS SQ HS, (Reported) Entered as Reported by: KEITH ROBLEDO on 03/02/21 145 Levothyroxine Sodium (Synthroid) 75 Mcg Tablet, 75 MCG PO DAILY, (Reported) Entered as Reported by: KEITH ROBLEDO on 03/02/21 145 Losartan Potassium (Losartan Potassium) 50 Mg Tablet, 50 MG PO DAILY Prescribed by: ENRRIQUE SALAS on 03/06/21 124 Metoprolol Tartrate (Metoprolol Tartrate) 25 Mg Tablet, 12.5 MG PO DAILY, (Reported) Entered as Reported by: KEITH ROBLEDO on 03/02/21 145 Multivitamin (Multivitamin) 1 Each Tablet, 1 EACH PO DAILY, (Reported) Entered as Reported by: KEITH ROBLEDO on 03/02/21 145 Oxycodone HCl (Oxycodone HCl) 10 Mg Tablet, 10 MG PO BID PRN for PAIN-SEVERE Prescribed by: ENRRIQUE SALAS on 03/06/21 124 Tolterodine Tartrate (Tolterodine Tartrate ER) 4 Mg Cap.er.24h, 4 MG PO DAILY, (Reported) Entered as Reported by: ABBY VAZQUEZ on 11/16/151716 Venlafaxine HCl (Venlafaxine HCl ER) 37.5 Mg Cap.er.24h, 37.5 MG PO DAILY, (Reported) Entered as Reported by: KEITH ROBLEDO on 03/02/21 145 Review of Systems Review of Systems Constitutional: no symptoms reported Respiratory: See HPI, Orthopnea, Shortness of Air Cardiovascular: See HPI, Edema; Denies Lightheadedness Gastrointestinal: No Symptoms Reported; Denies Abdominal Pain, Denies Nausea, Denies Vomiting Genitourinary: No Symptoms Reported Musculoskeletal: other (CHRONIC LEG SWELLING) Skin: other (CHRONIC WOUNDS TO RIGHT LOWER LEG) Psychiatric/Neurological: No Symptoms Reported Endocrine: No Symptoms Reported Hematologic/Lymphatic: No Symptoms Reported Past Naahmhk-Yggkoz-Uddupq Hx Patient Social History Tobacco Use?: No Use of E-Cig and/or Vaping dev: No Substance use?: No Alcohol Use?: No Pt feels they are or have been: No Immunizations Up To Date Tetanus Booster (TDap): Unknown PED Vaccines UTD: No Influenza Vaccine Up-to-Date: Yes; Up-to-Date First/Initial COVID19 Vaccinat: September COVID19 Vaccination Wally: October COVID19 Vaccination Date: SEPTEMBER 2021 Past Medical History Surgeries: Yes (R KNEE REPLACEMENT, hernia w/mesh placement Dr Jones ) Abdominal, Appendectomy, Gallbladder, Hysterectomy, Joint Replacement, Orthopedic, Tonsillectomy Respiratory: No Cardiac: Yes (INTERMITTENT ATRIAL FIBRILLATION ) Atrial Fibrillation, Chronic Edema/Swelling, High Cholesterol, Hypertension Neurological: Yes (? PARKINSON'S ? ) Neuropathy Reproductive Disorders: No Female Reproductive Disorders: Denies Sexually Transmitted Disease: No HIV/AIDS: No Gastrointestinal: Yes (GERD) Gastroesophageal Reflux, Hiatal Hernia, Irritable Bowel Musculoskeletal: Yes (ARTHRITIS) Degenerate Disk Disease, Chronic Back Pain Endocrine: Yes (MORBID OBESTIY) Diabetes, Insulin dep, Hypothyroidsim Cataract Loss of Vision: Denies Hearing Impairment: Denies Cancer: No Psychosocial: Yes Anxiety, Depression Integumentary: Yes (bullous pemphigoid) Blood Disorders: No Family Medical History Cancer 03 MOTHER (STOMACH COLON ESOPHAGEAL) Cancer of colon 03 MOTHER 09 SISTER Family history: Cardiovascular disease 09 SISTER (HAS PACEMAKER) Family history: Diabetes mellitus 03 FATHER Myocardial infarction 03 FATHER No Family History of: Abdominal aortic aneurysm Bryan's disease Alcoholism Aphasia Cataract Chest pain Congenital heart disease Congestive heart failure Cystic fibrosis Dementia Dysphagia Family history: Allergy Family history: Alzheimer's disease Family history: Arthritis Family history: Asthma Family history: Coronary thrombosis Family history: Gastrointestinal disease Family history: Glaucoma Family history: Hypertension Family history: Osteoporosis Family history: Thyroid disorder Headache Hearing loss Heart disease Hereditary disease History of - anemia History of - respiratory disease History of drug abuse Human immunodeficiency virus (HIV) seropositivity Hypercholesterolemia Infertile Kidney disease Malignant neoplasm of lung Parkinson's disease Prostate cancer Psychotic disorder Seizure disorder Stroke Tuberculosis Visual impairment No Pertinent Family Hx Physical Exam Vital Signs Vital Signs - First Documented 01/24/22 01/24/22 05:24 06:16 Temp 36.4 Pulse 67 Resp 22 B/P (MAP) 153/113 (126) Pulse Ox 92 O2 Delivery Room Air O2 Flow Rate 2.00 Capillary Refill : Less Than 3 Seconds Height, Weight, BMI Height: 5'2.00" Weight: 224lbs. 0.9oz. 101.638338bi; 36.00 BMI Method:Stated Progress/Results/Core Measures Results/Orders Lab Results Laboratory Tests Test 01/24/22 05:35 Range/Units White Blood Count 11.2 H 4.3-11.0 10^3/uL Red Blood Count 4.28 3.80-5.11 10^6/uL Hemoglobin 9.9 L 11.5-16.0 g/dL Hematocrit 35 35-52 % Mean Corpuscular Volume 81 80-99 fL Mean Corpuscular Hemoglobin 23 L 25-34 pg Mean Corpuscular Hemoglobin Concent 29 L 32-36 g/dL Red Cell Distribution Width 17.0 H 10.0-14.5 % Platelet Count 205 130-400 10^3/uL Mean Platelet Volume 11.0 9.0-12.2 fL Immature Granulocyte % (Auto) 1 % Neutrophils (%) (Auto) 78 H 42-75 % Lymphocytes (%) (Auto) 11 L 12-44 % Monocytes (%) (Auto) 8 0-12 % Eosinophils (%) (Auto) 3 0-10 % Basophils (%) (Auto) 1 0-10 % Neutrophils # (Auto) 8.7 H 1.8-7.8 10^3/uL Lymphocytes # (Auto) 1.2 1.0-4.0 10^3/uL Monocytes # (Auto) 0.9 0.0-1.0 10^3/uL Eosinophils # (Auto) 0.3 0.0-0.3 10^3/uL Basophils # (Auto) 0.1 0.0-0.1 10^3/uL Immature Granulocyte # (Auto) 0.1 0.0-0.1 10^3/uL Prothrombin Time 17.5 H 12.2-14.7 SEC INR Comment 1.4 0.8-1.4 Activated Partial Thromboplast Time 34 24-35 SEC Sodium Level 137 135-145 MMOL/L Potassium Level 3.9 3.6-5.0 MMOL/L Chloride Level 102 98-107 MMOL/L Carbon Dioxide Level 23 21-32 MMOL/L Anion Gap 12 5-14 MMOL/L Blood Urea Nitrogen 14 7-18 MG/DL Creatinine 1.04 0.60-1.30 MG/DL Estimat Glomerular Filtration Rate 52 BUN/Creatinine Ratio 13 Glucose Level 248 H 70-105 MG/DL Calcium Level 8.5 8.5-10.1 MG/DL Corrected Calcium 8.8 8.5-10.1 MG/DL Magnesium Level 1.1 *L 1.6-2.4 MG/DL Total Bilirubin 0.6 0.1-1.0 MG/DL Aspartate Amino Transf (AST/SGOT) 49 H 5-34 U/L Alanine Aminotransferase (ALT/SGPT) 21 0-55 U/L Alkaline Phosphatase 222 H 40-136 U/L Total Creatine Kinase 74 29-168 U/L Creatine Kinase MB 2.2 <6.6 NG/ML Myoglobin 43.9 10.0-92.0 NG/ML Troponin I < 0.028 <0.028 NG/ML B-Type Natriuretic Peptide 163.4 H <100.0 PG/ML Total Protein 8.2 6.4-8.2 GM/DL Albumin 3.6 3.2-4.5 GM/DL Amylase Level 12 L 25-125 U/L Lipase 6 L 8-78 U/L My Orders Orders - SUSHIL NÚÑEZ DO Ekg Tracing (01/24/22 05:13) Chest 1 View, Ap/Pa Only (01/24/22 05:13) Ekg Tracing (01/24/22 05:13) Cbc With Automated Diff (01/24/22 05:13) Magnesium (01/24/22 05:13) Comprehensive Metabolic Panel (01/24/22 05:13) Myoglobin Serum (01/24/22 05:13) Protime With Inr (01/24/22 05:13) Partial Thromboplastin Time (01/24/22 05:13) Creatine Kinase (01/24/22 05:13) Creatine Kinase Mb (01/24/22 05:13) Lipase (01/24/22 05:13) Amylase (01/24/22 05:13) Bnp Jamie (01/24/22 05:13) Troponin I Jamie (01/24/22 05:13) Ed Iv/Invasive Line Start (01/24/22 05:13) O2 (01/24/22 05:13) Monitor-Rhythm Ecg Trace Only (01/24/22 05:13) O2 (01/24/22 05:13) Ed Iv/Invasive Line Start (01/24/22 05:13) Nitroglycerin 0.4 Mg Btl 25's (Nitrostat (01/24/22 05:15) Aspirin Chewable Tablet (Baby Aspirin Ch (01/24/22 05:15) Nitroglycerin Ointment (Nitrobid Ointme (01/24/22 05:30) Furosemide Injection (Lasix Injection) (01/24/22 05:30) Catheter(Urinary) Insert & Ass 03,15 (01/24/22 05:29) Ed Admission (Communication) (01/24/22 06:03) Magnesium 1 Gm/100 Ml Ivpb (Magnesium Angelo (01/24/22 06:30) Medications Given in ED Current Medications Medications Dose Ordered Sig/Alonzo Route Start Time Stop Time Status Last Admin Dose Admin Furosemide 40 mg ONCE ONCE IVP 01/24/22 05:30 01/24/22 05:31 DC 01/24/22 05:36 40 MG Nitroglycerin 1 inch ONCE ONCE TOP 01/24/22 05:30 01/24/22 05:31 DC 01/24/22 05:36 1 INCH Vital Signs/I&O 01/24/22 01/24/22 05:24 06:16 Temp 36.4 Pulse 67 73 Resp 22 17 B/P (MAP) 153/113 (126) 175/57 Pulse Ox 92 98 O2 Delivery Room Air Nasal Cannula O2 Flow Rate 2.00 2 Blood Pressure Mean: 126 Progress Progress Note : Progress Note GIVEN NITROPASTE AND LASIX WITH RESOLUTION OF CHEST PAIN SHORTNESS OF BREATH IMPROVED WITH O2 BP DOWN WITH NITROPASTE 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 Potential small bilateral pleural effusions. No pneumothorax. Heart remains upper limits of normal in size. Impression: 1. New basilar pulmonary opacities may be on the basis of pulmonary edema. 2. Possible small bilateral pleural effusions. Reviewed: Reviewed by Me Departure Communication (Admissions) 0600--SPOKE WITH DR. SORENSEN, ACCEPTS PT FOR ADMIT. SHE WILL PUT IN ADMIT ORDERS. 0630--SPOKE WITH DR. SHELBY AND INFORMED HIM OF CONSULT Impression Primary Impression: CHEST PAIN Additional Impressions: CHF (congestive heart failure) Intermittent atrial fibrillation HTN (hypertension) IDDM (insulin dependent diabetes mellitus) Departure-Patient Inst. Referrals: ENRRIQUE SALAS MD (PCP/Family) Primary Care Physician SUSHIL NÚÑEZ DO Jan 24, 2022 05:43
--- NOTE | 2022-01-24 05:49 | Diagnostic Imaging Report ---
CHEST 1 VIEW, AP/PA ONLY Indication: Chest pain. Comparison: 03/02/2021 Findings: Bibasilar heterogeneous opacities have developed. Potential small bilateral pleural effusions. No pneumothorax. Heart remains upper limits of normal in size. Impression: 1. New basilar pulmonary opacities may be on the basis of pulmonary edema. 2. Possible small bilateral pleural effusions. Dictated by: Dictated on workstation # [id number]
[2022-01-24 05:50] LABS: BASOPHILS # (AUTO) 0.1 10^3/uL (0.0-0.1); BASOPHILS % (AUTO) 1 % (0-10); EOSINOPHILS # (AUTO) 0.3 10^3/uL (0.0-0.3); EOSINOPHILS % (AUTO) 3 % (0-10); HEMATOCRIT 35 % (35-52); HEMOGLOBIN 9.9 g/dL (11.5-16.0); LYMPHOCYTES # (AUTO) 1.2 10^3/uL (1.0-4.0); LYMPHOCYTES % (AUTO) 11 % (12-44); MEAN CORPUSCULAR HEMOGLOBIN 23 pg (25-34); MEAN CORPUSCULAR HGB CONC 29 g/dL (32-36); MEAN CORPUSCULAR VOLUME 81 fL (80-99); MONOCYTES # (AUTO) 0.9 10^3/uL (0.0-1.0); MONOCYTES % (AUTO) 8 % (0-12); NEUTROPHILS # (AUTO) 8.7 10^3/uL (1.8-7.8); NEUTROPHILS % (AUTO) 78 % (42-75); PLATELET COUNT 205 10^3/uL (130-400); WHITE BLOOD COUNT 11.2 10^3/uL (4.3-11.0)
[2022-01-24 05:56] LABS: ALBUMIN 3.6 GM/DL (3.2-4.5)
[2022-01-24 05:57] LABS: POTASSIUM 3.9 MMOL/L (3.6-5.0)
[2022-01-24 05:58] LABS: CALCIUM 8.5 MG/DL (8.5-10.1)
[2022-01-24 05:59] LABS: TOTAL PROTEIN 8.2 GM/DL (6.4-8.2)
[2022-01-24 06:00] LABS: INR 1.4 (0.8-1.4); PROTHROMBIN TIME PATIENT 17.5 SEC (12.2-14.7)
[2022-01-24 06:01] LABS: BILIRUBIN,TOTAL 0.6 MG/DL (0.1-1.0)
[2022-01-24 06:03] LABS: CREATININE SERUM 1.04 MG/DL (0.60-1.30)
[2022-01-24 06:14] LABS: CREATINE KINASE MB 2.2 NG/ML (<6.6)
[2022-01-24 06:15] LABS: MAGNESIUM 1.1 MG/DL (1.6-2.4)
[2022-01-24] MEDS ORDERED: BISACODYL 10 MG SUPP (DULCOLAX) PR PRN (08:30)
[2022-01-24] MEDS ORDERED: polyethylene glycoL POWDER 17 GM (MIRALAX) PACK PO PRN (08:30)
[2022-01-24] MEDS ORDERED: diphenhydrAMINE 25 MG TAB (BENADRYL) PO PRN (08:30)
[2022-01-24] MEDS ORDERED: ANTACID SUSP 30 ML UDC (MYLANTA) PO PRN (08:30)
[2022-01-24] MEDS ORDERED: ACETAMINOPHEN 325 MG TABLET PO PRN (08:30)
[2022-01-24] MEDS ORDERED: LACTULOSE SYRUP 10GM/15ML (ENULOSE) 30ML UDC PO PRN (08:30)
[2022-01-24] MEDS ORDERED: ONDANSETRON 4 MG/2 ML (SDV) Z0FRAN IV PRN (08:30)
[2022-01-24] MEDS ORDERED: ONDANSETRON 4 MG (ZOFRAN) ORAL DISSOLVE TAB PO PRN (08:30)
[2022-01-24] MEDS ORDERED: CALCIUM CARBONATE 500 MG (TUMS) TAB.CHEW PO PRN (08:30)
[2022-01-24] MEDS ORDERED: MILK OF MAGNESIA 400 MG/5 ML 30 ML UDC PO PRN (08:30)
[2022-01-24] MEDS ORDERED: MELATONIN 3 MG TABLET PO PRN (08:30)
[2022-01-24] MEDS ORDERED: diphenhydrAMINE 50 MG/ML INJ (BENADRYL) IVP PRN (08:30)
[2022-01-24] MEDS: MAGNESIUM 1 GM/100 ML IVPB 100 ML IV SCH ×4 (08:37→12:50)
[2022-01-24] MEDS: SENNOSIDES 8.6 MG (SENOKOT) TAB PO SCH ×2 (08:44→21:52)
[2022-01-24] MEDS: DOCUSATE SODIUM 100 MG (COLACE) CAP PO SCH ×2 (08:44→21:52)
--- NOTE | 2022-01-24 09:00 | Consultation-Cardiology ---
HPI-Cardiology Cardiology Consultation: Date of Consultation 01/24/22 Time Seen by a Provider: 08:50 Date of Admission 01-24-22 Attending Physician Nba Salas MD Admitting Physician Admitting Physician: Tressa Stephens DO Attending Physician: Tressa Stephens DO Consulting Physician David Faith MD HPI: Chief Complaint: Chest pain Ms. Richard is an 86 yr old female admitted to 508 from the ED. She resides at [facility]. She states she woke up early this morning with sharp stabbing chest pain which radiated through to her back. She reports the pain was worse with inspiration. She reports she felt SOB d/t not being able to take a deep breath because of the sharp pain. She denies any palpitations, syncope or near syncope. She reports the discomfort has improved, and she is left with a "soreness" in her chest like a muscle ache. She has chronic bilat LE swelling, which she feels is unchanged in the recent past. She has a wound to her RLE which her PCP has been managing. She denies any n/v. She report she has chronic diarrhea. No c/o fever or chills. Review of Systems-Cardiology Review of Systems Constitutional: No chills, No fever, No malaise Eyes: No vision change Ears/Nose/Throat: No epistaxis, No recent hearing loss Respiratory: As described under HPI Cardiovascular: As described under HPI Gastrointestinal: As described under HPI Genitourinary: No dysuria, No hematuria Musculoskeletal: joint pain (chronic) Skin: As described under HPI Psychiatric/Neurological: No anxiety, No depression, No seizure, No focal weakness, No syncope Hematologic: No bleeding abnormalities RWZ-Ufamkd-Hvmzcy Hx Patient Social History 2nd Hand Smoke Exposure: No ( smoked but quit many years ago) Have you traveled recently?: No Alcohol Use?: No Pt feels they are or have been: No Immunizations Up To Date Tetanus Booster (TDap): Unknown Date of Pneumonia Vaccine: Aug 21, 2009 Date of Influenza Vaccine: Apr 20, 2011 Past Medical History PMH As described under Assessment. Family Medical History Family Medical History: She reports he father had CAD. She reports she has a sister with a pacemaker. Family History: 03 FATHER Family history: Diabetes mellitus Myocardial infarction 03 MOTHER Cancer (STOMACH COLON ESOPHAGEAL) Cancer of colon 09 SISTER Cancer of colon Family history: Cardiovascular disease (HAS PACEMAKER) Allergies and Home Medications Allergies Coded Allergies: No Known Drug Allergies (Verified , 05/06/19) Patient Home Medication List Amlodipine Besylate (Amlodipine Besylate) 10 Mg Tablet, 10 MG PO DAILY, (Reported) Entered as Reported by: ABBY VAZQUEZ on 11/16/15 3277 Last Action: Reviewed Apixaban (Eliquis) 5 Mg Tablet, 5 MG PO BID, (Reported) Entered as Reported by: KEITH ROBLEDO on 03/02/211453 Last Action: Reviewed Atorvastatin Calcium (Atorvastatin Calcium) 80 Mg Tablet, 80 MG PO HS, (Reported) Entered as Reported by: KEITH ROBLEDO on 03/02/211453 Last Action: Reviewed Carbidopa/Levodopa (Carbidopa-Levodopa 25-100 Tab) 25 Mg-100 Mg Tablet, 1 EA PO BID, (Reported) Entered as Reported by: DIANA RASHID on 01/24/221150 Last Action: Reviewed Cholestyramine (with Sugar) (Cholestyramine Powder) 4 Gram Powder, 4 GM PO 0900, (Reported) Entered as Reported by: DIANA RASHID on 01/24/221150 Last Action: Reviewed Gabapentin (Neurontin) 300 Mg Capsule, 300 MG PO BID, (Reported) Entered as Reported by: DIANA RASHID on 01/24/221150 Last Action: Reviewed Gabapentin (Gabapentin) 400 Mg Capsule, 400 MG PO 1200, (Reported) Entered as Reported by: DIANA RASHID on 01/24/221150 Last Action: Reviewed Hydrocortisone (Anusol-Hc) 2.5 % Cream..g., 1 APPLIC RC TID PRN for ITCHING, (Reported) Entered as Reported by: DIANA RASHID on 01/24/221150 Last Action: Reviewed Hydroxyzine HCl (Hydroxyzine HCl) 25 Mg Tablet, 25 MG PO Q8H PRN for ANXIETY, (Reported) Entered as Reported by: KEITH ROBLEDO on 03/02/211453 Last Action: Reviewed Insulin Aspart (Novolog Flexpen) 100 Unit/Ml (3 Ml) Solution, 12 UNITS SQ BID W/MEALS, (Reported) Entered as Reported by: KEITH ROBLEDO on 03/02/211453 Last Action: Reviewed Insulin Aspart (Novolog) 100 Unit/Ml Susp, 15 UNIT SQ 1130 W/ LUNCH, (Reported) Entered as Reported by: IDANA RASHID on 01/24/221150 Last Action: Reviewed Insulin Detemir (Levemir Flextouch) 100 Unit/Ml (3 Ml) Insuln.pen, 25 UNITS SQ HS, (Reported) Entered as Reported by: KEITH ROBLEDO on 03/02/211453 Last Action: Reviewed Levothyroxine Sodium (Synthroid) 75 Mcg Tablet, 75 MCG PO DAILY, (Reported) Entered as Reported by: KEITH ROBLEDO on 03/02/211453 Last Action: Reviewed Magnesium Oxide (Magnesium) 400 Mg Magnesium Tablet, 400 MG PO DAILY, (Reported) Entered as Reported by: DIANA RASHID on 01/24/221150 Last Action: Reviewed Metformin HCl (Metformin HCl) 500 Mg Tablet, 500 MG PO BID, (Reported) Entered as Reported by: DIANA RASHID on 01/24/221150 Last Action: Reviewed Methyl Salicylate/Menth/Camph (Muscle Rub Ultra Str Cream) 30 %-10 %-4 % Cream..g., 1 APPLIC TP TID PRN for PAIN-BREAKTHROUGH, (Reported) Entered as Reported by: DIANA RASHID on 01/24/221158 Last Action: Reviewed Metoprolol Succinate (Metoprolol Succinate) 25 Mg Tab.er.24h, 25 MG PO DAILY, (Reported) Entered as Reported by: DIANA RASHID on 01/24/221150 Last Action: Reviewed Omeprazole (Omeprazole) 20 Mg Capsule.dr, 20 MG PO DAILY, (Reported) Entered as Reported by: DIANA RASHID on 01/24/221150 Last Action: Reviewed Oxycodone HCl (Oxycodone HCl) 10 Mg Tablet, 10 MG PO Q8H PRN for PAIN-SEVERE (8- 10), (Reported) Entered as Reported by: DIANA RASHID on 01/24/221150 Last Action: Reviewed Pramipexole Di-HCl (Pramipexole Dihydrochloride) 0.125 Mg Tablet, 0.125 MG PO 1700, (Reported) Entered as Reported by: DIANA RASHID on 01/24/221150 Last Action: Reviewed Tolterodine Tartrate (Tolterodine Tartrate ER) 4 Mg Cap.er.24h, 4 MG PO DAILY, (Reported) Entered as Reported by: ABBY VAZQUEZ on 11/16/151716 Last Action: Reviewed Venlafaxine HCl (Venlafaxine HCl) 37.5 Mg Tab, 37.5 MG PO DAILY, (Reported) Entered as Reported by: DIANA RASHID on 01/24/22 1151 Last Action: Reviewed Discontinued Medications Calcium Carbonate/Vitamin D3 (Calcium + Vitamin D Tablet) 1 Each Tablet, 1 EACH PO DAILY, (Reported) Discontinued Reason: No Longer Taking Entered as Reported by: KEITH ROBLEDO on 03/02/211454 Last Action: Discontinued Esomeprazole Magnesium (Esomeprazole Magnesium) 40 Mg Capsule.dr, 40 MG PO DAILY, (Reported) Discontinued Reason: No Longer Taking Entered as Reported by: ABBY VAZQUEZ on 11/16/151716 Last Action: Discontinued Fentanyl (Fentanyl Patch 25 MCG) 1 Each Patch.td72, 25 MCG TD Q72H Discontinued Reason: No Longer Taking Prescribed by: NBA SALAS on 03/06/21 124 Last Action: Discontinued Gabapentin (Neurontin) 300 Mg Capsule, 900 MG PO HS, (Reported) Discontinued Reason: No Longer Taking Entered as Reported by: KEITH ROBLEDO on 03/02/211453 Last Action: Discontinued Losartan Potassium (Losartan Potassium) 50 Mg Tablet, 50 MG PO DAILY Discontinued Reason: No Longer Taking Prescribed by: NBA SALAS on 03/06/21 124 Last Action: Discontinued Metoprolol Tartrate (Metoprolol Tartrate) 25 Mg Tablet, 12.5 MG PO DAILY, (Reported) Discontinued Reason: No Longer Taking Entered as Reported by: KEITH ROBLEDO on 03/02/211453 Last Action: Discontinued Multivitamin (Multivitamin) 1 Each Tablet, 1 EACH PO DAILY, (Reported) Discontinued Reason: No Longer Taking Entered as Reported by: KEITH ROBLEDO on 03/02/211456 Last Action: Discontinued Oxycodone HCl (Oxycodone HCl) 10 Mg Tablet, 10 MG PO BID PRN for PAIN-SEVERE Discontinued Reason: No Longer Taking Prescribed by: NBA SALAS on 03/06/21 1243 Last Action: Discontinued Venlafaxine HCl (Venlafaxine HCl ER) 37.5 Mg Cap.er.24h, 37.5 MG PO DAILY, (Reported) Discontinued Reason: No Longer Taking Entered as Reported by: KEITH ROBLEDO on 03/02/21 7136 Last Action: Discontinued Physical Exam-Cardiology Physical Exam Vital Signs/I&O 01/24/22 01/25/22 01/25/22 01/25/22 23:41 01:00 03:26 07:00 Temp 36.5 36.7 Pulse 66 60 54 44 Resp 18 16 B/P (MAP) 119/67 (84) 110/63 (79) Pulse Ox 93 94 O2 Delivery Room Air Room Air 01/25/22 01/25/22 08:00 08:17 Temp 36.7 Pulse 74 Resp 20 B/P (MAP) 141/65 (90) Pulse Ox 97 94 O2 Delivery Room Air Room Air 01/25/22 00:00 Intake Total 1040 ml Output Total 725 ml Balance 315 ml Capillary Refill : Less Than 3 Seconds Constitutional: AAO x 3, well-developed, well-nourished HEENT: PERRL, hearing is well preserved, oral hygience is good Neck: No carotid bruit; carotid pulses are 2 + bilaterally Respiratory: No accessory muscle use, No respiratory distress; chest expansion is symmetric, chest is bilaterally symmetric, other (diminished bases bilat) Cardiovascular: irregularly irregular; No JVD; S1 and S2 Gastrointestinal: No tender; soft, round, audible bowel sounds Extremities: other (mild LE swelling; R>L) Neurologic/Psychiatric: grossly intact (moves all extremities) Skin: other (RLE with redness, swelling and dressing with serous drainage noted - dressing not removed) Data Review Labs Laboratory Tests 01/24/22 10:53: Glucometer 389H 01/24/22 13:14: Troponin I < 0.028 01/24/22 16:30: Glucometer 377H 01/24/22 21:39: Glucometer 239H 01/25/22 05:10: White Blood Count 8.2, Red Blood Count 3.70L, Hemoglobin 8.6L, Hematocrit 29L, Mean Corpuscular Volume 78L, Mean Corpuscular Hemoglobin 23L, Mean Corpuscular Hemoglobin Concent 30L, Red Cell Distribution Width 16.9H, Platelet Count 178, Mean Platelet Volume 10.9, Immature Granulocyte % (Auto) 1, Neutrophils (%) (Auto) 59, Lymphocytes (%) (Auto) 26, Monocytes (%) (Auto) 11, Eosinophils (%) (Auto) 3, Basophils (%) (Auto) 1, Neutrophils # (Auto) 4.9, Lymphocytes # (Auto) 2.2, Monocytes # (Auto) 0.9, Eosinophils # (Auto) 0.2, Basophils # (Auto) 0.1, Immature Granulocyte # (Auto) 0.0, Sodium Level 130L, Potassium Level 4.0, Chloride Level 97L, Carbon Dioxide Level 23, Anion Gap 10, Blood Urea Nitrogen 17, Creatinine 1.25, Estimat Glomerular Filtration Rate 42, BUN/Creatinine Ratio 14, Glucose Level 177H, Calcium Level 8.3L, Corrected Calcium 9.2, Total Bilirubin 0.5, Aspartate Amino Transf (AST/SGOT) 28, Alanine Aminotransferase (ALT/SGPT) 20, Alkaline Phosphatase 149H, Total Protein 6.8, Albumin 2.9L 01/25/22 05:33: Glucometer 180H Radiology NAME: VERÓNICA RICHARD [facility] REC#: [id number] PT STATUS: ADM IN : 1935 PHYSICIAN: SUSHIL NÚÑEZ DO ADMIT DATE: 01/24/22/[facility] Signed Date of Exam:01/24/22 CHEST 1 VIEW, AP/PA ONLY CHEST 1 VIEW, AP/PA ONLY Indication: Chest pain. Comparison: 03/02/2021 Findings: Bibasilar heterogeneous opacities have developed. Potential small bilateral pleural effusions. No pneumothorax. Heart remains upper limits of normal in size. Impression: 1. New basilar pulmonary opacities may be on the basis of pulmonary edema. 2. Possible small bilateral pleural effusions. Dictated by: Dictated on workstation # [id number] Dict: 01/24/22 0544 Trans: 01/24/22 0826 LINO [id number] Interpreted by: KAREEM SHEFFIELD MD Electronically signed by: KAREEM SHEFFIELD MD 01/24/22825 ECG Impression ECG Comment A-fib with somewhat slow ventricular response A/P-Cardiology Assessment/Admission Diagnosis Chest discomfort of undetermined etiology - no evidence of ACS Acute on chronic diastolic CHF - Echocardiogram of Apr [address] Zepeda showed LVEF 55-65%. LA mild to mod dilated. Grade 1 diastolic dysfunction. RVSP 22 mmHg H/O CVA - Loop recorder implant done 05/13/[address] Zepeda (cryptogenic CVA) PAF - currently a-fib - OAC with Eliquis Segmentals of 8-5-20 showed normal right-sided TBI and CAROLINA. Mildly abnormal left TBI per Dr. Zepeda HTN - not well controlled HLD DM 2 RLE wound with cellulitis - management per medical services Mild liver enzyme elevation - undetermined etiology - management per medical services Electrolyte abnormality - replace Discussion and Recomendations Episode of chest discomfort of undetermined etiology - no evidence of ACS Acute on chronic diastolic CHF - Echocardiogram today - treat with diuretics Atrial fib - continue OAC for stroke prophylaxis HTN - BP not well controlled - restart Norvasc Hypomag - replace Monitor lab closely Wound to RLE with cellulitis - management per wound care/medical services Further recs will be based on her hospital course We would like to thank Dr. Stephens for this consult Clinical Quality Measures AMI/AHF: ASA po Prior to arrival: Yes GIULIANO BLACKWELL Jan 24, 2022 09:00
[2022-01-24] MEDS: APIXABAN 5 MG (ELIQUIS) TABLET PO SCH ×2 (09:13→21:53)
[2022-01-24] MEDS ORDERED: RT-ALBUTEROL SULF 2.5 MG/3 ML PRE-MIX VIAL INH PRN (09:45)
[2022-01-24] MEDS ORDERED: REGADENOSON 0.4 MG/5 ML SYR (LEXISCAN) IV ONE (10:45)
[2022-01-24] MEDS: morphine INJ 4 MG/ML 1 ML (VIAL/SYRINGE) IV PRN ×2 (10:52→19:29)
[2022-01-24] MEDS: inSUlin ASPART (NovoLOG) 1 UNIT/0.01 ML (CHARGE PER UNIT) SC SCH ×4 (11:03→21:53)
[2022-01-24] MEDS ORDERED: OXYC10TA7 PO (11:51)
[2022-01-24] MEDS ORDERED: OMEP20CA18 PO (11:51)
[2022-01-24] MEDS ORDERED: HYDR30CR71 RC (11:51)
[2022-01-24] MEDS ORDERED: PRAM0.128 PO (11:51)
[2022-01-24] MEDS ORDERED: MTP25TSR PO (11:51)
[2022-01-24] MEDS ORDERED: VNL37.5T PO (11:51)
[2022-01-24] MEDS ORDERED: METF-397 PO (11:51)
[2022-01-24] MEDS ORDERED: GABA300C PO (11:51)
[2022-01-24] MEDS ORDERED: CHOL378P6 PO (11:51)
[2022-01-24] MEDS ORDERED: GABA-490 PO (11:51)
[2022-01-24] MEDS ORDERED: CARB1TAB19 PO (11:51)
[2022-01-24] MEDS ORDERED: MAGN400T39 PO (11:51)
[2022-01-24] MEDS ORDERED: INSU100V16 SQ (11:51)
[2022-01-24] MEDS ORDERED: METH114C4 TP (11:59)
[2022-01-24] MEDS ORDERED: HYPOCHLOROUS ACID/NaCl (VASHE) 250 ML IR SCH (13:15)
--- NOTE | 2022-01-24 13:26 | Wound Care Assessment ---
Wound Care Assessment Date Seen by Provider: Jan 24, 2022 Time Seen by Provider: 13:19 Chief Complaint RLE calf ulcer HPI This pleasant 86 year old lady was admitted to hospital with chest pain and CHF. 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 She states she initially "scratched" this area which opened it up. 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 She does also have h/o venous HTN with ulceration, lymphedema, DM2, anemia, and periperal arterial disease. We did have CAROLINA from 2016 with mild disease on left and moderate disease on right. She will need further evaluation as outpatient of this issue. She does have poorly controlled DM2 on admission but she states at home she is on SSI and she "does not take her insulin as much as she takes it". She does not know when her last A1C was done. She notes that there has been copious drainage in last several days with increasing pain and redness in periwound. They have been dressing just with ga uze. On exam today there is no obvious evidence of bullous pemphigoid. The ulcer has the classic appearance of vascular ulcer (venous or arterial in differential). Past Medical History: Admits Diabetes Type II, Admits Heart Disease, Admits Peripheral Artery Disease h/o bullous pemphigoid, h/o ITP, venous HTN, lymphedema, Anemia, CHF Smoking Status: Never a Smoker Review of Systems Cardiovascular: Chest Pain, Edema Exam Vital Signs Date Time Temp Pulse Resp B/P (MAP) Pulse Ox O2 Delivery O2 Flow Rate FiO2 01/24/22 12:00 37.4 66 16 138/107 (117) 93 01/24/22 08:30 Nasal Cannula 2.00 Capillary Refill : Less Than 3 Seconds General Appearance: no apparent distress, obese HEENT: other (hard of hearing) Neck: full range of motion Respiratory: no respiratory distress, no accessory muscle use Extremities: inflammation, pedal edema, swelling Neurologic/Psychiatric: alert, normal mood/affect, oriented x 3 Skin: warm/dry Skin Problem Location: lower extremities Skin Character: drainage (serosanguinous), erythema (periwound), swelling, tenderness Wound assessment: R. anterior calf ulcer: 2.5x4.8x0.1cm. The epithelialization is none. There is no tunneling or undermining. Drainage is large and serosanguinous. Granulation is none. necrotic is large and slough/eschar. The margins are flat. There is erythema, edema and induration in the periwound. There is hyperpigmentation with shiny skin in periwound Results Laboratory Tests 01/24/22 05:20: Influenza Type A (RT-PCR) Not Detected, Influenza Type B (RT-PCR) Not Detected, SARS-CoV-2 RNA (RT-PCR) Not Detected 01/24/22 05:35: White Blood Count 11.2H, Red Blood Count 4.28, Hemoglobin 9.9L, Hematocrit 35, Mean Corpuscular Volume 81, Mean Corpuscular Hemoglobin 23L, Mean Corpuscular Hemoglobin Concent 29L, Red Cell Distribution Width 17.0H, Platelet Count 205, Mean Platelet Volume 11.0, Immature Granulocyte % (Auto) 1, Neutrophils (%) (Auto) 78H, Lymphocytes (%) (Auto) 11L, Monocytes (%) (Auto) 8, Eosinophils (%) (Auto) 3, Basophils (%) (Auto) 1, Neutrophils # (Auto) 8.7H, Lymphocytes # (Auto) 1.2, Monocytes # (Auto) 0.9, Eosinophils # (Auto) 0.3, Basophils # (Auto) 0.1, Immature Granulocyte # (Auto) 0.1, Prothrombin Time 17.5H, INR Comment 1.4, Activated Partial Thromboplast Time 34, Sodium Level 137, Potassium Level 3.9, Chloride Level 102, Carbon Dioxide Level 23, Anion Gap 12, Blood Urea Nitrogen 14, Creatinine 1.04, Estimat Glomerular Filtration Rate 52, BUN/Creatinine Ratio 13, Glucose Level 248H, Calcium Level 8.5, Corrected Calcium 8.8, Magnesium Level 1.1*L, Total Bilirubin 0.6, Aspartate Amino Transf (AST/SGOT) 49H, Alanine Aminotransferase (ALT/SGPT) 21, Alkaline Phosphatase 222H, Total Creatine Kinase 74, Creatine Kinase MB 2.2, Myoglobin 43.9, Troponin I < 0.028, B-Type Natriuretic Peptide 163.4H, Total Protein 8.2, Albumin 3.6, Amylase Level 12L, Lipase 6L 01/24/22 10:53: Glucometer 389H Assessment/Plan/Dx Assessment: 1. Non-pressure ulcer of right anterior calf (full thickness) 2. DM2-poor control 3. Venous HTN with ulceration RLE 4. H/o PAD RLE 5. Lymphedema 6. Anemia 7. H/o bullous pemphigoid 8. Wound infection Plan: 1. Cleanse daily with Vashe. Thick layer of barrier ointment to periwound. Apply silver alginate hydrofiber to wound bed. Cover with ABD pad, roller gauze and secure with medipore tape. Change daily 2. Defer to PCP. Improved glycemic control recommended 3. Consider compression wraps in outpatient setting if deemed safe from arterial perspective 4. Needs further outpatient evaluation 5. Elevate legs as much as possible 6. Defer to PCP 7. Current ulcer does not have appears of bullous/pemphigoid lesion. Will keep in differential if healing not as expected 8. Wound culture. Will empirically start Doxycycline (grecia. with h/o bullous pemphigoid). JOVI SANTIAGO MD Jan 24, 2022 13:26
--- NOTE | 2022-01-24 16:23 | History & Physical-Hospitalist ---
History of Present Illness HPI/Chief Complaint Calista Fry is an 86 year old female with PMH HTN, HLD, T2DM on insulin, hypothyroidism, AFib on Eliquis, who presented with chest pain. She was awoken from sleep at about 4 am. The pain was in the center of her chest and radiated to her right arm and to her back. She reports sharp pain with deep breaths. The pain is improved on my exam but still present. She denies shortness of breath. She denies nausea and vomiting. She denies diaphoresis. She has chronic lower extremity swelling which is unchanged. She has an ulcer on her right leg that has occured recently. She has been taking her Eliquis as prescribed. Source: patient Exam Limitations: no limitations Date Seen 01/24/22 Time Seen by a Provider: 10:10 Attending Physician Nba Valerio MD PCP Admitting Physician: Tressa Stephens DO Attending Physician: Tressa Stephens DO Referring Physician Date of Admission Jan 24, 2022 at 06:32 Home Medications & Allergies Home Medications Reviewed patient Home Medication Reconciliation performed by pharmacy medication reconciliations trace evidence technician and/or nursing. Patients Allergies have been reviewed. Allergies Allergies Coded Allergies No Known Drug Allergies (Kkggeydj04/17/19) Past Bvcumhs-Zgdkwd-Jyzfva Hx Patient Social History Tobacco Use?: No Smoking Status: Never a Smoker Smokeless Tobacco Frequency: Never a User Use of E-Cig and/or Vaping dev: No Substance use?: No Alcohol Use?: No Pt feels they are or have been: No Immunizations Up To Date Date of Influenza Vaccine: Apr 20, 2011 First/Initial COVID19 Vaccinat: SEPTEMBER Second COVID19 Vaccination Wally: OCTOBER Tetanus Booster (TDap): Unknown Hepatitis A: No Hepatitis B: No PED Vaccines UTD: No Date of Pneumonia Vaccine: Aug 21, 2009 Current Status status: No status: No Advance Directives: Yes Advance Directive Location: Family to bring in copy Communicates: Verbally Primary Language: Senegalese Preferred Spoken Language: Senegalese Is interpretation needed?: No Sensory deficits: Vision impairment Implanted or Applied Medical D: None Past Medical History Surgeries: Abdominal, Appendectomy, Gallbladder, Hysterectomy, Joint Replacement, Orthopedic, Tonsillectomy Atrial Fibrillation, Chronic Edema/Swelling, High Cholesterol, Hypertension Neuropathy Sexually Transmitted Disease: No HIV/AIDS: No Gastroesophageal Reflux, Hiatal Hernia, Irritable Bowel Degenerate Disk Disease, Chronic Back Pain Diabetes, Insulin dep, Hypothyroidsim Cataract Loss of Vision: Denies Hearing Impairment: Denies Anxiety, Depression Blood Disorders: No Family Medical History Cancer 03 MOTHER (STOMACH COLON ESOPHAGEAL) Cancer of colon 03 MOTHER 09 SISTER Family history: Cardiovascular disease 09 SISTER (HAS PACEMAKER) Family history: Diabetes mellitus 03 FATHER Myocardial infarction 03 FATHER No Family History of: Abdominal aortic aneurysm Bryan's disease Alcoholism Aphasia Cataract Chest pain Congenital heart disease Congestive heart failure Cystic fibrosis Dementia Dysphagia Family history: Allergy Family history: Alzheimer's disease Family history: Arthritis Family history: Asthma Family history: Coronary thrombosis Family history: Gastrointestinal disease Family history: Glaucoma Family history: Hypertension Family history: Osteoporosis Family history: Thyroid disorder Headache Hearing loss Heart disease Hereditary disease History of - anemia History of - respiratory disease History of drug abuse Human immunodeficiency virus (HIV) seropositivity Hypercholesterolemia Infertile Kidney disease Malignant neoplasm of lung Parkinson's disease Prostate cancer Psychotic disorder Seizure disorder Stroke Tuberculosis Visual impairment No Pertinent Family Hx Review of Systems Constitutional: no symptoms reported EENTM: no symptoms reported Respiratory: no symptoms reported Cardiovascular: chest pain Gastrointestinal: no symptoms reported Genitourinary: no symptoms reported Musculoskeletal: no symptoms reported Skin: no symptoms reported Psychiatric/Neurological: No Symptoms Reported Physical Exam Physical Exam Vital Signs Vital Signs - First Documented 01/24/22 01/24/22 05:24 06:16 Temp 36.4 Pulse 67 Resp 22 B/P (MAP) 153/113 (126) Pulse Ox 92 O2 Delivery Room Air O2 Flow Rate 2.00 Capillary Refill : Less Than 3 Seconds Height, Weight, BMI Height: 5'2.00" Weight: 224lbs. 0.9oz. 101.805844gm; 39.06 BMI Method:Stated General Appearance: No Apparent Distress, Obese HEENT: PERRL/EOMI, Pharynx Normal Neck: Normal Inspection, Supple Respiratory: Chest Non Tender, Lungs Clear, Normal Breath Sounds, No Respiratory Distress Cardiovascular: Regular Rate, Rhythm, No Murmur Gastrointestinal: Normal Bowel Sounds, Non Tender, Soft Extremity: Non Tender, Pedal Edema, Swelling, Other (right lateral leg ulcer with bandage in place) Neurologic/Psychiatric: Alert, Normal Mood/Affect Skin: Warm/Dry, Other (right leg ulcer) Results Results/Procedures Labs Laboratory Tests 01/24/22 05:35 Patient resulted labs reviewed. Imaging: Reviewed Imaging Report Assessment/Plan Admission Diagnosis Chest pain Admission Status: Inpatient Order (span 2 midnights) Reason for Inpatient Admission: Heart failure Assessment and Plan Chest pain Troponin normal EKG unremarkable Repeat troponin Cardiology consulted Planning for stress test tomorrow Wells Score 0, low risk for PE, already on Eliquis Acute on chronic heart failure with preserved ejection fraction CXR with bibasilar opacities, probably pulmonary edema IV Lasix Not requiring supplemental oxygen Cellulitis Wound care consulted Started on Doxycycline Wound care per recommendations T2DM with hyperglycemia Levemir Novolog with meals Sliding scale insulin HTN HLD Hypothyroidism AFib Continue home meds Diagnosis/Problems Diagnosis/Problems (1) Chest pain (2) CHF (congestive heart failure) Status: Acute (3) Cellulitis of right lower extremity without foot Status: Acute (4) IDDM (insulin dependent diabetes mellitus) Status: Acute (5) HTN (hypertension) Status: Chronic (6) Paroxysmal atrial fibrillation Status: Chronic (7) Obesity Status: Chronic Clinical Quality Measures AMI/AHF: ASA po Prior to arrival: Yes CHOLO HUANG MD Jan 24, 2022 16:23
[2022-01-24] MEDS: DOXYCYCLINE 100 MG (VIBRAMYCIN) TABLET PO SCH (16:48)
[2022-01-24] MEDS: FUROSEMIDE 40 MG/4 ML INJ (LASIX) IVP SCH (16:48)
[2022-01-24] MEDS ORDERED: amLODIPine 10 MG (NORVASC) TAB PO NR (17:00)
--- NOTE | 2022-01-24 17:12 | Consultation-Cardiology ---
HPI-Cardiology Cardiology Consultation: Date of Consultation 01/24/22 Time Seen by a Provider: 10:15 Date of Admission Attending Physician Nba Salas MD Admitting Physician Admitting Physician: Tressa Stephens DO Attending Physician: Tressa Stephens DO Consulting Physician SANTOS SHELBY MD, MA, FACP, FACC, [facility] [place], CCDS HPI: Chief Complaint: Chest pain Ms. Fry is an 86 yr old female admitted to 508 from the ED. She resides at [facility]. She states she woke up early this morning with sharp stabbing chest pain which radiated through to her back. She reports the pain was worse with inspiration. She reports she felt SOB d/t not being able to take a deep breath because of the sharp pain. She denies any palpitations, syncope or near syncope. She reports the discomfort has improved, and she is left with a "soreness" in her chest like a muscle ache. She has chronic bilat LE swelling, which she feels is unchanged in the recent past. She has a wound to her RLE which her PCP has been managing. She denies any n/v. She report she has chronic diarrhea. No c/o fever or chills. Review of Systems-Cardiology Review of Systems Constitutional: No chills, No fever, No malaise Eyes: No vision change Ears/Nose/Throat: No epistaxis, No recent hearing loss Respiratory: As described under HPI Cardiovascular: As described under HPI Gastrointestinal: As described under HPI Genitourinary: No dysuria, No hematuria Musculoskeletal: joint pain (chronic) Skin: As described under HPI Psychiatric/Neurological: No anxiety, No depression, No seizure, No focal weakness, No syncope Hematologic: No bleeding abnormalities [facility] Hx Patient Social History Smoking Status: Never a Smoker 2nd Hand Smoke Exposure: No ( smoked but quit many years ago) Have you traveled recently?: No Alcohol Use?: No Pt feels they are or have been: No Immunizations Up To Date Tetanus Booster (TDap): Unknown Date of Pneumonia Vaccine: Aug 21, 2009 Date of Influenza Vaccine: Apr 20, 2011 Past Medical History PMH As described under Assessment. Family Medical History Family Medical History: She reports he father had CAD. She reports she has a sister with a pacemaker. Family History: Cancer 03 MOTHER (STOMACH COLON ESOPHAGEAL) Cancer of colon 03 MOTHER 09 SISTER Family history: Cardiovascular disease 09 SISTER (HAS PACEMAKER) Family history: Diabetes mellitus 03 FATHER Myocardial infarction 03 FATHER No Family History of: Abdominal aortic aneurysm Bryan's disease Alcoholism Aphasia Cataract Chest pain Congenital heart disease Congestive heart failure Cystic fibrosis Dementia Dysphagia Family history: Allergy Family history: Alzheimer's disease Family history: Arthritis Family history: Asthma Family history: Coronary thrombosis Family history: Gastrointestinal disease Family history: Glaucoma Family history: Hypertension Family history: Osteoporosis Family history: Thyroid disorder Headache Hearing loss Heart disease Hereditary disease History of - anemia History of - respiratory disease History of drug abuse Human immunodeficiency virus (HIV) seropositivity Hypercholesterolemia Infertile Kidney disease Malignant neoplasm of lung Parkinson's disease Prostate cancer Psychotic disorder Seizure disorder Stroke Tuberculosis Visual impairment Allergies and Home Medications Allergies Coded Allergies: No Known Drug Allergies (Verified , 05/06/19) Patient Home Medication List Home Medication List Reviewed: Yes Amlodipine Besylate (Amlodipine Besylate) 10 Mg Tablet, 10 MG PO DAILY, (Reported) Entered as Reported by: ABBY VAZQUEZ on 11/16/15 2847 Last Action: Reviewed Apixaban (Eliquis) 5 Mg Tablet, 5 MG PO BID, (Reported) Entered as Reported by: KEITH ROBLEDO on 03/02/211453 Last Action: Reviewed Atorvastatin Calcium (Atorvastatin Calcium) 80 Mg Tablet, 80 MG PO HS, (Reported) Entered as Reported by: KEITH ROBLEDO on 03/02/211453 Last Action: Reviewed Carbidopa/Levodopa (Carbidopa-Levodopa 25-100 Tab) 25 Mg-100 Mg Tablet, 1 EA PO BID, (Reported) Entered as Reported by: DIANA RASHID on 01/24/221150 Last Action: Reviewed Cholestyramine (with Sugar) (Cholestyramine Powder) 4 Gram Powder, 4 GM PO 0900, (Reported) Entered as Reported by: DIANA RASHID on 01/24/221150 Last Action: Reviewed Gabapentin (Neurontin) 300 Mg Capsule, 300 MG PO BID, (Reported) Entered as Reported by: DIANA RASHID on 01/24/221150 Last Action: Reviewed Gabapentin (Gabapentin) 400 Mg Capsule, 400 MG PO 1200, (Reported) Entered as Reported by: DIANA RASHID on 01/24/221150 Last Action: Reviewed Hydrocortisone (Anusol-Hc) 2.5 % Cream..g., 1 APPLIC RC TID PRN for ITCHING, (Reported) Entered as Reported by: DIANA RASHID on 01/24/221150 Last Action: Reviewed Hydroxyzine HCl (Hydroxyzine HCl) 25 Mg Tablet, 25 MG PO Q8H PRN for ANXIETY, (Reported) Entered as Reported by: KEITH ROBLEDO on 03/02/211453 Last Action: Reviewed Insulin Aspart (Novolog Flexpen) 100 Unit/Ml (3 Ml) Solution, 12 UNITS SQ BID W/MEALS, (Reported) Entered as Reported by: KEITH ROBLEDO on 03/02/211453 Last Action: Reviewed Insulin Aspart (Novolog) 100 Unit/Ml Susp, 15 UNIT SQ 1130 W/ LUNCH, (Reported) Entered as Reported by: DIANA RASHID on 01/24/221150 Last Action: Reviewed Insulin Detemir (Levemir Flextouch) 100 Unit/Ml (3 Ml) Insuln.pen, 25 UNITS SQ HS, (Reported) Entered as Reported by: KEITH ROBLEDO on 03/02/211453 Last Action: Reviewed Levothyroxine Sodium (Synthroid) 75 Mcg Tablet, 75 MCG PO DAILY, (Reported) Entered as Reported by: KEITH ROBLEDO on 03/02/211453 Last Action: Reviewed Magnesium Oxide (Magnesium) 400 Mg Magnesium Tablet, 400 MG PO DAILY, (Reported) Entered as Reported by: DIANA RASHID on 01/24/221150 Last Action: Reviewed Metformin HCl (Metformin HCl) 500 Mg Tablet, 500 MG PO BID, (Reported) Entered as Reported by: DIANA RASHID on 01/24/221150 Last Action: Reviewed Methyl Salicylate/Menth/Camph (Muscle Rub Ultra Str Cream) 30 %-10 %-4 % Cream..g., 1 APPLIC TP TID PRN for PAIN-BREAKTHROUGH, (Reported) Entered as Reported by: DIANA RASHID on 01/24/221158 Last Action: Reviewed Metoprolol Succinate (Metoprolol Succinate) 25 Mg Tab.er.24h, 25 MG PO DAILY, (Reported) Entered as Reported by: DIANA RASHID on 01/24/221150 Last Action: Reviewed Omeprazole (Omeprazole) 20 Mg Capsule.dr, 20 MG PO DAILY, (Reported) Entered as Reported by: DIANA RASHID on 01/24/221150 Last Action: Reviewed Oxycodone HCl (Oxycodone HCl) 10 Mg Tablet, 10 MG PO Q8H PRN for PAIN-SEVERE (8- 10), (Reported) Entered as Reported by: DIANA RASHID on 01/24/221150 Last Action: Reviewed Pramipexole Di-HCl (Pramipexole Dihydrochloride) 0.125 Mg Tablet, 0.125 MG PO 1700, (Reported) Entered as Reported by: DIANA RASHID on 01/24/221150 Last Action: Reviewed Tolterodine Tartrate (Tolterodine Tartrate ER) 4 Mg Cap.er.24h, 4 MG PO DAILY, (Reported) Entered as Reported by: ABBY VAZQUEZ on 11/16/151716 Last Action: Reviewed Venlafaxine HCl (Venlafaxine HCl) 37.5 Mg Tab, 37.5 MG PO DAILY, (Reported) Entered as Reported by: DIANA RASHID on 01/24/221150 Last Action: Reviewed Discontinued Medications Calcium Carbonate/Vitamin D3 (Calcium + Vitamin D Tablet) 1 Each Tablet, 1 EACH PO DAILY, (Reported) Discontinued Reason: No Longer Taking Entered as Reported by: KEITH ROBLEDO on 03/02/21 4045 Last Action: Discontinued Esomeprazole Magnesium (Esomeprazole Magnesium) 40 Mg Capsule.dr, 40 MG PO DAILY, (Reported) Discontinued Reason: No Longer Taking Entered as Reported by: ABBY VAZQUEZ on 11/16/151716 Last Action: Discontinued Fentanyl (Fentanyl Patch 25 MCG) 1 Each Patch.td72, 25 MCG TD Q72H Discontinued Reason: No Longer Taking Prescribed by: NBA SALAS on 03/06/21 124 Last Action: Discontinued Gabapentin (Neurontin) 300 Mg Capsule, 900 MG PO HS, (Reported) Discontinued Reason: No Longer Taking Entered as Reported by: KEITH ROBLEDO on 03/02/211453 Last Action: Discontinued Losartan Potassium (Losartan Potassium) 50 Mg Tablet, 50 MG PO DAILY Discontinued Reason: No Longer Taking Prescribed by: NBA SALAS on 03/06/21 1243 Last Action: Discontinued Metoprolol Tartrate (Metoprolol Tartrate) 25 Mg Tablet, 12.5 MG PO DAILY, (Reported) Discontinued Reason: No Longer Taking Entered as Reported by: KEITH ROBLEDO on 03/02/211453 Last Action: Discontinued Multivitamin (Multivitamin) 1 Each Tablet, 1 EACH PO DAILY, (Reported) Discontinued Reason: No Longer Taking Entered as Reported by: KEITH ROBLEDO on 03/02/211456 Last Action: Discontinued Oxycodone HCl (Oxycodone HCl) 10 Mg Tablet, 10 MG PO BID PRN for PAIN-SEVERE Discontinued Reason: No Longer Taking Prescribed by: NBA SALAS on 03/06/21 1243 Last Action: Discontinued Venlafaxine HCl (Venlafaxine HCl ER) 37.5 Mg Cap.er.24h, 37.5 MG PO DAILY, (Reported) Discontinued Reason: No Longer Taking Entered as Reported by: KEITH ROBLEDO on 03/02/211453 Last Action: Discontinued Physical Exam-Cardiology Physical Exam Vital Signs/I&O 01/24/22 01/24/22 01/24/22 01/24/22 05:24 06:16 06:56 07:00 Temp 36.4 Pulse 67 73 75 Resp 17 21 B/P (MAP) 153/113 (126) 175/57 141/107 (131) Pulse Ox 92 98 99 O2 Delivery Room Air Nasal Cannula Nasal Cannula O2 Flow Rate 2.00 2.00 01/24/22 01/24/22 01/24/22 01/24/22 07:00 07:00 07:11 07:15 Temp 36.0 Pulse 71 68 67 Resp 13 11 26 B/P (MAP) 126/88 (115) 171/75 (89) Pulse Ox 99 99 99 O2 Delivery Nasal Cannula Nasal Cannula Nasal Cannula O2 Flow Rate 2.00 2.00 2.00 01/24/22 01/24/22 01/24/22 01/24/22 07:26 07:30 07:40 07:41 Pulse 61 60 73 71 Resp 23 21 13 18 B/P (MAP) 171/75 (97) 186/92 (102) Pulse Ox 95 95 99 99 O2 Delivery Nasal Cannula Nasal Cannula Nasal Cannula Nasal Cannula O2 Flow Rate 2.00 2.00 2.00 2.00 01/24/22 01/24/22 01/24/22 01/24/22 07:45 07:56 08:00 08:00 Pulse 65 74 Resp 18 16 B/P (MAP) 177/73 (106) 180/78 (105) Pulse Ox 98 95 O2 Delivery Nasal Cannula Nasal Cannula Nasal Cannula O2 Flow Rate 2.00 2.00 2.00 01/24/22 01/24/22 01/24/22 01/24/22 08:11 08:15 08:30 09:33 Temp 36.0 Pulse 66 66 64 64 Resp 20 19 15 B/P (MAP) 166/76 (109) 161/75 (106) Pulse Ox 99 100 99 99 O2 Delivery Nasal Cannula Nasal Cannula Nasal Cannula O2 Flow Rate 2.00 2.00 2.00 01/24/22 01/24/22 01/24/22 01/24/22 12:00 12:00 13:31 16:00 Temp 37.4 Pulse 66 80 Resp 16 B/P (MAP) 138/107 (117) Pulse Ox 93 O2 Delivery Room Air Room Air Capillary Refill : Less Than 3 Seconds Constitutional: AAO x 3, well-developed, well-nourished HEENT: PERRL, hearing is well preserved, oral hygience is good Neck: No carotid bruit; carotid pulses are 2 + bilaterally Respiratory: No accessory muscle use, No respiratory distress; chest expansion is symmetric, chest is bilaterally symmetric, other (diminished bases bilat) Cardiovascular: irregularly irregular; No JVD; S1 and S2 Gastrointestinal: No tender; soft, round, audible bowel sounds Extremities: other (mild LE swelling; R>L) Neurologic/Psychiatric: grossly intact (moves all extremities) Skin: other (RLE with redness, swelling and dressing with serous drainage noted - dressing not removed) Data Review Labs Laboratory Tests 01/24/22 05:20: Influenza Type A (RT-PCR) Not Detected, Influenza Type B (RT-PCR) Not Detected, SARS-CoV-2 RNA (RT-PCR) Not Detected 01/24/22 05:35: White Blood Count 11.2H, Red Blood Count 4.28, Hemoglobin 9.9L, Hematocrit 35, Mean Corpuscular Volume 81, Mean Corpuscular Hemoglobin 23L, Mean Corpuscular Hemoglobin Concent 29L, Red Cell Distribution Width 17.0H, Platelet Count 205, Mean Platelet Volume 11.0, Immature Granulocyte % (Auto) 1, Neutrophils (%) (Auto) 78H, Lymphocytes (%) (Auto) 11L, Monocytes (%) (Auto) 8, Eosinophils (%) (Auto) 3, Basophils (%) (Auto) 1, Neutrophils # (Auto) 8.7H, Lymphocytes # (Auto) 1.2, Monocytes # (Auto) 0.9, Eosinophils # (Auto) 0.3, Basophils # (Auto) 0.1, Immature Granulocyte # (Auto) 0.1, Prothrombin Time 17.5H, INR Comment 1.4, Activated Partial Thromboplast Time 34, Sodium Level 137, Potassium Level 3.9, Chloride Level 102, Carbon Dioxide Level 23, Anion Gap 12, Blood Urea Nitrogen 14, Creatinine 1.04, Estimat Glomerular Filtration Rate 52, BUN/Creatinine Ratio 13, Glucose Level 248H, Calcium Level 8.5, Corrected Calcium 8.8, Magnesium Level 1.1*L, Total Bilirubin 0.6, Aspartate Amino Transf (AST/SGOT) 49H, Alanine Aminotransferase (ALT/SGPT) 21, Alkaline Phosphatase 222H, Total Creatine Kinase 74, Creatine Kinase MB 2.2, Myoglobin 43.9, Troponin I < 0.028, B-Type Natriuretic Peptide 163.4H, Total Protein 8.2, Albumin 3.6, Amylase Level 12L, Lipase 6L 01/24/22 10:53: Glucometer 389H 01/24/22 13:14: Troponin I < 0.028 01/24/22 16:30: Glucometer 377H A/P-Cardiology Assessment/Admission Diagnosis Chest discomfort of undetermined etiology - no evidence of ACS Acute on chronic diastolic CHF - Echocardiogram of Apr [address] Zepeda showed LVEF 55-65%. LA mild to mod dilated. Grade 1 diastolic dysfunction. RVSP 22 mmHg H/O CVA - Loop recorder implant done 05/13/[address] Zepeda (cryptogenic CVA) PAF - currently a-fib - OAC with Eliquis Segmentals of 8-5-20 showed normal right-sided TBI and [place]. Mildly abnormal left TBI per Dr. Zepeda HTN - not well controlled HLD DM 2 RLE wound with cellulitis - management per medical services Mild liver enzyme elevation - undetermined etiology - management per medical services Electrolyte abnormality - replace Discussion and Recomendations Episode of chest discomfort of undetermined etiology - no evidence of ACS Acute on chronic diastolic CHF - Echocardiogram today - treat with diuretics Atrial fib - continue OAC for stroke prophylaxis HTN - BP not well controlled - restart Norvasc Hypomag - replace Monitor lab closely Wound to RLE with cellulitis - management per wound care/medical services Further recs will be based on her hospital course We would like to thank Dr. Stephens for this consult Clinical Quality Measures AMI/AHF: ASA po Prior to arrival: Yes SANTOS SHELBY MD FACP FACC CCDS Jan 24, 2022 17:12
[2022-01-24] MEDS: RT-ALBUTEROL SULF 2.5 MG/3 ML PRE-MIX VIAL INH SCH (20:15)
[2022-01-24] MEDS: GABAPENTIN 300 MG (NEURONTIN) CAP PO SCH (21:53)
[2022-01-25 03:26] VITALS: BP 110/63
[2022-01-25] MEDS: inSUlin ASPART (NovoLOG) 1 UNIT/0.01 ML (CHARGE PER UNIT) SC SCH ×4 (05:34→12:06)
[2022-01-25 05:35] LABS: BASOPHILS # (AUTO) 0.1 10^3/uL (0.0-0.1); BASOPHILS % (AUTO) 1 % (0-10); EOSINOPHILS # (AUTO) 0.2 10^3/uL (0.0-0.3); EOSINOPHILS % (AUTO) 3 % (0-10); HEMATOCRIT 29 % (35-52); HEMOGLOBIN 8.6 g/dL (11.5-16.0); LYMPHOCYTES # (AUTO) 2.2 10^3/uL (1.0-4.0); LYMPHOCYTES % (AUTO) 26 % (12-44); MEAN CORPUSCULAR HEMOGLOBIN 23 pg (25-34); MEAN CORPUSCULAR HGB CONC 30 g/dL (32-36); MEAN CORPUSCULAR VOLUME 78 fL (80-99); MEAN PLATELET VOLUME 10.9 fL (9.0-12.2); MONOCYTES # (AUTO) 0.9 10^3/uL (0.0-1.0); MONOCYTES % (AUTO) 11 % (0-12); NEUTROPHILS # (AUTO) 4.9 10^3/uL (1.8-7.8); NEUTROPHILS % (AUTO) 59 % (42-75); PLATELET COUNT 178 10^3/uL (130-400); WHITE BLOOD COUNT 8.2 10^3/uL (4.3-11.0)
[2022-01-25 05:47] LABS: ALBUMIN 2.9 GM/DL (3.2-4.5)
[2022-01-25 05:48] LABS: CALCIUM 8.3 MG/DL (8.5-10.1)
[2022-01-25 05:50] LABS: TOTAL PROTEIN 6.8 GM/DL (6.4-8.2)
[2022-01-25 05:51] LABS: BILIRUBIN,TOTAL 0.5 MG/DL (0.1-1.0)
[2022-01-25 05:53] LABS: CREATININE SERUM 1.25 MG/DL (0.60-1.30)
[2022-01-25] MEDS: FUROSEMIDE 40 MG/4 ML INJ (LASIX) IVP SCH (06:31)
[2022-01-25] MEDS: DOXYCYCLINE 100 MG (VIBRAMYCIN) TABLET PO SCH (06:31)
[2022-01-25 08:00] VITALS: BP 141/65
[2022-01-25] MEDS: RT-ALBUTEROL SULF 2.5 MG/3 ML PRE-MIX VIAL INH SCH (08:17)
[2022-01-25] MEDS ORDERED: CATHETER FLUSH 10 ML SYR IVP PRN (08:30)
[2022-01-25] MEDS: APIXABAN 5 MG (ELIQUIS) TABLET PO SCH (08:34)
[2022-01-25] MEDS: GABAPENTIN 300 MG (NEURONTIN) CAP PO SCH (08:34)
[2022-01-25] MEDS: DOCUSATE SODIUM 100 MG (COLACE) CAP PO SCH (08:34)
[2022-01-25] MEDS: SENNOSIDES 8.6 MG (SENOKOT) TAB PO SCH (08:35)
[2022-01-25] MEDS ORDERED: amLODIPine 10 MG (NORVASC) TAB PO SCH (09:00)
[2022-01-25] MEDS ORDERED: REGADENOSON 0.4 MG/5 ML SYR (LEXISCAN) IV ONE (09:12)
--- NOTE | 2022-01-25 10:34 | Progress Note - Cardiology ---
Cardiology SOAP Progress Note Subjective: No further c/o CP No c/o SOB - overall she is feeling better today Objective: I&O/Vital Signs 01/24/22 01/25/22 01/25/22 01/25/22 23:41 01:00 03:26 07:00 Temp 36.5 36.7 Pulse 66 60 54 44 Resp 18 16 B/P (MAP) 119/67 (84) 110/63 (79) Pulse Ox 93 94 O2 Delivery Room Air Room Air 01/25/22 01/25/22 08:00 08:17 Temp 36.7 Pulse 74 Resp 20 B/P (MAP) 141/65 (90) Pulse Ox 97 94 O2 Delivery Room Air Room Air 01/25/22 00:00 Intake Total 1040 ml Output Total 725 ml Balance 315 ml Weight (Pounds): 224 Weight (Ounces): 0.9 Weight (Calculated Kilograms): 101.530777 Constitutional: AAO x 3, well-developed, well-nourished Respiratory: No accessory muscle use, No respiratory distress; chest expansion is symmetric, chest is bilaterally symmetric, other (diminished bases bilat) Cardiovascular: irregularly irregular; No JVD; S1 and S2 Gastrointestional: No tender; soft, round, audible bowel sounds Extremities: other (mild LE swelling; R>L) Neurologic/Psychiatric: grossly intact (moves all extremities) Skin: other (RLE with redness, swelling and dressing with serous drainage noted - dressing not removed) Results/Procedures: Labs Laboratory Tests 01/24/22 10:53: Glucometer 389H 01/24/22 13:14: Troponin I < 0.028 01/24/22 16:30: Glucometer 377H 01/24/22 21:39: Glucometer 239H 01/25/22 05:10: White Blood Count 8.2, Red Blood Count 3.70L, Hemoglobin 8.6L, Hematocrit 29L, Mean Corpuscular Volume 78L, Mean Corpuscular Hemoglobin 23L, Mean Corpuscular Hemoglobin Concent 30L, Red Cell Distribution Width 16.9H, Platelet Count 178, Mean Platelet Volume 10.9, Immature Granulocyte % (Auto) 1, Neutrophils (%) (Auto) 59, Lymphocytes (%) (Auto) 26, Monocytes (%) (Auto) 11, Eosinophils (%) (Auto) 3, Basophils (%) (Auto) 1, Neutrophils # (Auto) 4.9, Lymphocytes # (Auto) 2.2, Monocytes # (Auto) 0.9, Eosinophils # (Auto) 0.2, Basophils # (Auto) 0.1, Immature Granulocyte # (Auto) 0.0, Sodium Level 130L, Potassium Level 4.0, Chloride Level 97L, Carbon Dioxide Level 23, Anion Gap 10, Blood Urea Nitrogen 17, Creatinine 1.25, Estimat Glomerular Filtration Rate 42, BUN/Creatinine Ratio 14, Glucose Level 177H, Calcium Level 8.3L, Corrected Calcium 9.2, Total Bilirubin 0.5, Aspartate Amino Transf (AST/SGOT) 28, Alanine Aminotransferase (ALT/SGPT) 20, Alkaline Phosphatase 149H, Total Protein 6.8, Albumin 2.9L 01/25/22 05:33: Glucometer 180H Laboratory Tests 01/24/22 05:35 01/25/22 05:10 A/P: Assessment: Chest discomfort of undetermined etiology - no evidence of ACS Acute on chronic diastolic CHF - Echocardiogram of 01-24-22 showed LVEF 55-60%. Grade 1 diastolic dysfunction. H/O CVA - Loop recorder implant done 05/13/[address] Zepeda (cryptogenic CVA) PAF - currently a-fib - OAC with Eliquis Segmentals of 8-5-20 showed normal right-sided TBI and [place]. Mildly abnormal left TBI per Dr. Zepeda HTN - not well controlled HLD DM 2 RLE wound with cellulitis - management per medical services Mild liver enzyme elevation - undetermined etiology - management per medical services Electrolyte abnormality - replace Plan: Episode of chest discomfort of undetermined etiology - no further c/o - no evidence of ACS Acute on chronic diastolic CHF - clinically improved - reduce diuretics Atrial fib - continue OAC for stroke prophylaxis HTN - BP improved - continue current regimen Hypomag - replaced - lab results pending Monitor lab closely Wound to RLE with cellulitis - management per wound care/medical services Clinical Quality Measures AMI/AHF: ASA po Prior to arrival: Yes GIULIANO BLACKWELL Jan 25, 2022 10:34
[2022-01-25 12:00] VITALS: BP 157/65
[2022-01-25] MEDS ORDERED: GABAPENTIN 400 MG (NEURONTIN) CAP PO SCH (12:00)
[2022-01-25] MEDS ORDERED: POTA10CA43 PO (13:23)
[2022-01-25] MEDS ORDERED: FURO-125 PO (13:23)
[2022-01-25] MEDS ORDERED: FUROSEMIDE 20 MG (LASIX) TAB PO SCH (13:30)
--- NOTE | 2022-01-25 14:01 | Progress Note - Cardiology ---
Cardiology SOAP Progress Note Subjective: No cp or shortness of breath or palp or syncope Gen weakness and malaise present, chronic No n/v/d Objective: I&O/Vital Signs 01/25/22 01/25/22 01/25/22 01/25/22 03:26 07:00 08:00 08:00 Temp 36.7 36.7 Pulse 54 44 74 Resp 16 20 B/P (MAP) 110/63 (79) 141/65 (90) Pulse Ox 94 97 O2 Delivery Room Air Room Air Room Air 01/25/22 01/25/22 01/25/22 01/25/22 08:17 12:00 12:00 12:46 Temp 36.9 36.9 Pulse 43 43 48 Resp 16 16 B/P (MAP) 157/65 (95) 157/65 (95) Pulse Ox 94 95 95 O2 Delivery Room Air Room Air Room Air 01/24/22 23:59 Intake Total 1040 ml Output Total 725 ml Balance 315 ml Weight (Pounds): 224 Weight (Ounces): 0.9 Weight (Calculated Kilograms): 101.095691 Constitutional: AAO x 3, well-developed, well-nourished Respiratory: No accessory muscle use, No respiratory distress; chest expansion is symmetric, chest is bilaterally symmetric, other (diminished bases bilat) Cardiovascular: irregularly irregular; No JVD; S1 and S2 Gastrointestional: No tender; soft, round, audible bowel sounds Extremities: other (mild LE swelling R>L; R leg under dressing) Neurologic/Psychiatric: grossly intact (moves all extremities) Skin: other (RLE with redness, swelling and dressing with serous drainage noted - dressing not removed) Results/Procedures: Labs Laboratory Tests 01/24/22 16:30: Glucometer 377H 01/24/22 21:39: Glucometer 239H 01/25/22 05:10: White Blood Count 8.2, Red Blood Count 3.70L, Hemoglobin 8.6L, Hematocrit 29L, Mean Corpuscular Volume 78L, Mean Corpuscular Hemoglobin 23L, Mean Corpuscular Hemoglobin Concent 30L, Red Cell Distribution Width 16.9H, Platelet Count 178, Mean Platelet Volume 10.9, Immature Granulocyte % (Auto) 1, Neutrophils (%) (Auto) 59, Lymphocytes (%) (Auto) 26, Monocytes (%) (Auto) 11, Eosinophils (%) (Auto) 3, Basophils (%) (Auto) 1, Neutrophils # (Auto) 4.9, Lymphocytes # (Auto) 2.2, Monocytes # (Auto) 0.9, Eosinophils # (Auto) 0.2, Basophils # (Auto) 0.1, Immature Granulocyte # (Auto) 0.0, Sodium Level 130L, Potassium Level 4.0, Chloride Level 97L, Carbon Dioxide Level 23, Anion Gap 10, Blood Urea Nitrogen 17, Creatinine 1.25, Estimat Glomerular Filtration Rate 42, BUN/Creatinine Ratio 14, Glucose Level 177H, Calcium Level 8.3L, Corrected Calcium 9.2, Magnesium Level 1.9, Total Bilirubin 0.5, Aspartate Amino Transf (AST/SGOT) 28, Alanine Aminotransferase (ALT/SGPT) 20, Alkaline Phosphatase 149H, Total Protein 6.8, Albumin 2.9L 01/25/22 05:33: Glucometer 180H 01/25/22 11:58: Glucometer 170H A/P: Assessment: Chest discomfort of undetermined etiology - no evidence of ACS - MPI of 01/25/22: no ischemia or infarction, normal LVEF Anemia of undetermined etiology - managed by the Hospitalist service Acute on chronic diastolic CHF - Echo of 01-24-22 showed LVEF 55-60%. Grade 1 diastolic dysfunction - clinically compensated Wound to RLE with cellulitis - management per Wound Care and the Hospitalist Svce H/O CVA - Loop recorder implant done 05/13/[address] Zepeda (cryptogenic CVA) PAF - currently a-fib - OAC with Eliquis - asymptomatic bradycardial on 01/25/22 Segmentals of 02-23-20 showed normal right-sided TBI and [place]. Mildly abnormal left TBI per Dr. Zepeda HTN - improved after adding amlodipine HLD DM 2 RLE wound with cellulitis - management per medical services Mild liver enzyme elevation - undetermined etiology - management per medical services Hypomagnesemia - corrected Plan: * Continue amlodipine for hypertension * Continue diuretic but lower the dose to furosemide 20 qod and K 10 qod * Hosp svce (Dr Dimas) managing patient's microcytic hypochromic anemia. Continue OAC for stroke prophylaxis if ok with the Hospitalist svce * Ok for d/c from cardiac standpoint. Discussed with pt and her daughter. Close outpt f/u advised. Outpt lab f/u also advised. Questions answered Clinical Quality Measures AMI/AHF: ASA po Prior to arrival: Yes SANTOS SHELBY MD FACP [facility] CCDS Jan 25, 2022 14:01
[2022-01-25 15:30] VITALS: BP 157/65
--- NOTE | 2022-01-25 15:58 | STRESS TEST ---
DATE OF SERVICE: 01/25/2022 RESTING AND POST REGADENOSON TECHNETIUM-99M TETROFOSMIN SPECT CT IMAGING ORDERING PHYSICIAN: Lizzie Mederos APRN ATTENDING PHYSICIAN: Dr. Stephens. PRIMARY PHYSICIAN: Dr. Nba Valerio. CLINICAL DIAGNOSIS: Chest discomfort. Baseline images were carried out after injection of 9.92 mCi of technetium-99m Tetrofosmin. This was followed by 0.4 mg regadenoson and 27.5 mCi of technetium-99m Tetrofosmin for stress imaging. The electrocardiogram showed atrial fibrillation with a controlled ventricular response. The electrocardiogram did not change significantly with regadenoson infusion. The patient tolerated the procedure well. Review of images at rest and following stress does not indicate any distinct perfusion defects consistent with myocardial ischemia or infarction. Gated images show normal global left ventricular systolic function with normal regional wall motion. Left ventricular ejection fraction is calculated to be 74%. Left ventricular end-diastolic volume is 81 mL. TID is absent (0.96). CONCLUSIONS: 1. No evidence of any significant myocardial ischemia or infarction on this study. 2. Normal regional wall motion. 3. Normal global left ventricular systolic function with a calculated ejection fraction of 74%. Job ID: [id number] DocumentID: [id number] Dictated Date: 01/25/2022 12:43:09 Strain Technician Date: 01/25/2022 15:58:12 Dictated By: SANTOS SHELBY MD, MA, FACP, FACC,
[2022-01-25] MEDS ORDERED: DOXY100T2 PO (16:40)
--- NOTE | 2022-01-25 19:34 | Discharge Summary ---
Discharge Summary Hospital Course Problems/Dx: (1) Chest pain (2) CHF (congestive heart failure) Status: Acute (3) Cellulitis of right lower extremity without foot Status: Acute (4) IDDM (insulin dependent diabetes mellitus) Status: Acute (5) HTN (hypertension) Status: Chronic (6) Paroxysmal atrial fibrillation Status: Chronic (7) Obesity Status: Chronic Hospital Course Date of Admission: Jan 24, 2022 at 06:32 Admission Diagnosis : Chest pain Family Physician/Provider: Nba Salas MD Date of Discharge: 01/25/22 Discharge Diagnosis: Chest pain, GERD, acute on chronic HFpEF, cellulitis Hospital Course: Calista Fry is an 86 year old female who was admitted [facility] chest pain. Cardiology was consulted and assisted with her care. Her troponin remained normal. Her EKG was unremarkable. She underwent a cardiac stress test which was negative. She was continued on PPI as her symptoms were concerning for acid reflux. She was also treated for HFpEF with Lasix. Wound care was consulted and gave wound care recommendations and started her on Doxycycline. She will call on Friday to set up a wound care follow up. She has labs ordered next week. She had microcytic anemia and will have iron studies done at that time. She should follow up with Dr. Salas in about a week for follow up. She has follow up with Dr. Faith in about a week also. She was discharged home in stable condition. Labs and Pending Lab Test: Laboratory Tests 01/24/22 21:39: Glucometer 239H 01/25/22 05:10: White Blood Count 8.2, Red Blood Count 3.70L, Hemoglobin 8.6L, Hematocrit 29L, Mean Corpuscular Volume 78L, Mean Corpuscular Hemoglobin 23L, Mean Corpuscular Hemoglobin Concent 30L, Red Cell Distribution Width 16.9H, Platelet Count 178, Mean Platelet Volume 10.9, Immature Granulocyte % (Auto) 1, Neutrophils (%) (Auto) 59, Lymphocytes (%) (Auto) 26, Monocytes (%) (Auto) 11, Eosinophils (%) (Auto) 3, Basophils (%) (Auto) 1, Neutrophils # (Auto) 4.9, Lymphocytes # (Auto) 2.2, Monocytes # (Auto) 0.9, Eosinophils # (Auto) 0.2, Basophils # (Auto) 0.1, Immature Granulocyte # (Auto) 0.0, Sodium Level 130L, Potassium Level 4.0, Chloride Level 97L, Carbon Dioxide Level 23, Anion Gap 10, Blood Urea Nitrogen 17, Creatinine 1.25, Estimat Glomerular Filtration Rate 42, BUN/Creatinine Ratio 14, Glucose Level 177H, Calcium Level 8.3L, Corrected Calcium 9.2, Magnesium Lev el 1.9, Total Bilirubin 0.5, Aspartate Amino Transf (AST/SGOT) 28, Alanine Aminotransferase (ALT/SGPT) 20, Alkaline Phosphatase 149H, Total Protein 6.8, Albumin 2.9L 01/25/22 05:33: Glucometer 180H 01/25/22 11:58: Glucometer 170H Home Meds Active Doxycycline Hyclate 100 Mg Tablet 100 Mg PO BID@ 7 Days Potassium Chloride 10 Meq Capsule.er 10 Meq PO Q48H Lasix (Furosemide) 20 Mg Tablet 20 Mg PO Q48H Reported Muscle Rub Ultra Str Cream (Methyl Salicylate/Menth/Camph) 30 %-10 %-4 % Cream..g. 1 Applic TP TID PRN Venlafaxine HCl 37.5 Mg Tab 37.5 Mg PO DAILY Carbidopa-Levodopa 25-100 Tab (Carbidopa/Levodopa) 25 Mg-100 Mg Tablet 1 Ea PO BID Anusol-Hc (Hydrocortisone) 2.5 % Cream..g. 1 Applic RC TID PRN APPLY TO ANAL AREA Cholestyramine Powder (Cholestyramine (with Sugar)) 4 Gram Powder 4 Gm PO 0900 TAKES 1 HOUR AFTER MORNING MEDS Metformin HCl 500 Mg Tablet 500 Mg PO BID Magnesium (Magnesium Oxide) 400 Mg Magnesium Tablet 400 Mg PO DAILY Novolog (Insulin Aspart) 100 Unit/Ml Susp 15 Unit SQ 1130 W/ LUNCH HOLD IF BS LESS THAN 120 Gabapentin 400 Mg Capsule 400 Mg PO 1200 Neurontin (Gabapentin) 300 Mg Capsule 300 Mg PO BID Pramipexole Dihydrochloride (Pramipexole Di-HCl) 0.125 Mg Tablet 0.125 Mg PO 1700 Omeprazole 20 Mg Capsule.dr 20 Mg PO DAILY Oxycodone HCl 10 Mg Tablet 10 Mg PO Q8H PRN Eliquis (Apixaban) 5 Mg Tablet 5 Mg PO BID Atorvastatin Calcium 80 Mg Tablet 80 Mg PO HS Synthroid (Levothyroxine Sodium) 75 Mcg Tablet 75 Mcg PO DAILY Levemir Flextouch (Insulin Detemir) 100 Unit/Ml (3 Ml) Insuln.pen 25 Units SQ HS Novolog Flexpen (Insulin Aspart) 100 Unit/Ml (3 Ml) Solution 12 Units SQ BID W/MEALS HOLD IF BS LESS THAN 120 Hydroxyzine HCl 25 Mg Tablet 25 Mg PO Q8H PRN Tolterodine Tartrate ER (Tolterodine Tartrate) 4 Mg Cap.er.24h 4 Mg PO DAILY Amlodipine Besylate 10 Mg Tablet 10 Mg PO DAILY Assessment/Pt Instructions Take medications as prescribed. Follow up with your PCP. Return with worsening chest pain, shortness of breath, or if you feel like you are getting worse. Discharge Planning: >30 minutes discharge planning Discharge Instructions Discharge Diet: Low Sodium Diet, ADA Diet Activity as Tolerated: Yes Consultations Cardiology, Wound Discharge Physical Examination Vital Signs Vital Signs Date Time Temp Pulse Resp B/P (MAP) Pulse Ox O2 Delivery O2 Flow Rate FiO2 01/25/22 15:30 36.9 48 16 157/65 95 Room Air 01/24/22 08:30 2.00 General Appearance: No Apparent Distress, Obese Respiratory: Lungs Clear, No Respiratory Distress Cardiovascular: Regular Rate, Rhythm, No Murmur Gastrointestinal: Normal Bowel Sounds, Soft Extremity: Non Tender, Inflammation (right lateral leg with ulcer) Skin: Normal Color, Warm/Dry Neurologic/Psychiatric: Alert, Normal Mood/Affect Allergies: Coded Allergies: No Known Drug Allergies (Verified , 05/06/19) Copy Copies To 1: NBA SALAS MD Copies To 2: JOVI SANTIAGO MD Discharge Summary Date of Admission Jan 24, 2022 at 06:32 Date of Discharge Jan 25, 2022 at 15:30 Discharge Date: Jan 25, 2022 Discharge Time: 15:30 Admission Diagnosis Chest pain Consults/Procedures Consulations Cardiology, Wound Procedures Stress test Discharge Diagnosis Chest pain Acute on chronic heart failure with preserved ejection fraction Cellulitis T2DM with hyperglycemia (1) Chest pain (2) CHF (congestive heart failure) Status: Acute (3) Cellulitis of right lower extremity without foot Status: Acute (4) IDDM (insulin dependent diabetes mellitus) Status: Acute (5) HTN (hypertension) Status: Chronic (6) Paroxysmal atrial fibrillation Status: Chronic (7) Obesity Status: Chronic Clinical Quality Measures AMI/AHF: ASA po Prior to arrival: Yes CHOLO HUANG MD Jan 25, 2022 19:33
[2022-01-26] MEDS ORDERED: FUROSEMIDE 40 MG (LASIX) TAB PO SCH (09:00)
== END 2022-01-25 15:30 | disposition home or self-care (01) | DRG 313 ==
LOC: EDUNIT# 05:11 → ER 05:13 → CSD 06:32 → 4TH 16:28
PROVIDERS: ADMIT Internal Medicine; ATTEND Internal Medicine
DX: R07.89 Other chest pain (principal); I50.33 Acute on chronic diastolic (congestive) heart failure; L03.115 Cellulitis of right lower limb; Z79.01 Long term (current) use of anticoagulants; E03.9 Hypothyroidism, unspecified; E78.00 Pure hypercholesterolemia, unspecified; F41.9 Anxiety disorder, unspecified; F32.A Depression, unspecified; G89.29 Other chronic pain; E11.40 Type 2 diabetes mellitus with diabetic neuropathy, unspecified; M54.9 Dorsalgia, unspecified; K58.9 Irritable bowel syndrome, unspecified; E11.65 Type 2 diabetes mellitus with hyperglycemia; I11.0 Hypertensive heart disease with heart failure; I48.0 Paroxysmal atrial fibrillation; Z79.4 Long term (current) use of insulin; Z79.899 Other long term (current) drug therapy; Z96.651 Presence of right artificial knee joint; K21.9 Gastro-esophageal reflux disease without esophagitis; E66.01 Morbid (severe) obesity due to excess calories; M19.90 Unspecified osteoarthritis, unspecified site; Z68.38 Body mass index [BMI] 38.0-38.9, adult; Z86.73 Personal history of transient ischemic attack (TIA), and cerebral infarction without residual deficits; E83.42 Hypomagnesemia; Z20.822 Contact with and (suspected) exposure to COVID-19
CPT/HCPCS: 36415; 51702; 71045; 78452; 80053; 82150; 82550; 82553; 82947; 83690; 83735; 83874; 83880; 84484; 85025; 85610; 85730; 87636; 93005; 93017; 93041; 93306; 94640; 94760

== ENCOUNTER 2022-02-11 16:43 | Emergency (ER) | payer MEDICARE, BC ==
[~2022-02-11] VITALS: Ht 158 cm; Wt 96.8 kg
[~2022-02-11 16:43] MED LIST changes: +CHOL378P6 PO; +DOXY100T2 PO; +FURO-125 PO; +GABA-490 PO; +HYDR30CR71 RC; +INSU100V16 SQ; +MAGN400T39 PO; +METF-397 PO; +METH114C4 TP; +MTP25TSR PO; +OMEP20CA18 PO; +POTA10CA43 PO; +PRAM0.128 PO; +VNL37.5T PO
--- NOTE | 2022-02-11 17:23 | ED Upper Extremity ---
General Chief Complaint: Upper Extremity Stated Complaint: LEFT ARM PAIN,SWOLLEN Nursing Triage Note: P[AIN STARTED ON FRIDAY WITH LEFT SHOULDER PAIN WORKING ITS WAY DOWN INTO THE HAND. NOTED SWELLING IN LEFT HAND. Source: patient Exam Limitations: no limitations History of Present Illness Date Seen by Provider: Feb 11, 2022 Time Seen by Provider: 17:17 Initial Comments Patient is a 86-year-old female with a history of hypertension, chronic anemia, paroxysmal atrial fibrillation, bulbous pemphigoid, ITP , arthritis who presented to ED for left arm swelling and pain. Pain started in her left shoulder radiate down to her left hand. She started having swelling on Friday with increased swelling yesterday of the left wrist and hand. She denies of any specific trauma or fall. She has no chest pain, shortness of breath, headache or neck pain. Denies history of swelling to her left arm. Chronic lower leg edema. She has blisters to her right leg that is chronic. Denies of any blistering formation. No history of lung cancer. Denies fever, chills, body aches or urinary symptoms. Patient with mild CHF. She denies of any redness. Denies of any area of injury Allergies and Home Medications Allergies Coded Allergies: No Known Drug Allergies (Verified , 05/06/19) Patient Home Medication List Home Medication List Reviewed: Yes Amlodipine Besylate (Amlodipine Besylate) 10 Mg Tablet, 10 MG PO DAILY, (Reported) Entered as Reported by: ABBY VAZQUEZ on 11/16/15 1717 Apixaban (Eliquis) 5 Mg Tablet, 5 MG PO BID, (Reported) Entered as Reported by: KEITH ROBLEDO on 03/02/21 1454 Atorvastatin Calcium (Atorvastatin Calcium) 80 Mg Tablet, 80 MG PO HS, (Reported) Entered as Reported by: KEITH ROBLEDO on 03/02/21 1454 Carbidopa/Levodopa (Carbidopa-Levodopa 25-100 Tab) 25 Mg-100 Mg Tablet, 1 EA PO BID, (Reported) Entered as Reported by: DIANA RASHID on 01/24/22 1151 Cholestyramine (with Sugar) (Cholestyramine Powder) 4 Gram Powder, 4 GM PO 0900, (Reported) Entered as Reported by: DIANA RASHID on 01/24/22 1151 Doxycycline Hyclate (Doxycycline Hyclate) 100 Mg Tablet, 100 MG PO BID@17 Prescribed by: CHOLO HUANG on 01/25/22 1640 Furosemide (Lasix) 20 Mg Tablet, 20 MG PO Q48H Prescribed by: GIULIANO BLACKWELL on 01/25/22 1323 Gabapentin (Neurontin) 300 Mg Capsule, 300 MG PO BID, (Reported) Entered as Reported by: DIANA RASHID on 01/24/22 115 Gabapentin (Gabapentin) 400 Mg Capsule, 400 MG PO 1200, (Reported) Entered as Reported by: DIANA RASHID on 01/24/22 115 Hydrocortisone (Anusol-Hc) 2.5 % Cream..g., 1 APPLIC RC TID PRN for ITCHING, (Reported) Entered as Reported by: DIANA RASHID on 01/24/22 115 Hydroxyzine HCl (Hydroxyzine HCl) 25 Mg Tablet, 25 MG PO Q8H PRN for ANXIETY, (Reported) Entered as Reported by: KEITH ROBLEDO on 03/02/21 145 Insulin Aspart (Novolog Flexpen) 100 Unit/Ml (3 Ml) Solution, 12 UNITS SQ BID W/MEALS, (Reported) Entered as Reported by: KEITH ROBLEDO on 03/02/21 145 Insulin Aspart (Novolog) 100 Unit/Ml Susp, 15 UNIT SQ 1130 W/ LUNCH, (Reported) Entered as Reported by: DIANA RASHID on 01/24/22 115 Insulin Detemir (Levemir Flextouch) 100 Unit/Ml (3 Ml) Insuln.pen, 25 UNITS SQ HS, (Reported) Entered as Reported by: KEITH ROBLEDO on 03/02/21 145 Levothyroxine Sodium (Synthroid) 75 Mcg Tablet, 75 MCG PO DAILY, (Reported) Entered as Reported by: KEITH ROBLEDO on 03/02/21 145 Magnesium Oxide (Magnesium) 400 Mg Magnesium Tablet, 400 MG PO DAILY, (Reported) Entered as Reported by: DIANA RASHID on 01/24/22 115 Metformin HCl (Metformin HCl) 500 Mg Tablet, 500 MG PO BID, (Reported) Entered as Reported by: DIANA RASHID on 01/24/22 115 Methyl Salicylate/Menth/Camph (Muscle Rub Ultra Str Cream) 30 %-10 %-4 % Cream..g., 1 APPLIC TP TID PRN for PAIN-BREAKTHROUGH, (Reported) Entered as Reported by: DIANA RASHID on 01/24/22 1159 Omeprazole (Omeprazole) 20 Mg Capsule.dr, 20 MG PO DAILY, (Reported) Entered as Reported by: DIANA RASHID on 01/24/22 1151 Oxycodone HCl (Oxycodone HCl) 10 Mg Tablet, 10 MG PO Q8H PRN for PAIN-SEVERE (8- 10), (Reported) Entered as Reported by: DIANA RASHID on 01/24/22 1151 Potassium Chloride (Potassium Chloride) 10 Meq Capsule.er, 10 MEQ PO Q48H Prescribed by: GIULIANO BLACKWELL on 01/25/22 1323 Pramipexole Di-HCl (Pramipexole Dihydrochloride) 0.125 Mg Tablet, 0.125 MG PO 1700, (Reported) Entered as Reported by: DIANA RASHID on 01/24/22 1151 Tolterodine Tartrate (Tolterodine Tartrate ER) 4 Mg Cap.er.24h, 4 MG PO DAILY, ( Reported) Entered as Reported by: ABBY VAZQUEZ on 11/16/15 1717 Venlafaxine HCl (Venlafaxine HCl) 37.5 Mg Tab, 37.5 MG PO DAILY, (Reported) Entered as Reported by: DIANA RASHID on 01/24/22 1151 Review of Systems Constitutional: No chills, No diaphoresis EENTM: double vision; No blurred vision Respiratory: No cough, No dyspnea on exertion, No short of breath Cardiovascular: No see HPI, No chest pain Gastrointestinal: No abdominal pain, No diarrhea, No nausea, No vomiting Genitourinary: No decreased output, No discharge Skin: change in color; No change in hair/nails All Other Systems Reviewed Negative Unless Noted: Yes Past Ebbxzci-Eyuyvd-Koklxh Hx Patient Social History Tobacco Use?: No Use of E-Cig and/or Vaping dev: No Substance use?: No Alcohol Use?: No Pt feels they are or have been: No Immunizations Up To Date Tetanus Booster (TDap): Unknown PED Vaccines UTD: No First/Initial COVID19 Vaccinat: September COVID19 Vaccination Wally: October COVID19 Vaccination Date: SEPTEMBER 2021 Past Medical History Surgeries: Yes (R KNEE REPLACEMENT, hernia w/mesh placement Dr Jones ) Abdominal, Appendectomy, Gallbladder, Hysterectomy, Joint Replacement, Orthopedic, Tonsillectomy Respiratory: No Cardiac: Yes (INTERMITTENT ATRIAL FIBRILLATION ) Atrial Fibrillation, Chronic Edema/Swelling, High Cholesterol, Hypertension Neurological: Yes (? PARKINSON'S ? ) Neuropathy Reproductive Disorders: No Female Reproductive Disorders: Denies Sexually Transmitted Disease: No HIV/AIDS: No Gastrointestinal: Yes (GERD) Gastroesophageal Reflux, Hiatal Hernia, Irritable Bowel Musculoskeletal: Yes (ARTHRITIS) Degenerate Disk Disease, Chronic Back Pain Endocrine: Yes (MORBID OBESTIY) Diabetes, Insulin dep, Hypothyroidsim Cataract Loss of Vision: Denies Hearing Impairment: Denies Cancer: No Psychosocial: Yes Anxiety, Depression Integumentary: Yes (bullous pemphigoid) Blood Disorders: No Family Medical History Cancer 03 MOTHER (STOMACH COLON ESOPHAGEAL) Cancer of colon 03 MOTHER 09 SISTER Family history: Cardiovascular disease 09 SISTER (HAS PACEMAKER) Family history: Diabetes mellitus 03 FATHER Myocardial infarction 03 FATHER No Family History of: Abdominal aortic aneurysm Dimmit's disease Alcoholism Aphasia Cataract Chest pain Congenital heart disease Congestive heart failure Cystic fibrosis Dementia Dysphagia Family history: Allergy Family history: Alzheimer's disease Family history: Arthritis Family history: Asthma Family history: Coronary thrombosis Family history: Gastrointestinal disease Family history: Glaucoma Family history: Hypertension Family history: Osteoporosis Family history: Thyroid disorder Headache Hearing loss Heart disease Hereditary disease History of - anemia History of - respiratory disease History of drug abuse Human immunodeficiency virus (HIV) seropositivity Hypercholesterolemia Infertile Kidney disease Malignant neoplasm of lung Parkinson's disease Prostate cancer Psychotic disorder Seizure disorder Stroke Tuberculosis Visual impairment No Pertinent Family Hx Physical Exam Vital Signs Vital Signs - First Documented 02/11/22 17:00 Temp 36.7 Pulse 71 Resp 18 B/P (MAP) 146/85 (105) Pulse Ox 94 O2 Delivery Room Air Capillary Refill : Less Than 3 Seconds Height, Weight, BMI Height: 5'2.00" Weight: 224lbs. 0.9oz. [id number]; 38.00 BMI Method:Stated General Appearance: WD/WN, no apparent distress HEENT: PERRL/EOMI, normal ENT inspection, TMs normal, pharynx normal Neck: non-tender, full range of motion Cardiovascular: regular rate, rhythm, no edema, no gallop, no JVD Respiratory: chest non-tender, lungs clear, normal breath sounds, no respiratory distress, no accessory muscle use Gastrointestinal: normal bowel sounds, non tender, soft Back: normal inspection, no CVA tenderness Shoulder: normal inspection, non-tender, no evidence of injury, normal ROM Elbow/Forearm: swelling Wrist: Yes soft tissue tenderness, Yes swelling 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 Below the elbow to the left hand) Progress/Results/Core Measures Results/Orders Lab Results Laboratory Tests Test 02/11/22 17:15 Range/Units White Blood Count 6.9 4.3-11.0 10^3/uL Red Blood Count 4.06 3.80-5.11 10^6/uL Hemoglobin 9.5 L 11.5-16.0 g/dL Hematocrit 32 L 35-52 % Mean Corpuscular Volume 78 L 80-99 fL Mean Corpuscular Hemoglobin 23 L 25-34 pg Mean Corpuscular Hemoglobin Concent 30 L 32-36 g/dL Red Cell Distribution Width 17.0 H 10.0-14.5 % Platelet Count 262 130-400 10^3/uL Mean Platelet Volume 10.7 9.0-12.2 fL Immature Granulocyte % (Auto) 0 % Neutrophils (%) (Auto) 66 42-75 % Lymphocytes (%) (Auto) 22 12-44 % Monocytes (%) (Auto) 7 0-12 % Eosinophils (%) (Auto) 4 0-10 % Basophils (%) (Auto) 1 0-10 % Neutrophils # (Auto) 4.5 1.8-7.8 10^3/uL Lymphocytes # (Auto) 1.5 1.0-4.0 10^3/uL Monocytes # (Auto) 0.5 0.0-1.0 10^3/uL Eosinophils # (Auto) 0.3 0.0-0.3 10^3/uL Basophils # (Auto) 0.1 0.0-0.1 10^3/uL Immature Granulocyte # (Auto) 0.0 0.0-0.1 10^3/uL Erythrocyte Sedimentation Rate > 140 H 0-30 MM/HR Sodium Level 135 135-145 MMOL/L Potassium Level 4.3 3.6-5.0 MMOL/L Chloride Level 101 98-107 MMOL/L Carbon Dioxide Level 19 L 21-32 MMOL/L Anion Gap 15 H 5-14 MMOL/L Blood Urea Nitrogen 16 7-18 MG/DL Creatinine 1.15 0.60-1.30 MG/DL Estimat Glomerular Filtration Rate 46 BUN/Creatinine Ratio 14 Glucose Level 105 70-105 MG/DL Calcium Level 8.7 8.5-10.1 MG/DL Corrected Calcium 9.5 8.5-10.1 MG/DL Total Bilirubin 0.6 0.1-1.0 MG/DL Aspartate Amino Transf (AST/SGOT) 28 5-34 U/L Alanine Aminotransferase (ALT/SGPT) 11 0-55 U/L Alkaline Phosphatase 188 H 40-136 U/L C-Reactive Protein High Sensitivity 12.00 H 0.00-0.50 MG/DL Total Protein 7.9 6.4-8.2 GM/DL Albumin 3.0 L 3.2-4.5 GM/DL My Orders Orders - SARAH KYLE PA Cbc With Automated Diff (02/11/22 17:16) Comprehensive Metabolic Panel (02/11/22 17:16) Hs C Reactive Protein (02/11/22 17:16) Erythrocyte Sedimentation Rate (02/11/22 17:16) Wrist, Left, 3 Views Or More (02/11/22 17:16) Chest 1 View, Ap/Pa Only (02/11/22 17:16) Vital Signs/I&O 02/11/22 02/11/22 17:00 18:52 Temp 36.7 Pulse 71 83 Resp 18 18 B/P (MAP) 146/85 (105) 141/90 Pulse Ox 94 95 O2 Delivery Room Air Room Air Blood Pressure Mean: 105 Departure Communication (PCP) Patient has notable swelling to the left hand and wrist. Patient left ring appears tight but she was refusing for removal of the ring. Discuss this can get worst if we dont remove the ring. She denies of any trauma. Has tenderness to the left wrist and especially with movement. There is no erythema or significant warmth. Cap refill less than 2. No specific trauma. Started left shoulder has worked its way down to the left hand. No chest pain, shortness of breath, nausea, vomiting. Has been able to urinate. Lab work showed normal white blood count and kidney function. Normal platelets. History of ITP and bulbous pemhigoid on her right leg. Not currently on any steroids. She is currently on a blood thinner Plavix. Due to the swelling recommend ultrasound to rule out DVT as a potential etiology. She did have elevated ESR greater than 140 and elevated CRP. Potentially autoimmune etiology. There is no rash to the upper extremity suggesting a vasculitis. Concerned that she may have some type of inflammatory response such as RA, lupus. Unclear if her levels are normally that high not able to compare to. She states she has had outpatient lab work done in the past which will need to be compared to outpatient ultra sound was ordered for in the morning. Follows up with Dr. Salas with results. She does not tolerate prednisone secondary to her diabetes. Limited NSAIDs secondary to her anticoagulant. She states she will follow-up with Dr. Salas to discuss medication as she is hesitant of taking a low-dose steroid versus few days worth of NSAIDs. Chest x-ray was unremarkable. No history of lung cancer. No swelling noted to the right extremity. Swelling appears to be localized to the hand and wrist. Recommend elevating your arm at night. Continue monitoring. If any increased swelling or developing redness to return back to ED for further evaluation. Does not appear to be cellulitic. But does have pain with the movement of the wrist and hand suggesting some form of inflammatory response. Impression Primary Impression: Arm swelling Disposition: 01 HOME, SELF-CARE Condition: Stable Departure-Patient Inst. Decision time for Depature: 18:43 Referrals: ENRRIQUE SALAS MD (PCP/Family) Primary Care Physician Patient Instructions: Swelling Add. Discharge Instructions: Recommend following up with your primary care physician in the next 2 to 3 days for reevaluation. Recommend following up with ultrasound tomorrow. Consider Tylenol for pain elevate at home. If any worsening swelling or developing redness to return back to ED All discharge instructions reviewed with patient and/or family. Voiced understanding. SARAH KYLE Feb 11, 2022 17:23
[2022-02-11 17:36] LABS: BASOPHILS # (AUTO) 0.1 10^3/uL (0.0-0.1); BASOPHILS % (AUTO) 1 % (0-10); EOSINOPHILS # (AUTO) 0.3 10^3/uL (0.0-0.3); EOSINOPHILS % (AUTO) 4 % (0-10); HEMATOCRIT 32 % (35-52); HEMOGLOBIN 9.5 g/dL (11.5-16.0); LYMPHOCYTES # (AUTO) 1.5 10^3/uL (1.0-4.0); LYMPHOCYTES % (AUTO) 22 % (12-44); MEAN CORPUSCULAR HEMOGLOBIN 23 pg (25-34); MEAN CORPUSCULAR HGB CONC 30 g/dL (32-36); MEAN CORPUSCULAR VOLUME 78 fL (80-99); MEAN PLATELET VOLUME 10.7 fL (9.0-12.2); MONOCYTES # (AUTO) 0.5 10^3/uL (0.0-1.0); MONOCYTES % (AUTO) 7 % (0-12); NEUTROPHILS # (AUTO) 4.5 10^3/uL (1.8-7.8); NEUTROPHILS % (AUTO) 66 % (42-75); PLATELET COUNT 262 10^3/uL (130-400); WHITE BLOOD COUNT 6.9 10^3/uL (4.3-11.0)
[2022-02-11 17:45] LABS: POTASSIUM 4.3 MMOL/L (3.6-5.0)
[2022-02-11 17:46] LABS: CALCIUM 8.7 MG/DL (8.5-10.1)
[2022-02-11 17:48] LABS: TOTAL PROTEIN 7.9 GM/DL (6.4-8.2)
[2022-02-11 17:49] LABS: BILIRUBIN,TOTAL 0.6 MG/DL (0.1-1.0)
[2022-02-11 17:51] LABS: CREATININE SERUM 1.15 MG/DL (0.60-1.30)
[2022-02-11 17:57] LABS: ERYTHROCYTE SEDIMENTATION RATE > 140 MM/HR (0-30)
--- NOTE | 2022-02-11 17:57 | Diagnostic Imaging Report ---
INDICATION: Wrist pain EXAMINATION: Left wrist 02/11/2022 FINDINGS: 3 views of the wrist demonstrate osteopenia with diffuse subchondral cystic changes throughout the carpals. There is narrowing, spurring and sclerosis at the 1st carpometacarpal joint with similar findings seen at the scaphoid trapezium triquetral joint space. Radiocarpal joint space narrowing is also noted. No acute fractures appreciated. No dislocations. IMPRESSION: 1. Chronic findings with no acute osseous abnormality. Dictated by: Dictated on workstation # [id number]
--- NOTE | 2022-02-11 17:58 | Diagnostic Imaging Report ---
EXAMINATION: Chest 1 view HISTORY: left wrist pain COMPARISON: 01/24/2022 FINDINGS: The lungs are clear without edema or pneumonia. No pleural effusion or pneumothorax. Heart size is normal. IMPRESSION: 1. Clear lungs. Dictated by: Dictated on workstation # [id number]
[2022-02-11 18:52] VITALS: BP 141/90
== END 2022-02-11 18:58 | disposition home or self-care (01) ==
LOC: EDUNIT# 16:43 → ER 16:46
DX: M79.89 Other specified soft tissue disorders (principal); R70.0 Elevated erythrocyte sedimentation rate; R79.82 Elevated C-reactive protein (CRP); E11.40 Type 2 diabetes mellitus with diabetic neuropathy, unspecified; E66.01 Morbid (severe) obesity due to excess calories; Z68.38 Body mass index [BMI] 38.0-38.9, adult; Z79.02 Long term (current) use of antithrombotics/antiplatelets; Z79.4 Long term (current) use of insulin
CPT/HCPCS: 36415; 71045; 73110; 80053; 85025; 85652; 86141

== ENCOUNTER → 2022-02-12 | Outpatient (CLI) | payer MEDICARE, BC ==
--- NOTE | 2022-02-12 16:42 | Diagnostic Imaging Report ---
PROCEDURE: US venous upper extremity left. TECHNIQUE: Multiple realtime grayscale images were obtained of left upper extremity in various projections. Additional spectral analysis and color Doppler duplex images were also obtained. INDICATION: Left arm pain and swelling The veins of the left upper extremity have good color filling and compressibility. There is phasic flow and a normal response to augmentation. IMPRESSION: Negative venous Doppler left upper extremity Dictated by: Dictated on workstation # [id number]
== END ==
LOC: RAD 15:36
PROVIDERS: ATTEND Physician Assistant
DX: M79.602 Pain in left arm (principal); M79.89 Other specified soft tissue disorders

== ENCOUNTER → 2022-05-06 | Outpatient (CLI) | payer MEDICARE, BC ==
[~2022-05-06] MED LIST changes: -CARB1TAB19 PO; +CARB1TAB32 PO; +CHOL378P12 PO; -CHOL378P6 PO
[2022-05-06 14:46] LABS: BASOPHILS % (AUTO) 1 % (0-10); EOSINOPHILS # (AUTO) 0.2 10^3/uL (0.0-0.3); EOSINOPHILS % (AUTO) 3 % (0-10); HEMATOCRIT 36 % (35-52); HEMOGLOBIN 10.5 g/dL (11.5-16.0); LYMPHOCYTES # (AUTO) 1.3 X 10^3 (1.0-4.0); LYMPHOCYTES % (AUTO) 19 % (12-44); MEAN CORPUSCULAR HEMOGLOBIN 25 pg (25-34); MEAN CORPUSCULAR HGB CONC 29 g/dL (32-36); MEAN CORPUSCULAR VOLUME 83 fL (80-99); MEAN PLATELET VOLUME 10.3 fL (9.0-12.2); MONOCYTES # (AUTO) 0.5 X 10^3 (0.0-1.0); MONOCYTES % (AUTO) 8 % (0-12); NEUTROPHILS # (AUTO) 4.7 X 10^3 (1.8-7.8); NEUTROPHILS % (AUTO) 70 % (42-75); PLATELET COUNT 238 10^3/uL (130-400); WHITE BLOOD COUNT 6.8 10^3/uL (4.3-11.0)
[2022-05-06 15:00] LABS: ALBUMIN 3.2 GM/DL (3.2-4.5); BILIRUBIN,TOTAL 0.3 MG/DL (0.1-1.0); CALCIUM 7.5 MG/DL (8.5-10.1); CREATININE SERUM 1.05 MG/DL (0.60-1.30); POTASSIUM 4.7 MMOL/L (3.6-5.0); TOTAL PROTEIN 7.9 GM/DL (6.4-8.2)
[2022-05-06 15:06] LABS: ERYTHROCYTE SEDIMENTATION RATE 81 MM/HR (0-30)
== END ==
LOC: WOUNDCARE 12:57
PROVIDERS: ATTEND Family Medicine
DX: L12.0 Bullous pemphigoid (principal); L03.115 Cellulitis of right lower limb; I89.0 Lymphedema, not elsewhere classified; E66.01 Morbid (severe) obesity due to excess calories; E11.622 Type 2 diabetes mellitus with other skin ulcer; D46.4 Refractory anemia, unspecified
CPT/HCPCS: 80053; 82728; 83036; 83540; 83550; 85025; 85652; 86141; G0463; 36415; 99212

== ENCOUNTER 2022-10-27 17:57 | Inpatient (IN) | payer MEDICARE, BC ==
[~2022-10-27] VITALS: Ht 157 cm; Wt 106.4 kg
[~2022-10-27 17:57] MED LIST changes: -INSU100I29 SC; -INSU100I29 SQ; +INSU100I30 SC; +INSU100I30 SQ; -POTA10CA43 PO; +POTA10CA44 PO
[2022-10-27] MEDS ORDERED: fentaNYL INJ 100 MCG/2 ML AMP IVP STA ×2 (18:04→19:49)
--- NOTE | 2022-10-27 18:10 | ED Lower Extremity ---
General Chief Complaint: Trauma-Non Activation Stated Complaint: L KNEE PAIN Source: patient Exam Limitations: no limitations History of Present Illness Date Seen by Provider: Oct 27, 2022 Time Seen by Provider: 18:07 Initial Comments Patient is a 87-year-old female who is currently Eliquis who was brought to the ED for left knee pain. Patient states she typically ambulates with a walker. She is a resident at [facility]. She attempted to pick a book off the ground when she fell landing directly on her left knee yesterday. Since the fall she has not been able to ambulate or get around. Nursing staff checked on her today and assisted her getting her around. Did give her oxycodone around 4 PM today without much improvement. She has few skin abrasion and swelling to the left anterior knee with pain with any type of movement. She denies hitting her head or loss of consciousness. She is currently on Eliquis. Patient denies of any distal numbness and tingling, nausea, vomiting, diarrhea, pelvic pain, back pain, chest pain, shortness of breath, headache or dizziness Allergies and Home Medications Allergies Coded Allergies: No Known Drug Allergies (Verified , 05/06/19) Patient Home Medication List Home Medication List Reviewed: Yes Acetaminophen (Tylenol Extra Strength) 500 Mg Tablet, 500 MG PO QID, (Reported) Entered as Reported by: DIANA RASHID on 10/30/22 0932 Last Action: Continued Amlodipine Besylate (Amlodipine Besylate) 10 Mg Tablet, 10 MG PO DAILY, (Reported) Entered as Reported by: ABBY VAZQUEZ on 11/16/15 1717 Last Action: Continued Apixaban (Eliquis) 5 Mg Tablet, 5 MG PO BID, (Reported) Entered as Reported by: KEITH ROBLEDO on 03/02/21 9990 Last Action: Reviewed Atorvastatin Calcium (Atorvastatin Calcium) 80 Mg Tablet, 80 MG PO HS, (Reported) Entered as Reported by: KEITH ROBLDEO on 03/02/21 711 Last Action: Reviewed Calcium Carbonate/Vitamin D3 (Calcium 600 + Vit D 400 Tablet) 600 Mg Calcium-10 Mcg (400 Unit) Tablet, 600 MG PO TIDWM Prescribed by: SACHIN MONTGOMERY on 11/01/22 0827 Carbidopa/Levodopa (Carbidopa-Levodopa 25-100 Tab) 25 Mg-100 Mg Tablet, 1 EA PO BID, (Reported) Entered as Reported by: DIANA RASHID on 01/24/221150 Last Action: Reviewed Diclofenac Sodium (Diclofenac Sodium) 1 % Gel..gram., 2 GM TOP UD PRN for PAIN- BREAKTHROUGH, (Reported) Entered as Reported by: DIANA RASHID on 10/30/22931 Last Action: Reviewed Ergocalciferol (Vitamin D2) (Vitamin D2) 1,250 Mcg (06431 Unit) Capsule, 1.25 MG PO We@09 Prescribed by: SACHIN MONTGOMERY on 11/01/22826 Furosemide (Furosemide) 20 Mg Tablet, 20 MG PO Q48H, (Reported) Entered as Reported by: DIANA RASHID on 10/30/22931 Last Action: Continued Gabapentin (Neurontin) 300 Mg Capsule, 300 MG PO BID, (Reported) Entered as Reported by: DIANA RASHID on 01/24/221150 Last Action: Reviewed Gabapentin (Gabapentin) 400 Mg Capsule, 400 MG PO 1200, (Reported) Entered as Reported by: DIANA RASHID on 01/24/221150 Last Action: Reviewed Guaifenesin (Mucinex) 600 Mg Tab.er.12h, 600 MG PO Q12H PRN for ALLERGY, (Reported) Entered as Reported by: DIANA RASHID on 10/30/22931 Last Action: Reviewed Hydrocodone/Acetaminophen (Hydrocodone-Acetamin 10-325 mg) 10 Mg-325 Mg Tablet, 1 EA PO Q6H PRN for PAIN-MODERATE (5-7), (Reported) Entered as Reported by: DIANA RASHID on 10/30/22931 Last Action: Continued Hydrocortisone (Anusol-Hc) 2.5 % Cream..g., 1 APPLIC RC TID PRN for ITCHING, (Reported) Entered as Reported by: DIANA RASHID on 01/24/221150 Last Action: Held Hydroxyzine HCl (Hydroxyzine HCl) 25 Mg Tablet, 25 MG PO Q8H PRN for ANXIETY, (Reported) Entered as Reported by: KEITH ROBLEDO on 03/02/21 1654 Last Action: Reviewed Insulin Aspart (Novolog Flexpen) 100 Unit/Ml (3 Ml) Solution, UNITS SQ AC, (Reported) Entered as Reported by: DIANA RASHID on 10/30/22931 Last Action: Reviewed Insulin Detemir (Levemir Flextouch) 100 Unit/Ml (3 Ml) Insuln.pen, 25 UNITS SQ HS, (Reported) Entered as Reported by: KEITH ROBLEDO on 03/02/211453 Last Action: Reviewed Levothyroxine Sodium (Synthroid) 75 Mcg Tablet, 75 MCG PO DAILY, (Reported) Entered as Reported by: KEITH ROBLEDO on 03/02/211453 Last Action: Continued Loperamide HCl (Loperamide) 2 Mg Capsule, 2 MG PO Q48H Prescribed by: SACHIN MONTGOMERY on 11/01/22826 Magnesium Oxide (Magnesium Oxide) 250 Mg Tablet, 250 MG PO DAILY, (Reported) Entered as Reported by: DIANA RASHID on 10/30/22931 Last Action: Converted Methyl Salicylate/Menth/Camph (Muscle Rub Ultra Str Cream) 30 %-10 %-4 % Cream..g., 1 APPLIC TP TID PRN for PAIN-BREAKTHROUGH, (Reported) Entered as Reported by: DIANA RASHID on 01/24/221158 Last Action: Held Omeprazole (Omeprazole) 20 Mg Capsule.dr, 20 MG PO DAILY, (Reported) Entered as Reported by: DIANA RASHID on 10/30/22939 Last Action: Held Pediatric Multivit No.203/Iron (Flintstones with Iron Tab Chew) 18 Mg Iron Tab.chew, 18 MG PO DAILY, (Reported) Entered as Reported by: DIANA RASHID on 10/30/22931 Last Action: Reviewed Potassium Chloride (Potassium Chloride) 20 Meq Tablet.er, 20 MEQ PO Q48H, (Reported) Entered as Reported by: DIANA RASHID on 10/30/22931 Last Action: Converted Pramipexole Di-HCl (Pramipexole Dihydrochloride) 0.125 Mg Tablet, 0.125 MG PO 1700, (Reported) Entered as Reported by: DIANA RASHID on 01/24/22 115 Last Action: Reviewed Psyllium Husk/Aspartame (Metamucil Fiber Singles Packet) 3.4 Gram Powd.pack, 0.5 PACKET PO TIDWM Prescribed by: SACHIN MONTGOMERY on 11/01/22826 Tolterodine Tartrate (Tolterodine Tartrate ER) 4 Mg Cap.er.24h, 4 MG PO DAILY, (Reported) Entered as Reported by: ABBY VAZQUEZ on 11/16/15 1717 Last Action: Converted Venlafaxine HCl (Venlafaxine HCl) 37.5 Mg Tab, 37.5 MG PO DAILY, (Reported) Entered as Reported by: DIANA RASHID on 01/24/22 115 Last Action: Continued Vitamin D (Vitamin D3) 10 Mcg (400 Unit) Tablet, 10 MCG PO DAILY@0700 Prescribed by: SACHIN MONTGOMERY on 11/01/22 08 [Magic Mouth Wash] SUSP, 15 ML PO QID, (Reported) Entered as Reported by: DIANA RASHID on 10/30/22 0935 Last Action: Held Discontinued Medications Cholestyramine (with Sugar) (Cholestyramine Powder) 4 Gram Powder, 4 GM PO 0900, (Reported) Entered as Reported by: DIANA RASHID on 01/24/22 115 Last Action: Discontinued Doxycycline Hyclate (Doxycycline Hyclate) 100 Mg Tablet, 100 MG PO BID@17 Prescribed by: CHOLO HUANG on 01/25/22 1640 Last Action: Discontinued Furosemide (Lasix) 20 Mg Tablet, 20 MG PO Q48H Discontinued Reason: No Longer Taking Prescribed by: GIULIANO BLACKWELL on 01/25/22 1323 Last Action: Discontinued Insulin Aspart (Novolog Flexpen) 100 Unit/Ml (3 Ml) Solution, 12 UNITS SQ BID W/MEALS, (Reported) Discontinued Reason: No Longer Taking Entered as Reported by: KEITH ROBLEDO on 03/02/21 1454 Last Action: Discontinued Insulin Aspart (Novolog) 100 Unit/Ml Susp, 15 UNIT SQ 1130 W/ LUNCH, (Reported) Discontinued Reason: No Longer Taking Entered as Reported by: DIANA RASHID on 01/24/22 115 Last Action: Discontinued Magnesium Oxide (Magnesium) 400 Mg Magnesium Tablet, 400 MG PO DAILY, (Reported) Discontinued Reason: Prescription changed Entered as Reported by: DIANA RASHID on 01/24/22 1151 Menthol/Camphor (Menthol-Camphor 10%-4% Cream) 10 %-4 % Cream..g., 1 APPLIC TP TID PRN for PAIN-BREAKTHROUGH, (Reported) Discontinued Reason: Duplicate Order Entered as Reported by: DIANA RASHID on 10/30/22 0932 Last Action: Discontinued Metformin HCl (Metformin HCl) 500 Mg Tablet, 500 MG PO BID, (Reported) Entered as Reported by: DIANA RASHID on 01/24/22 115 Last Action: Discontinued Omeprazole (Omeprazole) 20 Mg Capsule.dr, 20 MG PO DAILY, (Reported) Discontinued Reason: No Longer Taking Entered as Reported by: DIANA RASHID on 01/24/22 115 Last Action: Discontinued Oxycodone HCl (Oxycodone HCl) 10 Mg Tablet, 10 MG PO Q8H PRN for PAIN-SEVERE (8- 10), (Reported) Discontinued Reason: No Longer Taking Entered as Reported by: DIANA RASHID on 01/24/221150 Last Action: Discontinued Potassium Chloride (Potassium Chloride) 10 Meq Capsule.er, 10 MEQ PO Q48H Discontinued Reason: Duplicate Order Prescribed by: GIULIANO BLACKWELL on 01/25/22 1323 Last Action: Discontinued Review of Systems Constitutional: No chills, No diaphoresis EENTM: No ear pain, No blurred vision, No double vision Respiratory: No dyspnea on exertion Cardiovascular: No chest pain Gastrointestinal: No abdominal pain, No diarrhea, No nausea, No vomiting Genitourinary: No decreased output, No discharge Musculoskeletal: No back pain; joint pain, muscle pain Skin: change in color Past Ataqtla-Jztltb-Hzbvpp Hx Patient Social History Tobacco Use?: No Use of E-Cig and/or Vaping dev: No Substance use?: No Alcohol Use?: No Pt feels they are or have been: No Immunizations Up To Date Tetanus Booster (TDap): Unknown PED Vaccines UTD: No First/Initial COVID19 Vaccinat: RECEIVED, UNK WHEN Second COVID19 Vaccination Wally: RECEIVED, UNK WHEN Third COVID19 Vaccination Date: RECEIVED, UNK WHEN COVID19 Vaccine Plumber: NISH Past Medical History Surgeries: Yes (R KNEE REPLACEMENT, hernia w/mesh placement Dr Jones ) Abdominal, Appendectomy, Gallbladder, Hysterectomy, Joint Replacement, Orthopedic, Tonsillectomy Respiratory: No Cardiac: Yes (INTERMITTENT ATRIAL FIBRILLATION ) Atrial Fibrillation, Chronic Edema/Swelling, High Cholesterol, Hypertension Neurological: Yes (? PARKINSON'S ? ) Neuropathy Reproductive Disorders: No Female Reproductive Disorders: Denies Sexually Transmitted Disease: No HIV/AIDS: No Gastrointestinal: Yes (GERD) Gastroesophageal Reflux, Hiatal Hernia, Irritable Bowel Musculoskeletal: Yes (ARTHRITIS) Degenerate Disk Disease, Chronic Back Pain Endocrine: Yes (MORBID OBESTIY) Diabetes, Insulin dep, Hypothyroidsim Cataract Loss of Vision: Denies Hearing Impairment: Denies Cancer: No Psychosocial: Yes Anxiety, Depression Integumentary: Yes (bullous pemphigoid) Blood Disorders: No Family Medical History Cancer 03 MOTHER (STOMACH COLON ESOPHAGEAL) Cancer of colon 03 MOTHER 09 SISTER Family history: Cardiovascular disease 09 SISTER (HAS PACEMAKER) Family history: Diabetes mellitus 03 FATHER Myocardial infarction 03 FATHER No Family History of: Abdominal aortic aneurysm [place]'s disease Alcoholism Aphasia Cataract Chest pain Congenital heart disease Congestive heart failure Cystic fibrosis Dementia Dysphagia Family history: Allergy Family history: Alzheimer's disease Family history: Arthritis Family history: Asthma Family history: Coronary thrombosis Family history: Gastrointestinal disease Family history: Glaucoma Family history: Hypertension Family history: Osteoporosis Family history: Thyroid disorder Headache Hearing loss Heart disease Hereditary disease History of - anemia History of - respiratory disease History of drug abuse Human immunodeficiency virus (HIV) seropositivity Hypercholesterolemia Infertile Kidney disease Malignant neoplasm of lung Parkinson's disease Prostate cancer Psychotic disorder Seizure disorder Stroke Tuberculosis Visual impairment No Pertinent Family Hx Physical Exam Vital Signs Vital Signs - First Documented Capillary Refill : Height, Weight, BMI Height: 5'2.00" Weight: 224lbs. 0.9oz. 101.412792gu; 38.00 BMI Method:Stated General Appearance: WD/WN, no apparent distress HEENT: PERRL/EOMI, normal ENT inspection, TMs normal, pharynx normal Neck: non-tender, full range of motion, supple, normal inspection Cardiovascular: regular rate, rhythm, no edema, no gallop, no JVD Respiratory: chest non-tender, lungs clear, normal breath sounds, no respiratory distress, no accessory muscle use Gastrointestinal: normal bowel sounds, non tender, soft, no organomegaly, no pulsatile mass Back: normal inspection, no CVA tenderness Legs: left leg other (Skin abrasions to the left anterior knee.) Knees: left knee pain (Tenderness to palpate left lateral knee.), left knee soft tissue tenderness, left knee swelling Ankles: bilateral ankle non-tender, bilateral ankle normal inspection, bilateral ankle normal range of motion Feet: bilateral foot non-tender, bilateral foot normal inspection, bilateral foot normal range of motion, bilateral foot other (Bilateral lower extremity edema +2. 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 as tested, no motor/sensory deficits, alert, normal mood/affect, oriented x 3 Skin: normal color, warm/dry Progress/Results/Core Measures Results/Orders Lab Results Laboratory Tests Test 10/27/22 22:51 10/27/22 22:53 Range/Units White Blood Count 9.2 4.3-11.0 10^3/uL Red Blood Count 3.86 3.80-5.11 10^6/uL Hemoglobin 10.3 L 11.5-16.0 g/dL Hematocrit 34 L 35-52 % Mean Corpuscular Volume 89 80-99 fL Mean Corpuscular Hemoglobin 27 25-34 pg Mean Corpuscular Hemoglobin Concent 30 L 32-36 g/dL Red Cell Distribution Width 17.4 H 10.0-14.5 % Platelet Count 168 130-400 10^3/uL Mean Platelet Volume 11.4 9.0-12.2 fL Immature Granulocyte % (Auto) 0 % Neutrophils (%) (Auto) 71 42-75 % Lymphocytes (%) (Auto) 14 12-44 % Monocytes (%) (Auto) 10 0-12 % Eosinophils (%) (Auto) 3 0-10 % Basophils (%) (Auto) 1 0-10 % Neutrophils # (Auto) 6.5 1.8-7.8 10^3/uL Lymphocytes # (Auto) 1.3 1.0-4.0 10^3/uL Monocytes # (Auto) 0.9 0.0-1.0 10^3/uL Eosinophils # (Auto) 0.3 0.0-0.3 10^3/uL Basophils # (Auto) 0.1 0.0-0.1 10^3/uL Immature Granulocyte # (Auto) 0.0 0.0-0.1 10^3/uL Sodium Level 139 135-145 MMOL/L Potassium Level 3.9 3.6-5.0 MMOL/L Chloride Level 108 H 98-107 MMOL/L Carbon Dioxide Level 20 L 21-32 MMOL/L Anion Gap 11 5-14 MMOL/L Blood Urea Nitrogen 14 7-18 MG/DL Creatinine 1.02 0.60-1.30 MG/DL Estimat Glomerular Filtration Rate 53 BUN/Creatinine Ratio 14 Glucose Level 171 H 70-105 MG/DL Calcium Level 4.7 *L 8.5-10.1 MG/DL Corrected Calcium 5.7 L 8.5-10.1 MG/DL Magnesium Level < 0.6 *L 1.6-2.4 MG/DL Total Bilirubin 0.4 0.1-1.0 MG/DL Aspartate Amino Transf (AST/SGOT) 71 H 5-34 U/L Alanine Aminotransferase (ALT/SGPT) 34 0-55 U/L Alkaline Phosphatase 115 40-136 U/L Total Protein 6.8 6.4-8.2 GM/DL Albumin 2.8 L 3.2-4.5 GM/DL Phosphorus Level 3.5 2.3-4.7 MG/DL My Orders Orders - SARAH KYLE Knee, Left, 3 Views (10/27/22 18:04) Fentanyl Inj (Sublimaze Injection) (10/27/22 18:04) Morphine Injection (Morphine Injection (10/27/22 19:15) Ondansetron Injection (Zofran Injectio (10/27/22 19:15) Ct Extremity Lower Left Wo (10/27/22 19:43) Fentanyl Inj (Sublimaze Injection) (10/27/22 19:49) Cbc With Automated Diff (10/27/22 21:02) Comprehensive Metabolic Panel (10/27/22 21:02) Medications Given in ED Vital Signs/I&O 10/27/22 10/27/22 18:02 18:02 Temp 36.6 36.6 Pulse 73 73 Resp 18 18 B/P (MAP) 146/99 (115) 146/99 (115) Pulse Ox 98 98 O2 Delivery Room Air Room Air Blood Pressure Mean: 115 Departure Communication (Admissions) Time/Spoke to Admitting Phy: 21:00 Patient was discussed with Dr. PAYNE. Patient continue having significant pain to her left knee after 3 rounds of pain medication. Unable to flex her left knee due to her pain after her fall. Patient will be admitted for intractable left knee pain. Would likely benefit with inpatient rehab if patient becomes a candidate however this is a concern as patient is not able to stand or bear any weight at this time. CBC and CMP was drawn right before patient left for fourth floor. Noted patient calcium 4.7. Corrected calcium 5.7. History of hypocalcemia contacted the floor who states they contacted Dr. PAYNE and received order. Communication (PCP) Patient with left knee pain. Differential diagnosis, left knee contusion, left knee fracture, left leg fracture. resident at [facility]. Fell yesterday while attempting to get a book while using her walker. Landed on the left knee. Denies hitting her head or loss of conscious. She is on Eliquis. Since then has had increasing pain not able to ambulate due to pain in left knee. She has no calf, foot, ankle or hip tenderness. Neurovascular intact left leg. she does have abrasions and swelling noted to the left knee. Due to mechanism of injury x-ray was ordered which was negative for fracture, did note osteoarthritis. Patient in moderate distress. Patient was given a few rounds of fentanyl and morphine without much improvement. Due to increasing pain and to rule out a potential fracture that was missed on x-ray CT scan of the knee was ordered. CT scan shows severe osteoarthritis without evidence of acute fracture. Due to the continued pain patient not able to ambulate patient was discussed with her primary care physician Dr. Payne. Discussed admission for pain control, PT, OT and potential rehab. She agrees with this plan of action. CBC and CMP was ordered. She request pain medication orally. History of elevated PTH. History of hypocalcemia. patient CBC grossly unremarkable. Did have a hemoglobin of 10.3. Patient with normal kidney function and liver function. Calcium 4.7. Corrected calcium 5.7. Patient was upstairs at the time of the results. Nursing staff called Dr. PAYNE and Dr. PAYNE who gave a order for oral calcium. She denies tingling in her lips or fingers, confusion, evidence of tetany. Some of the leg pain which maybe more cramping could be secondary to the hypocalcemia however I would suspect more bilateral leg pain type discomfort. Magnesium was ordered. Impression Primary Impression: Left knee pain Additional Impression: Hypocalcemia Disposition: ADMITTED INPATIENT Condition: Stable Admissions Decision to Admit Reason: Admit from ER (General) Decision to Admit/Date: Oct 27, 2022 Time/Decision to Admit Time: 21:00 Departure-Patient Inst. Referrals: ENRRIQUE SALAS MD (PCP/Family) Primary Care Physician Scripts Vitamin D (Vitamin D3) 10 Mcg (400 Unit) Tablet 10 MCG PO DAILY@0700, #30 TAB 6 Refills Prov: SACHIN MONTGOMERY MD 11/01/22 Ergocalciferol (Vitamin D2) (Vitamin D2) 1,250 Mcg (05882 Unit) Capsule 1.25 MG PO We@09, #14 CAP 0 Refills Prov: SACHIN MONTGOMERY MD 11/01/22 Psyllium Husk/Aspartame (Metamucil Fiber Singles Packet) 3.4 Gram Powd.pack 0.5 PACKET PO TIDWM, #90 EACH 3 Refills Prov: SACHIN MONTGOMERY MD 11/01/22 Loperamide HCl (Loperamide) 2 Mg Capsule 2 MG PO Q48H for 60 Days, #30 CAP 3 Refills Prov: SACHIN MONTGOMERY MD 11/01/22 Calcium Carbonate/Vitamin D3 (Calcium 600 + Vit D 400 Tablet) 600 Mg Calcium-10 Mcg (400 Unit) Tablet 600 MG PO TIDWM, #90 TAB 6 Refills Prov: SACHIN MONTGOMERY MD 11/01/22 SARAH KYLE Oct 27, 2022 18:10
[2022-10-27] MEDS ORDERED: morphine INJ 10 MG/ML 1ML (SYR OR VIAL) IVP ONE (19:15)
[2022-10-27] MEDS ORDERED: ONDANSETRON 4 MG/2 ML (SDV) Z0FRAN IVP ONE (19:15)
--- NOTE | 2022-10-27 19:15 | Diagnostic Imaging Report ---
INDICATION: Left knee injury with swelling and inability to bear weight. EXAMINATION: AP, oblique and lateral views of left knee were obtained. FINDINGS: There is diffuse joint space narrowing. No acute fracture is identified. There is atherosclerotic calcification. Diffuse subcutaneous edema is also present. There is no significant joint effusion appreciated. IMPRESSION: Osteoarthritis of the left knee with diffuse swelling of the tissue surrounding the knee. No acute osseous abnormality is seen. Dictated by: Dictated on workstation # [id number]
--- NOTE | 2022-10-27 20:44 | Diagnostic Imaging Report ---
PROCEDURE: CT left lower extremity without contrast. TECHNIQUE: Multiple contiguous axial images were obtained through the left lower extremity without the use of intravenous contrast. Sagittal and coronal reformations were then performed. Auto Exposure Controls were utilized during the CT exam to meet ALARA standards for radiation dose reduction. INDICATION: Fall with left knee injury and inability to bear weight. FINDINGS: Scattered lucencies are seen throughout the osseous structures likely related to bone resorption. There is diffuse joint space narrowing indicating cartilage loss with marginal osteophytes. There is mild joint fluid present. No definite acute fracture is appreciated. There is marked narrowing of the lateral patellofemoral joint space. Atherosclerotic calcifications are seen, diffusely. IMPRESSION: 1. Advanced osteoarthritis with mild joint fluid present. No acute fracture or dislocation is seen. 2. There is extensive patchy osseous demineralization which may be related to osteoporosis. Appearance of lucencies would be atypical for multiple myeloma although clinical correlation would be useful. Dictated by: Dictated on workstation # [id number]
[2022-10-27 22:58] LABS: BASOPHILS # (AUTO) 0.1 10^3/uL (0.0-0.1); BASOPHILS % (AUTO) 1 % (0-10); EOSINOPHILS # (AUTO) 0.3 10^3/uL (0.0-0.3); EOSINOPHILS % (AUTO) 3 % (0-10); HEMATOCRIT 34 % (35-52); HEMOGLOBIN 10.3 g/dL (11.5-16.0); LYMPHOCYTES # (AUTO) 1.3 10^3/uL (1.0-4.0); LYMPHOCYTES % (AUTO) 14 % (12-44); MEAN CORPUSCULAR HEMOGLOBIN 27 pg (25-34); MEAN CORPUSCULAR HGB CONC 30 g/dL (32-36); MEAN CORPUSCULAR VOLUME 89 fL (80-99); MEAN PLATELET VOLUME 11.4 fL (9.0-12.2); MONOCYTES # (AUTO) 0.9 10^3/uL (0.0-1.0); MONOCYTES % (AUTO) 10 % (0-12); NEUTROPHILS # (AUTO) 6.5 10^3/uL (1.8-7.8); NEUTROPHILS % (AUTO) 71 % (42-75); PLATELET COUNT 168 10^3/uL (130-400); WHITE BLOOD COUNT 9.2 10^3/uL (4.3-11.0)
[2022-10-27 23:06] LABS: ALBUMIN 2.8 GM/DL (3.2-4.5)
[2022-10-27 23:07] LABS: POTASSIUM 3.9 MMOL/L (3.6-5.0)
[2022-10-27 23:09] LABS: TOTAL PROTEIN 6.8 GM/DL (6.4-8.2)
[2022-10-27 23:11] LABS: BILIRUBIN,TOTAL 0.4 MG/DL (0.1-1.0)
[2022-10-27 23:13] LABS: CREATININE SERUM 1.02 MG/DL (0.60-1.30)
[2022-10-27 23:25] VITALS: BP 161/71
[2022-10-27 23:27] LABS: CALCIUM 4.7 MG/DL (8.5-10.1)
[2022-10-28] MEDS ORDERED: CALCIUM CARBONATE 600 MG (CALCARB) TAB PO ONE
[2022-10-28] MEDS: HYDROcodone/APAP 5 MG/325 MG (LORTAB) TAB PO PRN ×3 (00:53→22:37)
[2022-10-28] MEDS ORDERED: CALCIUM CARBONATE 500 MG (TUMS) TAB.CHEW PO ONE (01:00)
[2022-10-28] MEDS: MAGNESIUM 1 GM/100 ML IVPB 100 ML IV SCH ×6 (01:12→12:55)
[2022-10-28 03:44] VITALS: BP 128/60
[2022-10-28] MEDS: CATHETER FLUSH 10 ML SYR IVP SCH ×3 (03:48→20:33)
[2022-10-28] MEDS: fentaNYL INJ 100 MCG/2 ML AMP IV PRN ×2 (03:48→09:46)
[2022-10-28 06:20] LABS: POTASSIUM 3.8 MMOL/L (3.6-5.0)
[2022-10-28 06:30] LABS: CALCIUM 4.7 MG/DL (8.5-10.1); MAGNESIUM 0.6 MG/DL (1.6-2.4)
[2022-10-28] MEDS: inSUlin ASPART (NovoLOG) 1 UNIT/0.01 ML (CHARGE PER UNIT) SC SCH ×4 (06:57→20:32)
[2022-10-28 08:17] VITALS: BP 127/59
[2022-10-28 08:25] LABS: ALBUMIN 2.5 GM/DL (3.2-4.5)
[2022-10-28 08:26] LABS: POTASSIUM 3.7 MMOL/L (3.6-5.0)
--- NOTE | 2022-10-28 08:26 | History & Physical ---
History of Present Illness History of Present Illness Reason for visit/HPI Pt is an 87 y/o female who is known to me from clinic. She reports that she has had a few falls recently - with the most recent fall arising from an event where she was bending over in her room to moss picker a book from the floor. She was using a walker to lean on, and as she bent over to moss picker the book, and the walker "folded up" and she fell to the ground landing on her left knee. She was helped up by staff at the assisted living and waited a day until the pain worsened to present to the ER. Date of Admission Oct 27, 2022 at 22:58 Date Seen by a Provider: Oct 28, 2022 Time Seen by a Provider: 08:25 I consulted on this patient on 10/28/22 08:25 Attending Physician Sachin Larios MD Admitting Physician Admitting Physician: Crystal Payne DO Attending Physician: Sachin Larios MD Consult Allergies and Home Medications Allergies Coded Allergies: No Known Drug Allergies (Verified , 05/06/19) Patient Home Medication List Home Medication List Reviewed: Yes Amlodipine Besylate (Amlodipine Besylate) 10 Mg Tablet, 10 MG PO DAILY, (Reported) Entered as Reported by: ABBY VAZQUEZ on 11/16/15 1717 Apixaban (Eliquis) 5 Mg Tablet, 5 MG PO BID, (Reported) Entered as Reported by: KEITH ROBLEDO on 03/02/21 1454 Last Action: Continued Atorvastatin Calcium (Atorvastatin Calcium) 80 Mg Tablet, 80 MG PO HS, (R eported) Entered as Reported by: KEITH ROBLEDO on 03/02/21 1454 Last Action: Held Carbidopa/Levodopa (Carbidopa-Levodopa 25-100 Tab) 25 Mg-100 Mg Tablet, 1 EA PO BID, (Reported) Entered as Reported by: DIANA RASHID on 01/24/22 1151 Last Action: Continued Cholestyramine (with Sugar) (Cholestyramine Powder) 4 Gram Powder, 4 GM PO 0900, (Reported) Entered as Reported by: DIANA RASHID on 01/24/22 1151 Last Action: Held Furosemide (Lasix) 20 Mg Tablet, 20 MG PO Q48H Prescribed by: GIULIANO BLACKWELL on 01/25/22 1323 Gabapentin (Neurontin) 300 Mg Capsule, 300 MG PO BID, (Reported) Entered as Reported by: DIANA RASHID on 01/24/22 115 Last Action: Continued Gabapentin (Gabapentin) 400 Mg Capsule, 400 MG PO 1200, (Reported) Entered as Reported by: DIANA RASHID on 01/24/221150 Last Action: Continued Hydrocortisone (Anusol-Hc) 2.5 % Cream..g., 1 APPLIC RC TID PRN for ITCHING, (Reported) Entered as Reported by: DIANA RASHID on 01/24/22 115 Hydroxyzine HCl (Hydroxyzine HCl) 25 Mg Tablet, 25 MG PO Q8H PRN for ANXIETY, (Reported) Entered as Reported by: KEITH ROBLEDO on 03/02/21 145 Insulin Aspart (Novolog Flexpen) 100 Unit/Ml (3 Ml) Solution, 12 UNITS SQ BID W/MEALS, (Reported) Entered as Reported by: KEITH ROBLEDO on 03/02/211453 Insulin Aspart (Novolog) 100 Unit/Ml Susp, 15 UNIT SQ 1130 W/ LUNCH, (Reported) Entered as Reported by: DIANA RASHID on 01/24/221150 Insulin Detemir (Levemir Flextouch) 100 Unit/Ml (3 Ml) Insuln.pen, 25 UNITS SQ HS, (Reported) Entered as Reported by: KEITH ROBLEDO on 03/02/211453 Levothyroxine Sodium (Synthroid) 75 Mcg Tablet, 75 MCG PO DAILY, (Reported) Entered as Reported by: KEITH ROBLEDO on 03/02/211453 Last Action: Held Magnesium Oxide (Magnesium) 400 Mg Magnesium Tablet, 400 MG PO DAILY, (Reported) Entered as Reported by: DIANA RASHID on 01/24/22 115 Methyl Salicylate/Menth/Camph (Muscle Rub Ultra Str Cream) 30 %-10 %-4 % Cream..g., 1 APPLIC TP TID PRN for PAIN-BREAKTHROUGH, (Reported) Entered as Reported by: DIANA RASHID on 01/24/22 115 Omeprazole (Omeprazole) 20 Mg Capsule.dr, 20 MG PO DAILY, (Reported) Entered as Reported by: DIANA RASHID on 01/24/22 115 Oxycodone HCl (Oxycodone HCl) 10 Mg Tablet, 10 MG PO Q8H PRN for PAIN-SEVERE (8- 10), (Reported) Entered as Reported by: DIANA RASHID on 01/24/22 115 Potassium Chloride (Potassium Chloride) 10 Meq Capsule.er, 10 MEQ PO Q48H Prescribed by: GIULIANO BLACKWELL on 01/25/22 1323 Pramipexole Di-HCl (Pramipexole Dihydrochloride) 0.125 Mg Tablet, 0.125 MG PO 1700, (Reported) Entered as Reported by: DIANA RASHID on 01/24/22 115 Last Action: Continued Tolterodine Tartrate (Tolterodine Tartrate ER) 4 Mg Cap.er.24h, 4 MG PO DAILY, (Reported) Entered as Reported by: ABBY VAZQUEZ on 11/16/15 171 Venlafaxine HCl (Venlafaxine HCl) 37.5 Mg Tab, 37.5 MG PO DAILY, (Reported) Entered as Reported by: DIANA RASHID on 01/24/22 115 Last Action: Reviewed Discontinued Medications Doxycycline Hyclate (Doxycycline Hyclate) 100 Mg Tablet, 100 MG PO BID@ Prescribed by: CHOLO HUANG on 01/25/22 1640 Last Action: Discontinued Metformin HCl (Metformin HCl) 500 Mg Tablet, 500 MG PO BID, (Reported) Entered as Reported by: DIANA RASHID on 01/24/221150 Last Action: Discontinued Past Ysttaat-Qhddcy-Qvdtqb Hx Patient Social History Marrital Status: Living Status: [place] with spouse Employed/Student: retired Tobacco Use?: No Smoking Status: Never a Smoker Use of E-Cig and/or Vaping dev: No Substance use?: No Alcohol Use?: No Pt feels they are or have been: No Immunizations Up To Date Date of Influenza Vaccine: Apr 20, 2011 First/Initial COVID19 Vaccinat: RECEIVED, UNK WHEN Second COVID19 Vaccination Wally: RECEIVED, UNK WHEN Tetanus Booster (TDap): Unknown Hepatitis A: No Hepatitis B: No PED Vaccines UTD: No Date of Pneumonia Vaccine: Aug 21, 2009 Current Status status: No status: No Advance Directives: No Communicates: Verbally Primary Language: Yemeni Preferred Spoken Language: Yemeni Is interpretation needed?: No Sensory deficits: Vision impairment, Hearing impairment Implanted or Applied Medical D: Orthopedic hardware, Other Past Medical History Surgeries: Abdominal, Appendectomy, Gallbladder, Hysterectomy, Joint Replacement, Orthopedic, Tonsillectomy Atrial Fibrillation, Chronic Edema/Swelling, High Cholesterol, Hypertension Neuropathy Sexually Transmitted Disease: No HIV/AIDS: No Gastroesophageal Reflux, Hiatal Hernia, Irritable Bowel Degenerate Disk Disease, Arthritis, Chronic Back Pain Diabetes, Insulin dep, Hypothyroidsim Cataract Loss of Vision: Denies Hearing Impairment: Denies Anxiety, Depression 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) Blood Disorders: No Family Medical History Reviewed and Corrections made Cancer 03 MOTHER (STOMACH COLON ESOPHAGEAL) Cancer of colon 03 MOTHER 09 SISTER Family history: Cardiovascular disease 09 SISTER (HAS PACEMAKER) Family history: Diabetes mellitus 03 FATHER Myocardial infarction 03 FATHER No Family History of: Abdominal aortic aneurysm Bryan's disease Alcoholism Aphasia Cataract Chest pain Congenital heart disease Congestive heart failure Cystic fibrosis Dementia Dysphagia Family history: Allergy Family history: Alzheimer's disease Family history: Arthritis Family history: Asthma Family history: Coronary thrombosis Family history: Gastrointestinal disease Family history: Glaucoma Family history: Hypertension Family history: Osteoporosis Family history: Thyroid disorder Headache Hearing loss Heart disease Hereditary disease History of - anemia History of - respiratory disease History of drug abuse Human immunodeficiency virus (HIV) seropositivity Hypercholesterolemia Infertile Kidney disease Malignant neoplasm of lung Parkinson's disease Prostate cancer Psychotic disorder Seizure disorder Stroke Tuberculosis Visual impairment Hypertension, Other Conditions/Hx (anxiety/depression) Review of Systems Constitutional: No chills, No fever, No malaise EENTM: No hoarseness, No throat pain Respiratory: No cough, No dyspnea on exertion, No short of breath Cardiovascular: No chest pain, No palpitations Gastrointestinal: No abdominal pain, No constipation; diarrhea; No nausea, No vomiting Genitourinary: frequency, incontinence : No Musculoskeletal: back pain, joint pain (left knee pain) Psychiatric/Neurological: Denies Anxiety; Weakness All Other Systems Reviewed Negative Unless Noted: Yes Physical Exam Vital Signs Vital Signs - First Documented 10/27/22 23:25 O2 Flow Rate 1.50 Capillary Refill : Height, Weight, BMI Height: 5'2.00" Weight: 224lbs. 0.9oz. [id number]; 43.16 BMI Method:Stated General Appearance: WD/WN, Mild Distress (due to pain) HEENT: PERRL/EOMI, Pharynx Normal Neck: Full Range of Motion, Non Tender, Supple Respiratory: Chest Non Tender, Lungs Clear, Normal Breath Sounds, No Accessory Muscle Use Cardiovascular: Regular Rate, Rhythm, Normal Peripheral Pulses Gastrointestinal: Normal Bowel Sounds, No Pulsatile Mass, Non Tender, Soft, Other (feces from jean region to lower thighs liquid in nature) Rectal: Deferred Extremity: Pedal Edema (trace bilateral lower legs to mid calves), Other (excoriation on knees bilaterally with skinned knee on left, ttp over knee with swelling) Neurologic/Psychiatric: Alert, Oriented x3, Normal Mood/Affect Skin: Other (excoriation, multiple sites from head to lower legs) Assessment/Plan Assessment and Plan Acute pain in left knee Hypocalcemia Hypomagnesemia Chronic Insulin Dependent diabetes mellitus Chronic Diarrhea Chronic hypertension Acute pain in left knee - MRI ordered since we have concern for possible compression of knee joint voltaren gel ordered as well, monitor symptoms. Hypocalcemia and Hypomagnesemia - replace with IV magnesium, oral calcium, monitor labs in morning. Chronic Insulin Dependent diabetes mellitus - waiting on med reconcillation - use sliding scale. Chronic Diarrhea - hold questran for now, hold metformin, monitor stool, may consider stool studies if not improving. Chronic hypertension - waiting on reconciliation of her meds, monitor pressure. dvt prophylaxis with eliquis gi prophylaxis with ppi Admission Diagnosis Acute pain in left knee Hypocalcemia Hypomagnesemia Chronic Insulin Dependent diabetes mellitus Chronic Diarrhea Chronic hypertension Admission Status: Observation SACHIN LARIOS MD Oct 28, 2022 08:26
[2022-10-28 08:28] LABS: TOTAL PROTEIN 6.2 GM/DL (6.4-8.2)
[2022-10-28 08:30] LABS: BILIRUBIN,TOTAL 0.5 MG/DL (0.1-1.0)
[2022-10-28 08:32] LABS: CREATININE SERUM 0.97 MG/DL (0.60-1.30)
[2022-10-28 08:34] LABS: CALCIUM 4.6 MG/DL (8.5-10.1)
[2022-10-28] MEDS: CALCIUM CARB + VIT D 600 MG (CALCARB + D) TAB PO SCH ×3 (09:41→17:22)
[2022-10-28 11:49] VITALS: BP 130/61
[2022-10-28] MEDS: DICLOFENAC 1% GEL 100 GM (VOLTAREN) TUBE TOP SCH ×4 (12:05→20:33)
--- NOTE | 2022-10-28 14:47 | Diagnostic Imaging Report ---
PROCEDURE: MRI left joint lower extremity without contrast. TECHNIQUE: Multiplanar, multisequence non contrast-enhanced MRI of the left lower extremity was accomplished. INDICATION: Left knee pain. COMPARISON: None available. FINDINGS: Medial compartment: There is a broad region of full-thickness articular cartilage loss throughout the weightbearing aspect of the medial compartment. Degenerative macerated tearing is present throughout the free edge of the medial meniscus. The posterior horn head may have a complete radial tear near its root insertion. Lateral compartment: The majority of the lateral compartment has high-grade partial-thickness articular cartilage loss. Degenerative free edge tearing throughout the medial meniscus. Patellofemoral compartment: Diffuse full-thickness articular cartilage loss throughout the patellofemoral compartment. Tendons and ligaments: The ACL and PCL are intact. The medial and lateral collateral ligamentous complexes are intact. Extensor mechanism is normal. Soft tissues: Large knee joint effusion. Small Beckham's cyst. IMPRESSION: 1. Severe tricompartmental osteoarthritis. 2. There is associated degenerative tearing in both the medial and lateral menisci. 3. Large knee joint effusion, likely reactive in nature. Dictated by: Dictated on workstation # [id number]
[2022-10-28 15:17] VITALS: BP 145/65
[2022-10-28 19:54] VITALS: BP 136/62
[2022-10-28] MEDS ORDERED: CALCIUM CARB + VIT D 600 MG (CALCARB + D) TAB PO ONE (22:00)
[2022-10-29] VITALS (7 sets, daily range): BP systolic 92–144; BP diastolic 51–65
[2022-10-29] MEDS: inSUlin ASPART (NovoLOG) 1 UNIT/0.01 ML (CHARGE PER UNIT) SC SCH ×4 (05:49→20:41)
[2022-10-29] MEDS: CATHETER FLUSH 10 ML SYR IVP SCH ×3 (05:49→20:41)
[2022-10-29 05:55] LABS: HEMATOCRIT 31 % (35-52); HEMOGLOBIN 9.5 g/dL (11.5-16.0); MEAN CORPUSCULAR HEMOGLOBIN 27 pg (25-34); MEAN CORPUSCULAR HGB CONC 31 g/dL (32-36); MEAN CORPUSCULAR VOLUME 86 fL (80-99); MEAN PLATELET VOLUME 11.9 fL (9.0-12.2); PLATELET COUNT 152 10^3/uL (130-400); WHITE BLOOD COUNT 7.7 10^3/uL (4.3-11.0)
[2022-10-29 06:16] LABS: CREATININE SERUM 1.03 MG/DL (0.60-1.30); MAGNESIUM 1.4 MG/DL (1.6-2.4); POTASSIUM 3.4 MMOL/L (3.6-5.0)
[2022-10-29 06:19] LABS: CALCIUM 5.1 MG/DL (8.5-10.1)
--- NOTE | 2022-10-29 08:32 | Progress Note ---
Subjective Subjective Date Seen by Provider: Oct 29, 2022 Time Seen by Provider: 08:35 Pt reports that she continues to have pain in her left knee, ankle - she reports that it seems to be a little a bit better than in the knee, but she is now noticing the ankle/foot discomfort. Review of Systems General: No Chills; Fatigue HEENT: No Dysphasia Pulmonary: No Dyspnea, No Cough Cardiovascular: No: Chest Pain, Palpitations Gastrointestinal: Diarrhea; No: Nausea, Abdominal Pain Musculoskeletal: leg pain (left knee, left ankle pain) Neurological: Weakness; No: Confusion Objective Exam Vital Signs Vital Signs Date Time Temp Pulse Resp B/P (MAP) Pulse Ox O2 Delivery O2 Flow Rate FiO2 10/29/22 03:44 37.1 64 18 124/57 (79) 94 Room Air 10/29/22 01:00 60 10/29/22 00:24 37.1 66 18 114/56 (75) 93 Room Air 10/28/22 20:30 Room Air 10/28/22 19:54 37.1 77 20 136/62 (86) 92 Room Air 10/28/22 19:00 80 10/28/22 15:17 37.2 62 18 145/65 (91) 94 Room Air 10/28/22 13:03 69 10/28/22 11:49 37.0 70 18 130/61 (84) 94 Room Air I & O 10/29/22 06:59 Intake Total 1590 ml Balance 1590 ml General Appearance: No Apparent Distress, WD/WN HEENT: PERRL/EOMI, Pharynx Normal Neck: Full Range of Motion, Supple Respiratory: Chest Non Tender, Lungs Clear, Normal Breath Sounds, No Accessory Muscle Use Cardiovascular: Regular Rate, Rhythm Gastrointestinal: Normal Bowel Sounds, Non Tender, Soft Extremity: Normal Capillary Refill, Pedal Edema (trace) Neurologic/Psychiatric: Alert, Oriented x3, No Motor/Sensory Deficits, Normal Mood/Affect Results Lab Laboratory Tests 10/28/22 12:40: Glucometer 192H 10/28/22 15:22: Glucometer 178H 10/28/22 20:21: Glucometer 241H 10/29/22 05:07: Sodium Level 133L, Potassium Level 3.4L, Chloride Level 105, Carbon Dioxide Level 16L, Anion Gap 12, Blood Urea Nitrogen 17, Creatinine 1.03, Estimat Glomerular Filtration Rate 53, BUN/Creatinine Ratio 17, Glucose Level 164H, Calcium Level 5.1*L, Magnesium Level 1.4L 10/29/22 05:14: Glucometer 178H 10/29/22 05:20: White Blood Count 7.7, Red Blood Count 3.56L, Hemoglobin 9.5L, Hematocrit 31L, Mean Corpuscular Volume 86, Mean Corpuscular Hemoglobin 27, Mean Corpuscular Hemoglobin Concent 31L, Red Cell Distribution Width 17.0H, Platelet Count 152, Mean Platelet Volume 11.9 Assessment/Plan Assessment/Plan Admission Dx Acute pain in left knee Hypocalcemia Hypomagnesemia Chronic Insulin Dependent diabetes mellitus Chronic Diarrhea Chronic hypertension Assessment and Plan Acute pain in left knee Hypocalcemia Hypomagnesemia Chronic Insulin Dependent diabetes mellitus Chronic Diarrhea Chronic hypertension Elevated PTH Left ankle pain Acute pain in left knee, Left ankle pain - MRI ordered since we have concern for possible compression of knee joint - see report as follows: IMPRESSION: 1. Severe tricompartmental osteoarthritis. 2. There is associated degenerative tearing in both the medial and lateral menisci. 3. Large knee joint effusion, likely reactive in nature. voltaren gel ordered as well, monitor symptoms. - physical and occupational therapy ordered -discussed with pt and her dtr in the room - they were in agreement with pt going to halfway for therapy - however, her DTR - Pauly reports that her mom will not go to a halfway (as per previous conversations they have had). She would like to try home health therapy at her AL facility - I have advised Pauly to talk to family welfare social work professor to see what time frame they may have to do a trial of home health therapy at the facility and still potentially have the opportunity - should she fail the out patient home health, to consider moving to a halfway for therapy. Hypocalcemia and Hypomagnesemia Elevated PTH, low vitamin D - replace with IV magnesium, oral calcium, adding Vitamin D daily with a large weekly dose as well, - still low this morning we will continue with supplementation - and monitor labs in morning. Chronic Insulin Dependent diabetes mellitus - waiting on med reconcillation - use sliding scale. - added levemir at lower than usual home regimen Chronic Diarrhea - hold questran for now, hold metformin, monitor stool, cdiff, culture, o and p stool studies pending. Chronic hypertension - waiting on reconciliation of her meds, monitor pressure. dvt prophylaxis with eliquis gi prophylaxis with ppi Admission Dx Acute pain in left knee Hypocalcemia Hypomagnesemia Chronic Insulin Dependent diabetes mellitus Chronic Diarrhea Chronic hypertension Clinical Quality Measures Admission Status Admission Dx Acute pain in left knee Hypocalcemia Hypomagnesemia Chronic Insulin Dependent diabetes mellitus Chronic Diarrhea Chronic hypertension SACHIN MONTGOMERY MD Oct 29, 2022 08:32
[2022-10-29] MEDS: SINEMET 25/100 (CARBIDOPA/LEVODOPA) TAB PO SCH ×2 (09:07→20:41)
[2022-10-29] MEDS: HYDROcodone/APAP 5 MG/325 MG (LORTAB) TAB PO PRN (09:07)
[2022-10-29] MEDS: GABAPENTIN 300 MG (NEURONTIN) CAP PO SCH ×2 (09:07→20:41)
[2022-10-29] MEDS: MAGNESIUM 1 GM/100 ML IVPB 100 ML IV SCH ×2 (09:07→10:13)
[2022-10-29] MEDS: CALCIUM CARB + VIT D 600 MG (CALCARB + D) TAB PO SCH ×3 (09:08→17:36)
[2022-10-29] MEDS: APIXABAN 5 MG (ELIQUIS) TABLET PO SCH ×2 (09:08→20:41)
[2022-10-29] MEDS: DICLOFENAC 1% GEL 100 GM (VOLTAREN) TUBE TOP SCH ×4 (09:08→20:42)
[2022-10-29] MEDS: GABAPENTIN 400 MG (NEURONTIN) CAP PO SCH (11:18)
--- NOTE | 2022-10-29 12:47 | Diagnostic Imaging Report ---
INDICATION: LEFT ANKLE PAIN POST FALL TECHNIQUE: Three views of the left ankle CORRELATION STUDY: Left foot 03/05/2021 FINDINGS: Marked pes planus alignment generalized osteopenia. There is rather significant distortion and loss of normal appearing subtalar joints, progressed from prior. Definitive fracture of the ankle is not demonstrated. However, there is a rather significant distortion and narrowing appearing to be likely chronic at the ankle mortise with tibiotalar relationship. Loss of normal smooth cortical margin. Prominent plantar calcaneal spur. Prominent soft tissue edema. Prominent plantar calcaneal spur. IMPRESSION: Negative for acute bony abnormality of the ankle. Likely marked chronic either posttraumatic and/or degenerative changes of the ankle and foot. Progressive distortion of subtalar joint, tibiotalar relationship as well as progressive pes planus alignment. Given the rather marked chronic distortion, if further assessment for potential occult fracture is desired, CT would be recommended. Dictated by: Dictated on workstation # [id number]
[2022-10-29] MEDS: diphenhydrAMINE 2% 30 GM CR (ALLERGY CREAM) TOP PRN (14:02)
--- NOTE | 2022-10-29 14:52 | Physical Therapy Evaluation ---
PT Evaluation-General Medical Diagnosis Admission Date Oct 29, 2022 at 08:25 Medical Diagnosis: Intractable pain in left leg Onset Date: Oct 28, 2022 Therapy Diagnosis Therapy Diagnosis: Gait deficit Height/Weight Height (Feet): 5 Height (Inches): 2.00 Weight (Pounds): 224 Weight (Ounces): 0.9 Precautions Precautions/Isolations: Fall Prevention, Standard Precautions Weight Bear Status Right Lower Extremity: Right Full Weight Bearing Left Lower Extremity: Left Full Weight Bearing Referral Physician: Dr. Larios Reason for Referral: Evaluation/Treatment Medical History Pertinent Medical History: DM, GERD, HTN, Hypothroidism Reviewed History: Yes Social History Home: Assisted Living Current Living Status: Alone Entry Into Home: Level Entry Prior Prior Level of Function SCALE: Activities may be completed with or without assistive devices. 7-[place]-llpozmn completes the activity by him/herself with no assistance from a helper. 5-Set-up or Clean-up Assistance-helper sets up or cleans up; patient completes activity. [place] assists only prior to or following the activity. 4-Supervision or Touching Assistance-helper provides verbal cues and/or touching/steadying and/or contact guard assistance as patient completes activity . Assistance may be provided throughout the activity or intermittently. 3-Partial/Moderate Assistance-helper does LESS THAN HALF the effort. [place] lifts, holds or supports trunk or limbs, but provides less than half the effort. 2-Substantial/Maximal Assistance-helper does MORE THAN HALF the effort. [place] lifts or holds trunk or limbs and provides more than half the effort. 9-Wqwfdctkk-wuieag does ALL the effort. Patient does none of the effort to complete the activity. Or, the assistance of 2 or more helpers is required for the patient to complete the activity. If activity was not attempted, code reason: 7-Patient Refused. 9-Not Applicable-not attempted and the patient did not perform the activity before the current illness, exacerbation or injury. 10-Not Attempted due to Environmental Limitations-(lack of equipment, weather restraints, etc.). 88-Not Attempted due to Medical Conditions or Safety Concerns. Bed Mobility: 6 Transfers (B,C,W/C): 6 Gait: 6 Indoor Mobility (Ambulation): Independent Prior Devices Use: Walker PT Evaluation-Current Subjective Patient sitting on EOB upon PT arrival, daughter in the room, agreeable to treatment. Rates pain at 10 /10 with movement in the left LE Objective Patient Orientation: Person, Place, Time, Situation Attachments: IV ROM/Strength ROM Lower Extremities WFLs all plans BLEs Strength Lower Extremities 3/5 BLEs all planes Sensory Vision: Wears Glasses Hearing: Impaired Sensation Right Lower Extremit: Impaired Sensation Left Lower Extremity: Impaired Sensation Lower Extremities Patient reports numbness in her feet from DPN. Transfers Roll Left to Right (QC): 3 Sit to Lying (QC): 3 Lying to Sitting/Side of Bed(Q: 3 Sit to Stand (QC): 2 Chair/Lwt-ih-Bjojd Xfer(QC): 2 Gait Does the Patient Walk?: Yes Mode of Locomotion: Walk Anticipated Mode of Locomotion: Walk Walk 10 feet (QC): 2 Distance: 12 feet Gait Assistive Device: FWW Balance Sitting Static: Fair Sitting Dynamic: Fair Standing Static: Poor Standing Dynamic: Poor Assessment/Needs Patient tolerated treatment poorly. She initially started ambulation well, however after 3-4 feet she began to become anxious and said her legs were giving out. With encouragement patient ambulates 12 feet with FWW, with max A. Patient in bed post treatment with all needs met, nursing notified, call light in hand. Rehab Potential: Fair PT Fdc Goals Fdc Goals PT Surveyor'S Assistant Goals Time Frame: Nov 16, 2022 Roll Left & Right (QC): 5 Sit to Lying (QC): 5 Lying-Sitting on Side/Bed(QC): 5 Sit to Stand (QC): 5 Chair/Jan-mj-Hqwut Xfer(QC): 5 Toilet Transfer (QC): 5 Car Transfer (QC): 5 Does the Patient Walk: Yes Walk 10 feet (QC): 4 Walk 50ft with 2 Turns (QC): 4 Walk 150 ft (QC): 4 PT Plan Problem List Problem List: Activity Tolerance, Functional Strength, Safety, Balance, Gait, Transfer, Bed Mobility, ROM Treatment/Plan Treatment Plan: Continue Plan of Care Treatment Plan: Bed Mobility, Education, Functional Activity Jaida, Functional Strength, Group Therapy, Gait, Safety, Therapeutic Exercise, Transfers Treatment Duration: Nov 16, 2022 Frequency: 6 times per week Estimated Hrs Per Day: .25 hour per day Safety Risks/Education Patient Education: Gait Training, Transfer Techniques Teaching Recipient: Patient Teaching Methods: Demonstration, Discussion Response to Teaching: Verbalize Understanding, Return Demonstration Time Time In: 1426 Time Out: 1440 DATE: Oct 29, 2022 Total Billed Treatment Time: 14 Total Billed Treatment Visit, FORTINO CHUA PT Oct 29, 2022 14:52
--- NOTE | 2022-10-29 15:19 | Occupational Therapy Eval ---
OT Evaluation-General/PLF Medical Diagnosis Admission Date Oct 29, 2022 at 08:25 Medical Diagnosis: Intractable pain in left leg Onset Date: Oct 28, 2022 Therapy Diagnosis Therapy Diagnosis: weakness, pain Height/Weight Height (Feet): 5 Height (Inches): 2.00 Weight (Pounds): 224 Weight (Ounces): 0.9 Precautions Precautions/Isolations: Fall Prevention, Standard Precautions Weight Bear Status Weight Bearing Restriction: Weight Bearing/Tolerated Referral Physician: Dr. Larios Referral Reason: Activity Tolerance, Self Care, Evaluation/Treatment, Strengthening/ROM Medical History Pertinent Medical History: DM, GERD, HTN, Hypothroidism Current History Lives at [facility], ambulating w/ 4ww, leaned over to knot picker cloth item off floor and fell to knee. Social History Home: Assisted Living Current Living Status: Alone Entry Into Home: Level Entry ADL-Prior Level of Function SCALE: Activities may be completed with or without assistive devices. 9-Tjrbmhgyxk-agnjgyd completes the activity by him/herself with no assistance from a helper. 5-Set-up or Clean-up Assistance-helper sets up or cleans up; patient completes activity. [place] assists only prior to or following the activity. 4-Supervision or Touching Assistance-helper provides verbal cues and/or touching/steadying and/or contact guard assistance as patient completes activity. Assistance may be provided throughout the activity or intermittently. 3-Partial/Moderate Assistance-helper does LESS THAN HALF the effort. [place] lifts, holds or supports trunk or limbs, but provides less than half the effort. 2-Substantial/Maximal Assistance-helper does MORE THAN HALF the effort. [place] lifts or holds trunk or limbs and provides more than half the effort. 3-Bsvpbmozm-efrmop does ALL the effort. Patient does none of the effort to complete the activity. Or, the assistance of 2 or more helpers is required for the patient to complete the activity. If activity was not attempted, code reason: 7-Patient Refused. 9-Not Applicable-not attempted and the patient did not perform the activity before the current illness, exacerbation or injury. 10-Not Attempted due to Environmental Limitations-(lack of equipment, weather restraints, etc.). 88-Not Attempted due to Medical Conditions or Safety Concerns. ADL PLOF Comments inconsistent report from patient and family member level of care w/ ADLS provided at [facility], OT recorded patient report. Self Care: Independent Functional Cognition: Independent DME/Equipment: Bath Chair, Grab Bars, Shower, Shower Hose Getter Operator, Tall Toilet Drive Self: No OT Current Status Subjective Agreeable to OT, demonstrated distraction w/ tasks and required repeat instruction for performance. Mental Status/Objective Patient Orientation: Person, Place, Time, Situation Current Glasses/Contacts: Yes Hearing Aids: Yes Upper Extremity ROM Excessive soft tissue, limits joint approximation Upper Extremity Coordination fair Upper Extremity Sensation impaired BLES d/t DM neuropathy, inversion of feet, callus feet Upper Extremity Strength 3/5 BUE multiple areas of skin irritation, some open and bleeding, family member reports bed bug issue at [facility] ADL-Treatment Eating (QC): 5 Oral Hygiene (QC): 4 Shower/Bathe Self (QC): 88 Upper Body Dressing (QC): 3 Lower Body Dressing (QC): 1 On/Off Footwear (QC): 1 Toileting Hygiene (QC): 1 Education OT Patient Education: Disease process, Modified ADL techniques, Progress toward Goal/Update tx plan, Purpose of tx/functional activities, Reviewed precautions, Rehab process, Safety issues, Transfer techniques, Use of adapted equipment Teaching Recipient: Patient, Family Teaching Methods: Demonstration, Discussion Response to Teaching: Reinforcement Needed OT Buckle Assembler Goals Buckle Assembler Goals Eating (QC): 6 Oral Hygiene (QC): 5 Toileting Hygiene (QC): 4 Shower/Bathe Self (QC): 3 Upper Body Dressing (QC): 4 Lower Body Dressing (QC): 3 On/Off Footwear (QC): 3 1=Demonstrate adherence to instructed precautions during ADL tasks. 2=Patient will verbalize/demonstrate understanding of assistive devices/modifications for ADL. 3=Patient will improve strength/tolerance for activity to enable patient to perform ADL's. OT Education/Plan Problem List/Assessment Assessment: Decreased Activ Tolerance, Decreased Safety Aware, Decreased UE Strength, Dependent Transfers, Impaired Bed Mobility, Impaired Coordination, Impaired Funct Balance, Impaired Self-Care Skills, Restricted Funct UE ROM Discharge Recommendations Plan/Recommendations: Continue POC Treatment Plan/Plan of Care Treatment,Training & Education: Yes Patient would benefit from OT for education, treatment and training to promote independence in ADL's, mobility, safety and/or upper extremity function for ADL's. Plan of Care: ADL Retraining, Concurrent Therapy, Functional Mobility, Group Exercise/Act as Ind, UE Funct Exercise/Act Treatment Duration: Nov 09, 2022 Frequency: 3 times per week (3-5 times per week) Estimated Hrs Per Day: .25 hour per day Agreement: Yes Rehab Potential: Fair spin in bed all needs met Time Start Time: 14:10 Stop Time: 14:37 DATE: Oct 29, 2022 Total Time Billed (hr/min): 27 Billed Treatment Time [facility] 27 min SERAFIN VASQUEZ OT Oct 29, 2022 15:19
[2022-10-29] MEDS: PRAMIPEXOLE 0.125 MG (MIRAPEX) TABLET PO SCH (17:36)
[2022-10-30] MEDS: HYDROcodone/APAP 5 MG/325 MG (LORTAB) TAB PO PRN ×2 (00:44→20:22)
[2022-10-30 03:48] VITALS: BP 119/61
[2022-10-30 05:28] LABS: HEMATOCRIT 32 % (35-52); HEMOGLOBIN 9.9 g/dL (11.5-16.0); MEAN CORPUSCULAR HEMOGLOBIN 26 pg (25-34); MEAN CORPUSCULAR HGB CONC 31 g/dL (32-36); MEAN CORPUSCULAR VOLUME 85 fL (80-99); MEAN PLATELET VOLUME 11.8 fL (9.0-12.2); PLATELET COUNT 170 10^3/uL (130-400); WHITE BLOOD COUNT 5.5 10^3/uL (4.3-11.0)
[2022-10-30 05:51] LABS: ALBUMIN 2.4 GM/DL (3.2-4.5); BILIRUBIN,TOTAL 0.4 MG/DL (0.1-1.0); CREATININE SERUM 0.99 MG/DL (0.60-1.30); MAGNESIUM 1.9 MG/DL (1.6-2.4); TOTAL PROTEIN 6.2 GM/DL (6.4-8.2)
[2022-10-30 06:08] LABS: CALCIUM 5.4 MG/DL (8.5-10.1)
[2022-10-30] MEDS: CATHETER FLUSH 10 ML SYR IVP SCH ×3 (06:10→20:23)
[2022-10-30] MEDS: inSUlin ASPART (NovoLOG) 1 UNIT/0.01 ML (CHARGE PER UNIT) SC SCH ×4 (06:10→20:19)
[2022-10-30] MEDS ORDERED: VITAMIN D3 10 MCG (400 UNITS) TABLET PO SCH (07:00)
[2022-10-30] MEDS: SINEMET 25/100 (CARBIDOPA/LEVODOPA) TAB PO SCH ×2 (08:17→20:22)
[2022-10-30] MEDS: APIXABAN 5 MG (ELIQUIS) TABLET PO SCH ×2 (08:17→20:22)
[2022-10-30] MEDS: CALCIUM CARB + VIT D 600 MG (CALCARB + D) TAB PO SCH ×3 (08:17→17:06)
[2022-10-30] MEDS: GABAPENTIN 300 MG (NEURONTIN) CAP PO SCH ×2 (08:17→20:22)
[2022-10-30] MEDS: DICLOFENAC 1% GEL 100 GM (VOLTAREN) TUBE TOP SCH ×4 (08:18→20:23)
[2022-10-30 08:26] VITALS: BP 132/68
--- NOTE | 2022-10-30 08:29 | Progress Note ---
Subjective Review of Systems General: No Chills; Fatigue HEENT: No Dysphasia Pulmonary: No Dyspnea, No Cough Cardiovascular: No: Chest Pain, Palpitations Gastrointestinal: Diarrhea; No: Nausea, Abdominal Pain Musculoskeletal: leg pain (left knee, left ankle pain) Neurological: Weakness; No: Confusion All Other Systems Reviewed All Other Systems Reviewed: Yes Objective Exam Vital Signs Vital Signs Date Time Temp Pulse Resp B/P (MAP) Pulse Ox O2 Delivery O2 Flow Rate FiO2 10/30/22 07:29 60 10/30/22 03:48 36.5 66 20 119/61 (80) 96 Room Air 0.00 0.00 10/30/22 01:00 60 10/29/22 23:05 37.0 66 20 125/63 (83) 96 Room Air 0.00 0.00 10/29/22 20:00 Room Air 10/29/22 19:51 37.2 66 20 105/55 (72) 95 Room Air 10/29/22 19:00 65 10/29/22 16:16 37.3 66 20 144/65 (91) 95 Room Air 10/29/22 12:26 73 10/29/22 11:14 37.5 64 20 92/51 (65) 93 Room Air 10/29/22 10:17 Room Air 10/29/22 09:00 37.1 67 18 144/62 (89) 94 Room Air I & O 10/30/22 07:00 Intake Total 1260 ml Output Total 100 ml Balance 1160 ml General Appearance: No Apparent Distress, WD/WN HEENT: PERRL/EOMI, Pharynx Normal Neck: Full Range of Motion, Supple Respiratory: Chest Non Tender, Lungs Clear, Normal Breath Sounds, No Accessory Muscle Use Cardiovascular: Regular Rate, Rhythm Gastrointestinal: Normal Bowel Sounds, Non Tender, Soft Rectal: Deferred Extremity: Normal Capillary Refill, Pedal Edema (trace) Neurologic/Psychiatric: Alert, Oriented x3, No Motor/Sensory Deficits, Normal Mood/Affect Skin: Other (excoriation, multiple sites from head to lower legs) Results Lab Laboratory Tests 10/29/22 11:08: Glucometer 250H 10/29/22 15:51: Glucometer 244H 10/29/22 19:41: Glucometer 192H 10/30/22 04:58: Glucometer 185H 10/30/22 05:12: White Blood Count 5.5, Red Blood Count 3.75L, Hemoglobin 9.9L, Hematocrit 32L, Mean Corpuscular Volume 85, Mean Corpuscular Hemoglobin 26, Mean Corpuscular Hemoglobin Concent 31L, Red Cell Distribution Width 17.2H, Platelet Count 170, Mean Platelet Volume 11.8, Sodium Level 132L, Potassium Level 4.0, Chloride Level 105, Carbon Dioxide Level 16L, Anion Gap 11, Blood Urea Nitrogen 20H, Creatinine 0.99, Estimat Glomerular Filtration Rate 55, BUN/Creatinine Ratio 20, Glucose Level 194H, Calcium Level 5.4*L, Corrected Calcium 6.7L, Magnesium Level 1.9, Total Bilirubin 0.4, Aspartate Amino Transf (AST/SGOT) 42H, Alanine Aminotransferase (ALT/SGPT) 9, Alkaline Phosphatase 104, Total Protein 6.2L, Albumin 2.4L Microbiology 10/29/22 C. difficile GDH Antigen & Toxins - Final, Resulted 10/29/22 Stool Culture, Resulted Pending Assessment/Plan Assessment/Plan Admission Dx Acute pain in left knee Hypocalcemia Hypomagnesemia Chronic Insulin Dependent diabetes mellitus Chronic Diarrhea Chronic hypertension Assessment and Plan Acute pain in left knee Hypocalcemia Hypomagnesemia Chronic Insulin Dependent diabetes mellitus Chronic Diarrhea Chronic hypertension Elevated PTH Left ankle pain Acute pain in left knee, Left ankle pain - MRI ordered since we have concern for possible compression of knee joint - see report as follows: IMPRESSION: 1. Severe tricompartmental osteoarthritis. 2. There is associated degenerative tearing in both the medial and lateral menisci. 3. Large knee joint effusion, likely reactive in nature. voltaren gel ordered as well, monitor symptoms. - physical and occupational therapy ordered -discussed with pt and her dtr in the room - they were in agreement [place] [facility] [place] - however, her DTR - Pauly reports that her mom will not go to a [place] (as per previous conversations they have had). She would like to try home health therapy at her AL facility - I have advised Pauly to talk to mental health social worker to see what time frame they may have to do a trial of home health therapy at the facility and still potentially have the opportunity - should she fail the out patient home health, to consider moving to a [place] [facility] [place] for therapy. Hypocalcemia and Hypomagnesemia Elevated PTH, low vitamin D - replace with IV magnesium, oral calcium, adding Vitamin D daily with a large weekly dose as well, - still low this morning we will continue with supplementation - and monitor labs in morning. Chronic Insulin Dependent diabetes mellitus - waiting on med reconcillation - use sliding scale. - added levemir at lower than usual home regimen Chronic Diarrhea - hold questran for now, hold metformin, monitor stool, cdiff, culture, o and p stool studies pending. Chronic hypertension - waiting on reconciliation of her meds, monitor pressure. dvt prophylaxis with eliquis gi prophylaxis with ppi Admission Dx Acute pain in left knee Hypocalcemia Hypomagnesemia Chronic Insulin Dependent diabetes mellitus Chronic Diarrhea Chronic hypertension Clinical Quality Measures Admission Status Admission Dx Acute pain in left knee Hypocalcemia Hypomagnesemia Chronic Insulin Dependent diabetes mellitus Chronic Diarrhea Chronic hypertension SACHIN MONTGOMERY MD Oct 30, 2022 08:29
[2022-10-30] MEDS ORDERED: VITAMIN D2 1.25 MG (50,000 UNITS) CAP PO SCH (09:00)
[2022-10-30] MEDS ORDERED: GUAI600T43 PO (09:32)
[2022-10-30] MEDS ORDERED: MAGN250T35 PO (09:32)
[2022-10-30] MEDS ORDERED: DICL100G13 TOP (09:32)
[2022-10-30] MEDS ORDERED: POTA-51 PO (09:32)
[2022-10-30] MEDS ORDERED: PEDI18TA7 PO (09:32)
[2022-10-30] MEDS ORDERED: HYDR-3820 PO (09:32)
[2022-10-30] MEDS ORDERED: FURO20TA4 PO (09:32)
[2022-10-30] MEDS ORDERED: [UNRECOGNIZED DRUG - CODE] TP (09:32)
[2022-10-30] MEDS ORDERED: ACET-2267 PO (09:32)
[2022-10-30] MEDS ORDERED: INSU100I14 SQ (09:32)
[2022-10-30] MEDS ORDERED: MAGIC MOUTH WASH PO (09:35)
[2022-10-30] MEDS ORDERED: OMEP20CA18 PO (09:40)
[2022-10-30] MEDS: VITAMIN D3 10 MCG (400 UNITS) TABLET PO SCH (10:31)
--- NOTE | 2022-10-30 11:53 | Occupational Ther Daily Note ---
OT Current Status-Daily Note Subjective Resting reclined in bed agreeable to OT Mental Status/Objective Patient Orientation: Situation ADL-Treatment Therapy Code Descriptions/Definitions Functional [place] Measure: 0=Not Assessed/NA 4=Minimal Assistance 1=Total Assistance 5=Supervision or Setup 2=Maximal Assistance 6=Modified [place] 3=Moderate Assistance 7=Complete IndependenceSCALE: Activities may be completed with or without assistive devices. 4-Olzsvcoklm-xprjzoi completes the activity by him/herself with no assistance from a helper. 5-Set-up or Clean-up Assistance-helper sets up or cleans up; patient completes activity. [place] assists only prior to or following the activity. 4-Supervision or Touching Assistance-helper provides verbal cues and/or touching/steadying and/or contact guard assistance as patient completes activity. Assistance may be provided throughout the activity or intermittently. 3-Partial/Moderate Assistance-helper does LESS THAN HALF the effort. [place] lifts, holds or supports trunk or limbs, but provides less than half the effort. 2-Substantial/Maximal Assistance-helper does MORE THAN HALF the effort. [place] lifts or holds trunk or limbs and provides more than half the effort. 3-Jtexbscki-ffvnzg does ALL the effort. Patient does none of the effort to complete the activity. Or, the assistance of 2 or more helpers is required for the patient to complete the activity. If activity was not attempted, code reason: 7-Patient Refused. 9-Not Applicable-not attempted and the patient did not perform the activity before the current illness, exacerbation or injury. 10-Not Attempted due to Environmental Limitations-(lack of equipment, weather restraints, etc.). 88-Not Attempted due to Medical Conditions or Safety Concerns. Eating (QC): 6 Oral Hygiene (QC): 5 Shower/Bathe Self (QC): 7 Upper Body Dressing (QC): 4 Lower Body Dressing (QC): 3 On/Off Footwear: 3 Toileting Hygiene (QC): 3 Toilet Transfer (QC): 3 Education OT Patient Education: Correct positioning, Exercise program, Instructions to caregiver, Modified ADL techniques, Progress toward Goal/Update tx plan, Purpose of tx/functional activities, Reviewed precautions, Rehab process, Safety issues, Transfer techniques, Use of adapted equipment Teaching Recipient: Patient, Family Teaching Methods: Demonstration, Discussion Response to Teaching: Reinforcement Needed OT Neon Tube Bender Goals Neon Tube Bender Goals Eating (QC): 6 Oral Hygiene (QC): 5 Toileting Hygiene (QC): 4 Shower/Bathe Self (QC): 3 Upper Body Dressing (QC): 4 Lower Body Dressing (QC): 3 On/Off Footwear (QC): 3 1=Demonstrate adherence to instructed precautions during ADL tasks. 2=Patient will verbalize/demonstrate understanding of assistive devices/modifications for ADL. 3=Patient will improve strength/tolerance for activity to enable patient to perform ADL's. OT Education/Plan Problem List/Assessment Assessment: Decreased Activ Tolerance, Decreased Safety Aware, Decreased UE Strength, Impaired Coordination, Impaired Funct Balance, Impaired Self-Care Skills Discharge Recommendations Plan/Recommendations: Continue POC Treatment Plan/Plan of Care Patient would benefit from OT for education, treatment and training to promote independence in ADL's, mobility, safety and/or upper extremity function for ADL's. Plan of Care: ADL Retraining, Concurrent Therapy, Functional Mobility, Group Exercise/Act as Ind, UE Funct Exercise/Act Treatment Duration: Nov 09, 2022 Frequency: 3 times per week (3-5 times per week) Estimated Hrs Per Day: .25 hour per day Agreement: Yes Rehab Potential: Fair Patient remains sitting EOB w/ family in room, all needs met Time Start Time: 10:13 Stop Time: 10:30 DATE: Oct 30, 2022 Total Time Billed (hr/min): 17 Billed Treatment Time ADL 17 min SERAFIN VASQUEZ OT Oct 30, 2022 11:53
--- NOTE | 2022-10-30 11:55 | Physical Therapy Daily Note ---
PT Daily Note-Current Subjective Patient sitting at the EOB upon PT arrival, agreeable to treatment. Patient rates pain 5/10 in left hip. Pain Section J - Health Conditions 1. Rarely or not at all 2. Occasionally 3. Frequently 4. Almost constantly 8. Unable to answer Pain Effect on Sleep: 1 Pain Interference with Therapy: 2 Pain Interference w/Day-to-Day: 2 Mental Status Patient Orientation: Person, Place, Time, Situation Transfers SCALE: Activities may be completed with or without assistive devices. 5-Zhjdadyzyd-marskhh completes the activity by him/herself with no assistance from a helper. 5-Set-up or Clean-up Assistance-helper sets up or cleans up; patient completes activity. [place] assists only prior to or following the activity. 4-Supervision or Touching Assistance-helper provides verbal cues and/or touching/steadying and/or contact guard assistance as patient completes activity. Assistance may be provided throughout the activity or intermittently. 3-Partial/Moderate Assistance-helper does LESS THAN HALF the effort. [place] lifts, holds or supports trunk or limbs, but provides less than half the effort. 2-Substantial/Maximal Assistance-helper does MORE THAN HALF the effort. [place] l ifts or holds trunk or limbs and provides more than half the effort. 8-Kckpolqji-zqfsla does ALL the effort. Patient does none of the effort to complete the activity. Or, the assistance of 2 or more helpers is required for the patient to complete the activity. If activity was not attempted, code reason: 7-Patient Refused. 9-Not Applicable-not attempted and the patient did not perform the activity before the current illness, exacerbation or injury. 10-Not Attempted due to Environmental Limitations-(lack of equipment, weather restraints, etc.). 88-Not Attempted due to Medical Conditions or Safety Concerns. Roll Left & Right (QC): 2 Sit to Lying (QC): 2 Lying to Sitting/Side of Bed(Q: 2 Sit to Stand (QC): 3 Chair/Qgk-in-Lwmxs Xfer(QC): 3 Weight Bearing Right Lower Extremity: Right Full Weight Bearing Left Lower Extremity: Left Full Weight Bearing Gait Training Does the Patient Walk?: Yes Distance: 30 Walk 10 feet (QC): 3 Gait Assistive Device: FWW Assessment Current Status: Fair Progress Patient tolerated treatment much better today. She performs all transfers with mod to max A. Patient ambulates 30 feet with FWW, with min A and 1 standing rest break. She was able to ambulate with minimally improved gait pattern demonstrating more symmetrical stride length, increased SANDRA and mild improvement in endurance. Patient in bed post treatment with all needs met, nursing notified, call light in reach and daughter in the room. PT Senior Care Goals Bird Keeper Goals PT Bird Keeper Goals Time Frame: Nov 16, 2022 Roll Left & Right (QC): 5 Sit to Lying (QC): 5 Lying-Sitting on Side/Bed(QC): 5 Sit to Stand (QC): 5 Chair/Iza-aw-Rrujc Xfer(QC): 5 Toilet Transfer (QC): 5 Car Transfer (QC): 5 Does the Patient Walk: Yes Walk 10 feet (QC): 4 Walk 50ft with 2 Turns (QC): 4 Walk 150 ft (QC): 4 PT Plan Treatment/Plan Treatment Plan: Continue Plan of Care Treatment Plan: Bed Mobility, Education, Functional Activity Jaida, Functional Strength, Group Therapy, Gait, Safety, Therapeutic Exercise, Transfers Treatment Duration: Nov 16, 2022 Frequency: 6 times per week Estimated Hrs Per Day: .25 hour per day Safety Risks/Education Patient Education: Gait Training, Transfer Techniques Teaching Recipient: Patient Teaching Methods: Demonstration, Discussion Response to Teaching: Verbalize Understanding, Return Demonstration Time Time In: 1039 Time Out: 1050 DATE: Oct 30, 2022 Total Billed Treatment Time: 11 Total Billed Treatment Visit, Gait FORTINO GONZALEZ PT Oct 30, 2022 11:55
[2022-10-30 12:00] VITALS: BP 115/69
[2022-10-30] MEDS: GABAPENTIN 400 MG (NEURONTIN) CAP PO SCH (12:08)
[2022-10-30 15:50] VITALS: BP 127/75
[2022-10-30] MEDS: PSYLLIUM PO SCH (17:06)
[2022-10-30] MEDS: PRAMIPEXOLE 0.125 MG (MIRAPEX) TABLET PO SCH (17:06)
[2022-10-30] MEDS ORDERED: PSYLLIUM PO SCH (18:00)
[2022-10-30 19:54] VITALS: BP 143/68
[2022-10-30] MEDS ORDERED: FUROSEMIDE 40 MG/4 ML INJ (LASIX) IVP ONE (22:00)
[2022-10-30] MEDS: hydrOXYzine (VISTARIL/ATARAX) 25 MG capsule/tablet PO PRN (22:29)
[2022-10-30] MEDS: diphenhydrAMINE 2% 30 GM CR (ALLERGY CREAM) TOP PRN (22:31)
[2022-10-30 23:16] VITALS: BP 138/70
[2022-10-31 03:34] VITALS: BP 146/67
[2022-10-31] MEDS: inSUlin ASPART (NovoLOG) 1 UNIT/0.01 ML (CHARGE PER UNIT) SC SCH ×4 (05:14→21:21)
[2022-10-31 05:20] LABS: HEMATOCRIT 31 % (35-52); HEMOGLOBIN 9.8 g/dL (11.5-16.0); MEAN CORPUSCULAR HEMOGLOBIN 27 pg (25-34); MEAN CORPUSCULAR HGB CONC 31 g/dL (32-36); MEAN CORPUSCULAR VOLUME 85 fL (80-99); MEAN PLATELET VOLUME 11.3 fL (9.0-12.2); PLATELET COUNT 187 10^3/uL (130-400); WHITE BLOOD COUNT 5.3 10^3/uL (4.3-11.0)
[2022-10-31] MEDS: VITAMIN D3 10 MCG (400 UNITS) TABLET PO SCH (05:58)
[2022-10-31] MEDS: HYDROcodone/APAP 5 MG/325 MG (LORTAB) TAB PO PRN (05:58)
[2022-10-31] MEDS: DICLOFENAC 1% GEL 100 GM (VOLTAREN) TUBE TOP SCH ×4 (05:58→19:35)
[2022-10-31] MEDS: CATHETER FLUSH 10 ML SYR IVP SCH ×3 (06:00→19:35)
[2022-10-31 07:53] VITALS: BP 158/72
[2022-10-31] MEDS: SINEMET 25/100 (CARBIDOPA/LEVODOPA) TAB PO SCH ×2 (08:19→19:34)
[2022-10-31] MEDS: GABAPENTIN 300 MG (NEURONTIN) CAP PO SCH ×2 (08:19→19:34)
[2022-10-31] MEDS: CALCIUM CARB + VIT D 600 MG (CALCARB + D) TAB PO SCH ×3 (08:19→17:46)
[2022-10-31] MEDS: PSYLLIUM PO SCH ×3 (08:19→17:46)
[2022-10-31] MEDS: APIXABAN 5 MG (ELIQUIS) TABLET PO SCH ×2 (08:19→19:34)
[2022-10-31 08:58] LABS: CREATININE SERUM 0.83 MG/DL (0.60-1.30)
[2022-10-31 09:00] LABS: CALCIUM 5.8 MG/DL (8.5-10.1)
[2022-10-31] MEDS ORDERED: FUROSEMIDE 20 MG (LASIX) TAB PO SCH (09:00)
[2022-10-31] MEDS ORDERED: KCL 20 MEQ TAB (K-DUR) PO SCH (09:00)
[2022-10-31] MEDS: amLODIPine 10 MG (NORVASC) TAB PO SCH (10:16)
[2022-10-31] MEDS: LEVOTHYROXINE 75 MCG (LEVOTHROID) TABLET PO SCH (10:16)
[2022-10-31] MEDS: TOLTERODINE LA 2 MG (DETROL LA) CAP PO SCH (10:16)
[2022-10-31] MEDS: VENlafaxine 37.5 MG (EFFEXOR) TAB PO SCH (10:16)
[2022-10-31] MEDS: LOPERAMIDE 2 MG (IMODIUM) TABLET PO SCH ×2 (10:16→19:34)
[2022-10-31] MEDS: ACETAMINOPHEN 500 MG TAB (TYLENOL) PO SCH ×4 (10:16→19:34)
[2022-10-31] MEDS: MAGNESIUM OXIDE (MAG-OX)400 MG TAB PO SCH (10:17)
--- NOTE | 2022-10-31 10:32 | Physical Therapy Daily Note ---
PT Daily Note-Current Subjective Patient agrees to PT. Pain Section J - Health Conditions 1. Rarely or not at all 2. Occasionally 3. Frequently 4. Almost constantly 8. Unable to answer Pain Effect on Sleep: 1 Pain Interference with Therapy: 2 Pain Interference w/Day-to-Day: 2 Mental Status Patient Orientation: Normal For Age Transfers SCALE: Activities may be completed with or without assistive devices. 4-Zsmxrqungy-vhxrcey completes the activity by him/herself with no assistance from a helper. 5-Set-up or Clean-up Assistance-helper sets up or cleans up; patient completes activity. [place] assists only prior to or following the activity. 4-Supervision or Touching Assistance-helper provides verbal cues and/or touching/steadying and/or contact guard assistance as patient completes activity. Assistance may be provided throughout the activity or intermittently. 3-Partial/Moderate Assistance-helper does LESS THAN HALF the effort. [place] lifts, holds or supports trunk or limbs, but provides less than half the effort. 2-Substantial/Maximal Assistance-helper does MORE THAN HALF the effort. [place] lifts or holds trunk or limbs and provides more than half the effort. 8-Ixzqlhvbe-hhqbvq does ALL the effort. Patient does none of the effort to complete the activity. Or, the assistance of 2 or more helpers is required for the patient to complete the activity. If activity was not attempted, code reason: 7-Patient Refused. 9-Not Applicable-not attempted and the patient did not perform the activity before the current illness, exacerbation or injury. 10-Not Attempted due to Environmental Limitations-(lack of equipment, weather restraints, etc.). 88-Not Attempted due to Medical Conditions or Safety Concerns. Lying to Sitting/Side of Bed(Q: 4 Sit to Stand (QC): 4 Chair/Apa-zl-Asmno Xfer(QC): 4 Weight Bearing Right Lower Extremity: Right Full Weight Bearing Left Lower Extremity: Left Full Weight Bearing Gait Training Distance: 150' Walk 10 feet (QC): 4 Walk 50 ft with 2 Turns(QC): 4 Walk 150 ft (QC): 4 Gait Assistive Device: FWW WBOS/functional gait sequence Assessment Patient up in recliner with needs met. Upon entering room, patient was on bedpan for BM. PCT present. PT educated patient on importance of OOB to use commode or toilet. Patient voices understanding. PT to increase activity as tolerated by patient. PT Store Clerk Goals Care Home Goals PT Store Clerk Goals Time Frame: Nov 16, 2022 Roll Left & Right (QC): 5 Sit to Lying (QC): 5 Lying-Sitting on Side/Bed(QC): 5 Sit to Stand (QC): 5 Chair/Tsd-fn-Usjax Xfer(QC): 5 Toilet Transfer (QC): 5 Car Transfer (QC): 5 Does the Patient Walk: Yes Walk 10 feet (QC): 4 Walk 50ft with 2 Turns (QC): 4 Walk 150 ft (QC): 4 PT Plan Treatment/Plan Treatment Plan: Continue Plan of Care Treatment Plan: Bed Mobility, Education, Functional Activity Jaida, Functional Strength, Group Therapy, Gait, Safety, Therapeutic Exercise, Transfers Treatment Duration: Nov 16, 2022 Frequency: 6 times per week Estimated Hrs Per Day: .25 hour per day Time Time In: 925 Time Out: 935 DATE: Oct 31, 2022 Total Billed Treatment Time: 10 Total Billed Treatment 1 visit GT 10 min JACK RYAN PT Oct 31, 2022 10:32
[2022-10-31 11:33] VITALS: BP 144/81
[2022-10-31] MEDS: GABAPENTIN 400 MG (NEURONTIN) CAP PO SCH (11:36)
--- NOTE | 2022-10-31 11:43 | Occupational Ther Daily Note ---
OT Current Status-Daily Note Subjective Up in recliner agreeable to sponge bathing and gown change Appearance Instructed and education provided for scab picking, contamination and infection risks, soft rub of skin, application of prescribed creams, patient can apply cream to areas of scabs oozing as is allele to reach to pick. ADL-Treatment Therapy Code Descriptions/Definitions Functional [place] Measure: 0=Not Assessed/NA 4=Minimal Assistance 1=Total Assistance 5=Supervision or Setup 2=Maximal Assistance 6=Modified [place] 3=Moderate Assistance 7=Complete IndependenceSCALE: Activities may be completed with or without assistive devices. 0-Znrhysmpaz-slnwbrp completes the activity by him/herself with no assistance from a helper. 5-Set-up or Clean-up Assistance-helper sets up or cleans up; patient completes activity. [place] assists only prior to or following the activity. 4-Supervision or Touching Assistance-helper provides verbal cues and/or touching/steadying and/or contact guard assistance as patient completes activity. Assistance may be provided throughout the activity or intermittently. 3-Partial/Moderate Assistance-helper does LESS THAN HALF the effort. [place] lifts, holds or supports trunk or limbs, but provides less than half the effort. 2-Substantial/Maximal Assistance-helper does MORE THAN HALF the effort. [place] lifts or holds trunk or limbs and provides more than half the effort. 8-Aiszjwrlb-kricfa does ALL the effort. Patient does none of the effort to complete the activity. Or, the assistance of 2 or more helpers is required for the patient to complete the activity. If activity was not attempted, code reason: 7-Patient Refused. 9-Not Applicable-not attempted and the patient did not perform the activity before the current illness, exacerbation or injury. 10-Not Attempted due to Environmental Limitations-(lack of equipment, weather restraints, etc.). 88-Not Attempted due to Medical Conditions or Safety Concerns. Eating (QC): 6 Oral Hygiene (QC): 5 (Requires initiation and set up, does not perform w/o initial cues) Bathing Location: L Arm, R Arm, L Upper Leg, R Upper Leg, L Lower Leg (including foot), R Lower Leg (including foot), Chest, Abdomen, Buttocks, Perineal Area Shower/Bathe Self (QC): 3 (sponge bath, discussed need for LE assistance and midline hygiene rear assistance from JESÚS ) Upper Body Dressing (QC): 5 Lower Body Dressing (QC): 4 On/Off Footwear: 2 Toileting Hygiene (QC): 3 Toilet Transfer (QC): 4 Education OT Patient Education: Correct positioning, Energy conservation, Modified ADL techniques, Progress toward Goal/Update tx plan, Purpose of tx/functional activities, Reviewed precautions, Rehab process, Safety issues, Transfer techniques, Use of adapted equipment Teaching Recipient: Patient Teaching Methods: Demonstration, Discussion Response to Teaching: Reinforcement Needed OT Dross Skimmer Goals Dross Skimmer Goals Eating (QC): 6 Oral Hygiene (QC): 5 Toileting Hygiene (QC): 4 Shower/Bathe Self (QC): 3 Upper Body Dressing (QC): 4 Lower Body Dressing (QC): 3 On/Off Footwear (QC): 3 1=Demonstrate adherence to instructed precautions during ADL tasks. 2=Patient will verbalize/demonstrate understanding of assistive devices/modifications for ADL. 3=Patient will improve strength/tolerance for activity to enable patient to perform ADL's. OT Education/Plan Problem List/Assessment Assessment: Decreased Activ Tolerance (required rest periods of 45-60 seconds following 25% completionof sponge bathing, total of 4 rest periods w/ SPopnge ba thing, change of gown and donning socks) Discharge Recommendations Plan/Recommendations: Continue POC Treatment Plan/Plan of Care Patient would benefit from OT for education, treatment and training to promote independence in ADL's, mobility, safety and/or upper extremity function for ADL's. Plan of Care: ADL Retraining, Concurrent Therapy, Functional Mobility, Group Exercise/Act as Ind, UE Funct Exercise/Act Treatment Duration: Nov 09, 2022 Frequency: 3 times per week (3-5 times per week) Estimated Hrs Per Day: .25 hour per day Agreement: Yes Rehab Potential: Fair Time Start Time: 10:10 Stop Time: 10:48 DATE: Oct 31, 2022 Total Time Billed (hr/min): 38 Billed Treatment Time ADL 3 38 min SERAFIN VASQUEZ OT Oct 31, 2022 11:43
[2022-10-31] MEDS: PRAMIPEXOLE 0.125 MG (MIRAPEX) TABLET PO SCH (16:34)
[2022-10-31 16:37] VITALS: BP 150/60
[2022-10-31 20:26] VITALS: BP 153/65
[2022-10-31] MEDS: diphenhydrAMINE 2% 30 GM CR (ALLERGY CREAM) TOP PRN (22:49)
[2022-10-31] MEDS: hydrOXYzine (VISTARIL/ATARAX) 25 MG capsule/tablet PO PRN (22:49)
[2022-10-31 23:09] VITALS: BP 160/71
[2022-11-01 04:34] VITALS: BP 156/71
[2022-11-01] MEDS: inSUlin ASPART (NovoLOG) 1 UNIT/0.01 ML (CHARGE PER UNIT) SC SCH ×2 (05:06→11:31)
[2022-11-01] MEDS: CATHETER FLUSH 10 ML SYR IVP SCH (05:11)
[2022-11-01] MEDS: VITAMIN D3 10 MCG (400 UNITS) TABLET PO SCH (05:11)
[2022-11-01 05:28] LABS: HEMATOCRIT 32 % (35-52); HEMOGLOBIN 9.9 g/dL (11.5-16.0); MEAN CORPUSCULAR HEMOGLOBIN 27 pg (25-34); MEAN CORPUSCULAR HGB CONC 31 g/dL (32-36); MEAN CORPUSCULAR VOLUME 87 fL (80-99); MEAN PLATELET VOLUME 10.7 fL (9.0-12.2); PLATELET COUNT 183 10^3/uL (130-400); WHITE BLOOD COUNT 3.5 10^3/uL (4.3-11.0)
[2022-11-01 08:03] VITALS: BP 146/65
--- NOTE | 2022-11-01 08:22 | Progress Note ---
Subjective Subjective Date Seen by Provider: Oct 31, 2022 Time Seen by Provider: 08:30 Review of Systems General: No Chills; Fatigue HEENT: No Dysphasia Pulmonary: No Dyspnea, No Cough Cardiovascular: No: Chest Pain, Palpitations Gastrointestinal: Diarrhea; No: Nausea, Abdominal Pain Musculoskeletal: leg pain (left knee, left ankle pain) Neurological: Weakness; No: Confusion All Other Systems Reviewed All Other Systems Reviewed: Yes Objective Exam Vital Signs Vital Signs Date Time Temp Pulse Resp B/P (MAP) Pulse Ox O2 Delivery O2 Flow Rate FiO2 11/01/22 08:03 36.6 52 18 146/65 (92) 98 Room Air 11/01/22 07:00 50 11/01/22 04:34 36.0 57 20 156/71 (99) 98 Room Air 11/01/22 01:00 52 10/31/22 23:09 36.4 63 20 160/71 (100) 92 Room Air 10/31/22 20:26 36.7 58 16 153/65 (94) 99 Room Air 10/31/22 19:35 Room Air 10/31/22 19:00 60 10/31/22 16:37 36.8 58 16 150/60 (90) 97 Room Air 10/31/22 12:45 70 10/31/22 11:33 36.1 62 20 144/81 (102) 96 Room Air I & O 11/01/22 07:00 Intake Total 1960 ml Output Total 550 ml Balance 1410 ml General Appearance: No Apparent Distress, WD/WN HEENT: PERRL/EOMI, Pharynx Normal Neck: Full Range of Motion, Supple Respiratory: Chest Non Tender, Lungs Clear, Normal Breath Sounds, No Accessory Muscle Use Cardiovascular: Regular Rate, Rhythm Gastrointestinal: Normal Bowel Sounds, Non Tender, Soft Rectal: Deferred Extremity: Normal Capillary Refill, Pedal Edema (trace) Neurologic/Psychiatric: Alert, Oriented x3, No Motor/Sensory Deficits, Normal Mood/Affect Skin: Other (excoriation, multiple sites from head to lower legs) Results Lab Laboratory Tests 10/31/22 11:20: Glucometer 191H 10/31/22 16:26: Glucometer 188H 10/31/22 21:11: Glucometer 183H 11/01/22 05:05: Glucometer 75 11/01/22 05:20: White Blood Count 3.5L, Red Blood Count 3.71L, Hemoglobin 9.9L, Hematocrit 32L, Mean Corpuscular Volume 87, Mean Corpuscular Hemoglobin 27, Mean Corpuscular Hemoglobin Concent 31L, Red Cell Distribution Width 17.4H, Platelet Count 183, Mean Platelet Volume 10.7, Magnesium Level 1.9 Microbiology 10/29/22 Cryptosporidium/Giardia - Final, Complete Assessment/Plan Assessment/Plan Admission Dx Acute pain in left knee Hypocalcemia Hypomagnesemia Chronic Insulin Dependent diabetes mellitus Chronic Diarrhea Chronic hypertension Assessment and Plan Acute pain in left knee Hypocalcemia Hypomagnesemia Chronic Insulin Dependent diabetes mellitus Chronic Diarrhea Chronic hypertension Elevated PTH Left ankle pain Acute pain in left knee, Left ankle pain - MRI ordered since we have concern for possible compression of knee joint - see report as follows: IMPRESSION: 1. Severe tricompartmental osteoarthritis. 2. There is associated degenerative tearing in both the medial and lateral menisci. 3. Large knee joint effusion, likely reactive in nature. voltaren gel ordered as well, monitor symptoms. - physical and occupational therapy ordered -discussed with pt and her dtr in the room - they were in agreement with pt going to penitentiary for therapy - however, her DTR - Pauly reports that her mom will not go to a penitentiary (as per previous conversations they have had). She would like to try home health therapy at her AL facility - I have advised Pauly to talk to social worker health services to see what time frame they may have to do a trial of home health therapy at the facility and still potentially have the opportunity - should she fail the out patient home health, to consider moving to a penitentiary for therapy. Hypocalcemia and Hypomagnesemia Elevated PTH, low vitamin D - replace with IV magnesium, oral calcium, adding Vitamin D daily with a large weekly dose as well, - still low this morning we will continue with supplementation - and monitor labs in morning. Chronic Insulin Dependent diabetes mellitus - waiting on med reconcillation - use sliding scale. - added levemir at lower than usual home regimen Chronic Diarrhea - hold questran for now, hold metformin, monitor stool, cdiff, culture, o and p stool studies pending. Chronic hypertension - waiting on reconciliation of her meds, monitor pressure. dvt prophylaxis with eliquis gi prophylaxis with ppi Admission Dx Acute pain in left knee Hypocalcemia Hypomagnesemia Chronic Insulin Dependent diabetes mellitus Chronic Diarrhea Chronic hypertension Clinical Quality Measures Admission Status Admission Dx Acute pain in left knee Hypocalcemia Hypomagnesemia Chronic Insulin Dependent diabetes mellitus Chronic Diarrhea Chronic hypertension SACHIN MONTGOMERY MD Nov 01, 2022 08:21
--- NOTE | 2022-11-01 08:22 | Discharge Summary ---
Diagnosis/Chief Complaint Date of Admission Oct 29, 2022 at 08:25 Date of Discharge Reason Hospital Visit Pt is an 87 y/o female who is known to me from clinic. She reports that she has had a few falls recently - with the most recent fall arising from an event where she was bending over in her room to meat pickler a book from the floor. She was using a walker to lean on, and as she bent over to meat pickler the book, and the walker "folded up" and she fell to the ground landing on her left knee. She was helped up by staff at the assisted living and waited a day until the pain worsened to present to the ER. Discharge Summary Discharge Physical Examination Allergies: Coded Allergies: No Known Drug Allergies (Verified , 05/06/19) Vitals & I&Os Vital Signs Date Time Temp Pulse Resp B/P (MAP) Pulse Ox O2 Delivery O2 Flow Rate FiO2 11/01/22 08:03 36.6 52 18 146/65 (92) 98 Room Air 10/31/22 03:34 0.00 0.00 Hospital Course Pending Labs Laboratory Tests 11/01/22 05:05: Glucometer 75 11/01/22 05:20: White Blood Count 3.5, Red Blood Count 3.71, Hemoglobin 9.9, Hematocrit 32, Mean Corpuscular Volume 87, Mean Corpuscular Hemoglobin 27, Mean Corpuscular Hemo globin Concent 31, Red Cell Distribution Width 17.4, Platelet Count 183, Mean Platelet Volume 10.7, Magnesium Level 1.9 Discharge Instructions to patient/family Please see electronic discharge instructions given to patient. Discharge Medications Reviewed and agree with Discharge Medication list on patient's Discharge Instruction sheet SACHIN MONTGOMERY MD Nov 01, 2022 08:22
[2022-11-01] MEDS ORDERED: LOPE2CAP PO (08:27)
[2022-11-01] MEDS ORDERED: PSYL3.4P5 PO (08:27)
[2022-11-01] MEDS ORDERED: NF-VITD400 PO (08:27)
[2022-11-01] MEDS ORDERED: ERGO1250 PO (08:27)
[2022-11-01] MEDS ORDERED: CALC-1026 PO (08:27)
--- NOTE | 2022-11-01 08:31 | D/C HH Face to Face Order ---
D/C Face to Face Orders Reconcile Patient Problems Problems Reviewed?: Yes Instructions for Patient home health of pt choice Patient Instructions/FollowUp: 1 - [facility] Physician to follow Patient: adrien Discharge Diet for Home: ADA Diet Patient Problems: diabetes, diarrhea, hypertension, weakness, falling episodes, left knee pain Patient Data-Allergies,Ht & Wt Patient Allergies: Coded Allergies: No Known Drug Allergies (Verified , 05/06/19) Height (Feet): 5 Height (Inches): 2.00 Weight (Pounds): 224 Weight (Ounces): 0.9 Home Health Need/Face to Face Date of Face to Face: Nov 01, 2022 Clinical Findings: Generalized weakness and fatigue, Muscle weakness, Pain with ambulation, Unsteady gait I have seen Pt [id number]: Yes Discharged To: Home Diagnosis/Conditions: diabetes, diarrhea, hypertension, weakness, falling episodes, left knee pain Patient is Homebound due to: [place] fall risk due to instabilty, Pain w/ambulation Homebound Status Due to the above stated illness, injury or surgical procedure (medical condition or diagnosis) and associated clinical findings, the patient is homebound because of his/her inability to leave home except with aid of a s upportive device and/or person AND leaving the home requires a considerable and taxing effort or is medically contraindicated. Pt req the following assistanc: Walker Home Health Nursing Orders Home Health Services Order: Nursing Services, Pest Control Service Technician-Evaluate & Treat, Physical Therapy-Evaluate & Treat cmp, cbc, mag due on 11/05/22 Home Health Infusion Therapy Line Start Date: Oct 28, 2022 Therapy Orders Therapy Orders: PT to assess for OT Therapy Specific Orders: Eval assistive deivces, Teach enviro modifications/safety, Increase strength/endurance Certify Stmt I certify that this patient is under my care and that I, a nurse practitioner or a physician; a program support assistant working with me, had a face to face encounter that - meets the physician face to face encounter requirements with this patient as dated. SACHIN MONTGOMERY MD Nov 01, 2022 08:31
[2022-11-01 09:18] LABS: POTASSIUM 4.6 MMOL/L (3.6-5.0)
[2022-11-01 09:20] LABS: CALCIUM 6.4 MG/DL (8.5-10.1)
[2022-11-01 09:24] LABS: CREATININE SERUM 0.71 MG/DL (0.60-1.30)
[2022-11-01] MEDS: LEVOTHYROXINE 75 MCG (LEVOTHROID) TABLET PO SCH (10:11)
[2022-11-01] MEDS: MAGNESIUM OXIDE (MAG-OX)400 MG TAB PO SCH (10:11)
[2022-11-01] MEDS: LOPERAMIDE 2 MG (IMODIUM) TABLET PO SCH (10:11)
[2022-11-01] MEDS: TOLTERODINE LA 2 MG (DETROL LA) CAP PO SCH (10:12)
[2022-11-01] MEDS: VENlafaxine 37.5 MG (EFFEXOR) TAB PO SCH (10:12)
[2022-11-01] MEDS: GABAPENTIN 300 MG (NEURONTIN) CAP PO SCH (10:12)
[2022-11-01] MEDS: ACETAMINOPHEN 500 MG TAB (TYLENOL) PO SCH (10:12)
[2022-11-01] MEDS: amLODIPine 10 MG (NORVASC) TAB PO SCH (10:13)
[2022-11-01] MEDS: APIXABAN 5 MG (ELIQUIS) TABLET PO SCH (10:13)
[2022-11-01] MEDS: SINEMET 25/100 (CARBIDOPA/LEVODOPA) TAB PO SCH (10:13)
[2022-11-01] MEDS: PSYLLIUM PO SCH (10:13)
[2022-11-01] MEDS: DICLOFENAC 1% GEL 100 GM (VOLTAREN) TUBE TOP SCH (10:14)
[2022-11-01] MEDS: CALCIUM CARB + VIT D 600 MG (CALCARB + D) TAB PO SCH (10:16)
[2022-11-01 11:19] VITALS: BP 137/62
[2022-11-01 12:50] VITALS: BP 137/62
== END 2022-11-01 12:50 | disposition home health service (06) | DRG 556 ==
LOC: EDUNIT# 17:57 → ER 17:59 → 4TH 22:58 → OBSVTOIN 10-29 08:25
PROVIDERS: ADMIT Family Medicine; ATTEND Family Medicine
DX: M25.562 Pain in left knee (principal); E83.51 Hypocalcemia; E83.42 Hypomagnesemia; R19.7 Diarrhea, unspecified; I10 Essential (primary) hypertension; M25.572 Pain in left ankle and joints of left foot; Z79.01 Long term (current) use of anticoagulants; Z79.4 Long term (current) use of insulin; Z79.899 Other long term (current) drug therapy; I48.91 Unspecified atrial fibrillation; E78.00 Pure hypercholesterolemia, unspecified; E11.40 Type 2 diabetes mellitus with diabetic neuropathy, unspecified; K21.9 Gastro-esophageal reflux disease without esophagitis; K58.9 Irritable bowel syndrome, unspecified; M19.90 Unspecified osteoarthritis, unspecified site; G89.29 Other chronic pain; M54.9 Dorsalgia, unspecified; E66.01 Morbid (severe) obesity due to excess calories; E03.9 Hypothyroidism, unspecified; F41.9 Anxiety disorder, unspecified; F32.A Depression, unspecified
CPT/HCPCS: 36415; 73562; 73610; 73700; 73721; 80048; 80053; 82306; 82728; 82947; 83540; 83550; 83735; 83970; 84100; 85025; 85027; 87015; 87045; 87046; 87324; 87328; 87329; 87449; 87899; G0378

== ENCOUNTER 2022-12-11 16:49 | Emergency (ER) | payer MEDICARE, BC ==
[~2022-12-11 16:49] MED LIST changes: +ACET-2267 PO; +CALC-1026 PO; +DICL100G13 TOP; +ERGO1250 PO; +HYDR-3820 PO; +LOPE2CAP PO; +MAGIC MOUTH WASH PO; +MAGN250T35 PO; +NF-VITD400 PO; +PEDI18TA7 PO; +POTA-51 PO; +PSYL3.4P5 PO; +[UNRECOGNIZED DRUG - CODE] TP
--- NOTE | 2022-12-11 17:00 | ED Fall/Injury ---
General Chief Complaint: Trauma-Non Activation Stated Complaint: FALL Nursing Triage Note: PT TO RM 3 BY EMS WITH CC OF FALL FROM SITTING ABOUT 30MIN [employer]. PT HIT HEAD ON CHAIR, DENIES LOC. PT ON BLOOD THINNERS History of Present Illness Date Seen by Provider: December 11, 2022 Time Seen by Provider: 16:48 Initial Comments 87-year-old female from [facility] is brought by EMS after missing her chair and falling back onto her buttocks hitting her head on the chair causing a laceration. She is on Eliquis. There is no active bleeding from the wound that is approximately 2 cm. She denies any nausea, headache, loss of consciousness or other complaints. She has chronic low back pain which is slightly worse since the fall. She has a c-collar in place however she denies any neck pain and reports she was moving her neck without symptoms prior to EMS arriving Occurred: just prior to arrival Injuries/Pain Location: head (laceration), neck Context: lost balance Loss of Consciousness: no loss of consciousness Associated Symptoms (Fall): No Abdominal Pain, No Chest Pain, No Confusion, No Dizziness, No Headache, No Lightheadedness; Muscle Spasms; No Nausea/Vomiting; Neck Pain (chronic, no acute neck pain); No Seizures, No Shortness of Air, No Slurred Speech, No Trouble Walking, No Vision Changes Allergies and Home Medications Allergies Coded Allergies: No Known Drug Allergies (Verified , 05/06/19) Patient Home Medication List Home Medication List Reviewed: Yes Acetaminophen (Tylenol Extra Strength) 500 Mg Tablet, 500 MG PO QID, (Reported) Entered as Reported by: DIANA RASHID on 10/30/22 0932 Amlodipine Besylate (Amlodipine Besylate) 10 Mg Tablet, 10 MG PO DAILY, (Reported) Entered as Reported by: ABBY VAZQUEZ on 11/16/15 1717 Apixaban (Eliquis) 5 Mg Tablet, 5 MG PO BID, (Reported) Entered as Reported by: KEITH ROBLEDO on 03/02/21 1454 Atorvastatin Calcium (Atorvastatin Calcium) 80 Mg Tablet, 80 MG PO HS, (Reported) Entered as Reported by: KEITH ROBLEDO on 03/02/21 1454 Calcium Carbonate/Vitamin D3 (Calcium 600 + Vit D 400 Tablet) 600 Mg Calcium-10 Mcg (400 Unit) Tablet, 600 MG PO TIDWM Prescribed by: SACHIN MONTGOMERY on 11/01/22826 Carbidopa/Levodopa (Carbidopa-Levodopa 25-100 Tab) 25 Mg-100 Mg Tablet, 1 EA PO BID, (Reported) Entered as Reported by: DIANA RASHID on 01/24/22 115 Diclofenac Sodium (Diclofenac Sodium) 1 % Gel..gram., 2 GM TOP UD PRN for PAIN- BREAKTHROUGH, (Reported) Entered as Reported by: DIANA RASHID on 10/30/22931 Ergocalciferol (Vitamin D2) (Vitamin D2) 1,250 Mcg (10925 Unit) Capsule, 1.25 MG PO We@09 Prescribed by: SACHIN MONTGOMERY on 11/01/22826 Furosemide (Furosemide) 20 Mg Tablet, 20 MG PO Q48H, (Reported) Entered as Reported by: DIANA RASHID on 10/30/22931 Gabapentin (Neurontin) 300 Mg Capsule, 300 MG PO BID, (Reported) Entered as Reported by: DIANA RASHID on 01/24/22 115 Gabapentin (Gabapentin) 400 Mg Capsule, 400 MG PO 1200, (Reported) Entered as Reported by: DIANA RASHID on 01/24/22 115 Guaifenesin (Mucinex) 600 Mg Tab.er.12h, 600 MG PO Q12H PRN for ALLERGY, (Reported) Entered as Reported by: DIANA RASHID on 10/30/22931 Hydrocodone/Acetaminophen (Hydrocodone-Acetamin 10-325 mg) 10 Mg-325 Mg Tablet, 1 EA PO Q6H PRN for PAIN-MODERATE (5-7), (Reported) Entered as Reported by: DIANA RASHID on 10/30/22931 Hydrocortisone (Anusol-Hc) 2.5 % Cream..g., 1 APPLIC RC TID PRN for ITCHING, (Re ported) Entered as Reported by: DIANA RASHID on 01/24/22 115 Hydroxyzine HCl (Hydroxyzine HCl) 25 Mg Tablet, 25 MG PO Q8H PRN for ANXIETY, (Reported) Entered as Reported by: KEITH ROBLEDO on 03/02/21 1454 Insulin Aspart (Novolog Flexpen) 100 Unit/Ml (3 Ml) Solution, UNITS SQ AC, (Reported) Entered as Reported by: DIANA RASHID on 10/30/22931 Insulin Detemir (Levemir Flextouch) 100 Unit/Ml (3 Ml) Insuln.pen, 25 UNITS SQ HS, (Reported) Entered as Reported by: KEITH ROBLEDO on 03/02/21 145 Levothyroxine Sodium (Synthroid) 75 Mcg Tablet, 75 MCG PO DAILY, (Reported) Entered as Reported by: KEITH ROBLEDO on 03/02/21 145 Loperamide HCl (Loperamide) 2 Mg Capsule, 2 MG PO Q48H Prescribed by: SACHIN MONTGOMERY on 11/01/22826 Magnesium Oxide (Magnesium Oxide) 250 Mg Tablet, 250 MG PO DAILY, (Reported) Entered as Reported by: DIANA RASHID on 10/30/22931 Methyl Salicylate/Menth/Camph (Muscle Rub Ultra Str Cream) 30 %-10 %-4 % Cream..g., 1 APPLIC TP TID PRN for PAIN-BREAKTHROUGH, (Reported) Entered as Reported by: DIANA RASHID on 01/24/22 1159 Omeprazole (Omeprazole) 20 Mg Capsule.dr, 20 MG PO DAILY, (Reported) Entered as Reported by: DIANA RASHID on 10/30/22 09 Pediatric Multivit No.203/Iron (Flintstones with Iron Tab Chew) 18 Mg Iron Tab.chew, 18 MG PO DAILY, (Reported) Entered as Reported by: DIANA RASHID on 10/30/22931 Potassium Chloride (Potassium Chloride) 20 Meq Tablet.er, 20 MEQ PO Q48H, (Reported) Entered as Reported by: DIANA RASHID on 10/30/22931 Pramipexole Di-HCl (Pramipexole Dihydrochloride) 0.125 Mg Tablet, 0.125 MG PO 1700, (Reported) Entered as Reported by: DIANA RASHID on 01/24/22 1151 Psyllium Husk/Aspartame (Metamucil Fiber Singles Packet) 3.4 Gram Powd.pack, 0.5 PACKET PO TIDWM Prescribed by: SACHIN MONTGOMERY on 11/01/22826 Tolterodine Tartrate (Tolterodine Tartrate ER) 4 Mg Cap.er.24h, 4 MG PO DAILY, (Reported) Entered as Reported by: ABBY VAZQUEZ on 11/16/15 1717 Venlafaxine HCl (Venlafaxine HCl) 37.5 Mg Tab, 37.5 MG PO DAILY, (Reported) Entered as Reported by: DIANA RASHID on 01/24/22 1151 Vitamin D (Vitamin D3) 10 Mcg (400 Unit) Tablet, 10 MCG PO DAILY@0700 Prescribed by: SACHIN MONTGOMERY on 11/01/22 0827 [Magic Mouth Wash] SUSP, 15 ML PO QID, (Reported) Entered as Reported by: DIANA RASHID on 10/30/22 0935 Review of Systems Review of Systems Constitutional: no symptoms reported, see HPI Musculoskeletal: see HPI, back pain (Lower Lumbar), neck pain Skin: see HPI, other (lac to frontal scalp) All Other Systems Reviewed Negative Unless Noted: Yes Past Sqctzmn-Feajgg-Igvccx Hx Immunizations Up To Date Tetanus Booster (TDap): Unknown PED Vaccines UTD: No First/Initial COVID19 Vaccinat: RECEIVED, UNK WHEN Second COVID19 Vaccination Wally: RECEIVED, UNK WHEN Third COVID19 Vaccination Date: RECEIVED, UNK WHEN Past Medical History Surgeries: Yes (R KNEE REPLACEMENT, hernia w/mesh placement Dr Jones ) Abdominal, Appendectomy, Gallbladder, Hysterectomy, Joint Replacement, Orthopedic, Tonsillectomy Respiratory: No Cardiac: Yes (INTERMITTENT ATRIAL FIBRILLATION ) Atrial Fibrillation, Chronic Edema/Swelling, High Cholesterol, Hypertension Neurological: Yes (? PARKINSON'S ? ) Neuropathy Reproductive Disorders: No Female Reproductive Disorders: Denies Sexually Transmitted Disease: No HIV/AIDS: No Gastrointestinal: Yes (GERD) Gastroesophageal Reflux, Hiatal Hernia, Irritable Bowel Musculoskeletal: Yes (ARTHRITIS) Degenerate Disk Disease, Arthritis, Chronic Back Pain Endocrine: Yes (MORBID OBESTIY) Diabetes, Insulin dep, Hypothyroidsim Cataract Loss of Vision: Denies Hearing Impairment: Denies Cancer: No Psychosocial: Yes Anxiety, Depression Integumentary: Yes (bullous pemphigoid) Pruritis Blood Disorders: No Family Medical History Reviewed Nursing Family Hx Cancer 03 MOTHER (STOMACH COLON ESOPHAGEAL) Cancer of colon 03 MOTHER 09 SISTER Family history: Cardiovascular disease 09 SISTER (HAS PACEMAKER) Family history: Diabetes mellitus 03 FATHER Myocardial infarction 03 FATHER No Family History of: Abdominal aortic aneurysm Bryan's disease Alcoholism Aphasia Cataract Chest pain Congenital heart disease Congestive heart failure Cystic fibrosis Dementia Dysphagia Family history: Allergy Family history: Alzheimer's disease Family history: Arthritis Family history: Asthma Family history: Coronary thrombosis Family history: Gastrointestinal disease Family history: Glaucoma Family history: Hypertension Family history: Osteoporosis Family history: Thyroid disorder Headache Hearing loss Heart disease Hereditary disease History of - anemia History of - respiratory disease History of drug abuse Human immunodeficiency virus (HIV) seropositivity Hypercholesterolemia Infertile Kidney disease Malignant neoplasm of lung Parkinson's disease Prostate cancer Psychotic disorder Seizure disorder Stroke Tuberculosis Visual impairment Hypertension, Other Conditions/Hx Physical Exam Vital Signs Vital Signs - First Documented 12/11/22 16:51 Pulse 67 Resp 17 B/P (MAP) 174/80 (111) Pulse Ox 97 O2 Delivery Room Air Capillary Refill : Less Than 3 Seconds Height, Weight, BMI Height: 5'2.00" Weight: 224lbs. 0.9oz. 101.599872cs; 43.16 BMI Method:Stated General Appearance: WD/WN, no apparent distress HEENT: PERRL/EOMI, normal ENT inspection, TMs normal, pharynx normal Neck: non-tender, limited range of motion (due to c-collar); No tender lateral, No tender midline Cardiovascular: normal peripheral pulses, regular rate, rhythm Respiratory: chest non-tender, lungs clear, normal breath sounds Gastrointestinal: normal bowel sounds, non tender, soft, other (ventral hernia present) Back: normal inspection, muscle spasm (lower lumbar) Extremities: non-tender, normal inspection, no pedal edema, no calf tenderness Neurologic/Psychiatric: no motor/sensory deficits, alert, normal mood/affect, oriented x 3 Skin: normal color, warm/dry, other (2 cm lac to scalp) [place] Coma Score Best Eye Response: (4) Open Spontaneously Best Verbal Response: (5) Oriented Best Motor Response: (6) Obeys Commands Kisha Total: 15 Procedures/Interventions Wound Location: Scalp Wound Length (cm): 2 Wound's Depth, Shape: superficial Wound Explored: clean Irrigated w/ Saline (ccs): 100 Betadine Prep?: Yes Staple Repair: Stapler 35W Number of Sutures: 2 Sterile Dressing Applied?: Yes Progress/Results/Core Measures Results/Orders Lab Results Laboratory Tests Test 12/11/22 17:36 Range/Units Glucometer 152 H 70-110 MG/DL My Orders Orders - MICKIE MAHAJAN Ct Head/Cervical Spine Wo (12/11/22 16:56) Accucheck Stat ONCE (12/11/22 16:56) Hydrocodone/Apap 7.5/325 Tab (Lortab 7. (12/11/22 17:51) Dipht,Pertuss(Acell),Tet Adult (Boostrix (12/11/22 18:00) Sacrum And Coccyx (12/11/22 18:17) Lumbar Spine - 2-3 Views (12/11/22 18:17) Medications Given in ED Current Medications Medications Dose Ordered Sig/Alonzo Route Start Time Stop Time Status Last Admin Dose Admin Diphtheria/ Tetanus/Acell Pertussis 0.5 ml ONCE ONCE IM 12/11/22 18:00 12/11/22 18:01 DC 12/11/22 18:07 0.5 ML Vital Signs/I&O 12/11/22 12/11/22 16:51 20:25 Pulse 67 70 Resp 17 11 B/P (MAP) 174/80 (111) 146/73 Pulse Ox 97 97 O2 Delivery Room Air Room Air Progress Progress Note : Time: 16:48 Progress Note Patient assessed, will maintain c-collar until CT completed. Due to her being on Eliquis we will do a CT of the head and neck. Patient denies needs for pain medication at this time. She denies any other complaints related to the fall. Sterile dressing applied to her frontal scalp, no active bleeding. 1748 CT negative head and c-spine, C-collar removed, patient has full ROM to neck with no radicular symptoms. 1755 patient complaining of increased low back pain. She has not had any pain medicine since approximately noon today. She takes hydrocodone regularly for arthritis. We will give her hydrocodone/APAP 7.5/325mg. 1830 x-rays of lumbar spine and coccyx negative for acute injuries. Discussed with patient. [facility] notified and will provide transportation back to assisted living for patient. 1850 patient reports improvement in pain, no request at this time. 0 patients son in law called ED and reports family will get her, but it will be after 1999. 2015 family here to take patient to Asst Living. Patient denies any complaints. Discharge instructions and return precautions reviewed with her. Diagnostic Imaging Diagonstic Imaging: CT Plain Films/CT/US/NM/MRI: c-spine, head Comments NAME: VERÓNICA RICHARD [facility] REC#: [id number] PT STATUS: REG ER : 1935 PHYSICIAN: MICKIE MAHAJAN ADMIT DATE: 12/11/22/ER Signed Date of Exam:12/11/22 CT HEAD/CERVICAL SPINE WO PROCEDURE: CT head and CT cervical spine without contrast. TECHNIQUE: Multiple contiguous axial images were obtained through the brain and cervical spine without the use of intravenous contrast. Sagittal and coronal reformations through the cervical spine were then performed. Auto Exposure Controls were utilized during the CT exam to meet ALARA standards for radiation dose reduction. INDICATION: Trauma, pain. COMPARISON: 05/14/2019. FINDINGS: Mild atrophy. No intracranial hemorrhage. No intracranial mass, mass effect, midline shift, herniation, hydrocephalus, or extra-axial fluid collection. Periventricular and subcortical white matter hypodensities are present, most consistent with moderate background chronic small vessel white matter ischemic disease. No definite CT evidence of an acute ischemic infarction. The bilateral ocular lenses are absent. Small hematoma involving the high right parietal scalp without underlying calvarial fracture. Mild mucosal thickening within the left maxillary sinus. Otherwise, the paranasal sinuses are clear. Advanced vascular calcifications within the visualized portions of the carotid arteries. Alignment of the cervical spine is well maintained. Alignment of the atlanto-occipital joint is well maintained. Besides significant scattered endplate degenerative changes, vertebral body heights are well maintained. Mild disc space height loss at C3/C4. Moderate disc space height loss at C6/C7. Severe disc space height loss at T1/T2, T2/T3, and T3/T4. Multilevel significant scattered facet joint degenerative changes. Significant degenerative changes involving bilateral sternoclavicular joints. No acute fracture or dislocation. No destructive osseous process. Significant uncovertebral joint hypertrophy and facet joint degenerative changes. There is resulting multilevel central canal and neural foraminal stenosis. Multilevel disc osteophyte complexes. No apical pneumothorax within the knryk-hj-tzkh. IMPRESSION: No acute intracranial abnormality with mild atrophy and moderate background chronic small vessel white matter ischemic disease. Small high right parietal scalp hematoma without underlying calvarial fracture. Moderate multilevel degenerative changes throughout the cervical spine without acute osseous abnormality within the cervical spine. Dictated by: Dictated on workstation # [id number] Dict: 12/11/22 171 Trans: 12/11/221733 [facility] [id number] Interpreted by: NOAH FARIA MD Electronically signed by: NOAH FARIA MD 12/11/221733 Reviewed: Reviewed by Me Diagonstic Imaging: Xray Plain Films/CT/US/NM/MRI: other (Sacrumcoccyx) Comments NAME: VERÓNICA RICHARD [facility] REC#: [id number] PT STATUS: REG ER : 1935 PHYSICIAN: MICKIE MAHAJAN ADMIT DATE: 12/11/22/ER Draft Date of Exam:12/11/22 SACRUM AND COCCYX INDICATION: Tailbone pain. TIME OF EXAM: 6:28 PM. FINDINGS: Sacrococcygeal alignment is normal. No definite fracture is seen. Sacro arcuate lines are intact. SI joints are non-widened. Symphysis is non-widened. IMPRESSION: No acute abnormality detected. Dictated on workstation # [id number] Dict: 12/11/221834 Trans: 12/11/221840 [facility] [id number] Interpreted by: DOROTHY BARBOUR MD Electronically signed by: Reviewed: Reviewed by Me Diagonstic Imaging: Xray Plain Films/CT/US/NM/MRI: other (L Spine) Comments NAME: VERÓNICA RICHARD [facility] REC#: [id number] PT STATUS: REG ER : 1935 PHYSICIAN: MICKIE MAHAJAN ADMIT DATE: 12/11/22/ER Draft Date of Exam:12/11/22 LUMBAR SPINE - 2-3 VIEWS INDICATION: Low back pain. TIME OF EXAM: 6:30 PM. FINDINGS: Curvature of the lumbar spine is normal. There is minimal retrolisthesis of L2 on L3. There is multilevel degenerative disc disease with variable disc space narrowing and marginal spurring. Vertebral body heights are maintained. No acute compression fracture is seen. Aorta is heavily calcified. IMPRESSION: Lumbar spondylosis. No acute bony abnormality is detected. Dictated on workstation # [id number] Dict: 12/11/221835 Trans: 12/11/221843 [facility] [id number] Interpreted by: DOROTHY BARBOUR MD Electronically signed by: Reviewed: Reviewed by Me Departure Impression Primary Impression: Fall Qualified Codes: W19.XXXA - Unspecified fall, initial encounter Additional Impressions: Laceration of head Qualified Codes: S01.01XA - Laceration without foreign body of scalp, initial encounter Back pain Qualified Codes: M54.50 - Low back pain, unspecified; G89.29 - Other chronic pain Arthritis Disposition: HOME, SELF-CARE Condition: Improved Departure-Patient Inst. Decision time for Depature: 18:40 Referrals: SACHIN MONTGOMERY MD (PCP/Family) Primary Care Physician Patient Instructions: Laceration Repair With Marshall (DC), Preventing falls in adults Add. Discharge Instructions: Leave marshall in place for 7 to 10 days and then they may be removed. The Nurse at your assisted living can remove them or return to ER. You may shower as normal. Watch for signs of redness, drainage, or increased pain. If the laceration to your head begins to bleed, apply a pressure dressing and ice pack. Since you are on Eliquis it is common for more bleeding. Usually a pressure dressing will stop this. Return to the emergency department for new, urgent healthcare needs. All discharge instructions reviewed with patient and/or family. Voiced understanding. Copy Copies To 1: SACHIN MONTGOMERY MD, AMY ARNP December 11, 2022 16:59
--- NOTE | 2022-12-11 17:24 | Diagnostic Imaging Report ---
PROCEDURE: CT head and CT cervical spine without contrast. TECHNIQUE: Multiple contiguous axial images were obtained through the brain and cervical spine without the use of intravenous contrast. Sagittal and coronal reformations through the cervical spine were then performed. Auto Exposure Controls were utilized during the CT exam to meet ALARA standards for radiation dose reduction. INDICATION: Trauma, pain. COMPARISON: 05/14/2019. FINDINGS: Mild atrophy. No intracranial hemorrhage. No intracranial mass, mass effect, midline shift, herniation, hydrocephalus, or extra-axial fluid collection. Periventricular and subcortical white matter hypodensities are present, most consistent with moderate background chronic small vessel white matter ischemic disease. No definite CT evidence of an acute ischemic infarction. The bilateral ocular lenses are absent. Small hematoma involving the high right parietal scalp without underlying calvarial fracture. Mild mucosal thickening within the left maxillary sinus. Otherwise, the paranasal sinuses are clear. Advanced vascular calcifications within the visualized portions of the carotid arteries. Alignment of the cervical spine is well maintained. Alignment of the atlanto-occipital joint is well maintained. Besides significant scattered endplate degenerative changes, vertebral body heights are well maintained. Mild disc space height loss at C3/C4. Moderate disc space height loss at C6/C7. Severe disc space height loss at T1/T2, T2/T3, and T3/T4. Multilevel significant scattered facet joint degenerative changes. Significant degenerative changes involving bilateral sternoclavicular joints. No acute fracture or dislocation. No destructive osseous process. Significant uncovertebral joint hypertrophy and facet joint degenerative changes. There is resulting multilevel central canal and neural foraminal stenosis. Multilevel disc osteophyte complexes. No apical pneumothorax within the ddxvc-fh-suse. IMPRESSION: No acute intracranial abnormality with mild atrophy and moderate background chronic small vessel white matter ischemic disease. Small high right parietal scalp hematoma without underlying calvarial fracture. Moderate multilevel degenerative changes throughout the cervical spine without acute osseous abnormality within the cervical spine. Dictated by: Dictated on workstation # [id number]
[2022-12-11] MEDS ORDERED: HYDROcodone/APAP 7.5 MG/325 MG (LORTAB, LORCET PLUS) TABLET PO STA (17:51)
[2022-12-11] MEDS ORDERED: TETANUS,DIPTH,PERTUSS P/F (BOOSTRIX) 0.5 ML VIAL IM ONE (18:00)
--- NOTE | 2022-12-11 18:41 | Diagnostic Imaging Report ---
INDICATION: Tailbone pain. TIME OF EXAM: 6:28 PM. FINDINGS: Sacrococcygeal alignment is normal. No definite fracture is seen. Sacro arcuate lines are intact. SI joints are non-widened. Symphysis is non-widened. IMPRESSION: No acute abnormality detected. Dictated by: Dictated on workstation # [id number]
--- NOTE | 2022-12-11 18:44 | Diagnostic Imaging Report ---
INDICATION: Low back pain. TIME OF EXAM: 6:30 PM. FINDINGS: Curvature of the lumbar spine is normal. There is minimal retrolisthesis of L2 on L3. There is multilevel degenerative disc disease with variable disc space narrowing and marginal spurring. Vertebral body heights are maintained. No acute compression fracture is seen. Aorta is heavily calcified. IMPRESSION: Lumbar spondylosis. No acute bony abnormality is detected. Dictated by: Dictated on workstation # [id number]
[2022-12-11 20:25] VITALS: BP 146/73
== END 2022-12-11 20:25 | disposition home or self-care (01) ==
LOC: EDUNIT# 16:49 → ER 16:50
DX: S01.01XA Laceration without foreign body of scalp, initial encounter (principal); M19.90 Unspecified osteoarthritis, unspecified site; M54.50 Low back pain, unspecified; E11.9 Type 2 diabetes mellitus without complications; E66.01 Morbid (severe) obesity due to excess calories; Z68.41 Body mass index [BMI] 40.0-44.9, adult; Z79.01 Long term (current) use of anticoagulants; Z79.4 Long term (current) use of insulin; W18.30XA Fall on same level, unspecified, initial encounter; W22.8XXA Striking against or struck by other objects, initial encounter
CPT/HCPCS: 70450; 72100; 72125; 72220; 82947; 90715

== ENCOUNTER 2023-01-10 11:45 | Observation (INO) | payer MEDICARE, BC ==
[~2023-01-10] VITALS: Ht 157 cm; Wt 89.0 kg
[~2023-01-10 11:45] MED LIST changes: +POTA-330 PO; -POTA-51 PO
[2023-01-10 12:25] LABS: BASOPHILS # (AUTO) 0.1 10^3/uL (0.0-0.1); BASOPHILS % (AUTO) 1 % (0-10); EOSINOPHILS # (AUTO) 0.2 10^3/uL (0.0-0.3); EOSINOPHILS % (AUTO) 2 % (0-10); HEMATOCRIT 36 % (35-52); LYMPHOCYTES # (AUTO) 2.4 10^3/uL (1.0-4.0); LYMPHOCYTES % (AUTO) 28 % (12-44); MEAN CORPUSCULAR HEMOGLOBIN 28 pg (25-34); MEAN CORPUSCULAR HGB CONC 31 g/dL (32-36); MEAN CORPUSCULAR VOLUME 91 fL (80-99); MEAN PLATELET VOLUME 11.7 fL (9.0-12.2); MONOCYTES # (AUTO) 0.7 10^3/uL (0.0-1.0); MONOCYTES % (AUTO) 9 % (0-12); NEUTROPHILS # (AUTO) 5.1 10^3/uL (1.8-7.8); NEUTROPHILS % (AUTO) 60 % (42-75); PLATELET COUNT 190 10^3/uL (130-400); WHITE BLOOD COUNT 8.5 10^3/uL (4.3-11.0)
--- NOTE | 2023-01-10 12:26 | ED General ---
General Chief Complaint: General Problems/Pain Stated Complaint: LOW CALCIUM LEVELS Nursing Triage Note: PT AMB TO TRIAGE W WALKER. PT WAS SEEN BY PROVIDER TODAY AND CA LEVEL IS REALLY LOW AT 5.5. Source of Information: Patient Exam Limitations: No Limitations History of Present Illness Date Seen by Provider: Jan 10, 2023 Time Seen by Provider: 12:22 Initial Comments Patient is a 87-year-old female with a history of A-fib, diabetes, Bellous pemphigoid who presents to the ED for low calcium level. Had lab work drawn yesterday and had a result of calcium of 5.5. Was recommended come to ED. She had lab work drawn secondary to dizziness for the past 2 days. Dizziness only occurs with walking. She denies of any chest pain, shortness of breath, cough, abdominal pain vomiting, diarrhea. She does take Lasix for edema. Currently being treated with doxycycline and prednisone for a wound to her left lower leg. She states she had a blister that developed but states that is currently healing. She denies of any leg cramping, paresthesia, cramps, weakness, confusion, seizures, hallucination, throat pain. She is not on digoxin. She does take Eliquis. She denies headache, focal neural deficits, visual changes. Allergies and Home Medications Allergies Coded Allergies: No Known Drug Allergies (Verified , 05/06/19) Patient Home Medication List Home Medication List Reviewed: Yes Acetaminophen (Tylenol Extra Strength) 500 Mg Tablet, 500 MG PO QID, (Reported) Entered as Reported by: DIANA RASHID on 10/30/22 0932 Amlodipine Besylate (Amlodipine Besylate) 10 Mg Tablet, 10 MG PO DAILY, (Reported) Entered as Reported by: ABBY VAZQUEZ on 11/16/15 1717 Apixaban (Eliquis) 5 Mg Tablet, 5 MG PO BID, (Reported) Entered as Reported by: KEITH ROBLEDO on 03/02/21 1454 Atorvastatin Calcium (Atorvastatin Calcium) 80 Mg Tablet, 80 MG PO HS, (Reported) Entered as Reported by: KEITH ROBLEDO on 03/02/21 1454 Calcium Carbonate/Vitamin D3 (Calcium 600 + Vit D 400 Tablet) 600 Mg Calcium-10 Mcg (400 Unit) Tablet, 600 MG PO TIDWM Prescribed by: SACHIN MONTGOMERY on 11/01/22 0827 Carbidopa/Levodopa (Carbidopa-Levodopa 25-100 Tab) 25 Mg-100 Mg Tablet, 1 EA PO BID, (Reported) Entered as Reported by: DIANA RASHID on 01/24/22 115 Diclofenac Sodium (Diclofenac Sodium) 1 % Gel..gram., 2 GM TOP UD PRN for PAIN- BREAKTHROUGH, (Reported) Entered as Reported by: DIANA RASHID on 10/30/22931 Ergocalciferol (Vitamin D2) (Vitamin D2) 1,250 Mcg (20290 Unit) Capsule, 1.25 MG PO We@09 Prescribed by: SACHIN MONTGOMERY on 11/01/22 0827 Furosemide (Furosemide) 20 Mg Tablet, 20 MG PO Q48H, (Reported) Entered as Reported by: DIANA RASHID on 10/30/22931 Gabapentin (Neurontin) 300 Mg Capsule, 300 MG PO BID, (Reported) Entered as Reported by: DIANA RASHID on 01/24/22 115 Gabapentin (Gabapentin) 400 Mg Capsule, 400 MG PO 1200, (Reported) Entered as Reported by: DIANA RASHID on 01/24/22 115 Guaifenesin (Mucinex) 600 Mg Tab.er.12h, 600 MG PO Q12H PRN for ALLERGY, (Reported) Entered as Reported by: DIANA RASHID on 10/30/22931 Hydrocodone/Acetaminophen (Hydrocodone-Acetamin 10-325 mg) 10 Mg-325 Mg Tablet, 1 EA PO Q6H PRN for PAIN-MODERATE (5-7), (Reported) Entered as Reported by: DIANA RASHID on 10/30/22931 Hydrocortisone (Anusol-Hc) 2.5 % Cream..g., 1 APPLIC RC TID PRN for ITCHING, (Reported) Entered as Reported by: DIANA RASHID on 01/24/22 115 Hydroxyzine HCl (Hydroxyzine HCl) 25 Mg Tablet, 25 MG PO Q8H PRN for ANXIETY, (Reported) Entered as Reported by: KEITH ROBLEDO on 03/02/21 1454 Insulin Aspart (Novolog Flexpen) 100 Unit/Ml (3 Ml) Solution, UNITS SQ AC, (Reported) Entered as Reported by: DIANA RASHID on 10/30/22931 Insulin Detemir (Levemir Flextouch) 100 Unit/Ml (3 Ml) Insuln.pen, 25 UNITS SQ HS, (Reported) Entered as Reported by: KEITH ROBLEDO on 03/02/21 1454 Levothyroxine Sodium (Synthroid) 75 Mcg Tablet, 75 MCG PO DAILY, (Reported) Entered as Reported by: KEITH ROBLEDO on 03/02/21 1454 Loperamide HCl (Loperamide) 2 Mg Capsule, 2 MG PO Q48H Prescribed by: SACHIN MONTGOMERY on 11/01/22 08 Magnesium Oxide (Magnesium Oxide) 250 Mg Tablet, 250 MG PO DAILY, (Reported) Entered as Reported by: DIANA RASHID on 10/30/22 0932 Methyl Salicylate/Menth/Camph (Muscle Rub Ultra Str Cream) 30 %-10 %-4 % Cream ..g., 1 APPLIC TP TID PRN for PAIN-BREAKTHROUGH, (Reported) Entered as Reported by: DIANA RASHID on 01/24/22 1159 Omeprazole (Omeprazole) 20 Mg Capsule.dr, 20 MG PO DAILY, (Reported) Entered as Reported by: DIANA RASHID on 10/30/22 0940 Pediatric Multivit No.203/Iron (Flintstones with Iron Tab Chew) 18 Mg Iron Tab .chew, 18 MG PO DAILY, (Reported) Entered as Reported by: DIANA RASHID on 10/30/22 0932 Potassium Chloride (Potassium Chloride) 20 Meq Tablet.er, 20 MEQ PO Q48H, (Reported) Entered as Reported by: DIANA RASHID on 10/30/22 0932 Pramipexole Di-HCl (Pramipexole Dihydrochloride) 0.125 Mg Tablet, 0.125 MG PO 1700, (Reported) Entered as Reported by: DIANA RASHID on 01/24/22 1151 Psyllium Husk/Aspartame (Metamucil Fiber Singles Packet) 3.4 Gram Powd.pack, 0.5 PACKET PO TIDWM Prescribed by: SACHIN MONTGOMERY on 11/01/22 08 Tolterodine Tartrate (Tolterodine Tartrate ER) 4 Mg Cap.er.24h, 4 MG PO DAILY, (Reported) Entered as Reported by: ABBY VAZQUEZ on 11/16/15 1717 Venlafaxine HCl (Venlafaxine HCl) 37.5 Mg Tab, 37.5 MG PO DAILY, (Reported) Entered as Reported by: DIANA RASHID on 01/24/22 1151 Vitamin D (Vitamin D3) 10 Mcg (400 Unit) Tablet, 10 MCG PO DAILY@0700 Prescribed by: SACHIN MONTGOMERY on 11/01/22 0827 [Magic Mouth Wash] SUSP, 15 ML PO QID, (Reported) Entered as Reported by: DIANA RASHID on 10/30/22 0935 Review of Systems Review of Systems Constitutional: No chills, No diaphoresis EENTM: No ear pain, No blurred vision, No double vision, No mouth pain, No mouth swelling Respiratory: No cough, No dyspnea on exertion, No short of breath Cardiovascular: No chest pain, No edema Gastrointestinal: No abdominal pain, No diarrhea, No nausea, No vomiting Genitourinary: No decreased output, No discharge Musculoskeletal: No back pain, No joint pain Skin: No change in color, No change in hair/nails Psychiatric/Neurological: Other (dizziness) All Other Systems Reviewed Negative Unless Noted: Yes Past Xphavzv-Qkrmtn-Igiopp Hx Patient Social History Tobacco Use?: No Substance use?: No Alcohol Use?: No Pt feels they are or have been: No Immunizations Up To Date Tetanus Booster (TDap): Unknown PED Vaccines UTD: No First/Initial COVID19 Vaccinat: RECEIVED, UNK WHEN Second COVID19 Vaccination Wally: RECEIVED, UNK WHEN Third COVID19 Vaccination Date: RECEIVED, UNK WHEN Past Medical History Surgery/Hospitalization HX: DM, HTN, R TOTAL KNEE, GB, HYST. Surgeries: Yes (R KNEE REPLACEMENT, hernia w/mesh placement Dr Jones ) Abdominal, Appendectomy, Gallbladder, Hysterectomy, Joint Replacement, Orthopedic, Tonsillectomy Respiratory: No Cardiac: Yes (INTERMITTENT ATRIAL FIBRILLATION ) Atrial Fibrillation, Chronic Edema/Swelling, High Cholesterol, Hypertension Neurological: Yes (? PARKINSON'S ? ) Neuropathy Reproductive Disorders: No Female Reproductive Disorders: Denies Sexually Transmitted Disease: No HIV/AIDS: No Gastrointestinal: Yes (GERD) Gastroesophageal Reflux, Hiatal Hernia, Irritable Bowel Musculoskeletal: Yes (ARTHRITIS) Degenerate Disk Disease, Arthritis, Chronic Back Pain Endocrine: Yes (MORBID OBESTIY) Diabetes, Insulin dep, Hypothyroidsim Cataract Loss of Vision: Denies Hearing Impairment: Denies Cancer: No Psychosocial: Yes Anxiety, Depression Integumentary: Yes (bullous pemphigoid) Pruritis Blood Disorders: No Family Medical History Cancer 03 MOTHER (STOMACH COLON ESOPHAGEAL) Cancer of colon 03 MOTHER 09 SISTER Family history: Cardiovascular disease 09 SISTER (HAS PACEMAKER) Family history: Diabetes mellitus 03 FATHER Myocardial infarction 03 FATHER No Family History of: Abdominal aortic aneurysm Bryan's disease Alcoholism Aphasia Cataract Chest pain Congenital heart disease Congestive heart failure Cystic fibrosis Dementia Dysphagia Family history: Allergy Family history: Alzheimer's disease Family history: Arthritis Family history: Asthma Family history: Coronary thrombosis Family history: Gastrointestinal disease Family history: Glaucoma Family history: Hypertension Family history: Osteoporosis Family history: Thyroid disorder Headache Hearing loss Heart disease Hereditary disease History of - anemia History of - respiratory disease History of drug abuse Human immunodeficiency virus (HIV) seropositivity Hypercholesterolemia Infertile Kidney disease Malignant neoplasm of lung Parkinson's disease Prostate cancer Psychotic disorder Seizure disorder Stroke Tuberculosis Visual impairment Hypertension, Other Conditions/Hx Physical Exam Vital Signs Vital Signs - First Documented 01/10/23 11:50 Temp 36.4 Pulse 65 Resp 16 B/P (MAP) 132/62 (85) Pulse Ox 98 Capillary Refill : Less Than 3 Seconds Height, Weight, BMI Height: 5'2.00" Weight: 224lbs. 0.9oz. [id number]; 36.00 BMI Method:Stated General Appearance: No Apparent Distress, WD/WN Eyes: Bilateral Eye Normal Inspection, Bilateral Eye PERRL, Bilateral Eye EOMI HEENT: PERRL/EOMI, TMs Normal, Normal ENT Inspection, Pharynx Normal Neck: Full Range of Motion, Normal Inspection, Non Tender, Supple Respiratory: Chest Non Tender, Lungs Clear, Normal Breath Sounds, No Accessory Muscle Use, No Respiratory Distress Cardiovascular: Regular Rate, Rhythm, No Edema, No Gallop, No JVD Gastrointestinal: Normal Bowel Sounds, No Organomegaly, No Pulsatile Mass Extremity: Normal Capillary Refill, Normal Inspection, Pedal Edema, Other (Edema +2 bilateral lower extremities. crusted wounds to the left lower extremity. No purulent drainage) Neurologic/Psychiatric: Alert, Oriented x3, No Motor/Sensory Deficits, Normal Mood/Affect Skin: Other (Mild erythema lower extremity. No fluctuant mass. No active drainage.) Progress/Results/Core Measures Suspected Sepsis SIRS Temperature: Pulse: 65 Respiratory Rate: 16 Laboratory Tests 01/10/23 12:10: White Blood Count 8.5 Blood Pressure 132 /62 Mean: 85 Laboratory Tests 01/10/23 12:10: Creatinine 0.91, Platelet Count 190, Total Bilirubin 0.5 Results/Orders Lab Results Laboratory Tests Test 01/10/23 12:10 Range/Units White Blood Count 8.5 4.3-11.0 10^3/uL Red Blood Count 3.95 3.80-5.11 10^6/uL Hemoglobin 11.0 L 11.5-16.0 g/dL Hematocrit 36 35-52 % Mean Corpuscular Volume 91 80-99 fL Mean Corpuscular Hemoglobin 28 25-34 pg Mean Corpuscular Hemoglobin Concent 31 L 32-36 g/dL Red Cell Distribution Width 16.0 H 10.0-14.5 % Platelet Count 190 130-400 10^3/uL Mean Platelet Volume 11.7 9.0-12.2 fL Immature Granulocyte % (Auto) 0 % Neutrophils (%) (Auto) 60 42-75 % Lymphocytes (%) (Auto) 28 12-44 % Monocytes (%) (Auto) 9 0-12 % Eosinophils (%) (Auto) 2 0-10 % Basophils (%) (Auto) 1 0-10 % Neutrophils # (Auto) 5.1 1.8-7.8 10^3/uL Lymphocytes # (Auto) 2.4 1.0-4.0 10^3/uL Monocytes # (Auto) 0.7 0.0-1.0 10^3/uL Eosinophils # (Auto) 0.2 0.0-0.3 10^3/uL Basophils # (Auto) 0.1 0.0-0.1 10^3/uL Immature Granulocyte # (Auto) 0.0 0.0-0.1 10^3/uL Sodium Level 142 135-145 MMOL/L Potassium Level 3.2 L 3.6-5.0 MMOL/L Chloride Level 108 H 98-107 MMOL/L Carbon Dioxide Level 22 21-32 MMOL/L Anion Gap 12 5-14 MMOL/L Blood Urea Nitrogen 19 H 7-18 MG/DL Creatinine 0.91 0.60-1.30 MG/DL Estimat Glomerular Filtration Rate 61 BUN/Creatinine Ratio 21 Glucose Level 120 H 70-105 MG/DL Calcium Level 5.7 *L 8.5-10.1 MG/DL Corrected Calcium 6.3 L 8.5-10.1 MG/DL Phosphorus Level 3.5 2.3-4.7 MG/DL Magnesium Level < 0.6 *L 1.6-2.4 MG/DL Total Bilirubin 0.5 0.1-1.0 MG/DL Aspartate Amino Transf (AST/SGOT) 53 H 5-34 U/L Alanine Aminotransferase (ALT/SGPT) 41 0-55 U/L Alkaline Phosphatase 115 40-136 U/L Total Protein 6.7 6.4-8.2 GM/DL Albumin 3.2 3.2-4.5 GM/DL My Orders Orders - SARAH KYLE Cbc With Automated Diff (01/10/23 12:06) Comprehensive Metabolic Panel (01/10/23 12:06) Magnesium (01/10/23 12:06) Phosphorus (01/10/23 12:06) Ekg Tracing (01/10/23 12:06) Calcium Chloride 10% Injection (Calcium (01/10/23 13:30) Magnesium 1 Gm/100 Ml Ivpb (Magnesium Angelo (01/10/23 13:30) Ed Admission (Communication) (01/10/23 13:20) Calcium Chloride 10% Injection (Calcium (01/10/23 13:45) Medications Given in ED Current Medications Medications Dose Ordered Sig/Alonzo Route Start Time Stop Time Status Last Admin Dose Admin Calcium Chloride 1 gm ONCE ONCE INJ 01/10/23 13:30 01/10/23 13:31 DC 01/10/23 13:40 1 GM Vital Signs/I&O 01/10/23 11:50 Temp 36.4 Pulse 65 Resp 16 B/P (MAP) 132/62 (85) Pulse Ox 98 Capillary Refill : Less Than 3 Seconds Blood Pressure Mean: 85 ECG Comment Atrial fibrillation, low QRS voltage in pericardial leads, 66 bpm, QRS duration 87 MS, QTc 462 MS. Departure Communication (PCP) Reviewed previous ER visits, H&P, lab testing. Differential diagnosis electrolyte abnormality, dizziness, kidney failure. Patient in no acute distress. Dizziness over the past 2 days with walking. This is her only complaint. Currently on doxycycline and finished prednisone secondary to bullous pemphigoid outbreak in her left lower extremity. This appears to be healing. She takes Lasix for chronic edema. Denies history of CHF. No chest pain, cough, shortness of breath, vomiting or diarrhea. History of hypocalcemia and hypomagnesia in the past. She is currently on vitamin D and oral calcium. EKG, general lab work was ordered. EKG showed atrial fibrillation with low QRS voltage. This appears chronic A-fib currently on Plavix. CBC grossly unremarkable. CMP showed less than 6.6 magnesium, calcium 5.7 with a corrected calcium 6.3. Potassium 3.3. Normal kidney function liver function. Patient was given 2 g of calcium chloride and 6 g of magnesium. This was discussed with hospitalist Dr. Dimas at the time of admission. She is currently asymptomatic but concern for critically low electrolytes. She has no paresthesia, cramps, weakness. No evidence confusions. No seizures. She is not hallucinating. Patient will be admitted for further evaluation. Excepted by Dr. Dimas Impression Primary Impression: Hypocalcemia Additional Impression: Hypomagnesemia Disposition: ADMITTED INPATIENT Condition: Stable Admissions Decision to Admit Reason: Admit from ER (General) Decision to Admit/Date: Jan 10, 2023 Time/Decision to Admit Time: 13:20 Departure-Patient Inst. Referrals: SACHIN MONTGOMERY MD (PCP/Family) Primary Care Physician SARAH KYLE Jan 10, 2023 12:26
[2023-01-10 12:39] LABS: ALBUMIN 3.2 GM/DL (3.2-4.5); CHLORIDE 108 MMOL/L (98-107); POTASSIUM 3.2 MMOL/L (3.6-5.0); SODIUM 142 MMOL/L (135-145)
[2023-01-10 12:41] LABS: GLUCOSE 120 MG/DL (70-105); TOTAL PROTEIN 6.7 GM/DL (6.4-8.2)
[2023-01-10 12:43] LABS: BILIRUBIN,TOTAL 0.5 MG/DL (0.1-1.0); CARBON DIOXIDE 22 MMOL/L (21-32)
[2023-01-10 12:45] LABS: ALKALINE PHOSPHATASE 115 U/L (40-136); CREATININE SERUM 0.91 MG/DL (0.60-1.30); GFR ESTIMATED 61; PHOSPHORUS 3.5 MG/DL (2.3-4.7)
[2023-01-10 12:46] LABS: BUN/CREATININE RATIO 21
[2023-01-10 12:48] LABS: ALANINE AMINOTRANSFERASE 41 U/L (0-55)
[2023-01-10 13:09] LABS: CALCIUM 5.7 MG/DL (8.5-10.1); MAGNESIUM < 0.6 MG/DL (1.6-2.4)
[2023-01-10] MEDS ORDERED: CALCIUM CHLORIDE 1 GM/10 ML (IMS) SYR INJ ONE ×3 (13:30→21:30)
[2023-01-10] MEDS: MAGNESIUM 1 GM/100 ML IVPB 100 ML IV SCH ×6 (13:32→18:44)
[2023-01-10] MEDS ORDERED: MILK OF MAGNESIA 400 MG/5 ML 30 ML UDC PO PRN (14:45)
[2023-01-10] MEDS ORDERED: MELATONIN 3 MG TABLET PO PRN (14:45)
[2023-01-10] MEDS ORDERED: ANTACID SUSP 30 ML UDC (MYLANTA) PO PRN (14:45)
[2023-01-10] MEDS ORDERED: polyethylene glycoL POWDER 17 GM (MIRALAX) PACK PO PRN (14:45)
[2023-01-10] MEDS ORDERED: ONDANSETRON 4 MG (ZOFRAN) ORAL DISSOLVE TAB PO PRN (14:45)
[2023-01-10] MEDS ORDERED: BISACODYL 10 MG SUPP (DULCOLAX) PR PRN (14:45)
[2023-01-10] MEDS ORDERED: NS IV 500 ML 500 ML IV PRN (14:45)
[2023-01-10] MEDS ORDERED: CALCIUM CARBONATE 500 MG (TUMS) TAB.CHEW PO PRN (14:45)
[2023-01-10] MEDS ORDERED: ONDANSETRON 4 MG/2 ML (SDV) Z0FRAN IV PRN (14:45)
[2023-01-10] MEDS ORDERED: ACETAMINOPHEN 325 MG TABLET PO PRN (14:45)
[2023-01-10] MEDS ORDERED: LACTULOSE SYRUP 10GM/15ML (ENULOSE) 30ML UDC PO PRN (14:45)
[2023-01-10 15:12] VITALS: BP 183/98
--- NOTE | 2023-01-10 15:24 | Physical Therapy Evaluation ---
PT Evaluation-General Medical Diagnosis Admission Date Jan 10, 2023 at 14:27 Medical Diagnosis: electrolytes imbalance Onset Date: Jan 10, 2023 Therapy Diagnosis Therapy Diagnosis: Gait deficit Height/Weight Height (Feet): 5 Height (Inches): 2.00 Weight (Pounds): 224 Weight (Ounces): 0.9 Precautions Precautions/Isolations: Fall Prevention, Standard Precautions Weight Bear Status Right Lower Extremity: Right Full Weight Bearing Left Lower Extremity: Left Full Weight Bearing Referral Physician: Dr. Dimas Reason for Referral: Evaluation/Treatment Medical History Pertinent Medical History: DM, GERD, HTN, Hypothroidism Reviewed History: Yes Social History Home: Assisted Living Current Living Status: Alone Entry Into Home: Level Entry Prior Prior Level of Function SCALE: Activities may be completed with or without assistive devices. 9-Afurqvxwji-rhneqvf completes the activity by him/herself with no assistance from a helper. 5-Set-up or Clean-up Assistance-helper sets up or cleans up; patient completes activity. Fletcher assists only prior to or following the activity. 4-Supervision or Touching Assistance-helper provides verbal cues and/or touching/steadying and/or contact guard assistance as patient completes activity. Assistance may be provided throughout the activity or intermittently. 3-Partial/Moderate Assistance-helper does LESS THAN HALF the effort. Fletcher lifts, holds or supports trunk or limbs, but provides less than half the effort. 2-Substantial/Maximal Assistance-helper does MORE THAN HALF the effort. Fletcher lifts or holds trunk or limbs and provides more than half the effort. 0-Ultemktfn-ebteiz does ALL the effort. Patient does none of the effort to complete the activity. Or, the assistance of 2 or more helpers is required for the patient to complete the activity. If activity was not attempted, code reason: 7-Patient Refused. 9-Not Applicable-not attempted and the patient did not perform the activity before the current illness, exacerbation or injury. 10-Not Attempted due to Environmental Limitations-(lack of equipment, weather restraints, etc.). 88-Not Attempted due to Medical Conditions or Safety Concerns. Bed Mobility: 6 Transfers (B,C,W/C): 6 Gait: 6 Indoor Mobility (Ambulation): Independent Stairs: Not Applicalbe Prior Devices Use: Walker PT Evaluation-Current Subjective Patient sitting in chair upon PT arrival, daughter in the room, patient agreeable to treatment. Patient rates pain at 0/10 currently. Objective Patient Orientation: Person, Place, Time, Situation Attachments: IV ROM/Strength ROM Lower Extremities WFLs BLEs all planes. Strength Lower Extremities 4+/5 BLEs all planes Sensory Vision: Wears Glasses Hearing: Functional Sensation Right Lower Extremit: Intact Sensation Left Lower Extremity: Intact Transfers Roll Left to Right (QC): 9 Sit to Lying (QC): 9 Lying to Sitting/Side of Bed(Q: 9 Sit to Stand (QC): 6 Chair/Fey-cv-Fvvbc Xfer(QC): 6 Patient reports she sleeps in a recliner at home, never a bed. Gait Does the Patient Walk?: Yes Mode of Locomotion: Walk Anticipated Mode of Locomotion: Walk Walk 10 feet (QC): 6 Walk 50 ft with 2 Turns(QC): 6 Walk 150 ft (QC): 4 Distance: 160 feet Gait Assistive Device: FWW Balance Sitting Static: Normal Sitting Dynamic: Normal Standing Static: Good Standing Dynamic: Good Assessment/Needs Patient at [facility]. No further PT needed at this time. Rehab Potential: Good PT Plan Treatment/Plan Treatment Plan: Discontinue PT Treatment Duration: Jan 10, 2023 Frequency: Time Time In: 1455 Time Out: 1510 DATE: Jan 10, 2023 Total Billed Treatment Time: 15 Total Billed Treatment Visit, FORTINO MURILLO PT Jan 10, 2023 15:24
[2023-01-10 16:10] VITALS: BP 174/66
[2023-01-10] MEDS: APIXABAN 5 MG (ELIQUIS) TABLET PO SCH (19:30)
[2023-01-10] MEDS: SENNOSIDES 8.6 MG (SENOKOT) TAB PO SCH (19:30)
[2023-01-10] MEDS: DOCUSATE SODIUM 100 MG (COLACE) CAP PO SCH (19:30)
[2023-01-10] MEDS: GABAPENTIN 300 MG (NEURONTIN) CAP PO SCH (19:30)
[2023-01-10 19:38] VITALS: BP 130/76
[2023-01-10 19:47] LABS: POTASSIUM 3.1 MMOL/L (3.6-5.0)
[2023-01-10 19:48] LABS: CALCIUM 7.1 MG/DL (8.5-10.1)
[2023-01-10 19:52] LABS: CREATININE SERUM 0.93 MG/DL (0.60-1.30)
[2023-01-10 19:55] LABS: MAGNESIUM 2.2 MG/DL (1.6-2.4)
[2023-01-10] MEDS ORDERED: KCL 20 MEQ TAB (K-DUR) PO ONE ×2 (21:30→21:54)
[2023-01-10 23:08] VITALS: BP 168/65
[2023-01-11 04:59] VITALS: BP 148/84
[2023-01-11 05:53] LABS: BASOPHILS # (AUTO) 0.1 10^3/uL (0.0-0.1); BASOPHILS % (AUTO) 1 % (0-10); EOSINOPHILS # (AUTO) 0.4 10^3/uL (0.0-0.3); EOSINOPHILS % (AUTO) 4 % (0-10); HEMATOCRIT 36 % (35-52); HEMOGLOBIN 11.2 g/dL (11.5-16.0); LYMPHOCYTES # (AUTO) 1.5 10^3/uL (1.0-4.0); LYMPHOCYTES % (AUTO) 16 % (12-44); MEAN CORPUSCULAR HEMOGLOBIN 28 pg (25-34); MEAN CORPUSCULAR HGB CONC 31 g/dL (32-36); MEAN CORPUSCULAR VOLUME 90 fL (80-99); MEAN PLATELET VOLUME 12.2 fL (9.0-12.2); MONOCYTES # (AUTO) 0.5 10^3/uL (0.0-1.0); MONOCYTES % (AUTO) 6 % (0-12); NEUTROPHILS # (AUTO) 6.7 10^3/uL (1.8-7.8); NEUTROPHILS % (AUTO) 73 % (42-75); PLATELET COUNT 177 10^3/uL (130-400); WHITE BLOOD COUNT 9.2 10^3/uL (4.3-11.0)
[2023-01-11] MEDS ORDERED: POTASSIUM BICARB 20 MEQ (EFFER-K) TABLET PO SCH (06:00)
[2023-01-11] MEDS ORDERED: MAGNESIUM 1 GM/100 ML IVPB 100 ML IV SCH (06:00)
[2023-01-11] MEDS ORDERED: KCL 20 MEQ TAB (K-DUR) PO SCH (06:00)
[2023-01-11] MEDS ORDERED: POTASSIUM CL 10MEQ/50ML IVPB 50 ML IV SCH (06:00)
[2023-01-11 06:15] LABS: CALCIUM 7.5 MG/DL (8.5-10.1); CREATININE SERUM 0.94 MG/DL (0.60-1.30); MAGNESIUM 1.8 MG/DL (1.6-2.4); POTASSIUM 4.2 MMOL/L (3.6-5.0)
[2023-01-11] MEDS: MAGNESIUM 1 GM/100 ML IVPB 100 ML IV SCH ×2 (06:21→06:24)
[2023-01-11] MEDS ORDERED: LEVOTHYROXINE 75 MCG (LEVOTHROID) TABLET PO SCH (06:30)
[2023-01-11] MEDS ORDERED: VENlafaxine XR 37.5 MG (EFFEXOR XR) CAP PO SCH (07:00)
[2023-01-11 07:37] VITALS: BP 178/74
[2023-01-11] MEDS: GABAPENTIN 300 MG (NEURONTIN) CAP PO SCH (07:45)
[2023-01-11] MEDS: APIXABAN 5 MG (ELIQUIS) TABLET PO SCH (07:45)
[2023-01-11] MEDS: DOCUSATE SODIUM 100 MG (COLACE) CAP PO SCH (07:46)
[2023-01-11] MEDS: SENNOSIDES 8.6 MG (SENOKOT) TAB PO SCH (07:46)
[2023-01-11] MEDS ORDERED: amLODIPine 10 MG (NORVASC) TAB PO SCH (09:00)
[2023-01-11] MEDS ORDERED: amLODIPine 5 MG (NORVASC) TAB PO SCH (09:00)
[2023-01-11] MEDS ORDERED: MAGN250T35 PO (09:34)
[2023-01-11 11:31] VITALS: BP 167/77
--- NOTE | 2023-01-11 14:46 | Short Stay Summary-Hospitalist ---
History of Present Illness HPI/Chief Complaint Calista Fry is an 87 year old female who presented to the ER due to abnormal labs. She was having weakness and had some labs done by her PCP. She had significant electrolyte abnormalities with severe hypomagnesemia and hypocalcemia, as well as hypokalemia. She denied any chest pain or palpitations. She denies shortness of breath. She has no complaints. Source: patient Exam Limitations: no limitations Date Seen 01/11/23 Time Seen by a Provider: 09:25 Attending Physician Sachin Larios MD PCP Admitting Physician: Yenny Dimas MD Attending Physician: Yenny Dimas MD Referring Physician Date of Admission Jan 10, 2023 at 14:27 Home Medications & Allergies Home Medications Reviewed patient Home Medication Reconciliation performed by pharmacy medication reconciliations parking technician and/or nursing. Patients Allergies have been reviewed. Allergies Allergies Coded Allergies No Known Drug Allergies (Ojzsisms39/17/19) Past Icmakng-Tdkyyq-Jismxq Hx Patient Social History Tobacco Use?: No Use of E-Cig and/or Vaping dev: No Substance use?: No Alcohol Use?: No Pt feels they are or have been: No Immunizations Up To Date Date of Influenza Vaccine: Apr 20, 2011 First/Initial COVID19 Vaccinat: RECEIVED, UNK WHEN Second COVID19 Vaccination Wally: RECEIVED, UNK WHEN Tetanus Booster (TDap): Unknown Hepatitis A: No Hepatitis B: No PED Vaccines UTD: No Date of Pneumonia Vaccine: Aug 21, 2009 Current Status Advance Directives: No Communicates: Verbally Primary Language: Ukrainian Preferred Spoken Language: Ukrainian Is interpretation needed?: No Sensory deficits: Vision impairment Implanted or Applied Medical D: Orthopedic hardware Past Medical History Surgeries: Abdominal, Appendectomy, Gallbladder, Hysterectomy, Joint Replac ement, Orthopedic, Tonsillectomy Atrial Fibrillation, Chronic Edema/Swelling, High Cholesterol, Hypertension Neuropathy Sexually Transmitted Disease: No HIV/AIDS: No Gastroesophageal Reflux, Hiatal Hernia, Irritable Bowel Degenerate Disk Disease, Arthritis, Chronic Back Pain Diabetes, Insulin dep, Hypothyroidsim Cataract Loss of Vision: Denies Hearing Impairment: Denies Anxiety, Depression Pruritis Blood Disorders: No Family Medical History Cancer 03 MOTHER (STOMACH COLON ESOPHAGEAL) Cancer of colon 03 MOTHER 09 SISTER Family history: Cardiovascular disease 09 SISTER (HAS PACEMAKER) Family history: Diabetes mellitus 03 FATHER Myocardial infarction 03 FATHER No Family History of: Abdominal aortic aneurysm Bryan's disease Alcoholism Aphasia Cataract Chest pain Congenital heart disease Congestive heart failure Cystic fibrosis Dementia Dysphagia Family history: Allergy Family history: Alzheimer's disease Family history: Arthritis Family history: Asthma Family history: Coronary thrombosis Family history: Gastrointestinal disease Family history: Glaucoma Family history: Hypertension Family history: Osteoporosis Family history: Thyroid disorder Headache Hearing loss Heart disease Hereditary disease History of - anemia History of - respiratory disease History of drug abuse Human immunodeficiency virus (HIV) seropositivity Hypercholesterolemia Infertile Kidney disease Malignant neoplasm of lung Parkinson's disease Prostate cancer Psychotic disorder Seizure disorder Stroke Tuberculosis Visual impairment Hypertension, Other Conditions/Hx Review of Systems Constitutional: weakness Respiratory: no symptoms reported Cardiovascular: no symptoms reported Gastrointestinal: no symptoms reported Physical Exam Physical Exam Vital Signs Vital Signs - First Documented 01/10/23 01/10/23 11:50 14:25 Temp 36.4 Pulse 65 Resp 16 B/P (MAP) 132/62 (85) Pulse Ox 98 O2 Delivery Room Air Capillary Refill : Less Than 3 Seconds Height, Weight, BMI Height: 5'2.00" Weight: 224lbs. 0.9oz. 101.430472lc; 36.10 BMI Method:Stated General Appearance: No Apparent Distress, Obese Eyes: Bilateral Eye Normal Inspection, Bilateral Eye PERRL, Bilateral Eye EOMI HEENT: PERRL/EOMI, Pharynx Normal Neck: Normal Inspection, Supple Respiratory: Lungs Clear, Normal Breath Sounds, No Respiratory Distress Cardiovascular: Regular Rate, Rhythm, No Edema, No JVD Gastrointestinal: Normal Bowel Sounds, Non Tender, Soft Extremity: Normal Inspection, Non Tender, Pedal Edema Neurologic/Psychiatric: Alert, Oriented x3, Normal Mood/Affect Skin: Other (Mild erythema lower extremity. No fluctuant mass. No active drainage.) Results Results/Procedures Labs Laboratory Tests 01/10/23 12:10 01/10/23 19:24 01/11/23 05:35 Patient resulted labs reviewed. Short Stay Diagnosis Discharge Diagnosis-Short Stay Admission Diagnosis Electrolyte abnromalities Final Discharge Diagnosis Hypocalcemia, Hypomagnesemia, Hypokalemia Conclusion Plan Hypocalcemia Hypomagnesemia Hypokalemia Electrolytes replaced and corrected Repeat labs next week Follow up with Dr. Larios in 2 weeks as scheduled Continue supplements, increase magnesium Diagnosis/Problems Diagnosis/Problems (1) Hypocalcemia Status: Acute (2) Hypomagnesemia Status: Acute (3) Hypokalemia Status: Acute Copy Copies To 1: SACHIN LARIOS MD, JARIN M MD Jan 11, 2023 14:46
== END 2023-01-11 09:36 | disposition home or self-care (01) ==
LOC: EDUNIT# 11:45 → ER 11:47 → UNDOADMOB 14:27 → 4TH 14:27 → UNDODISOB 01-11 09:36
PROVIDERS: ADMIT Internal Medicine; ATTEND Internal Medicine
DX: E83.51 Hypocalcemia (principal); E83.42 Hypomagnesemia; E87.6 Hypokalemia; R53.1 Weakness; R60.9 Edema, unspecified; E66.01 Morbid (severe) obesity due to excess calories; S81.802A Unspecified open wound, left lower leg, initial encounter; Z79.01 Long term (current) use of anticoagulants; Z79.899 Other long term (current) drug therapy; Z68.36 Body mass index [BMI] 36.0-36.9, adult
CPT/HCPCS: 80048 ×2; 80053; 83735 ×2; 84100; 85025 ×2; 93005; 96372; 96376 ×2; 97161; 99284; G0378; 36415

== ENCOUNTER 2023-01-31 12:56 | Emergency (ER) | payer MEDICARE, BC ==
[~2023-01-31] VITALS: Ht 157 cm; Wt 90.7 kg
[~2023-01-31 12:56] MED LIST changes: -POTA10CA44 PO; +POTA10CA84 PO
[2023-01-31 13:01] VITALS: BP 140/92
--- NOTE | 2023-01-31 13:20 | ED General ---
General Chief Complaint: General Problems/Pain Stated Complaint: LOW CALCIUM AND LOW MAGNESIUM Source of Information: Patient Exam Limitations: No Limitations History of Present Illness Date Seen by Provider: Jan 31, 2023 Time Seen by Provider: 13:08 Initial Comments Patient is an 87 yo F here for hypocalcemia and low mag levels. She was called by assisted living nurse and told she had critical lab values and to come to ER. She is completely asymptomatic. All other systems reviewed and negative except documented per HPI. Voice recognition software was used to help create this chart Allergies and Home Medications Allergies Coded Allergies: No Known Drug Allergies (Verified , 05/06/19) Patient Home Medication List Home Medication List Reviewed: Yes Acetaminophen (Tylenol Extra Strength) 500 Mg Tablet, 500 MG PO QID, (Reported) Entered as Reported by: DIANA RASHID on 10/30/22 09 Amlodipine Besylate (Amlodipine Besylate) 10 Mg Tablet, 10 MG PO DAILY, (Reported) Entered as Reported by: ABBY VAZQUEZ on 11/16/15 1717 Apixaban (Eliquis) 5 Mg Tablet, 5 MG PO BID, (Reported) Entered as Reported by: KEITH ROBLEDO on 03/02/21 1454 Atorvastatin Calcium (Atorvastatin Calcium) 80 Mg Tablet, 80 MG PO HS, (Reported) Entered as Reported by: KEITH ROBLEDO on 03/02/21 1454 Calcium Carbonate/Vitamin D3 (Calcium 600 + Vit D 400 Tablet) 600 Mg Calcium-10 Mcg (400 Unit) Tablet, 600 MG PO TIDWM Prescribed by: SACHIN MONTGOMERY on 11/01/22 08 Carbidopa/Levodopa (Carbidopa-Levodopa 25-100 Tab) 25 Mg-100 Mg Tablet, 1 EA PO BID, (Reported) Entered as Reported by: DIANA RASHID on 01/24/22 1151 Diclofenac Sodium (Diclofenac Sodium) 1 % Gel..gram., 2 GM TOP UD PRN for PAIN-B REAKTHROUGH, (Reported) Entered as Reported by: DIANA RASHID on 10/30/22 0932 Ergocalciferol (Vitamin D2) (Vitamin D2) 1,250 Mcg (70059 Unit) Capsule, 1.25 MG PO We@09 Prescribed by: SACHIN MONTGOMERY on 11/01/22 08 Furosemide (Furosemide) 20 Mg Tablet, 20 MG PO Q48H, (Reported) Entered as Reported by: DIANA RASHID on 10/30/22 0932 Gabapentin (Neurontin) 300 Mg Capsule, 300 MG PO BID, (Reported) Entered as Reported by: DIANA RASHID on 01/24/22 115 Gabapentin (Gabapentin) 400 Mg Capsule, 400 MG PO 1200, (Reported) Entered as Reported by: DIANA RASHID on 01/24/22 1151 Guaifenesin (Mucinex) 600 Mg Tab.er.12h, 600 MG PO Q12H PRN for ALLERGY, (Reported) Entered as Reported by: DIANA RASHID on 10/30/22 0932 Hydrocodone/Acetaminophen (Hydrocodone-Acetamin 10-325 mg) 10 Mg-325 Mg Tablet, 1 EA PO Q6H PRN for PAIN-MODERATE (5-7), (Reported) Entered as Reported by: DIANA RASHID on 10/30/22931 Hydrocortisone (Anusol-Hc) 2.5 % Cream..g., 1 APPLIC RC TID PRN for ITCHING, (Reported) Entered as Reported by: DIANA RASHID on 01/24/22 115 Hydroxyzine HCl (Hydroxyzine HCl) 25 Mg Tablet, 25 MG PO Q8H PRN for ANXIETY, (R eported) Entered as Reported by: KEITH ROBLEDO on 03/02/21 145 Insulin Aspart (Novolog Flexpen) 100 Unit/Ml (3 Ml) Solution, UNITS SQ AC, (Reported) Entered as Reported by: DIANA RASHID on 10/30/22931 Insulin Detemir (Levemir Flextouch) 100 Unit/Ml (3 Ml) Insuln.pen, 25 UNITS SQ HS, (Reported) Entered as Reported by: KEITH ROBLEDO on 03/02/21 145 Levothyroxine Sodium (Synthroid) 75 Mcg Tablet, 75 MCG PO DAILY, (Reported) Entered as Reported by: KEITH ROBLEDO on 03/02/21 145 Loperamide HCl (Loperamide) 2 Mg Capsule, 2 MG PO Q48H Prescribed by: SACHIN MONTGOMERY on 11/01/22 0827 Magnesium Oxide (Magnesium Oxide) 250 Mg Tablet, 500 MG PO DAILY Prescribed by: CHOLO HUANG on 01/11/23 0934 Methyl Salicylate/Menth/Camph (Muscle Rub Ultra Str Cream) 30 %-10 %-4 % Cream..g., 1 APPLIC TP TID PRN for PAIN-BREAKTHROUGH, (Reported) Entered as Reported by: DIANA RASHID on 01/24/22 1159 Omeprazole (Omeprazole) 20 Mg Capsule.dr, 20 MG PO DAILY, (Reported) Entered as Reported by: DIANA RASHID on 10/30/22 0940 Pediatric Multivit No.203/Iron (Flintstones with Iron Tab Chew) 18 Mg Iron Tab.chew, 18 MG PO DAILY, (Reported) Entered as Reported by: DIANA RASHID on 10/30/22 0932 Potassium Chloride (Potassium Chloride) 20 Meq Tablet.er, 20 MEQ PO Q48H, (Reported) Entered as Reported by: DIANA RASHID on 10/30/22 0932 Pramipexole Di-HCl (Pramipexole Dihydrochloride) 0.125 Mg Tablet, 0.125 MG PO 1700, (Reported) Entered as Reported by: DIANA RASHID on 01/24/22 1151 Psyllium Husk/Aspartame (Metamucil Fiber Singles Packet) 3.4 Gram Powd.pack, 0.5 PACKET PO TIDWM Prescribed by: SACHIN MONTGOMERY on 11/01/22 08 Tolterodine Tartrate (Tolterodine Tartrate ER) 4 Mg Cap.er.24h, 4 MG PO DAILY, (Reported) Entered as Reported by: ABBY VAZQUEZ on 11/16/15 1717 Venlafaxine HCl (Venlafaxine HCl) 37.5 Mg Tab, 37.5 MG PO DAILY, (Reported) Entered as Reported by: DIANA RASHID on 01/24/22 115 Vitamin D (Vitamin D3) 10 Mcg (400 Unit) Tablet, 10 MCG PO DAILY@0700 Prescribed by: SACHIN MONTGOMERY on 11/01/22 08 [Magic Mouth Wash] SUSP, 15 ML PO QID, (Reported) Entered as Reported by: DIANA RASHID on 10/30/22 0935 Review of Systems Review of Systems Constitutional: see HPI Past Dhrhubp-Khmpkg-Apdzvk Hx Patient Social History Tobacco Use?: No Use of E-Cig and/or Vaping dev: No Substance use?: No Alcohol Use?: No Immunizations Up To Date Tetanus Booster (TDap): Unknown PED Vaccines UTD: No First/Initial COVID19 Vaccinat: RECEIVED, UNK WHEN Second COVID19 Vaccination Wally: RECEIVED, UNK WHEN Third COVID19 Vaccination Date: RECEIVED, UNK WHEN Past Medical History Surgery/Hospitalization HX: DM, HTN, R TOTAL KNEE, GB, HYST. Surgeries: Yes (R KNEE REPLACEMENT, hernia w/mesh placement Dr Jones ) Abdominal, Appendectomy, Gallbladder, Hysterectomy, Joint Replacement, Orthopedic, Tonsillectomy Respiratory: No Cardiac: Yes (INTERMITTENT ATRIAL FIBRILLATION ) Atrial Fibrillation, Chronic Edema/Swelling, High Cholesterol, Hypertension Neurological: Yes (? PARKINSON'S ? ) Neuropathy Reproductive Disorders: No Female Reproductive Disorders: Denies Sexually Transmitted Disease: No HIV/AIDS: No Gastrointestinal: Yes (GERD) Gastroesophageal Reflux, Hiatal Hernia, Irritable Bowel Musculoskeletal: Yes (ARTHRITIS) Degenerate Disk Disease, Arthritis, Chronic Back Pain Endocrine: Yes (MORBID OBESTIY) Diabetes, Insulin dep, Hypothyroidsim Cataract Loss of Vision: Denies Hearing Impairment: Denies Cancer: No Psychosocial: Yes Anxiety, Depression Integumentary: Yes (bullous pemphigoid) Pruritis Blood Disorders: No Family Medical History Cancer 03 MOTHER (STOMACH COLON ESOPHAGEAL) Cancer of colon 03 MOTHER 09 SISTER Family history: Cardiovascular disease 09 SISTER (HAS PACEMAKER) Family history: Diabetes mellitus 03 FATHER Myocardial infarction 03 FATHER No Family History of: Abdominal aortic aneurysm [place]'s disease Alcoholism Aphasia Cataract Chest pain Congenital heart disease Congestive heart failure Cystic fibrosis Dementia Dysphagia Family history: Allergy Family history: Alzheimer's disease Family history: Arthritis Family history: Asthma Family history: Coronary thrombosis Family history: Gastrointestinal disease Family history: Glaucoma Family history: Hypertension Family history: Osteoporosis Family history: Thyroid disorder Headache Hearing loss Heart disease Hereditary disease History of - anemia History of - respiratory disease History of drug abuse Human immunodeficiency virus (HIV) seropositivity Hypercholesterolemia Infertile Kidney disease Malignant neoplasm of lung Parkinson's disease Prostate cancer Psychotic disorder Seizure disorder Stroke Tuberculosis Visual impairment Hypertension, Other Conditions/Hx Physical Exam Vital Signs Vital Signs - First Documented 01/31/23 13:01 Temp 36.7 Pulse 81 Resp 20 B/P (MAP) 140/92 (108) Pulse Ox 94 O2 Delivery Room Air Capillary Refill : Height, Weight, BMI Height: 5'2.00" Weight: 224lbs. 0.9oz. 101.477241zl; 36.10 BMI Method:Stated General Appearance: No Apparent Distress, WD/WN HEENT: Normal ENT Inspection, Pharynx Normal Neck: Full Range of Motion, Non Tender, Supple Respiratory: Chest Non Tender, Lungs Clear, Normal Breath Sounds, No Accessory Muscle Use, No Respiratory Distress Cardiovascular: Regular Rate, Rhythm, No Murmur, Normal Peripheral Pulses Gastrointestinal: Normal Bowel Sounds, Non Tender, Soft Extremity: Normal Capillary Refill, Normal Inspection, Normal Range of Motion, Non Tender, No Calf Tenderness Neurologic/Psychiatric: Alert, Oriented x3, No Motor/Sensory Deficits, Normal Mood/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 She has labs printed with her from this AM. Ca is 6.7, up from 5.2 on 01/10, Mg is 0.7. I spoke with her primary doctor, Dr. MONTGOMERY. She does not [place] any [place] so she will have her office reach out to her to schedule follow-up in the very near future for reevaluation. This is a chronic issue for her. No indication for emergent treatment at this time. Impression Primary Impression: Hypocalcemia Additional Impression: Hypomagnesemia Disposition: 01 HOME, SELF-CARE Condition: Stable Departure-Patient Inst. Referrals: SACHIN MONTGOMERY MD (PCP/Family) Primary Care Physician Patient Instructions: Low Magnesium Level (DC), Hypocalcemia (DC) Add. Discharge Instructions: I spoke with Dr. MONTGOMERY. Her office will reach out to schedule follow-up appointment in the near future to recheck your labs and to do some further evaluation. There is no indication for emergent treatment at this time. All discharge instructions reviewed with patient and/or family. Voiced understanding. ROGRE YE DO Jan 31, 2023 13:20
== END 2023-01-31 13:32 | disposition home or self-care (01) ==
LOC: EDUNIT# 12:56 → ER 12:57
DX: E83.51 Hypocalcemia (principal); E83.42 Hypomagnesemia; E66.01 Morbid (severe) obesity due to excess calories; Z68.36 Body mass index [BMI] 36.0-36.9, adult
CPT/HCPCS: 99281

== ENCOUNTER 2023-02-20 12:49 | Observation (INO) | payer MEDICARE, BC ==
[~2023-02-20] VITALS: Ht 157.5 cm; Wt 87.6 kg
--- NOTE | 2023-02-20 13:06 | ED General ---
General Chief Complaint: General Problems/Pain Stated Complaint: LOW MAGNESIUM Source of Information: Patient Exam Limitations: No Limitations History of Present Illness Date Seen by Provider: Feb 20, 2023 Time Seen by Provider: 13:02 Initial Comments Patient is a 87-year-old female with a history of CVA, diabetes, CHF, hypomagnesia and hypocalcemia who presents the ED for abnormal electrolytes. Patient had lab work drawn todat and was sent to the ED for IV infusion. Patient had critical calcium and magnesium levels today. On February 13 they increased patient's magnesium level to 400 mg twice daily. Patient is currently on calcium 600 mg 3 times daily. She denies of any complaints such as chest pain, shortness of breath, headache, dizziness, seizures, muscle pain or weakness, dysuria frequent urination, abnormal blood pressure, confusion. According to family at bedside she is at her normal baseline. She is a resident at [facility] Allergies and Home Medications Allergies Coded Allergies: No Known Drug Allergies (Verified , 05/06/19) Patient Home Medication List Home Medication List Reviewed: Yes Acetaminophen (Tylenol Extra Strength) 500 Mg Tablet, 500 MG PO QID, (Reported) Entered as Reported by: DIANA RASHID on 10/30/22 0932 Amlodipine Besylate (Amlodipine Besylate) 10 Mg Tablet, 10 MG PO DAILY, (Report ed) Entered as Reported by: ABBY VAZQUEZ on 11/16/15 1717 Apixaban (Eliquis) 5 Mg Tablet, 5 MG PO BID, (Reported) Entered as Reported by: KEITH ROBLEDO on 03/02/21 1454 Atorvastatin Calcium (Atorvastatin Calcium) 80 Mg Tablet, 80 MG PO HS, (Reported) Entered as Reported by: KEITH ROBLEDO on 03/02/21 1454 Calcium Carbonate/Vitamin D3 (Calcium 600 + Vit D 400 Tablet) 600 Mg Calcium-10 Mcg (400 Unit) Tablet, 600 MG PO TIDWM Prescribed by: SACHIN MONTGOMERY on 11/01/22 0827 Carbidopa/Levodopa (Carbidopa-Levodopa 25-100 Tab) 25 Mg-100 Mg Tablet, 1 EA PO BID, (Reported) Entered as Reported by: DIANA RASHID on 01/24/22 1151 Diclofenac Sodium (Diclofenac Sodium) 1 % Gel..gram., 2 GM TOP UD PRN for PAIN- BREAKTHROUGH, (Reported) Entered as Reported by: DIANA RASHID on 10/30/22931 Ergocalciferol (Vitamin D2) (Vitamin D2) 1,250 Mcg (38489 Unit) Capsule, 1.25 MG PO We@09 Prescribed by: SACHIN MONTGOMERY on 11/01/22 0827 Furosemide (Furosemide) 20 Mg Tablet, 20 MG PO Q48H, (Reported) Entered as Reported by: DIANA RASHID on 10/30/22 09 Gabapentin (Neurontin) 300 Mg Capsule, 300 MG PO BID, (Reported) Entered as Reported by: DIANA RASHID on 01/24/22 115 Gabapentin (Gabapentin) 400 Mg Capsule, 400 MG PO 1200, (Reported) Entered as Reported by: DIANA RASHID on 01/24/22 115 Guaifenesin (Mucinex) 600 Mg Tab.er.12h, 600 MG PO Q12H PRN for ALLERGY, (Reported) Entered as Reported by: DIANA RASHID on 10/30/22931 Hydrocodone/Acetaminophen (Hydrocodone-Acetamin 10-325 mg) 10 Mg-325 Mg Tablet, 1 EA PO Q6H PRN for PAIN-MODERATE (5-7), (Reported) Entered as Reported by: DIANA RASHID on 10/30/22931 Hydrocortisone (Anusol-Hc) 2.5 % Cream..g., 1 APPLIC RC TID PRN for ITCHING, (Reported) Entered as Reported by: DIANA RASHID on 01/24/22 115 Hydroxyzine HCl (Hydroxyzine HCl) 25 Mg Tablet, 25 MG PO Q8H PRN for ANXIETY, (Reported) Entered as Reported by: KEITH ROBLEDO on 03/02/21 145 Insulin Aspart (Novolog Flexpen) 100 Unit/Ml (3 Ml) Solution, UNITS SQ AC, (Reported) Entered as Reported by: DIANA RASHID on 10/30/22931 Insulin Detemir (Levemir Flextouch) 100 Unit/Ml (3 Ml) Insuln.pen, 25 UNITS SQ HS, (Reported) Entered as Reported by: KEITH ROBLEDO on 03/02/21 145 Levothyroxine Sodium (Synthroid) 75 Mcg Tablet, 75 MCG PO DAILY, (Reported) Entered as Reported by: KEITH ROBLEDO on 03/02/21 1454 Loperamide HCl (Loperamide) 2 Mg Capsule, 2 MG PO Q48H Prescribed by: SACHIN MONTGOMERY on 11/01/22 08 Magnesium Oxide (Magnesium Oxide) 250 Mg Tablet, 500 MG PO DAILY Prescribed by: CHOLO HUANG on 01/11/23 0934 Methyl Salicylate/Menth/Camph (Muscle Rub Ultra Str Cream) 30 %-10 %-4 % Cream..g., 1 APPLIC TP TID PRN for PAIN-BREAKTHROUGH, (Reported) Entered as Reported by: DIANA RASHID on 01/24/22 1159 Omeprazole (Omeprazole) 20 Mg Capsule.dr, 20 MG PO DAILY, (Reported) Entered as Reported by: DIANA RASHID on 10/30/22 0940 Pediatric Multivit No.203/Iron (Flintstones with Iron Tab Chew) 18 Mg Iron Tab.chew, 18 MG PO DAILY, (Reported) Entered as Reported by: DIANA RASHID on 10/30/22 0932 Potassium Chloride (Potassium Chloride) 20 Meq Tablet.er, 20 MEQ PO Q48H, (Reported) Entered as Reported by: DIANA RASHID on 10/30/22 0932 Pramipexole Di-HCl (Pramipexole Dihydrochloride) 0.125 Mg Tablet, 0.125 MG PO 1700, (Reported) Entered as Reported by: DIANA RASHID on 01/24/22 115 Psyllium Husk/Aspartame (Metamucil Fiber Singles Packet) 3.4 Gram Powd.pack, 0.5 PACKET PO TIDWM Prescribed by: SACHIN MONTGOMERY on 11/01/22 08 Tolterodine Tartrate (Tolterodine Tartrate ER) 4 Mg Cap.er.24h, 4 MG PO DAILY, (Reported) Entered as Reported by: ABBY VAZQUEZ on 11/16/15 1717 Venlafaxine HCl (Venlafaxine HCl) 37.5 Mg Tab, 37.5 MG PO DAILY, (Reported) Entered as Reported by: DIANA RASHID on 01/24/22 115 Vitamin D (Vitamin D3) 10 Mcg (400 Unit) Tablet, 10 MCG PO DAILY@0700 Prescribed by: SACHIN MONTGOMERY on 11/01/22 08 [Magic Mouth Wash] SUSP, 15 ML PO QID, (Reported) Entered as Reported by: DIANA RASHID on 10/30/22 0960 Review of Systems Review of Systems Constitutional: No chills, No diaphoresis, No malaise, No weakness EENTM: No ear pain, No blurred vision, No double vision Respiratory: No cough, No dyspnea on exertion Cardiovascular: No chest pain Gastrointestinal: No abdominal pain, No diarrhea, No nausea, No vomiting Genitourinary: No decreased output, No discharge Musculoskeletal: No back pain, No joint pain Skin: No change in color, No change in hair/nails All Other Systems Reviewed Negative Unless Noted: Yes Past Yxkjhdb-Grukpz-Trzzsu Hx Patient Social History Tobacco Use?: No Use of E-Cig and/or Vaping dev: No Substance use?: No Alcohol Use?: No Immunizations Up To Date Tetanus Booster (TDap): Unknown PED Vaccines UTD: No Influenza Vaccine Up-to-Date: No; Not Current First/Initial COVID19 Vaccinat: RECEIVED, UNK WHEN Second COVID19 Vaccination Wally: RECEIVED, UNK WHEN Third COVID19 Vaccination Date: RECEIVED, UNK WHEN Past Medical History Surgery/Hospitalization HX: DM, HTN, R TOTAL KNEE, GB, HYST. Surgeries: Yes (R KNEE REPLACEMENT, hernia w/mesh placement Dr Jones ) Abdominal, Appendectomy, Gallbladder, Hysterectomy, Joint Replacement, Orthopedic, Tonsillectomy Respiratory: No Cardiac: Yes (INTERMITTENT ATRIAL FIBRILLATION ) Atrial Fibrillation, Chronic Edema/Swelling, High Cholesterol, Hypertension Neurological: Yes (? PARKINSON'S ? ) Neuropathy Reproductive Disorders: No Female Reproductive Disorders: Denies Sexually Transmitted Disease: No HIV/AIDS: No Gastrointestinal: Yes (GERD) Gastroesophageal Reflux, Hiatal Hernia, Irritable Bowel Musculoskeletal: Yes (ARTHRITIS) Degenerate Disk Disease, Arthritis, Chronic Back Pain Endocrine: Yes (MORBID OBESTIY) Diabetes, Insulin dep, Hypothyroidsim Cataract Loss of Vision: Denies Hearing Impairment: Denies Cancer: No Psychosocial: Yes Anxiety, Depression Integumentary: Yes (bullous pemphigoid) Pruritis Blood Disorders: No Family Medical History Cancer 03 MOTHER (STOMACH COLON ESOPHAGEAL) Cancer of colon 03 MOTHER 09 SISTER Family history: Cardiovascular disease 09 SISTER (HAS PACEMAKER) Family history: Diabetes mellitus 03 FATHER Myocardial infarction 03 FATHER No Family History of: Abdominal aortic aneurysm [place] disease Alcoholism Aphasia Cataract Chest pain Congenital heart disease Congestive heart failure Cystic fibrosis Dementia Dysphagia Family history: Allergy Family history: Alzheimer's disease Family history: Arthritis Family history: Asthma Family history: Coronary thrombosis Family history: Gastrointestinal disease Family history: Glaucoma Family history: Hypertension Family history: Osteoporosis Family history: Thyroid disorder Headache Hearing loss Heart disease Hereditary disease History of - anemia History of - respiratory disease History of drug abuse Human immunodeficiency virus (HIV) seropositivity Hypercholesterolemia Infertile Kidney disease Malignant neoplasm of lung Parkinson's disease Prostate cancer Psychotic disorder Seizure disorder Stroke Tuberculosis Visual impairment Hypertension, Other Conditions/Hx Physical Exam Vital Signs Vital Signs - First Documented 02/20/23 12:55 Temp 37.1 Pulse 71 Resp 14 B/P (MAP) 144/80 (101) O2 Delivery Room Air Capillary Refill : Less Than 3 Seconds Height, Weight, BMI Height: 5'2.00" Weight: 224lbs. 0.9oz. 101.651391zq; 36.00 BMI Method:Stated General Appearance: No Apparent Distress, WD/WN Eyes: Bilateral Eye Normal Inspection, Bilateral Eye PERRL, Bilateral Eye EOMI HEENT: PERRL/EOMI, TMs Normal, Normal ENT Inspection, Pharynx Normal Neck: Full Range of Motion, Normal Inspection, Non Tender, Supple Respiratory: Chest Non Tender, Lungs Clear, Normal Breath Sounds, No Accessory Muscle Use, No Respiratory Distress Cardiovascular: Regular Rate, Rhythm, No Edema, No Gallop, No JVD Gastrointestinal: Normal Bowel Sounds, No Organomegaly Back: Normal Inspection, No CVA Tenderness, No Vertebral Tenderness Extremity: Normal Capillary Refill, Normal Inspection, Normal Range of Motion, Non Tender Neurologic/Psychiatric: Alert, Oriented x3, No Motor/Sensory Deficits, Normal Mood/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, 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 Norm as Tested Skin: Other (Swelling bilateral lower extremities with stasis dermatitis) Progress/Results/Core Measures Suspected Sepsis SIRS Temperature: Pulse: Respiratory Rate: Laboratory Tests 02/20/23 13:07: White Blood Count 6.1 Blood Pressure / Mean: Laboratory Tests 02/20/23 13:07: Creatinine 0.94, Platelet Count 179, Total Bilirubin 0.4 Results/Orders Lab Results Laboratory Tests Test 02/20/23 13:07 Range/Units White Blood Count 6.1 4.3-11.0 10^3/uL Red Blood Count 3.95 3.80-5.11 10^6/uL Hemoglobin 11.0 L 11.5-16.0 g/dL Hematocrit 37 35-52 % Mean Corpuscular Volume 93 80-99 fL Mean Corpuscular Hemoglobin 28 25-34 pg Mean Corpuscular Hemoglobin Concent 30 L 32-36 g/dL Red Cell Distribution Width 15.5 H 10.0-14.5 % Platelet Count 179 130-400 10^3/uL Mean Platelet Volume 11.4 9.0-12.2 fL Immature Granulocyte % (Auto) 1 % Neutrophils (%) (Auto) 59 42-75 % Lymphocytes (%) (Auto) 28 12-44 % Monocytes (%) (Auto) 7 0-12 % Eosinophils (%) (Auto) 5 0-10 % Basophils (%) (Auto) 1 0-10 % Neutrophils # (Auto) 3.6 1.8-7.8 10^3/uL Lymphocytes # (Auto) 1.7 1.0-4.0 10^3/uL Monocytes # (Auto) 0.4 0.0-1.0 10^3/uL Eosinophils # (Auto) 0.3 0.0-0.3 10^3/uL Basophils # (Auto) 0.0 0.0-0.1 10^3/uL Immature Granulocyte # (Auto) 0.0 0.0-0.1 10^3/uL Sodium Level 137 135-145 MMOL/L Potassium Level 4.7 3.6-5.0 MMOL/L Chloride Level 106 98-107 MMOL/L Carbon Dioxide Level 23 21-32 MMOL/L Anion Gap 8 5-14 MMOL/L Blood Urea Nitrogen 15 7-18 MG/DL Creatinine 0.94 0.60-1.30 MG/DL Estimat Glomerular Filtration Rate 59 BUN/Creatinine Ratio 16 Glucose Level 168 H 70-105 MG/DL Calcium Level 7.5 L 8.5-10.1 MG/DL Corrected Calcium 8.0 L 8.5-10.1 MG/DL Magnesium Level 0.7 *L 1.6-2.4 MG/DL Total Bilirubin 0.4 0.1-1.0 MG/DL Aspartate Amino Transf (AST/SGOT) 55 H 5-34 U/L Alanine Aminotransferase (ALT/SGPT) 27 0-55 U/L Alkaline Phosphatase 143 H 40-136 U/L Total Protein 7.4 6.4-8.2 GM/DL Albumin 3.4 3.2-4.5 GM/DL My Orders Orders - SARAH KYLE Cbc With Automated Diff (02/20/23 13:00) Comprehensive Metabolic Panel (02/20/23 13:00) Magnesium (02/20/23 13:00) Ekg Tracing (02/20/23 13:00) Magnesium 1 Gm/100 Ml Ivpb (Magnesium Angelo (02/20/23 13:41) Ed Admission (Communication) (02/20/23 13:50) Vital Signs/I&O 02/20/23 12:55 Temp 37.1 Pulse 71 Resp 14 B/P (MAP) 144/80 (101) O2 Delivery Room Air Capillary Refill : Less Than 3 Seconds ECG Comment Atrial fibrillation, 70 bpm, QRS duration 85 MS, QTc 426 MS Departure Communication (PCP) Reviewed previous ER visits, H&P, lab testing. History of hypomagnesia and hypocalcemia. Currently on 600 mg calcium 3 times daily, started increasing magnesium 400 mg twice daily on February 13. She is currently asymptomatic. Was sent to ED for abnormal low magnesium and calcium. She reports history of diarrhea but no diarrhea at this time. She is currently asymptomatic. Denies headache, visual changes, chest pain, shortness of breath, muscle cramping, seizures. She is alert and orient x4. CBC grossly unremarkable. CMP showed magnesium 0.7 corrected calcium 8.0 with normal kidney function and sodium and potassium. Patient was started on 2 g IV magnesium. Patient was discussed with hospitalist Dr. Huang for short stay with IV supplementation of magnesium. He agreed to accept. EKG atrial fibrillation chronic Impression Primary Impression: Hypomagnesemia Additional Impression: Hypocalcemia Disposition: ADMITTED INPATIENT Condition: Stable Admissions Decision to Admit Reason: Admit from ER (General) Decision to Admit/Date: Feb 20, 2023 Time/Decision to Admit Time: 14:00 Departure-Patient Inst. Referrals: SACHIN MONTGOMERY MD (PCP/Family) Primary Care Physician SARAH KYLE Feb 20, 2023 13:06
[2023-02-20 13:21] LABS: BASOPHILS % (AUTO) 1 % (0-10); EOSINOPHILS # (AUTO) 0.3 10^3/uL (0.0-0.3); EOSINOPHILS % (AUTO) 5 % (0-10); HEMATOCRIT 37 % (35-52); LYMPHOCYTES # (AUTO) 1.7 10^3/uL (1.0-4.0); LYMPHOCYTES % (AUTO) 28 % (12-44); MEAN CORPUSCULAR HEMOGLOBIN 28 pg (25-34); MEAN CORPUSCULAR HGB CONC 30 g/dL (32-36); MEAN CORPUSCULAR VOLUME 93 fL (80-99); MEAN PLATELET VOLUME 11.4 fL (9.0-12.2); MONOCYTES # (AUTO) 0.4 10^3/uL (0.0-1.0); MONOCYTES % (AUTO) 7 % (0-12); NEUTROPHILS # (AUTO) 3.6 10^3/uL (1.8-7.8); NEUTROPHILS % (AUTO) 59 % (42-75); PLATELET COUNT 179 10^3/uL (130-400); WHITE BLOOD COUNT 6.1 10^3/uL (4.3-11.0)
[2023-02-20 13:28] LABS: ALBUMIN 3.4 GM/DL (3.2-4.5); POTASSIUM 4.7 MMOL/L (3.6-5.0)
[2023-02-20 13:30] LABS: CALCIUM 7.5 MG/DL (8.5-10.1)
[2023-02-20 13:31] LABS: TOTAL PROTEIN 7.4 GM/DL (6.4-8.2)
[2023-02-20 13:33] LABS: BILIRUBIN,TOTAL 0.4 MG/DL (0.1-1.0)
[2023-02-20 13:34] LABS: CREATININE SERUM 0.94 MG/DL (0.60-1.30)
[2023-02-20 13:41] LABS: MAGNESIUM 0.7 MG/DL (1.6-2.4)
[2023-02-20] MEDS ORDERED: MAGNESIUM 1 GM/100 ML IVPB 100 ML IV STA (13:41)
[2023-02-20] MEDS ORDERED: ONDANSETRON 4 MG (ZOFRAN) ORAL DISSOLVE TAB PO PRN (14:45)
[2023-02-20] MEDS ORDERED: MILK OF MAGNESIA 400 MG/5 ML 30 ML UDC PO PRN (14:45)
[2023-02-20] MEDS ORDERED: NS IV 500 ML 500 ML IV PRN (14:45)
[2023-02-20] MEDS ORDERED: ACETAMINOPHEN 325 MG TABLET PO PRN (14:45)
[2023-02-20] MEDS ORDERED: ONDANSETRON 4 MG/2 ML (SDV) Z0FRAN IV PRN (14:45)
[2023-02-20] MEDS ORDERED: polyethylene glycoL POWDER 17 GM (MIRALAX) PACK PO PRN (14:45)
[2023-02-20] MEDS ORDERED: LACTULOSE SYRUP 10GM/15ML 30ML UDC PO PRN (14:45)
[2023-02-20] MEDS ORDERED: BISACODYL 10 MG SUPPOSITORY PR PRN (14:45)
[2023-02-20] MEDS ORDERED: ANTACID SUSP 30 ML UDC (MYLANTA) PO PRN (14:45)
[2023-02-20] MEDS ORDERED: CALCIUM CARBONATE 500 MG CHEW TABLET PO PRN (14:45)
[2023-02-20] MEDS ORDERED: MELATONIN 3 MG TABLET PO PRN (14:45)
[2023-02-20] MEDS ORDERED: CALCIUM GLUCONATE 1GM IVPB 100 ML IV NR (15:00)
[2023-02-20] MEDS: MAGNESIUM 1 GM/100 ML IVPB 100 ML IV SCH ×6 (15:16→23:20)
[2023-02-20] MEDS ORDERED: MAGN400T39 PO (15:59)
[2023-02-20] MEDS ORDERED: LOPE2CAP PO (15:59)
[2023-02-20] MEDS ORDERED: CALC10009 PO (15:59)
[2023-02-20] MEDS ORDERED: CHOL4POW4 PO (15:59)
[2023-02-20] MEDS ORDERED: INSU100I88 SQ ×2 (15:59)
[2023-02-20] MEDS ORDERED: PSYL660P17 PO (15:59)
[2023-02-20] MEDS ORDERED: CALC1CAP36 PO (15:59)
[2023-02-20] MEDS ORDERED: ERGO1250 PO (15:59)
[2023-02-20] MEDS ORDERED: CHOL500050 PO (15:59)
[2023-02-20 16:05] VITALS: BP 150/73
[2023-02-20] MEDS ORDERED: PRAMIPEXOLE 0.125 MG (MIRAPEX) TABLET PO SCH (17:00)
[2023-02-20] MEDS ORDERED: hydrOXYzine 25 MG CAPSULE PO PRN (17:15)
[2023-02-20] MEDS: HYDROcodone/ACETAMINOPHEN 10/325 TABLET PO PRN (17:50)
[2023-02-20 20:11] VITALS: BP 155/76
[2023-02-20] MEDS: GABAPENTIN 300 MG CAPSULE PO SCH (20:57)
[2023-02-20] MEDS: CALCIUM CARBONATE 600 MG +VITAMIN D TABLET PO SCH (20:58)
[2023-02-20] MEDS: PSYLLIUM PO SCH (20:59)
[2023-02-20] MEDS: SINEMET 25/100 (CARBIDOPA/LEVODOPA) TAB PO SCH (20:59)
[2023-02-20] MEDS: APIXABAN 5 MG TABLET PO SCH (20:59)
[2023-02-20] MEDS: DOCUSATE SODIUM 100 MG CAPSULE PO SCH (21:00)
[2023-02-20] MEDS: SENNOSIDES 8.6 MG (SENOKOT) TAB PO SCH (21:01)
[2023-02-20] MEDS: inSUlin DETERMIR 1 UNIT/0.01 ML (CHARGE PER UNIT) SQ SCH (21:01)
[2023-02-20] MEDS: inSUlin ASPART 1 UNIT/0.01 ML (PER UNIT) SC SCH (21:01)
[2023-02-21 00:11] VITALS: BP 180/78
[2023-02-21] MEDS: HYDROcodone/ACETAMINOPHEN 10/325 TABLET PO PRN (03:32)
[2023-02-21 03:44] VITALS: BP 142/72
[2023-02-21 05:41] LABS: CALCIUM 7.6 MG/DL (8.5-10.1); CREATININE SERUM 0.83 MG/DL (0.60-1.30); MAGNESIUM 2.2 MG/DL (1.6-2.4); POTASSIUM 4.5 MMOL/L (3.6-5.0)
[2023-02-21] MEDS ORDERED: MAGNESIUM 1 GM/100 ML IVPB 100 ML IV SCH (06:00)
[2023-02-21] MEDS ORDERED: POTASSIUM CHLORIDE 20 MEQ TABLET PO SCH (06:00)
[2023-02-21] MEDS ORDERED: POTASSIUM CL 10MEQ/50ML IVPB 50 ML IV SCH (06:00)
[2023-02-21] MEDS ORDERED: POTASSIUM BICARB 20 MEQ (EFFER-K) TABLET PO SCH (06:00)
[2023-02-21] MEDS: inSUlin ASPART 1 UNIT/0.01 ML (PER UNIT) SC SCH ×2 (06:29→11:39)
[2023-02-21 07:43] VITALS: BP 148/71
[2023-02-21] MEDS: APIXABAN 5 MG TABLET PO SCH (08:12)
[2023-02-21] MEDS: GABAPENTIN 300 MG CAPSULE PO SCH (08:13)
[2023-02-21] MEDS: inSUlin DETERMIR 1 UNIT/0.01 ML (CHARGE PER UNIT) SQ SCH (08:13)
[2023-02-21] MEDS: SINEMET 25/100 (CARBIDOPA/LEVODOPA) TAB PO SCH (08:13)
[2023-02-21] MEDS: CALCIUM CARBONATE 600 MG +VITAMIN D TABLET PO SCH (08:13)
[2023-02-21] MEDS: PSYLLIUM PO SCH (08:13)
[2023-02-21] MEDS: DOCUSATE SODIUM 100 MG CAPSULE PO SCH (08:18)
[2023-02-21] MEDS: SENNOSIDES 8.6 MG (SENOKOT) TAB PO SCH (08:18)
[2023-02-21] MEDS ORDERED: LEVOTHYROXINE 75 MCG (LEVOTHROID) TABLET PO SCH (09:00)
[2023-02-21] MEDS ORDERED: VENlafaxine 37.5 MG (EFFEXOR) TAB PO SCH (09:00)
[2023-02-21] MEDS ORDERED: amLODIPine 10 MG TABLET PO SCH (09:00)
[2023-02-21] MEDS ORDERED: TOLTERODINE LA 2 MG (DETROL LA) CAP PO SCH (09:00)
[2023-02-21] MEDS ORDERED: MAGNESIUM OXIDE (MAG-OX)400 MG TAB PO SCH (09:00)
[2023-02-21] MEDS ORDERED: PANTOPRAZOLE 20 MG TABLET (PROTONIX) PO SCH (09:00)
[2023-02-21] MEDS ORDERED: VITAMIN D3 125 MCG (5,000 UNITS) TABLET PO SCH (09:00)
[2023-02-21] MEDS ORDERED: FUROSEMIDE 20 MG TABLET PO SCH (09:00)
[2023-02-21] MEDS ORDERED: OMEPRAZOLE 20 MG (PriLOSEC) CAP NON-FORMULARY PO SCH (09:00)
[2023-02-21] MEDS ORDERED: MAGN400T39 PO (11:03)
[2023-02-21 11:16] VITALS: BP 163/59
[2023-02-21] MEDS ORDERED: GABAPENTIN 400 MG CAPSULE PO SCH (12:00)
[2023-02-21] MEDS ORDERED: CHOLESTYRAMINE LITE 4 GM PACKET PO SCH (12:00)
[2023-02-21 13:08] VITALS: BP 163/59
--- NOTE | 2023-02-21 19:06 | Short Stay Summary-Hospitalist ---
History of Present Illness HPI/Chief Complaint Calista Fry is an 87 year old female who was admitted with hypomagnesemia. She was found to have abnormal labs on routine testing. She was asymptomatic. She denies chest pain and palpitations. She denies confusion, lightheadedness, and dizziness. She feels like her normal self. She has no complaints or concerns. Source: patient Exam Limitations: no limitations Date Seen 02/21/23 Time Seen by a Provider: 10:20 Attending Physician Sachin Larios MD PCP Admitting Physician: Yenny Dimas MD Attending Physician: Yenny Dimas MD Referring Physician Date of Admission Feb 20, 2023 at 14:14 Home Medications & Allergies Home Medications Reviewed patient Home Medication Reconciliation performed by pharmacy medication reconciliations respiratory therapy technician and/or nursing. Patients Allergies have been reviewed. Allergies Allergies Coded Allergies No Known Drug Allergies (Fuwpmwud05/17/19) Past Mfydvmh-[id number]-Hecqoa Hx Patient Social History Tobacco Use?: No Smoking Status: Never a Smoker Smokeless Tobacco Frequency: Never a User Use of E-Cig and/or Vaping dev: No Substance use?: No Alcohol Use?: No Pt feels they are or have been: No Immunizations Up To Date Date of Influenza Vaccine: Apr 20, 2011 First/Initial COVID19 Vaccinat: RECEIVED, UNK WHEN Second COVID19 Vaccination Wally: RECEIVED, UNK WHEN Tetanus Booster (TDap): Unknown Hepatitis A: No Hepatitis B: No PED Vaccines UTD: No Date of Pneumonia Vaccine: Aug 21, 2009 Current Status status: No status: No Advance Directives: Yes Communicates: Verbally Primary Language: [place] Preferred Spoken Language: [place] Is interpretation needed?: No Sensory deficits: Vision impairment, Hearing impairment Past Medical History Surgeries: Abdominal, Appendectomy, Gallbladder, Hysterectomy, Joint Replacement, Orthopedic, Tonsillectomy Atrial Fibrillation, Chronic Edema/Swelling, High Cholesterol, Hypertension Neuropathy Sexually Transmitted Disease: No HIV/AIDS: No Gastroesophageal Reflux, Hiatal Hernia, Irritable Bowel Degenerate Disk Disease, Arthritis, Chronic Back Pain Diabetes, Insulin dep, Hypothyroidsim Cataract Loss of Vision: Denies Hearing Impairment: Denies Anxiety, Depression Pruritis Blood Disorders: No Family Medical History Cancer 03 MOTHER (STOMACH COLON ESOPHAGEAL) Cancer of colon 03 MOTHER 09 SISTER Family history: Cardiovascular disease 09 SISTER (HAS PACEMAKER) Family history: Diabetes mellitus 03 FATHER Myocardial infarction 03 FATHER No Family History of: Abdominal aortic aneurysm [place]'s disease Alcoholism Aphasia Cataract Chest pain Congenital heart disease Congestive heart failure Cystic fibrosis Dementia Dysphagia Family history: Allergy Family history: Alzheimer's disease Family history: Arthritis Family history: Asthma Family history: Coronary thrombosis Family history: Gastrointestinal disease Family history: Glaucoma Family history: Hypertension Family history: Osteoporosis Family history: Thyroid disorder Headache Hearing loss Heart disease Hereditary disease History of - anemia History of - respiratory disease History of drug abuse Human immunodeficiency virus (HIV) seropositivity Hypercholesterolemia Infertile Kidney disease Malignant neoplasm of lung Parkinson's disease Prostate cancer Psychotic disorder Seizure disorder Stroke Tuberculosis Visual impairment Hypertension, Other Conditions/Hx Review of Systems Constitutional: no symptoms reported Respiratory: no symptoms reported Cardiovascular: no symptoms reported Gastrointestinal: no symptoms reported Physical Exam Physical Exam Vital Signs Vital Signs - First Documented 02/20/23 02/20/23 12:55 16:05 Temp 37.1 Pulse 71 Resp 14 B/P (MAP) 144/80 (101) Pulse Ox 97 O2 Delivery Room Air Capillary Refill : Less Than 3 Seconds Height, Weight, BMI Height: 5'2.00" Weight: 224lbs. 0.9oz. [id number]; 35.31 BMI Method:Stated General Appearance: No Apparent Distress, Obese Eyes: Bilateral Eye Normal Inspection, Bilateral Eye PERRL, Bilateral Eye EOMI Neck: Normal Inspection, Supple Respiratory: Lungs Clear, Normal Breath Sounds, No Respiratory Distress Cardiovascular: Regular Rate, Rhythm, No Murmur Gastrointestinal: Normal Bowel Sounds, Non Tender, Soft Extremity: Normal Inspection, Non Tender Neurologic/Psychiatric: Alert, No Motor/Sensory Deficits, Normal Mood/Affect Skin: Other (Swelling bilateral lower extremities with stasis dermatitis) Results Results/Procedures Labs Laboratory Tests 02/20/23 13:07 02/21/23 05:13 Patient resulted labs reviewed. Short Stay Diagnosis Discharge Diagnosis-Short Stay Admission Diagnosis Hypomagnesemia Final Discharge Diagnosis Hypomagnesemia Conclusion Plan Hypomagnesemia Hypocalcemia Replaced and improved Increase magnesium supplement May need to increase Imodium if diarrhea worsens Follow up with Dr. Larios Diagnosis/Problems Diagnosis/Problems (1) Hypomagnesemia Status: Acute (2) Hypocalcemia Status: Acute Clinical Quality Measures AMI/AHF: ASA po Prior to arrival: No Copy Copies To 1: SACHIN LARIOS MD, JARIN M MD Feb 21, 2023 19:06
== END 2023-02-21 11:06 ==
LOC: EDUNIT# 12:49 → ER 12:51 → 4TH 14:14 → UNDOADMOB 14:14 → 4TH 14:24 → UNDODISOB 02-21 11:06
PROVIDERS: ADMIT Internal Medicine; ATTEND Internal Medicine
DX: E83.42 Hypomagnesemia (principal); E83.51 Hypocalcemia; I11.0 Hypertensive heart disease with heart failure; I50.9 Heart failure, unspecified; E11.9 Type 2 diabetes mellitus without complications; Z86.73 Personal history of transient ischemic attack (TIA), and cerebral infarction without residual deficits; Z79.899 Other long term (current) drug therapy; Z79.01 Long term (current) use of anticoagulants; Z79.891 Long term (current) use of opiate analgesic; Z79.4 Long term (current) use of insulin
CPT/HCPCS: 80048; 80053; 83735 ×2; 85025; 93005; 96374; 96375; 96376; 99284; G0378; 36415

== ENCOUNTER 2023-05-25 10:02 | Observation (INO) | payer MEDICARE, BC ==
[~2023-05-25] VITALS: Ht 152 cm; Wt 102.0 kg
[~2023-05-25 10:02] MED LIST changes: +CALC10009 PO; +CALC1CAP36 PO; +CHOL4POW4 PO; +CHOL500050 PO; -DICL100G13 TOP; +DICL100G60 TOP; -GABA-490 PO; +GABA-491 PO; +INSU100I88 SQ; +PSYL660P17 PO
[2023-05-25 10:57] LABS: BACTERIA,URINE MODERATE /HPF; BILIRUBIN,URINE NEGATIVE (NEGATIVE); CLARITY,URINE CLEAR; COLOR,URINE YELLOW; GLUCOSE, URINE (UA) NEGATIVE (NEGATIVE); KETONES,URINE NEGATIVE (NEGATIVE); LEUKOCYTE ESTERASE ,URINE TRACE (NEGATIVE); NITRITE,URINE NEGATIVE (NEGATIVE); PH,URINE 5.5 (5-9); PROTEIN,URINE 3+ (NEGATIVE)
--- NOTE | 2023-05-25 10:58 | ED General ---
General Chief Complaint: Abdominal/GI Problems Stated Complaint: CONSTIPATION Nursing Triage Note: PT STATES CONSTIPATION FOR 3-4 DAYS Source of Information: Patient Exam Limitations: No Limitations History of Present Illness Date Seen by Provider: May 25, 2023 Time Seen by Provider: 10:15 Initial Comments This pleasant 87-year-old woman presents to the emergency room with complaints of at least 4 days of constipation. She has had some associated upper abdominal discomfort with eating and some nausea. She describes some rectal discomfort with a sensation of a "ball" in the rectal area. This reportedly has been ongoing for several weeks or months. She was admitted to the hospital in February with hypomagnesemia and had diarrhea at that time. She reports passing no significant stool and no gas in the past 4 days. She denies any history of bowel obstructions. She had a smear of soft stool smaller than a quarter just prior to arrival. She also describes some difficulty urinating. She can only urinate small quantities over the past few days. Dr. Larios is her primary care provider. Dr. Faith is her sandwich wrapper. She is a resident at [place]. She is accompanied by her daughter today. Her preferred pharmacy is [email or web address]. She has nontender abdominal distention today. Postvoid bladder scan volume was 186. Allergies and Home Medications Allergies Coded Allergies: No Known Drug Allergies (Verified , 05/06/19) Patient Home Medication List Home Medication List Reviewed: Yes Acetaminophen (Tylenol Extra Strength) 500 Mg Tablet, 500 MG PO QID, (Reported) Entered as Reported by: DIANA RASHID on 10/30/22 0932 Amlodipine Besylate (Amlodipine Besylate) 10 Mg Tablet, 10 MG PO DAILY, (Reported) Entered as Reported by: ABBY VAZQUEZ on 11/16/15 1717 Apixaban (Eliquis) 5 Mg Tablet, 5 MG PO BID, (Reported) Entered as Reported by: KEITH ROBLEDO on 03/02/21 1454 Atorvastatin Calcium (Atorvastatin Calcium) 80 Mg Tablet, 80 MG PO HS, (Reported) Entered as Reported by: KEITH ROBLEDO on 03/02/21 1454 Calcium Carbonate (Tums Ultra) 400 Mg Calcium (1000 Mg) Tab.chew, 800-1,200 MG PO BID PRN for HEARTBURN/INDIGESTION, (Reported) Entered as Reported by: DIANA RASHID on 02/20/23 155 Calcium Carbonate/Vitamin D3 (Calcium 600 mg-D3 10 Mcg Sfgl) 600 Mg Calcium-10 Mcg (400 Unit) Capsule, 1 EACH PO TID, (Reported) Entered as Reported by: DIANA RASIHD on 02/20/23 155 Carbidopa/Levodopa (Carbidopa-Levodopa 25-100 Tab) 25 Mg-100 Mg Tablet, 1 EA PO BID, (Reported) Entered as Reported by: DIANA RASHID on 01/24/22 115 Cholecalciferol (Vitamin D3) (Vitamin D3) 125 Mcg (5000 Unit) Capsule, 125 MCG PO DAILY, (Reported) Entered as Reported by: DIANA RASHID on 02/20/231558 Cholestyramine (with Sugar) (Cholestyramine Packet) 4 Gram Powd.pack, 1 PACKET PO 1200, (Reported) Entered as Reported by: DIANA RASHID on 02/20/23 155 Diclofenac Sodium (Diclofenac Sodium) 1 % Gel..gram., 2 GM TOP UD PRN for PAIN-BREAKTHROUGH, (Reported) Entered as Reported by: DIANA RASHID on 10/30/22 09 Ergocalciferol (Vitamin D2) (Vitamin D2) 1,250 Mcg (37347 Unit) Capsule, 1,250 MCG PO WED, (Reported) Entered as Reported by: DIANA RASHID on 02/20/231558 Furosemide (Furosemide) 20 Mg Tablet, 20 MG PO Q48H, (Reported) Entered as Reported by: DIANA RASHID on 10/30/22 09 Gabapentin (Neurontin) 300 Mg Capsule, 300 MG PO BID, (Reported) Entered as Reported by: DIANA RASHID on 01/24/22 115 Gabapentin (Gabapentin) 400 Mg Capsule, 400 MG PO 1200, (Reported) Entered as Reported by: DIANA RASHID on 01/24/22 115 Guaifenesin (Mucinex) 600 Mg Tab.er.12h, 600 MG PO Q6H PRN for ALLERGIES, (Reported) Entered as Reported by: DIANA RASHID on 10/30/22 0932 Hydrocodone/Acetaminophen (Hydrocodone-Acetamin 10-325 mg) 10 Mg-325 Mg Tablet, 1 EA PO Q8H PRN for PAIN-MODERATE (5-7), (Reported) Entered as Reported by: DIANA RASHID on 10/30/22 09 Hydrocortisone (Anusol-Hc) 2.5 % Cream..g., 1 APPLIC RC TID PRN for ITCHING, (Reported) Entered as Reported by: DIANA RASHID on 01/24/22 1151 Hydroxyzine HCl (Hydroxyzine HCl) 25 Mg Tablet, 25 MG PO Q8H PRN for ANXIETY, (Reported) Entered as Reported by: KEITH ROBLEDO on 03/02/21 1454 Insulin Aspart (Novolog Flexpen) 100 Unit/Ml (3 Ml) Solution, UNITS SQ ACHS, (Reported) Entered as Reported by: DIANA RASHID on 10/30/22931 Insulin Detemir (Levemir Flexpen) 100 Unit/Ml (3 Ml) Insuln.pen, 10 UNITS SQ DAILY, (Reported) Entered as Reported by: DIANA RASHID on 02/20/23 155 Insulin Detemir (Levemir Flexpen) 100 Unit/Ml (3 Ml) Insuln.pen, 22 UNIT SQ HS, (Reported) Entered as Reported by: DIANA RASHID on 02/20/23 155 Levothyroxine Sodium (Synthroid) 75 Mcg Tablet, 75 MCG PO DAILY, (Reported) Entered as Reported by: KEITH ROBLEDO on 03/02/21 145 Loperamide HCl (Loperamide) 2 Mg Capsule, 2 MG PO Q48H, (Reported) Entered as Reported by: DIANA RASHID on 02/20/23 155 Magnesium Oxide (Magnesium) 400 Mg Magnesium Tablet, 400 MG PO BID WITH MEALS Prescribed by: CHOLO HUANG on 02/21/23 1103 Omeprazole (Omeprazole) 20 Mg Capsule.dr, 20 MG PO DAILY, (Reported) Entered as Reported by: DIANA RASHID on 10/30/22 09 Pediatric Multivit No.203/Iron (Flintstones with Iron Tab Chew) 18 Mg Iron Tab.chew, 18 MG PO DAILY, (Reported) Entered as Reported by: DIANA RASHID on 10/30/22 09 Potassium Chloride (Potassium Chloride) 20 Meq Tablet.er, 20 MEQ PO Q48H, (Reported) Entered as Reported by: DIANA RASHID on 10/30/22 09 Pramipexole Di-HCl (Pramipexole Dihydrochloride) 0.125 Mg Tablet, 0.125 MG PO 1700, (Reported) Entered as Reported by: DIANA RASHID on 01/24/22 1151 Psyllium Husk (Metamucil) 3.4 Gram/5.4 Gram Powder, 7 GM PO TID, (Reported) Entered as Reported by: DIANA RASHID on 02/20/23 1559 Tolterodine Tartrate (Tolterodine Tartrate ER) 4 Mg Cap.er.24h, 4 MG PO DAILY, (Reported) Entered as Reported by: ABBY VAZQUEZ on 11/16/15 1717 Venlafaxine HCl (Venlafaxine HCl) 37.5 Mg Tab, 37.5 MG PO DAILY, (Reported) Entered as Reported by: DIANA RASHID on 01/24/22 1151 [Magic Mouth Wash] SUSP, 15 ML PO QID PRN for MOUTH PAIN, (Reported) Entered as Reported by: DIANA RASHID on 10/30/22 0935 Review of Systems Review of Systems Constitutional: no symptoms reported EENTM: no symptoms reported Respiratory: no symptoms reported Cardiovascular: no symptoms reported Gastrointestinal: see HPI Genitourinary: see HPI : No Musculoskeletal: no symptoms reported Skin: no symptoms reported Psychiatric/Neurological: No Symptoms Reported Hematologic/Lymphatic: No Symptoms Reported Immunological/Allergic: no symptoms reported Past Xmxeupn-Ihbeaf-Sqeudm Hx Patient Social History Tobacco Use?: No Substance use?: No Alcohol Use?: No Immunizations Up To Date Tetanus Booster (TDap): Unknown PED Vaccines UTD: No First/Initial COVID19 Vaccinat: RECEIVED, UNK WHEN Second COVID19 Vaccination Wally: RECEIVED, UNK WHEN Third COVID19 Vaccination Date: RECEIVED, UNK WHEN Past Medical History Surgery/Hospitalization HX: DM, HTN, R TOTAL KNEE, GB, HYST. 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 ) Neuropathy Reproductive Disorders: No Female Reproductive Disorders: Denies Sexually Transmitted Disease: No HIV/AIDS: No Gastrointestinal: Yes (GERD) Gastroesophageal Reflux, Hiatal Hernia, Irritable Bowel Musculoskeletal: Yes (ARTHRITIS) Degenerate Disk Disease, Arthritis, Chronic Back Pain Endocrine: Yes (MORBID OBESTIY) Diabetes, Insulin dep, Hypothyroidsim Cataract Loss of Vision: Denies Hearing Impairment: Denies Cancer: No Psychosocial: Yes Anxiety, Depression Integumentary: Yes (bullous pemphigoid) Pruritis Blood Disorders: No Family Medical History Cancer 03 MOTHER (STOMACH COLON ESOPHAGEAL) Cancer of colon 03 MOTHER 09 SISTER Family history: Cardiovascular disease 09 SISTER (HAS PACEMAKER) Family history: Diabetes mellitus 03 FATHER Myocardial infarction 03 FATHER No Family History of: Abdominal aortic aneurysm Bryan's disease Alcoholism Aphasia Cataract Chest pain Congenital heart disease Congestive heart failure Cystic fibrosis Dementia Dysphagia Family history: Allergy Family history: Alzheimer's disease Family history: Arthritis Family history: Asthma Family history: Coronary thrombosis Family history: Gastrointestinal disease Family history: Glaucoma Family history: Hypertension Family history: Osteoporosis Family history: Thyroid disorder Headache Hearing loss Heart disease Hereditary disease History of - anemia History of - respiratory disease History of drug abuse Human immunodeficiency virus (HIV) seropositivity Hypercholesterolemia Infertile Kidney disease Malignant neoplasm of lung Parkinson's disease Prostate cancer Psychotic disorder Seizure disorder Stroke Tuberculosis Visual impairment Hypertension, Other Conditions/Hx Physical Exam Vital Signs Vital Signs - First Documented 05/25/23 10:14 Temp 36.8 Pulse 76 Resp 22 Pulse Ox 94 O2 Delivery Room Air Capillary Refill : Less Than 3 Seconds Height, Weight, BMI Height: 5'2.00" Weight: 224lbs. 0.9oz. [id number]; 37.00 BMI Method:Stated General Appearance: No Apparent Distress, WD/WN HEENT: PERRL/EOMI, Normal ENT Inspection, Other (Oropharynx very dry) Neck: Normal Inspection; No JVD Respiratory: Lungs Clear, Normal Breath Sounds, No Accessory Muscle Use Cardiovascular: Regular Rate, Rhythm, No Murmur, Other (Marked lower extremity edema equal bilaterally) Gastrointestinal: Normal Bowel Sounds, Non Tender, Distended (Somewhat firm) Rectal: Normal Rectal Tone; No Mass, No Tenderness; Other (Firm stool bolus just inside the anus.) Extremity: Pedal Edema, Swelling Neurologic/Psychiatric: Alert, Oriented x3, No Motor/Sensory Deficits, Normal Mood/Affect Skin: Normal Color, Warm/Dry Progress/Results/Core Measures Suspected Sepsis SIRS Temperature: Pulse: 76 Respiratory Rate: 22 Laboratory Tests 05/25/23 10:45: White Blood Count 5.9 Blood Pressure / Mean: Laboratory Tests 05/25/23 10:45: Creatinine 1.06, Platelet Count 173, Total Bilirubin < 0.1L Results/Orders Lab Results Laboratory Tests Test 05/25/23 10:40 05/25/23 10:45 Range/Units Urine Color YELLOW Urine Clarity CLEAR Urine pH 5.5 5-9 Urine Specific [place] 1.025 H 1.016-1.022 Urine Protein 3+ H NEGATIVE Urine Glucose (UA) NEGATIVE NEGATIVE Urine Ketones NEGATIVE NEGATIVE Urine Nitrite NEGATIVE NEGATIVE Urine Bilirubin NEGATIVE NEGATIVE Urine Urobilinogen 0.2 < = 1.0 MG/DL Urine Leukocyte Esterase TRACE H NEGATIVE Urine RBC (Auto) 2+ H NEGATIVE Urine RBC 5-10 H /HPF Urine WBC 2-5 /HPF Urine Squamous Epithelial Cells 5-10 /HPF Urine Crystals NONE /LPF Urine Bacteria MODERATE H /HPF Urine Casts PRESENT /LPF Urine Hyaline Casts 2-5 H /LPF Urine Mucus SMALL H /LPF Urine Culture Indicated YES White Blood Count 5.9 4.3-11.0 10^3/uL Red Blood Count 3.53 L 3.80-5.11 10^6/uL Hemoglobin 10.0 L 11.5-16.0 g/dL Hematocrit 33 L 35-52 % Mean Corpuscular Volume 94 80-99 fL Mean Corpuscular Hemoglobin 28 25-34 pg Mean Corpuscular Hemoglobin Concent 30 L 32-36 g/dL Red Cell Distribution Width 15.5 H 10.0-14.5 % Platelet Count 173 130-400 10^3/uL Mean Platelet Volume 11.3 9.0-12.2 fL Immature Granulocyte % (Auto) 0 % Neutrophils (%) (Auto) 73 42-75 % Lymphocytes (%) (Auto) 16 12-44 % Monocytes (%) (Auto) 8 0-12 % Eosinophils (%) (Auto) 3 0-10 % Basophils (%) (Auto) 1 0-10 % Neutrophils # (Auto) 4.4 1.8-7.8 10^3/uL Lymphocytes # (Auto) 0.9 L 1.0-4.0 10^3/uL Monocytes # (Auto) 0.5 0.0-1.0 10^3/uL Eosinophils # (Auto) 0.2 0.0-0.3 10^3/uL Basophils # (Auto) 0.0 0.0-0.1 10^3/uL Immature Granulocyte # (Auto) 0.0 0.0-0.1 10^3/uL Sodium Level 131 L 135-145 MMOL/L Potassium Level 4.6 3.6-5.0 MMOL/L Chloride Level 102 98-107 MMOL/L Carbon Dioxide Level 18 L 21-32 MMOL/L Anion Gap 11 5-14 MMOL/L Blood Urea Nitrogen 23 H 7-18 MG/DL Creatinine 1.06 0.60-1.30 MG/DL Estimat Glomerular Filtration Rate 51 BUN/Creatinine Ratio 22 Glucose Level 163 H 70-105 MG/DL Calcium Level 8.8 8.5-10.1 MG/DL Corrected Calcium 9.1 8.5-10.1 MG/DL Magnesium Level 1.8 1.6-2.4 MG/DL Total Bilirubin < 0.1 L 0.1-1.0 MG/DL Aspartate Amino Transf (AST/SGOT) 30 5-34 U/L Alanine Aminotransferase (ALT/SGPT) 12 0-55 U/L Alkaline Phosphatase 128 40-136 U/L Total Protein 7.5 6.4-8.2 GM/DL Albumin 3.6 3.2-4.5 GM/DL Thyroid Stimulating Hormone (TSH) 5.77 H 0.35-4.94 UIU/ML Free Thyroxine 0.86 0.70-1.48 NG/DL My Orders Orders - JAMIN DESOUZA MD Cbc And Automated Diff (05/25/23 10:28) Comprehensive Metabolic Panel (05/25/23 10:28) Magnesium (05/25/23 10:28) Thyroid Stimulating Hormone (05/25/23 10:28) Ua Culture If Indicated (05/25/23 10:28) Ed Iv/Invasive Line Start (05/25/23 10:28) Bladder Scan (05/25/23 10:28) Acute Abd Series (05/25/23 10:28) Urine Culture (05/25/23 10:40) Free T4 (Free Thyroxine) (05/25/23 11:56) Ct Abdomen/Pelvis W (05/25/23 11:58) Ondansetron Injection (Ondansetron Inj (05/25/23 12:00) Ns Iv 500 Ml (Ns Iv 500 Ml) (05/25/23 12:00) Iohexol Injection (Omnipaque 350 Mg/Ml 1 (05/25/23 12:30) Ns (Ivpb) 100 Ml (Sodium Chloride 0.9% 1 (05/25/23 12:30) Diatrizoate Meglum/Sodium 37% (Gastrogra (05/25/23 12:30) Lidocaine 2% Viscous 15 Ml (Xylocaine Vi (05/25/23 14:45) Morphine Injection (Morphine Injection (05/25/23 15:30) Na Phos/Na Biphos Adult Enema (Na Phos/N (05/25/23 15:53) Ed Admission (Communication) (05/25/23 16:09) Medications Given in ED Current Medications Medications Dose Ordered Sig/Alonzo Route Start Time Stop Time Status Last Admin Dose Admin Diatrizoate Meglum/ Diatrizoate Sod 120 ml ONCE ONCE PO 05/25/23 12:30 05/25/23 12:31 DC 05/25/23 12:26 50 ML Iohexol 100 ml ONCE ONCE IV 05/25/23 12:30 05/25/23 12:31 DC 05/25/23 13:53 80 ML Lidocaine HCl 5 ml ONCE ONCE MM 05/25/23 14:45 05/25/23 14:46 DC 05/25/23 15:38 5 ML Morphine Sulfate 2 mg ONCE ONCE IVP 05/25/23 15:30 05/25/23 15:31 DC 05/25/23 15:37 2 MG Ondansetron HCl 4 mg ONCE ONCE IVP 05/25/23 12:00 05/25/23 12:01 DC 05/25/23 12:07 4 MG Sodium Biphosphate/ Sodium Phosphate 1 ea STK-MED ONCE .ROUTE 05/25/23 15:53 05/25/23 15:55 DC 05/25/23 16:00 1 EA Sodium Chloride 100 ml ONCE ONCE IV 05/25/23 12:30 05/25/23 12:31 DC 05/25/23 13:53 80 ML Sodium Chloride 500 ml @ 0 mls/hr Q0M ONCE IV 05/25/23 12:00 05/25/23 12:01 DC 05/25/23 12:07 1,000 MLS/HR Vital Signs/I&O 05/25/23 10:14 Temp 36.8 Pulse 76 Resp 22 B/P (MAP) Pulse Ox 94 O2 Delivery Room Air Capillary Refill : Less Than 3 Seconds Progress Note : Time: 12:15 Progress Note Patient was interviewed and examined. Daughter contributed to the interview as well. Labs were reviewed and interpreted in their entirety. CBC demonstrated anemia with hemoglobin of 10.0. Baseline is closer to 11. CBC was otherwise unremarkable. Chemistry was notable for mild hyponatremia with sodium of 131. CO2 was low at 18. BUN was slightly elevated at 23. Creatinine was 1.06. GFR was 51, which is a slight decrease in renal function from baseline on review of prior labs. Glucose was elevated at 163. Magnesium was normal at 1.8. TSH was slightly elevated at 5.77 and free T4 is pending. Urinalysis was notable for high specific gravity of 1.025 and 2-5 hyaline casts which would suggest the patient is dry. There were 5-10 RBC, 2-5 WBC, and moderate bacteria which could suggest urinary tract infection. Culture is pending. Digital rectal exam was performed. No masses were found and patient did not have significant pain. However, there was a large firm stool bolus just past the anus. Acute abdominal series x-rays were obtained and viewed by me. By my interpretation there was a very marked dilation of the proximal colon with solid stool. CT scan is being obtained with oral contrast to evaluate further. Patient may simply have a distal obstruction due to fecal impaction which may need to be removed with manual disimpaction. However, other pathology should be considered and evaluated with CT scan first. Post void bladder scan revealed residual volume of 186 mL. Diagnostic Imaging Diagonstic Imaging: Xray Plain Films/CT/US/NM/MRI: chest, abdomen, pelvis Comments NAME: VERÓNICA RICHARD J MED REC#: [id number] PT STATUS: REG ER : 1935 PHYSICIAN: JAMIN DESOUZA MD ADMIT DATE: 05/25/23/ER Draft Date of Exam:05/25/23 ACUTE ABD SERIES INDICATION: Constipation x3-4 days, nausea. TECHNIQUE: Single view chest with supine and upright radiograph of the abdomen. CORRELATION STUDY: Chest 02/11/2022 FINDINGS: Single view chest with suboptimal depth of inspiration. Given this, there does appear to be probable at least mild severity edema. No consolidating infiltrate. Loop recorder device is present. The colon is diffusely distended and filled with stool. There are additional likely fluid and gas distended small bowel and colon present. Findings are consistent with previous hernia repair with mesh. Some generalized absence of a stool at the level the rectum. IMPRESSION: 1. Likely mild severity edema. 2. Rather prominent diffusely distended colon with retained stool. Does suggest constipation. Distal colonic obstruction is not completely excluded. Dictated on workstation # [id number] Dict: 05/25/23 1106 Trans: 05/25/23 1133 [facility] [id number] Interpreted by: TIMOTHY HOPKINS DO Diagonstic Imaging: CT Plain Films/CT/US/NM/MRI: abdomen, pelvis Comments NAME: VERÓNICA RICHARD Pathagility REC#: [id number] PT STATUS: REG ER : 1935 PHYSICIAN: JAMIN DESOUZA MD ADMIT DATE: 05/25/23/ER Draft Date of Exam:05/25/23 CT ABDOMEN/PELVIS W PROCEDURE: CT abdomen and pelvis with contrast. TECHNIQUE: Multiple contiguous axial images were obtained through the abdomen and pelvis after administration of intravenous contrast. Auto Exposure Controls were utilized during the CT exam to meet ALARA standards for radiation dose reduction. All CT scans use one or more of the following dose optimizing techniques: automated exposure control, MA and/or KvP adjustment based on patient size and exam type or iterative reconstruction. INDICATION: 87-year-old female, constipation for 3 to 4 days. CORRELATION STUDY: CT abdomen pelvis, 04/09/2018. Acute abdominal series (12/07/2022. FINDINGS: LOWER THORAX: Heart size enlarged. Lung bases demonstrate minimal subsegmental atelectasis. No significant infiltrate. High density contrast within the low esophagus could be reflective of reflux versus esophageal dysmotility LIVER: . GALLBLADDER: Cholecystectomy. No overt bile duct dilatation. SPLEEN: Unremarkable. PANCREAS: Unremarkable. ADRENAL GLANDS: 9 mm low-density nodule right adrenal gland favors adenoma. KIDNEYS: Normal enhancement of the kidneys. Right renal pelvis is slightly more prominent compared to prior but without definitive obstruction or calcification. There do appear to be some cervical calcification likely immediately adjacent to the right ureter likely vasculature. There is also very slight corkscrew appearance of the proximal right ureter. ABDOMINAL AORTA: Moderate wall calcification, nonaneurysmal. Prominent calcification at the origin of the celiac trunk superior mesenteric artery with at least mild narrowing. GASTROINTESTINAL TRACT: Stomach distended with contrast. There is some migration of oral contrast into the small bowel which is not overly distended. There is incomplete migration of contrast through the small bowel. There are surgical change of right hemicolectomy. The remainder of the colon is rather markedly distended with predominant fluid and some gas. Most pronounced distention of the proximal colon up to slightly greater than 10 cm. No romana volvulus or obstruction. There is stool filling of the colon to the rectum. Question slight Stercoral colitis at the rectum. URINARY BLADDER: Unremarkable. REPRODUCTIVE: Hysterectomy. OSSEOUS STRUCTURES: Compression deformities at T7 and T8. Age indeterminate and are new since prior but appear to be likely nonacute. IMPRESSION: 1. Rather significant stool filling of the entirety of the colon consistent with constipation. No asymmetric impaction or definitive colonic obstruction. 2. Very mildly prominent appearance about the right renal pelvis. Calcifications appear to be immediately adjacent to the ureter without definitive ureteric calcification. However, correlation with urinalysis and potentially short-term follow-up repeat imaging would be recommended. Dictated on workstation # [id number] Dict: 05/25/23 1408 Trans: 05/25/23 1439 [facility] [id number] Interpreted by: TIMOTHY HOPKINS DO Departure Communication (Admissions) Time/Spoke to Admitting Phy: 14:35 Dr. Rockwell Time/Spoke to Consulting Phy: 14:21 Dr. Thomas Impression Primary Impression: Constipation Qualified Codes: K59.00 - Constipation, unspecified Additional Impressions: Abdominal pain Qualified Codes: R10.84 - Generalized abdominal pain Urinary tract infection Qualified Codes: N39.0 - Urinary tract infection, site not specified Disposition: ADMITTED INPATIENT Condition: Stable Admissions Decision to Admit Reason: Admit from ER (General) Decision to Admit/Date: May 25, 2023 Time/Decision to Admit Time: 14:21 Departure-Patient Inst. Referrals: SACHIN LARIOS MD (PCP/Family) Primary Care Physician JAMIN DESOUZA MD May 25, 2023 10:58
[2023-05-25 11:01] LABS: BASOPHILS % (AUTO) 1 % (0-10); EOSINOPHILS # (AUTO) 0.2 10^3/uL (0.0-0.3); EOSINOPHILS % (AUTO) 3 % (0-10); HEMATOCRIT 33 % (35-52); LYMPHOCYTES # (AUTO) 0.9 10^3/uL (1.0-4.0); LYMPHOCYTES % (AUTO) 16 % (12-44); MEAN CORPUSCULAR HEMOGLOBIN 28 pg (25-34); MEAN CORPUSCULAR HGB CONC 30 g/dL (32-36); MEAN CORPUSCULAR VOLUME 94 fL (80-99); MEAN PLATELET VOLUME 11.3 fL (9.0-12.2); MONOCYTES # (AUTO) 0.5 10^3/uL (0.0-1.0); MONOCYTES % (AUTO) 8 % (0-12); NEUTROPHILS # (AUTO) 4.4 10^3/uL (1.8-7.8); NEUTROPHILS % (AUTO) 73 % (42-75); PLATELET COUNT 173 10^3/uL (130-400); WHITE BLOOD COUNT 5.9 10^3/uL (4.3-11.0)
[2023-05-25 11:11] LABS: ALBUMIN 3.6 GM/DL (3.2-4.5)
[2023-05-25 11:12] LABS: CHLORIDE 102 MMOL/L (98-107); POTASSIUM 4.6 MMOL/L (3.6-5.0); SODIUM 131 MMOL/L (135-145)
[2023-05-25 11:13] LABS: CALCIUM 8.8 MG/DL (8.5-10.1)
[2023-05-25 11:14] LABS: GLUCOSE 163 MG/DL (70-105); TOTAL PROTEIN 7.5 GM/DL (6.4-8.2)
[2023-05-25 11:15] LABS: CARBON DIOXIDE 18 MMOL/L (21-32)
[2023-05-25 11:16] LABS: BILIRUBIN,TOTAL < 0.1 MG/DL (0.1-1.0)
[2023-05-25 11:17] LABS: ALKALINE PHOSPHATASE 128 U/L (40-136)
[2023-05-25 11:18] LABS: CREATININE SERUM 1.06 MG/DL (0.60-1.30); GFR ESTIMATED 51
[2023-05-25 11:19] LABS: BUN/CREATININE RATIO 22
[2023-05-25 11:20] LABS: ALANINE AMINOTRANSFERASE 12 U/L (0-55); MAGNESIUM 1.8 MG/DL (1.6-2.4)
--- NOTE | 2023-05-25 11:34 | Diagnostic Imaging Report ---
INDICATION: Constipation x3-4 days, nausea. TECHNIQUE: Single view chest with supine and upright radiograph of the abdomen. CORRELATION STUDY: Chest 02/11/2022 FINDINGS: Single view chest with suboptimal depth of inspiration. Given this, there does appear to be probable at least mild severity edema. No consolidating infiltrate. Loop recorder device is present. The colon is diffusely distended and filled with stool. There are additional likely fluid and gas distended small bowel and colon present. Findings are consistent with previous hernia repair with mesh. Some generalized absence of a stool at the level the rectum. IMPRESSION: 1. Likely mild severity edema. 2. Rather prominent diffusely distended colon with retained stool. Does suggest constipation. Distal colonic obstruction is not completely excluded. Dictated by: Dictated on workstation # [id number]
[2023-05-25] MEDS ORDERED: ONDANSETRON INJECTION 4 MG/2 ML (SDV) IVP ONE (12:00)
[2023-05-25] MEDS ORDERED: NS IV 500 ML 500 ML IV ONE (12:00)
[2023-05-25] MEDS ORDERED: DIATRIZOATE MEGLUM/SODIUM 37% 120 ML (GASTROGRAFIN) PO ONE (12:30)
[2023-05-25] MEDS ORDERED: NS 100 ML (IVPB) BAG IV ONE (12:30)
[2023-05-25] MEDS ORDERED: IOHEXOL 350 MG/ML 100 ML (OMNIPAQUE 350) VIAL IV ONE (12:30)
--- NOTE | 2023-05-25 14:40 | Diagnostic Imaging Report ---
PROCEDURE: CT abdomen and pelvis with contrast. TECHNIQUE: Multiple contiguous axial images were obtained through the abdomen and pelvis after administration of intravenous contrast. Auto Exposure Controls were utilized during the CT exam to meet ALARA standards for radiation dose reduction. All CT scans use one or more of the following dose optimizing techniques: automated exposure control, MA and/or KvP adjustment based on patient size and exam type or iterative reconstruction. INDICATION: 87-year-old female, constipation for 3 to 4 days. CORRELATION STUDY: CT abdomen pelvis, 04/09/2018. Acute abdominal series (12/07/2022. FINDINGS: LOWER THORAX: Heart size enlarged. Lung bases demonstrate minimal subsegmental atelectasis. No significant infiltrate. High density contrast within the low esophagus could be reflective of reflux versus esophageal dysmotility LIVER: . GALLBLADDER: Cholecystectomy. No overt bile duct dilatation. SPLEEN: Unremarkable. PANCREAS: Unremarkable. ADRENAL GLANDS: 9 mm low-density nodule right adrenal gland favors adenoma. KIDNEYS: Normal enhancement of the kidneys. Right renal pelvis is slightly more prominent compared to prior but without definitive obstruction or calcification. There do appear to be some cervical calcification likely immediately adjacent to the right ureter likely vasculature. There is also very slight corkscrew appearance of the proximal right ureter. ABDOMINAL AORTA: Moderate wall calcification, nonaneurysmal. Prominent calcification at the origin of the celiac trunk superior mesenteric artery with at least mild narrowing. GASTROINTESTINAL TRACT: Stomach distended with contrast. There is some migration of oral contrast into the small bowel which is not overly distended. There is incomplete migration of contrast through the small bowel. There are surgical change of right hemicolectomy. The remainder of the colon is rather markedly distended with predominant fluid and some gas. Most pronounced distention of the proximal colon up to slightly greater than 10 cm. No romana volvulus or obstruction. There is stool filling of the colon to the rectum. Question slight Stercoral colitis at the rectum. URINARY BLADDER: Unremarkable. REPRODUCTIVE: Hysterectomy. OSSEOUS STRUCTURES: Compression deformities at T7 and T8. Age indeterminate and are new since prior but appear to be likely nonacute. IMPRESSION: 1. Rather significant stool filling of the entirety of the colon consistent with constipation. No asymmetric impaction or definitive colonic obstruction. 2. Very mildly prominent appearance about the right renal pelvis. Calcifications appear to be immediately adjacent to the ureter without definitive ureteric calcification. However, correlation with urinalysis and potentially short-term follow-up repeat imaging would be recommended. Dictated by: Dictated on workstation # [id number]
[2023-05-25] MEDS ORDERED: LIDOCAINE 2% VISCOUS 15 ML UDC MM ONE (14:45)
[2023-05-25] MEDS ORDERED: morphine INJ 4 MG/ML 1 ML (VIAL/SYRINGE) IVP ONE (15:30)
--- NOTE | 2023-05-25 15:32 | Consultation - Surgery ---
History of Present Illness History of Present Illness Patient Consulted On(jimmy/time) 05/25/23 15:27 Time Seen by Provider: 15:11 History of Present Illness Surgery asked to consult regarding constipation. HPI per ED: This pleasant 87-year-old woman presents to the emergency room with complaints of at least 4 days of constipation. She has had some associated upper abdominal discomfort with eating and some nausea. She describes some rectal discomfort with a sensation of a "ball" in the rectal area. This reportedly has been ongoing for several weeks or months. She was admitted to the hospital in February with hypomagnesemia and had diarrhea at that time. She reports passing no significant stool and no gas in the past 4 days. She denies any history of bowel obstructions. She had a smear of soft stool smaller than a quarter just prior to arrival. She also describes some difficulty urinating. She can only urinate small quantities over the past few days. Dr. Larios is her primary care provider. Dr. Faith is her benefits clerk. She is a resident at [facility]. She is accompanied by her daughter today. Her preferred pharmacy is [facility]. She has nontender abdominal distention today. Postvoid bladder scan volume was 186. When I saw pt in the ER she was lying in bed and appeared comfortable. Her daughter was in the room with her. She states that she has been trying prune juice and was taking some Miralax. This is a change from February when she was having diarrhea and put on meds to try and stop that. She states her stomach is very distended; "this is not normal for me". Allergies and Home Medications Allergies Coded Allergies: No Known Drug Allergies (Verified , 05/06/19) Patient Home Medication List Home Medication List Reviewed: Yes Acetaminophen (Tylenol Extra Strength) 500 Mg Tablet, 500 MG PO QID, (Reported) Entered as Reported by: DIANA RASHID on 10/30/22 0932 Amlodipine Besylate (Amlodipine Besylate) 10 Mg Tablet, 10 MG PO DAILY, (Reported) Entered as Reported by: ABBY VAZQUEZ on 11/16/15 1717 Apixaban (Eliquis) 5 Mg Tablet, 5 MG PO BID, (Reported) Entered as Reported by: KEITH ROBLEDO on 03/02/21 1454 Atorvastatin Calcium (Atorvastatin Calcium) 80 Mg Tablet, 80 MG PO HS, (Reported) Entered as Reported by: KEITH ROBLEDO on 03/02/21 1454 Calcium Carbonate (Tums Ultra) 400 Mg Calcium (1000 Mg) Tab.chew, 800-1,200 MG PO BID PRN for HEARTBURN/INDIGESTION, (Reported) Entered as Reported by: DIANA RASHID on 02/20/23 155 Calcium Carbonate/Vitamin D3 (Calcium 600 mg-D3 10 Mcg Sfgl) 600 Mg Calcium-10 Mcg (400 Unit) Capsule, 1 EACH PO TID, (Reported) Entered as Reported by: DIANA RASHID on 02/20/23 155 Carbidopa/Levodopa (Carbidopa-Levodopa 25-100 Tab) 25 Mg-100 Mg Tablet, 1 EA PO BID, (Reported) Entered as Reported by: DIANA RASHID on 01/24/22 115 Cholecalciferol (Vitamin D3) (Vitamin D3) 125 Mcg (5000 Unit) Capsule, 125 MCG PO DAILY, (Reported) Entered as Reported by: DIANA RASHID on 02/20/23 155 Cholestyramine (with Sugar) (Cholestyramine Packet) 4 Gram Powd.pack, 1 PACKET PO 1200, (Reported) Entered as Reported by: DIANA RASHID on 02/20/23 155 Diclofenac Sodium (Diclofenac Sodium) 1 % Gel..gram., 2 GM TOP UD PRN for PAIN- BREAKTHROUGH, (Reported) Entered as Reported by: DIANA RASHID on 10/30/22 0932 Ergocalciferol (Vitamin D2) (Vitamin D2) 1,250 Mcg (20161 Unit) Capsule, 1,250 MCG PO WED, (Reported) Entered as Reported by: DIANA RASHID on 02/20/23 155 Furosemide (Furosemide) 20 Mg Tablet, 20 MG PO Q48H, (Reported) Entered as Reported by: DIANA RASHID on 10/30/22 0932 Gabapentin (Neurontin) 300 Mg Capsule, 300 MG PO BID, (Reported) Entered as Reported by: DIANA RASHID on 01/24/22 1151 Gabapentin (Gabapentin) 400 Mg Capsule, 400 MG PO 1200, (Reported) Entered as Reported by: DIANA RASHID on 01/24/22 115 Guaifenesin (Mucinex) 600 Mg Tab.er.12h, 600 MG PO Q6H PRN for ALLERGIES, (Reported) Entered as Reported by: DIANA RASHID on 10/30/22 0932 Hydrocodone/Acetaminophen (Hydrocodone-Acetamin 10-325 mg) 10 Mg-325 Mg Tablet, 1 EA PO Q8H PRN for PAIN-MODERATE (5-7), (Reported) Entered as Reported by: DIANA RASHID on 10/30/22 0932 Hydrocortisone (Anusol-Hc) 2.5 % Cream..g., 1 APPLIC RC TID PRN for ITCHING, (Re ported) Entered as Reported by: DIANA RASHID on 01/24/22 1151 Hydroxyzine HCl (Hydroxyzine HCl) 25 Mg Tablet, 25 MG PO Q8H PRN for ANXIETY, (Reported) Entered as Reported by: KEITH ROBLEDO on 03/02/21 1454 Insulin Aspart (Novolog Flexpen) 100 Unit/Ml (3 Ml) Solution, UNITS SQ ACHS, (Reported) Entered as Reported by: DIANA RASHID on 10/30/22 0932 Insulin Detemir (Levemir Flexpen) 100 Unit/Ml (3 Ml) Insuln.pen, 10 UNITS SQ DAILY, (Reported) Entered as Reported by: DIANA RASHID on 02/20/23 1559 Insulin Detemir (Levemir Flexpen) 100 Unit/Ml (3 Ml) Insuln.pen, 22 UNIT SQ HS, (Reported) Entered as Reported by: DIANA RASHID on 02/20/23 1559 Levothyroxine Sodium (Synthroid) 75 Mcg Tablet, 75 MCG PO DAILY, (Reported) Entered as Reported by: KEITH ROBLEDO on 03/02/21 1454 Loperamide HCl (Loperamide) 2 Mg Capsule, 2 MG PO Q48H, (Reported) Entered as Reported by: DIANA RASHID on 02/20/23 155 Magnesium Oxide (Magnesium) 400 Mg Magnesium Tablet, 400 MG PO BID WITH MEALS Prescribed by: CHOLO HUANG on 02/21/23 1103 Omeprazole (Omeprazole) 20 Mg Capsule.dr, 20 MG PO DAILY, (Reported) Entered as Reported by: DIANA RASHID on 10/30/22 0940 Pediatric Multivit No.203/Iron (Flintstones with Iron Tab Chew) 18 Mg Iron Tab.chew, 18 MG PO DAILY, (Reported) Entered as Reported by: DIANA RASHID on 10/30/22 0932 Potassium Chloride (Potassium Chloride) 20 Meq Tablet.er, 20 MEQ PO Q48H, (Reported) Entered as Reported by: DIANA RASHID on 10/30/22 0932 Pramipexole Di-HCl (Pramipexole Dihydrochloride) 0.125 Mg Tablet, 0.125 MG PO 1700, (Reported) Entered as Reported by: DIANA RASHID on 01/24/22 1151 Psyllium Husk (Metamucil) 3.4 Gram/5.4 Gram Powder, 7 GM PO TID, (Reported) Entered as Reported by: DIANA RASHID on 02/20/23 1559 Tolterodine Tartrate (Tolterodine Tartrate ER) 4 Mg Cap.er.24h, 4 MG PO DAILY, (Reported) Entered as Reported by: ABBY VAZQUEZ on 11/16/15 1717 Venlafaxine HCl (Venlafaxine HCl) 37.5 Mg Tab, 37.5 MG PO DAILY, (Reported) Entered as Reported by: DIANA RASHID on 01/24/22 1151 [Magic Mouth Wash] SUSP, 15 ML PO QID PRN for MOUTH PAIN, (Reported) Entered as Reported by: DIANA RASHID on 10/30/22 0935 Past Rdariam-Fyrwxp-Oqsphg Hx Patient Social History Smoking Status: Never a Smoker 2nd Hand Smoke Exposure: No ( smoked but quit many years ago) Recent Hopitalizations: Yes Alcohol Use?: No Immunizations Up To Date Tetanus Booster (TDap): Unknown PED Vaccines UTD: No Date of Pneumonia Vaccine: Aug 21, 2009 Date of Influenza Vaccine: Apr 20, 2011 Surgeries History of Surgeries: Yes (R KNEE REPLACEMENT, hernia w/mesh placement Dr Jones ) Surgeries: Abdominal (Hernia repair), Appendectomy, Gallbladder, Hysterectomy, Joint Replacement, Orthopedic, Tonsillectomy Respiratory History of Respiratory Disorde: No Cardiovascular History of Cardiac Disorders: Yes (INTERMITTENT ATRIAL FIBRILLATION ) Cardiac Disorders: Atrial Fibrillation (anticoagulated), Chronic Edema/Swelling, High Cholesterol, Hypertension Neurological History of Neurological Disord: Yes (? PARKINSON'S ? ) Neurological Disorders: Neuropathy Reproductive System Hx Reproductive Disorders: No Sexually Transmitted Disease: No HIV/AIDS: No Female Reproductive Disorders: Denies Genitourinary History of Genitourinary Disor: Yes Genitourinary Disorders: UTI-Chronic Gastrointestinal History of Gastrointestinal Di: Yes (GERD) Gastrointestinal Disorders: Gastroesophageal Reflux, Hiatal Hernia, Irritable Bowel Musculoskeletal History of Musculoskeletal Dis: Yes (ARTHRITIS) Musculoskeletal Disorders: Degenerate Disk Disease, Arthritis, Chronic Back Pain Endocrine History of Endocrine Disorders: Yes (MORBID OBESTIY) Endocrine Disorders: Diabetes, Insulin dep, Hypothyroidsim HEENT HEENT Disorders: Cataract Loss of Vision: Denies Hearing Impairment: Denies Cancer History of Cancer: No Psychosocial History of Psychiatric Problem: Yes Behavioral Health Disorders: Anxiety, Depression Integumentary History of Skin or Integumenta: Yes (bullous pemphigoid) Skin/Integumentary Disorders: Pruritis Blood Transfusions History of Blood Disorders: No Family Medical History Significant Family History: Heart Disease (sister - pacemaker, Father had VT), Cancer (Colon - mother and sister), Hypertension Family Medial History: Cancer 03 MOTHER (STOMACH COLON ESOPHAGEAL) Cancer of colon 03 MOTHER 09 SISTER Family history: Cardiovascular disease 09 SISTER (HAS PACEMAKER) Family history: Diabetes mellitus 03 FATHER Myocardial infarction 03 FATHER Review of Systems-General Constitutional: No fever; malaise, weakness EENTM: No blurred vision, No mouth swelling, No epistaxis Respiratory: No cough, No dyspnea on exertion, No hemoptysis, No phlegm Cardiovascular: No chest pain; palpitations Gastrointestinal: abdominal pain, loss of appetite, nausea; No vomiting Genitourinary: dysuria, frequency; No hematuria; incontinence Musculoskeletal: joint pain, joint swelling, muscle stiffness Skin: No change in color, No change in hair/nails; other (chronic wounds on legs) Psychiatric/Neurological: Anxiety, Depressed; Denies Seizure Physical Exam-General Problems Physical Exam Vital Signs Vital Signs - First Documented 05/25/23 10:14 Temp 36.8 Pulse 76 Resp 22 Pulse Ox 94 O2 Delivery Room Air Capillary Refill : Less Than 3 Seconds General Appearance: WD/WN, mild distress Eyes: Bilateral Eye PERRL, Bilateral Eye EOMI HEENT: pharynx normal; No scleral icterus (R), No scleral icterus (L) Neck: non-tender, supple Respiratory: lungs clear, normal breath sounds, no respiratory distress, no accessory muscle use Cardiovascular: systolic murmur, irregularly irregular Gastrointestinal: no organomegaly, distended (firm); No rebound; tenderness (diffusely) Back: no CVA tenderness Extremities: non-tender, no pedal edema Neurologic/Psychiatric: alert, oriented x 3 Skin: normal color, warm/dry Lymphatic: no adenopathy (neck, axilla or groin) Data Review Labs Laboratory Tests 05/25/23 10:40: Urine Color YELLOW, Urine Clarity CLEAR, Urine pH 5.5, Urine Specific [place] 1.025H, Urine Protein 3+H, Urine Glucose (UA) NEGATIVE, Urine Ketones NEGATIVE, Urine Nitrite NEGATIVE, Urine Bilirubin NEGATIVE, Urine Urobilinogen 0.2, Urine Leukocyte Esterase TRACEH, Urine RBC (Auto) 2+H, Urine RBC 5-10H, Urine WBC 2-5, Urine Squamous Epithelial Cells 5-10, Urine Crystals NONE, Urine Bacteria MODERATEH, Urine Casts PRESENT, Urine Hyaline Casts 2-5H, Urine Mucus SMALLH, Urine Culture Indicated YES 05/25/23 10:45: White Blood Count 5.9, Red Blood Count 3.53L, Hemoglobin 10.0L, Hematocrit 33L, Mean Corpuscular Volume 94, Mean Corpuscular Hemoglobin 28, Mean Corpuscular Hemoglobin Concent 30L, Red Cell Distribution Width 15.5H, Platelet Count 173, Mean Platelet Volume 11.3, Immature Granulocyte % (Auto) 0, Neutrophils (%) (Auto) 73, Lymphocytes (%) (Auto) 16, Monocytes (%) (Auto) 8, Eosinophils (%) (Auto) 3, Basophils (%) (Auto) 1, Neutrophils # (Auto) 4.4, Lymphocytes # (Auto) 0.9L, Monocytes # (Auto) 0.5, Eosinophils # (Auto) 0.2, Basophils # (Auto) 0.0, Immature Granulocyte # (Auto) 0.0, Sodium Level 131L, Potassium Level 4.6, Chloride Level 102, Carbon Dioxide Level 18L, Anion Gap 11, Blood Urea Nitrogen 23H, Creatinine 1.06, Estimat Glomerular Filtration Rate 51, BUN/Creatinine R atio 22, Glucose Level 163H, Calcium Level 8.8, Corrected Calcium 9.1, Magnesium Level 1.8, Total Bilirubin < 0.1L, Aspartate Amino Transf (AST/SGOT) 30, Alanine Aminotransferase (ALT/SGPT) 12, Alkaline Phosphatase 128, Total Protein 7.5, Albumin 3.6, Thyroid Stimulating Hormone (TSH) 5.77H, Free Thyroxine 0.86 Radiology Date of Exam:05/25/23 CT ABDOMEN/PELVIS W PROCEDURE: CT abdomen and pelvis with contrast. TECHNIQUE: Multiple contiguous axial images were obtained through the abdomen and pelvis after administration of intravenous contrast. Auto Exposure Controls were utilized during the CT exam to meet ALARA standards for radiation dose reduction. All CT scans use one or more of the following dose optimizing techniques: automated exposure control, MA and/or KvP adjustment based on patient size and exam type or iterative reconstruction. INDICATION: 87-year-old female, constipation for 3 to 4 days. CORRELATION STUDY: CT abdomen pelvis, 04/09/2018. Acute abdominal series (12/07/2022. FINDINGS: LOWER THORAX: Heart size enlarged. Lung bases demonstrate minimal subsegmental atelectasis. No significant infiltrate. High density contrast within the low esophagus could be reflective of reflux versus esophageal dysmotility LIVER: . GALLBLADDER: Cholecystectomy. No overt bile duct dilatation. SPLEEN: Unremarkable. PANCREAS: Unremarkable. ADRENAL GLANDS: 9 mm low-density nodule right adrenal gland favors adenoma. KIDNEYS: Normal enhancement of the kidneys. Right renal pelvis is slightly more prominent compared to prior but without definitive obstruction or calcification. There do appear to be some cervical calcification likely immediately adjacent to the right ureter likely vasculature. There is also very slight corkscrew appearance of the proximal right ureter. ABDOMINAL AORTA: Moderate wall calcification, nonaneurysmal. Prominent calcification at the origin of the celiac trunk superior mesenteric artery with at least mild narrowing. GASTROINTESTINAL TRACT: Stomach distended with contrast. There is some migration of oral contrast into the small bowel which is not overly distended. There is incomplete migration of contrast through the small bowel. There are surgical change of right hemicolectomy. The remainder of the colon is rather markedly distended with predominant fluid and some gas. Most pronounced distention of the proximal colon up to slightly greater than 10 cm. No romana volvulus or obstruction. There is stool filling of the colon to the rectum. Question slight Stercoral colitis at the rectum. URINARY BLADDER: Unremarkable. REPRODUCTIVE: Hysterectomy. OSSEOUS STRUCTURES: Compression deformities at T7 and T8. Age indeterminate and are new since prior but appear to be likely nonacute. IMPRESSION: 1. Rather significant stool filling of the entirety of the colon consistent with constipation. No asymmetric impaction or definitive colonic obstruction. 2. Very mildly prominent appearance about the right renal pelvis. Calcifications appear to be immediately adjacent to the ureter without definitive ureteric calcification. However, correlation with urinalysis and potentially short-term follow-up repeat imaging would be recommended. Dictated on workstation # [id number] Dict: 05/25/23 1408 Trans: 05/25/23 1439 [facility] [id number] Interpreted by: TIMOTHY HOPKINS DO Assessment/Plan Assessment/Plan Assessment/Plan Severe Constipation with Dilation of Cecum HTN, DM, Afib ??UTI Plan is to start her on Miralax; basically the colon prep dose. Dr. Cormier is going to attempt a disimpaction of the rectal vault; stated he felt very hard stool when he did RADHA. I looked at the CT films myself and measured the diameter of the cecum to be appx 14cm. I also discussed this case with Dr. Cormier; as well as, the patient and her daughter. My main concern is that at appx 15cm of dilation the cecum can spontaneously perforate. Now, if this is a chronic condition it could probably dilate more than 15cm and still be ok; but, I went and looked at the old CT and it wasn't as bad as today's. I spoke with the pt and daughter about what the last option scenario would be.....which is surgery and colon resection, possible Sub-Total Colectomy. We will try to avoid this because of her age and the fact that she is on Apixiban. I would recommend holding Apixiban now, just in case we have to go to surgery. All questions answered to their satisfaction. Restart all HTN, DM and any other important home med. PASTOR YOU DO May 25, 2023 15:32
[2023-05-25] MEDS ORDERED: Sodium Phosphate/Sodium Biphosphate ADULT enema ONE (15:53)
[2023-05-25] MEDS ORDERED: ONDANSETRON INJECTION 4 MG/2 ML (SDV) IVP PRN (17:45)
[2023-05-25] MEDS ORDERED: ACETAMINOPHEN 500 MG TABLET PO PRN (17:45)
[2023-05-25] MEDS: PANTOPRAZOLE INJECTION 40 MG VIAL IV SCH (18:12)
[2023-05-25] MEDS: cefTRIAXone IV/IM 1,000 MG in NS (IVPB) 50 ML 50 ML IV SCH (18:13)
[2023-05-25 19:19] VITALS: BP 145/72
[2023-05-25] MEDS ORDERED: PEG 3350/ELECTROLYTE POWDER 4000 ML BTL PO NR (19:30)
[2023-05-25] MEDS ORDERED: morphine INJ 4 MG/ML 1 ML (VIAL/SYRINGE) ONE (19:40)
[2023-05-25] MEDS: morphine INJ 4 MG/ML 1 ML (VIAL/SYRINGE) IVP PRN (19:43)
[2023-05-25 23:58] VITALS: BP 159/77
[2023-05-26 04:03] VITALS: BP 141/83
[2023-05-26] MEDS: morphine INJ 4 MG/ML 1 ML (VIAL/SYRINGE) IVP PRN ×2 (05:26→20:28)
[2023-05-26 05:44] LABS: BASOPHILS % (AUTO) 1 % (0-10); EOSINOPHILS # (AUTO) 0.1 10^3/uL (0.0-0.3); EOSINOPHILS % (AUTO) 2 % (0-10); HEMATOCRIT 33 % (35-52); HEMOGLOBIN 9.9 g/dL (11.5-16.0); LYMPHOCYTES # (AUTO) 0.7 10^3/uL (1.0-4.0); LYMPHOCYTES % (AUTO) 14 % (12-44); MEAN CORPUSCULAR HEMOGLOBIN 28 pg (25-34); MEAN CORPUSCULAR HGB CONC 30 g/dL (32-36); MEAN CORPUSCULAR VOLUME 92 fL (80-99); MEAN PLATELET VOLUME 10.9 fL (9.0-12.2); MONOCYTES # (AUTO) 0.5 10^3/uL (0.0-1.0); MONOCYTES % (AUTO) 10 % (0-12); NEUTROPHILS # (AUTO) 3.8 10^3/uL (1.8-7.8); NEUTROPHILS % (AUTO) 73 % (42-75); PLATELET COUNT 163 10^3/uL (130-400); WHITE BLOOD COUNT 5.2 10^3/uL (4.3-11.0)
[2023-05-26 06:03] LABS: CALCIUM 8.7 MG/DL (8.5-10.1); CREATININE SERUM 1.17 MG/DL (0.60-1.30); POTASSIUM 4.8 MMOL/L (3.6-5.0)
[2023-05-26 07:46] VITALS: BP 145/65
[2023-05-26] MEDS: PANTOPRAZOLE INJECTION 40 MG VIAL IV SCH (08:14)
--- NOTE | 2023-05-26 09:10 | Diagnostic Imaging Report ---
Indication: Abdominal pain, distention. Abdominal film obtained with supine and upright views. Comparison made to the previous day. There is no evidence of free air. There is a large air-fluid level in the right colon with scattered air-fluid levels throughout the remainder of the colon. There is prominent stool in the colon. There are surgical clips in the right upper quadrant. Impression: Unchanged scattered fluid levels throughout the colon with marked distention of cecum. The appearance has not changed compared to yesterday, correlate with CT done yesterday. Dictated by: Dictated on workstation # [id number]
--- NOTE | 2023-05-26 10:37 | Progress Note - Surgery ---
ELI DURAN 05/26/23 1037: Subjective Date Seen by a Provider: May 26, 2023 Time Seen by a Provider: 07:36 Subjective/Events-last exam Calista Fry was examined this morning lying in her hospital bed. She is complaining of back pain that she rates 5/10. She is not having any abdominal pain and denies a bowel movement since admission. She is ambulating to the commode. Review of Systems General: No Chills, No Night Sweats HEENT: No Head Aches Pulmonary: No Dyspnea, No Cough Cardiovascular: No: Chest Pain, Palpitations Gastrointestinal: Abdominal Pain (rates a 0 currently, but was a 10 when she was transferred for x-ray), Constipation; No: Nausea, Vomiting Genitourinary: No Dysuria, No Frequency Musculoskeletal: back pain Objective Exam Vital Signs Date Time Temp Pulse Resp B/P (MAP) Pulse Ox O2 Delivery O2 Flow Rate FiO2 05/26/23 08:43 Room Air 05/26/23 07:46 37.1 67 20 145/65 (91) 92 Room Air 05/26/23 04:03 37.0 65 18 141/83 (102) 92 Room Air 05/25/23 23:58 36.4 74 20 159/77 (104) 93 Room Air 05/25/23 19:19 36.6 73 24 145/72 (96) 90 Room Air 05/25/23 17:20 Room Air 05/25/23 16:23 36.8 70 16 120/98 94 Room Air I & O 05/26/23 06:59 Intake Total 1450 ml Balance 1450 ml Capillary Refill : Less Than 3 Seconds General Appearance: No Apparent Distress, WD/WN HEENT: PERRL/EOMI; No Scleral Icterus (L), No Scleral Icterus (R) Neck: Non Tender, Supple Respiratory: Chest Non Tender, Lungs Clear, Normal Breath Sounds, No Accessory Muscle Use, No Respiratory Distress Cardiovascular: Regular Rate, Rhythm, No Murmur, Other (lower extremity edema equal bilaterally) Gastrointestinal: no organomegaly, distended (firm); No rebound; tenderness (diffusely) Extremity: No Calf Tenderness, Pedal Edema, Swelling Neurologic/Psychiatric: Alert, Oriented x3 Skin: Other (RLE signs of venous stasis changes; superficial R great toe l aceration) Results Lab Laboratory Tests 05/25/23 10:40: Urine Color YELLOW, Urine Clarity CLEAR, Urine pH 5.5, Urine Specific Clarence 1.025H, Urine Protein 3+H, Urine Glucose (UA) NEGATIVE, Urine Ketones NEGATIVE, Urine Nitrite NEGATIVE, Urine Bilirubin NEGATIVE, Urine Urobilinogen 0.2, Urine Leukocyte Esterase TRACEH, Urine RBC (Auto) 2+H, Urine RBC 5-10H, Urine WBC 2-5, Urine Squamous Epithelial Cells 5-10, Urine Crystals NONE, Urine Bacteria MODERATEH, Urine Casts PRESENT, Urine Hyaline Casts 2-5H, Urine Mucus SMALLH, Urine Culture Indicated YES 05/25/23 10:45: White Blood Count 5.9, Red Blood Count 3.53L, Hemoglobin 10.0L, Hematocrit 33L, Mean Corpuscular Volume 94, Mean Corpuscular Hemoglobin 28, Mean Corpuscular Hemoglobin Concent 30L, Red Cell Distribution Width 15.5H, Platelet Count 173, Mean Platelet Volume 11.3, Immature Granulocyte % (Auto) 0, Neutrophils (%) (Auto) 73, Lymphocytes (%) (Auto) 16, Monocytes (%) (Auto) 8, Eosinophils (%) (Auto) 3, Basophils (%) (Auto) 1, Neutrophils # (Auto) 4.4, Lymphocytes # (Auto) 0.9L, Monocytes # (Auto) 0.5, Eosinophils # (Auto) 0.2, Basophils # (Auto) 0.0, Immature Granulocyte # (Auto) 0.0, Sodium Level 131L, Potassium Level 4.6, Chloride Level 102, Carbon Dioxide Level 18L, Anion Gap 11, Blood Urea Nitrogen 23H, Creatinine 1.06, Estimat Glomerular Filtration Rate 51, BUN/Creatinine Ratio 22, Glucose Level 163H, Calcium Level 8.8, Corrected Calcium 9.1, Magnesium Level 1.8, Total Bilirubin < 0.1L, Aspartate Amino Transf (AST/SGOT) 30, Alanine Aminotransferase (ALT/SGPT) 12, Alkaline Phosphatase 128, Total Protein 7.5, Albumin 3.6, Thyroid Stimulating Hormone (TSH) 5.77H, Free Thyroxine 0.86 05/26/23 05:04: White Blood Count 5.2, Red Blood Count 3.58L, Hemoglobin 9.9L, Hematocrit 33L, Mean Corpuscular Volume 92, Mean Corpuscular Hemoglobin 28, Mean Corpuscular Hemoglobin Concent 30L, Red Cell Distribution Width 15.3H, Platelet Count 163, Mean Platelet Volume 10.9, Immature Granulocyte % (Auto) 0, Neutrophils (%) (Auto) 73, Lymphocytes (%) (Auto) 14, Monocytes (%) (Auto) 10, Eosinophils (%) (Auto) 2, Basophils (%) (Auto) 1, Neutrophils # (Auto) 3.8, Lymphocytes # (Auto) 0.7L, Monocytes # (Auto) 0.5, Eosinophils # (Auto) 0.1, Basophils # (Auto) 0.0, Immature Granulocyte # (Auto) 0.0, Sodium Level 131L, Potassium Level 4.8, Chloride Level 100, Carbon Dioxide Level 22, Anion Gap 9, Blood Urea Nitrogen 23H, Creatinine 1.17, Estimat Glomerular Filtration Rate 45, BUN/Creatinine Ratio 20, Glucose Level 213H, Calcium Level 8.7 Microbiology 05/25/23 Urine Culture - Preliminary, Resulted Escherichia coli Gram Pos Mixed Bacterial Lakshmi Assessment/Plan Assessment/Plan Assessment/Plan Severe Constipation with Dilation of Cecum HTN, DM, Afib UTI Pt is taking Miralax. Continue to monitor for bowel movements and abdominal pain; if pt gets worse, will consider surgery- colon resection, possible sub- total colectomy. Continue to hold Apixiban in case surgery is necessary. Dysuria is better today, continue IV Abx for UTI. PASTOR THOMAS DO 05/26/23 1338: Subjective Time Seen by a Provider: 13:08 Subjective/Events-last exam Pt seen and examined, she is sleepy but wakes up and answers questions. States her belly is same size, possibly bigger. Review of Systems General: No Chills, No Night Sweats Pulmonary: No Dyspnea, No Cough Cardiovascular: No: Chest Pain, Palpitations Gastrointestinal: Abdominal Pain (rates a 0 currently, but was a 10 when she was transferred for x-ray), Constipation; No: Nausea, Vomiting Objective Exam General Appearance: No Apparent Distress, Other (appears stated age, is sleepy) HEENT: PERRL/EOMI Respiratory: Chest Non Tender, Lungs Clear, Normal Breath Sounds, No Accessory Muscle Use, No Respiratory Distress Cardiovascular: Irregularly Irregular, Other (lower extremity edema equal bilaterally) Gastrointestinal: no organomegaly, distended (firm); No rebound; tenderness (diffusely) Extremity: No Calf Tenderness, Pedal Edema, Swelling Neurologic/Psychiatric: Alert Assessment/Plan Assessment/Plan Assessment/Plan Severe Constipation with Dilation of Cecum HTN, DM, Afib UTI Pt is taking Miralax. Continue to monitor for bowel movements and abdominal pain; if pt gets worse, will consider surgery- colon resection, possible sub- total colectomy. Continue to hold Apixiban in case surgery is necessary. Dysuria is better today, continue IV Abx for UTI. Supervisory-Addendum Brief Verification & Attestation Participated in pt care: history, MDM, physical Personally performed: exam, history, MDM, supervision of care Care discussed with: Medical Student Procedures: n/a Verification and Attestation of Medical Student E/M Service A medical student performed and documented this service. I then reviewed and verified all information documented by the medical student and made modifications to such information, when appropriate. I personally performed a physical exam, medical decision making and then discussed any differences between the notes and made revisions as necessary to create one note. Pastor Thomas , 05/26/23 , 13:32 ELI DURAN May 26, 2023 10:37 PASTOR THOMAS DO May 26, 2023 13:38
[2023-05-26 11:31] VITALS: BP 151/79
[2023-05-26] MEDS: inSUlin ASPART 1 UNIT/0.01 ML (PER UNIT) SC SCH ×3 (11:36→21:09)
[2023-05-26] MEDS ORDERED: HYDR-3820 PO (14:15)
[2023-05-26] MEDS ORDERED: CALC600T91 PO (14:15)
[2023-05-26] MEDS ORDERED: LEVO112T55 PO (14:15)
[2023-05-26] MEDS ORDERED: ATOR40TA70 PO (14:15)
[2023-05-26] MEDS ORDERED: MAGN400T39 PO ×2 (14:15)
[2023-05-26] MEDS ORDERED: NYST1000 PO (14:15)
[2023-05-26] MEDS ORDERED: DICLOFENAC 1% GEL 50 GM TUBE TOP PRN (15:45)
[2023-05-26] MEDS ORDERED: NON-FORMULARY MEDICATION 1 EA EA (Hydroxyzine HCl 25 MG) PO PRN (15:45)
--- NOTE | 2023-05-26 15:45 | History & Physical-Hospitalist ---
History of Present Illness HPI/Chief Complaint Calista Fry is an 87 year old female with PMH HTN, T2DM, hypothyroidism, morbid obesity, electrolyte disturbances, who presented with abdominal pain. She has a history of chronic diarrhea. She had not had a bowel movement for several days. She also reports back pain which is chronic. She denies chest pain and shortness of breath. She denies nausea and vomiting. Source: patient Exam Limitations: no limitations Date Seen 05/26/23 Time Seen by a Provider: 10:30 Attending Physician Violetta Larios MD PCP Admitting Physician: Leena Rockwell MD Attending Physician: Cholo Huang MD Referring Physician Date of Admission May 25, 2023 at 16:21 Home Medications & Allergies Home Medications Reviewed patient Home Medication Reconciliation performed by pharmacy medication reconciliations medic technician and/or nursing. Patients Allergies have been reviewed. Allergies Allergies Coded Allergies No Known Drug Allergies (Epechpaj44/17/19) Past Phxytln-[id number]-[id number] Hx Patient Social History Tobacco Use?: No Smoking Status: Never a Smoker Substance use?: No Alcohol Use?: No Pt feels they are or have been: No Immunizations Up To Date Date of Influenza Vaccine: Apr 20, 2011 First/Initial COVID19 Vaccinat: RECEIVED, UNK WHEN Second COVID19 Vaccination Wally: RECEIVED, UNK WHEN Tetanus Booster (TDap): Unknown Hepatitis A: No Hepatitis B: No PED Vaccines UTD: No Date of Pneumonia Vaccine: Aug 21, 2009 Current Status Advance Directives: Yes Advance Directive Location: Home Communicates: Verbally Primary Language: Macedonian Preferred Spoken Language: Macedonian Is interpretation needed?: No Sensory deficits: Vision impairment Implanted or Applied Medical D: Orthopedic hardware Past Medical History Surgeries: Abdominal (Hernia repair), Appendectomy, Gallbladder, Hysterectomy, Joint Replacement, Orthopedic, Tonsillectomy Atrial Fibrillation (anticoagulated), Chronic Edema/Swelling, High Cholesterol, Hypertension Neuropathy Sexually Transmitted Disease: No HIV/AIDS: No UTI-Chronic Gastroesophageal Reflux, Hiatal Hernia, Irritable Bowel Degenerate Disk Disease, Arthritis, Chronic Back Pain Diabetes, Insulin dep, Hypothyroidsim Cataract Loss of Vision: Denies Hearing Impairment: Denies Anxiety, Depression Pruritis Blood Disorders: No Family Medical History Cancer 03 MOTHER (STOMACH COLON ESOPHAGEAL) Cancer of colon 03 MOTHER 09 SISTER Family history: Cardiovascular disease 09 SISTER (HAS PACEMAKER) Family history: Diabetes mellitus 03 FATHER Myocardial infarction 03 FATHER No Family History of: Abdominal aortic aneurysm [place]'s disease Alcoholism Aphasia Cataract Chest pain Congenital heart disease Congestive heart failure Cystic fibrosis Dementia Dysphagia Family history: Allergy Family history: Alzheimer's disease Family history: Arthritis Family history: Asthma Family history: Coronary thrombosis Family history: Gastrointestinal disease Family history: Glaucoma Family history: Hypertension Family history: Osteoporosis Family history: Thyroid disorder Headache Hearing loss Heart disease Hereditary disease History of - anemia History of - respiratory disease History of drug abuse Human immunodeficiency virus (HIV) seropositivity Hypercholesterolemia Infertile Kidney disease Malignant neoplasm of lung Parkinson's disease Prostate cancer Psychotic disorder Seizure disorder Stroke Tuberculosis Visual impairment Heart Disease (sister - pacemaker, Father had ID), Cancer (Colon - mother and sister), Hypertension Review of Systems Constitutional: no symptoms reported Respiratory: no symptoms reported Cardiovascular: no symptoms reported Gastrointestinal: abdominal pain, constipation Physical Exam Physical Exam Vital Signs Vital Signs - First Documented 05/25/23 05/25/23 10:14 16:23 Temp 36.8 Pulse 76 Resp 22 B/P (MAP) 120/98 Pulse Ox 94 O2 Delivery Room Air Capillary Refill : Less Than 3 Seconds Height, Weight, BMI Height: 5'2.00" Weight: 224lbs. 0.9oz. [id number]; 44.14 BMI Method:Stated General Appearance: No Apparent Distress, Obese HEENT: PERRL/EOMI, Pharynx Normal Neck: Normal Inspection, Supple Respiratory: Lungs Clear, No Respiratory Distress Cardiovascular: Regular Rate, Rhythm, No Murmur Gastrointestinal: Normal Bowel Sounds, Soft, Tenderness Extremity: Normal Inspection, No Pedal Edema Neurologic/Psychiatric: Alert, Normal Mood/Affect Skin: Normal Color, Warm/Dry Results Results/Procedures Labs Laboratory Tests 05/25/23 10:45 05/26/23 05:04 Patient resulted labs reviewed. Imaging: Reviewed Imaging Report Assessment/Plan Admission Diagnosis Constipation Admission Status: Observation Assessment and Plan Constipation Dilation of colon CT with significant stool burden, dilated colon Surgery consulted Miralax Clear liquids UTI Rocephin T2DM Sliding scale insulin HTN Hypothyroidism AFib HLD GERD IBS Chronic pain Morbid obesity Hold Eliquis for possible surgical intervention Continue home meds as able DVT prophylaxis: Lovenox Diagnosis/Problems Diagnosis/Problems (1) Constipation Status: Acute Qualifiers: Constipation type: unspecified constipation type Qualified Codes: K59.00 - Constipation, unspecified (2) Dilatation of colon Status: Acute (3) Urinary tract infection Status: Acute Qualifiers: Urinary tract infection type: site unspecified Hematuria presence: without hematuria Qualified Codes: N39.0 - Urinary tract infection, site not specified (4) HTN (hypertension) Status: Chronic (5) IDDM (insulin dependent diabetes mellitus) Status: Acute (6) Obesity Status: Chronic CHOLO HUANG MD May 26, 2023 15:45
[2023-05-26 16:00] VITALS: BP 151/76
[2023-05-26] MEDS ORDERED: ENOXAPARIN 40 MG/0.4 ML SYRINGE SQ SCH (16:00)
[2023-05-26] MEDS: LACTATED RINGERS 1,000 ML 1,000 ML IV SCH (16:05)
[2023-05-26] MEDS: FUROSEMIDE 20 MG TABLET PO SCH (16:05)
[2023-05-26] MEDS: PRAMIPEXOLE 0.125 MG TABLET PO SCH (16:38)
[2023-05-26] MEDS: NYSTATIN ORAL SUSP 5 ML UDC PO SCH ×2 (16:38→20:28)
[2023-05-26] MEDS: ENOXAPARIN 40 MG/0.4 ML SYRINGE SQ SCH (16:39)
[2023-05-26] MEDS: cefTRIAXone IV/IM 1,000 MG in NS (IVPB) 50 ML 50 ML IV SCH (16:39)
[2023-05-26 19:50] VITALS: BP 156/70
[2023-05-26] MEDS ORDERED: NON-FORMULARY MEDICATION 1 EA EA (Magnesium Oxide (Magnesium) 400 MG) PO SCH (20:00)
[2023-05-26] MEDS: CARBIDOPA/LEVODOPA 25/100 TABLET PO SCH (20:28)
[2023-05-26] MEDS: MAGNESIUM OXIDE 400 MG TABLET PO SCH (20:29)
[2023-05-26] MEDS: GABAPENTIN 400 MG CAPSULE PO SCH (20:29)
[2023-05-26] MEDS ORDERED: GABAPENTIN 400 MG CAPSULE PO SCH (21:00)
[2023-05-26 23:01] VITALS: BP 128/54
[2023-05-27] MEDS: LACTATED RINGERS 1,000 ML 1,000 ML IV SCH ×2 (02:00→11:15)
[2023-05-27 03:54] VITALS: BP 134/75
[2023-05-27] MEDS: inSUlin ASPART 1 UNIT/0.01 ML (PER UNIT) SC SCH ×5 (05:36→20:50)
[2023-05-27] MEDS: VENlafaxine 37.5 MG (EFFEXOR) TAB PO SCH (05:53)
[2023-05-27] MEDS: LEVOTHYROXINE 112 MCG TABLET PO SCH (05:53)
[2023-05-27] MEDS: ENOXAPARIN 40 MG/0.4 ML SYRINGE SQ SCH (05:53)
[2023-05-27 07:38] VITALS: BP 154/62
[2023-05-27] MEDS: NYSTATIN ORAL SUSP 5 ML UDC PO SCH ×4 (07:55→19:40)
[2023-05-27] MEDS: PANTOPRAZOLE INJECTION 40 MG VIAL IV SCH (07:55)
[2023-05-27] MEDS: MAGNESIUM OXIDE 400 MG TABLET PO SCH ×3 (07:56→19:40)
[2023-05-27] MEDS: amLODIPine 10 MG TABLET PO SCH (07:56)
[2023-05-27] MEDS: GABAPENTIN 400 MG CAPSULE PO SCH ×2 (07:56→19:40)
[2023-05-27] MEDS: CARBIDOPA/LEVODOPA 25/100 TABLET PO SCH ×2 (07:57→19:40)
--- NOTE | 2023-05-27 08:47 | Progress Note - Surgery ---
ELI DURAN 05/27/23 0847: Subjective Date Seen by a Provider: May 27, 2023 Time Seen by a Provider: 08:18 Subjective/Events-last exam Calista Fry was examined this morning lying in her hospital bed. She is feeling better this morning after having several bowel movements yesterday and again this morning. She is not having any abdominal pain, but says that she can "tell that her bowels are working". She had jello, coffee and apple juice this morning and is not having any N/V. She does think she had some diarrhea but she was unsure because she was not at the toilet, it was in her bed. She has a headache this morning and she still has some lower back pain when moving. Review of Systems General: No Chills, No Night Sweats HEENT: Head Aches Pulmonary: No Dyspnea, No Cough; Other ("I feel like I am wheezing") Cardiovascular: No: Chest Pain, Palpitations Gastrointestinal: No: Nausea, Vomiting, Abdominal Pain Genitourinary: No Dysuria, No Frequency Musculoskeletal: back pain (when moving) Objective Exam Vital Signs Date Time Temp Pulse Resp B/P (MAP) Pulse Ox O2 Delivery O2 Flow Rate FiO2 05/27/23 08:00 Room Air 05/27/23 07:38 36.6 72 18 154/62 (92) 98 Nasal Cannula 2.00 05/27/23 03:54 36.6 75 18 134/75 (94) 92 Nasal Cannula 2.00 05/26/23 23:01 36.8 53 18 128/54 (78) 94 Nasal Cannula 2.00 05/26/23 20:40 Nasal Cannula 2.00 05/26/23 19:50 36.8 72 18 156/70 (98) 99 Nasal Cannula 2.00 05/26/23 16:00 36.9 65 19 151/76 (101) 90 Nasal Cannula 2.00 05/26/23 11:31 36.3 68 18 151/79 (103) 91 Room Air 05/26/23 08:43 Room Air I & O 05/27/23 07:00 Intake Total 2230 ml Balance 2230 ml Capillary Refill : Less Than 3 Seconds General Appearance: No Apparent Distress, Obese HEENT: PERRL/EOMI; No Scleral Icterus (L), No Scleral Icterus (R) Neck: Non Tender, Supple Respiratory: Chest Non Tender, Lungs Clear, Normal Breath Sounds, No Accessory Muscle Use, No Respiratory Distress Cardiovascular: Irregularly Irregular Gastrointestinal: non tender, soft, no organomegaly, distended (still large, but smaller than yesterday and soft today); No rebound Extremity: No Calf Tenderness, Swelling Neurologic/Psychiatric: Alert, Oriented x3 Results Lab Laboratory Tests 05/26/23 10:51: Glucometer 198H 05/26/23 16:41: Glucometer 173H 05/26/23 20:52: Glucometer 179H 05/27/23 05:34: Glucometer 115H Microbiology 05/25/23 Urine Culture - Preliminary, Resulted Escherichia coli Gram Pos Mixed Bacterial Lakshmi See Comments Assessment/Plan Assessment/Plan Assessment/Plan Severe Constipation with Dilation of Cecum HTN, DM, Afib UTI Pt has had several bowel movements and her abdomen is soft today and much less distended. Apixiban can be restarted as surgery is not indicated at this time. Dysuria is better today, continue IV Abx for UTI. PASTOR THOMAS DO 05/27/23 1146: Subjective Time Seen by a Provider: 11:31 Subjective/Events-last exam Pt seen and examined, sitting up in the chair and appears more alert. She has had multiple BMs. Review of Systems General: No Chills, No Night Sweats HEENT: Head Aches Pulmonary: No Dyspnea, No Cough; Other ("I feel like I am wheezing") Cardiovascular: No: Chest Pain, Palpitations Gastrointestinal: No: Nausea, Vomiting, Abdominal Pain Genitourinary: No Dysuria, No Frequency Musculoskeletal: back pain (when moving) Objective Exam General Appearance: No Apparent Distress, Obese HEENT: PERRL/EOMI Respiratory: Lungs Clear, Normal Breath Sounds, No Accessory Muscle Use, No Respiratory Distress Cardiovascular: No Murmur, Irregularly Irregular Gastrointestinal: non tender, soft, no organomegaly, distended (still large, but smaller than yesterday and soft today) Extremity: Swelling Assessment/Plan Assessment/Plan Assessment/Plan Severe Constipation with Dilation of Cecum HTN, DM, Afib UTI Pt has had several bowel movements and her abdomen is soft today and much less distended. Apixiban can be restarted as surgery is not indicated at this time. Dysuria is better today, continue IV Abx for UTI. Will start minced and moist diet, discussed this case with Hospitalist. Supervisory-Addendum Brief Verification & Attestation Participated in pt care: history, MDM, physical Personally performed: exam, history, MDM, supervision of care Care discussed with: Medical Student Procedures: n/a Verification and Attestation of Medical Student E/M Service A medical student performed and documented this service. I then reviewed and verified all information documented by the medical student and made modifications to such information, when appropriate. I personally performed a physical exam, medical decision making and then discussed any differences between the notes and made revisions as necessary to create one note. Pastor Thomas , 05/27/23 , 11:46 ELI DURAN May 27, 2023 08:47 PASTOR THOMAS DO May 27, 2023 11:46
[2023-05-27] MEDS ORDERED: MAGNESIUM OXIDE PO SCH (09:00)
[2023-05-27 11:21] VITALS: BP 161/76
--- NOTE | 2023-05-27 11:28 | Progress Note - Hospitalist ---
Subjective HPI/CC On Admission Date Seen by Provider: May 27, 2023 Time Seen by Provider: 09:45 Calista Fry is an 87 year old female with PMH HTN, T2DM, hypothyroidism, morbid obesity, electrolyte disturbances, who presented with abdominal pain. She has a history of chronic diarrhea. She had not had a bowel movement for several days. She also reports back pain which is chronic. She denies chest pain and shortness of breath. She denies nausea and vomiting. Subjective/Events-last exam She is feeling better. She has had several bowel movements. She has no complaints. Objective Exam Vital Signs Vital Signs Date Time Temp Pulse Resp B/P (MAP) Pulse Ox O2 Delivery O2 Flow Rate FiO2 05/27/23 08:00 Room Air 05/27/23 07:38 36.6 72 18 154/62 (92) 98 2.00 Capillary Refill : Less Than 3 Seconds General Appearance: No Apparent Distress, Obese Respiratory: Lungs Clear, No Respiratory Distress Cardiovascular: Regular Rate, Rhythm, No Murmur Gastrointestinal: Soft, Abnormal Bowel Sounds (hyperactive) Extremity: Normal Inspection, No Pedal Edema Neurologic/Psychiatric: Alert, Normal Mood/Affect Skin: Normal Color, Warm/Dry Results/Procedures Lab Patient resulted labs reviewed. Imaging: Reviewed Imaging Report Assessment/Plan Assessment and Plan Assess & Plan/Chief Complaint Constipation Dilation of colon CT with significant stool burden, dilated colon Symptoms improved Surgery following, no plans for surgical intervention Miralax Advance diet as tolerated Stop fluids UTI Urine culture with E coli Transition to Keflex T2DM Sliding scale insulin HTN Hypothyroidism AFib HLD GERD IBS Chronic pain Morbid obesity Continue home meds as able DVT prophylaxis: already receiving therapeutic anticoagulation Diagnosis/Problems Diagnosis/Problems (1) Constipation Status: Acute Qualifiers: Constipation type: unspecified constipation type Qualified Codes: K59.00 - Constipation, unspecified (2) Dilatation of colon Status: Acute (3) Urinary tract infection Status: Acute Qualifiers: Urinary tract infection type: site unspecified Hematuria presence: without hematuria Qualified Codes: N39.0 - Urinary tract infection, site not specified (4) HTN (hypertension) Status: Chronic (5) IDDM (insulin dependent diabetes mellitus) Status: Acute (6) Obesity Status: Chronic CHOLO HUANG MD May 27, 2023 11:28
[2023-05-27] MEDS ORDERED: CEPHALEXIN 250 MG CAPSULE PO NR (12:00)
[2023-05-27] MEDS ORDERED: APIXABAN 5 MG TABLET PO NR (12:00)
--- NOTE | 2023-05-27 13:37 | Physical Therapy Evaluation ---
PT Evaluation-General Medical Diagnosis Admission Date May 25, 2023 at 16:21 Medical Diagnosis: Abdominal pain, chronic diarrhea Onset Date: May 26, 2023 Therapy Diagnosis Therapy Diagnosis: Gait deficit, strength deficit Height/Weight Height (Feet): 5 Height (Inches): 2.00 Weight (Pounds): 224 Weight (Ounces): 0.9 Precautions Precautions/Isolations: Fall Prevention, Standard Precautions Weight Bear Status Right Lower Extremity: Right Full Weight Bearing Left Lower Extremity: Left Full Weight Bearing Referral Physician: Dr. Dimas Reason for Referral: Evaluation/Treatment Medical History Pertinent Medical History: DM, GERD, HTN, Hypothroidism Social History Home: Assisted Living Current Living Status: Alone Prior Prior Level of Function SCALE: Activities may be completed with or without assistive devices. 2-Lhheghbzkg-zmplagh completes the activity by him/herself with no assistance from a helper. 5-Set-up or Clean-up Assistance-helper sets up or cleans up; patient completes activity. [place] assists only prior to or following the activity. 4-Supervision or Touching Assistance-helper provides verbal cues and/or touching/steadying and/or contact guard assistance as patient completes activity. Assistance may be provided throughout the activity or intermittently. 3-Partial/Moderate Assistance-helper does LESS THAN HALF the effort. [place] lifts, holds or supports trunk or limbs, but provides less than half the effort. 2-Substantial/Maximal Assistance-helper does MORE THAN HALF the effort. [place] lifts or holds trunk or limbs and provides more than half the effort. 4-Nvfoumtkj-nakaqw does ALL the effort. Patient does none of the effort to c omplete the activity. Or, the assistance of 2 or more helpers is required for the patient to complete the activity. If activity was not attempted, code reason: 7-Patient Refused. 9-Not Applicable-not attempted and the patient did not perform the activity before the current illness, exacerbation or injury. 10-Not Attempted due to Environmental Limitations-(lack of equipment, weather restraints, etc.). 88-Not Attempted due to Medical Conditions or Safety Concerns. Bed Mobility: 6 Transfers (B,C,W/C): 6 Gait: 6 Stairs: 6 Indoor Mobility (Ambulation): Independent Stairs: Not Applicalbe Prior Devices Use: Walker PT Evaluation-Current Subjective Patient lying supine in bed upon PT arrival, agreeable to treatment. Patient rates pain at 0/10 currently Objective Patient Orientation: Person, Place, Time, Situation Attachments: Oxygen, Forbes Catheter, IV ROM/Strength ROM Lower Extremities WFLs BLEs all planes Strength Lower Extremities 3+/5 BLEs all planes Sensory Vision: Functional Hearing: Functional Sensation Right Lower Extremit: Intact Sensation Left Lower Extremity: Intact Transfers Roll Left to Right (QC): 3 Sit to Lying (QC): 3 Lying to Sitting/Side of Bed(Q: 3 Sit to Stand (QC): 3 Chair/Mek-sz-Wxvpq Xfer(QC): 3 Toilet Transfer (QC): 3 Gait Does the Patient Walk?: Yes Mode of Locomotion: Walk Anticipated Mode of Locomotion: Walk Walk 10 feet (QC): 3 Distance: 40 ' Gait Assistive Device: FWW Balance Sitting Static: Fair Sitting Dynamic: Fair Standing Static: Fair Standing Dynamic: Poor Assessment/Needs Patient performs all bed mobility and transfers with mod A. Patient ambulates 40 feet with FWW, with min A and verbal cues for safety, progression, posture. Patient in chair post treatment with all needs met, nursing notified, daughter in the room and call light in hand. Rehab Potential: Fair PT Felt Washing Machine Tender Goals Felt Washing Machine Tender Goals PT Felt Washing Machine Tender Goals Time Frame: Jun 19, 2023 Roll Left & Right (QC): 6 Sit to Lying (QC): 6 Lying-Sitting on Side/Bed(QC): 6 Sit to Stand (QC): 6 Chair/Ghy-bb-Zkhve Xfer(QC): 6 Toilet Transfer (QC): 6 Does the Patient Walk: Yes Walk 10 feet (QC): 6 Walk 50ft with 2 Turns (QC): 6 Walk 150 ft (QC): 6 PT Plan Problem List Problem List: Activity Tolerance, Functional Strength, Safety, Balance, Gait, Transfer, Bed Mobility, ROM Treatment/Plan Treatment Plan: Continue Plan of Care Treatment Plan: Bed Mobility, Education, Functional Activity Jaida, Functional Strength, Group Therapy, Gait, Safety, Therapeutic Exercise, Transfers Treatment Duration: Jun 19, 2023 Frequency: 6 times per week Estimated Hrs Per Day: .25 hour per day Patient and/or Family Agrees t: Yes Safety Risks/Education Patient Education: Gait Training, Transfer Techniques Teaching Recipient: Patient Teaching Methods: Demonstration, Discussion Response to Teaching: Verbalize Understanding, Return Demonstration Time Time In: 1026 Time Out: 1055 DATE: May 27, 2023 Total Billed Treatment Time: 19 Total Billed Treatment Visit, FORTINO CHUA PT May 27, 2023 13:36
--- NOTE | 2023-05-27 14:59 | Occupational Therapy Eval ---
OT Evaluation-General/PLF Medical Diagnosis Admission Date May 25, 2023 at 16:21 Medical Diagnosis: Abdominal pain, chronic diarrhea Onset Date: May 26, 2023 Therapy Diagnosis Therapy Diagnosis: weakness Height/Weight Height (Feet): 5 Height (Inches): 2.00 Weight (Pounds): 224 Weight (Ounces): 0.9 Precautions Precautions/Isolations: Fall Prevention, Standard Precautions Referral Physician: Dr. Dimas Referral Reason: Evaluation/Treatment Medical History Pertinent Medical History: DM, GERD, HTN, Hypothroidism Current History " I was plugged up with poo". Reviewed History: Yes Social History Home: Assisted Living Current Living Status: Alone ADL-Prior Level of Function SCALE: Activities may be completed with or without assistive devices. 5-Cwpkowguwd-soownlo completes the activity by him/herself with no assistance from a helper. 5-Set-up or Clean-up Assistance-helper sets up or cleans up; patient completes activity. [place] assists only prior to or following the activity. 4-Supervision or Touching Assistance-helper provides verbal cues and/or touching/steadying and/or contact guard assistance as patient completes activity. Assistance may be provided throughout the activity or intermittently. 3-Partial/Moderate Assistance-helper does LESS THAN HALF the effort. [place] lifts, holds or supports trunk or limbs, but provides less than half the effort. 2-Substantial/Maximal Assistance-helper does MORE THAN HALF the effort. [place] lifts or holds trunk or limbs and provides more than half the effort. 0-Uwxnbjvkj-lwnuua does ALL the effort. Patient does none of the effort to complete the activity. Or, the assistance of 2 or more helpers is required for the patient to complete the activity. If activity was not attempted, code reason: 7-Patient Refused. 9-Not Applicable-not attempted and the patient did not perform the activity before the current illness, exacerbation or injury. 10-Not Attempted due to Environmental Limitations-(lack of equipment, weather restraints, etc.). 88-Not Attempted due to Medical Conditions or Safety Concerns. Self Care: Needed Some Help Functional Cognition: Needed Some Help Drive Self: No OT Current Status Subjective Agreeable to OT, daughter in room Pain Location: No Pain Reported Mental Status/Objective Patient Orientation: Person, Place, Time, Situation Current Upper Extremity ROM BUE WFLS for [facility] assisting in ADLS, excessive soft tissue limits joint approximation Upper Extremity Coordination WFLs FMC, shuffles feet and points toes outward w/ inversion Upper Extremity Strength +3/5 grossly ADL-Treatment Eating (QC): 6 Oral Hygiene (QC): 5 Shower/Bathe Self (QC): 7 Upper Body Dressing (QC): 4 Lower Body Dressing (QC): 4 On/Off Footwear (QC): 3 Toileting Hygiene (QC): 4 (frequent trips to bathroom for BM) Ambulated in room for increasing tolerance to activity and healthy promotion for GI flow Education OT Patient Education: Correct positioning, Exercise program, Modified ADL techniques, Progress toward Goal/Update tx plan, Purpose of tx/functional activities, Reviewed precautions, Rehab process, Safety issues, Transfer techniques, Use of adapted equipment Teaching Recipient: Patient, Family (daughter) Teaching Methods: Discussion Response to Teaching: Verbalize Understanding OT Multi Slide Machine Tender Goals Multi Slide Machine Tender Goals 1=Demonstrate adherence to instructed precautions during ADL tasks. 2=Patient will verbalize/demonstrate understanding of assistive devices/mod ifications for ADL. 3=Patient will improve strength/tolerance for activity to enable patient to perform ADL's. OT Education/Plan Problem List/Assessment Assessment: No Skilled OT Needs ID'd Discharge Recommendations Plan/Recommendations: Continue POC Treatment Plan/Plan of Care Patient would benefit from OT for education, treatment and training to promote independence in ADL's, mobility, safety and/or upper extremity function for ADL's. Plan of Care: OTHER (PLOF at [facility]/baseline/EVAL ONLY) Treatment Duration: May 27, 2023 Frequency: 1 time per week Estimated Hrs Per Day: .25 hour per day Agreement: Yes Rehab Potential: Good Remains in recliner w/ clean linen covers Time Start Time: 14:47 Stop Time: 15:01 DATE: May 27, 2023 Total Time Billed (hr/min): 14 Billed Treatment Time EVM 14 min SERAFIN VASQUEZ OT May 27, 2023 14:59
[2023-05-27 16:38] VITALS: BP 151/66
[2023-05-27] MEDS: PRAMIPEXOLE 0.125 MG TABLET PO SCH (16:47)
[2023-05-27 19:17] VITALS: BP 148/65
[2023-05-27] MEDS: APIXABAN 5 MG TABLET PO SCH (19:40)
[2023-05-27] MEDS: CEPHALEXIN 250 MG CAPSULE PO SCH (19:42)
[2023-05-27] MEDS: hydrOXYzine 25 MG CAPSULE PO PRN (19:44)
[2023-05-27 23:44] VITALS: BP 126/59
[2023-05-28] VITALS (7 sets, daily range): BP systolic 135–161; BP diastolic 61–99
[2023-05-28] MEDS ORDERED: HYDROcodone/ACETAMINOPHEN 5 MG/325 MG TABLET ONE (01:03)
[2023-05-28] MEDS: HYDROcodone/ACETAMINOPHEN 5 MG/325 MG TABLET PO PRN ×3 (01:04→20:22)
[2023-05-28] MEDS: VENlafaxine 37.5 MG (EFFEXOR) TAB PO SCH (06:02)
[2023-05-28] MEDS: LEVOTHYROXINE 112 MCG TABLET PO SCH (06:02)
[2023-05-28] MEDS: inSUlin ASPART 1 UNIT/0.01 ML (PER UNIT) SC SCH ×4 (06:02→20:22)
--- NOTE | 2023-05-28 08:15 | Progress Note - Surgery ---
ELI DURAN 05/28/23 0815: Subjective Date Seen by a Provider: May 28, 2023 Time Seen by a Provider: 08:00 Subjective/Events-last exam Calista Fry was examined this morning sitting in her chair and eating breakfast. She says she was in a lot of pain last night but was able to sleep after some pain medication. She is still in pain this morning "in all of my joints". She is still having bowel movements, the most recent was before breakfast; they have been a mix of solid and loose stools. Today was the first time she had been out of bed in two days and she was glad to get up but it did cause her more arthritic pain, especially in her back and shoulders. She does not know if she is ready to leave today because she is afraid her pain is not under control enough to be transferred. She says that "hydrocodone and oxycodone don't work fast enough any more". Review of Systems General: No Chills, No Night Sweats HEENT: No Head Aches, No Dysphasia Pulmonary: Dyspnea (on 1L nasal canula when I was in the room); No Cough Cardiovascular: No: Chest Pain (states she had some when she was transferred but does not have any at rest), Palpitations Gastrointestinal: No: Nausea, Vomiting, Abdominal Pain, Constipation Genitourinary: No Dysuria, No Frequency, No Hematuria Musculoskeletal: shoulder pain, back pain Objective Exam Vital Signs Date Time Temp Pulse Resp B/P (MAP) Pulse Ox O2 Delivery O2 Flow Rate FiO2 05/28/23 07:59 36.7 63 20 161/99 (119) 97 Nasal Cannula 1.00 05/28/23 03:39 36.9 60 18 135/78 (97) 93 Room Air 0.00 0.00 05/27/23 23:44 36.6 55 18 126/59 (81) 93 Room Air 0.00 0.00 05/27/23 19:47 Room Air 05/27/23 19:17 36.2 60 18 148/65 (92) 92 Room Air 05/27/23 16:38 36.8 60 19 151/66 (94) 95 Room Air 05/27/23 11:21 36.6 61 18 161/76 (104) 99 Nasal Cannula 2.00 I & O 05/28/23 07:00 Intake Total 3390 ml Balance 3390 ml Capillary Refill : Less Than 3 Seconds General Appearance: No Apparent Distress, Obese HEENT: PERRL/EOMI, Moist Mucous Membranes; No Scleral Icterus (L), No Scleral Icterus (R) Neck: Non Tender, Supple Respiratory: Chest Non Tender, Lungs Clear, Normal Breath Sounds, No Accessory Muscle Use, Respiratory Distress (she was breathing heavily when I walked in the room and throughout our conversation) Cardiovascular: Irregularly Irregular Gastrointestinal: non tender, soft, no organomegaly, distended (still slightly distended, much improved from admission; soft) Extremity: Swelling Neurologic/Psychiatric: Alert, Oriented x3 Results Lab Laboratory Tests 05/27/23 11:25: Glucometer 237H 05/27/23 16:42: Glucometer 255H 05/27/23 20:16: Glucometer 224H Microbiology 05/25/23 Urine Culture - Final, Complete Escherichia coli Gram Pos Mixed Bacterial Lakshmi See Comments Assessment/Plan Assessment/Plan Assessment/Plan Severe Constipation with Dilation of Cecum - she is having bowel movements; abdomen is much less distended and is soft HTN, DM, Afib UTI - dysuria has resolved Pt is still having bowel movements and tolerating minced and moist diet well. Continue to advance diet as tolerated. Dysuria has resolved, continue oral Abx for UTI. Patient can be discharged to facility on oral Abx and diet as tolerated; one scoop of Miralax in beverage daily is recommended to prevent constipation in the future. PASTOR THOMAS DO 05/28/23 1332: Subjective Time Seen by a Provider: 13:23 Subjective/Events-last exam Pt seen and examined, states she has no abdominal pain; just pain all over from arthritis. She is tolerating diet and states when she moves she has BM Review of Systems General: No Chills, No Night Sweats Pulmonary: Dyspnea (on 1L nasal canula when I was in the room); No Cough Cardiovascular: No: Chest Pain (states she had some when she was transferred but does not have any at rest), Palpitations Gastrointestinal: Diarrhea; No: Nausea, Vomiting, Abdominal Pain Musculoskeletal: shoulder pain, back pain Objective Exam General Appearance: No Apparent Distress, Obese HEENT: PERRL/EOMI, Moist Mucous Membranes Respiratory: Lungs Clear, Normal Breath Sounds, No Accessory Muscle Use, No Respiratory Distress Cardiovascular: No Murmur, Irregularly Irregular Gastrointestinal: non tender, soft, no organomegaly, distended (slightly distended, possibly more than yesterday but soft) Extremity: Swelling Neurologic/Psychiatric: Alert, Oriented x3 Assessment/Plan Assessment/Plan Assessment/Plan Severe Constipation with Dilation of Cecum - she is having bowel movements; abdomen is much less distended and is soft HTN, DM, Afib UTI - dysuria has resolved Pt is still having bowel movements and tolerating minced and moist diet well. Continue to advance diet as tolerated. Dysuria has resolved, continue oral Abx for UTI. Patient can be discharged to facility on oral Abx and diet as tolerated; one scoop of Miralax in beverage daily is recommended to prevent constipation in the future. Supervisory-Addendum Brief Verification & Attestation Participated in pt care: history, MDM, physical Personally performed: exam, history, MDM, supervision of care Care discussed with: Medical Student Procedures: n/a Verification and Attestation of Medical Student E/M Service A medical student performed and documented this service. I then reviewed and verified all information documented by the medical student and made modifications to such information, when appropriate. I personally performed a physical exam, medical decision making and then discussed any differences between the notes and made revisions as necessary to create one note. Pastor Thomas , 05/28/23 , 13:31 ELI DURAN May 28, 2023 08:15 PASTOR THOMAS DO May 28, 2023 13:32
--- NOTE | 2023-05-28 08:55 | Physical Therapy Daily Note ---
PT Daily Note-Current Subjective Pt found seated in recliner upon entry. Agreed to PT. States that she is stiff and sore today. Does not rate pain. Pain Section J - Health Conditions 1. Rarely or not at all 2. Occasionally 3. Frequently 4. Almost constantly 8. Unable to answer Pain Effect on Sleep: 1 Pain Interference with Therapy: 1 Pain Interference w/Day-to-Day: 1 Mental Status Patient Orientation: Person, Place Attachments: Oxygen 1L Transfers SCALE: Activities may be completed with or without assistive devices. 8-Gwyisgeumy-ubyqtha completes the activity by him/herself with no assistance from a helper. 5-Set-up or Clean-up Assistance-helper sets up or cleans up; patient completes activity. [place] assists only prior to or following the activity. 4-Supervision or Touching Assistance-helper provides verbal cues and/or touching/steadying and/or contact guard assistance as patient completes activity. Assistance may be provided throughout the activity or intermittently. 3-Partial/Moderate Assistance-helper does LESS THAN HALF the effort. [place] lifts, holds or supports trunk or limbs, but provides less than half the effort. 2-Substantial/Maximal Assistance-helper does MORE THAN HALF the effort. [place] lifts or holds trunk or limbs and provides more than half the effort. 5-Dcbvxxccq-jgvgvx does ALL the effort. Patient does none of the effort to complete the activity. Or, the assistance of 2 or more helpers is required for the patient to complete the activity. If activity was not attempted, code reason: 7-Patient Refused. 9-Not Applicable-not attempted and the patient did not perform the activity before the current illness, exacerbation or injury. 10-Not Attempted due to Environmental Limitations-(lack of equipment, weather restraints, etc.). 88-Not Attempted due to Medical Conditions or Safety Concerns. Sit to Stand (QC): 4 Weight Bearing Right Lower Extremity: Right Full Weight Bearing Left Lower Extremity: Left Full Weight Bearing Gait Training Does the Patient Walk?: Yes Distance: 50 Walk 10 feet (QC): 4 Walk 50 ft with 2 Turns(QC): 4 Gait Persons Needed: 1 Gait Assistive Device: FWW Assessment Current Status: Good Progress Pt performs sit to stand transfer from recliner /c CGA for safety due to strength deficits. Uses UEs for push off from B armrests. Pt ambulates /c use of a FWW up to 50 feet before returning to room. Pt displays shortness of breath throughout visit and reports that she is a mouth breather. She required CGA during gait training due to balance deficits. Also required assistance to manage O2 tank. Pt displays a slow gait pattern /c slightly forward trunk flexion and rounded shoulders. Pt has personal FWW from home that is too tall and displays excessive elbow flexion during ambulation. Pt left in recliner /c call light in place and all needs met post-treatment. Continue to progress pt per POC. PT Usp Goals Melter Supervisor [employer] Furn[employer] Goals PT Melter Supervisor Electric Arc Furnace Goals Time Frame: Jun 19, 2023 Roll Left & Right (QC): 6 Sit to Lying (QC): 6 Lying-Sitting on Side/Bed(QC): 6 Sit to Stand (QC): 6 Chair/Shh-rq-Cnyzl Xfer(QC): 6 Toilet Transfer (QC): 6 Does the Patient Walk: Yes Walk 10 feet (QC): 6 Walk 50ft with 2 Turns (QC): 6 Walk 150 ft (QC): 6 PT Plan Treatment/Plan Treatment Plan: Continue Plan of Care Treatment Plan: Bed Mobility, Education, Functional Activity Jaida, Functional Strength, Group Therapy, Gait, Safety, Therapeutic Exercise, Transfers Treatment Duration: Jun 19, 2023 Frequency: 6 times per week Estimated Hrs Per Day: .25 hour per day Patient and/or Family Agrees t: Yes Time Time In: 826 Time Out: 845 DATE: May 28, 2023 Total Billed Treatment Time: 19 Total Billed Treatment 1 visit GT x 1 TIM SMITH EXTRA HAND May 28, 2023 08:55
[2023-05-28] MEDS: GABAPENTIN 400 MG CAPSULE PO SCH ×2 (09:02→20:21)
[2023-05-28] MEDS: amLODIPine 10 MG TABLET PO SCH (09:02)
[2023-05-28] MEDS: CARBIDOPA/LEVODOPA 25/100 TABLET PO SCH ×2 (09:02→20:22)
[2023-05-28] MEDS: NYSTATIN ORAL SUSP 5 ML UDC PO SCH ×4 (09:02→20:22)
[2023-05-28] MEDS: APIXABAN 5 MG TABLET PO SCH ×2 (09:02→20:22)
[2023-05-28] MEDS: CEPHALEXIN 250 MG CAPSULE PO SCH ×2 (09:02→20:22)
[2023-05-28] MEDS: MAGNESIUM OXIDE 400 MG TABLET PO SCH ×3 (09:03→20:22)
[2023-05-28] MEDS: PANTOPRAZOLE INJECTION 40 MG VIAL IV SCH (09:04)
[2023-05-28] MEDS: PRAMIPEXOLE 0.125 MG TABLET PO SCH (16:23)
[2023-05-28] MEDS: FUROSEMIDE 20 MG TABLET PO SCH (16:23)
--- NOTE | 2023-05-28 17:06 | Progress Note - Hospitalist ---
Subjective HPI/CC On Admission Date Seen by Provider: May 28, 2023 Time Seen by Provider: 10:05 Calista Fry is an 87 year old female with PMH HTN, T2DM, hypothyroidism, morbid obesity, electrolyte disturbances, who presented with abdominal pain. She has a history of chronic diarrhea. She had not had a bowel movement for several days. She also reports back pain which is chronic. She denies chest pain and shortness of breath. She denies nausea and vomiting. Subjective/Events-last exam She is still feeling weak. She has had several bowel movements. She has no other complaints. Objective Exam Vital Signs Vital Signs Date Time Temp Pulse Resp B/P (MAP) Pulse Ox O2 Delivery O2 Flow Rate FiO2 05/28/23 16:19 36.8 57 97 05/28/23 15:55 20 143/61 (88) Nasal Cannula 2.00 Capillary Refill : Less Than 3 Seconds General Appearance: No Apparent Distress, Obese Respiratory: Lungs Clear, No Respiratory Distress Cardiovascular: Regular Rate, Rhythm, No Murmur Gastrointestinal: Normal Bowel Sounds, Non Tender, Soft Extremity: Normal Inspection, No Pedal Edema Neurologic/Psychiatric: Alert, Normal Mood/Affect, Motor Weakness Results/Procedures Lab Patient resulted labs reviewed. Imaging: Reviewed Imaging Report Assessment/Plan Assessment and Plan Assess & Plan/Chief Complaint Constipation Dilation of colon CT with significant stool burden, dilated colon Symptoms improved Surgery following, no plans for surgical intervention Miralax Debility PT/OT Swing bed evaluation UTI Keflex T2DM Sliding scale insulin HTN Hypothyroidism AFib HLD GERD IBS Chronic pain Morbid obesity Continue home meds as able DVT prophylaxis: already receiving therapeutic anticoagulation Diagnosis/Problems Diagnosis/Problems (1) Constipation Status: Acute Qualifiers: Constipation type: unspecified constipation type Qualified Codes: K59.00 - Constipation, unspecified (2) Dilatation of colon Status: Acute (3) Urinary tract infection Status: Acute Qualifiers: Urinary tract infection type: site unspecified Hematuria presence: without hematuria Qualified Codes: N39.0 - Urinary tract infection, site not specified (4) HTN (hypertension) Status: Chronic (5) IDDM (insulin dependent diabetes mellitus) Status: Acute (6) Obesity Status: Chronic (7) Debility Status: Acute CHOLO HUANG MD May 28, 2023 17:06
[2023-05-28] MEDS: hydrOXYzine 25 MG CAPSULE PO PRN (20:25)
[2023-05-28] MEDS: RT-Ipratropium/Albuterol NEB 3 ML VIAL INH SCH (21:48)
[2023-05-29 03:19] VITALS: BP 126/63
[2023-05-29] MEDS: inSUlin ASPART 1 UNIT/0.01 ML (PER UNIT) SC SCH ×2 (05:24→12:15)
[2023-05-29] MEDS: VENlafaxine 37.5 MG (EFFEXOR) TAB PO SCH (05:40)
[2023-05-29] MEDS: HYDROcodone/ACETAMINOPHEN 5 MG/325 MG TABLET PO PRN (05:40)
[2023-05-29] MEDS: LEVOTHYROXINE 112 MCG TABLET PO SCH (05:41)
[2023-05-29] MEDS: RT-Ipratropium/Albuterol NEB 3 ML VIAL INH SCH (07:44)
[2023-05-29] MEDS: APIXABAN 5 MG TABLET PO SCH (07:46)
[2023-05-29] MEDS: PANTOPRAZOLE INJECTION 40 MG VIAL IV SCH (07:47)
[2023-05-29] MEDS: MAGNESIUM OXIDE 400 MG TABLET PO SCH ×2 (07:47→12:15)
[2023-05-29] MEDS: amLODIPine 10 MG TABLET PO SCH (07:47)
[2023-05-29] MEDS: CEPHALEXIN 250 MG CAPSULE PO SCH (07:47)
[2023-05-29] MEDS: NYSTATIN ORAL SUSP 5 ML UDC PO SCH ×2 (07:47→12:15)
[2023-05-29] MEDS: CARBIDOPA/LEVODOPA 25/100 TABLET PO SCH (07:47)
[2023-05-29] MEDS: GABAPENTIN 400 MG CAPSULE PO SCH (07:47)
[2023-05-29 08:22] VITALS: BP 145/80
--- NOTE | 2023-05-29 08:24 | Progress Note - Surgery ---
ELI DURAN 05/29/23 0824: Subjective Date Seen by a Provider: May 29, 2023 Time Seen by a Provider: 08:00 Subjective/Events-last exam Calista Fry was examined this morning lying in her hospital bed. She is feeling "much better" today than yesterday. Her shoulder pain is gone and her joints are hurting much less overall. She is still having bowel movements, her most recent was this morning. She is ambulating now to the bathroom and says she feels more comfortable doing so without pain. She is tolerating a soft diet without nausea. She is ready to go home today. Review of Systems General: No Chills, No Night Sweats HEENT: No Head Aches Pulmonary: No Dyspnea, No Cough Cardiovascular: No: Chest Pain, Palpitations Gastrointestinal: No: Nausea, Vomiting, Abdominal Pain Genitourinary: No Dysuria, No Frequency Objective Exam Vital Signs Date Time Temp Pulse Resp B/P (MAP) Pulse Ox O2 Delivery O2 Flow Rate FiO2 05/29/23 07:45 96 Nasal Cannula 2.00 05/29/23 03:19 36.7 70 18 126/63 (84) 95 Nasal Cannula 2.00 2.00 05/28/23 23:38 36.6 59 18 136/73 (94) 95 Nasal Cannula 2.00 2.00 05/28/23 21:49 96 Nasal Cannula 2.00 05/28/23 20:29 Nasal Cannula 2.00 05/28/23 20:01 36.9 60 18 155/77 (103) 98 Nasal Cannula 2.00 05/28/23 16:19 36.8 57 97 05/28/23 15:55 36.8 57 20 143/61 (88) 97 Nasal Cannula 2.00 05/28/23 11:19 36.6 61 20 154/72 (99) 94 Nasal Cannula 2.00 I & O 05/29/23 07:00 Intake Total 1010 ml Balance 1010 ml Capillary Refill : Less Than 3 Seconds General Appearance: No Apparent Distress, Obese HEENT: PERRL/EOMI, Moist Mucous Membranes Neck: Non Tender, Supple Respiratory: Chest Non Tender, No Accessory Muscle Use, No Respiratory Distress, Wheezing (on expiration) Cardiovascular: Irregularly Irregular Gastrointestinal: non tender, soft, no organomegaly, distended Extremity: Swelling Neurologic/Psychiatric: Alert, Oriented x3 Results Lab Laboratory Tests 05/28/23 10:34: Glucometer 244H 05/28/23 15:58: Glucometer 259H 05/28/23 19:58: Glucometer 234H 05/29/23 05:17: Glucometer 142H Microbiology 05/25/23 Urine Culture - Final, Complete Escherichia coli Gram Pos Mixed Bacterial Lakshmi See Comments Assessment/Plan Assessment/Plan Assessment/Plan Severe Constipation with Dilation of Cecum - she is having bowel movements; abdomen is much less distended and is soft HTN, DM, Afib UTI - dysuria has resolved Pt is still having bowel movements and tolerating a soft diet well without nausea; continue to advance diet as tolerated. Dysuria has resolved, continue oral Abx for UTI. Patient can be discharged to facility on oral Abx and diet as tolerated; one scoop of Miralax in beverage daily is recommended to prevent constipation in the future. PASTOR THOMAS DO 05/29/23 1141: Subjective Time Seen by a Provider: 11:29 Subjective/Events-last exam Pt seen and examined, denies abdominal pain and is still having BMs. She states she is too weak to walk around. Review of Systems General: No Chills, No Night Sweats Pulmonary: No Dyspnea, No Cough Cardiovascular: No: Chest Pain, Palpitations Gastrointestinal: Diarrhea; No: Nausea, Vomiting, Abdominal Pain Objective Exam General Appearance: No Apparent Distress, Obese HEENT: PERRL/EOMI, Moist Mucous Membranes Respiratory: No Accessory Muscle Use, No Respiratory Distress, Wheezing (on expiration) Cardiovascular: No Murmur, Irregularly Irregular Gastrointestinal: non tender, soft, no organomegaly, distended (softer than yesterday) Neurologic/Psychiatric: Alert, Oriented x3 Assessment/Plan Assessment/Plan Assessment/Plan Severe Constipation with Dilation of Cecum - she is having bowel movements; abdomen is much less distended and is soft HTN, DM, Afib UTI - dysuria has resolved Pt is still having bowel movements and tolerating a soft diet well without nausea; continue to advance diet as tolerated. Dysuria has resolved, continue oral Abx for UTI. Patient can be discharged to facility on oral Abx and diet as tolerated; one scoop of Miralax in beverage daily is recommended to prevent constipation in the future. Supervisory-Addendum Brief Verification & Attestation Participated in pt care: history, MDM, physical Personally performed: exam, history, MDM, supervision of care Care discussed with: Medical Student Procedures: n/a Verification and Attestation of Medical Student E/M Service A medical student performed and documented this service. I then reviewed and verified all information documented by the medical student and made modifications to such information, when appropriate. I personally performed a physical exam, medical decision making and then discussed any differences between the notes and made revisions as necessary to create one note. Pastor Thomas , 05/29/23 , 11:40 ELI DURAN May 29, 2023 08:24 PASTOR THOMAS DO May 29, 2023 11:41
[2023-05-29] MEDS ORDERED: PANTOPRAZOLE 40 MG TABLET PO SCH (09:00)
[2023-05-29] MEDS ORDERED: RT-Ipratropium/Albuterol NEB 3 ML VIAL INH PRN (10:00)
--- NOTE | 2023-05-29 10:47 | Physical Therapy Daily Note ---
PT Daily Note-Current Subjective Pt is agreeable to PT. Denies pain. Pain Numeric Pain Scale: 0-No Pain Location: No Pain Reported Section J - Health Conditions 1. Rarely or not at all 2. Occasionally 3. Frequently 4. Almost constantly 8. Unable to answer Pain Effect on Sleep: 1 Pain Interference with Therapy: 1 Pain Interference w/Day-to-Day: 1 Transfers SCALE: Activities may be completed with or without assistive devices. 0-Qsictrvrjs-vopkkfo completes the activity by him/herself with no assistance from a helper. 5-Set-up or Clean-up Assistance-helper sets up or cleans up; patient completes activity. [place] assists only prior to or following the activity. 4-Supervision or Touching Assistance-helper provides verbal cues and/or touching/steadying and/or contact guard assistance as patient completes ac tivity. Assistance may be provided throughout the activity or intermittently. 3-Partial/Moderate Assistance-helper does LESS THAN HALF the effort. [place] lifts, holds or supports trunk or limbs, but provides less than half the effort. 2-Substantial/Maximal Assistance-helper does MORE THAN HALF the effort. [place] lifts or holds trunk or limbs and provides more than half the effort. 4-Usivwyxyi-txkpij does ALL the effort. Patient does none of the effort to complete the activity. Or, the assistance of 2 or more helpers is required for the patient to complete the activity. If activity was not attempted, code reason: 7-Patient Refused. 9-Not Applicable-not attempted and the patient did not perform the activity before the current illness, exacerbation or injury. 10-Not Attempted due to Environmental Limitations-(lack of equipment, weather restraints, etc.). 88-Not Attempted due to Medical Conditions or Safety Concerns. Sit to Stand (QC): 4 Weight Bearing Right Lower Extremity: Right Full Weight Bearing Left Lower Extremity: Left Full Weight Bearing Gait Training Does the Patient Walk?: Yes Distance: 110ft Walk 10 feet (QC): 4 Walk 50 ft with 2 Turns(QC): 4 Gait Assistive Device: FWW Treatments Pt completed functional transfers with SBA. Pt ambulated 110ft with the FWW and CGA. After treatment session, pt was sitting up in the recliner with call light in reach and all needs met. Assessment Current Status: Good Progress Pt tolerated PT well, with good effort. PT Spent Grain Dryer Goals Shelter Goals PT Spent Grain Dryer Goals Time Frame: Jun 19, 2023 Roll Left & Right (QC): 6 Sit to Lying (QC): 6 Lying-Sitting on Side/Bed(QC): 6 Sit to Stand (QC): 6 Chair/Dsw-lm-Xzain Xfer(QC): 6 Toilet Transfer (QC): 6 Does the Patient Walk: Yes Walk 10 feet (QC): 6 Walk 50ft with 2 Turns (QC): 6 Walk 150 ft (QC): 6 PT Plan Problem List Problem List: Activity Tolerance, Functional Strength, Safety, Balance, Gait, Transfer, Bed Mobility, ROM Treatment/Plan Treatment Plan: Continue Plan of Care Treatment Plan: Bed Mobility, Education, Functional Activity Jaida, Functional Strength, Group Therapy, Gait, Safety, Therapeutic Exercise, Transfers Treatment Duration: Jun 19, 2023 Frequency: 6 times per week Estimated Hrs Per Day: .25 hour per day Patient and/or Family Agrees t: Yes Safety Risks/Education Patient Education: Gait Training, Transfer Techniques, Correct Positioning, Safety Issues Teaching Recipient: Patient Teaching Methods: Demonstration, Discussion Response to Teaching: Reinforcement Needed Discharge Recommendations Therapy Discharge Recommendati: Post Acute PT Time Time In: 930 Time Out: 945 DATE: May 29, 2023 Total Billed Treatment Time: 15 Total Billed Treatment 15 min 1 visit GT x 1 LULÚ ORTIZ PT May 29, 2023 10:47
[2023-05-29 11:51] VITALS: BP 126/73
[2023-05-29 11:56] VITALS: BP 148/69
--- NOTE | 2023-05-29 18:35 | Discharge Summary ---
Discharge Summary Hospital Course Problems/Dx: (1) Constipation Status: Acute Qualifiers: Qualified Codes: K59.00 - Constipation, unspecified (2) Dilatation of colon Status: Acute (3) Urinary tract infection Status: Acute Qualifiers: Qualified Codes: N39.0 - Urinary tract infection, site not specified (4) HTN (hypertension) Status: Chronic (5) IDDM (insulin dependent diabetes mellitus) Status: Acute (6) Obesity Status: Chronic Qualifiers: (7) Debility Status: Acute Hospital Course Date of Admission: May 25, 2023 at 16:21 Admission Diagnosis : Constipation, dilated colon Family Physician/Provider: Sachin Larios MD Date of Discharge: 05/29/23 Discharge Diagnosis: Constipation, dilated colon, debility Hospital Course: Calista Fry is an 87 year old female who was admitted with constipation. CT revealed a significantly dilated colon. Surgery was consulted and assisted with her care. There was concern that she may need a partial colectomy if her symptoms did not resolve with conservative measures. She was given Miralax and she began having bowel movements. She had many bowel movements and her symptoms improved. Her course was complicated by a UTI and she was given a course of antibiotics. She was debilitated, but worked with therapy and her strength improved. She was set up with outpatient physical and occupational therapy. She was discharged home, to her assisted living facility, in stable condition. She should follow up with Dr. Larios in about a week. Labs and Pending Lab Test: Laboratory Tests 05/28/23 19:58: Glucometer 234H 05/29/23 05:17: Glucometer 142H 05/29/23 10:56: Glucometer 279H Microbiology 05/25/23 Urine Culture - Final, Complete Escherichia coli Gram Pos Mixed Bacterial Lakshmi See Comments Home Meds Active Reported Atorvastatin Calcium 40 Mg Tablet 40 Mg PO HS Magnesium (Magnesium Oxide) 400 Mg Magnesium Tablet 400 Mg PO 1200,2000 Hydrocodone-Acetamin 10-325 mg (Hydrocodone/Acetaminophen) 10 Mg-325 Mg Tablet 0.5 Each PO 1100,1600 TAKES A TAB Magnesium (Magnesium Oxide) 400 Mg Magnesium Tablet 600 Mg PO DAILY TAKES 1 & (400MG) TABS Calcium (Calcium Carbonate) 600 Mg Calcium (1500 Mg) Tablet 1,200 Mg PO 0800,1200 Nystatin 100,000 Unit/Ml Oral.susp 5 Ml PO QID SWISH AND SWALLOW- USE FOR 10 DAYS Levothyroxine Sodium 112 Mcg Tablet 112 Mcg PO DAILY Tums Ultra (Calcium Carbonate) 400 Mg Calcium (1000 Mg) Tab.chew 800-1,200 Mg PO BID PRN MDD 7 TABS Levemir Flexpen (Insulin Detemir) 100 Unit/Ml (3 Ml) Insuln.pen 22 Unit SQ HS DO NOT HOLD AT HS UNLESS FSBS IS UNDER 80 Cholestyramine Packet (Cholestyramine (with Sugar)) 4 Gram Powd.pack 1 Packet PO 1100 HOLD FOR CONSTIPATION Loperamide (Loperamide HCl) 2 Mg Capsule 2 Mg PO Q48H Levemir Flexpen (Insulin Detemir) 100 Unit/Ml (3 Ml) Insuln.pen 10 Units SQ DAILY Vitamin D2 (Ergocalciferol (Vitamin D2)) 1,250 Mcg (11908 Unit) Capsule 1,250 Mcg PO WED Vitamin D3 (Cholecalciferol (Vitamin D3)) 125 Mcg (5000 Unit) Capsule 125 Mcg PO DAILY Metamucil (Psyllium Husk) 3.4 Gram/5.4 Gram Powder 7 Gm PO TID [Magic Mouth Wash] Susp 15 Ml PO QID PRN SWISH AND SPIT- DO NOT SWALLOW BENADRYL/NYSTATIN/LIDOCAINE 1:1:1 Furosemide 20 Mg Tablet 20 Mg PO Q48H Potassium Chloride 20 Meq Tablet.er 20 Meq PO Q48H Hydrocodone-Acetamin 10-325 mg (Hydrocodone/Acetaminophen) 10 Mg-325 Mg Tablet 1 Ea PO 0600,2000 Mucinex (Guaifenesin) 600 Mg Tab.er.12h 600 Mg PO Q6H PRN Tylenol Extra Strength (Acetaminophen) 500 Mg Tablet 500 Mg PO QID Flintstones with Iron Tab Chew (Pediatric Multivit No.203/Iron) 18 Mg Iron Tab.chew 18 Mg PO DAILY Diclofenac Sodium 1 % Gel..gram. 2 Gm TOP UD PRN Novolog Flexpen (Insulin Aspart) 100 Unit/Ml (3 Ml) Solution Units SQ ACHS USE THE FOLLOWING SLIDING SCALE: 0-150=0 UNITS 151-180=2 UNITS 151-200=4 UNITS 201-250=6 UNITS 251-300=8 UNITS 301-350=10 UNITS 351-400=12 UNITS AND CALL PCP Venlafaxine HCl 37.5 Mg Tab 37.5 Mg PO DAILY Carbidopa-Levodopa 25-100 Tab (Carbidopa/Levodopa) 25 Mg-100 Mg Tablet 1 Ea PO BID Anusol-Hc (Hydrocortisone) 2.5 % Cream..g. 1 Applic RC TID PRN APPLY TO ANAL AREA Gabapentin 400 Mg Capsule 400 Mg PO TID Pramipexole Dihydrochloride (Pramipexole Di-HCl) 0.125 Mg Tablet 0.125 Mg PO 1700 Eliquis (Apixaban) 5 Mg Tablet 5 Mg PO BID Hydroxyzine HCl 25 Mg Tablet 25 Mg PO Q8H PRN Tolterodine Tartrate ER (Tolterodine Tartrate) 4 Mg Cap.er.24h 4 Mg PO DAILY Amlodipine Besylate 10 Mg Tablet 10 Mg PO DAILY Assessment/Pt Instructions see instructions Discharge Planning: >30 minutes discharge planning Discharge Instructions Discharge Diet: ADA Diet Activity as Tolerated: Yes Consultations Surgery Discharge Physical Examination Vital Signs Vital Signs Date Time Temp Pulse Resp B/P (MAP) Pulse Ox O2 Delivery O2 Flow Rate FiO2 05/29/23 14:25 05/29/23 11:56 36.5 68 16 99 Room Air 05/29/23 07:45 2.00 General Appearance: No Apparent Distress, Obese Respiratory: Lungs Clear, No Respiratory Distress Cardiovascular: Regular Rate, Rhythm, No Murmur Gastrointestinal: Normal Bowel Sounds, Soft Extremity: Normal Inspection, Pedal Edema Skin: Normal Color, Warm/Dry Neurologic/Psychiatric: Alert, Normal Mood/Affect Allergies: Coded Allergies: No Known Drug Allergies (Verified , 05/06/19) Copy Copies To 1: SACHIN LARIOS MD Discharge Summary Date of Admission May 25, 2023 at 16:21 Date of Discharge May 29, 2023 at 14:28 Discharge Date: May 29, 2023 Discharge Time: 14:28 Admission Diagnosis Constipation Consults/Procedures Consulations Surgery Discharge Diagnosis Constipation Dilation of colon Debility UTI T2DM HTN Hypothyroidism AFib HLD GERD IBS Chronic pain Morbid obesity (1) Constipation Status: Acute Qualifiers: Qualified Codes: K59.00 - Constipation, unspecified (2) Dilatation of colon Status: Acute (3) Urinary tract infection Status: Acute Qualifiers: Qualified Codes: N39.0 - Urinary tract infection, site not specified (4) HTN (hypertension) Status: Chronic (5) IDDM (insulin dependent diabetes mellitus) Status: Acute (6) Obesity Status: Chronic Qualifiers: (7) Debility Status: Acute CHOLO HUANG MD May 29, 2023 18:33
== END 2023-05-29 12:48 ==
LOC: EDUNIT# 10:02 → ER 10:04 → UNDOADMOB 16:21 → 4TH 16:21 → UNDODISOB 05-29 12:48
PROVIDERS: ADMIT Family Medicine; ATTEND Internal Medicine
DX: K58.1 Irritable bowel syndrome with constipation (principal); K59.39 Other megacolon; N39.0 Urinary tract infection, site not specified; I10 Essential (primary) hypertension; E11.9 Type 2 diabetes mellitus without complications; R53.81 Other malaise; E03.9 Hypothyroidism, unspecified; I48.91 Unspecified atrial fibrillation; E78.5 Hyperlipidemia, unspecified; K21.9 Gastro-esophageal reflux disease without esophagitis; G89.29 Other chronic pain; E66.01 Morbid (severe) obesity due to excess calories; Z79.4 Long term (current) use of insulin; Z79.899 Other long term (current) drug therapy; Z79.890 Hormone replacement therapy; Z68.41 Body mass index [BMI] 40.0-44.9, adult
CPT/HCPCS: 74019; 74022; 74177; 80048; 80053; 81000; 82947 ×4; 83735; 84439; 84443; 85025 ×2; 87077; 87088; 87186; 94640 ×2; 94760 ×2; 96361 ×3; 96366; 96372 ×2; 96374; 96375 ×2; 96376 ×4; 97116 ×2; 97162; 97165; 97530; 99284; G0378; 36415